=== PATIENT | female | born 1960 | race Hispanic/Latino ===

== ENCOUNTER 2016-12-11 23:37 | Inpatient (IN) | payer MEDICARE ==
[2016-12-12 00:13] LABS: Basophils % (Auto) 0.1 % (0.0-1.8); Eosinophils % (Auto) 0.2 % (0.0-4.3); Hematocrit 40.5 % (30.3-42.9); Mean Corpuscular HGB Conc 32 % (30-34); Mean Corpuscular Hemoglobin 30 pg (28-32); Mean Corpuscular Volume 95 fl (79-97); Platelet Count 257 K/mm3 (140-440); Red Blood Count 4.28 M/mm3 (3.65-5.03); Red Cell Distribution Width 14.3 % (13.2-15.2); White Blood Count 15.1 K/mm3 (4.5-11.0)
[2016-12-12 00:22] LABS: BUN/Creatinine Ratio 16.31; Blood Urea Nitrogen 31 mg/dL (7-17); Calcium 10.3 mg/dL (8.4-10.2); Carbon Dioxide 23 mmol/L (22-30); Chloride 88.6 mmol/L (98-107); Glucose 399 mg/dL (65-100); Potassium 4.5 mmol/L (3.6-5.0); Sodium 132 mmol/L (137-145)
[2016-12-12 00:28] LABS: Anion Gap 25 mmol/L
[2016-12-12 00:35] LABS: INR 1.09 (0.87-1.13); Partial Thromboplastin Time 27.6 Sec. (24.2-36.6)
[2016-12-12] MEDS ORDERED: NACL 0.9% 1000 ML 1,000 ML IV ONE ×3 (01:25→18:27)
--- NOTE | 2016-12-12 01:30 | Emergency Department Report ---
ED Neuro Deficit HPI - General Chief Complaint: Neuro Symptoms/Deficit Stated Complaint: AMS Time Seen by Provider: 12/12/16 00:58 Source: patient Mode of arrival: Stretcher Limitations: No Limitations - History of Present Illness Initial Comments: 56-year-old female with past medical history of non-insulin dependent diabetes, hypertension, and chronic intermittent left middle toe infection presents to Hospital complaints of strokelike symptoms since 17:00. Patient states the EMS reports the patient failed the stroke scale tests and had some right arm deficit. Patient states that her speech is clear but occasionally worse Up. at the bedside states that patient is still having this work mixup symptoms. Patient also had episodes of falling today but has history of frequent falls and has chronic left knee pain and needs knee replacement. Patient denies any pain. She takes an aspirin 81 mg daily and has been compliant. She reports she had a recent outpatient MRI for left toe infection. Denies previous history of stroke. PMD: [place] - Related Data Allergies/Adverse Reactions: Allergies Allergy/AdvReac Type Severity Reaction Status Date / Time sulfamethoxazole Allergy Unknown Verified 12/11/16 23:49 [From Bactrim] trimethoprim [From Bactrim] Allergy Unknown Verified 12/11/16 23:49 ED Review of Systems ROS: Stated complaint: AMS Other details as noted in HPI Comment: All other systems reviewed and negative Other: Constitutional: No fevers chills Eyes: No eye pain visual changes ENT: No ear pain or throat pain Neck: Denies pain Respiratory: Denies cough wheezing shortness of breath Cardiovascular: Denies chest pain, palpitations, syncope GI: Denies abdominal pain, nausea, vomiting, diarrhea : Denies dysuria Musculoskeletal: Denies back pain Skin: As per HPI Neurologic: Denies headache Psychiatric: Denies suicidal ideation, hallucinations ED Past Medical Hx - Past Medical History Previous Medical History?: Yes Hx Hypertension: Yes Hx Diabetes: Yes - Surgical History Past Surgical History?: Yes Additional Surgical History: c section x 1 - Social History Smoking Status: Never Smoker Substance Use Type: Alcohol ED Neuro Physical Exam - General Limitations: No Limitations General appearance: alert Suspected Stroke: Yes - Neurological Exam Neurological exam: Present: alert - NIHSS Assessment Interval: Baseline 1a. Level of Consciousness: alert 1b. LOC Questions: answers correctly 1c. LOC Commands: performs tasks correctly 2. Best Gaze: normal 3. Visual: no visual loss 4. Facial Palsy: normal symmetrical movement 5b. Motor Arm Right: no drift 5a. Motor Arm Left: no drift 6a. Motor Leg Left: drift 6b. Motor Leg Right: drift 7. Limb Ataxia: absent 8. Sensory: normal 9. Best Language: no aphasia 10. Dysarthria: normal 11. Extinction/Inattention: no abnormality Total Score: 2 Stroke Severity: Minor Stroke - Other Other exam information: General: No limitations, patient is alert in no acute distress Head exam: Atraumatic, normocephalic Eyes exam: Normal appearance, pupils equal reactive to light, extraocular movements intact ENT: Moist mucous membrane, normal oropharynx Neck exam: Normal inspection, full range of motion, no meningismus nontender Respiratory exam: Clear to auscultation bilateral, no wheezes, rales, crackles Cardiovascular: Normal rate and rhythm, normal heart sounds Abdomen: Soft, nondistended, and nontender, with normal bowel sounds, no rebound, or guarding Extremity: Full range of motion normal inspection no deformity Back: Normal Inspection, full range of motion, no tenderness Neurologic: Alert, oriented x3, cranial nerves intact, see NIH stroke scale. No unilateral deficit noted.Deficit noted at this time but states still present and intermittent Psychiatric: normal affect, normal mood Skin: Left foot third toe ulceration with mild discoloration ED Course Vital Signs 12/11/16 23:50 Temperature 99.2 F Pulse Rate 112 H Respiratory 18 Rate Blood Pressure 108/36 O2 Sat by Pulse 98 Oximetry - Lab Data Result diagrams: 12/12/16 00:05 12/11/16 23:50 Lab Results 12/11/16 12/11/16 12/11/16 Range/Units 23:50 23:50 23:50 WBC (4.5-11.0) K/mm3 RBC (3.65-5.03) M/mm3 Hgb (10.1-14.3) gm/dl Hct (30.3-42.9) % MCV (79-97) fl MCH (28-32) pg MCHC (30-34) % RDW (13.2-15.2) % Plt Count (140-440) K/mm3 Lymph % (Auto) (13.4-35.0) % [place] % (Auto) (0.0-7.3) % Eos % (Auto) (0.0-4.3) % Baso % (Auto) (0.0-1.8) % Lymph # (1.2-5.4) K/mm3 [place] # (0.0-0.8) K/mm3 Eos # (0.0-0.4) K/mm3 Baso # (0.0-0.1) K/mm3 Seg Neutrophils % (40.0-70.0) % Seg Neutrophils # (1.8-7.7) K/mm3 PT 14.0 (12.2-14.9) Sec. INR 1.09 (0.87-1.13) APTT 27.6 (24.2-36.6) Sec. Thrombin Time 16.6 (15.1-19.6) Sec. Sodium 132 L (137-145) mmol/L Potassium 4.5 (3.6-5.0) mmol/L Chloride 88.6 L (98-107) mmol/L Carbon Dioxide 23 (22-30) mmol/L Anion Gap 25 mmol/L BUN 31 H (7-17) mg/dL Creatinine 1.9 H (0.7-1.2) mg/dL Estimated GFR 27 ml/min BUN/Creatinine Ratio 16.31 % Glucose 399 H (65-100) mg/dL Calcium 10.3 H (8.4-10.2) mg/dL Troponin T < 0.010 (0.00-0.029) ng/mL 12/12/16 Range/Units 00:05 WBC 15.1 H (4.5-11.0) K/mm3 RBC 4.28 (3.65-5.03) M/mm3 Hgb 13.0 (10.1-14.3) gm/dl Hct 40.5 (30.3-42.9) % MCV 95 (79-97) fl MCH 30 (28-32) pg MCHC 32 (30-34) % RDW 14.3 (13.2-15.2) % Plt Count 257 (140-440) K/mm3 Lymph % (Auto) 6.5 L (13.4-35.0) % [place] % (Auto) 5.5 (0.0-7.3) % Eos % (Auto) 0.2 (0.0-4.3) % Baso % (Auto) 0.1 (0.0-1.8) % Lymph # 1.0 L (1.2-5.4) K/mm3 [place] # 0.8 (0.0-0.8) K/mm3 Eos # 0.0 (0.0-0.4) K/mm3 Baso # 0.0 (0.0-0.1) K/mm3 Seg Neutrophils % 87.7 H (40.0-70.0) % Seg Neutrophils # 13.2 H (1.8-7.7) K/mm3 PT (12.2-14.9) Sec. INR (0.87-1.13) APTT (24.2-36.6) Sec. Thrombin Time (15.1-19.6) Sec. Sodium (137-145) mmol/L Potassium (3.6-5.0) mmol/L Chloride (98-107) mmol/L Carbon Dioxide (22-30) mmol/L Anion Gap mmol/L BUN (7-17) mg/dL Creatinine (0.7-1.2) mg/dL Estimated GFR ml/min BUN/Creatinine Ratio % Glucose (65-100) mg/dL Calcium (8.4-10.2) mg/dL Troponin T (0.00-0.029) ng/mL - EKG Data -: EKG Interpreted by Me (sinus tach 113 inferior Q waves anterolateral Q waves) When compared to previous EKG there are: previous EKG unavailable - Radiology Data Radiology results: report reviewed (CT head: No acute findings) - Medical Decision Making Patient does not appear to have focal findings on exam but insisted she has intermittent speech abnormality. CT head without acute findings. Will admit to the hospital for further neurologic/stroke workup - Differential Diagnosis CVA, encephalopathy, TIA, ICH Critical Care Time: No Critical care attestation.: If time is entered above; I have spent that time in minutes in the direct care of this critically ill patient, excluding procedure time. ED Disposition Clinical Impression: Speech abnormality, Chronic ulcer of toe of left foot, Diabetes, Hypertension, Obesity, Renal insufficiency Disposition: OP ADMIT IP TO THIS HOSP Is pt being admited?: Yes Condition: Stable Time of Disposition: 02:13 (Dr Winkler/hosp)
--- NOTE | 2016-12-12 01:41 | Cat Scan Report ---
FINAL REPORT PROCEDURE: CT HEAD/BRAIN WO CON TECHNIQUE: Computerized tomography of the head was performed without contrast material. HISTORY: RT ARM RETRACTION MIXES WORDS UP CONFUSION COMPARISON: No prior studies are available for comparison. FINDINGS: Skull and scalp: Normal. Paranasal sinuses: Normal. Ventricles and subarachnoid spaces: Normal. Cerebrum: No evidence of hemorrhage, acute infarction or mass. Mild atrophy and periventricular deep white matter changes.. Cerebellum and brainstem: No evidence of hemorrhage, acute infarction or mass. Vasculature: Normal. Comments: None. IMPRESSION: There is no evidence of an acute intracranial process. Minimal atrophy and periventricular deep white matter changes.
[2016-12-12] MEDS ORDERED: D50W (25GM) Syringe IV PRN (03:23)
[2016-12-12] MEDS ORDERED: ZOFRAN IV PRN (03:31)
[2016-12-12] MEDS ORDERED: DULCOLAX PR PRN (03:31)
[2016-12-12] MEDS ORDERED: MILK OF MAGNESIA PO PRN (03:31)
[2016-12-12] MEDS ORDERED: SODIUM CHLORIDE FLUSH SYRINGE 10 ML IV PRN (03:31)
--- NOTE | 2016-12-12 03:48 | History and Physical Report ---
History of Present Illness Date of examination: 12/12/16 History of present illness: 56-year-old woman history of hypertension, diabetes comes emergency room because the stated that she had slurred speech, difficulty articulating and appear confused, she would not respond when he spoke to her. The symptoms lasted for 30 minutes Review Of Systems: Constitutional: no fever, chills, weight loss Ears, eyes, nose, mouth and throat: no nasal congestion, no nasal discharge, no sinus pressure, blurry vision, diplopia Neck: No neck pain or rigidity. Cardiovascular: chest pain, orthopnea, palpitations Respiratory: No shortness of breath, cough Gastrointestinal: abdominal pain, hematochezia Genitourinary : no dysuria, frequency , hematuria Musculoskeletal: no joint swelling or muscle ache Integumentary: no rash, no pruritis Neurological: no parathesias, focal weakness Endocrine: no cold or heat intolerance, no polyuria or polydipsia Hematologic/Lymphatic: no easy bruising, no easy bleeding, no gland swelling Allergic/Immunologic: no urticaria, no angioedema. PAST MEDICAL HISTORY: hypertension, diabetes PAST SURGICAL HISTORY: c/section 1 FAMILY HISTORY: Hypertension SOCIAL HISTORY: Denies alcohol, tobacco, drugs Medications and Allergies Allergies Allergy/AdvReac Type Severity Reaction Status Date / Time sulfamethoxazole Allergy Unknown Verified 12/11/16 23:49 [From Bactrim] trimethoprim [From Bactrim] Allergy Unknown Verified 12/11/16 23:49 Home Medications Medication Instructions Recorded Confirmed Last Taken Type Amitriptyline [Elavil] 100 mg PO QHS 12/12/16 12/12/16 12/11/16 History Atenolol [Tenormin] 50 mg PO DAILY 12/12/16 12/12/16 12/11/16 History Gabapentin [Neurontin] 800 mg PO Q8H 12/12/16 12/12/16 12/11/16 History HYDROcodone/APAP 5-325 [[place] 1 each PO Q6HR PRN 12/12/16 12/12/16 12/11/16 History 5/325] Levothyroxine [Synthroid] 100 mcg PO QAM 12/12/16 12/12/16 12/11/16 History Lisinopril [Zestril] 20 mg PO QDAY 12/12/16 12/12/16 12/11/16 History Simvastatin [Zocor TAB] 40 mg PO QHS 12/12/16 12/12/16 12/11/16 History glipiZIDE [Glucotrol] 10 mg PO BID 12/12/16 12/12/16 12/11/16 History metFORMIN [Glucophage] 1,000 mg PO BID 12/12/16 12/12/16 12/11/16 History metFORMIN [Glucophage] 500 mg PO QDAY 12/12/16 12/12/16 12/11/16 History Active Meds: Active Medications Acetaminophen (Tylenol) 650 mg PO Q4H PRN PRN Reason: Pain, Mild (1-3) Aspirin (Aspirin) 325 mg PO QDAY LENARD Bisacodyl (Dulcolax) 10 mg DE QDAY PRN PRN Reason: Constipation Dextrose (D50w (25gm)) 50 ml IV PRN PRN PRN Reason: Hypoglycemia Enoxaparin Sodium (Lovenox) 30 mg SUB-Q QDAY LENARD Hydralazine HCl (Apresoline) 5 mg IV Q6H PRN PRN Reason: Keep SBP between 160-185 mm Hg Sodium Chloride (Nacl 0.45% 1000 Ml) 1,000 mls @ 75 mls/hr IV DIRECT LENARD Insulin Aspart (Novolog) 0 units SUB-Q ACHS LENARD PRN Reason: Protocol Magnesium Hydroxide (Milk Of Magnesia) 30 ml PO Q4H PRN PRN Reason: Constipation Ondansetron HCl (Zofran) 4 mg IV Q8H PRN PRN Reason: N/V unrelieved by Reglan Simvastatin (Zocor) 20 mg PO QHS [facility] Sodium Chloride (Sodium Chloride Flush Syringe 10 Ml) 10 ml INJ PRN PRN PRN Reason: LINE FLUSH Exam - Physical Exam Narrative exam: Gen. appearance: Patient lying in bed, no apparent distress HEENT: Normocephalic, atraumatic, pupils equally round and reactive to light, extraocular movement intact, and no sclericterus,. No JVD or thyromegaly or nodule,neck supple, no carotid bruit ,mucous membranes moist, no exudate or erythema Heart: S1, S2, regular rate and rhythm Lungs: Clear to auscultation bilaterally, breathing comfortable Abdomen: Positive bowel sounds, nontender, nondistended, no organomegaly Extremity: No edema, cyanosis, clubbing Skin: No rash, nodules, warm, dry Neuro: Oriented 3, cranial nerves II-12 intact, speech is fluent, motor and sensory intact - Constitutional Vitals: Temp Pulse Resp BP Pulse Ox 99.2 F 101 H 18 91/35 94 12/11/16 23:50 12/12/16 03:06 12/12/16 03:06 12/12/16 03:06 12/12/16 03:06 Results - Labs CBC & Chem 7: 12/14/16 03:35 12/14/16 03:35 Labs: Abnormal lab results 12/11/16 12/12/16 Range/Units 23:50 00:05 WBC 15.1 H (4.5-11.0) K/mm3 Lymph % (Auto) 6.5 L (13.4-35.0) % Lymph # 1.0 L (1.2-5.4) K/mm3 Seg Neutrophils % 87.7 H (40.0-70.0) % Seg Neutrophils # 13.2 H (1.8-7.7) K/mm3 Sodium 132 L (137-145) mmol/L Chloride 88.6 L (98-107) mmol/L BUN 31 H (7-17) mg/dL Creatinine 1.9 H (0.7-1.2) mg/dL Glucose 399 H (65-100) mg/dL Calcium 10.3 H (8.4-10.2) mg/dL - Imaging and Cardiology EKG: image reviewed Chest x-ray: image reviewed Assessment and Plan Assessment TIA Renal insufficiency, chronic versus acute Leukocytosis Hypertension Diabetes type 2 Plan Admit to medicine Obtain MRI of the head, carotid Doppler, echo Do neurochecks, swallow screen Start aspirin, statin, IV hydralazine for blood pressure control Consult neurology, physical and speech, occupational therapy Start IV fluids, check UA, blood cultures, hold antibiotics for now DVT prophylaxis
[2016-12-12] MEDS ORDERED: NACL 0.45% 1000 ML 1,000 ML IV SCH (04:00)
[2016-12-12] MEDS ORDERED: NACL 0.45% 1000 ML 1,000 ML IV ONE (04:19)
--- NOTE | 2016-12-12 08:24 | Admit Criteria Form ---
Admission Criteria Documentation: NEUROLOGY GRG Clinical Indications for Admission to Inpatient Care (Place ' X' for any and all applicable criteria): Hospital admission is needed for appropriate care of the patient because of 1 or more of the following: [ ]I. Encephalitis [ ]II. Severe COMPOSING MACHINE OPERATOR/TENDER infections indicated by 1 or more of the following(1)(2)(3) : [ ]a) Intracranial abscess [ ]b) Spinal abscess or myelitis [ ]c) Tuberculous or other nonbacterial, nonviral COMPOSING MACHINE OPERATOR/TENDER infection(8) [ ]III. Vasculitis and 1 or more of the following(14)(15): []a) Altered mental status that is severe or persistent or other acute neurologic change []b) Psychosis []c) Seizure [ ]IV. Status epilepticus or repetitive seizures not controlled with emergent treatment [A] (7)(8) [ ]V. Altered mental status that is severe or persistent [ ]. Transient alteration in consciousness with high-risk etiology; examples include (12)(13): [ ]a) Cardiovascular source [ ]b) Cataplexy [ ]VII. Cerebral aneurysm requiring ANY ONE of the following(14): [ ]a) IV antihypertensives or vasoactive agents [ ]b) Sedation and analgesia for suspected leak [ ]c) Need for external ventricular drainage and cerebral perfusion pressure monitoring [ ]d) Emergent evaluation to determine need for surgical clipping or endovascular coiling by interventional radiology. If surgery is required ( Also use Craniotomy, Supratentorial, for Surgery of Bleeding Intracranial Aneurysm (for bleeding aneurysm) or Craniotomy, Supratentorial (for nonbleeding aneurysm) as appropriate. [ ]VIII. New-onset severe neurologic symptom requiring inpatient care indicated by ANY ONE of the following: [ ]a) Aphasia(15) [ ]b) Weakness (grade 3 or less) [ ]c) Paralysis (eg, hemiplegia) [ ]d) Spasticity(16) [ ]e) Dystonia [ ]e) Ataxia(17) [ ]f) Amnesia(18) [ ]g) Involuntary movements(19) [ ]h) Vertigo [ ] Visual loss [ ]i) Other severe neurologic finding (eg, papilledema, mass effect on imaging, myoclonus not treatable at alternative level of care (eg, observation care) [ ]IX. Guillain-[place] syndrome(20) [ ]X. Myasthenia gravis crisis or inpatient monitoring need as indicated by 1 or more of the following(21): [ ]a) Intensive treatment (eg, course of plasmapheresis) with inadequate outpatient situation to monitor patients status [ ]b) Inadequate airway protection [ ]c) Respiratory insufficiency requiring intubation or inpatient. monitoring [ ]d) Progressive dysphagia with failure to thrive [ ]XI. Multiple sclerosis or other acute demyelinating disease requiring inpatient care as indicated by 1 or more of the following (22)(23): [ ]a) Acute severe deterioration requiring inpatient treatment (eg, IV steroids, plasmapheresis, close observation) [ ]b) Acute complication requiring inpatient care (eg, sepsis, severe decubitus, aspiration) [ ]XII.Parkinson disease requiring inpatient care (Also use Optimal Recovery Care Criteria or General Recovery Criteria as appropriate) indicated by 1 or more of the following(25): [ ]a) Infection (eg, aspiration pneumonia) not treatable at alternative level of care [ ]b Dehydration that is severe or persistent [ ]c) Life-threatening agitation or psychotic behavior not treatable on emergency, observation care, or alternative level (eg, residential) basis [ ]d) Severe medication withdrawal effects (eg, freezing, neuroleptic malignant syndrome) not responsive to emergency and observation care treatment ( as appropriate) [ ]e) Other severe manifestation not treatable at alternative level of care [ ]XII. Amyotrophic lateral sclerosis with inpatient care needs as indicated by ANY ONE of the following(26): [ ]a) Acute complications (eg, aspiration pneumonia, sepsis ) requiring inpatient care ( see other optimal Recovery Guideline as appropriate) [ ]b) Dehydration that is severe persistent AND artificial support desired [ ]c) Inadequate airway protection AND artificial support desired [ ]d) Severe ventilatory insufficiency AND artificial support desired [ ]XIII. Myasthenia gravis crisis or inpatient monitoring need as indicated by 1 or more of the following(21): [] a) Inadequate airway protection []b) Respiratory insufficiency requiring intubation or inpatient monitoring []c) Progressive dysphagia with failure to thrive []d) Intensive treatment (e.g., course of plasmapheresis) with inadequate outpatient situation to monitor patients status [ ]XIV. Multiple sclerosis or other acute demyelinating disease requiring inpatient care indicated by 1 or more of the following[C](36)(43)(44)(45)(46): []a) Acute severe deterioration requiring inpatient treatment (eg, IV steroids, plasmapheresis, close observation) []b) Acute complication requiring inpatient care (eg, sepsis, severe decubitus, aspiration) [ ]XV. Intracranial hypertension (e.g., pseudotumor cerebri) requiring inpatient care (e.g., acute visual loss, inadequate oral intake) (47)(48)(49) [ ]XVI. Parkinson disease requiring inpatient care (Also use Optimal Recovery Care Criteria or General Recovery Criteria as appropriate) indicated by 1 or more of the following(25): [] a) Infection (e.g., aspiration pneumonia) not treatable at alternative level of care []b) Volume depletion not responsive to emergency and observation care treatment (as appropriate) []c) Life-threatening agitation or psychotic behavior not treatable on emergency, observation care, or alternative level (e.g., residential) basis []d) Severe medication withdrawal effects (e.g., freezing, neuroleptic malignant syndrome) not responsive to emergency and observation care treatment (as appropriate) []e) Other severe manifestation not treatable at alternative level of care [ ]XVII. Amyotrophic lateral sclerosis with inpatient care needs as indicated by1 or more of the following(42): []a) Acute complications (eg, aspiration pneumonia, sepsis) requiring inpatient care (see other Optimal Recovery Guideline or General Recovery Guideline as appropriate) []b) Dehydration that is severe or persistent AND artificial support desired []c) Inadequate airway protection AND artificial support desired []d) Severe ventilatory insufficiency AND artificial support desired [ ]XVIII. Severe myopathy, neuropathy, or other neuromuscular disease indicated by 1 or more of the following(42)(52)(53)(54): []a ) New-onset severe diffuse weakness (eg, strength 3/5 or less) []b) Severe dysphagia []c) Dyspnea at rest or with minimal exertion (new) []d) Inadequate airway protection []e) Inadequate ventilation indicated by 1 or more of the following : i) Partial pressure of carbon dioxide greater than 44 mm Hg ( 5.9 kPa) (new) ii) Reduced peak expiratory flow rate (new) iii) Vital capacity less than 50% of predicted (less than 15 mL/kg) iv) Peak inspiratory force less negative than -30 cm H2O (- 2942 Pa) [ ]XVII.Complications of congenital or degenerative disease (eg, infection, seizures, dehydration, injury) not responsive to emergency and observation care treatment (as appropriate ) [C](16)(29)(30) [ ]XVIII.Suspected or confirmed nerve or muscle toxic injury, including ANY ONE of the following: [ ]a) Rhabdomyolysis(31) i) Acute renal failure ii) Dehydration that is severe or persistent iii) Altered mental status that is severe or persistent iv) Electrolyte abnormality that remains after emergency or observation level care ( as appropriate) [ ]b) Botulism(32) [ ]c) Other severe toxin-induced sign or symptom [ ]XIX. Neurologic trauma requiring inpatient treatment (medical) indicated by ANY ONE of the following(33)(34): [ ]a) Vital signs or neurologic signs more frequently than every 4 hours [ ]b) Hyperosmolar therapy [ ]c) Respiratory monitoring [ ]d) Intracranial pressure monitoring and treatment [ ]e) Stabilization and immobilization device placement (eg, braces, body jacket) [ ]f) Intubation & mechanical ventilation for airway protection or therapeutic hyperventilation [ ]g) Other treatment or monitoring needed that requires inpatient level of care [ ]XX.Complications of neurologic devices (eg, ventricular shunt, neurostimulator) requiring 1 or more of the following(35)(36): [ ]a) IV antibiotics with monitoring while awaiting culture results [ ]b) Monitoring for hydrocephalus [ X]XXI. Neurology condition symptom, or finding for which emergency and observation care have failed or are not considered appropriate. See General Criteria: Observation Care ISC, General Admission Criteria GRG, or Pediatric General Admission Criteria GRG guideline as appropriate. The original [facility] [employer] content created by [email or web address] has been revised. The portions of the content which have been revised are identified through the use of italic text or in bold, and [facility] has neither reviewed nor approved the modified material. All other unmodified content is copyright [facility] Please see references footnoted in the original [facility] edition 2016 Admission Criteria Met: Yes
[2016-12-12] MEDS ORDERED: LOVENOX SUB-Q SCH (10:00)
--- NOTE | 2016-12-12 10:35 | Magnetic Resonance Report ---
MRI scan of brain: History: Stroke. Technique: Multiplanar, multisequence images were obtained without contrast injection. Findings: No evidence of restricted diffusion. Ventricles are normal in size and location. No evidence of acute ischemia, hemorrhage or mass. No extra-axial fluid collection. Normal brainstem and cerebellum. Periventricular areas of hyperintensity. Normal sinuses and mastoid air cells. Impression: No acute intracranial abnormality. Small vessel ischemic changes.
[2016-12-12] MEDS: ASPIRIN PO SCH (11:42)
[2016-12-12] MEDS: LOVENOX SUB-Q SCH (11:43)
[2016-12-12] MEDS: NOVOLOG SUB-Q SCH ×4 (11:44→21:21)
[2016-12-12] MEDS ORDERED: PNEUMOVAX 23 IM ONE (12:00)
[2016-12-12] MEDS ORDERED: Fluarix Quad 2017-2018(36 MOS+) IM ONE (12:00)
--- NOTE | 2016-12-12 15:13 | Event Note ---
Date: 12/12/16 Patient seen and evaluated. Admitted with altered mental status and TIA suspected, but MRI brain with no abnormality. Diff dg - glycemic hyperosmolar state vs infection vs drug use. Will obtain UA , urine culture, UDS and CXR. Continue empiric antibiotic coverage and supportive care.
--- NOTE | 2016-12-12 15:34 | XRay Report ---
CHEST ONE VIEW INDICATION: Shortness of breath. COMPARISON: None similar. FINDINGS: Portable, single, frontal chest radiograph demonstrates hypoinflation with exaggerated cardiomediastinal silhouette. Grossly clear lungs, though markings slightly crowded centrally. Thoracic spondylosis. Extrinsic EKG leads. CONCLUSION: Limited, though unremarkable chest radiograph, as described. Thank you for the opportunity to participate in this patient's care.
[2016-12-12] MEDS: NACL 0.9% 1000 ML 1,000 ML IV SCH ×2 (18:22→19:53)
[2016-12-12] MEDS: ZOCOR PO SCH (21:20)
[2016-12-12 21:41] LABS: Urine Drugs of Abuse Note Disclamer
[2016-12-12 21:59] LABS: Bacteria,Urine 4+ /HPF (Negative); Bilirubin,Urine NEG (Negative); Blood,Urine LG (Negative); Ketones,Urine NEG (Negative); Leukocyte Esterase,Urine LG (Negative); Nitrite,Urine NEG (Negative); Urobilinogen,Urine < 2.0 mg/dL (<2.0); WBC,Urine > 182.0 /HPF (0.0-6.0)
[2016-12-13 03:56] LABS: Basophils % (Auto) 0.2 % (0.0-1.8); Eosinophils % (Auto) 0.1 % (0.0-4.3); Hematocrit 34.3 % (30.3-42.9); Hemoglobin 11.3 gm/dl (10.1-14.3); Mean Corpuscular HGB Conc 33 % (30-34); Mean Corpuscular Hemoglobin 31 pg (28-32); Mean Corpuscular Volume 93 fl (79-97); Platelet Count 118 K/mm3 (140-440); Red Blood Count 3.68 M/mm3 (3.65-5.03); Red Cell Distribution Width 14.8 % (13.2-15.2); White Blood Count 9.9 K/mm3 (4.5-11.0)
[2016-12-13 04:29] LABS: Albumin 2.6 g/dL (3.9-5); Albumin/Globulin Ratio 0.6 %; BUN/Creatinine Ratio 15.8; Bilirubin,Total 0.3 mg/dL (0.1-1.2); Calcium 8.3 mg/dL (8.4-10.2); Chloride 96.5 mmol/L (98-107); Magnesium 1.2 mg/dL (1.7-2.3); Phosphorous 2.7 mg/dL (2.5-4.5); Potassium 4.5 mmol/L (3.6-5.0); Total Protein 6.8 g/dL (6.3-8.2)
[2016-12-13] MEDS: NACL 0.9% 1000 ML 1,000 ML IV SCH ×2 (05:23→14:11)
[2016-12-13] MEDS: NOVOLOG SUB-Q SCH ×4 (08:26→22:00)
[2016-12-13] MEDS: TYLENOL PO PRN ×2 (09:33→22:34)
[2016-12-13] MEDS: ASPIRIN PO SCH (09:35)
[2016-12-13] MEDS: LOVENOX SUB-Q SCH (09:35)
[2016-12-13] MEDS: ROCEPHIN/NS 2 GM/100 ML 2 GM/100 ML BAG IV SCH (12:39)
--- NOTE | 2016-12-13 13:24 | Consultation ---
History of Present Illness - Reason for Consult Consult date: 12/13/16 acute renal failure Requesting physician: DOMINGO COOK - History of Present Illness 56-year-old female with past medical history of non-insulin dependent diabetes, hypertension, and chronic intermittent left middle toe infection presents to Hospital complaints of stroke like symptoms. Per chart pt has slurred speech and right arm weakness in association with confusion. Family also reported that she had a fall. We are consulted today for evaluation of elevated BUN/CR of 49/ 3.1 mg/dL. Admission CR was at 1.9. Patient is not able to proved detailed history. No contrast exposure. No baseline CRs available. She follows up at [facility]. No NSAIDs. Past History Past Medical History: diabetes, hypertension, other (frequent falls ) Social history: other (lives with ). denies: smoking, alcohol abuse, IV drug use Family history: no significant family history Medications and Allergies Allergies Allergy/AdvReac Type Severity Reaction Status Date / Time sulfamethoxazole Allergy Unknown Verified 12/11/16 23:49 [From Bactrim] trimethoprim [From Bactrim] Allergy Unknown Verified 12/11/16 23:49 Home Medications Medication Instructions Recorded Confirmed Last Taken Type Amitriptyline [Elavil] 100 mg PO QHS 12/12/16 12/12/16 12/11/16 History Atenolol [Tenormin] 50 mg PO DAILY 12/12/16 12/12/16 12/11/16 History Gabapentin [Neurontin] 800 mg PO Q8H 12/12/16 12/12/16 12/11/16 History HYDROcodone/APAP 5-325 [[place] 1 each PO Q6HR PRN 12/12/16 12/12/16 12/11/16 History 5/325] Levothyroxine [Synthroid] 100 mcg PO QAM 12/12/16 12/12/16 12/11/16 History Lisinopril [Zestril] 20 mg PO QDAY 12/12/16 12/12/16 12/11/16 History Simvastatin [Zocor TAB] 40 mg PO QHS 12/12/16 12/12/16 12/11/16 History glipiZIDE [Glucotrol] 10 mg PO BID 12/12/16 12/12/16 12/11/16 History metFORMIN [Glucophage] 1,000 mg PO BID 12/12/16 12/12/16 12/11/16 History metFORMIN [Glucophage] 500 mg PO QDAY 12/12/16 12/12/16 12/11/16 History Active Meds: Active Medications Acetaminophen (Tylenol) 650 mg PO Q4H PRN PRN Reason: Pain, Mild (1-3) Last Admin: 12/13/16 09:33 Dose: 650 mg Aspirin (Aspirin) 325 mg PO QDAY [facility] Last Admin: 12/13/16 09:35 Dose: 325 mg Bisacodyl (Dulcolax) 10 mg [place] QDAY PRN PRN Reason: Constipation Dextrose (D50w (25gm)) 50 ml IV PRN PRN PRN Reason: Hypoglycemia Enoxaparin Sodium (Lovenox) 40 mg SUB-Q QDAY@1000 [facility] Last Admin: 12/13/16 09:35 Dose: 40 mg Hydralazine HCl (Apresoline) 5 mg IV Q6H PRN PRN Reason: Keep SBP between 160-185 mm Hg Ceftriaxone Sodium (Rocephin/Ns 2 Gm/100 Ml) 2 gm in 100 mls @ 200 mls/hr IV Q24HR [facility] PRN Reason: Protocol Last Admin: 12/13/16 12:39 Dose: 200 mls/hr Sodium Chloride (Nacl 0.9% 1000 Ml) 1,000 mls @ 100 mls/hr IV DIRECT [facility] Insulin Aspart (Novolog) 0 units SUB-Q ACHS [facility] PRN Reason: Protocol Last Admin: 12/13/16 12:22 Dose: 4 units Magnesium Hydroxide (Milk Of Magnesia) 30 ml PO Q4H PRN PRN Reason: Constipation Ondansetron HCl (Zofran) 4 mg IV Q8H PRN PRN Reason: N/V unrelieved by Reglan Simvastatin (Zocor) 20 mg PO QHS [facility] Last Admin: 12/12/16 21:20 Dose: 20 mg Sodium Chloride (Sodium Chloride Flush Syringe 10 Ml) 10 ml IV PRN PRN PRN Reason: LINE FLUSH Review of Systems Constitutional: anorexia, fatigue, weakness Ears, nose, mouth and throat: no decreased hearing, no nasal congestion Cardiovascular: no chest pain, no orthopnea, no palpitations, no syncope, no lightheadedness Respiratory: no cough, no hemoptysis Gastrointestinal: no nausea, no vomiting, no diarrhea, no constipation Genitourinary Female: no pelvic pain, no flank pain, no urinary frequency, no urgency Rectal: no pain, no incontinence Musculoskeletal: no neck stiffness, no neck pain Integumentary: no rash, no pruritis, no redness Neurological: no paralysis, no weakness, no parathesias Psychiatric: disorientation, other (confused, ) Endocrine: no cold intolerance, no heat intolerance Exam - Vital Signs Vital signs: Vital Signs Temp Pulse Resp BP Pulse Ox 99.2 F 112 H 18 108/36 98 12/11/16 23:50 12/11/16 23:50 12/11/16 23:50 12/11/16 23:50 12/11/16 23:50 Results - Lab Results 12/13/16 03:39 12/13/16 03:39 Most recent lab results Calcium 8.3 mg/dL (8.4-10.2) L D 12/13/16 03:39 Phosphorus 2.70 mg/dL (2.5-4.5) 12/13/16 03:39 Magnesium 1.20 mg/dL (1.7-2.3) L 12/13/16 03:39 Assessment and Plan 1. TAYA likely 2/2 prerenal azotemia/ATN. Underlying CKD ? baseline unavailable 2. Dehydration 3. Essential HTN 4. Type II Diabetes 5. AMS Plan: Obtain Urine studies Obtain renal U/S IVF Avoid nephrotoxins No ACEI/ARB Obtain records from [facility] --baseline CR Further recommendations to follow Thank you for the consult
--- NOTE | 2016-12-13 19:10 | Progress Note ---
Assessment and Plan Assessment and plan: 1. Sepsis secondary to UTI Fever, tachycardia, positive UA, elevated lactic acid Urine and blood cultures obtained Started on IV antibiotics and IV fluids 2. Acute toxic metabolic encephalopathy Secondary to combination of sepsis and uremia Treat underlying conditions 3. Acute renal failure with metabolic acidosis and uremia Obtain renal ultrasound to exclude obstruction Check magnesium and phosphorous Give IV fluids Consult nephrology 4. Hypomagnesemia Replace and recheck in a.m. 5. Hypertension Home antihypertensives on hold BP within normal limits and no medication Monitor 6. Diabetes Accu-Cheks and SSI 7. Hyperlipidemia On Statin 8. Hypothyroidism TSH within normal limits Continue Synthroid at current dose 9. DVT/GI prophylaxis History Interval history: Somnolent, but easily arousable; confused, but answering simple questions appropriately Hospitalist Physical - Constitutional Vitals: Temp Pulse Resp BP Pulse Ox 98.4 F 60 20 101/59 94 12/13/16 17:00 12/13/16 17:00 12/13/16 17:00 12/13/16 17:00 12/13/16 17:00 General appearance: Present: mild distress, obese - EENT Eyes: Present: PERRL, EOM intact. Absent: scleral icterus, conjunctival injection - Neck Neck: Present: supple, normal ROM. Absent: masses or JVD - Respiratory Respiratory effort: normal Respiratory: bilateral: diminished, negative: rhonchi, wheezing - Cardiovascular Rhythm: other (tachycardic) Heart Sounds: Present: S1 & S2. Absent: systolic murmur - Extremities Extremities: no ischemia - Abdominal General gastrointestinal: soft, non-tender, non-distended, normal bowel sounds, other (abdomen obese, protuberant) - Integumentary Integumentary: Present: dry. Absent: jaundice, rash, pale - Psychiatric Psychiatric: other (confused) - Neurologic Neurologic: moves all extremities Results - Labs CBC & Chem 7: 12/14/16 03:35 12/14/16 03:35 Labs: Laboratory Last Values WBC 9.9 K/mm3 (4.5-11.0) 12/13/16 03:39 RBC 3.68 M/mm3 (3.65-5.03) 12/13/16 03:39 Hgb 11.3 gm/dl (10.1-14.3) 12/13/16 03:39 Hct 34.3 % (30.3-42.9) D 12/13/16 03:39 MCV 93 fl (79-97) 12/13/16 03:39 MCH 31 pg (28-32) 12/13/16 03:39 MCHC 33 % (30-34) 12/13/16 03:39 RDW 14.8 % (13.2-15.2) 12/13/16 03:39 Plt Count 118 K/mm3 (140-440) L 12/13/16 03:39 Lymph % (Auto) 7.4 % (13.4-35.0) L 12/13/16 03:39 [place] % (Auto) 7.6 % (0.0-7.3) H 12/13/16 03:39 Eos % (Auto) 0.1 % (0.0-4.3) 12/13/16 03:39 Baso % (Auto) 0.2 % (0.0-1.8) 12/13/16 03:39 Lymph # 0.7 K/mm3 (1.2-5.4) L 12/13/16 03:39 [place] # 0.7 K/mm3 (0.0-0.8) 12/13/16 03:39 Eos # 0.0 K/mm3 (0.0-0.4) 12/13/16 03:39 Baso # 0.0 K/mm3 (0.0-0.1) 12/13/16 03:39 Seg Neutrophils % 84.7 % (40.0-70.0) H 12/13/16 03:39 Seg Neutrophils # 8.4 K/mm3 (1.8-7.7) H 12/13/16 03:39 PT 14.0 Sec. (12.2-14.9) 12/11/16 23:50 INR 1.09 (0.87-1.13) 12/11/16 23:50 APTT 27.6 Sec. (24.2-36.6) 12/11/16 23:50 Thrombin Time 16.6 Sec. (15.1-19.6) 12/11/16 23:50 Sodium 133 mmol/L (137-145) L 12/13/16 03:39 Potassium 4.5 mmol/L (3.6-5.0) 12/13/16 03:39 Chloride 96.5 mmol/L (98-107) L 12/13/16 03:39 Carbon Dioxide 18 mmol/L (22-30) L 12/13/16 03:39 Anion Gap 23 mmol/L 12/13/16 03:39 BUN 49 mg/dL (7-17) H 12/13/16 03:39 Creatinine 3.1 mg/dL (0.7-1.2) H D 12/13/16 03:39 Estimated GFR 15 ml/min 12/13/16 03:39 BUN/Creatinine Ratio 15.80 % 12/13/16 03:39 Glucose 173 mg/dL (65-100) H 12/13/16 03:39 POC Glucose 247 (70-105) H 12/13/16 17:23 Lactic Acid 2.90 mmol/L (0.7-2.0) H* 12/12/16 19:51 Calcium 8.3 mg/dL (8.4-10.2) L D 12/13/16 03:39 Phosphorus 2.70 mg/dL (2.5-4.5) 12/13/16 03:39 Magnesium 1.20 mg/dL (1.7-2.3) L 12/13/16 03:39 Total Bilirubin 0.30 mg/dL (0.1-1.2) 12/13/16 03:39 AST 25 units/L (5-40) 12/13/16 03:39 ALT 23 units/L (7-56) 12/13/16 03:39 Alkaline Phosphatase 83 units/L (35-129) 12/13/16 03:39 Troponin T < 0.010 ng/mL (0.00-0.029) 12/11/16 23:50 Total Protein 6.8 g/dL (6.3-8.2) 12/13/16 03:39 Albumin 2.6 g/dL (3.9-5) L 12/13/16 03:39 Albumin/Globulin Ratio 0.6 % 12/13/16 03:39 Triglycerides 166 mg/dL (2-149) H 12/13/16 03:39 Cholesterol 66 mg/dL (50-199) 12/13/16 03:39 LDL Cholesterol Direct 24 mg/dL (50-130) L 12/13/16 03:39 HDL Cholesterol 9 mg/dL (40-59) L 12/13/16 03:39 Cholesterol/HDL Ratio 7.33 % 12/13/16 03:39 TSH 2.640 mlU/mL (0.270-4.200) 12/12/16 15:23 Urine Color Yellow (Yellow) 12/12/16 21:30 Urine Turbidity Turbid (Clear) 12/12/16 21:30 Urine pH 5.0 (5.0-7.0) 12/12/16 21:30 Ur Specific [place] 1.015 (1.003-1.030) 12/12/16 21:30 Urine Protein 100 mg/dl mg/dL (Negative) 12/12/16 21:30 Urine Glucose (UA) Neg mg/dL (Negative) 12/12/16 21:30 Urine Ketones Neg mg/dL (Negative) 12/12/16 21:30 Urine Blood Lg (Negative) 12/12/16 21:30 Urine Nitrite Neg (Negative) 12/12/16 21:30 Urine Bilirubin Neg (Negative) 12/12/16 21:30 Urine Urobilinogen < 2.0 mg/dL (<2.0) 12/12/16 21:30 Ur Leukocyte Esterase Lg (Negative) 12/12/16 21:30 Urine WBC (Auto) > 182.0 /HPF (0.0-6.0) H 12/12/16 21:30 Urine RBC (Auto) 62.0 /HPF (0.0-6.0) 12/12/16 21:30 U Epithel Cells (Auto) 7.0 /HPF (0-13.0) 12/12/16 21:30 Urine Bacteria (Auto) 4+ /HPF (Negative) 12/12/16 21:30 Urine WBC Clumps 3+ /HPF 12/12/16 21:30 Calcium Oxalate Crystal 3+ 12/12/16 21:30 Urine Opiates Screen Presumptive negative 12/12/16 21:30 Urine Methadone Screen Presumptive negative 12/12/16 21:30 Ur Barbiturates Screen Presumptive negative 12/12/16 21:30 Ur Phencyclidine Scrn Presumptive negative 12/12/16 21:30 Ur Amphetamines Screen Presumptive negative 12/12/16 21:30 U Benzodiazepines Scrn Presumptive negative 12/12/16 21:30 Urine Cocaine Screen Presumptive negative 12/12/16 21:30 U Marijuana (THC) Screen Presumptive negative 12/12/16 21:30 Drugs of Abuse Note Disclamer 12/12/16 21:30
[2016-12-13] MEDS: ZOCOR PO SCH (22:34)
[2016-12-14 04:06] LABS: Basophils % (Auto) 0.1 % (0.0-1.8); Eosinophils % (Auto) 0.9 % (0.0-4.3); Hematocrit 31.5 % (30.3-42.9); Hemoglobin 10.5 gm/dl (10.1-14.3); Mean Corpuscular HGB Conc 33 % (30-34); Mean Corpuscular Hemoglobin 31 pg (28-32); Mean Corpuscular Volume 92 fl (79-97); Red Blood Count 3.42 M/mm3 (3.65-5.03); Red Cell Distribution Width 14.7 % (13.2-15.2); White Blood Count 5.5 K/mm3 (4.5-11.0)
[2016-12-14 04:09] LABS: Platelet Count 86 K/mm3 (140-440)
[2016-12-14 04:21] LABS: Calcium 8.1 mg/dL (8.4-10.2); Chloride 96.2 mmol/L (98-107); Magnesium 1.3 mg/dL (1.7-2.3); Phosphorous 4.4 mg/dL (2.5-4.5); Potassium 5.1 mmol/L (3.6-5.0)
--- NOTE | 2016-12-14 09:39 | Ultrasound Report ---
ULTRASOUND RENAL BILATERAL HISTORY: Acute renal failure. TECHNIQUE: transabdominal ultrasound with color Doppler interrogation. FINDINGS: The right kidney measures 12.2 x 5.6 x 5.9cm. Right renal cortex: 1.9cm. The left kidney measures 9.4 x 6.4 x 5.6cm. Left renal cortex: 1.7cm. No comparison. The right kidney appears normal size, contour and echotexture. No right renal lesion or hydronephrosis. Views of the left kidney are very limited. No gross left renal abnormality is appreciated. IMPRESSION: Limited exam. No abnormality is appreciated.
[2016-12-14] MEDS: ASPIRIN PO SCH (10:19)
[2016-12-14] MEDS: ROCEPHIN/NS 2 GM/100 ML 2 GM/100 ML BAG IV SCH (10:19)
[2016-12-14] MEDS: LOVENOX SUB-Q SCH (10:22)
[2016-12-14] MEDS: NACL 0.9% 1000 ML 1,000 ML IV SCH (10:54)
[2016-12-14] MEDS: NOVOLOG SUB-Q SCH ×4 (11:20→22:01)
--- NOTE | 2016-12-14 12:38 | Progress Note ---
Assessment and Plan Assessment and plan: 1. Sepsis secondary to UTI Fever, tachycardia, positive UA, elevated lactic acid Urine and blood cultures positive for GNR Change antibiotics to Zosyn and levofloxacin Continue aggressive hydration Supportive care 2. Acute toxic metabolic encephalopathy Secondary to sepsis/uremia/electrolytes abnormalities Treat underlying conditions 3. Acute renal failure with metabolic acidosis, uremia and hyperkalemia Worsening, creatinine 4.2 and BUN 63 today US with no obstruction Continue aggressive hydration, add bicarbonate 4. Hyperkalemia Give Kayexalate and recheck 5. Hypomagnesemia IV replacement, recheck in a.m. 6. Hypertension Currently BP within normal limits and no medications Monitor 7. Diabetes BS in 100s Checks and SSI 8. Hyperlipidemia On statin 9. Hypothyroidism TSH within normal limits Continue Synthroid at current dose 10. DVT prophylaxis Change Lovenox to heparin subcutaneous due to worsening renal function History Interval history: still confused, somnolent discussed with Hospitalist Physical - Constitutional Vitals: Temp Pulse Resp BP Pulse Ox 97.5 F L 106 H 24 122/72 94 12/14/16 07:40 12/14/16 07:40 12/14/16 07:40 12/14/16 07:40 12/14/16 07:40 General appearance: Present: mild distress, obese - EENT Eyes: Present: PERRL, EOM intact. Absent: scleral icterus, conjunctival injection - Neck Neck: Present: supple. Absent: enlarged thyroid, masses or JVD - Respiratory Respiratory effort: normal Respiratory: bilateral: diminished, negative: rhonchi, wheezing - Cardiovascular Rhythm: other (tachycardiac) Heart Sounds: Present: S1 & S2. Absent: systolic murmur - Extremities Extremities: no ischemia - Abdominal General gastrointestinal: soft, non-tender, non-distended, normal bowel sounds - Integumentary Integumentary: Present: warm, pale. Absent: jaundice, rash - Psychiatric Psychiatric: other (confused) - Neurologic Neurologic: moves all extremities Results - Labs CBC & Chem 7: 12/14/16 03:35 12/14/16 03:35 Labs: Laboratory Last Values WBC 5.5 K/mm3 (4.5-11.0) 12/14/16 03:35 RBC 3.42 M/mm3 (3.65-5.03) L 12/14/16 03:35 Hgb 10.5 gm/dl (10.1-14.3) 12/14/16 03:35 Hct 31.5 % (30.3-42.9) 12/14/16 03:35 MCV 92 fl (79-97) 12/14/16 03:35 MCH 31 pg (28-32) 12/14/16 03:35 MCHC 33 % (30-34) 12/14/16 03:35 RDW 14.7 % (13.2-15.2) 12/14/16 03:35 Plt Count 86 K/mm3 (140-440) L 12/14/16 03:35 Lymph % (Auto) 6.1 % (13.4-35.0) L 12/14/16 03:35 [place] % (Auto) 5.6 % (0.0-7.3) 12/14/16 03:35 Eos % (Auto) 0.9 % (0.0-4.3) 12/14/16 03:35 Baso % (Auto) 0.1 % (0.0-1.8) 12/14/16 03:35 Lymph # 0.3 K/mm3 (1.2-5.4) L 12/14/16 03:35 [place] # 0.3 K/mm3 (0.0-0.8) 12/14/16 03:35 Eos # 0.0 K/mm3 (0.0-0.4) 12/14/16 03:35 Baso # 0.0 K/mm3 (0.0-0.1) 12/14/16 03:35 Seg Neutrophils % 87.3 % (40.0-70.0) H 12/14/16 03:35 Seg Neutrophils # 4.8 K/mm3 (1.8-7.7) 12/14/16 03:35 PT 14.0 Sec. (12.2-14.9) 12/11/16 23:50 INR 1.09 (0.87-1.13) 12/11/16 23:50 APTT 27.6 Sec. (24.2-36.6) 12/11/16 23:50 Thrombin Time 16.6 Sec. (15.1-19.6) 12/11/16 23:50 Sodium 133 mmol/L (137-145) L 12/14/16 03:35 Potassium 5.1 mmol/L (3.6-5.0) H 12/14/16 03:35 Chloride 96.2 mmol/L (98-107) L 12/14/16 03:35 Carbon Dioxide 17 mmol/L (22-30) L 12/14/16 03:35 Anion Gap 25 mmol/L 12/14/16 03:35 BUN 63 mg/dL (7-17) H 12/14/16 03:35 Creatinine 4.2 mg/dL (0.7-1.2) H 12/14/16 03:35 Estimated GFR 11 ml/min 12/14/16 03:35 BUN/Creatinine Ratio 15.00 % 12/14/16 03:35 Glucose 136 mg/dL (65-100) H 12/14/16 03:35 POC Glucose 152 (70-105) H 12/14/16 08:32 Lactic Acid 2.90 mmol/L (0.7-2.0) H* 12/12/16 19:51 Calcium 8.1 mg/dL (8.4-10.2) L 12/14/16 03:35 Phosphorus 4.40 mg/dL (2.5-4.5) D 12/14/16 03:35 Magnesium 1.30 mg/dL (1.7-2.3) L 12/14/16 03:35 Total Bilirubin 0.30 mg/dL (0.1-1.2) 12/13/16 03:39 AST 25 units/L (5-40) 12/13/16 03:39 ALT 23 units/L (7-56) 12/13/16 03:39 Alkaline Phosphatase 83 units/L (35-129) 12/13/16 03:39 Troponin T < 0.010 ng/mL (0.00-0.029) 12/11/16 23:50 Total Protein 6.8 g/dL (6.3-8.2) 12/13/16 03:39 Albumin 2.6 g/dL (3.9-5) L 12/13/16 03:39 Albumin/Globulin Ratio 0.6 % 12/13/16 03:39 Triglycerides 166 mg/dL (2-149) H 12/13/16 03:39 Cholesterol 66 mg/dL (50-199) 12/13/16 03:39 LDL Cholesterol Direct 24 mg/dL (50-130) L 12/13/16 03:39 HDL Cholesterol 9 mg/dL (40-59) L 12/13/16 03:39 Cholesterol/HDL Ratio 7.33 % 12/13/16 03:39 TSH 2.640 mlU/mL (0.270-4.200) 12/12/16 15:23 Urine Color Yellow (Yellow) 12/12/16 21:30 Urine Turbidity Turbid (Clear) 12/12/16 21:30 Urine pH 5.0 (5.0-7.0) 12/12/16 21:30 Ur Specific [place] 1.015 (1.003-1.030) 12/12/16 21:30 Urine Protein 100 mg/dl mg/dL (Negative) 12/12/16 21:30 Urine Glucose (UA) Neg mg/dL (Negative) 12/12/16 21:30 Urine Ketones Neg mg/dL (Negative) 12/12/16 21:30 Urine Blood Lg (Negative) 12/12/16 21:30 Urine Nitrite Neg (Negative) 12/12/16 21:30 Urine Bilirubin Neg (Negative) 12/12/16 21:30 Urine Urobilinogen < 2.0 mg/dL (<2.0) 12/12/16 21:30 Ur Leukocyte Esterase Lg (Negative) 12/12/16 21:30 Urine WBC (Auto) > 182.0 /HPF (0.0-6.0) H 12/12/16 21:30 Urine RBC (Auto) 62.0 /HPF (0.0-6.0) 12/12/16 21:30 U Epithel Cells (Auto) 7.0 /HPF (0-13.0) 12/12/16 21:30 Urine Bacteria (Auto) 4+ /HPF (Negative) 12/12/16 21:30 Urine WBC Clumps 3+ /HPF 12/12/16 21:30 Calcium Oxalate Crystal 3+ 12/12/16 21:30 Urine Opiates Screen Presumptive negative 12/12/16 21:30 Urine Methadone Screen Presumptive negative 12/12/16 21:30 Ur Barbiturates Screen Presumptive negative 12/12/16 21:30 Ur Phencyclidine Scrn Presumptive negative 12/12/16 21:30 Ur Amphetamines Screen Presumptive negative 12/12/16 21:30 U Benzodiazepines Scrn Presumptive negative 12/12/16 21:30 Urine Cocaine Screen Presumptive negative 12/12/16 21:30 U Marijuana (THC) Screen Presumptive negative 12/12/16 21:30 Drugs of Abuse Note Disclamer 12/12/16 21:30
[2016-12-14] MEDS ORDERED: LEVAQUIN 750MG/150ML 750 MG/150 ML BAG IV SCH (13:00)
[2016-12-14] MEDS ORDERED: KIONEX PR ONE (13:30)
[2016-12-14] MEDS ORDERED: NACL 0.9% 1000 ML 2,000 ML IV ONE (13:30)
[2016-12-14] MEDS ORDERED: MAGNESIUM SULFATE 1 GM in NACL 0.9% 50 ML IV ONE (13:30)
[2016-12-14] MEDS ORDERED: LEVAQUIN 750MG/150ML 750 MG/150 ML BAG IV ONE (14:00)
--- NOTE | 2016-12-14 14:21 | Progress Note ---
Assessment and Plan 1. TAYA likely 2/2 prerenal azotemia/ATN. Underlying CKD ? baseline unavailable 2. Dehydration 3. Essential HTN 4. Type II Diabetes 5. Toxic/metabolic encephalopathy 6. Urinary tract infection/sepsis 7. Mild hyperkalemia 8. AG metabolic acidosis/lactic acidosis Plan: CR continues to get worse Renal U.S reviewed. No hydronephrosis seen. Requested serologies including ANCAs, antiGBM, RYLAN panel, complements and SPEP Will consider renal biopsy/initiating dialysis if renal function continues to get worse. Continue antibiotics/f/u on urine culture Strict I/Os Medical management for hyperkalemia Discussed with family Subjective Date of service: 12/14/16 Interval history: Sleepy, confused at bedside Objective - Vital Signs Vital signs: Vital Signs - 12hr 12/14/16 12/14/16 04:00 07:40 Temperature 98.6 F 97.5 F L Pulse Rate 118 H 106 H Respiratory 18 24 Rate Blood Pressure 131/79 122/72 O2 Sat by Pulse 97 94 Oximetry - Lab 12/14/16 03:35 12/14/16 03:35 Most recent lab results Calcium 8.1 mg/dL (8.4-10.2) L 12/14/16 03:35 Phosphorus 4.40 mg/dL (2.5-4.5) D 12/14/16 03:35 Magnesium 1.30 mg/dL (1.7-2.3) L 12/14/16 03:35
[2016-12-14] MEDS: HEPARIN SUB-Q SCH ×2 (15:22→21:51)
[2016-12-14] MEDS: SODIUM BICARBONATE 50 MEQ in NACL 0.9% 1000 ML 1,000 ML IV SCH (15:48)
[2016-12-14] MEDS: ZOSYN/NS 2.25 GM/50ML 2.25 GM/50 ML BAG IV SCH ×2 (17:05→23:15)
[2016-12-14] MEDS: ZOCOR PO SCH (21:51)
[2016-12-15] MEDS: ZOSYN/NS 2.25 GM/50ML 2.25 GM/50 ML BAG IV SCH ×3 (05:50→23:00)
[2016-12-15] MEDS: HEPARIN SUB-Q SCH ×3 (05:50→23:01)
[2016-12-15] MEDS: SODIUM BICARBONATE 50 MEQ in NACL 0.9% 1000 ML 1,000 ML IV SCH (05:50)
[2016-12-15 06:03] LABS: Basophils % (Auto) 0.2 % (0.0-1.8); Eosinophils % (Auto) 0.8 % (0.0-4.3); Hematocrit 31.6 % (30.3-42.9); Hemoglobin 10.4 gm/dl (10.1-14.3); Mean Corpuscular HGB Conc 33 % (30-34); Mean Corpuscular Hemoglobin 31 pg (28-32); Mean Corpuscular Volume 93 fl (79-97); Red Blood Count 3.39 M/mm3 (3.65-5.03); Red Cell Distribution Width 14.8 % (13.2-15.2); White Blood Count 4.1 K/mm3 (4.5-11.0)
[2016-12-15 06:24] LABS: BUN/Creatinine Ratio 15.8; Chloride 100.5 mmol/L (98-107); Magnesium 1.8 mg/dL (1.7-2.3); Phosphorous 6.7 mg/dL (2.5-4.5)
[2016-12-15 06:54] LABS: Platelet Count 84 K/mm3 (140-440)
[2016-12-15 08:13] LABS: ISTAT Base Excess -12; ISTAT HCO3 17.2; ISTAT PCO2 48.7 (35-45); ISTAT PH 7.156 (7.35-7.45); ISTAT PO2 102 (80-105); ISTAT SO2 96; ISTAT TCO2 19
[2016-12-15] MEDS ORDERED: KIONEX PR ONE (09:01)
[2016-12-15] MEDS ORDERED: D50W (25GM) Vial IV ONE (09:03)
[2016-12-15] MEDS ORDERED: CALCIUM GLUCONATE 1,000 MG in NACL 0.9% 100 ML IV ONE (09:03)
[2016-12-15] MEDS ORDERED: PROAIR IH ONE (09:04)
--- NOTE | 2016-12-15 09:05 | Progress Note ---
Assessment and Plan Assessment and plan: 1. Sepsis secondary to UTI Fever, tachycardia, positive UA, elevated lactic acid Urine and blood cultures positive for GNR Rocephine swithced to Zosyn and levofloxacin Continue aggressive hydration Supportive care 2. Acute respiratory failure Respiratory distress due to sepsis/acidosis/morbid obesity/SHELIA/OHS Place on Bipap 3. Acute toxic metabolic encephalopathy Secondary to sepsis/uremia/electrolytes abnormalities Treat underlying conditions 4. Acute renal failure with metabolic acidosis, uremia and hyperkalemia Continue to worsen, Cr 5, K+ 6, Hco3 15 US with no obstruction Give Kayexalate, insulin/D50, Ca 2++, Albuterol Nephrology following, most likely will need initiation of dialysis 5. Hyperkalemia See above 6. Hypomagnesemia Replaced 7. Hypertension Currently BP within normal limits and no medications Monitor 8. Diabetes BS in 100s Accu-Checks and SSI 9. Hyperlipidemia On statin 10. Hypothyroidism TSH within normal limits Continue Synthroid at current dose 11. Morbid obesity/SHELIA/OHS BiPAP 12. DVT prophylaxis Change Lovenox to heparin subcutaneous due to worsening renal function History Interval history: this morning mental status unchanged, somnolent and confused; renal function continued to worsen, she is acidotic and kyperkalemic for which is treated medically, but most likely nephrology will initiate emergent HD; also , hypoxic and in resp distress, so placed on BIPAP Hospitalist Physical - Constitutional Vitals: Temp Pulse Resp BP Pulse Ox 98.3 F 103 H 20 120/68 91 12/15/16 08:00 12/15/16 08:00 12/15/16 08:00 12/15/16 08:00 12/15/16 08:00 General appearance: Present: mild distress, obese - EENT Eyes: Present: PERRL, EOM intact - Neck Neck: Absent: enlarged thyroid, masses or JVD, carotid bruits - Respiratory Respiratory effort: labored Respiratory: bilateral: diminished, negative: rhonchi, wheezing - Cardiovascular Rhythm: other (tachycardic) Heart Sounds: Present: S1 & S2. Absent: systolic murmur - Extremities Extremities: no ischemia Extremity abnormal: edema - Abdominal General gastrointestinal: soft, non-tender, distended, hypoactive bowel sounds, other (abd obese, protuberant) - Psychiatric Psychiatric: other (somnolent, confused) - Neurologic Neurologic: moves all extremities Results - Labs CBC & Chem 7: 12/16/16 06:30 12/16/16 06:30 Labs: Laboratory Last Values WBC 4.1 K/mm3 (4.5-11.0) L 12/15/16 04:35 RBC 3.39 M/mm3 (3.65-5.03) L 12/15/16 04:35 Hgb 10.4 gm/dl (10.1-14.3) 12/15/16 04:35 Hct 31.6 % (30.3-42.9) 12/15/16 04:35 MCV 93 fl (79-97) 12/15/16 04:35 MCH 31 pg (28-32) 12/15/16 04:35 MCHC 33 % (30-34) 12/15/16 04:35 RDW 14.8 % (13.2-15.2) 12/15/16 04:35 Plt Count 84 K/mm3 (140-440) L 12/15/16 04:35 Lymph % (Auto) 8.8 % (13.4-35.0) L 12/15/16 04:35 [place] % (Auto) 6.6 % (0.0-7.3) 12/15/16 04:35 Eos % (Auto) 0.8 % (0.0-4.3) 12/15/16 04:35 Baso % (Auto) 0.2 % (0.0-1.8) 12/15/16 04:35 Lymph # 0.4 K/mm3 (1.2-5.4) L 12/15/16 04:35 [place] # 0.3 K/mm3 (0.0-0.8) 12/15/16 04:35 Eos # 0.0 K/mm3 (0.0-0.4) 12/15/16 04:35 Baso # 0.0 K/mm3 (0.0-0.1) 12/15/16 04:35 Seg Neutrophils % 83.6 % (40.0-70.0) H 12/15/16 04:35 Seg Neutrophils # 3.4 K/mm3 (1.8-7.7) 12/15/16 04:35 PT 14.0 Sec. (12.2-14.9) 12/11/16 23:50 INR 1.09 (0.87-1.13) 12/11/16 23:50 APTT 27.6 Sec. (24.2-36.6) 12/11/16 23:50 Thrombin Time 16.6 Sec. (15.1-19.6) 12/11/16 23:50 POC ABG pH 7.156 (7.35-7.45) L 12/15/16 08:13 POC ABG pCO2 48.7 (35-45) H 12/15/16 08:13 POC ABG pO2 102 (80-105) 12/15/16 08:13 POC ABG HCO3 17.2 12/15/16 08:13 POC ABG Total CO2 19 12/15/16 08:13 POC ABG O2 Sat 96 12/15/16 08:13 POC ABG Base Excess -12 12/15/16 08:13 FiO2 32 % 12/15/16 08:13 Sodium 139 mmol/L (137-145) 12/15/16 04:35 Potassium 6.0 mmol/L (3.6-5.0) H 12/15/16 04:35 Chloride 100.5 mmol/L (98-107) 12/15/16 04:35 Carbon Dioxide 15 mmol/L (22-30) L 12/15/16 04:35 Anion Gap 30 mmol/L 12/15/16 04:35 BUN 79 mg/dL (7-17) H 12/15/16 04:35 Creatinine 5.0 mg/dL (0.7-1.2) H 12/15/16 04:35 Estimated GFR 9 ml/min 12/15/16 04:35 BUN/Creatinine Ratio 15.80 % 12/15/16 04:35 Glucose 93 mg/dL (65-100) 12/15/16 04:35 POC Glucose 94 (70-105) 12/14/16 21:26 Lactic Acid 0.70 mmol/L (0.7-2.0) 12/14/16 15:25 Calcium 8.0 mg/dL (8.4-10.2) L 12/15/16 04:35 Phosphorus 6.70 mg/dL (2.5-4.5) H D 12/15/16 04:35 Magnesium 1.80 mg/dL (1.7-2.3) 12/15/16 04:35 Total Bilirubin 0.30 mg/dL (0.1-1.2) 12/13/16 03:39 AST 25 units/L (5-40) 12/13/16 03:39 ALT 23 units/L (7-56) 12/13/16 03:39 Alkaline Phosphatase 83 units/L (35-129) 12/13/16 03:39 Total Creatine Kinase 73 units/L (30-135) 12/15/16 04:35 Troponin T < 0.010 ng/mL (0.00-0.029) 12/11/16 23:50 Total Protein 6.8 g/dL (6.3-8.2) 12/13/16 03:39 Albumin 2.6 g/dL (3.9-5) L 12/13/16 03:39 Albumin/Globulin Ratio 0.6 % 12/13/16 03:39 Triglycerides 166 mg/dL (2-149) H 12/13/16 03:39 Cholesterol 66 mg/dL (50-199) 12/13/16 03:39 LDL Cholesterol Direct 24 mg/dL (50-130) L 12/13/16 03:39 HDL Cholesterol 9 mg/dL (40-59) L 12/13/16 03:39 Cholesterol/HDL Ratio 7.33 % 12/13/16 03:39 TSH 2.640 mlU/mL (0.270-4.200) 12/12/16 15:23 Urine Color Yellow (Yellow) 12/12/16 21:30 Urine Turbidity Turbid (Clear) 12/12/16 21:30 Urine pH 5.0 (5.0-7.0) 12/12/16 21:30 Ur Specific [place] 1.015 (1.003-1.030) 12/12/16 21:30 Urine Protein 100 mg/dl mg/dL (Negative) 12/12/16 21:30 Urine Glucose (UA) Neg mg/dL (Negative) 12/12/16 21:30 Urine Ketones Neg mg/dL (Negative) 12/12/16 21:30 Urine Blood Lg (Negative) 12/12/16 21:30 Urine Nitrite Neg (Negative) 12/12/16 21:30 Urine Bilirubin Neg (Negative) 12/12/16 21:30 Urine Urobilinogen < 2.0 mg/dL (<2.0) 12/12/16 21:30 Ur Leukocyte Esterase Lg (Negative) 12/12/16 21:30 Urine WBC (Auto) > 182.0 /HPF (0.0-6.0) H 12/12/16 21:30 Urine RBC (Auto) 62.0 /HPF (0.0-6.0) 12/12/16 21:30 U Epithel Cells (Auto) 7.0 /HPF (0-13.0) 12/12/16 21:30 Urine Bacteria (Auto) 4+ /HPF (Negative) 12/12/16 21:30 Urine WBC Clumps 3+ /HPF 12/12/16 21:30 Calcium Oxalate Crystal 3+ 12/12/16 21:30 Urine Opiates Screen Presumptive negative 12/12/16 21:30 Urine Methadone Screen Presumptive negative 12/12/16 21:30 Ur Barbiturates Screen Presumptive negative 12/12/16 21:30 Ur Phencyclidine Scrn Presumptive negative 12/12/16 21:30 Ur Amphetamines Screen Presumptive negative 12/12/16 21:30 U Benzodiazepines Scrn Presumptive negative 12/12/16 21:30 Urine Cocaine Screen Presumptive negative 12/12/16 21:30 U Marijuana (THC) Screen Presumptive negative 12/12/16 21:30 Drugs of Abuse Note Disclamer 12/12/16 21:30
[2016-12-15] MEDS ORDERED: PROVENTIL IH ONE (09:15)
[2016-12-15] MEDS: NOVOLOG SUB-Q SCH ×4 (09:53→22:15)
--- NOTE | 2016-12-15 10:19 | XRay Report ---
PORTABLE CHEST INDICATION: Respiratory distress. COMPARISON: 12/12/2016 FINDINGS: Portable, frontal chest radiograph again demonstrates suboptimal inspiration and exaggerated cardiomediastinal silhouette. Mild patient rotation to the left. Lung markings again crowded, though with subtle diffuse asymmetric right lung haziness with more focal 4.6 cm right mid lung hazy opacity now noted, not excluded congestive/atelectasis. EKG leads. Moderate multilevel spinal and bilateral AC joint degenerative changes. CONCLUSION: Poorer right lung aeration with mild haziness, as described. Thank you for the opportunity to participate in this patient's care.
[2016-12-15] MEDS ORDERED: NACL 0.9% 100 ML IV PRN (10:31)
--- NOTE | 2016-12-15 10:35 | Progress Note ---
Assessment and Plan 1. TAYA likely 2/2 prerenal azotemia/ATN. ? acute GN. rapidly progressive Glomerulonephritis. Underlying CKD ? baseline unavailable 2. Dehydration 3. Essential HTN 4. Type II Diabetes 5. Toxic/metabolic encephalopathy 6. Urinary tract infection/sepsis 7. Mild hyperkalemia 8. AG metabolic acidosis/lactic acidosis /uremia Plan: CR continues to get worse. She is acidotic and hyperkalemic Will need to start HD SANAM and also will need a renal biopsy to determine cause. Renal U.S reviewed. No hydronephrosis seen. Requested serologies including ANCAs, antiGBM, RYLAN panel, complements and SPEP Continue antibiotics/f/u on urine culture Strict I/Os I had a discussion with yesterday and today and he wants everything done including dialysis and renal biopsy. He understands risk and benefits. Discussed with RN Subjective Date of service: 12/15/16 Interval history: Sleepy, confused Objective - Vital Signs Vital signs: Vital Signs - 12hr 12/15/16 12/15/16 12/15/16 00:53 04:25 08:00 Temperature 98.5 F 98.5 F 98.3 F Pulse Rate 11 L 104 H 103 H Respiratory 24 24 20 Rate Blood Pressure 131/86 144/77 120/68 O2 Sat by Pulse 92 91 93 Oximetry 12/15/16 08:35 Temperature Pulse Rate 89 Respiratory 28 H Rate Blood Pressure O2 Sat by Pulse 98 Oximetry - Lab 12/15/16 04:35 12/15/16 04:35 Most recent lab results Calcium 8.0 mg/dL (8.4-10.2) L 12/15/16 04:35 Phosphorus 6.70 mg/dL (2.5-4.5) H D 12/15/16 04:35 Magnesium 1.80 mg/dL (1.7-2.3) 12/15/16 04:35
[2016-12-15] MEDS ORDERED: VERSED IV ONE ×2 (11:57→12:10)
[2016-12-15] MEDS ORDERED: SUBLIMAZE ONE (11:58)
[2016-12-15] MEDS ORDERED: SUBLIMAZE IV ONE (12:10)
[2016-12-15] MEDS ORDERED: SODIUM BICARBONATE IV ONE ×4 (12:35→14:47)
[2016-12-15] MEDS ORDERED: ADRENALIN ONE ×2 (12:35→12:45)
[2016-12-15] MEDS ORDERED: CALCIUM CHLORIDE IV ONE (12:35)
[2016-12-15] MEDS ORDERED: NACL 0.9% 1000 ML 1,000 ML ONE (14:17)
[2016-12-15] MEDS ORDERED: LEVOPHED DRIP 4 MG/NS 250 ML 4 MG/250 ML BAG IV ONE (14:21)
--- NOTE | 2016-12-15 14:22 | Event Note ---
Date: 12/15/16 Called to intubate patient in CT. Upon arrival, patient undergoing chest compressions and code in progress. Being ventilated with ambu bag. Intubation tried with Glidescope but unsuccessful. LMA placed and able to ventilate. Oxygen saturation occassionally reading 80s. Fiberoptic bronchoscope then used but unable to see anything due to blood in airway. Ventilation resumed through LMA. Surgeon was then called to do bedside tracheostomy. Dr. Thompson was able to get 7.0mm endotracheal tube placed. Patient then transferred to ICU in critical condition.
[2016-12-15] MEDS: LEVOPHED DRIP 4 MG/NS 250 ML 4 MG/250 ML BAG IV SCH ×3 (14:45→23:00)
[2016-12-15] MEDS ORDERED: NACL 0.9% 1000 ML 1,000 ML IV ONE (14:45)
--- NOTE | 2016-12-15 15:12 | Procedure Note ---
Date of procedure: 12/15/16 Pre-op diagnosis: Cardiac Arrest with shock Post-op diagnosis: same Procedure: left IJ line placed: Emergent procedure: Patient prepped and drapped for central line placement. Left IJ visualized under ultrasound guidance. Skin cleaned. Lidocaine administered and using ultrasound. Finder needled accessed vein with easy return. Wire passed and visualized in vein with ultrasound guidance. Skin adalid made and dilator passed. Using seldinger technique, catheter passed through brown port over wire. Hubbed and sutured in. No acute complications seen. Good blood return from all ports. CXR ordered and line appears to be in good position. Anesthesia: local Surgeon: ANDRES IVAN Estimated blood loss: none Pathology: none Condition: critical Disposition: ICU
--- NOTE | 2016-12-15 15:17 | Consultation ---
History of Present Illness Consult date: 12/15/16 Requesting physician: DOMINGO COOK Reason for consult: other (Cardiac Arrest) History of present illness: 56 y/o female, originally admitted with stroke like symptoms, concern for sepsis and found to have UTI. Patient was also in renal failure and was being followed by nephrology. Went for renal biopsy this am and had cardiac arrest. Pt was an extremely difficult airway so had to have an emergent cricoidotomy by ENT. Now with 7.0 in her neck. Patient is completely unresponsive and not on sedation. Past History Past Medical History: diabetes, hypertension, other (frequent falls ) Social history: other (lives with ). denies: smoking, alcohol abuse, IV drug use Family history: no significant family history Medications and Allergies Allergies Allergy/AdvReac Type Severity Reaction Status Date / Time sulfamethoxazole Allergy Unknown Verified 12/11/16 23:49 [From Bactrim] trimethoprim [From Bactrim] Allergy Unknown Verified 12/11/16 23:49 Home Medications Medication Instructions Recorded Confirmed Last Taken Type Amitriptyline [Elavil] 100 mg PO QHS 12/12/16 12/12/16 12/11/16 History Atenolol [Tenormin] 50 mg PO DAILY 12/12/16 12/12/16 12/11/16 History Gabapentin [Neurontin] 800 mg PO Q8H 12/12/16 12/12/16 12/11/16 History HYDROcodone/APAP 5-325 [[place]ayer 1 each PO Q6HR PRN 12/12/16 12/12/16 12/11/16 History 5/325] Levothyroxine [Synthroid] 100 mcg PO QAM 12/12/16 12/12/16 12/11/16 History Lisinopril [Zestril] 20 mg PO QDAY 12/12/16 12/12/16 12/11/16 History Simvastatin [Zocor TAB] 40 mg PO QHS 12/12/16 12/12/16 12/11/16 History glipiZIDE [Glucotrol] 10 mg PO BID 12/12/16 12/12/16 12/11/16 History metFORMIN [Glucophage] 1,000 mg PO BID 12/12/16 12/12/16 12/11/16 History metFORMIN [Glucophage] 500 mg PO QDAY 12/12/16 12/12/16 12/11/16 History Active Meds: Active Medications Acetaminophen (Tylenol) 650 mg PO Q4H PRN PRN Reason: Pain, Mild (1-3) Last Admin: 12/13/16 22:34 Dose: 650 mg Aspirin (Aspirin) 325 mg PO QDAY LENARD Last Admin: 12/14/16 10:19 Dose: 325 mg Bisacodyl (Dulcolax) 10 mg MI QDAY PRN PRN Reason: Constipation Dextrose (D50w (25gm)) 50 ml IV PRN PRN PRN Reason: Hypoglycemia Last Admin: 12/15/16 10:25 Dose: 50 ml Heparin Sodium (Porcine) (Heparin) 5,000 unit SUB-Q Q8HR LENARD Last Admin: 12/15/16 05:50 Dose: 5,000 unit Hydralazine HCl (Apresoline) 5 mg IV Q6H PRN PRN Reason: Keep SBP between 160-185 mm Hg Sodium Bicarbonate 50 meq/ (Sodium Chloride) 1,050 mls @ 100 mls/hr IV DIRECT LENARD Last Admin: 12/15/16 05:50 Dose: 100 mls/hr Piperacillin Sod/Tazobactam Sod (Zosyn/Ns 2.25 Gm/50ml) 2.25 gm in 50 mls @ 100 mls/hr IV Q8H LENARD PRN Reason: Protocol Last Admin: 12/15/16 05:50 Dose: 100 mls/hr Levofloxacin/Dextrose (Levaquin 500mg/100ml) 500 mg in 100 mls @ 66.667 mls/hr IV Q48H LENARD PRN Reason: Protocol Sodium Chloride (Nacl 0.9%) 100 mls @ 999 mls/hr IV DIPESH PRN PRN Reason: Hypotension Norepinephrine (Levophed Drip 4 Mg/Ns 250 Ml) 4 mg in 250 mls @ 7.5 mls/hr IV TITR LENARD; 2 MCG/MIN PRN Reason: Protocol Last Admin: 12/15/16 14:45 Dose: 5 mcg/min, 18.75 mls/hr Sodium Chloride (Nacl 0.9% 1000 Ml) 1,000 mls @ 999 mls/hr IV BOLUS ONE Stop: 12/15/16 15:45 Last Admin: 12/15/16 15:10 Dose: 999 mls/hr Insulin Aspart (Novolog) 0 units SUB-Q ACHS LENARD PRN Reason: Protocol Last Admin: 12/15/16 09:53 Dose: Not Given Magnesium Hydroxide (Milk Of Magnesia) 30 ml PO Q4H PRN PRN Reason: Constipation Ondansetron HCl (Zofran) 4 mg IV Q8H PRN PRN Reason: N/V unrelieved by Reglan Simvastatin (Zocor) 20 mg PO QHS [facility] Last Admin: 12/14/16 21:51 Dose: 20 mg Sodium Chloride (Sodium Chloride Flush Syringe 10 Ml) 10 ml IV PRN PRN PRN Reason: LINE FLUSH Review of Systems ROS unobtainable: due to mental status Physical Examination Vital signs: Vital Signs Temp Pulse Resp BP Pulse Ox 99.2 F 112 H 18 108/36 98 12/11/16 23:50 12/11/16 23:50 12/11/16 23:50 12/11/16 23:50 12/11/16 23:50 General appearance: comatose Eyes: other (eyes are covered) ENT: oropharynx dry, other (large tongue, evidence of trauma to area) Neck: supple, other (large in circumference) Effort: normal Ascultation: Bilateral: clear Cardiovascular: regular rate and rhythm Gastrointestinal: hypoactive bowel sounds, other (distended, tympanic) Integumentary: normal Extremities: anasarca unable to assess Results - Laboratory Findings CBC and BMP: 12/15/16 04:35 12/15/16 04:35 ABG POC ABG pH 7.156 (7.35-7.45) L 12/15/16 08:13 POC ABG pCO2 48.7 (35-45) H 12/15/16 08:13 POC ABG pO2 102 (80-105) 12/15/16 08:13 POC ABG HCO3 17.2 12/15/16 08:13 POC ABG Total CO2 19 12/15/16 08:13 POC ABG O2 Sat 96 12/15/16 08:13 PT/INR, D-dimer PT 14.0 Sec. (12.2-14.9) 12/11/16 23:50 INR 1.09 (0.87-1.13) 12/11/16 23:50 Abnormal lab findings: Abnormal Labs 12/12/16 12/12/16 12/12/16 08:06 12:27 15:23 WBC RBC Plt Count Lymph % (Auto) [place] % (Auto) Lymph # Seg Neutrophils % Seg Neutrophils # POC ABG pH POC ABG pCO2 Sodium Potassium Chloride Carbon Dioxide BUN Creatinine Glucose POC Glucose 299 H 281 H Lactic Acid 4.20 H* Calcium Phosphorus Magnesium Albumin Triglycerides LDL Cholesterol Direct HDL Cholesterol Urine WBC (Auto) 12/12/16 12/12/16 12/12/16 16:53 19:51 20:43 WBC RBC Plt Count Lymph % (Auto) [place] % (Auto) Lymph # Seg Neutrophils % Seg Neutrophils # POC ABG pH POC ABG pCO2 Sodium Potassium Chloride Carbon Dioxide BUN Creatinine Glucose POC Glucose 272 H 238 H Lactic Acid 2.90 H* Calcium Phosphorus Magnesium Albumin Triglycerides LDL Cholesterol Direct HDL Cholesterol Urine WBC (Auto) 12/12/16 12/13/16 12/13/16 21:30 03:39 03:39 WBC RBC Plt Count 118 L Lymph % (Auto) 7.4 L [place] % (Auto) 7.6 H Lymph # 0.7 L Seg Neutrophils % 84.7 H Seg Neutrophils # 8.4 H POC ABG pH POC ABG pCO2 Sodium 133 L Potassium Chloride 96.5 L Carbon Dioxide 18 L BUN 49 H Creatinine 3.1 H D Glucose 173 H POC Glucose Lactic Acid Calcium 8.3 L D Phosphorus Magnesium 1.20 L Albumin 2.6 L Triglycerides 166 H LDL Cholesterol Direct 24 L HDL Cholesterol 9 L Urine WBC (Auto) > 182.0 H 12/13/16 12/13/16 12/13/16 07:41 11:53 17:23 WBC RBC Plt Count Lymph % (Auto) [place] % (Auto) Lymph # Seg Neutrophils % Seg Neutrophils # POC ABG pH POC ABG pCO2 Sodium Potassium Chloride Carbon Dioxide BUN Creatinine Glucose POC Glucose 222 H 221 H 247 H Lactic Acid Calcium Phosphorus Magnesium Albumin Triglycerides LDL Cholesterol Direct HDL Cholesterol Urine WBC (Auto) 12/13/16 12/14/16 12/14/16 21:29 03:35 03:35 WBC RBC 3.42 L Plt Count 86 L Lymph % (Auto) 6.1 L [place] % (Auto) Lymph # 0.3 L Seg Neutrophils % 87.3 H Seg Neutrophils # POC ABG pH POC ABG pCO2 Sodium 133 L Potassium 5.1 H Chloride 96.2 L Carbon Dioxide 17 L BUN 63 H Creatinine 4.2 H Glucose 136 H POC Glucose 185 H Lactic Acid Calcium 8.1 L Phosphorus Magnesium 1.30 L Albumin Triglycerides LDL Cholesterol Direct HDL Cholesterol Urine WBC (Auto) 12/14/16 12/14/16 12/14/16 08:32 11:50 17:35 WBC RBC Plt Count Lymph % (Auto) [place] % (Auto) Lymph # Seg Neutrophils % Seg Neutrophils # POC ABG pH POC ABG pCO2 Sodium Potassium Chloride Carbon Dioxide BUN Creatinine Glucose POC Glucose 152 H 168 H 154 H Lactic Acid Calcium Phosphorus Magnesium Albumin Triglycerides LDL Cholesterol Direct HDL Cholesterol Urine WBC (Auto) 12/15/16 12/15/16 12/15/16 04:35 04:35 07:45 WBC 4.1 L RBC 3.39 L Plt Count 84 L Lymph % (Auto) 8.8 L [place] % (Auto) Lymph # 0.4 L Seg Neutrophils % 83.6 H Seg Neutrophils # POC ABG pH POC ABG pCO2 Sodium Potassium 6.0 H Chloride Carbon Dioxide 15 L BUN 79 H Creatinine 5.0 H Glucose POC Glucose 113 H Lactic Acid Calcium 8.0 L Phosphorus 6.70 H D Magnesium Albumin Triglycerides LDL Cholesterol Direct HDL Cholesterol Urine WBC (Auto) 12/15/16 08:13 WBC RBC Plt Count Lymph % (Auto) [place] % (Auto) Lymph # Seg Neutrophils % Seg Neutrophils # POC ABG pH 7.156 L POC ABG pCO2 48.7 H Sodium Potassium Chloride Carbon Dioxide BUN Creatinine Glucose POC Glucose Lactic Acid Calcium Phosphorus Magnesium Albumin Triglycerides LDL Cholesterol Direct HDL Cholesterol Urine WBC (Auto) - Diagnostic Findings Chest x-ray: image reviewed (left IJ in place otherwise) Assessment and Plan 56 y/o female with acute respiratory failure secondary to cardiac arrest, acute renal failure now requiring HD and encephalopathy post arrest. 1. Will need surgical transformation of ET tube to trach at some point 2. Repeat ABG 3. Stat labs including CMP, CBC, Coags and Lactic acid 4. Continue abx therapy for UTI and sepsis 5. No sedation 6. Vasopressor therapy to maintain maps >65 7. Follow up renal recs, per orders HD to happen today once catheter placed 8. Needs art line CCT 31 minutes.
[2016-12-15 15:24] LABS: ISTAT Base Excess -10; ISTAT PCO2 43.2 (35-45); ISTAT PH 7.228 (7.35-7.45); ISTAT PO2 232 (80-105); ISTAT SO2 100; ISTAT TCO2 19
--- NOTE | 2016-12-15 15:43 | Event Note ---
Date: 12/15/16 Was called to a CODE BLUE for a patient in CT scanner. Arrived to see patient apneic and blue. Patient initially had no pulse. CPR initiated on my arrival. Respiratory initiated bagging the patient immediately on arrival and her color seemed to improve. Given her morbid obesity she was very difficult to bag and required 2 handed technique with 2 operators. Attempted intubation with Kris 4.0 blade without success. Patient was given multiple rounds of epinephrine. She had multiple episodes pulseless electrical activity. Second attempt at intubation made with a video laryngoscopy. Cords were visualized but unable to pass tube or bougie. Bagging continued to be a respiratory. Her oxygen saturations remained in the high 70s to mid 80s. Anesthesia was contacted and attempted to intubate this orotracheally and nasotracheally without success. LMA was placed in sats remained in the 70s to 80s. At this point decision was made to proceed with surgical airway. Given that this patient was morbidly obese with a short neck and she was ventilating marginally well I felt that it would be better to proceed with surgical airway under ENT guidance. ENT arrived and with surgical help was able to place a 7.0 ET tube the patient's trachea. Intermittent CPR was given throughout the code. She is transported to the ICU with a blood pressure of 120/70 and oxygen saturation of 95%. Portions of this chart were dictated with dictation software. There may be dictation errors contained within this note.
[2016-12-15 15:48] LABS: Basophils % (Auto) 0.2 % (0.0-1.8); Eosinophils % (Auto) 0.5 % (0.0-4.3); Hematocrit 29.8 % (30.3-42.9); Hemoglobin 9.6 gm/dl (10.1-14.3); Mean Corpuscular HGB Conc 32 % (30-34); Mean Corpuscular Hemoglobin 30 pg (28-32); Mean Corpuscular Volume 93 fl (79-97); Platelet Count 108 K/mm3 (140-440); Red Blood Count 3.19 M/mm3 (3.65-5.03); White Blood Count 5.5 K/mm3 (4.5-11.0)
[2016-12-15 15:59] LABS: INR 1.31 (0.87-1.13)
[2016-12-15 16:04] LABS: Albumin 2.3 g/dL (3.9-5); Albumin/Globulin Ratio 0.6 %; BUN/Creatinine Ratio 17.34; Bilirubin,Total 0.3 mg/dL (0.1-1.2); Calcium 8.2 mg/dL (8.4-10.2); Chloride 101.5 mmol/L (98-107); Total Protein 6.3 g/dL (6.3-8.2)
--- NOTE | 2016-12-15 16:16 | Event Note ---
Date: 12/15/16 Asked early this am to Eval for Vas cath. Pt with AMS, discussed the proposed procedure with her , who agreed. R,B, and A explained in detail. Pt was subsequently sent down for CTG Kidney bx. Devonte Sapp called. Pt unable to be intubated, and trach placed. Vas Cath which was scheduled to follow in the laboratory director has since been cx'd. If pt is to dialyzed today will place VC at the bedside in the ICU.
--- NOTE | 2016-12-15 17:01 | Operative Report ---
Operative Report Operative Report: EXAM: ULTRASOUND GUIDED PLACEMENT OF VAS-CATH CLINICAL INDICATION: PATIENT WITH ACUTE RENAL FAILURE REQUIRING EMERGENT DIALYSIS ACCESS DATE: PROCEDURE: Following an explanation of the risks, benefits and alternatives; written informed consent was obtained. The patient was obtunded from her recent code and the procedure was performed at bedside in the ICU. Initial ultrasound evaluation of the right groin demonstrated a patent right common femoral vein. The right groin was prepped and draped in the usual sterile fashion. 1% lidocaine was used for anesthesia. Under ultrasound guidance, the right common femoral vein was cannulated with a 7 cm 18-gauge needle. A 0.035 guidewire was advanced centrally easily. The needle was removed. Following serial dilation, a 30 cm pigtail dialysis catheter was placed over the guidewire and advanced centrally easily. Nonpulsatile blood return from all 3 ports. The catheter was flushed with sterile saline. The catheter was securely fasten the skin surface using 2-0 Ethilon suture and a sterile dressing applied. The patient tolerated the procedure well. There were no immediate post procedure complications. IMPRESSION: 1) Ultrasound-guided placement of Vas-Cath via the right common femoral vein
[2016-12-15] MEDS ORDERED: NACL 0.9% 500 ML 500 ML ONE (17:08)
[2016-12-15] MEDS: ASPIRIN PO SCH (18:29)
[2016-12-15] MEDS: HEPARIN IV PRN (20:39)
--- NOTE | 2016-12-15 23:24 | Operative Report ---
INDICATION FOR SURGERY: Cardiorespiratory arrest with inability to intubate the patient in the CT suite where the patient arrested and code was called, but the anesthesia service was unable to intubate the patient and an urgent request for tracheotomy or cricothyroidotomy was placed. PROCEDURE: Urgent cricothyroidotomy. SURGEON: Nat Thompson MD ANESTHESIA: There was no anesthesia administered, although the patient was bagged by the anesthesia service via facial mask with a very poor delivery of the oxygen to the patient's lungs, who arrested. DESCRIPTION OF PROCEDURE: The patient was in the CT suite area where she arrested. Anesthesia service was called, but their attempt to intubate the patient was not successful. Multiple attempts were performed and the patient coded and cardiorespiratory resuscitation was initiated. A urgent call for ear, nose, and throat physician in the hospital was placed and I happened to be in PACU when the nurse in the PACU told me that I was needed stat in the CT suite. It was approximately 1:20 or 1:25 in the afternoon. I rushed to the CT suite where I found the bog worker trying to ventilate the patient via facial mask and then one of the nurses was administering the chest compressions. The nursing staff was there with instruments ready for tracheotomy and I placed quickly the gloves on the hands, a facial mask was placed prior to that, headlight was placed and requested that the chest compressions stopped at that point and aimed for a quick approach to the airway. The patient was somewhat obese, a 15 blade was requested and a vertical skin incision was made in the proximal length of at least 4-5 cm over the transition between the larynx and trachea, although with the palpation and the patient being in the suboptimal position on a stretcher, it was not immediately clear where the anatomy was located. After the incision was made through the skin and subcutaneous tissue as well as fat, it was possible with the left index finger to palpate the cricoid as well as the thyroid cartilage as well as the membrane between and using the hemostat, I got even closer to the cricothyroid membrane. I was completely sure that the left index finger was on the cricothyroid membrane, the 15 blade was requested again and a horizontal incision was made. Agriculture Worker was suctioning some blood with a Yankauer suction, but the bleeding was not excessive and as soon as the cricothyroid membrane was incised, I requested again a larger hemostat, gently opened the space between the cricoid cartilage and thyroid cartilage, requested an endotracheal tube and was given, I believe it was a 6.5 endotracheal tube with the cuff that I inserted and then the cuff was inflated and ventilation continued through the endotracheal tube. Once of the assistant brand manager listened to both sides of the lungs and was able to hear breath sounds on the right side, but not on the left side, so we pulled the tube somewhat out until the breath sounds were heard over the left lung as well. At this point, again with help of the assistant brand manager, the wound was examined and a few bleeding areas that obviously bleeding primarily at the level of the cricothyroid membrane were cauterized with the Bovie cautery and the rest of the bleeding was just essentially minimal tissue oozing and I used approximately 20-24 inches of 1% iodoform gauze and packed into the wounds around the endotracheal tube. After that, a 2-0 silk suture was placed inferiorly, the skin incision to shorten the total length of the incision and one single mattress suture was placed reducing the total opening to some 3-3.5 cm. With this, my procedure was completed and the staff was supposed to request a portable chest x-ray to confirm the position of the tip of the endotracheal tube. Further on, I am recommending either extubation or if the patient will require a longer intubation than conversion to a formal tracheotomy in the operating room under general anesthesia, so that the patient khan not develop subglottic stenosis. JOB# [id number] VERNON/NICOLE
[2016-12-16] MEDS ORDERED: ISOPTO TEARS 0.5% OU PRN (02:18)
[2016-12-16] MEDS: ZOCOR PO SCH ×2 (04:21→21:19)
[2016-12-16 04:59] LABS: ISTAT Base Excess -1; ISTAT HCO3 23.8; ISTAT PCO2 35.8 (35-45); ISTAT PO2 143 (80-105); ISTAT SO2 99; ISTAT TCO2 25
[2016-12-16] MEDS: HEPARIN SUB-Q SCH ×3 (05:25→21:19)
[2016-12-16] MEDS: ZOSYN/NS 2.25 GM/50ML 2.25 GM/50 ML BAG IV SCH (05:26)
[2016-12-16] MEDS: LEVOPHED DRIP 4 MG/NS 250 ML 4 MG/250 ML BAG IV SCH (05:39)
[2016-12-16 07:34] LABS: Basophils % (Auto) 0.2 % (0.0-1.8); Eosinophils % (Auto) 0.5 % (0.0-4.3); Hematocrit 29.8 % (30.3-42.9); Hemoglobin 9.6 gm/dl (10.1-14.3); Mean Corpuscular HGB Conc 32 % (30-34); Mean Corpuscular Hemoglobin 30 pg (28-32); Mean Corpuscular Volume 92 fl (79-97); Platelet Count 110 K/mm3 (140-440); Red Blood Count 3.23 M/mm3 (3.65-5.03); Red Cell Distribution Width 14.3 % (13.2-15.2)
[2016-12-16 07:46] LABS: INR 1.45 (0.87-1.13)
[2016-12-16 07:58] LABS: Albumin 2.3 g/dL (3.9-5); Albumin/Globulin Ratio 0.6 %; BUN/Creatinine Ratio 15.83; Bilirubin,Total 0.3 mg/dL (0.1-1.2); Calcium 8.1 mg/dL (8.4-10.2); Chloride 99.8 mmol/L (98-107); Magnesium 1.6 mg/dL (1.7-2.3); Phosphorous 4.9 mg/dL (2.5-4.5); Total Protein 6.4 g/dL (6.3-8.2)
[2016-12-16] MEDS: NOVOLOG SUB-Q SCH ×3 (08:37→18:29)
--- NOTE | 2016-12-16 09:32 | Progress Note ---
Assessment and Plan 56 y/o female with acute respiratory failure secondary to cardiac arrest, acute renal failure now requiring HD and encephalopathy post arrest. 1. Will need surgical transformation of ET tube to trach at some point, will need to consult ENT that performed the emergent trach 2. Continue no sedation. 3. Follow up renal recs: May need HD again today. 4. Continue abx therapy for UTI and sepsis, zosyn added 5. Vasopressor therapy to maintain maps >65 6. Consulted Neurology CCT 31 minutes. Subjective Date of service: 12/16/16 Interval history: No acute events. Had HD on yesterday. Tolerated with 1 liter removal. Still remains on no sedation. at bedside. Down to 40% FiO2. Levo at 5 with a map of 83 Objective Vital Signs - 12hr 12/15/16 12/15/16 12/15/16 21:20 21:30 21:40 Temperature Pulse Rate 98 H 85 78 Pulse Rate [ From Monitor] Pulse Rate [ Left Femoral] Pulse Rate [ Right Femoral] Respiratory 21 20 20 Rate Blood Pressure 161/88 161/88 161/88 O2 Sat by Pulse 98 98 99 Oximetry 12/15/16 12/15/16 12/15/16 21:50 22:00 22:10 Temperature Pulse Rate 89 88 89 Pulse Rate [ From Monitor] Pulse Rate [ Left Femoral] Pulse Rate [ Right Femoral] Respiratory 19 18 19 Rate Blood Pressure 161/88 161/88 141/80 O2 Sat by Pulse 98 99 99 Oximetry 12/15/16 12/15/16 12/15/16 22:20 22:30 22:40 Temperature Pulse Rate 103 H 85 87 Pulse Rate [ From Monitor] Pulse Rate [ Left Femoral] Pulse Rate [ Right Femoral] Respiratory 20 20 20 Rate Blood Pressure 141/80 141/80 141/80 O2 Sat by Pulse 99 98 98 Oximetry 12/15/16 12/15/16 12/15/16 22:50 23:00 23:10 Temperature Pulse Rate 87 91 H 101 H Pulse Rate [ From Monitor] Pulse Rate [ Left Femoral] Pulse Rate [ Right Femoral] Respiratory 20 20 20 Rate Blood Pressure 141/80 141/80 127/79 O2 Sat by Pulse 99 99 99 Oximetry 12/15/16 12/15/16 12/15/16 23:17 23:20 23:30 Temperature 99.4 F Pulse Rate 93 H 88 Pulse Rate [ 92 H From Monitor] Pulse Rate [ 92 H Left Femoral] Pulse Rate [ 92 H Right Femoral] Respiratory 20 21 20 Rate Blood Pressure 127/79 127/79 O2 Sat by Pulse 0 L 99 99 Oximetry 12/15/16 12/15/16 12/15/16 23:35 23:40 23:50 Temperature Pulse Rate 84 98 H 86 Pulse Rate [ From Monitor] Pulse Rate [ Left Femoral] Pulse Rate [ Right Femoral] Respiratory 19 19 Rate Blood Pressure 127/79 127/79 O2 Sat by Pulse 99 99 Oximetry 12/16/16 12/16/16 12/16/16 00:00 00:10 00:20 Temperature Pulse Rate 91 H 80 92 H Pulse Rate [ From Monitor] Pulse Rate [ Left Femoral] Pulse Rate [ Right Femoral] Respiratory 21 20 20 Rate Blood Pressure 127/79 152/95 152/95 O2 Sat by Pulse 98 98 98 Oximetry 12/16/16 12/16/16 12/16/16 00:30 00:40 00:50 Temperature Pulse Rate 85 95 H 83 Pulse Rate [ From Monitor] Pulse Rate [ Left Femoral] Pulse Rate [ Right Femoral] Respiratory 20 20 20 Rate Blood Pressure 152/95 152/95 152/95 O2 Sat by Pulse 98 98 98 Oximetry 12/16/16 12/16/16 12/16/16 01:00 01:10 01:21 Temperature Pulse Rate 94 H 83 82 Pulse Rate [ From Monitor] Pulse Rate [ Left Femoral] Pulse Rate [ Right Femoral] Respiratory 20 20 20 Rate Blood Pressure 159/102 159/102 159/102 O2 Sat by Pulse 98 98 Oximetry 12/16/16 12/16/16 12/16/16 01:31 01:41 01:51 Temperature Pulse Rate 76 96 H 85 Pulse Rate [ From Monitor] Pulse Rate [ Left Femoral] Pulse Rate [ Right Femoral] Respiratory 20 21 20 Rate Blood Pressure 159/102 159/102 159/102 O2 Sat by Pulse 98 98 98 Oximetry 12/16/16 12/16/16 12/16/16 02:00 02:11 02:21 Temperature Pulse Rate 88 91 H 87 Pulse Rate [ From Monitor] Pulse Rate [ Left Femoral] Pulse Rate [ Right Femoral] Respiratory 21 20 19 Rate Blood Pressure 140/85 140/85 159/102 O2 Sat by Pulse 97 98 98 Oximetry 12/16/16 12/16/16 12/16/16 02:31 02:41 02:51 Temperature Pulse Rate 91 H 92 H Pulse Rate [ From Monitor] Pulse Rate [ Left Femoral] Pulse Rate [ Right Femoral] Respiratory 20 22 Rate Blood Pressure 159/102 159/102 140/85 O2 Sat by Pulse 98 98 98 Oximetry 12/16/16 12/16/16 12/16/16 03:01 03:11 03:21 Temperature Pulse Rate 86 88 86 Pulse Rate [ From Monitor] Pulse Rate [ Left Femoral] Pulse Rate [ Right Femoral] Respiratory 20 20 20 Rate Blood Pressure 140/85 130/80 130/80 O2 Sat by Pulse 98 99 96 Oximetry 12/16/16 12/16/16 12/16/16 03:31 03:33 03:41 Temperature 99.1 F Pulse Rate 91 H 87 Pulse Rate [ From Monitor] Pulse Rate [ Left Femoral] Pulse Rate [ Right Femoral] Respiratory 20 20 Rate Blood Pressure 130/80 130/80 O2 Sat by Pulse 100 100 Oximetry 12/16/16 12/16/16 12/16/16 03:51 04:00 04:11 Temperature Pulse Rate 79 77 79 Pulse Rate [ 87 From Monitor] Pulse Rate [ 87 Left Femoral] Pulse Rate [ 87 Right Femoral] Respiratory 20 20 20 Rate Blood Pressure 130/80 128/77 128/77 O2 Sat by Pulse 100 99 100 Oximetry 12/16/16 12/16/16 12/16/16 04:21 04:31 04:41 Temperature Pulse Rate 80 82 87 Pulse Rate [ From Monitor] Pulse Rate [ Left Femoral] Pulse Rate [ Right Femoral] Respiratory 20 20 20 Rate Blood Pressure 130/80 130/80 130/80 O2 Sat by Pulse 100 100 100 Oximetry 12/16/16 12/16/16 12/16/16 04:51 05:00 05:11 Temperature Pulse Rate 92 H 82 89 Pulse Rate [ From Monitor] Pulse Rate [ Left Femoral] Pulse Rate [ Right Femoral] Respiratory 19 20 21 Rate Blood Pressure 130/80 125/77 125/77 O2 Sat by Pulse 100 98 99 Oximetry 12/16/16 12/16/16 12/16/16 05:21 05:31 05:41 Temperature Pulse Rate 82 86 92 H Pulse Rate [ From Monitor] Pulse Rate [ Left Femoral] Pulse Rate [ Right Femoral] Respiratory 20 20 20 Rate Blood Pressure 125/77 125/77 125/77 O2 Sat by Pulse 99 99 99 Oximetry 12/16/16 12/16/1612/16/17 05:51 06:00 06:11 Temperature Pulse Rate 84 92 H 92 H Pulse Rate [ From Monitor] Pulse Rate [ Left Femoral] Pulse Rate [ Right Femoral] Respiratory 20 21 20 Rate Blood Pressure 125/77 130/78 130/78 O2 Sat by Pulse 99 98 98 Oximetry 12/16/16 12/16/16 12/16/16 06:21 06:31 06:41 Temperature Pulse Rate 91 H 80 79 Pulse Rate [ From Monitor] Pulse Rate [ Left Femoral] Pulse Rate [ Right Femoral] Respiratory 19 20 20 Rate Blood Pressure 130/78 130/78 130/78 O2 Sat by Pulse 99 98 99 Oximetry 12/16/16 12/16/16 12/16/16 06:51 07:00 07:11 Temperature Pulse Rate 90 92 H 82 Pulse Rate [ From Monitor] Pulse Rate [ Left Femoral] Pulse Rate [ Right Femoral] Respiratory 15 19 21 Rate Blood Pressure 130/78 130/75 130/75 O2 Sat by Pulse 99 98 98 Oximetry 12/16/16 12/16/16 12/16/16 07:21 07:31 07:41 Temperature Pulse Rate 88 92 H 88 Pulse Rate [ From Monitor] Pulse Rate [ Left Femoral] Pulse Rate [ Right Femoral] Respiratory 21 22 20 Rate Blood Pressure 130/75 130/75 130/75 O2 Sat by Pulse 98 98 98 Oximetry 12/16/16 12/16/16 12/16/16 07:51 07:52 08:00 Temperature 99.1 F Pulse Rate 87 92 H 90 Pulse Rate [ 86 From Monitor] Pulse Rate [ Left Femoral] Pulse Rate [ Right Femoral] Respiratory 20 20 Rate Blood Pressure 130/75 130/75 127/71 O2 Sat by Pulse 98 98 98 Oximetry Constitutional: comatose Eyes: other (eyes are covered) ENT: oropharynx dry, other (large tongue, evidence of trauma to area) Neck: supple, other (large in circumference) Effort: normal Ascultation: Bilateral: clear Cardiovascular: regular rate and rhythm Gastrointestinal: hypoactive bowel sounds, other (distended, tympanic) Integumentary: normal Extremities: anasarca Neurologic: unable to assess CBC and BMP: 12/16/16 06:30 12/16/16 06:30 ABG, PT/INR, D-dimer: ABG POC ABG pH 7.430 (7.35-7.45) 12/16/16 04:58 POC ABG pCO2 35.8 (35-45) 12/16/16 04:58 POC ABG pO2 143 (80-105) H 12/16/16 04:58 POC ABG HCO3 23.8 12/16/16 04:58 POC ABG Total CO2 25 12/16/16 04:58 POC ABG O2 Sat 99 12/16/16 04:58 PT/INR, D-dimer PT 17.6 Sec. (12.2-14.9) H 12/16/16 06:30 INR 1.45 (0.87-1.13) H 12/16/16 06:30 Abnormal lab findings: Abnormal Labs 12/12/16 12/12/16 12/12/16 08:06 12:27 15:23 WBC RBC Hgb Hct Plt Count Lymph % (Auto) Yates % (Auto) Lymph # Seg Neutrophils % Seg Neutrophils # PT INR POC ABG pH POC ABG pCO2 POC ABG pO2 Sodium Potassium Chloride Carbon Dioxide BUN Creatinine Glucose POC Glucose 299 H 281 H Lactic Acid 4.20 H* Calcium Phosphorus Magnesium AST Alkaline Phosphatase Albumin Triglycerides LDL Cholesterol Direct HDL Cholesterol Urine WBC (Auto) 12/12/16 12/12/16 12/12/16 16:53 19:51 20:43 WBC RBC Hgb Hct Plt Count Lymph % (Auto) Yates % (Auto) Lymph # Seg Neutrophils % Seg Neutrophils # PT INR POC ABG pH POC ABG pCO2 POC ABG pO2 Sodium Potassium Chloride Carbon Dioxide BUN Creatinine Glucose POC Glucose 272 H 238 H Lactic Acid 2.90 H* Calcium Phosphorus Magnesium AST Alkaline Phosphatase Albumin Triglycerides LDL Cholesterol Direct HDL Cholesterol Urine WBC (Auto) 12/12/16 12/13/16 12/13/16 21:30 03:39 03:39 WBC RBC Hgb Hct Plt Count 118 L Lymph % (Auto) 7.4 L Yates % (Auto) 7.6 H Lymph # 0.7 L Seg Neutrophils % 84.7 H Seg Neutrophils # 8.4 H PT INR POC ABG pH POC ABG pCO2 POC ABG pO2 Sodium 133 L Potassium Chloride 96.5 L Carbon Dioxide 18 L BUN 49 H Creatinine 3.1 H D Glucose 173 H POC Glucose Lactic Acid Calcium 8.3 L D Phosphorus Magnesium 1.20 L AST Alkaline Phosphatase Albumin 2.6 L Triglycerides 166 H LDL Cholesterol Direct 24 L HDL Cholesterol 9 L Urine WBC (Auto) > 182.0 H 12/13/16 12/13/16 12/13/16 07:41 11:53 17:23 WBC RBC Hgb Hct Plt Count Lymph % (Auto) Yates % (Auto) Lymph # Seg Neutrophils % Seg Neutrophils # PT INR POC ABG pH POC ABG pCO2 POC ABG pO2 Sodium Potassium Chloride Carbon Dioxide BUN Creatinine Glucose POC Glucose 222 H 221 H 247 H Lactic Acid Calcium Phosphorus Magnesium AST Alkaline Phosphatase Albumin Triglycerides LDL Cholesterol Direct HDL Cholesterol Urine WBC (Auto) 12/13/16 12/14/16 12/14/16 21:29 03:35 03:35 WBC RBC 3.42 L Hgb Hct Plt Count 86 L Lymph % (Auto) 6.1 L Yates % (Auto) Lymph # 0.3 L Seg Neutrophils % 87.3 H Seg Neutrophils # PT INR POC ABG pH POC ABG pCO2 POC ABG pO2 Sodium 133 L Potassium 5.1 H Chloride 96.2 L Carbon Dioxide 17 L BUN 63 H Creatinine 4.2 H Glucose 136 H POC Glucose 185 H Lactic Acid Calcium 8.1 L Phosphorus Magnesium 1.30 L AST Alkaline Phosphatase Albumin Triglycerides LDL Cholesterol Direct HDL Cholesterol Urine WBC (Auto) 12/14/16 12/14/16 12/14/16 08:32 11:50 17:35 WBC RBC Hgb Hct Plt Count Lymph % (Auto) Yates % (Auto) Lymph # Seg Neutrophils % Seg Neutrophils # PT INR POC ABG pH POC ABG pCO2 POC ABG pO2 Sodium Potassium Chloride Carbon Dioxide BUN Creatinine Glucose POC Glucose 152 H 168 H 154 H Lactic Acid Calcium Phosphorus Magnesium AST Alkaline Phosphatase Albumin Triglycerides LDL Cholesterol Direct HDL Cholesterol Urine WBC (Auto) 12/15/16 12/15/16 12/15/16 04:35 04:35 07:45 WBC 4.1 L RBC 3.39 L Hgb Hct Plt Count 84 L Lymph % (Auto) 8.8 L Yates % (Auto) Lymph # 0.4 L Seg Neutrophils % 83.6 H Seg Neutrophils # PT INR POC ABG pH POC ABG pCO2 POC ABG pO2 Sodium Potassium 6.0 H Chloride Carbon Dioxide 15 L BUN 79 H Creatinine 5.0 H Glucose POC Glucose 113 H Lactic Acid Calcium 8.0 L Phosphorus 6.70 H D Magnesium AST Alkaline Phosphatase Albumin Triglycerides LDL Cholesterol Direct HDL Cholesterol Urine WBC (Auto) 12/15/16 12/15/1617 08:13 15:20 23:53 WBC RBC Hgb Hct Plt Count Lymph % (Auto) Yates % (Auto) Lymph # Seg Neutrophils % Seg Neutrophils # PT INR POC ABG pH 7.156 L 7.228 L POC ABG pCO2 48.7 H POC ABG pO2 232 H Sodium Potassium Chloride Carbon Dioxide BUN Creatinine Glucose POC Glucose 232 H Lactic Acid Calcium Phosphorus Magnesium AST Alkaline Phosphatase Albumin Triglycerides LDL Cholesterol Direct HDL Cholesterol Urine WBC (Auto) 12/15/16 12/15/16 12/15/16 Unknown Unknown Unknown WBC RBC 3.19 L Hgb 9.6 L Hct 29.8 L Plt Count 108 L Lymph % (Auto) 6.5 L Yates % (Auto) Lymph # 0.4 L Seg Neutrophils % 87.1 H Seg Neutrophils # PT 16.2 H INR 1.31 H POC ABG pH POC ABG pCO2 POC ABG pO2 Sodium Potassium Chloride Carbon Dioxide 16 L BUN 85 H Creatinine 4.9 H Glucose 205 H POC Glucose Lactic Acid Calcium 8.2 L Phosphorus Magnesium AST 77 H Alkaline Phosphatase 136 H Albumin 2.3 L Triglycerides LDL Cholesterol Direct HDL Cholesterol Urine WBC (Auto) 12/16/16 12/16/16 12/16/16 04:58 05:39 06:30 WBC 4.0 L RBC 3.23 L Hgb 9.6 L Hct 29.8 L Plt Count 110 L Lymph % (Auto) 11.3 L Yates % (Auto) Lymph # 0.5 L Seg Neutrophils % 81.2 H Seg Neutrophils # PT INR POC ABG pH POC ABG pCO2 POC ABG pO2 143 H Sodium Potassium Chloride Carbon Dioxide BUN Creatinine Glucose POC Glucose 201 H Lactic Acid Calcium Phosphorus Magnesium AST Alkaline Phosphatase Albumin Triglycerides LDL Cholesterol Direct HDL Cholesterol Urine WBC (Auto) 12/16/16 12/16/16 06:30 06:30 WBC RBC Hgb Hct Plt Count Lymph % (Auto) Yates % (Auto) Lymph # Seg Neutrophils % Seg Neutrophils # PT 17.6 H INR 1.45 H POC ABG pH POC ABG pCO2 POC ABG pO2 Sodium Potassium Chloride Carbon Dioxide 20 L BUN 57 H Creatinine 3.6 H Glucose 176 H POC Glucose Lactic Acid Calcium 8.1 L Phosphorus 4.90 H D Magnesium 1.60 L AST 46 H Alkaline Phosphatase 137 H Albumin 2.3 L Triglycerides LDL Cholesterol Direct HDL Cholesterol Urine WBC (Auto)
--- NOTE | 2016-12-16 10:04 | Vascular Lab Report ---
CAROTID DUPLEX STUDY: RIGHT PSVEDV CCA PROX:[id number] CCA DIST: 9920 ICA PROX: 7813 ICA MID: 8416 ICA DIST:[id number] ECA: 1259 VERT: 51 10 LEFT PSVEDV CCA PROX:[id number] CCA DIST:[id number] ICA PROX: 9913 ICA MID: 9723 ICA DIST: 9727 ECA: 1047 VERT: 44 13 REASON FOR EXAM: Stroke. COMMENTS ON THE RIGHT: Doppler frequency analysis is consistent with 1 to 15 percent diameter reduction of the internal carotid artery. No plaque is seen. The common carotid artery is patent. The external carotid artery is patent. The vertebral artery has antegrade flow. COMMENTS ON THE LEFT: Doppler frequency analysis is consistent with 1 to 15 percent diameter reduction of the internal carotid artery. No plaque is seen. The common carotid artery is patent. The external carotid artery is patent. The vertebral artery has antegrade flow. IMPRESSION: Normal carotid artery study.
--- NOTE | 2016-12-16 10:59 | XRay Report ---
AP CHEST at 1346 hrs: HISTORY: Endotracheal tube placement Limited portable image. Compared to the exam earlier the same day at 0926 hours. The distal tip of the endotracheal tube terminates 1.5 cm superior to the justine. There is poor pulmonary inflation with crowding of the pulmonary markings bilaterally. No consolidation, large pleural effusion or pneumothorax is identified. Borderline to mild cardiomegaly is stable.
--- NOTE | 2016-12-16 11:01 | XRay Report ---
AP CHEST at 1500 hrs: HISTORY: Central line placement The endotracheal tube remains in the same position. Left IJ venous catheter has been inserted which terminates at the cavoatrial junction. No pneumothorax. There is better aeration of both lungs since earlier today at 1346 hrs. The lungs are generally clear other than mild airspace opacity or segmental atelectasis in the right perihilar region. No consolidation or pleural effusion. Borderline to mild cardiomegaly is stable.
--- NOTE | 2016-12-16 11:01 | XRay Report ---
AP CHEST at 0202 hrs.: HISTORY: Followup respiratory failure The endotracheal tube/tracheostomy and left venous catheter remain in good position. A nasogastric tube has been inserted which is followed to the stomach. The lungs are generally clear. No pleural effusion or pneumothorax. Borderline heart size is stable. IMPRESSION: No change.
--- NOTE | 2016-12-16 11:03 | XRay Report ---
SUPINE KUB: History: Nasogastric tube placement. The nasogastric tube terminates in the distal stomach or just within the duodenal bulb. There is moderate gas within the intestinal loops but no evidence for obstruction. A right femoral dual lumen catheter terminates at the level of L4. IMPRESSION: The nasogastric tube terminates in the distal stomach or just within the duodenal bulb.
[2016-12-16] MEDS: ASPIRIN PO SCH (11:10)
--- NOTE | 2016-12-16 11:32 | Cat Scan Report ---
CT BIOPSY RENAL RIGHT HISTORY: Rapidly progressing renal failure. DESCRIPTION OF PROCEDURE: Informed consent was obtained from the patient's . He was given the opportunity to ask questions concerning the risks and benefits of this procedure. Sterile technique was utilized. 1% lidocaine for skin anesthesia. Moderate sedation was accomplished with Versed and fentanyl. Independent cardiorespiratory monitoring was performed by the R.N. Using CT guidance, a 17-gauge introducer needle was advanced to the inferior pole of the right kidney. 2 separate 18-gauge core biopsies were obtained and placed in formalin. Followup scan demonstrated no evidence for hemorrhage. After the procedure was completed and a pressure dressing was applied, the patient became hypoxic when transferring the patient from the CT table to the hospital bed. The patient's O2 sats dropped into the 30s. Throughout the examination the patient's O2 sats were in the high 90s. The patient appeared cyanotic. At this point, a code was initiated. The code team arrived promptly and CPR was started immediately. Appropriate drugs were administered by the code team. Numerous unsuccessful attempts to intubate the patient by the code team was made. Anesthesia was called and numerous attempts to intubate the patient was made by anesthesia as well without success. The difficulty of intubation the patient was likely due to the patient's body habitus and extreme anterior location of the larynx/trachea. After multiple failed attempts, it was decided to place an emergency tracheotomy which was performed by the surgeons on site. The patient was stabilized from a cardiorespiratory standpoint in the CT room but did not regain consciousness and was sent promptly to the ICU. IMPRESSION Successful CT-guided renal biopsy. After the procedure was completed, the patient coded in the CT room and was ultimately transferred to the ICU. Please see above.
--- NOTE | 2016-12-16 11:43 | Progress Note ---
Assessment and Plan 1. TAYA likely 2/2 prerenal azotemia/ATN. ? acute GN. rapidly progressive Glomerulonephritis. Underlying CKD ? baseline unavailable 2. Dehydration 3. Essential HTN 4. Type II Diabetes 5. Toxic/metabolic encephalopathy 6. Urinary tract infection/sepsis 7. Mild hyperkalemia 8. AG metabolic acidosis/lactic acidosis /uremia Plan: HD again today. Wean off Levophed after dialysis is completed. Renal U.S reviewed. No hydronephrosis seen. Continue supportive care Maintain MAP>=65 Avoid nephrotoxins Replete magnesium F/u on Neuro recommendations Discussed with family/ RN Subjective Date of service: 12/16/16 Interval history: Events reviewed. On low dose levophed. Remained unresponsive/No sedation. Family at bedside Objective - Exam Narrative Exam: General female/on ventilator/unresponsive with no sedation HEENT: swollen toungue, sluggishly reactive pupils Lungs: decreased BS, few breaths above the vent Heart: S1S2 RRR with no~murmur,~gallop or rub Abdomen: distended, BS present Ext: trace edema, no clubbing Neuro: Unresponsive to painful stimuli, Skin: Warm and dry, - Vital Signs Vital signs: Vital Signs - 12hr 12/15/16 12/16/16 12/16/16 23:50 00:00 00:10 Temperature Pulse Rate 86 91 H 80 Pulse Rate [ From Monitor] Pulse Rate [ Left Femoral] Pulse Rate [ Right Femoral] Respiratory 19 21 20 Rate Blood Pressure 127/79 127/79 152/95 O2 Sat by Pulse 99 98 98 Oximetry 12/16/16 12/16/16 12/16/16 00:20 00:30 00:40 Temperature Pulse Rate 92 H 85 95 H Pulse Rate [ From Monitor] Pulse Rate [ Left Femoral] Pulse Rate [ Right Femoral] Respiratory 20 20 20 Rate Blood Pressure 152/95 152/95 152/95 O2 Sat by Pulse 98 98 98 Oximetry 12/16/16 12/16/16 12/16/16 00:50 01:00 01:10 Temperature Pulse Rate 83 94 H 83 Pulse Rate [ From Monitor] Pulse Rate [ Left Femoral] Pulse Rate [ Right Femoral] Respiratory 20 20 20 Rate Blood Pressure 152/95 159/102 159/102 O2 Sat by Pulse 98 98 Oximetry 12/16/16 12/16/16 12/16/16 01:21 01:31 01:41 Temperature Pulse Rate 82 76 96 H Pulse Rate [ From Monitor] Pulse Rate [ Left Femoral] Pulse Rate [ Right Femoral] Respiratory 20 20 21 Rate Blood Pressure 159/102 159/102 159/102 O2 Sat by Pulse 98 98 98 Oximetry 12/16/16 12/16/16 12/16/16 01:51 02:00 02:11 Temperature Pulse Rate 85 88 91 H Pulse Rate [ From Monitor] Pulse Rate [ Left Femoral] Pulse Rate [ Right Femoral] Respiratory 20 21 20 Rate Blood Pressure 159/102 140/85 140/85 O2 Sat by Pulse 98 97 98 Oximetry 12/16/16 12/16/16 12/16/16 02:21 02:31 02:41 Temperature Pulse Rate 87 91 H 92 H Pulse Rate [ From Monitor] Pulse Rate [ Left Femoral] Pulse Rate [ Right Femoral] Respiratory 19 20 22 Rate Blood Pressure 159/102 159/102 159/102 O2 Sat by Pulse 98 98 98 Oximetry 12/16/16 12/16/16 12/16/16 02:51 03:01 03:11 Temperature Pulse Rate 86 88 Pulse Rate [ From Monitor] Pulse Rate [ Left Femoral] Pulse Rate [ Right Femoral] Respiratory 20 20 Rate Blood Pressure 140/85 140/85 130/80 O2 Sat by Pulse 98 98 99 Oximetry 12/16/16 12/16/16 12/16/16 03:21 03:31 03:33 Temperature 99.1 F Pulse Rate 86 91 H Pulse Rate [ From Monitor] Pulse Rate [ Left Femoral] Pulse Rate [ Right Femoral] Respiratory 20 20 Rate Blood Pressure 130/80 130/80 O2 Sat by Pulse 96 100 Oximetry 12/16/16 12/16/16 12/16/16 03:41 03:51 04:00 Temperature Pulse Rate 87 79 77 Pulse Rate [ 87 From Monitor] Pulse Rate [ 87 Left Femoral] Pulse Rate [ 87 Right Femoral] Respiratory 20 20 20 Rate Blood Pressure 130/80 130/80 128/77 O2 Sat by Pulse 100 100 99 Oximetry 12/16/16 12/16/16 12/16/16 04:11 04:21 04:31 Temperature Pulse Rate 79 80 82 Pulse Rate [ From Monitor] Pulse Rate [ Left Femoral] Pulse Rate [ Right Femoral] Respiratory 20 20 20 Rate Blood Pressure 128/77 130/80 130/80 O2 Sat by Pulse 100 100 100 Oximetry 12/16/16 12/16/1612/16/17 04:41 04:51 05:00 Temperature Pulse Rate 87 92 H 82 Pulse Rate [ From Monitor] Pulse Rate [ Left Femoral] Pulse Rate [ Right Femoral] Respiratory 20 19 20 Rate Blood Pressure 130/80 130/80 125/77 O2 Sat by Pulse 100 100 98 Oximetry 12/16/16 12/16/16 12/16/16 05:11 05:21 05:31 Temperature Pulse Rate 89 82 86 Pulse Rate [ From Monitor] Pulse Rate [ Left Femoral] Pulse Rate [ Right Femoral] Respiratory 21 20 20 Rate Blood Pressure 125/77 125/77 125/77 O2 Sat by Pulse 99 99 99 Oximetry 12/16/16 12/16/16 12/16/16 05:41 05:51 06:00 Temperature Pulse Rate 92 H 84 92 H Pulse Rate [ From Monitor] Pulse Rate [ Left Femoral] Pulse Rate [ Right Femoral] Respiratory 20 20 21 Rate Blood Pressure 125/77 125/77 130/78 O2 Sat by Pulse 99 99 98 Oximetry 12/16/16 12/16/16 12/16/16 06:11 06:21 06:31 Temperature Pulse Rate 92 H 91 H 80 Pulse Rate [ From Monitor] Pulse Rate [ Left Femoral] Pulse Rate [ Right Femoral] Respiratory 20 19 20 Rate Blood Pressure 130/78 130/78 130/78 O2 Sat by Pulse 98 99 98 Oximetry 12/16/16 12/16/16 12/16/16 06:41 06:51 07:00 Temperature Pulse Rate 79 90 92 H Pulse Rate [ From Monitor] Pulse Rate [ Left Femoral] Pulse Rate [ Right Femoral] Respiratory 20 15 19 Rate Blood Pressure 130/78 130/78 130/75 O2 Sat by Pulse 99 99 98 Oximetry 12/16/16 12/16/16 12/16/16 07:11 07:21 07:31 Temperature Pulse Rate 82 88 92 H Pulse Rate [ From Monitor] Pulse Rate [ Left Femoral] Pulse Rate [ Right Femoral] Respiratory 21 21 22 Rate Blood Pressure 130/75 130/75 130/75 O2 Sat by Pulse 98 98 98 Oximetry 12/16/16 12/16/16 12/16/16 07:41 07:51 07:52 Temperature Pulse Rate 88 87 92 H Pulse Rate [ From Monitor] Pulse Rate [ Left Femoral] Pulse Rate [ Right Femoral] Respiratory 20 20 Rate Blood Pressure 130/75 130/75 130/75 O2 Sat by Pulse 98 98 98 Oximetry 12/16/16 12/16/16 12/16/16 08:00 08:11 08:21 Temperature 99.1 F Pulse Rate 90 85 87 Pulse Rate [ 86 From Monitor] Pulse Rate [ Left Femoral] Pulse Rate [ Right Femoral] Respiratory 20 20 20 Rate Blood Pressure 127/71 127/71 127/71 O2 Sat by Pulse 98 98 98 Oximetry 12/16/16 12/16/16 12/16/16 08:31 08:41 08:51 Temperature Pulse Rate 80 89 82 Pulse Rate [ From Monitor] Pulse Rate [ Left Femoral] Pulse Rate [ Right Femoral] Respiratory 20 19 20 Rate Blood Pressure 127/71 127/71 127/71 O2 Sat by Pulse 98 99 98 Oximetry 12/16/16 12/16/16 12/16/16 09:00 09:11 09:21 Temperature Pulse Rate 87 87 79 Pulse Rate [ From Monitor] Pulse Rate [ Left Femoral] Pulse Rate [ Right Femoral] Respiratory 20 19 20 Rate Blood Pressure 122/71 122/71 122/71 O2 Sat by Pulse 97 99 99 Oximetry 12/16/16 12/16/16 12/16/16 09:31 09:41 09:51 Temperature Pulse Rate 88 88 85 Pulse Rate [ From Monitor] Pulse Rate [ Left Femoral] Pulse Rate [ Right Femoral] Respiratory 20 20 21 Rate Blood Pressure 122/71 122/71 122/71 O2 Sat by Pulse 99 99 98 Oximetry 12/16/16 12/16/16 12/16/16 10:00 10:11 10:21 Temperature Pulse Rate 90 89 87 Pulse Rate [ From Monitor] Pulse Rate [ Left Femoral] Pulse Rate [ Right Femoral] Respiratory 20 20 19 Rate Blood Pressure 128/75 128/75 128/75 O2 Sat by Pulse 98 99 99 Oximetry 12/16/16 12/16/16 12/16/16 10:31 10:41 10:51 Temperature Pulse Rate 90 80 82 Pulse Rate [ From Monitor] Pulse Rate [ Left Femoral] Pulse Rate [ Right Femoral] Respiratory 20 20 20 Rate Blood Pressure 128/75 128/75 128/75 O2 Sat by Pulse 99 99 98 Oximetry 12/16/16 11:00 Temperature Pulse Rate 89 Pulse Rate [ From Monitor] Pulse Rate [ Left Femoral] Pulse Rate [ Right Femoral] Respiratory 20 Rate Blood Pressure 133/77 O2 Sat by Pulse 99 Oximetry - Lab 12/16/16 06:30 12/16/16 06:30 Most recent lab results Calcium 8.1 mg/dL (8.4-10.2) L 12/16/16 06:30 Phosphorus 4.90 mg/dL (2.5-4.5) H D 12/16/16 06:30 Magnesium 1.60 mg/dL (1.7-2.3) L 12/16/16 06:30
[2016-12-16] MEDS ORDERED: MAGNESIUM SULFATE 2GM/50ML 2 GM/50 ML BAG IV ONE (11:57)
--- NOTE | 2016-12-16 12:32 | Progress Note ---
Assessment and Plan Assessment and plan: 1. Sepsis secondary to UTI Fever, tachycardia, positive UA, elevated lactic acid Urine and blood cultures positive for GNR Rocephine swithced to Zosyn and levofloxacin Continue aggressive hydration Supportive care 2. Acute respiratory failure S/p emergent cricoidotomy during CODE BLUE 12/15 by ENT Mechanical ventilation 3. Shock Cardiogenic/septic On vasopressors 4. Acute toxic metabolic encephalopathy + now with possible anoxic injury Secondary to sepsis/uremia/electrolytes abnormalities/prolonged CODE BLUE Treat underlying conditions 5. Acute renal failure with metabolic acidosis, uremia and hyperkalemia Status post breast cath placement 12/15 and HD initiated 6. Hyperkalemia On HD now 7. Hypomagnesemia Replace 8. Hypertension Now hypotensive, on vasopressors 9. Diabetes Accu-Checks and SSI 10. Hyperlipidemia On statin 11. Hypothyroidism TSH within normal limits Continue Synthroid at current dose 12. Morbid obesity/SHELIA/OHS Now intubated 13. DVT prophylaxis Lovenox switched to heparin subcutaneous due to worsening renal function poor prognosis CC 35 min History Interval history: unresponsive on no sedation, on pressors Hospitalist Physical - Constitutional Vitals: Temp Pulse Resp BP Pulse Ox 99.1 F 89 20 139/85 98 12/16/16 08:00 12/16/16 12:00 12/16/16 12:00 12/16/16 12:00 12/16/16 12:00 General appearance: Present: mild distress, obese - Respiratory Respiratory effort: other (intubated) Respiratory: bilateral: diminished, negative: rhonchi, wheezing - Cardiovascular Rhythm: other (tachycardic) Heart Sounds: Present: S1 & S2, systolic murmur - Extremities Extremities: no ischemia Extremity abnormal: edema - Abdominal General gastrointestinal: soft, distended, hypoactive bowel sounds, other (NGT) Results - Labs CBC & Chem 7: 12/16/16 06:30 12/16/16 06:30 Labs: Laboratory Last Values WBC 4.0 K/mm3 (4.5-11.0) L 12/16/16 06:30 RBC 3.23 M/mm3 (3.65-5.03) L 12/16/16 06:30 Hgb 9.6 gm/dl (10.1-14.3) L 12/16/16 06:30 Hct 29.8 % (30.3-42.9) L 12/16/16 06:30 MCV 92 fl (79-97) 12/16/16 06:30 MCH 30 pg (28-32) 12/16/16 06:30 MCHC 32 % (30-34) 12/16/16 06:30 RDW 14.3 % (13.2-15.2) 12/16/16 06:30 Plt Count 110 K/mm3 (140-440) L 12/16/16 06:30 Lymph % (Auto) 11.3 % (13.4-35.0) L 12/16/16 06:30 Gage % (Auto) 6.8 % (0.0-7.3) 12/16/16 06:30 Eos % (Auto) 0.5 % (0.0-4.3) 12/16/16 06:30 Baso % (Auto) 0.2 % (0.0-1.8) 12/16/16 06:30 Lymph # 0.5 K/mm3 (1.2-5.4) L 12/16/16 06:30 Gage # 0.3 K/mm3 (0.0-0.8) 12/16/16 06:30 Eos # 0.0 K/mm3 (0.0-0.4) 12/16/16 06:30 Baso # 0.0 K/mm3 (0.0-0.1) 12/16/16 06:30 Seg Neutrophils % 81.2 % (40.0-70.0) H 12/16/16 06:30 Seg Neutrophils # 3.3 K/mm3 (1.8-7.7) 12/16/16 06:30 PT 17.6 Sec. (12.2-14.9) H 12/16/16 06:30 INR 1.45 (0.87-1.13) H 12/16/16 06:30 APTT 27.6 Sec. (24.2-36.6) 12/11/16 23:50 Thrombin Time 16.6 Sec. (15.1-19.6) 12/11/16 23:50 POC ABG pH 7.430 (7.35-7.45) 12/16/16 04:58 POC ABG pCO2 35.8 (35-45) 12/16/16 04:58 POC ABG pO2 143 (80-105) H 12/16/16 04:58 POC ABG HCO3 23.8 12/16/16 04:58 POC ABG Total CO2 25 12/16/16 04:58 POC ABG O2 Sat 99 12/16/16 04:58 POC ABG Base Excess -1 12/16/16 04:58 FiO2 50 % 12/16/16 04:58 Sodium 143 mmol/L (137-145) 12/16/16 06:30 Potassium 4.0 mmol/L (3.6-5.0) 12/16/16 06:30 Chloride 99.8 mmol/L (98-107) 12/16/16 06:30 Carbon Dioxide 20 mmol/L (22-30) L 12/16/16 06:30 Anion Gap 27 mmol/L 12/16/16 06:30 BUN 57 mg/dL (7-17) H 12/16/16 06:30 Creatinine 3.6 mg/dL (0.7-1.2) H 12/16/16 06:30 Estimated GFR 13 ml/min 12/16/16 06:30 BUN/Creatinine Ratio 15.83 % 12/16/16 06:30 Glucose 176 mg/dL (65-100) H 12/16/16 06:30 POC Glucose 201 (70-105) H 12/16/16 05:39 Lactic Acid 1.80 mmol/L (0.7-2.0) 12/15/16 Unknown Calcium 8.1 mg/dL (8.4-10.2) L 12/16/16 06:30 Phosphorus 4.90 mg/dL (2.5-4.5) H D 12/16/16 06:30 Magnesium 1.60 mg/dL (1.7-2.3) L 12/16/16 06:30 Total Bilirubin 0.30 mg/dL (0.1-1.2) 12/16/16 06:30 AST 46 units/L (5-40) H 12/16/16 06:30 ALT 32 units/L (7-56) 12/16/16 06:30 Alkaline Phosphatase 137 units/L (35-129) H 12/16/16 06:30 Total Creatine Kinase 73 units/L (30-135) 12/15/16 04:35 Troponin T < 0.010 ng/mL (0.00-0.029) 12/11/16 23:50 Total Protein 6.4 g/dL (6.3-8.2) 12/16/16 06:30 Albumin 2.3 g/dL (3.9-5) L 12/16/16 06:30 Albumin/Globulin Ratio 0.6 % 12/16/16 06:30 Triglycerides 166 mg/dL (2-149) H 12/13/16 03:39 Cholesterol 66 mg/dL (50-199) 12/13/16 03:39 LDL Cholesterol Direct 24 mg/dL (50-130) L 12/13/16 03:39 HDL Cholesterol 9 mg/dL (40-59) L 12/13/16 03:39 Cholesterol/HDL Ratio 7.33 % 12/13/16 03:39 TSH 2.640 mlU/mL (0.270-4.200) 12/12/16 15:23 Urine Color Yellow (Yellow) 12/12/16 21:30 Urine Turbidity Turbid (Clear) 12/12/16 21:30 Urine pH 5.0 (5.0-7.0) 12/12/16 21:30 Ur Specific [place] 1.015 (1.003-1.030) 12/12/16 21:30 Urine Protein 100 mg/dl mg/dL (Negative) 12/12/16 21:30 Urine Glucose (UA) Neg mg/dL (Negative) 12/12/16 21:30 Urine Ketones Neg mg/dL (Negative) 12/12/16 21:30 Urine Blood Lg (Negative) 12/12/16 21:30 Urine Nitrite Neg (Negative) 12/12/16 21:30 Urine Bilirubin Neg (Negative) 12/12/16 21:30 Urine Urobilinogen < 2.0 mg/dL (<2.0) 12/12/16 21:30 Ur Leukocyte Esterase Lg (Negative) 12/12/16 21:30 Urine WBC (Auto) > 182.0 /HPF (0.0-6.0) H 12/12/16 21:30 Urine RBC (Auto) 62.0 /HPF (0.0-6.0) 12/12/16 21:30 U Epithel Cells (Auto) 7.0 /HPF (0-13.0) 12/12/16 21:30 Urine Bacteria (Auto) 4+ /HPF (Negative) 12/12/16 21:30 Urine WBC Clumps 3+ /HPF 12/12/16 21:30 Calcium Oxalate Crystal 3+ 12/12/16 21:30 Urine Opiates Screen Presumptive negative 12/12/16 21:30 Urine Methadone Screen Presumptive negative 12/12/16 21:30 Ur Barbiturates Screen Presumptive negative 12/12/16 21:30 Ur Phencyclidine Scrn Presumptive negative 12/12/16 21:30 Ur Amphetamines Screen Presumptive negative 12/12/16 21:30 U Benzodiazepines Scrn Presumptive negative 12/12/16 21:30 Urine Cocaine Screen Presumptive negative 12/12/16 21:30 U Marijuana (THC) Screen Presumptive negative 12/12/16 21:30 Drugs of Abuse Note Disclamer 12/12/16 21:30
[2016-12-16] MEDS: ROCEPHIN/NS 2 GM/100 ML 2 GM/100 ML BAG IV SCH (12:53)
[2016-12-16] MEDS ORDERED: NACL 0.9% 100 ML IV PRN (13:16)
[2016-12-16] MEDS ORDERED: LEVAQUIN 500MG/100ML 500 MG/100 ML BAG IV SCH (14:00)
--- NOTE | 2016-12-16 14:55 | Consultation ---
History of Present Illness Consult date: 12/16/16 Reason for consult: other (tracheostomy evaluation) - History of present illness History of present illness: This is a 56-year-old female who presented to the emergency room with slurred speech and altered mental status. Patient was admitted and found to have evidence of acute renal failure. She was also being evaluated for CVA. The decision was made to perform a kidney biopsy and the patient coded while in the CT scanner. She underwent an emergent cricothyroidotomy by Dr. Thompson to failure of oral intubation by both emergency room and anesthesia physicians. Currently she has a 7 elevator endotracheal tube through a cricothyroidotomy maintaining her airway. She is on 40% FiO2 and is minimally responsive. I have been asked to evaluate the patient for conversion to a stable airway in the form of a tracheostomy tube. Past History Past Medical History: diabetes, hypertension, other (frequent falls ) Social history: other (lives with ). denies: smoking, alcohol abuse, IV drug use Family history: no significant family history Medications and Allergies Allergies Allergy/AdvReac Type Severity Reaction Status Date / Time sulfamethoxazole Allergy Unknown Verified 12/11/16 23:49 [From Bactrim] trimethoprim [From Bactrim] Allergy Unknown Verified 12/11/16 23:49 Home Medications Medication Instructions Recorded Confirmed Last Taken Type Amitriptyline [Elavil] 100 mg PO QHS 12/12/16 12/12/16 12/11/16 History Atenolol [Tenormin] 50 mg PO DAILY 12/12/16 12/12/16 12/11/16 History Gabapentin [Neurontin] 800 mg PO Q8H 12/12/16 12/12/16 12/11/16 History HYDROcodone/APAP 5-325 [[place] 1 each PO Q6HR PRN 12/12/16 12/12/16 12/11/16 History 5/325] Levothyroxine [Synthroid] 100 mcg PO QAM 12/12/16 12/12/16 12/11/16 History Lisinopril [Zestril] 20 mg PO QDAY 12/12/16 12/12/16 12/11/16 History Simvastatin [Zocor TAB] 40 mg PO QHS 12/12/16 12/12/16 12/11/16 History glipiZIDE [Glucotrol] 10 mg PO BID 12/12/16 12/12/16 12/11/16 History metFORMIN [Glucophage] 1,000 mg PO BID 12/12/16 12/12/16 12/11/16 History metFORMIN [Glucophage] 500 mg PO QDAY 12/12/16 12/12/16 12/11/16 History Active Meds: Active Medications Acetaminophen (Tylenol) 650 mg PO Q4H PRN PRN Reason: Pain, Mild (1-3) Last Admin: 12/13/16 22:34 Dose: 650 mg Artificial Tears (Isopto Tears 0.5%) 2 drops OU Q4H PRN PRN Reason: Dry Eye(s) Last Admin: 12/16/16 05:25 Dose: 2 drops Aspirin (Aspirin) 325 mg PO QDAY LENARD Last Admin: 12/16/16 11:10 Dose: Not Given Bisacodyl (Dulcolax) 10 mg MI QDAY PRN PRN Reason: Constipation Dextrose (D50w (25gm)) 50 ml IV PRN PRN PRN Reason: Hypoglycemia Last Admin: 12/15/16 10:25 Dose: 50 ml Heparin Sodium (Porcine) (Heparin) 5,000 unit SUB-Q Q8HR LENARD Last Admin: 12/16/16 13:31 Dose: 5,000 unit Heparin Sodium (Porcine) (Heparin) 5,000 unit IV DIPESH PRN PRN Reason: dwell Last Admin: 12/15/16 20:39 Dose: 5,000 unit Hydralazine HCl (Apresoline) 5 mg IV Q6H PRN PRN Reason: Keep SBP between 160-185 mm Hg Sodium Chloride (Nacl 0.9%) 100 mls @ 999 mls/hr IV DIPESH PRN PRN Reason: Hypotension Norepinephrine (Levophed Drip 4 Mg/Ns 250 Ml) 4 mg in 250 mls @ 7.5 mls/hr IV TITR LENARD; 2 MCG/MIN PRN Reason: Protocol Last Titration: 12/16/16 07:00 Dose: 5 mcg/min, 18.75 mls/hr Ceftriaxone Sodium (Rocephin/Ns 2 Gm/100 Ml) 2 gm in 100 mls @ 200 mls/hr IV Q24HR LENARD Last Admin: 12/16/16 12:53 Dose: 200 mls/hr Insulin Aspart (Novolog) 0 units SUB-Q Q6HR [facility] PRN Reason: Protocol Last Admin: 12/16/16 13:29 Dose: Not Given Magnesium Hydroxide (Milk Of Magnesia) 30 ml PO Q4H PRN PRN Reason: Constipation Ondansetron HCl (Zofran) 4 mg IV Q8H PRN PRN Reason: N/V unrelieved by Reglan Simvastatin (Zocor) 20 mg PO QHS [facility] Last Admin: 12/16/16 04:21 Dose: Not Given Sodium Chloride (Sodium Chloride Flush Syringe 10 Ml) 10 ml IV PRN PRN PRN Reason: LINE FLUSH Review of Systems ROS unobtainable: due to mental status Exam Vital Signs Temp Pulse Resp BP Pulse Ox 99.2 F 112 H 18 108/36 98 12/11/16 23:50 12/11/16 23:50 12/11/16 23:50 12/11/16 23:50 12/11/16 23:50 - General physical appearance Positive: no distress - Neck Positive: trachea midline, other (short and thick. 7 mm endotracheal tube is present in the midline through a cricothyroidotomy incision) - Respiratory Positive: normal expansion, normal respiratory effort - Cardiovascular Rhythm: regular - Abdomen Abdomen: Present: soft. Absent: tender - Neurologic Neurologic: other (operative only to noxious stimuli) Results - Labs 12/16/16 06:30 12/16/16 06:30 Abnormal lab results 12/15/16 12/15/16 12/15/16 Range/Units 15:20 23:53 Unknown WBC (4.5-11.0) K/mm3 RBC 3.19 L (3.65-5.03) M/mm3 Hgb 9.6 L (10.1-14.3) gm/dl Hct 29.8 L (30.3-42.9) % Plt Count 108 L (140-440) K/mm3 Lymph % (Auto) 6.5 L (13.4-35.0) % Lymph # 0.4 L (1.2-5.4) K/mm3 Seg Neutrophils % 87.1 H (40.0-70.0) % PT (12.2-14.9) Sec. INR (0.87-1.13) POC ABG pH 7.228 L (7.35-7.45) POC ABG pO2 232 H (80-105) Carbon Dioxide (22-30) mmol/L BUN (7-17) mg/dL Creatinine (0.7-1.2) mg/dL Glucose (65-100) mg/dL POC Glucose 232 H (70-105) Calcium (8.4-10.2) mg/dL Phosphorus (2.5-4.5) mg/dL Magnesium (1.7-2.3) mg/dL AST (5-40) units/L Alkaline Phosphatase (35-129) units/L Albumin (3.9-5) g/dL 12/15/16 12/15/16 12/16/16 Range/Units Unknown Unknown 04:58 WBC (4.5-11.0) K/mm3 RBC (3.65-5.03) M/mm3 Hgb (10.1-14.3) gm/dl Hct (30.3-42.9) % Plt Count (140-440) K/mm3 Lymph % (Auto) (13.4-35.0) % Lymph # (1.2-5.4) K/mm3 Seg Neutrophils % (40.0-70.0) % PT 16.2 H (12.2-14.9) Sec. INR 1.31 H (0.87-1.13) POC ABG pH (7.35-7.45) POC ABG pO2 143 H (80-105) Carbon Dioxide 16 L (22-30) mmol/L BUN 85 H (7-17) mg/dL Creatinine 4.9 H (0.7-1.2) mg/dL Glucose 205 H (65-100) mg/dL POC Glucose (70-105) Calcium 8.2 L (8.4-10.2) mg/dL Phosphorus (2.5-4.5) mg/dL Magnesium (1.7-2.3) mg/dL AST 77 H (5-40) units/L Alkaline Phosphatase 136 H (35-129) units/L Albumin 2.3 L (3.9-5) g/dL 12/16/16 12/16/16 12/16/16 Range/Units 05:39 06:30 06:30 WBC 4.0 L (4.5-11.0) K/mm3 RBC 3.23 L (3.65-5.03) M/mm3 Hgb 9.6 L (10.1-14.3) gm/dl Hct 29.8 L (30.3-42.9) % Plt Count 110 L (140-440) K/mm3 Lymph % (Auto) 11.3 L (13.4-35.0) % Lymph # 0.5 L (1.2-5.4) K/mm3 Seg Neutrophils % 81.2 H (40.0-70.0) % PT 17.6 H (12.2-14.9) Sec. INR 1.45 H (0.87-1.13) POC ABG pH (7.35-7.45) POC ABG pO2 (80-105) Carbon Dioxide (22-30) mmol/L BUN (7-17) mg/dL Creatinine (0.7-1.2) mg/dL Glucose (65-100) mg/dL POC Glucose 201 H (70-105) Calcium (8.4-10.2) mg/dL Phosphorus (2.5-4.5) mg/dL Magnesium (1.7-2.3) mg/dL AST (5-40) units/L Alkaline Phosphatase (35-129) units/L Albumin (3.9-5) g/dL 12/16/ Range/Units 06:30 WBC (4.5-11.0) K/mm3 RBC (3.65-5.03) M/mm3 Hgb (10.1-14.3) gm/dl Hct (30.3-42.9) % Plt Count (140-440) K/mm3 Lymph % (Auto) (13.4-35.0) % Lymph # (1.2-5.4) K/mm3 Seg Neutrophils % (40.0-70.0) % PT (12.2-14.9) Sec. INR (0.87-1.13) POC ABG pH (7.35-7.45) POC ABG pO2 (80-105) Carbon Dioxide 20 L (22-30) mmol/L BUN 57 H (7-17) mg/dL Creatinine 3.6 H (0.7-1.2) mg/dL Glucose 176 H (65-100) mg/dL POC Glucose (70-105) Calcium 8.1 L (8.4-10.2) mg/dL Phosphorus 4.90 H D (2.5-4.5) mg/dL Magnesium 1.60 L (1.7-2.3) mg/dL AST 46 H (5-40) units/L Alkaline Phosphatase 137 H (35-129) units/L Albumin 2.3 L (3.9-5) g/dL Diabetes panel 12/15/16 12/16/16 Range/Units Unknown 06:30 Sodium 142 143 (137-145) mmol/L Potassium 5.0 4.0 (3.6-5.0) mmol/L Chloride 101.5 99.8 (98-107) mmol/L Carbon Dioxide 16 L 20 L (22-30) mmol/L BUN 85 H 57 H (7-17) mg/dL Creatinine 4.9 H 3.6 H (0.7-1.2) mg/dL Glucose 205 H 176 H (65-100) mg/dL Calcium 8.2 L 8.1 L (8.4-10.2) mg/dL AST 77 H 46 H (5-40) units/L ALT 36 32 (7-56) units/L Alkaline Phosphatase 136 H 137 H (35-129) units/L Total Protein 6.3 6.4 (6.3-8.2) g/dL Albumin 2.3 L 2.3 L (3.9-5) g/dL Calcium panel 12/15/16 12/16/16 Range/Units Unknown 06:30 Calcium 8.2 L 8.1 L (8.4-10.2) mg/dL Phosphorus 4.90 H D (2.5-4.5) mg/dL Albumin 2.3 L 2.3 L (3.9-5) g/dL Pituitary panel 12/15/16 12/16/16 Range/Units Unknown 06:30 Sodium 142 143 (137-145) mmol/L Potassium 5.0 4.0 (3.6-5.0) mmol/L Chloride 101.5 99.8 (98-107) mmol/L Carbon Dioxide 16 L 20 L (22-30) mmol/L BUN 85 H 57 H (7-17) mg/dL Creatinine 4.9 H 3.6 H (0.7-1.2) mg/dL Glucose 205 H 176 H (65-100) mg/dL Calcium 8.2 L 8.1 L (8.4-10.2) mg/dL Adrenal panel 12/15/16 12/16/16 Range/Units Unknown 06:30 Sodium 142 143 (137-145) mmol/L Potassium 5.0 4.0 (3.6-5.0) mmol/L Chloride 101.5 99.8 (98-107) mmol/L Carbon Dioxide 16 L 20 L (22-30) mmol/L BUN 85 H 57 H (7-17) mg/dL Creatinine 4.9 H 3.6 H (0.7-1.2) mg/dL Glucose 205 H 176 H (65-100) mg/dL Calcium 8.2 L 8.1 L (8.4-10.2) mg/dL Total Bilirubin 0.30 0.30 (0.1-1.2) mg/dL AST 77 H 46 H (5-40) units/L ALT 36 32 (7-56) units/L Alkaline Phosphatase 136 H 137 H (35-129) units/L Total Protein 6.3 6.4 (6.3-8.2) g/dL Albumin 2.3 L 2.3 L (3.9-5) g/dL Assessment and Plan 1. Acute respiratory failure status post cricothyroidotomy with a endotracheal tracheal tube through the incision. This is inadequate for long-term management of the airway and will need to be converted to a tracheostomy to. I discussed the risks and benefits of the including but not limited to bleeding, infection, injury to adjacent structures, need for additional surgery. They wished to proceed with the procedure. Written consent obtained. We'll plan for surgery as scheduled per minutes. Continue supportive care. We'll follow.
[2016-12-16 16:02] LABS: Alanine Aminotransferase 32 units/L (7-56); Albumin 2.4 g/dL (3.9-5); Albumin/Globulin Ratio 0.8 %; Alkaline Phosphatase 156 units/L (35-129); Bilirubin,Direct < 0.2 mg/dL (0-0.2); Total Protein 5.6 g/dL (6.3-8.2)
[2016-12-16] MEDS ORDERED: NACL 0.9% 1000 ML 2,000 ML ONE (16:04)
[2016-12-16] MEDS: HEPARIN IV PRN (16:04)
[2016-12-17] MEDS: NOVOLOG SUB-Q SCH ×4 (02:20→20:09)
[2016-12-17 03:47] LABS: ISTAT Base Excess 4; ISTAT HCO3 27.1; ISTAT PCO2 35.9 (35-45); ISTAT PH 7.485 (7.35-7.45); ISTAT PO2 103 (80-105); ISTAT SO2 98; ISTAT TCO2 28
[2016-12-17] MEDS: HEPARIN SUB-Q SCH ×3 (05:12→22:17)
--- NOTE | 2016-12-17 08:04 | XRay Report ---
PORTABLE CHEST INDICATION: Followup respiratory failure. COMPARISON: Yesterday. FINDINGS: Portable, frontal chest radiograph, 2:24 AM, 12/17/2016 again demonstrates hypoinflation with exaggerated cardiomediastinal silhouette. Slightly crowded markings centrally with slight increased right lung haziness, more so the upper lobe. No significant pleural effusions. Stable supporting devices, some extrinsic artifacts and few bony degenerative changes. CONCLUSION: Slight increased right lung haziness; otherwise stable. Follow up on subsequent exams as well. Thank you for the opportunity to participate in this patient's care.
--- NOTE | 2016-12-17 08:19 | History and Physical Report ---
History of Present Illness Date of examination: 12/17/16 Date of admission: 12/12/16 03:44 Chief complaint: NEUROLOGY CONSULTATION BRIEF NOTE (SEE DICTATED WORK UP) Asked to see this 56 F for evaluation of Coma following PEA arrest yesterday in CT scanner less than 24 hours ago. Hx reviewed in detail. EXAM: Positive findings: On zero sedation, she follows zero commands No response to deep nox stim of all four extremities eyes dysconjugate beneath closed lids, no EOM on [place] Maneuver Pupils both =, round, regular, 4 mm diam, and respond sluggishly to bright light stim no grimace to nox stim DTRs 2+ at biceps bilat, absent elsewhere, no response to plantar stim IMP: 1. 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 2. Metabolic encephalopathy secondary to ARF superimposed on CRF BUN/ Creat 49 /3.1, UTI - Sepsis, acidosis 3. Antecedent hx of slurring of speech and confusion, the proximal cause of her husbands bringing her to the ED, and likely secondary to 2. above. There was no evidence of acute infarct on MRI brain of 12/12, and Carotid dopplers and SILVIA were both normal except for a non-compliant LV on SILVIA. The hx of ? some weakness of her right arm at one point ??? suggests possible TIA as cause of these Sx if Hx is reliable. Neuro work up for that is complete. 4. Other medical Dxs as well documented. RECC: 1. Although neuro findings provide evidence of brain stem compromise, it is early in her post arrest course, so pursue her mgt full court press. 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 2. Please order a head CT today. 3. Go from there. Will follow. Katie Root MD 1. Past History Past Medical History: diabetes, hypertension, other (frequent falls ) Social history: other (lives with ). denies: smoking, alcohol abuse, IV drug use Family history: no significant family history Medications and Allergies Allergies Allergy/AdvReac Type Severity Reaction Status Date / Time sulfamethoxazole Allergy Unknown Verified 12/11/16 23:49 [From Bactrim] trimethoprim [From Bactrim] Allergy Unknown Verified 12/11/16 23:49 Home Medications Medication Instructions Recorded Confirmed Last Taken Type Amitriptyline [Elavil] 100 mg PO QHS 12/12/16 12/12/16 12/11/16 History Atenolol [Tenormin] 50 mg PO DAILY 12/12/16 12/12/16 12/11/16 History Gabapentin [Neurontin] 800 mg PO Q8H 12/12/16 12/12/16 12/11/16 History HYDROcodone/APAP 5-325 [[place] 1 each PO Q6HR PRN 12/12/16 12/12/16 12/11/16 History 5/325] Levothyroxine [Synthroid] 100 mcg PO QAM 12/12/16 12/12/16 12/11/16 History Lisinopril [Zestril] 20 mg PO QDAY 12/12/16 12/12/16 12/11/16 History Simvastatin [Zocor TAB] 40 mg PO QHS 12/12/16 12/12/16 12/11/16 History glipiZIDE [Glucotrol] 10 mg PO BID 12/12/16 12/12/16 12/11/16 History metFORMIN [Glucophage] 1,000 mg PO BID 12/12/16 12/12/16 12/11/16 History metFORMIN [Glucophage] 500 mg PO QDAY 12/12/16 12/12/16 12/11/16 History Active Meds: Active Medications Acetaminophen (Tylenol) 650 mg PO Q4H PRN PRN Reason: Pain, Mild (1-3) Last Admin: 12/13/16 22:34 Dose: 650 mg Artificial Tears (Isopto Tears 0.5%) 2 drops OU Q4H PRN PRN Reason: Dry Eye(s) Last Admin: 12/16/16 05:25 Dose: 2 drops Aspirin (Aspirin) 325 mg PO QDAY [facility] Last Admin: 12/16/16 11:10 Dose: Not Given Bisacodyl (Dulcolax) 10 mg RI QDAY PRN PRN Reason: Constipation Dextrose (D50w (25gm)) 50 ml IV PRN PRN PRN Reason: Hypoglycemia Last Admin: 12/15/16 10:25 Dose: 50 ml Heparin Sodium (Porcine) (Heparin) 5,000 unit SUB-Q Q8HR [facility] Last Admin: 12/17/16 05:12 Dose: 5,000 unit Heparin Sodium (Porcine) (Heparin) 5,000 unit IV DIPESH PRN PRN Reason: dwell Last Admin: 12/16/16 16:04 Dose: 5,000 unit Hydralazine HCl (Apresoline) 5 mg IV Q6H PRN PRN Reason: Keep SBP between 160-185 mm Hg Sodium Chloride (Nacl 0.9%) 100 mls @ 999 mls/hr IV DIPESH PRN PRN Reason: Hypotension Norepinephrine (Levophed Drip 4 Mg/Ns 250 Ml) 4 mg in 250 mls @ 7.5 mls/hr IV TITR LENARD; 2 MCG/MIN PRN Reason: Protocol Last Titration: 12/16/16 17:00 Dose: Infused Ceftriaxone Sodium (Rocephin/Ns 2 Gm/100 Ml) 2 gm in 100 mls @ 200 mls/hr IV Q24HR [facility] Last Admin: 12/16/16 12:53 Dose: 200 mls/hr Insulin Aspart (Novolog) 0 units SUB-Q Q6HR LENARD PRN Reason: Protocol Last Admin: 12/17/16 05:17 Dose: 3 units Magnesium Hydroxide (Milk Of Magnesia) 30 ml PO Q4H PRN PRN Reason: Constipation Ondansetron HCl (Zofran) 4 mg IV Q8H PRN PRN Reason: N/V unrelieved by Reglan Simvastatin (Zocor) 20 mg PO QHS [facility] Last Admin: 12/16/16 21:19 Dose: 20 mg Sodium Chloride (Sodium Chloride Flush Syringe 10 Ml) 10 ml IV PRN PRN PRN Reason: LINE FLUSH Physical Examination - Vital Signs Vital Signs: Vital Signs Temp Pulse Resp BP Pulse Ox 99.2 F 112 H 18 108/36 98 12/11/16 23:50 12/11/16 23:50 12/11/16 23:50 12/11/16 23:50 12/11/16 23:50 Results - Laboratory Findings CBC and BMP: 12/16/16 06:30 12/16/16 06:30 Abnormal Lab Findings: Abnormal Labs 12/12/16 12/12/16 12/12/16 08:06 12:27 15:23 WBC RBC Hgb Hct Plt Count Lymph % (Auto) [place] % (Auto) Lymph # Seg Neutrophils % Seg Neutrophils # PT INR POC ABG pH POC ABG pCO2 POC ABG pO2 Sodium Potassium Chloride Carbon Dioxide BUN Creatinine Glucose POC Glucose 299 H 281 H Lactic Acid 4.20 H* Calcium Phosphorus Magnesium AST Alkaline Phosphatase Total Protein Albumin Triglycerides LDL Cholesterol Direct HDL Cholesterol Urine WBC (Auto) Complement C3 Complement C4 12/12/16 12/12/16 12/12/16 16:53 19:51 20:43 WBC RBC Hgb Hct Plt Count Lymph % (Auto) [place] % (Auto) Lymph # Seg Neutrophils % Seg Neutrophils # PT INR POC ABG pH POC ABG pCO2 POC ABG pO2 Sodium Potassium Chloride Carbon Dioxide BUN Creatinine Glucose POC Glucose 272 H 238 H Lactic Acid 2.90 H* Calcium Phosphorus Magnesium AST Alkaline Phosphatase Total Protein Albumin Triglycerides LDL Cholesterol Direct HDL Cholesterol Urine WBC (Auto) Complement C3 Complement C4 12/12/16 12/13/16 12/13/16 21:30 03:39 03:39 WBC RBC Hgb Hct Plt Count 118 L Lymph % (Auto) 7.4 L [place] % (Auto) 7.6 H Lymph # 0.7 L Seg Neutrophils % 84.7 H Seg Neutrophils # 8.4 H PT INR POC ABG pH POC ABG pCO2 POC ABG pO2 Sodium 133 L Potassium Chloride 96.5 L Carbon Dioxide 18 L BUN 49 H Creatinine 3.1 H D Glucose 173 H POC Glucose Lactic Acid Calcium 8.3 L D Phosphorus Magnesium 1.20 L AST Alkaline Phosphatase Total Protein Albumin 2.6 L Triglycerides 166 H LDL Cholesterol Direct 24 L HDL Cholesterol 9 L Urine WBC (Auto) > 182.0 H Complement C3 Complement C4 12/13/16 12/13/16 12/13/16 07:41 11:53 17:23 WBC RBC Hgb Hct Plt Count Lymph % (Auto) [place] % (Auto) Lymph # Seg Neutrophils % Seg Neutrophils # PT INR POC ABG pH POC ABG pCO2 POC ABG pO2 Sodium Potassium Chloride Carbon Dioxide BUN Creatinine Glucose POC Glucose 222 H 221 H 247 H Lactic Acid Calcium Phosphorus Magnesium AST Alkaline Phosphatase Total Protein Albumin Triglycerides LDL Cholesterol Direct HDL Cholesterol Urine WBC (Auto) Complement C3 Complement C4 12/13/16 12/14/16 12/14/16 21:29 03:35 03:35 WBC RBC 3.42 L Hgb Hct Plt Count 86 L Lymph % (Auto) 6.1 L [place] % (Auto) Lymph # 0.3 L Seg Neutrophils % 87.3 H Seg Neutrophils # PT INR POC ABG pH POC ABG pCO2 POC ABG pO2 Sodium 133 L Potassium 5.1 H Chloride 96.2 L Carbon Dioxide 17 L BUN 63 H Creatinine 4.2 H Glucose 136 H POC Glucose 185 H Lactic Acid Calcium 8.1 L Phosphorus Magnesium 1.30 L AST Alkaline Phosphatase Total Protein Albumin Triglycerides LDL Cholesterol Direct HDL Cholesterol Urine WBC (Auto) Complement C3 Complement C4 12/14/16 12/14/16 12/14/16 08:32 09:00 09:00 WBC RBC Hgb Hct Plt Count Lymph % (Auto) [place] % (Auto) Lymph # Seg Neutrophils % Seg Neutrophils # PT INR POC ABG pH POC ABG pCO2 POC ABG pO2 Sodium Potassium Chloride Carbon Dioxide BUN Creatinine Glucose POC Glucose 152 H Lactic Acid Calcium Phosphorus Magnesium AST Alkaline Phosphatase Total Protein Albumin Triglycerides LDL Cholesterol Direct HDL Cholesterol Urine WBC (Auto) Complement C3 206 H Complement C4 56 H 12/14/16 12/14/16 12/15/16 11:50 17:35 04:35 WBC 4.1 L RBC 3.39 L Hgb Hct Plt Count 84 L Lymph % (Auto) 8.8 L [place] % (Auto) Lymph # 0.4 L Seg Neutrophils % 83.6 H Seg Neutrophils # PT INR POC ABG pH POC ABG pCO2 POC ABG pO2 Sodium Potassium Chloride Carbon Dioxide BUN Creatinine Glucose POC Glucose 168 H 154 H Lactic Acid Calcium Phosphorus Magnesium AST Alkaline Phosphatase Total Protein Albumin Triglycerides LDL Cholesterol Direct HDL Cholesterol Urine WBC (Auto) Complement C3 Complement C4 12/15/16 12/15/16 12/15/16 04:35 07:45 08:13 WBC RBC Hgb Hct Plt Count Lymph % (Auto) [place] % (Auto) Lymph # Seg Neutrophils % Seg Neutrophils # PT INR POC ABG pH 7.156 L POC ABG pCO2 48.7 H POC ABG pO2 Sodium Potassium 6.0 H Chloride Carbon Dioxide 15 L BUN 79 H Creatinine 5.0 H Glucose POC Glucose 113 H Lactic Acid Calcium 8.0 L Phosphorus 6.70 H D Magnesium AST Alkaline Phosphatase Total Protein Albumin Triglycerides LDL Cholesterol Direct HDL Cholesterol Urine WBC (Auto) Complement C3 Complement C4 12/15/16 12/15/16 12/15/16 15:20 23:53 Unknown WBC RBC 3.19 L Hgb 9.6 L Hct 29.8 L Plt Count 108 L Lymph % (Auto) 6.5 L [place] % (Auto) Lymph # 0.4 L Seg Neutrophils % 87.1 H Seg Neutrophils # PT INR POC ABG pH 7.228 L POC ABG pCO2 POC ABG pO2 232 H Sodium Potassium Chloride Carbon Dioxide BUN Creatinine Glucose POC Glucose 232 H Lactic Acid Calcium Phosphorus Magnesium AST Alkaline Phosphatase Total Protein Albumin Triglycerides LDL Cholesterol Direct HDL Cholesterol Urine WBC (Auto) Complement C3 Complement C4 12/15/16 12/15/16 12/16/16 Unknown Unknown 04:58 WBC RBC Hgb Hct Plt Count Lymph % (Auto) [place] % (Auto) Lymph # Seg Neutrophils % Seg Neutrophils # PT 16.2 H INR 1.31 H POC ABG pH POC ABG pCO2 POC ABG pO2 143 H Sodium Potassium Chloride Carbon Dioxide 16 L BUN 85 H Creatinine 4.9 H Glucose 205 H POC Glucose Lactic Acid Calcium 8.2 L Phosphorus Magnesium AST 77 H Alkaline Phosphatase 136 H Total Protein Albumin 2.3 L Triglycerides LDL Cholesterol Direct HDL Cholesterol Urine WBC (Auto) Complement C3 Complement C4 12/16/16 12/16/16 12/16/16 05:39 06:30 06:30 WBC 4.0 L RBC 3.23 L Hgb 9.6 L Hct 29.8 L Plt Count 110 L Lymph % (Auto) 11.3 L [place] % (Auto) Lymph # 0.5 L Seg Neutrophils % 81.2 H Seg Neutrophils # PT 17.6 H INR 1.45 H POC ABG pH POC ABG pCO2 POC ABG pO2 Sodium Potassium Chloride Carbon Dioxide BUN Creatinine Glucose POC Glucose 201 H Lactic Acid Calcium Phosphorus Magnesium AST Alkaline Phosphatase Total Protein Albumin Triglycerides LDL Cholesterol Direct HDL Cholesterol Urine WBC (Auto) Complement C3 Complement C4 12/16/16 12/16/16 12/16/16 06:30 11:16 15:30 WBC RBC Hgb Hct Plt Count Lymph % (Auto) [place] % (Auto) Lymph # Seg Neutrophils % Seg Neutrophils # PT INR POC ABG pH POC ABG pCO2 POC ABG pO2 Sodium Potassium Chloride Carbon Dioxide 20 L BUN 57 H Creatinine 3.6 H Glucose 176 H POC Glucose 194 H Lactic Acid Calcium 8.1 L Phosphorus 4.90 H D Magnesium 1.60 L AST 46 H 43 H Alkaline Phosphatase 137 H 156 H Total Protein 5.6 L Albumin 2.3 L 2.4 L Triglycerides LDL Cholesterol Direct HDL Cholesterol Urine WBC (Auto) Complement C3 Complement C4 12/16/16 12/16/16 12/17/16 17:23 23:35 03:38 WBC RBC Hgb Hct Plt Count Lymph % (Auto) [place] % (Auto) Lymph # Seg Neutrophils % Seg Neutrophils # PT INR POC ABG pH 7.485 H POC ABG pCO2 POC ABG pO2 Sodium Potassium Chloride Carbon Dioxide BUN Creatinine Glucose POC Glucose 209 H 179 H Lactic Acid Calcium Phosphorus Magnesium AST Alkaline Phosphatase Total Protein Albumin Triglycerides LDL Cholesterol Direct HDL Cholesterol Urine WBC (Auto) Complement C3 Complement C4 12/17/16 05:18 WBC RBC Hgb Hct Plt Count Lymph % (Auto) [place] % (Auto) Lymph # Seg Neutrophils % Seg Neutrophils # PT INR POC ABG pH POC ABG pCO2 POC ABG pO2 Sodium Potassium Chloride Carbon Dioxide BUN Creatinine Glucose POC Glucose 201 H Lactic Acid Calcium Phosphorus Magnesium AST Alkaline Phosphatase Total Protein Albumin Triglycerides LDL Cholesterol Direct HDL Cholesterol Urine WBC (Auto) Complement C3 Complement C4
--- NOTE | 2016-12-17 08:47 | Progress Note ---
Assessment and Plan 56 y/o female with acute respiratory failure secondary to cardiac arrest, acute renal failure now requiring HD and encephalopathy post arrest. 1. Appreciate Surgery for evaluating patient for trach. Hopeful this can happen soon. 2. Appreciate Neuro evaluation and recommendation. Will obtain CT of head soon. Need to discuss with RT and nursing the safety given current airway status 3. Follow up renal recs: May need HD again today. 4. Micro back from urine, abx therapy changed. 5. Abdomen remains distended. Has not been fed. Will repeat ABD film today. 6. Prognosis remains guarded. Will correct electrolyte and other metabolic abnormalities to see if mental status improves. Given patient's body habitus unable to place peg during surgery, will continue NG tube for now, determine if able to feed after repeat KUB CCT 31 minutes. Subjective Date of service: 12/17/16 Interval history: No acute events. Remains unresponsive on no sedation. Not breathing over the vent. Currently no family at bedside. Off pressors. Appears to have had HD yesterday. labs are pending from this am. Remainder is negative. Had a low grade temp of 100.8 Objective Vital Signs - 12hr 12/16/16 12/16/16 12/16/16 20:51 21:00 21:11 Temperature Pulse Rate 97 H 97 H 89 Pulse Rate [ From Monitor] Pulse Rate [ Left Femoral] Pulse Rate [ Right Femoral] Respiratory 18 20 21 Rate Blood Pressure 132/67 125/69 125/69 O2 Sat by Pulse 99 97 99 Oximetry 12/16/16 12/16/16 12/16/16 21:21 21:30 21:41 Temperature Pulse Rate 85 81 90 Pulse Rate [ From Monitor] Pulse Rate [ Left Femoral] Pulse Rate [ Right Femoral] Respiratory 19 20 19 Rate Blood Pressure 127/72 130/59 130/59 O2 Sat by Pulse 99 97 99 Oximetry 12/16/16 12/16/16 12/16/16 21:51 22:00 22:11 Temperature Pulse Rate 99 H 96 H 95 H Pulse Rate [ From Monitor] Pulse Rate [ Left Femoral] Pulse Rate [ Right Femoral] Respiratory 20 19 17 Rate Blood Pressure 116/56 131/71 131/71 O2 Sat by Pulse 99 99 99 Oximetry 12/16/16 12/16/16 12/16/16 22:21 22:30 22:41 Temperature Pulse Rate 92 H 94 H 78 Pulse Rate [ From Monitor] Pulse Rate [ Left Femoral] Pulse Rate [ Right Femoral] Respiratory 20 17 20 Rate Blood Pressure 120/60 130/71 130/71 O2 Sat by Pulse 99 97 98 Oximetry 12/16/16 12/16/16 12/16/16 22:51 23:00 23:10 Temperature 100.8 F H Pulse Rate 93 H 90 Pulse Rate [ From Monitor] Pulse Rate [ Left Femoral] Pulse Rate [ Right Femoral] Respiratory 18 20 Rate Blood Pressure 127/56 124/66 O2 Sat by Pulse 98 98 Oximetry 12/16/16 12/16/16 12/16/16 23:11 23:21 23:23 Temperature Pulse Rate 97 H 100 H 100 H Pulse Rate [ From Monitor] Pulse Rate [ Left Femoral] Pulse Rate [ Right Femoral] Respiratory 20 20 Rate Blood Pressure 124/66 116/61 116/61 O2 Sat by Pulse 100 98 98 Oximetry 12/16/16 12/16/16 12/16/16 23:30 23:41 23:51 Temperature Pulse Rate 90 86 89 Pulse Rate [ From Monitor] Pulse Rate [ Left Femoral] Pulse Rate [ Right Femoral] Respiratory 20 20 20 Rate Blood Pressure 135/80 135/80 107/64 O2 Sat by Pulse 99 99 99 Oximetry 12/17/16 12/17/16 12/17/16 00:00 00:11 00:21 Temperature Pulse Rate 90 93 H 89 Pulse Rate [ 84 From Monitor] Pulse Rate [ 84 Left Femoral] Pulse Rate [ 84 Right Femoral] Respiratory 20 17 20 Rate Blood Pressure 128/64 128/64 119/62 O2 Sat by Pulse 97 99 100 Oximetry 12/17/16 12/17/16 12/17/16 00:30 00:41 00:51 Temperature Pulse Rate 95 H 93 H 95 H Pulse Rate [ From Monitor] Pulse Rate [ Left Femoral] Pulse Rate [ Right Femoral] Respiratory 19 17 15 Rate Blood Pressure 126/64 126/64 131/65 O2 Sat by Pulse 99 99 97 Oximetry 12/17/16 12/17/16 12/17/16 01:00 01:11 01:21 Temperature Pulse Rate 95 H 77 74 Pulse Rate [ From Monitor] Pulse Rate [ Left Femoral] Pulse Rate [ Right Femoral] Respiratory 19 20 20 Rate Blood Pressure 121/67 121/67 124/62 O2 Sat by Pulse 98 98 100 Oximetry 12/17/16 12/17/16 12/17/16 01:30 01:41 01:51 Temperature Pulse Rate 87 84 88 Pulse Rate [ From Monitor] Pulse Rate [ Left Femoral] Pulse Rate [ Right Femoral] Respiratory 20 21 20 Rate Blood Pressure 120/62 120/62 118/64 O2 Sat by Pulse 99 99 99 Oximetry 12/17/16 12/17/16 12/17/16 02:00 02:11 02:21 Temperature Pulse Rate 81 81 81 Pulse Rate [ From Monitor] Pulse Rate [ Left Femoral] Pulse Rate [ Right Femoral] Respiratory 19 20 16 Rate Blood Pressure 123/62 123/62 119/70 O2 Sat by Pulse 98 99 99 Oximetry 12/17/16 12/17/16 12/17/16 02:31 02:41 02:51 Temperature Pulse Rate 92 H 97 H 80 Pulse Rate [ From Monitor] Pulse Rate [ Left Femoral] Pulse Rate [ Right Femoral] Respiratory 17 19 20 Rate Blood Pressure 118/64 118/64 136/81 O2 Sat by Pulse 97 99 99 Oximetry 12/17/16 12/17/16 12/17/16 03:00 03:11 03:14 Temperature 99.1 F Pulse Rate 73 84 Pulse Rate [ From Monitor] Pulse Rate [ Left Femoral] Pulse Rate [ Right Femoral] Respiratory 20 20 Rate Blood Pressure 106/59 106/59 O2 Sat by Pulse 97 100 Oximetry 12/17/16 12/17/16 12/17/16 03:21 03:26 03:30 Temperature Pulse Rate 73 78 86 Pulse Rate [ From Monitor] Pulse Rate [ Left Femoral] Pulse Rate [ Right Femoral] Respiratory 20 20 Rate Blood Pressure 124/69 124/69 120/63 O2 Sat by Pulse 99 99 98 Oximetry 12/17/16 12/17/16 12/17/16 03:37 03:41 03:51 Temperature Pulse Rate 88 96 H Pulse Rate [ From Monitor] Pulse Rate [ 82 Left Femoral] Pulse Rate [ 82 Right Femoral] Respiratory 15 17 16 Rate Blood Pressure 120/63 130/71 O2 Sat by Pulse 100 98 98 Oximetry 12/17/16 12/17/16 12/17/16 04:00 04:11 04:21 Temperature Pulse Rate 97 H 93 H 88 Pulse Rate [ From Monitor] Pulse Rate [ Left Femoral] Pulse Rate [ Right Femoral] Respiratory 18 18 16 Rate Blood Pressure 131/76 131/76 125/78 O2 Sat by Pulse 95 98 98 Oximetry 12/17/16 12/17/16 12/17/16 04:30 04:41 04:51 Temperature Pulse Rate 94 H 87 96 H Pulse Rate [ From Monitor] Pulse Rate [ Left Femoral] Pulse Rate [ Right Femoral] Respiratory 18 16 19 Rate Blood Pressure 118/76 118/76 131/73 O2 Sat by Pulse 96 98 97 Oximetry 12/17/16 12/17/16 05:00 05:11 Temperature Pulse Rate 92 H 93 H Pulse Rate [ From Monitor] Pulse Rate [ Left Femoral] Pulse Rate [ Right Femoral] Respiratory 17 18 Rate Blood Pressure 125/77 125/77 O2 Sat by Pulse 97 98 Oximetry Constitutional: comatose Eyes: other (eyes are covered) ENT: oropharynx dry, other (large tongue, evidence of trauma to area) Neck: supple, other (large in circumference) Effort: normal Ascultation: Bilateral: clear Cardiovascular: regular rate and rhythm Gastrointestinal: hypoactive bowel sounds, other (distended, tympanic) Integumentary: normal Extremities: anasarca Neurologic: unable to assess CBC and BMP: 12/16/16 06:30 12/16/16 06:30 ABG, PT/INR, D-dimer: ABG POC ABG pH 7.485 (7.35-7.45) H 12/17/16 03:38 POC ABG pCO2 35.9 (35-45) 12/17/16 03:38 POC ABG pO2 103 (80-105) 12/17/16 03:38 POC ABG HCO3 27.1 12/17/16 03:38 POC ABG Total CO2 28 12/17/16 03:38 POC ABG O2 Sat 98 12/17/16 03:38 PT/INR, D-dimer PT 17.6 Sec. (12.2-14.9) H 12/16/16 06:30 INR 1.45 (0.87-1.13) H 12/16/16 06:30 Abnormal lab findings: Abnormal Labs 12/12/16 12/12/16 12/12/16 08:06 12:27 15:23 WBC RBC Hgb Hct Plt Count Lymph % (Auto) Ramsey % (Auto) Lymph # Seg Neutrophils % Seg Neutrophils # PT INR POC ABG pH POC ABG pCO2 POC ABG pO2 Sodium Potassium Chloride Carbon Dioxide BUN Creatinine Glucose POC Glucose 299 H 281 H Lactic Acid 4.20 H* Calcium Phosphorus Magnesium AST Alkaline Phosphatase Total Protein Albumin Triglycerides LDL Cholesterol Direct HDL Cholesterol Urine WBC (Auto) Complement C3 Complement C4 12/12/16 12/12/16 12/12/16 16:53 19:51 20:43 WBC RBC Hgb Hct Plt Count Lymph % (Auto) Ramsey % (Auto) Lymph # Seg Neutrophils % Seg Neutrophils # PT INR POC ABG pH POC ABG pCO2 POC ABG pO2 Sodium Potassium Chloride Carbon Dioxide BUN Creatinine Glucose POC Glucose 272 H 238 H Lactic Acid 2.90 H* Calcium Phosphorus Magnesium AST Alkaline Phosphatase Total Protein Albumin Triglycerides LDL Cholesterol Direct HDL Cholesterol Urine WBC (Auto) Complement C3 Complement C4 12/12/16 12/13/16 12/13/16 21:30 03:39 03:39 WBC RBC Hgb Hct Plt Count 118 L Lymph % (Auto) 7.4 L Ramsey % (Auto) 7.6 H Lymph # 0.7 L Seg Neutrophils % 84.7 H Seg Neutrophils # 8.4 H PT INR POC ABG pH POC ABG pCO2 POC ABG pO2 Sodium 133 L Potassium Chloride 96.5 L Carbon Dioxide 18 L BUN 49 H Creatinine 3.1 H D Glucose 173 H POC Glucose Lactic Acid Calcium 8.3 L D Phosphorus Magnesium 1.20 L AST Alkaline Phosphatase Total Protein Albumin 2.6 L Triglycerides 166 H LDL Cholesterol Direct 24 L HDL Cholesterol 9 L Urine WBC (Auto) > 182.0 H Complement C3 Complement C4 12/13/16 12/13/16 12/13/16 07:41 11:53 17:23 WBC RBC Hgb Hct Plt Count Lymph % (Auto) Ramsey % (Auto) Lymph # Seg Neutrophils % Seg Neutrophils # PT INR POC ABG pH POC ABG pCO2 POC ABG pO2 Sodium Potassium Chloride Carbon Dioxide BUN Creatinine Glucose POC Glucose 222 H 221 H 247 H Lactic Acid Calcium Phosphorus Magnesium AST Alkaline Phosphatase Total Protein Albumin Triglycerides LDL Cholesterol Direct HDL Cholesterol Urine WBC (Auto) Complement C3 Complement C4 12/13/16 12/14/16 12/14/16 21:29 03:35 03:35 WBC RBC 3.42 L Hgb Hct Plt Count 86 L Lymph % (Auto) 6.1 L Ramsey % (Auto) Lymph # 0.3 L Seg Neutrophils % 87.3 H Seg Neutrophils # PT INR POC ABG pH POC ABG pCO2 POC ABG pO2 Sodium 133 L Potassium 5.1 H Chloride 96.2 L Carbon Dioxide 17 L BUN 63 H Creatinine 4.2 H Glucose 136 H POC Glucose 185 H Lactic Acid Calcium 8.1 L Phosphorus Magnesium 1.30 L AST Alkaline Phosphatase Total Protein Albumin Triglycerides LDL Cholesterol Direct HDL Cholesterol Urine WBC (Auto) Complement C3 Complement C4 12/14/16 12/14/16 12/14/16 08:32 09:00 09:00 WBC RBC Hgb Hct Plt Count Lymph % (Auto) Ramsey % (Auto) Lymph # Seg Neutrophils % Seg Neutrophils # PT INR POC ABG pH POC ABG pCO2 POC ABG pO2 Sodium Potassium Chloride Carbon Dioxide BUN Creatinine Glucose POC Glucose 152 H Lactic Acid Calcium Phosphorus Magnesium AST Alkaline Phosphatase Total Protein Albumin Triglycerides LDL Cholesterol Direct HDL Cholesterol Urine WBC (Auto) Complement C3 206 H Complement C4 56 H 12/14/16 12/14/16 12/15/16 11:50 17:35 04:35 WBC 4.1 L RBC 3.39 L Hgb Hct Plt Count 84 L Lymph % (Auto) 8.8 L Ramsey % (Auto) Lymph # 0.4 L Seg Neutrophils % 83.6 H Seg Neutrophils # PT INR POC ABG pH POC ABG pCO2 POC ABG pO2 Sodium Potassium Chloride Carbon Dioxide BUN Creatinine Glucose POC Glucose 168 H 154 H Lactic Acid Calcium Phosphorus Magnesium AST Alkaline Phosphatase Total Protein Albumin Triglycerides LDL Cholesterol Direct HDL Cholesterol Urine WBC (Auto) Complement C3 Complement C4 12/15/16 12/15/16 12/15/16 04:35 07:45 08:13 WBC RBC Hgb Hct Plt Count Lymph % (Auto) Ramsey % (Auto) Lymph # Seg Neutrophils % Seg Neutrophils # PT INR POC ABG pH 7.156 L POC ABG pCO2 48.7 H POC ABG pO2 Sodium Potassium 6.0 H Chloride Carbon Dioxide 15 L BUN 79 H Creatinine 5.0 H Glucose POC Glucose 113 H Lactic Acid Calcium 8.0 L Phosphorus 6.70 H D Magnesium AST Alkaline Phosphatase Total Protein Albumin Triglycerides LDL Cholesterol Direct HDL Cholesterol Urine WBC (Auto) Complement C3 Complement C4 12/15/16 12/15/16 12/15/16 15:20 23:53 Unknown WBC RBC 3.19 L Hgb 9.6 L Hct 29.8 L Plt Count 108 L Lymph % (Auto) 6.5 L Ramsey % (Auto) Lymph # 0.4 L Seg Neutrophils % 87.1 H Seg Neutrophils # PT INR POC ABG pH 7.228 L POC ABG pCO2 POC ABG pO2 232 H Sodium Potassium Chloride Carbon Dioxide BUN Creatinine Glucose POC Glucose 232 H Lactic Acid Calcium Phosphorus Magnesium AST Alkaline Phosphatase Total Protein Albumin Triglycerides LDL Cholesterol Direct HDL Cholesterol Urine WBC (Auto) Complement C3 Complement C4 12/15/16 12/15/16 12/16/16 Unknown Unknown 04:58 WBC RBC Hgb Hct Plt Count Lymph % (Auto) Ramsey % (Auto) Lymph # Seg Neutrophils % Seg Neutrophils # PT 16.2 H INR 1.31 H POC ABG pH POC ABG pCO2 POC ABG pO2 143 H Sodium Potassium Chloride Carbon Dioxide 16 L BUN 85 H Creatinine 4.9 H Glucose 205 H POC Glucose Lactic Acid Calcium 8.2 L Phosphorus Magnesium AST 77 H Alkaline Phosphatase 136 H Total Protein Albumin 2.3 L Triglycerides LDL Cholesterol Direct HDL Cholesterol Urine WBC (Auto) Complement C3 Complement C4 12/16/16 12/16/16 12/16/16 05:39 06:30 06:30 WBC 4.0 L RBC 3.23 L Hgb 9.6 L Hct 29.8 L Plt Count 110 L Lymph % (Auto) 11.3 L Ramsey % (Auto) Lymph # 0.5 L Seg Neutrophils % 81.2 H Seg Neutrophils # PT 17.6 H INR 1.45 H POC ABG pH POC ABG pCO2 POC ABG pO2 Sodium Potassium Chloride Carbon Dioxide BUN Creatinine Glucose POC Glucose 201 H Lactic Acid Calcium Phosphorus Magnesium AST Alkaline Phosphatase Total Protein Albumin Triglycerides LDL Cholesterol Direct HDL Cholesterol Urine WBC (Auto) Complement C3 Complement C4 12/16/16 12/16/16 12/16/16 06:30 11:16 15:30 WBC RBC Hgb Hct Plt Count Lymph % (Auto) Ramsey % (Auto) Lymph # Seg Neutrophils % Seg Neutrophils # PT INR POC ABG pH POC ABG pCO2 POC ABG pO2 Sodium Potassium Chloride Carbon Dioxide 20 L BUN 57 H Creatinine 3.6 H Glucose 176 H POC Glucose 194 H Lactic Acid Calcium 8.1 L Phosphorus 4.90 H D Magnesium 1.60 L AST 46 H 43 H Alkaline Phosphatase 137 H 156 H Total Protein 5.6 L Albumin 2.3 L 2.4 L Triglycerides LDL Cholesterol Direct HDL Cholesterol Urine WBC (Auto) Complement C3 Complement C4 12/16/16 12/16/16 12/17/16 17:23 23:35 03:38 WBC RBC Hgb Hct Plt Count Lymph % (Auto) Ramsey % (Auto) Lymph # Seg Neutrophils % Seg Neutrophils # PT INR POC ABG pH 7.485 H POC ABG pCO2 POC ABG pO2 Sodium Potassium Chloride Carbon Dioxide BUN Creatinine Glucose POC Glucose 209 H 179 H Lactic Acid Calcium Phosphorus Magnesium AST Alkaline Phosphatase Total Protein Albumin Triglycerides LDL Cholesterol Direct HDL Cholesterol Urine WBC (Auto) Complement C3 Complement C4 12/17/16 05:18 WBC RBC Hgb Hct Plt Count Lymph % (Auto) Ramsey % (Auto) Lymph # Seg Neutrophils % Seg Neutrophils # PT INR POC ABG pH POC ABG pCO2 POC ABG pO2 Sodium Potassium Chloride Carbon Dioxide BUN Creatinine Glucose POC Glucose 201 H Lactic Acid Calcium Phosphorus Magnesium AST Alkaline Phosphatase Total Protein Albumin Triglycerides LDL Cholesterol Direct HDL Cholesterol Urine WBC (Auto) Complement C3 Complement C4
[2016-12-17 09:38] LABS: Albumin 2.2 g/dL (3.9-5); Albumin/Globulin Ratio 0.5 %; BUN/Creatinine Ratio 16.12; Bilirubin,Total 0.3 mg/dL (0.1-1.2); Calcium 8.4 mg/dL (8.4-10.2); Chloride 100.1 mmol/L (98-107); Potassium 3.3 mmol/L (3.6-5.0); Total Protein 6.3 g/dL (6.3-8.2)
--- NOTE | 2016-12-17 09:52 | Progress Note ---
Assessment and Plan 1. TAYA likely 2/2 prerenal azotemia/ATN. ? acute GN. rapidly progressive Glomerulonephritis. Underlying CKD ? baseline unavailable 2. Dehydration 3. Essential HTN 4. Type II Diabetes 5. Toxic/metabolic encephalopathy 6. Urinary tract infection/sepsis 7. Mild hyperkalemia 8. AG metabolic acidosis/lactic acidosis /uremia Plan: Has started producing some urine but not adequate Electrolyte abnormalities improving with dialysis Will change HD to thrice weekly Replete potassium Continue supportive care Maintain MAP>=65 Avoid nephrotoxins F/u on Neuro recommendations Subjective Date of service: 12/10/16 Interval history: Off levophed. Remained unresponsive/No sedation Objective - Exam Narrative Exam: General female/on ventilator/unresponsive with no sedation HEENT: swollen toungue, sluggishly reactive pupils Lungs: decreased BS, few breaths above the vent Heart: S1S2 RRR with no~murmur,~gallop or rub Abdomen: distended, BS present Ext: trace edema, no clubbing Neuro: Unresponsive to painful stimuli, Skin: Warm and dry, - Vital Signs Vital signs: Vital Signs - 12hr 12/16/16 12/16/16 12/16/16 22:00 22:11 22:21 Temperature Pulse Rate 96 H 95 H 92 H Pulse Rate [ From Monitor] Pulse Rate [ Left Femoral] Pulse Rate [ Right Femoral] Respiratory 19 17 20 Rate Blood Pressure 131/71 131/71 120/60 O2 Sat by Pulse 99 99 99 Oximetry 12/16/16 12/16/16 12/16/16 22:30 22:41 22:51 Temperature Pulse Rate 94 H 78 93 H Pulse Rate [ From Monitor] Pulse Rate [ Left Femoral] Pulse Rate [ Right Femoral] Respiratory 17 20 18 Rate Blood Pressure 130/71 130/71 127/56 O2 Sat by Pulse 97 98 98 Oximetry 12/16/16 12/16/16 12/16/16 23:00 23:10 23:11 Temperature 100.8 F H Pulse Rate 90 97 H Pulse Rate [ From Monitor] Pulse Rate [ Left Femoral] Pulse Rate [ Right Femoral] Respiratory 20 20 Rate Blood Pressure 124/66 124/66 O2 Sat by Pulse 98 100 Oximetry 12/16/16 12/16/16 12/16/16 23:21 23:23 23:30 Temperature Pulse Rate 100 H 100 H 90 Pulse Rate [ From Monitor] Pulse Rate [ Left Femoral] Pulse Rate [ Right Femoral] Respiratory 20 20 Rate Blood Pressure 116/61 116/61 135/80 O2 Sat by Pulse 98 98 99 Oximetry 12/16/16 12/16/16 12/17/16 23:41 23:51 00:00 Temperature Pulse Rate 86 89 90 Pulse Rate [ 84 From Monitor] Pulse Rate [ 84 Left Femoral] Pulse Rate [ 84 Right Femoral] Respiratory 20 20 20 Rate Blood Pressure 135/80 107/64 128/64 O2 Sat by Pulse 99 99 97 Oximetry 12/17/16 12/17/16 12/17/16 00:11 00:21 00:30 Temperature Pulse Rate 93 H 89 95 H Pulse Rate [ From Monitor] Pulse Rate [ Left Femoral] Pulse Rate [ Right Femoral] Respiratory 17 20 19 Rate Blood Pressure 128/64 119/62 126/64 O2 Sat by Pulse 99 100 99 Oximetry 12/17/16 12/17/16 12/17/16 00:41 00:51 01:00 Temperature Pulse Rate 93 H 95 H 95 H Pulse Rate [ From Monitor] Pulse Rate [ Left Femoral] Pulse Rate [ Right Femoral] Respiratory 17 15 19 Rate Blood Pressure 126/64 131/65 121/67 O2 Sat by Pulse 99 97 98 Oximetry 12/17/16 12/17/16 12/17/16 01:11 01:21 01:30 Temperature Pulse Rate 77 74 87 Pulse Rate [ From Monitor] Pulse Rate [ Left Femoral] Pulse Rate [ Right Femoral] Respiratory 20 20 20 Rate Blood Pressure 121/67 124/62 120/62 O2 Sat by Pulse 98 100 99 Oximetry 12/17/16 12/17/16 12/17/16 01:41 01:51 02:00 Temperature Pulse Rate 84 88 81 Pulse Rate [ From Monitor] Pulse Rate [ Left Femoral] Pulse Rate [ Right Femoral] Respiratory 21 20 19 Rate Blood Pressure 120/62 118/64 123/62 O2 Sat by Pulse 99 99 98 Oximetry 12/17/16 12/17/16 12/17/16 02:11 02:21 02:31 Temperature Pulse Rate 81 81 92 H Pulse Rate [ From Monitor] Pulse Rate [ Left Femoral] Pulse Rate [ Right Femoral] Respiratory 20 16 17 Rate Blood Pressure 123/62 119/70 118/64 O2 Sat by Pulse 99 99 97 Oximetry 12/17/16 12/17/16 12/17/16 02:41 02:51 03:00 Temperature Pulse Rate 97 H 80 73 Pulse Rate [ From Monitor] Pulse Rate [ Left Femoral] Pulse Rate [ Right Femoral] Respiratory 19 20 20 Rate Blood Pressure 118/64 136/81 106/59 O2 Sat by Pulse 99 99 97 Oximetry 12/17/16 12/17/16 12/17/16 03:11 03:14 03:21 Temperature 99.1 F Pulse Rate 84 73 Pulse Rate [ From Monitor] Pulse Rate [ Left Femoral] Pulse Rate [ Right Femoral] Respiratory 20 20 Rate Blood Pressure 106/59 124/69 O2 Sat by Pulse 100 99 Oximetry 12/17/16 12/17/16 12/17/16 03:26 03:30 03:37 Temperature Pulse Rate 78 86 Pulse Rate [ From Monitor] Pulse Rate [ 82 Left Femoral] Pulse Rate [ 82 Right Femoral] Respiratory 20 15 Rate Blood Pressure 124/69 120/63 O2 Sat by Pulse 99 98 100 Oximetry 12/17/16 12/17/16 12/17/16 03:41 03:51 04:00 Temperature Pulse Rate 88 96 H 97 H Pulse Rate [ From Monitor] Pulse Rate [ Left Femoral] Pulse Rate [ Right Femoral] Respiratory 17 16 18 Rate Blood Pressure 120/63 130/71 131/76 O2 Sat by Pulse 98 98 95 Oximetry 12/17/16 12/17/16 12/17/16 04:11 04:21 04:30 Temperature Pulse Rate 93 H 88 94 H Pulse Rate [ From Monitor] Pulse Rate [ Left Femoral] Pulse Rate [ Right Femoral] Respiratory 18 16 18 Rate Blood Pressure 131/76 125/78 118/76 O2 Sat by Pulse 98 98 96 Oximetry 12/17/16 12/17/16 12/17/16 04:41 04:51 05:00 Temperature Pulse Rate 87 96 H 92 H Pulse Rate [ From Monitor] Pulse Rate [ Left Femoral] Pulse Rate [ Right Femoral] Respiratory 16 19 17 Rate Blood Pressure 118/76 131/73 125/77 O2 Sat by Pulse 98 97 97 Oximetry 12/17/16 12/17/16 12/17/16 05:11 05:21 05:30 Temperature Pulse Rate 93 H 92 H 89 Pulse Rate [ From Monitor] Pulse Rate [ Left Femoral] Pulse Rate [ Right Femoral] Respiratory 18 18 17 Rate Blood Pressure 125/77 137/77 130/73 O2 Sat by Pulse 98 99 97 Oximetry 0812/17/16 12/17/16 05:41 05:51 06:00 Temperature Pulse Rate 90 95 H 91 H Pulse Rate [ From Monitor] Pulse Rate [ Left Femoral] Pulse Rate [ Right Femoral] Respiratory 18 18 17 Rate Blood Pressure 130/73 132/77 130/72 O2 Sat by Pulse 98 98 97 Oximetry 12/17/16 12/17/16 12/17/16 06:11 06:21 06:30 Temperature Pulse Rate 88 87 95 H Pulse Rate [ From Monitor] Pulse Rate [ Left Femoral] Pulse Rate [ Right Femoral] Respiratory 16 17 19 Rate Blood Pressure 130/72 128/75 135/77 O2 Sat by Pulse 99 99 96 Oximetry 12/17/16 12/17/16 12/17/16 06:41 06:51 07:00 Temperature Pulse Rate 92 H 95 H 91 H Pulse Rate [ From Monitor] Pulse Rate [ Left Femoral] Pulse Rate [ Right Femoral] Respiratory 17 19 19 Rate Blood Pressure 135/77 135/73 128/75 O2 Sat by Pulse 99 98 96 Oximetry 12/17/16 12/17/16 12/17/16 07:11 07:21 07:30 Temperature Pulse Rate 95 H 88 77 Pulse Rate [ From Monitor] Pulse Rate [ Left Femoral] Pulse Rate [ Right Femoral] Respiratory 20 17 16 Rate Blood Pressure 128/75 124/72 114/61 O2 Sat by Pulse 98 99 96 Oximetry 12/17/16 12/17/16 12/17/16 07:41 07:51 08:00 Temperature 99 F Pulse Rate 94 H 83 88 Pulse Rate [ From Monitor] Pulse Rate [ Left Femoral] Pulse Rate [ Right Femoral] Respiratory 19 15 18 Rate Blood Pressure 114/61 131/76 135/71 O2 Sat by Pulse 98 99 97 Oximetry 12/17/16 12/17/16 12/17/16 08:11 08:21 08:30 Temperature Pulse Rate 91 H 94 H 90 Pulse Rate [ From Monitor] Pulse Rate [ Left Femoral] Pulse Rate [ Right Femoral] Respiratory 18 19 17 Rate Blood Pressure 135/71 126/67 136/73 O2 Sat by Pulse 99 98 98 Oximetry 12/17/16 12/17/16 12/17/16 08:41 08:51 09:00 Temperature Pulse Rate 94 H 75 87 Pulse Rate [ From Monitor] Pulse Rate [ Left Femoral] Pulse Rate [ Right Femoral] Respiratory 18 17 15 Rate Blood Pressure 136/73 126/65 131/73 O2 Sat by Pulse 99 99 97 Oximetry 12/17/16 12/17/16 12/17/16 09:11 09:21 09:30 Temperature Pulse Rate 80 94 H 92 H Pulse Rate [ From Monitor] Pulse Rate [ Left Femoral] Pulse Rate [ Right Femoral] Respiratory 15 18 20 Rate Blood Pressure 131/73 135/76 139/72 O2 Sat by Pulse 99 98 97 Oximetry - Lab 12/17/16 13:58 12/17/16 07:24 Most recent lab results Calcium 8.4 mg/dL (8.4-10.2) 12/17/16 07:24 Phosphorus 4.90 mg/dL (2.5-4.5) H D 12/16/16 06:30 Magnesium 1.60 mg/dL (1.7-2.3) L 12/16/16 06:30
[2016-12-17] MEDS: ROCEPHIN/NS 2 GM/100 ML 2 GM/100 ML BAG IV SCH (10:26)
[2016-12-17] MEDS: PEPCID IV SCH (10:28)
[2016-12-17] MEDS: ASPIRIN PO SCH (10:29)
--- NOTE | 2016-12-17 10:38 | XRay Report ---
ABDOMEN RADIOGRAPHS INDICATION: Abdominal distention. COMPARISON: Yesterday. FINDINGS: Frontal abdominal radiographs, 10:08 AM, 12/17/2016 again demonstrates esophagogastric tube tip about the pylorus or duodenal bulb. Right groin vascular catheter may also extend into the lower IVC. Diffuse colonic air noted within maximum caliber along the transverse and descending colon of approximately 7-8 cm. No focal suspicious calcifications, pneumatosis or pneumoperitoneum, to the extent assessed. Multilevel spinal degenerative changes. EKG leads. CONCLUSION: No significant interval change with findings, as above. Thank you for the opportunity to participate in this patient's care.
[2016-12-17 14:19] LABS: Basophils % (Auto) 0.2 % (0.0-1.8); Eosinophils % (Auto) 0.8 % (0.0-4.3); Hematocrit 27.2 % (30.3-42.9); Hemoglobin 9.2 gm/dl (10.1-14.3); Mean Corpuscular HGB Conc 34 % (30-34); Mean Corpuscular Hemoglobin 30 pg (28-32); Mean Corpuscular Volume 90 fl (79-97); Platelet Count 100 K/mm3 (140-440); Red Blood Count 3.02 M/mm3 (3.65-5.03); Red Cell Distribution Width 14.8 % (13.2-15.2); White Blood Count 5.2 K/mm3 (4.5-11.0)
[2016-12-17] MEDS: LEVEMIR SUB-Q SCH (14:56)
--- NOTE | 2016-12-17 14:59 | Progress Note ---
Assessment and Plan Assessment and plan: 56-year-old woman with a past medical history of [id number] diabetes , hypertension, chronic intermittent left middle toe infection presented to the hospital with right arm weakness and slurred speech. Patient also has history of frequent falls, chronic left knee pain and osteoarthritis and was planned for knee replacement. She was admitted to the hospital for stroke workup, she was found to have acute kidney injury on admission. Her kidney function continued to worsen, she was planned for CT-guided kidney biopsy on 12/15, but while she was at CT scan, she had an episode of cardiac arrest, she received CPR , unfortunately she had a very difficult airway multiple sclerosis for attempts were tried after which she had an emergency cricothyroidotomy. She most likely had prolonged period of anoxia leading to anoxic brain injury. Her mental status has not improved since then since this incidents she has been comatose Acute kidney injury * likely secondary to ATN, nephrology input appreciated, continue hemodialysis Toxic metabolic encephalopathy * Due to kidney failure, treating underlying cause Type 2 diabetes * Continue sliding scale, Hypertension * BP acceptable, continue current management Metabolic encephalopathy * Initially was most likely due to uremia * She had an MRI of her brain on 12/12 did not show any acute changes * However she's not had brain imaging since she had anoxic event on 12/15, awaiting a more stable tracheostomy prior to getting CT scan. 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 Hyperlipidemia Continue statin Hypothyroidism TSH within normal limits Continue Synthroid at current dose Obesity Hypoventilation/SHELIA continue vent DVT prophylaxis continue heparin Discussed with family and consultants Prognosis is poor. patient will likely need trache and PEG and SNF placement The high probability of a clinically significant, sudden or life threatening deterioration of the [pulmonary, cardiovascular, renal, ] system(s) required my full and direct attention, intervention and personal management. The aggregate critical care time was [33] minutes. This time is in addition to time spent performing reported procedures but includes the following: [] Data Review and interpretation [] Patient assessment and monitoring of vital signs [] Documentation [] Medication orders and management History Interval history: still comatose, non responsive, non verbal, no purposeful movement Hospitalist Physical - Physical exam Narrative exam: General.: Appears well, no distress, nontoxic HEENT: Moist mucous membranes, extraocular muscles intact, no lymphadenopathy Neck: supple Cardiac: S1-S2 heard Lungs: clear to auscultation bilaterally Abdomen: soft , nontender, nondistended, bowel sounds positive Extremities: no edema clubbing or cyanosis Skin: no rash or lesions Neurologic: comatose, pupils responsive to light, no purposeful movement, trached, not on sedation - Constitutional Vitals: Temp Pulse Resp BP Pulse Ox 99 F 89 15 132/60 99 12/17/16 12:00 12/17/16 13:21 12/17/16 13:21 12/17/16 13:21 12/17/16 13:21 General appearance: Present: mild distress, obese Results - Labs CBC & Chem 7: 12/17/16 13:58 12/18/16 07:52 Labs: Laboratory Last Values WBC 5.2 K/mm3 (4.5-11.0) 12/17/16 13:58 RBC 3.02 M/mm3 (3.65-5.03) L 12/17/16 13:58 Hgb 9.2 gm/dl (10.1-14.3) L 12/17/16 13:58 Hct 27.2 % (30.3-42.9) L 12/17/16 13:58 MCV 90 fl (79-97) 12/17/16 13:58 MCH 30 pg (28-32) 12/17/16 13:58 MCHC 34 % (30-34) 12/17/16 13:58 RDW 14.8 % (13.2-15.2) 12/17/16 13:58 Plt Count 100 K/mm3 (140-440) L 12/17/16 13:58 Lymph % (Auto) 16.1 % (13.4-35.0) 12/17/16 13:58 [place] % (Auto) 7.9 % (0.0-7.3) H 12/17/16 13:58 Eos % (Auto) 0.8 % (0.0-4.3) 12/17/16 13:58 Baso % (Auto) 0.2 % (0.0-1.8) 12/17/16 13:58 Lymph # 0.8 K/mm3 (1.2-5.4) L 12/17/16 13:58 [place] # 0.4 K/mm3 (0.0-0.8) 12/17/16 13:58 Eos # 0.0 K/mm3 (0.0-0.4) 12/17/16 13:58 Baso # 0.0 K/mm3 (0.0-0.1) 12/17/16 13:58 Seg Neutrophils % 75.0 % (40.0-70.0) H 12/17/16 13:58 Seg Neutrophils # 3.9 K/mm3 (1.8-7.7) 12/17/16 13:58 PT 17.6 Sec. (12.2-14.9) H 12/16/16 06:30 INR 1.45 (0.87-1.13) H 12/16/16 06:30 APTT 27.6 Sec. (24.2-36.6) 12/11/16 23:50 Thrombin Time 16.6 Sec. (15.1-19.6) 12/11/16 23:50 POC ABG pH 7.485 (7.35-7.45) H 12/17/16 03:38 POC ABG pCO2 35.9 (35-45) 12/17/16 03:38 POC ABG pO2 103 (80-105) 12/17/16 03:38 POC ABG HCO3 27.1 12/17/16 03:38 POC ABG Total CO2 28 12/17/16 03:38 POC ABG O2 Sat 98 12/17/16 03:38 POC ABG Base Excess 4 12/17/16 03:38 FiO2 40 % 12/17/16 03:38 Sodium 143 mmol/L (137-145) 12/17/16 07:24 Potassium 3.3 mmol/L (3.6-5.0) L 12/17/16 07:24 Chloride 100.1 mmol/L (98-107) 12/17/16 07:24 Carbon Dioxide 25 mmol/L (22-30) 12/17/16 07:24 Anion Gap 21 mmol/L 12/17/16 07:24 BUN 50 mg/dL (7-17) H 12/17/16 07:24 Creatinine 3.1 mg/dL (0.7-1.2) H 12/17/16 07:24 Estimated GFR 15 ml/min 12/17/16 07:24 BUN/Creatinine Ratio 16.12 % 12/17/16 07:24 Glucose 181 mg/dL (65-100) H 12/17/16 07:24 POC Glucose 201 (70-105) H 12/17/16 05:18 Lactic Acid 1.80 mmol/L (0.7-2.0) 12/15/16 Unknown Calcium 8.4 mg/dL (8.4-10.2) 12/17/16 07:24 Phosphorus 4.90 mg/dL (2.5-4.5) H D 12/16/16 06:30 Magnesium 1.60 mg/dL (1.7-2.3) L 12/16/16 06:30 Total Bilirubin 0.30 mg/dL (0.1-1.2) 12/17/16 07:24 Direct Bilirubin < 0.2 mg/dL (0-0.2) 12/16/16 15:30 Indirect Bilirubin 0.0 mg/dL 12/16/16 15:30 AST 40 units/L (5-40) 12/17/16 07:24 ALT 27 units/L (7-56) 12/17/16 07:24 Alkaline Phosphatase 155 units/L (35-129) H 12/17/16 07:24 Total Creatine Kinase 73 units/L (30-135) 12/15/16 04:35 Troponin T < 0.010 ng/mL (0.00-0.029) 12/11/16 23:50 Total Protein 6.3 g/dL (6.3-8.2) 12/17/16 07:24 Albumin 2.2 g/dL (3.9-5) L 12/17/16 07:24 Albumin/Globulin Ratio 0.5 % 12/17/16 07:24 Triglycerides 166 mg/dL (2-149) H 12/13/16 03:39 Cholesterol 66 mg/dL (50-199) 12/13/16 03:39 LDL Cholesterol Direct 24 mg/dL (50-130) L 12/13/16 03:39 HDL Cholesterol 9 mg/dL (40-59) L 12/13/16 03:39 Cholesterol/HDL Ratio 7.33 % 12/13/16 03:39 TSH 2.640 mlU/mL (0.270-4.200) 12/12/16 15:23 Urine Color Yellow (Yellow) 12/12/16 21:30 Urine Turbidity Turbid (Clear) 12/12/16 21:30 Urine pH 5.0 (5.0-7.0) 12/12/16 21:30 Ur Specific Mutual 1.015 (1.003-1.030) 12/12/16 21:30 Urine Protein 100 mg/dl mg/dL (Negative) 12/12/16 21:30 Urine Glucose (UA) Neg mg/dL (Negative) 12/12/16 21:30 Urine Ketones Neg mg/dL (Negative) 12/12/16 21:30 Urine Blood Lg (Negative) 12/12/16 21:30 Urine Nitrite Neg (Negative) 12/12/16 21:30 Urine Bilirubin Neg (Negative) 12/12/16 21:30 Urine Urobilinogen < 2.0 mg/dL (<2.0) 12/12/16 21:30 Ur Leukocyte Esterase Lg (Negative) 12/12/16 21:30 Urine WBC (Auto) > 182.0 /HPF (0.0-6.0) H 12/12/16 21:30 Urine RBC (Auto) 62.0 /HPF (0.0-6.0) 12/12/16 21:30 U Epithel Cells (Auto) 7.0 /HPF (0-13.0) 12/12/16 21:30 Urine Bacteria (Auto) 4+ /HPF (Negative) 12/12/16 21:30 Urine WBC Clumps 3+ /HPF 12/12/16 21:30 Calcium Oxalate Crystal 3+ 12/12/16 21:30 Urine Opiates Screen Presumptive negative 12/12/16 21:30 Urine Methadone Screen Presumptive negative 12/12/16 21:30 Ur Barbiturates Screen Presumptive negative 12/12/16 21:30 Ur Phencyclidine Scrn Presumptive negative 08/25/17 21:30 Ur Amphetamines Screen Presumptive negative 12/12/16 21:30 U Benzodiazepines Scrn Presumptive negative 12/12/16 21:30 Urine Cocaine Screen Presumptive negative 12/12/16 21:30 U Marijuana (THC) Screen Presumptive negative 12/12/16 21:30 Drugs of Abuse Note Disclamer 12/12/16 21:30 Glomerular Base Mem IgG <1.0 AI (<1.0) 12/14/16 09:00 Complement C3 206 mg/dL (90-180) H 12/14/16 09:00 Complement C4 56 mg/dL (16-47) H 12/14/16 09:00
--- NOTE | 2016-12-17 16:14 | Progress Note ---
Subjective Date of service: 12/17/16 Narrative: Intubated on vent - 0n 35 % Fio2 with good O2 sat Pt not responsive even to deep pressure on the chest Neck - ET tube thru cricothyroidotomy at 13 - 14 cm level, minimal dried blood at the insertion site.No sq emphysema Lt IJ CVP line in place NGT in place Imp- anoxic encephalopathy - emergency cricothyroidotomy Plan - for trachesotomy in O.R tomorrow consent doen Platelets 100 k, bleeding will not be a problem Consent done Objective Vital Signs - 12hr 12/17/16 12/17/16 12/17/16 04:11 04:21 04:30 Temperature Pulse Rate 93 H 88 94 H Respiratory 18 16 18 Rate Blood Pressure 131/76 125/78 118/76 O2 Sat by Pulse 98 98 96 Oximetry 12/17/16 12/17/16 12/17/16 04:41 04:51 05:00 Temperature Pulse Rate 87 96 H 92 H Respiratory 16 19 17 Rate Blood Pressure 118/76 131/73 125/77 O2 Sat by Pulse 98 97 97 Oximetry 12/17/16 12/17/16 12/17/16 05:11 05:21 05:30 Temperature Pulse Rate 93 H 92 H 89 Respiratory 18 18 17 Rate Blood Pressure 125/77 137/77 130/73 O2 Sat by Pulse 98 99 97 Oximetry 12/17/16 12/17/16 12/17/16 05:41 05:51 06:00 Temperature Pulse Rate 90 95 H 91 H Respiratory 18 18 17 Rate Blood Pressure 130/73 132/77 130/72 O2 Sat by Pulse 98 98 97 Oximetry 12/17/16 12/17/16 12/17/16 06:11 06:21 06:30 Temperature Pulse Rate 88 87 95 H Respiratory 16 17 19 Rate Blood Pressure 130/72 128/75 135/77 O2 Sat by Pulse 99 99 96 Oximetry 12/17/16 12/17/16 12/17/16 06:41 06:51 07:00 Temperature Pulse Rate 92 H 95 H 91 H Respiratory 17 19 19 Rate Blood Pressure 135/77 135/73 128/75 O2 Sat by Pulse 99 98 96 Oximetry 12/17/16 12/17/16 12/17/16 07:11 07:21 07:30 Temperature Pulse Rate 95 H 88 77 Respiratory 20 17 16 Rate Blood Pressure 128/75 124/72 114/61 O2 Sat by Pulse 98 99 96 Oximetry 12/17/16 12/17/16 12/17/16 07:41 07:51 08:00 Temperature 99 F Pulse Rate 94 H 83 88 Respiratory 19 15 18 Rate Blood Pressure 114/61 131/76 135/71 O2 Sat by Pulse 98 99 97 Oximetry 12/17/16 12/17/16 12/17/16 08:11 08:21 08:30 Temperature Pulse Rate 91 H 94 H 90 Respiratory 18 19 17 Rate Blood Pressure 135/71 126/67 136/73 O2 Sat by Pulse 99 98 98 Oximetry 12/17/16 12/17/16 12/17/16 08:41 08:51 09:00 Temperature Pulse Rate 94 H 75 87 Respiratory 18 17 15 Rate Blood Pressure 136/73 126/65 131/73 O2 Sat by Pulse 99 99 97 Oximetry 12/17/16 12/17/16 12/17/16 09:11 09:21 09:30 Temperature Pulse Rate 80 94 H 92 H Respiratory 15 18 20 Rate Blood Pressure 131/73 135/76 139/72 O2 Sat by Pulse 99 98 97 Oximetry 12/17/16 12/17/16 12/17/16 09:40 09:41 09:51 Temperature Pulse Rate 79 93 H 91 H Respiratory 18 20 Rate Blood Pressure 127/64 139/72 127/64 O2 Sat by Pulse 99 98 99 Oximetry 12/17/16 12/17/16 12/17/16 10:00 10:11 10:15 Temperature Pulse Rate 93 H 88 91 H Respiratory 21 19 23 Rate Blood Pressure 136/70 136/70 129/77 O2 Sat by Pulse 96 97 97 Oximetry 12/17/16 12/17/16 12/17/16 10:21 10:30 10:41 Temperature Pulse Rate 97 H 94 H 91 H Respiratory 23 20 18 Rate Blood Pressure 123/69 125/72 136/70 O2 Sat by Pulse 98 96 98 Oximetry 12/17/16 12/17/16 12/17/16 10:51 11:00 11:11 Temperature Pulse Rate 86 91 H 85 Respiratory 16 18 15 Rate Blood Pressure 129/72 129/77 129/77 O2 Sat by Pulse 99 97 99 Oximetry 12/17/16 12/17/16 12/17/16 11:21 11:30 11:41 Temperature Pulse Rate 84 83 85 Respiratory 16 15 16 Rate Blood Pressure 130/65 132/69 132/69 O2 Sat by Pulse 98 96 99 Oximetry 12/17/16 12/17/16 12/17/16 11:51 12:00 12:11 Temperature 99 F Pulse Rate 91 H 81 91 H Respiratory 18 14 17 Rate Blood Pressure 133/72 124/63 124/63 O2 Sat by Pulse 99 97 99 Oximetry 12/17/16 12/17/16 12/17/16 12:21 12:30 12:41 Temperature Pulse Rate 87 93 H 91 H Respiratory 15 21 19 Rate Blood Pressure 127/64 131/66 131/66 O2 Sat by Pulse 99 96 99 Oximetry 12/17/16 12/17/16 12/17/16 12:51 13:00 13:11 Temperature Pulse Rate 93 H 89 90 Respiratory 19 16 19 Rate Blood Pressure 126/75 135/70 135/70 O2 Sat by Pulse 99 96 99 Oximetry 12/17/16 12/17/16 12/17/16 13:16 13:21 14:52 Temperature Pulse Rate 82 89 80 Respiratory 15 16 Rate Blood Pressure 132/60 134/64 O2 Sat by Pulse 99 99 Oximetry 12/17/16 16:00 Temperature 99.2 F Pulse Rate Respiratory Rate Blood Pressure O2 Sat by Pulse Oximetry - Labs 12/17/16 13:58 12/17/16 07:24 Diabetes panel 12/17/16 Range/Units 07:24 Sodium 143 (137-145) mmol/L Potassium 3.3 L (3.6-5.0) mmol/L Chloride 100.1 (98-107) mmol/L Carbon Dioxide 25 (22-30) mmol/L BUN 50 H (7-17) mg/dL Creatinine 3.1 H (0.7-1.2) mg/dL Glucose 181 H (65-100) mg/dL Calcium 8.4 (8.4-10.2) mg/dL AST 40 (5-40) units/L ALT 27 (7-56) units/L Alkaline Phosphatase 155 H (35-129) units/L Total Protein 6.3 (6.3-8.2) g/dL Albumin 2.2 L (3.9-5) g/dL Calcium panel 12/17/16 Range/Units 07:24 Calcium 8.4 (8.4-10.2) mg/dL Albumin 2.2 L (3.9-5) g/dL Pituitary panel 12/17/16 Range/Units 07:24 Sodium 143 (137-145) mmol/L Potassium 3.3 L (3.6-5.0) mmol/L Chloride 100.1 (98-107) mmol/L Carbon Dioxide 25 (22-30) mmol/L BUN 50 H (7-17) mg/dL Creatinine 3.1 H (0.7-1.2) mg/dL Glucose 181 H (65-100) mg/dL Calcium 8.4 (8.4-10.2) mg/dL Adrenal panel 12/17/16 Range/Units 07:24 Sodium 143 (137-145) mmol/L Potassium 3.3 L (3.6-5.0) mmol/L Chloride 100.1 (98-107) mmol/L Carbon Dioxide 25 (22-30) mmol/L BUN 50 H (7-17) mg/dL Creatinine 3.1 H (0.7-1.2) mg/dL Glucose 181 H (65-100) mg/dL Calcium 8.4 (8.4-10.2) mg/dL Total Bilirubin 0.30 (0.1-1.2) mg/dL AST 40 (5-40) units/L ALT 27 (7-56) units/L Alkaline Phosphatase 155 H (35-129) units/L Total Protein 6.3 (6.3-8.2) g/dL Albumin 2.2 L (3.9-5) g/dL
[2016-12-17 20:04] LABS: Myeloperoxidase Antibody <1.0 AI (<1.0)
[2016-12-17] MEDS: ZOCOR PO SCH (22:16)
--- NOTE | 2016-12-17 23:59 | Consultation ---
NEUROLOGIC CONSULTATION CHIEF COMPLAINT: I am asked to see this 56-year-old woman for evaluation of coma following a PEA cardiac arrest in the CT scanner yesterday than 24 hours ago. History reviewed in detail. The patient had a multiplicity of problems in the past including diabetes mellitus type 2, hypertension, hyperlipidemia, and chronic renal failure. She was brought to the hospital by her because of an episode that apparently lasted approximately 30 minutes of the patient having either slurred or confused speech. There was some history, inconsistent, of right arm weakness associated with this. She was seen and evaluated in the ED and admitted. MRI scan performed on 12/12/2016 was normal with no evidence of acute or remote infarction. Carotid ultrasound studies and SILVIA were also both within normal limits except for a noncompliant left ventricle on the SILVIA. Thus a TIA/stroke workup had been completed. It was also noted that the patient was confused (encephalopathic) by multiple examiners and this is thought to be secondary to her creatinine at 3.1 and BUN of 49 together with her urinary tract infection and sepsis for which she was being treated with fluids and antibiotics. Hemodialysis was planned. She was taken down to a CT scanner for a renal biopsy and immediately following that procedure in the CT scan area, she suffered a PEA cardiac arrest. A Code Blue was called. Because of her morbid obesity and short neck, intubation was extremely difficult. Endotracheal and nasotracheal intubation were attempted without success. ED and pulmonary consultants participated and a surgical cricothyroidotomy was ultimately performed. Meanwhile CPR had been initiated at the outset. She was then transferred to the intensive care unit and is now on pressors. She has been unresponsive since that time. Neurologic consultation is requested to evaluate her neurologic status. REVIEW OF SYSTEMS: Not possible at this time. FAMILY HISTORY AND SOCIAL HISTORY: Not re-reviewed. PHYSICAL EXAMINATION: GENERAL: At this time, she is found lying in bed on a ventilator, motionless, and with no evident agitation. VITAL SIGNS: As recorded. NECK: Supple. There are no carotid bruits. HEART: Without murmurs, rubs or gallops. ABDOMEN: Bowel sounds absent at this time. EXTREMITIES: Reveal no evidence of ecchymoses or trauma. NEUROLOGIC: Not on any sedation whatsoever, she follows zero commands. There is no response to noxious stimulation of all four extremities either in the extremity being stimulated and there is no grimace response. The eyes are disconjugate beneath closed lids. There are no extraocular movements on doll's head maneuver. Both pupils are 4 mm in diameter, equal, round, regular, and sluggishly reactive to bright light illumination. There is no facial asymmetry. Motor responses are described as above, which is also a test of sensory function with no response observed. Tendon reflexes are 2+ at the biceps on both sides, absent at both knees and ankles. Both great toes are unresponsive to plantar stimulation. IMPRESSION: 1. Coma secondary to anoxic/hypoperfusion, [employer] insults secondary to her PEA arrest, superimposed on 2. below. 2. Metabolic encephalopathy secondary to her acute on chronic renal failure. BUN 49, creatinine 3.1, urinary tract infection with sepsis and other metabolic abnormalities. 3. History of either slurred speech or difficulty finding words as relayed by the patient's according to the chart, which was the proximate cause of her visit to the ED. Her neurologic examination was found to be non-focal and normal at that time except for her confusion (encephalopathy). There was some history of right arm weakness, which if accurate suggests possible TIA, although most likely the symptoms that brought her here were those of encephalopathy. In any event, an MRI scan of the brain on 12/12/2016 was normal with no evidence of acute brain infarction and carotid Doppler studies and a SILVIA were both normal except for a noncompliant left ventricle on SILVIA. 4. Multiple other medical diagnoses as well documented. RECOMMENDATIONS: 1. As it is early in the patient's course (less than 24 hours since PEA arrest), we can be hopeful that with resolution of her metabolic abnormalities improvement in her central nervous system function will be observed, pursue management full-court press. 2. Please obtain a CT scan of the head today. This consultation is appreciated. JOB# [id number] [facility]/NIOCLE MARTINEZ
[2016-12-18] MEDS: NOVOLOG SUB-Q SCH ×4 (00:56→19:33)
[2016-12-18 04:08] LABS: ISTAT Base Excess 0; ISTAT HCO3 24.4; ISTAT PCO2 37.7 (35-45); ISTAT PH 7.419 (7.35-7.45); ISTAT PO2 91 (80-105); ISTAT SO2 97; ISTAT TCO2 26
--- NOTE | 2016-12-18 04:28 | Anesthesia Consultation ---
Anesthesia Consult and Med Hx Date of service: 12/18/16 - Cardiac Exam Anesthetic Concerns: Patient is S/P PEA on 12/16/[address] scan. She had prolonged resuscitation, could not be intubated and underwent emergent cricothyroidotomy.She is presently hypotensive on pressors with metobolic encephalopathy with superimposed anoxic encepalopathy. - Pre-Operative Health Status ASA Pre-Surgery Classification: ASA5 Proposed Anesthetic Plan: General, MAC - Pulmonary Hx Pneumonia: No Hx Sleep Apnea: Yes - Cardiovascular System Hx Hypertension: Yes - Endocrine Hx Renal Disease: Yes (ARF creatinine 3.1) Hx Hypothyroidism: Yes - Hematic Hx Anemia: Yes (Hgb 9.2, Platelets 100K, INR 1.45) - Other Systems Hx Cancer: No Hx Obesity: Yes (morbid) - Additional Comments Anesthesia Medical History Comments: Hyperlipidemia, sepsis
[2016-12-18 04:52] LABS: Albumin 2.6 g/dL (3.8-4.8); Gamma Globulin 0.7 g/dL (0.8-1.7)
[2016-12-18] MEDS: HEPARIN SUB-Q SCH ×3 (07:07→22:29)
[2016-12-18 08:24] LABS: BUN/Creatinine Ratio 15.33; Calcium 8.6 mg/dL (8.4-10.2); Chloride 101.8 mmol/L (98-107)
[2016-12-18 08:27] LABS: Potassium 2.9 mmol/L (3.6-5.0)
--- NOTE | 2016-12-18 09:09 | XRay Report ---
Portable chest: Respiratory failure. Comparison is made to the recent study of December 17. No change in the multiple life support tubes withdrawal in good positions. Continued hypoventilation of the lungs with compressed right pulmonary lung markings but no definite infiltrate and no effusion. Impression: No interval change.
[2016-12-18] MEDS: ROCEPHIN/NS 2 GM/100 ML 2 GM/100 ML BAG IV SCH (09:36)
[2016-12-18] MEDS: PEPCID IV SCH (09:38)
--- NOTE | 2016-12-18 11:36 | Progress Note ---
Assessment and Plan Assessment and plan: 56-year-old woman with a past medical history of amf-hhxkcqs-ittpydaga diabetes , hypertension, chronic intermittent left middle toe infection presented to the hospital with right arm weakness and slurred speech. Patient also has history of frequent falls, chronic left knee pain and osteoarthritis and was planned for knee replacement. She was admitted to the hospital for stroke workup, she was found to have acute kidney injury on admission. Her kidney function continued to worsen, she was planned for CT-guided kidney biopsy on 12/15, but while she was at CT scan, she had an episode of cardiac arrest, she received CPR , unfortunately she had a very difficult airway multiple sclerosis for attempts were tried after which she had an emergency cricothyroidotomy. She most likely had prolonged period of anoxia leading to anoxic brain injury. Her mental status has not improved since then since this incidents she has been comatose. Acute kidney injury * likely secondary to ATN, nephrology input appreciated, continue hemodialysis Toxic metabolic encephalopathy * Due to kidney failure, treating underlying cause Type 2 diabetes * Continue sliding scale Hypertension * BP acceptable, continue current management Metabolic encephalopathy * Initially was most likely due to uremia * She had an MRI of her brain on 12/12 did not show any acute changes * However she's not had brain imaging since she had anoxic event on 12/15, awaiting a more stable tracheostomy prior to getting CT scan. 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 Hyperlipidemia Continue statin Hypothyroidism TSH within normal limits Continue Synthroid at current dose Obesity Hypoventilation/SHELIA continue vent DVT prophylaxis continue heparin Discussed with family and consultants Prognosis is poor. patient will likely need trache and PEG and SNF placement The high probability of a clinically significant, sudden or life threatening deterioration of the [pulmonary, cardiovascular, renal] system(s) required my full and direct attention, intervention and personal management. The aggregate critical care time was [33] minutes. This time is in addition to time spent performing reported procedures but includes the following: [] Data Review and interpretation [] Patient assessment and monitoring of vital signs [] Documentation [] Medication orders and management History Interval history: still comatose, non responsive, non verbal, no purposeful movement Hospitalist Physical - Physical exam Narrative exam: General.: Appears well, no distress, nontoxic HEENT: Moist mucous membranes, extraocular muscles intact, no lymphadenopathy Neck: supple Cardiac: S1-S2 heard Lungs: clear to auscultation bilaterally Abdomen: soft , nontender, nondistended, bowel sounds positive Extremities: no edema clubbing or cyanosis Skin: no rash or lesions Neurologic: comatose, pupils responsive to light, no purposeful movement, trached, not on sedation - Constitutional Vitals: Temp Pulse Resp BP Pulse Ox 99.2 F 72 17 136/72 99 12/18/16 08:00 12/18/16 09:56 12/18/16 09:00 12/18/16 09:56 12/18/16 09:56 General appearance: Present: mild distress, obese Results - Labs CBC & Chem 7: 12/17/16 13:58 12/18/16 07:52 Labs: Laboratory Last Values WBC 5.2 K/mm3 (4.5-11.0) 12/17/16 13:58 RBC 3.02 M/mm3 (3.65-5.03) L 12/17/16 13:58 Hgb 9.2 gm/dl (10.1-14.3) L 12/17/16 13:58 Hct 27.2 % (30.3-42.9) L 12/17/16 13:58 MCV 90 fl (79-97) 12/17/16 13:58 MCH 30 pg (28-32) 12/17/16 13:58 MCHC 34 % (30-34) 12/17/16 13:58 RDW 14.8 % (13.2-15.2) 12/17/16 13:58 Plt Count 100 K/mm3 (140-440) L 12/17/16 13:58 Lymph % (Auto) 16.1 % (13.4-35.0) 12/17/16 13:58 [place] % (Auto) 7.9 % (0.0-7.3) H 12/17/16 13:58 Eos % (Auto) 0.8 % (0.0-4.3) 12/17/16 13:58 Baso % (Auto) 0.2 % (0.0-1.8) 12/17/16 13:58 Lymph # 0.8 K/mm3 (1.2-5.4) L 12/17/16 13:58 [place] # 0.4 K/mm3 (0.0-0.8) 12/17/16 13:58 Eos # 0.0 K/mm3 (0.0-0.4) 12/17/16 13:58 Baso # 0.0 K/mm3 (0.0-0.1) 12/17/16 13:58 Seg Neutrophils % 75.0 % (40.0-70.0) H 12/17/16 13:58 Seg Neutrophils # 3.9 K/mm3 (1.8-7.7) 12/17/16 13:58 PT 17.6 Sec. (12.2-14.9) H 12/16/16 06:30 INR 1.45 (0.87-1.13) H 12/16/16 06:30 APTT 27.6 Sec. (24.2-36.6) 12/11/16 23:50 Thrombin Time 16.6 Sec. (15.1-19.6) 12/11/16 23:50 POC ABG pH 7.419 (7.35-7.45) 12/18/16 03:50 POC ABG pCO2 37.7 (35-45) 12/18/16 03:50 POC ABG pO2 91 (80-105) 12/18/16 03:50 POC ABG HCO3 24.4 12/18/16 03:50 POC ABG Total CO2 26 12/18/16 03:50 POC ABG O2 Sat 97 12/18/16 03:50 POC ABG Base Excess 0 12/18/16 03:50 FiO2 35 % 12/18/16 03:50 Sodium 145 mmol/L (137-145) 12/18/16 07:52 Potassium 2.9 mmol/L (3.6-5.0) L* 12/18/16 07:52 Chloride 101.8 mmol/L (98-107) 12/18/16 07:52 Carbon Dioxide 23 mmol/L (22-30) 12/18/16 07:52 Anion Gap 23 mmol/L 12/18/16 07:52 BUN 69 mg/dL (7-17) H 12/18/16 07:52 Creatinine 4.5 mg/dL (0.7-1.2) H 12/18/16 07:52 Estimated GFR 10 ml/min 12/18/16 07:52 BUN/Creatinine Ratio 15.33 % 12/18/16 07:52 Glucose 150 mg/dL (65-100) H 12/18/16 07:52 POC Glucose 170 (70-105) H 12/18/16 05:40 Lactic Acid 1.80 mmol/L (0.7-2.0) 12/15/16 Unknown Calcium 8.6 mg/dL (8.4-10.2) 12/18/16 07:52 Phosphorus 4.90 mg/dL (2.5-4.5) H D 12/16/16 06:30 Magnesium 1.60 mg/dL (1.7-2.3) L 12/16/16 06:30 Total Bilirubin 0.30 mg/dL (0.1-1.2) 12/17/16 07:24 Direct Bilirubin < 0.2 mg/dL (0-0.2) 12/16/16 15:30 Indirect Bilirubin 0.0 mg/dL 12/16/16 15:30 AST 40 units/L (5-40) 12/17/16 07:24 ALT 27 units/L (7-56) 12/17/16 07:24 Alkaline Phosphatase 155 units/L (35-129) H 12/17/16 07:24 Total Creatine Kinase 73 units/L (30-135) 12/15/16 04:35 Troponin T < 0.010 ng/mL (0.00-0.029) 12/11/16 23:50 Serum Total Protein 6.1 g/dL (6.1-8.1) 12/14/16 09:00 Total Protein 6.3 g/dL (6.3-8.2) 12/17/16 07:24 Albumin 2.2 g/dL (3.9-5) L 12/17/16 07:24 Albumin/Globulin Ratio 0.5 % 12/17/16 07:24 Zlqoy-2-Hlkuemqne 0.7 g/dL (0.2-0.3) H 12/14/16 09:00 Ycfsk-3-Byyvhmdsk 1.0 g/dL (0.5-0.9) H 12/14/16 09:00 Beta Globulins 0.7 g/dL (0.2-0.5) H 12/14/16 09:00 Gamma Globulins 0.7 g/dL (0.8-1.7) L 12/14/16 09:00 Abnorm Protein Band 1 see below 12/14/16 09:00 PEP Interpretation see below H 12/14/16 09:00 Triglycerides 166 mg/dL (2-149) H 12/13/16 03:39 Cholesterol 66 mg/dL (50-199) 12/13/16 03:39 LDL Cholesterol Direct 24 mg/dL (50-130) L 12/13/16 03:39 HDL Cholesterol 9 mg/dL (40-59) L 12/13/16 03:39 Cholesterol/HDL Ratio 7.33 % 12/13/16 03:39 TSH 2.640 mlU/mL (0.270-4.200) 12/12/16 15:23 Urine Color Yellow (Yellow) 12/12/16 21:30 Urine Turbidity Turbid (Clear) 12/12/16 21:30 Urine pH 5.0 (5.0-7.0) 12/12/16 21:30 Ur Specific [place] 1.015 (1.003-1.030) 12/12/16 21:30 Urine Protein 100 mg/dl mg/dL (Negative) 12/12/16 21:30 Urine Glucose (UA) Neg mg/dL (Negative) 12/12/16 21:30 Urine Ketones Neg mg/dL (Negative) 12/12/16 21:30 Urine Blood Lg (Negative) 12/12/16 21:30 Urine Nitrite Neg (Negative) 12/12/16 21:30 Urine Bilirubin Neg (Negative) 12/12/16 21:30 Urine Urobilinogen < 2.0 mg/dL (<2.0) 12/12/16 21:30 Ur Leukocyte Esterase Lg (Negative) 12/12/16 21:30 Urine WBC (Auto) > 182.0 /HPF (0.0-6.0) H 12/12/16 21:30 Urine RBC (Auto) 62.0 /HPF (0.0-6.0) 12/12/16 21:30 U Epithel Cells (Auto) 7.0 /HPF (0-13.0) 12/12/16 21:30 Urine Bacteria (Auto) 4+ /HPF (Negative) 12/12/16 21:30 Urine WBC Clumps 3+ /HPF 12/12/16 21:30 Calcium Oxalate Crystal 3+ 12/12/16 21:30 Urine Opiates Screen Presumptive negative 12/12/16 21:30 Urine Methadone Screen Presumptive negative 12/12/16 21:30 Ur Barbiturates Screen Presumptive negative 12/12/16 21:30 Ur Phencyclidine Scrn Presumptive negative 12/12/16 21:30 Ur Amphetamines Screen Presumptive negative 12/12/16 21:30 U Benzodiazepines Scrn Presumptive negative 12/12/16 21:30 Urine Cocaine Screen Presumptive negative 12/12/16 21:30 U Marijuana (THC) Screen Presumptive negative 12/12/16 21:30 Drugs of Abuse Note Disclamer 12/12/16 21:30 Proteinase 3 (PR3) Ab <1.0 AI (<1.0) 12/14/16 09:00 Myeloperoxidase Ab <1.0 AI (<1.0) 12/14/16 09:00 Glomerular Base Mem IgG <1.0 AI (<1.0) 12/14/16 09:00 Complement C3 206 mg/dL (90-180) H 12/14/16 09:00 Complement C4 56 mg/dL (16-47) H 12/14/16 09:00
[2016-12-18] MEDS: KCL 20MEQ/100ML 20 MEQ/100 ML BAG IV SCH ×2 (11:39→12:47)
--- NOTE | 2016-12-18 11:51 | Progress Note ---
Assessment and Plan 56 y/o female with acute respiratory failure secondary to cardiac arrest, acute renal failure now requiring HD and encephalopathy post arrest. 1. Aggressive replacement of potassium. This could be adding to abdominal issues. Will attempt feeds later today after trach placement. 2. Appreciate Neuro evaluation and recommendation. Will obtain Head CT hopeful later this evening after a more secure airway has been established. 3. Follow up renal recs: May need HD again today. 4. Micro back from urine, abx therapy changed. ID following 5. Abdomen remains distended. Will attempt feeds, if she does not tolerate may need to scan abdomen as well. 6. Prognosis remains guarded. Will correct electrolyte and other metabolic abnormalities to see if mental status improves. CCT 31 minutes. Subjective Date of service: 12/18/16 Interval history: No acute events. Mental status is unchanged. Going to OR for tracheostomy today. KUB from yesterday unchanged but found to have significantly low potassium this am. Renal has not evaluated yet. Remainder is negative. Objective Vital Signs - 12hr 12/18/16 12/18/16 12/18/16 00:00 00:30 01:00 Temperature 100.3 F H Pulse Rate 79 79 86 Pulse Rate [ 79 From Monitor] Respiratory 19 18 18 Rate Blood Pressure 140/69 141/71 144/67 O2 Sat by Pulse 96 96 95 Oximetry 12/18/16 12/18/16 12/18/16 01:30 02:00 02:30 Temperature Pulse Rate 84 87 80 Pulse Rate [ From Monitor] Respiratory 16 18 15 Rate Blood Pressure 143/76 143/76 140/70 O2 Sat by Pulse 96 95 96 Oximetry 12/18/16 12/18/16 12/18/16 03:01 03:30 03:36 Temperature Pulse Rate 86 73 80 Pulse Rate [ From Monitor] Respiratory 14 15 Rate Blood Pressure 127/39 129/64 129/64 O2 Sat by Pulse 95 96 99 Oximetry 12/18/16 12/18/16 12/18/16 03:40 04:00 04:30 Temperature 99.3 F Pulse Rate 84 85 Pulse Rate [ 84 From Monitor] Respiratory 15 16 Rate Blood Pressure 130/76 129/71 O2 Sat by Pulse 98 98 Oximetry 12/18/16 12/18/16 12/18/16 05:00 05:30 06:00 Temperature Pulse Rate 85 84 85 Pulse Rate [ From Monitor] Respiratory 18 15 15 Rate Blood Pressure 137/76 131/74 140/75 O2 Sat by Pulse 96 97 96 Oximetry 12/18/16 12/18/16 12/18/16 06:30 07:00 07:17 Temperature Pulse Rate 84 82 Pulse Rate [ 74 From Monitor] Respiratory 17 16 Rate Blood Pressure 140/75 136/74 O2 Sat by Pulse 97 96 99 Oximetry 12/18/16 12/18/16 12/18/16 07:30 07:33 08:00 Temperature 99.2 F Pulse Rate 81 74 80 Pulse Rate [ From Monitor] Respiratory 17 16 Rate Blood Pressure 136/75 127/72 O2 Sat by Pulse 95 96 Oximetry 12/18/16 12/18/16 12/18/16 08:30 09:00 09:56 Temperature Pulse Rate 80 81 72 Pulse Rate [ From Monitor] Respiratory 18 17 Rate Blood Pressure 136/72 140/71 136/72 O2 Sat by Pulse 95 96 99 Oximetry Constitutional: comatose Eyes: other (eyes are covered) ENT: oropharynx dry, other (large tongue, evidence of trauma to area) Neck: supple, other (large in circumference) Effort: normal Ascultation: Bilateral: clear Cardiovascular: regular rate and rhythm Gastrointestinal: hypoactive bowel sounds, other (distended, tympanic) Integumentary: normal Extremities: anasarca Neurologic: unable to assess CBC and BMP: 12/17/16 13:58 12/18/16 07:52 ABG, PT/INR, D-dimer: ABG POC ABG pH 7.419 (7.35-7.45) 12/18/16 03:50 POC ABG pCO2 37.7 (35-45) 12/18/16 03:50 POC ABG pO2 91 (80-105) 12/18/16 03:50 POC ABG HCO3 24.4 12/18/16 03:50 POC ABG Total CO2 26 12/18/16 03:50 POC ABG O2 Sat 97 12/18/16 03:50 PT/INR, D-dimer PT 17.6 Sec. (12.2-14.9) H 12/16/16 06:30 INR 1.45 (0.87-1.13) H 12/16/16 06:30 Abnormal lab findings: Abnormal Labs 12/12/16 12/12/16 12/12/16 08:06 12:27 15:23 WBC RBC Hgb Hct Plt Count Lymph % (Auto) [place] % (Auto) Lymph # Seg Neutrophils % Seg Neutrophils # PT INR POC ABG pH POC ABG pCO2 POC ABG pO2 Sodium Potassium Chloride Carbon Dioxide BUN Creatinine Glucose POC Glucose 299 H 281 H Lactic Acid 4.20 H* Calcium Phosphorus Magnesium AST Alkaline Phosphatase Total Protein Albumin Pkbcy-4-Uivxvijfe Azptc-2-Djedzzgwy Beta Globulins Gamma Globulins PEP Interpretation Triglycerides LDL Cholesterol Direct HDL Cholesterol Urine WBC (Auto) Complement C3 Complement C4 12/12/16 12/12/16 12/12/16 16:53 19:51 20:43 WBC RBC Hgb Hct Plt Count Lymph % (Auto) [place] % (Auto) Lymph # Seg Neutrophils % Seg Neutrophils # PT INR POC ABG pH POC ABG pCO2 POC ABG pO2 Sodium Potassium Chloride Carbon Dioxide BUN Creatinine Glucose POC Glucose 272 H 238 H Lactic Acid 2.90 H* Calcium Phosphorus Magnesium AST Alkaline Phosphatase Total Protein Albumin Pctnb-6-Gwdkftwml Bzyou-6-Opvwmcmhs Beta Globulins Gamma Globulins PEP Interpretation Triglycerides LDL Cholesterol Direct HDL Cholesterol Urine WBC (Auto) Complement C3 Complement C4 12/12/16 12/13/16 12/13/16 21:30 03:39 03:39 WBC RBC Hgb Hct Plt Count 118 L Lymph % (Auto) 7.4 L [place] % (Auto) 7.6 H Lymph # 0.7 L Seg Neutrophils % 84.7 H Seg Neutrophils # 8.4 H PT INR POC ABG pH POC ABG pCO2 POC ABG pO2 Sodium 133 L Potassium Chloride 96.5 L Carbon Dioxide 18 L BUN 49 H Creatinine 3.1 H D Glucose 173 H POC Glucose Lactic Acid Calcium 8.3 L D Phosphorus Magnesium 1.20 L AST Alkaline Phosphatase Total Protein Albumin 2.6 L Dnnjj-5-Uksornppo Sgpnv-0-Fguhwyycj Beta Globulins Gamma Globulins PEP Interpretation Triglycerides 166 H LDL Cholesterol Direct 24 L HDL Cholesterol 9 L Urine WBC (Auto) > 182.0 H Complement C3 Complement C4 12/13/16 12/13/16 12/13/16 07:41 11:53 17:23 WBC RBC Hgb Hct Plt Count Lymph % (Auto) [place] % (Auto) Lymph # Seg Neutrophils % Seg Neutrophils # PT INR POC ABG pH POC ABG pCO2 POC ABG pO2 Sodium Potassium Chloride Carbon Dioxide BUN Creatinine Glucose POC Glucose 222 H 221 H 247 H Lactic Acid Calcium Phosphorus Magnesium AST Alkaline Phosphatase Total Protein Albumin Nwldc-1-Ikefrmnrm Eskjx-9-Isyjxufit Beta Globulins Gamma Globulins PEP Interpretation Triglycerides LDL Cholesterol Direct HDL Cholesterol Urine WBC (Auto) Complement C3 Complement C4 12/13/16 12/14/16 12/14/16 21:29 03:35 03:35 WBC RBC 3.42 L Hgb Hct Plt Count 86 L Lymph % (Auto) 6.1 L [place] % (Auto) Lymph # 0.3 L Seg Neutrophils % 87.3 H Seg Neutrophils # PT INR POC ABG pH POC ABG pCO2 POC ABG pO2 Sodium 133 L Potassium 5.1 H Chloride 96.2 L Carbon Dioxide 17 L BUN 63 H Creatinine 4.2 H Glucose 136 H POC Glucose 185 H Lactic Acid Calcium 8.1 L Phosphorus Magnesium 1.30 L AST Alkaline Phosphatase Total Protein Albumin Ohnpq-9-Orltbmtio Undez-7-Fjowvqwlu Beta Globulins Gamma Globulins PEP Interpretation Triglycerides LDL Cholesterol Direct HDL Cholesterol Urine WBC (Auto) Complement C3 Complement C4 12/14/16 12/14/16 12/14/16 08:32 09:00 09:00 WBC RBC Hgb Hct Plt Count Lymph % (Auto) [place] % (Auto) Lymph # Seg Neutrophils % Seg Neutrophils # PT INR POC ABG pH POC ABG pCO2 POC ABG pO2 Sodium Potassium Chloride Carbon Dioxide BUN Creatinine Glucose POC Glucose 152 H Lactic Acid Calcium Phosphorus Magnesium AST Alkaline Phosphatase Total Protein Albumin Kergi-4-Rxyksadde Doptr-9-Tbjvymnao Beta Globulins Gamma Globulins PEP Interpretation Triglycerides LDL Cholesterol Direct HDL Cholesterol Urine WBC (Auto) Complement C3 206 H Complement C4 56 H 12/14/16 12/14/16 12/14/16 09:00 11:50 17:35 WBC RBC Hgb Hct Plt Count Lymph % (Auto) [place] % (Auto) Lymph # Seg Neutrophils % Seg Neutrophils # PT INR POC ABG pH POC ABG pCO2 POC ABG pO2 Sodium Potassium Chloride Carbon Dioxide BUN Creatinine Glucose POC Glucose 168 H 154 H Lactic Acid Calcium Phosphorus Magnesium AST Alkaline Phosphatase Total Protein Albumin 2.6 L Fpbgu-3-Dhajaheax 0.7 H Djaat-2-Ocfcfafch 1.0 H Beta Globulins 0.7 H Gamma Globulins 0.7 L PEP Interpretation see below H Triglycerides LDL Cholesterol Direct HDL Cholesterol Urine WBC (Auto) Complement C3 Complement C4 12/15/16 12/15/16 12/15/16 04:35 04:35 07:45 WBC 4.1 L RBC 3.39 L Hgb Hct Plt Count 84 L Lymph % (Auto) 8.8 L [place] % (Auto) Lymph # 0.4 L Seg Neutrophils % 83.6 H Seg Neutrophils # PT INR POC ABG pH POC ABG pCO2 POC ABG pO2 Sodium Potassium 6.0 H Chloride Carbon Dioxide 15 L BUN 79 H Creatinine 5.0 H Glucose POC Glucose 113 H Lactic Acid Calcium 8.0 L Phosphorus 6.70 H D Magnesium AST Alkaline Phosphatase Total Protein Albumin Sguaz-2-Xvgslcxtn Vsfnp-5-Uktfbcuju Beta Globulins Gamma Globulins PEP Interpretation Triglycerides LDL Cholesterol Direct HDL Cholesterol Urine WBC (Auto) Complement C3 Complement C4 12/15/16 12/15/16 12/15/16 08:13 15:20 23:53 WBC RBC Hgb Hct Plt Count Lymph % (Auto) [place] % (Auto) Lymph # Seg Neutrophils % Seg Neutrophils # PT INR POC ABG pH 7.156 L 7.228 L POC ABG pCO2 48.7 H POC ABG pO2 232 H Sodium Potassium Chloride Carbon Dioxide BUN Creatinine Glucose POC Glucose 232 H Lactic Acid Calcium Phosphorus Magnesium AST Alkaline Phosphatase Total Protein Albumin Wysfv-3-Iziupbsfv Yjbpb-6-Ugwktlqxy Beta Globulins Gamma Globulins PEP Interpretation Triglycerides LDL Cholesterol Direct HDL Cholesterol Urine WBC (Auto) Complement C3 Complement C4 12/15/16 12/15/16 12/15/16 Unknown Unknown Unknown WBC RBC 3.19 L Hgb 9.6 L Hct 29.8 L Plt Count 108 L Lymph % (Auto) 6.5 L [place] % (Auto) Lymph # 0.4 L Seg Neutrophils % 87.1 H Seg Neutrophils # PT 16.2 H INR 1.31 H POC ABG pH POC ABG pCO2 POC ABG pO2 Sodium Potassium Chloride Carbon Dioxide 16 L BUN 85 H Creatinine 4.9 H Glucose 205 H POC Glucose Lactic Acid Calcium 8.2 L Phosphorus Magnesium AST 77 H Alkaline Phosphatase 136 H Total Protein Albumin 2.3 L Emppe-2-Dktclqkbh Inigr-7-Irdyfdsoi Beta Globulins Gamma Globulins PEP Interpretation Triglycerides LDL Cholesterol Direct HDL Cholesterol Urine WBC (Auto) Complement C3 Complement C4 12/16/16 12/16/16 12/16/16 04:58 05:39 06:30 WBC 4.0 L RBC 3.23 L Hgb 9.6 L Hct 29.8 L Plt Count 110 L Lymph % (Auto) 11.3 L [place] % (Auto) Lymph # 0.5 L Seg Neutrophils % 81.2 H Seg Neutrophils # PT INR POC ABG pH POC ABG pCO2 POC ABG pO2 143 H Sodium Potassium Chloride Carbon Dioxide BUN Creatinine Glucose POC Glucose 201 H Lactic Acid Calcium Phosphorus Magnesium AST Alkaline Phosphatase Total Protein Albumin Uqqox-5-Pdiztzlza Wxntu-1-Tpyaxazhh Beta Globulins Gamma Globulins PEP Interpretation Triglycerides LDL Cholesterol Direct HDL Cholesterol Urine WBC (Auto) Complement C3 Complement C4 12/16/16 12/16/16 12/16/16 06:30 06:30 11:16 WBC RBC Hgb Hct Plt Count Lymph % (Auto) [place] % (Auto) Lymph # Seg Neutrophils % Seg Neutrophils # PT 17.6 H INR 1.45 H POC ABG pH POC ABG pCO2 POC ABG pO2 Sodium Potassium Chloride Carbon Dioxide 20 L BUN 57 H Creatinine 3.6 H Glucose 176 H POC Glucose 194 H Lactic Acid Calcium 8.1 L Phosphorus 4.90 H D Magnesium 1.60 L AST 46 H Alkaline Phosphatase 137 H Total Protein Albumin 2.3 L Sestd-8-Oasszhmyi Titoj-5-Papqqtloz Beta Globulins Gamma Globulins PEP Interpretation Triglycerides LDL Cholesterol Direct HDL Cholesterol Urine WBC (Auto) Complement C3 Complement C4 12/16/16 12/16/16 12/16/16 15:30 17:23 23:35 WBC RBC Hgb Hct Plt Count Lymph % (Auto) [place] % (Auto) Lymph # Seg Neutrophils % Seg Neutrophils # PT INR POC ABG pH POC ABG pCO2 POC ABG pO2 Sodium Potassium Chloride Carbon Dioxide BUN Creatinine Glucose POC Glucose 209 H 179 H Lactic Acid Calcium Phosphorus Magnesium AST 43 H Alkaline Phosphatase 156 H Total Protein 5.6 L Albumin 2.4 L Irzfv-3-Iitkefwet Sflrm-1-Cjvsypbid Beta Globulins Gamma Globulins PEP Interpretation Triglycerides LDL Cholesterol Direct HDL Cholesterol Urine WBC (Auto) Complement C3 Complement C4 12/17/16 12/17/16 12/17/16 03:38 05:18 07:24 WBC RBC Hgb Hct Plt Count Lymph % (Auto) [place] % (Auto) Lymph # Seg Neutrophils % Seg Neutrophils # PT INR POC ABG pH 7.485 H POC ABG pCO2 POC ABG pO2 Sodium Potassium 3.3 L Chloride Carbon Dioxide BUN 50 H Creatinine 3.1 H Glucose 181 H POC Glucose 201 H Lactic Acid Calcium Phosphorus Magnesium AST Alkaline Phosphatase 155 H Total Protein Albumin 2.2 L Lgcdo-2-Qwmnyjemp Zxofs-9-Tjzyoshqu Beta Globulins Gamma Globulins PEP Interpretation Triglycerides LDL Cholesterol Direct HDL Cholesterol Urine WBC (Auto) Complement C3 Complement C4 12/17/16 12/17/16 12/17/16 12:00 13:58 17:11 WBC RBC 3.02 L Hgb 9.2 L Hct 27.2 L Plt Count 100 L Lymph % (Auto) [place] % (Auto) 7.9 H Lymph # 0.8 L Seg Neutrophils % 75.0 H Seg Neutrophils # PT INR POC ABG pH POC ABG pCO2 POC ABG pO2 Sodium Potassium Chloride Carbon Dioxide BUN Creatinine Glucose POC Glucose 176 H 152 H Lactic Acid Calcium Phosphorus Magnesium AST Alkaline Phosphatase Total Protein Albumin Mfomj-1-Qdgagocye Ldeie-6-Idqhtqzhx Beta Globulins Gamma Globulins PEP Interpretation Triglycerides LDL Cholesterol Direct HDL Cholesterol Urine WBC (Auto) Complement C3 Complement C4 12/18/16 12/18/16 12/18/16 00:05 05:40 07:52 WBC RBC Hgb Hct Plt Count Lymph % (Auto) [place] % (Auto) Lymph # Seg Neutrophils % Seg Neutrophils # PT INR POC ABG pH POC ABG pCO2 POC ABG pO2 Sodium Potassium 2.9 L* Chloride Carbon Dioxide BUN 69 H Creatinine 4.5 H Glucose 150 H POC Glucose 155 H 170 H Lactic Acid Calcium Phosphorus Magnesium AST Alkaline Phosphatase Total Protein Albumin Ejfaz-5-Bhmoudbif Wlvpk-2-Lqglthgbt Beta Globulins Gamma Globulins PEP Interpretation Triglycerides LDL Cholesterol Direct HDL Cholesterol Urine WBC (Auto) Complement C3 Complement C4
[2016-12-18] MEDS ORDERED: PANCREAZE DR 10,500 UNIT FEEDTUBE PRN (12:14)
[2016-12-18] MEDS ORDERED: SIMPLE SYRUP FEEDTUBE PRN ×2 (12:14)
[2016-12-18] MEDS ORDERED: SODIUM BICARBONATE FEEDTUBE PRN (12:14)
--- NOTE | 2016-12-18 13:51 | Progress Note ---
Assessment and Plan 1. TAYA likely 2/2 ATN 2. Dehydration 3. Essential HTN 4. Type II Diabetes 5. Toxic/metabolic encephalopathy 6. Urinary tract infection/sepsis 7. Hypokalemia 8. AG metabolic acidosis/lactic acidosis /uremia Plan: Renal Biopsy report reviewed. She has ATN. Has started producing some urine but BUN/CR rises between dialysis Will do HD thrice weekly Replete potassium with dialysis Continue supportive care Maintain MAP>=65 Avoid nephrotoxins Subjective Date of service: 12/18/16 Interval history: Events reviewed. Remained unresponsive Objective - Exam Narrative Exam: General female/on ventilator/unresponsive with no sedation HEENT: swollen toungue, sluggishly reactive pupils Lungs: decreased BS, few breaths above the vent Heart: S1S2 RRR with no~murmur,~gallop or rub Abdomen: distended, BS present Ext: trace edema, no clubbing Neuro: Unresponsive to painful stimuli, Skin: Warm and dry, - Vital Signs Vital signs: Vital Signs - 12hr 12/18/16 12/18/16 12/18/16 02:00 02:30 03:01 Temperature Pulse Rate 87 80 86 Pulse Rate [ From Monitor] Respiratory 18 15 14 Rate Blood Pressure 143/76 140/70 127/39 O2 Sat by Pulse 95 96 95 Oximetry 12/18/16 12/18/16 12/18/16 03:30 03:36 03:40 Temperature 99.3 F Pulse Rate 73 80 Pulse Rate [ From Monitor] Respiratory 15 Rate Blood Pressure 129/64 129/64 O2 Sat by Pulse 96 99 Oximetry 12/18/16 12/18/16 12/18/16 04:00 04:30 05:00 Temperature Pulse Rate 84 85 85 Pulse Rate [ 84 From Monitor] Respiratory 15 16 18 Rate Blood Pressure 130/76 129/71 137/76 O2 Sat by Pulse 98 98 96 Oximetry 12/18/16 12/18/16 12/18/16 05:30 06:00 06:30 Temperature Pulse Rate 84 85 84 Pulse Rate [ From Monitor] Respiratory 15 15 17 Rate Blood Pressure 131/74 140/75 140/75 O2 Sat by Pulse 97 96 97 Oximetry 12/18/16 12/18/16 12/18/16 07:00 07:17 07:30 Temperature Pulse Rate 82 81 Pulse Rate [ 74 From Monitor] Respiratory 16 17 Rate Blood Pressure 136/74 136/75 O2 Sat by Pulse 96 99 95 Oximetry 12/18/16 12/18/16 12/18/16 07:33 08:00 08:30 Temperature 99.2 F Pulse Rate 74 80 80 Pulse Rate [ From Monitor] Respiratory 16 18 Rate Blood Pressure 127/72 136/72 O2 Sat by Pulse 96 95 Oximetry 12/18/16 12/18/16 12/18/16 09:00 09:56 12:00 Temperature 99.9 F H Pulse Rate 81 72 Pulse Rate [ From Monitor] Respiratory 17 Rate Blood Pressure 140/71 136/72 O2 Sat by Pulse 96 99 Oximetry - Lab 12/17/16 13:58 12/18/16 07:52 Most recent lab results Calcium 8.6 mg/dL (8.4-10.2) 12/18/16 07:52 Phosphorus 4.90 mg/dL (2.5-4.5) H D 12/16/16 06:30 Magnesium 2.10 mg/dL (1.7-2.3) 12/18/16 12:45
[2016-12-18] MEDS ORDERED: NACL 0.9% 1000 ML 1,000 ML ONE (14:19)
--- NOTE | 2016-12-18 14:49 | Post Operative Note ---
Pre-op diagnosis: Respiratory failure Post-op diagnosis: same Procedure: Tracheostomy Anesthesia: JOSH Surgeon: JAYNE HARDIN Implementation Analyst: TYESHA GARCIA Estimated blood loss: none Pathology: none Condition: critical Disposition: ICU
[2016-12-18] MEDS ORDERED: ZEMURON IV ONE (15:16)
--- NOTE | 2016-12-18 15:29 | Post Anesthesia Evaluation ---
- Post Anesthesia Evaluation Patient Participated: No Airway Patent: Yes Stable Respiratory Function: Yes Nausea/Vomiting: No Temp > 96.8F: Yes Pain Manageable: Yes Adequeate Hydration: Yes Anesthesia Complications: No Block Receding Appropriately: Not Applicable Patient on Ventilator: Yes
--- NOTE | 2016-12-18 15:29 | Anesthesia Day of Surgery ---
Anesthesia Day of Surgery - Day of Surgery Patient Examined: Yes Patient H&P Reviewed: Yes Patient is NPO: Yes
--- NOTE | 2016-12-18 19:27 | Operative Report ---
PREOPERATIVE DIAGNOSIS: Respiratory failure. POSTOPERATIVE DIAGNOSIS: Respiratory failure. PROCEDURE: Open tracheostomy. SURGEON: Robert Sinclair MD. BLENDER: ____ ANESTHESIA: General. EBL: Minimal. SPECIMEN: None. COMPLICATIONS: None. INDICATIONS: This is a 56-year-old female who has had an emergency cricoid done for respiratory arrest and we have been consulted to place a formal tracheostomy. OPERATIVE COURSE: The patient was brought to the operating room, identified, and placed in the supine position. General anesthesia was achieved. The neck and cricoid tube were then prepped and draped in usual manner. The prior wound was opened by removing a skin suture. The wound was then irrigated and explored. The cricoid was going in very high on the trachea. We spread the incision apart in size the isthmus of the thyroid and exposed the underlying tracheal rings. At this point, we made a small hole in the anterior trachea and using the small dilator from the [employer] dilator set, we were able to slide this through that hole along the side of the cricoid tube, which was in place. We then advanced a wire through this. We removed the dilator and then advanced the white stylet over the wire. We then removed the cricoid tube and advanced a #8 Shiley tracheostomy tube into the trach over the wire in a Seldinger technique. The cuff was inflated. We hooked it up to the ventilator, had good CO2 return and she maintained good ventilation. The trach was then anchored to the skin at the flange with suture and soft trach collar. We then reapproximated the skin from that prior incision with a running 3-0 Vicryl suture. Steri-Strips and Band-Aids were applied. She tolerated the procedure well without complications. JOB# [id number] BSBronwyn/NTS
[2016-12-18] MEDS: ASPIRIN PO SCH (19:30)
[2016-12-18] MEDS: LEVEMIR SUB-Q SCH (19:30)
[2016-12-18] MEDS: ZOCOR PO SCH (22:30)
[2016-12-19] MEDS: NOVOLOG SUB-Q SCH ×4 (00:48→18:59)
[2016-12-19 03:58] LABS: ISTAT Base Excess 4; ISTAT HCO3 27.8; ISTAT PCO2 39.5 (35-45); ISTAT PH 7.455 (7.35-7.45); ISTAT PO2 100 (80-105); ISTAT SO2 98; ISTAT TCO2 29
[2016-12-19] MEDS: HEPARIN SUB-Q SCH ×3 (06:35→21:25)
--- NOTE | 2016-12-19 08:43 | XRay Report ---
Portable chest: Respiratory failure. Comparison is made to the exam of December 18. The lungs are hypoventilated. There are no focal infiltrates appreciated but the lung markings are slightly compressed at the right lung base. The heart is grossly normal in size for poor inspiration. The endotracheal tube has been replaced by a tracheostomy tube. The left jugular central venous line and nasogastric tubes are unchanged and relatively good positions. Impressions: Persistent hypoventilation. No definite infiltrate. Well-positioned tracheostomy tube.
[2016-12-19] MEDS: PEPCID IV SCH (09:59)
[2016-12-19] MEDS: ASPIRIN PO SCH (09:59)
[2016-12-19] MEDS: ROCEPHIN/NS 2 GM/100 ML 2 GM/100 ML BAG IV SCH (10:00)
[2016-12-19] MEDS: LEVEMIR SUB-Q SCH (10:00)
--- NOTE | 2016-12-19 10:51 | Progress Note ---
Assessment and Plan 1. TAYA likely 2/2 ATN 2. Hypotension, resolved 3. Type II Diabetes 4. Anoxic encephalopathy 5. Urinary tract infection/sepsis 6. Hypokalemia, improved Plan: Renal Biopsy report reviewed. She has ATN. Has started producing some urine but BUN/CR rises between dialysis Will continue HD thrice weekly Monitor electrolytes closely Continue supportive care Maintain MAP>=65 Avoid nephrotoxins Subjective Date of service: 12/19/16 Interval history: Currently getting EEG done Off pressors Remains unresponsive Objective - Exam Narrative Exam: General female/on ventilator/unresponsive with no sedation HEENT: Eyes closed, sluggishly reactive pupils Lungs: Clear lungs BS, no wheezing Heart: RRR with no murmur,gallop or rub Abdomen: Soft, BS present Ext: trace edema, no clubbing Neuro: Grimacies to painful stimuli, Skin: Warm and dry - Vital Signs Vital signs: Vital Signs - 12hr 12/18/16 12/18/16 12/18/16 23:00 23:30 23:54 Temperature Pulse Rate 65 67 66 Pulse Rate [ From Monitor] Respiratory 16 17 Rate Blood Pressure 122/64 129/63 126/65 O2 Sat by Pulse 97 97 99 Oximetry O2 Sat by Pulse Oximetry [ Assessment] 12/18/16 12/19/16 12/19/16 23:59 00:00 00:30 Temperature 99.0 F Pulse Rate 70 81 Pulse Rate [ 70 From Monitor] Respiratory 15 14 Rate Blood Pressure 137/77 134/70 O2 Sat by Pulse 97 96 Oximetry O2 Sat by Pulse 97 Oximetry [ Assessment] 12/19/16 12/19/16 12/19/16 01:00 01:30 02:00 Temperature Pulse Rate 79 71 77 Pulse Rate [ From Monitor] Respiratory 16 16 17 Rate Blood Pressure 134/68 133/69 138/71 O2 Sat by Pulse 96 97 97 Oximetry O2 Sat by Pulse Oximetry [ Assessment] 12/19/16 12/19/16 12/19/16 02:30 03:00 03:10 Temperature Pulse Rate 72 79 66 Pulse Rate [ From Monitor] Respiratory 17 20 Rate Blood Pressure 137/69 143/75 137/69 O2 Sat by Pulse 95 97 99 Oximetry O2 Sat by Pulse Oximetry [ Assessment] 12/19/16 12/19/16 12/19/16 03:30 04:00 04:30 Temperature Pulse Rate 71 80 72 Pulse Rate [ 80 From Monitor] Respiratory 16 15 16 Rate Blood Pressure 138/75 139/74 129/66 O2 Sat by Pulse 96 96 97 Oximetry O2 Sat by Pulse Oximetry [ Assessment] 12/19/16 12/19/16 12/19/16 05:00 05:30 06:00 Temperature Pulse Rate 71 71 73 Pulse Rate [ From Monitor] Respiratory 15 16 19 Rate Blood Pressure 135/74 123/73 130/76 O2 Sat by Pulse 97 98 97 Oximetry O2 Sat by Pulse Oximetry [ Assessment] 12/19/16 12/19/16 12/19/16 06:30 07:00 07:30 Temperature 99.8 F H Pulse Rate 72 72 71 Pulse Rate [ From Monitor] Respiratory 16 16 18 Rate Blood Pressure 140/75 138/74 143/78 O2 Sat by Pulse 97 97 97 Oximetry O2 Sat by Pulse Oximetry [ Assessment] 12/19/16 12/19/16 12/19/16 08:00 08:30 09:27 Temperature Pulse Rate 63 64 72 Pulse Rate [ 63 From Monitor] Respiratory 16 14 Rate Blood Pressure 127/69 145/72 145/79 O2 Sat by Pulse 95 96 99 Oximetry O2 Sat by Pulse Oximetry [ Assessment] 12/19/16 09:42 Temperature Pulse Rate Pulse Rate [ From Monitor] Respiratory Rate Blood Pressure O2 Sat by Pulse Oximetry O2 Sat by Pulse 99 Oximetry [ Assessment] - Lab 12/17/16 13:58 12/18/16 18:25 Most recent lab results Calcium 8.6 mg/dL (8.4-10.2) 12/18/16 07:52 Phosphorus 4.90 mg/dL (2.5-4.5) H D 12/16/16 06:30 Magnesium 2.10 mg/dL (1.7-2.3) 12/18/16 12:45
--- NOTE | 2016-12-19 10:59 | Progress Note ---
Assessment and Plan 56 y/o female with acute respiratory failure secondary to cardiac arrest, acute renal failure now requiring HD and encephalopathy post arrest. 1. Check labs today. 2. Follow up head CT and EEG results along with neuro recs. 3. Follow up renal recs, may need 4. Micro back from urine, abx therapy changed. ID following, now has loose stools. Will follow. 5. Abdomen remains distended. CT scan of abdomen while obtaining head CT 6. Prognosis remains guarded. Will correct electrolyte and other metabolic abnormalities to see if mental status improves. CCT 31 minutes. Subjective Date of service: 12/19/16 Interval history: No acute events. Had trach placed in OR yesterday. Mental status is still unchanged. Objective Vital Signs - 12hr 12/18/16 12/18/16 12/18/16 23:00 23:30 23:54 Temperature Pulse Rate 65 67 66 Pulse Rate [ From Monitor] Respiratory 16 17 Rate Blood Pressure 122/64 129/63 126/65 O2 Sat by Pulse 97 97 99 Oximetry O2 Sat by Pulse Oximetry [ Assessment] 12/18/16 12/19/16 12/19/16 23:59 00:00 00:30 Temperature 99.0 F Pulse Rate 70 81 Pulse Rate [ 70 From Monitor] Respiratory 15 14 Rate Blood Pressure 137/77 134/70 O2 Sat by Pulse 97 96 Oximetry O2 Sat by Pulse 97 Oximetry [ Assessment] 12/19/16 12/19/16 12/19/16 01:00 01:30 02:00 Temperature Pulse Rate 79 71 77 Pulse Rate [ From Monitor] Respiratory 16 16 17 Rate Blood Pressure 134/68 133/69 138/71 O2 Sat by Pulse 96 97 97 Oximetry O2 Sat by Pulse Oximetry [ Assessment] 12/19/16 12/19/16 12/19/16 02:30 03:00 03:10 Temperature Pulse Rate 72 79 66 Pulse Rate [ From Monitor] Respiratory 17 20 Rate Blood Pressure 137/69 143/75 137/69 O2 Sat by Pulse 95 97 99 Oximetry O2 Sat by Pulse Oximetry [ Assessment] 12/19/16 12/19/16 12/19/16 03:30 04:00 04:30 Temperature Pulse Rate 71 80 72 Pulse Rate [ 80 From Monitor] Respiratory 16 15 16 Rate Blood Pressure 138/75 139/74 129/66 O2 Sat by Pulse 96 96 97 Oximetry O2 Sat by Pulse Oximetry [ Assessment] 12/19/16 12/19/16 12/19/16 05:00 05:30 06:00 Temperature Pulse Rate 71 71 73 Pulse Rate [ From Monitor] Respiratory 15 16 19 Rate Blood Pressure 135/74 123/73 130/76 O2 Sat by Pulse 97 98 97 Oximetry O2 Sat by Pulse Oximetry [ Assessment] 12/19/16 12/19/16 12/19/16 06:30 07:00 07:30 Temperature 99.8 F H Pulse Rate 72 72 71 Pulse Rate [ From Monitor] Respiratory 16 16 18 Rate Blood Pressure 140/75 138/74 143/78 O2 Sat by Pulse 97 97 97 Oximetry O2 Sat by Pulse Oximetry [ Assessment] 12/19/16 12/19/16 12/19/16 08:00 08:30 09:27 Temperature Pulse Rate 63 64 72 Pulse Rate [ 63 From Monitor] Respiratory 16 14 Rate Blood Pressure 127/69 145/72 145/79 O2 Sat by Pulse 95 96 99 Oximetry O2 Sat by Pulse Oximetry [ Assessment] 12/19/16 09:42 Temperature Pulse Rate Pulse Rate [ From Monitor] Respiratory Rate Blood Pressure O2 Sat by Pulse Oximetry O2 Sat by Pulse 99 Oximetry [ Assessment] Constitutional: comatose Eyes: other (eyes are covered) ENT: oropharynx dry, other (trach midline) Neck: supple, other (large in circumference) Effort: normal Ascultation: Bilateral: clear Cardiovascular: regular rate and rhythm Gastrointestinal: hypoactive bowel sounds, other (distended, tympanic) Integumentary: normal Extremities: anasarca Neurologic: unable to assess CBC and BMP: 12/17/16 13:58 12/18/16 18:25 ABG, PT/INR, D-dimer: ABG POC ABG pH 7.455 (7.35-7.45) H 12/19/16 03:04 POC ABG pCO2 39.5 (35-45) 12/19/16 03:04 POC ABG pO2 100 (80-105) 12/19/16 03:04 POC ABG HCO3 27.8 12/19/16 03:04 POC ABG Total CO2 29 12/19/16 03:04 POC ABG O2 Sat 98 12/19/16 03:04 PT/INR, D-dimer PT 17.6 Sec. (12.2-14.9) H 12/16/16 06:30 INR 1.45 (0.87-1.13) H 12/16/16 06:30 Abnormal lab findings: Abnormal Labs 12/12/16 12/12/16 12/12/16 08:06 12:27 15:23 WBC RBC Hgb Hct Plt Count Lymph % (Auto) [place] % (Auto) Lymph # Seg Neutrophils % Seg Neutrophils # PT INR POC ABG pH POC ABG pCO2 POC ABG pO2 Sodium Potassium Chloride Carbon Dioxide BUN Creatinine Glucose POC Glucose 299 H 281 H Lactic Acid 4.20 H* Calcium Phosphorus Magnesium AST Alkaline Phosphatase Total Protein Albumin Xbnnx-7-Fppamzgkq Kqqjq-3-Gpzxkcqvi Beta Globulins Gamma Globulins PEP Interpretation Triglycerides LDL Cholesterol Direct HDL Cholesterol Urine WBC (Auto) Complement C3 Complement C4 12/12/16 12/12/16 12/12/16 16:53 19:51 20:43 WBC RBC Hgb Hct Plt Count Lymph % (Auto) [place] % (Auto) Lymph # Seg Neutrophils % Seg Neutrophils # PT INR POC ABG pH POC ABG pCO2 POC ABG pO2 Sodium Potassium Chloride Carbon Dioxide BUN Creatinine Glucose POC Glucose 272 H 238 H Lactic Acid 2.90 H* Calcium Phosphorus Magnesium AST Alkaline Phosphatase Total Protein Albumin Svvmj-6-Zhqjgtrdu Lbxmf-0-Chcjvelgi Beta Globulins Gamma Globulins PEP Interpretation Triglycerides LDL Cholesterol Direct HDL Cholesterol Urine WBC (Auto) Complement C3 Complement C4 12/12/16 12/13/16 12/13/16 21:30 03:39 03:39 WBC RBC Hgb Hct Plt Count 118 L Lymph % (Auto) 7.4 L [place] % (Auto) 7.6 H Lymph # 0.7 L Seg Neutrophils % 84.7 H Seg Neutrophils # 8.4 H PT INR POC ABG pH POC ABG pCO2 POC ABG pO2 Sodium 133 L Potassium Chloride 96.5 L Carbon Dioxide 18 L BUN 49 H Creatinine 3.1 H D Glucose 173 H POC Glucose Lactic Acid Calcium 8.3 L D Phosphorus Magnesium 1.20 L AST Alkaline Phosphatase Total Protein Albumin 2.6 L Yzgex-6-Odyblzyfe Jernb-1-Imbtzduic Beta Globulins Gamma Globulins PEP Interpretation Triglycerides 166 H LDL Cholesterol Direct 24 L HDL Cholesterol 9 L Urine WBC (Auto) > 182.0 H Complement C3 Complement C4 12/13/16 12/13/16 12/13/16 07:41 11:53 17:23 WBC RBC Hgb Hct Plt Count Lymph % (Auto) [place] % (Auto) Lymph # Seg Neutrophils % Seg Neutrophils # PT INR POC ABG pH POC ABG pCO2 POC ABG pO2 Sodium Potassium Chloride Carbon Dioxide BUN Creatinine Glucose POC Glucose 222 H 221 H 247 H Lactic Acid Calcium Phosphorus Magnesium AST Alkaline Phosphatase Total Protein Albumin Advim-0-Kdwshbodl Grzcp-8-Enzkqwsik Beta Globulins Gamma Globulins PEP Interpretation Triglycerides LDL Cholesterol Direct HDL Cholesterol Urine WBC (Auto) Complement C3 Complement C4 12/13/16 12/14/16 12/14/16 21:29 03:35 03:35 WBC RBC 3.42 L Hgb Hct Plt Count 86 L Lymph % (Auto) 6.1 L [place] % (Auto) Lymph # 0.3 L Seg Neutrophils % 87.3 H Seg Neutrophils # PT INR POC ABG pH POC ABG pCO2 POC ABG pO2 Sodium 133 L Potassium 5.1 H Chloride 96.2 L Carbon Dioxide 17 L BUN 63 H Creatinine 4.2 H Glucose 136 H POC Glucose 185 H Lactic Acid Calcium 8.1 L Phosphorus Magnesium 1.30 L AST Alkaline Phosphatase Total Protein Albumin Vartm-1-Qenwfnsru Vehrx-1-Pzlsuqohm Beta Globulins Gamma Globulins PEP Interpretation Triglycerides LDL Cholesterol Direct HDL Cholesterol Urine WBC (Auto) Complement C3 Complement C4 12/14/16 12/14/16 12/14/16 08:32 09:00 09:00 WBC RBC Hgb Hct Plt Count Lymph % (Auto) [place] % (Auto) Lymph # Seg Neutrophils % Seg Neutrophils # PT INR POC ABG pH POC ABG pCO2 POC ABG pO2 Sodium Potassium Chloride Carbon Dioxide BUN Creatinine Glucose POC Glucose 152 H Lactic Acid Calcium Phosphorus Magnesium AST Alkaline Phosphatase Total Protein Albumin Ahvwr-2-Kgvjftsla Iqies-4-Npvrvpxwc Beta Globulins Gamma Globulins PEP Interpretation Triglycerides LDL Cholesterol Direct HDL Cholesterol Urine WBC (Auto) Complement C3 206 H Complement C4 56 H 12/14/16 12/14/16 12/14/16 09:00 11:50 17:35 WBC RBC Hgb Hct Plt Count Lymph % (Auto) [place] % (Auto) Lymph # Seg Neutrophils % Seg Neutrophils # PT INR POC ABG pH POC ABG pCO2 POC ABG pO2 Sodium Potassium Chloride Carbon Dioxide BUN Creatinine Glucose POC Glucose 168 H 154 H Lactic Acid Calcium Phosphorus Magnesium AST Alkaline Phosphatase Total Protein Albumin 2.6 L Tgjnb-8-Dvnytcyhh 0.7 H Vowam-2-Kezafgesu 1.0 H Beta Globulins 0.7 H Gamma Globulins 0.7 L PEP Interpretation see below H Triglycerides LDL Cholesterol Direct HDL Cholesterol Urine WBC (Auto) Complement C3 Complement C4 12/15/16 12/15/16 12/15/16 04:35 04:35 07:45 WBC 4.1 L RBC 3.39 L Hgb Hct Plt Count 84 L Lymph % (Auto) 8.8 L [place] % (Auto) Lymph # 0.4 L Seg Neutrophils % 83.6 H Seg Neutrophils # PT INR POC ABG pH POC ABG pCO2 POC ABG pO2 Sodium Potassium 6.0 H Chloride Carbon Dioxide 15 L BUN 79 H Creatinine 5.0 H Glucose POC Glucose 113 H Lactic Acid Calcium 8.0 L Phosphorus 6.70 H D Magnesium AST Alkaline Phosphatase Total Protein Albumin Vybuf-3-Fjukdpmaw Lncdl-7-Plfjxbbiv Beta Globulins Gamma Globulins PEP Interpretation Triglycerides LDL Cholesterol Direct HDL Cholesterol Urine WBC (Auto) Complement C3 Complement C4 12/15/16 12/15/16 12/15/16 08:13 15:20 23:53 WBC RBC Hgb Hct Plt Count Lymph % (Auto) [place] % (Auto) Lymph # Seg Neutrophils % Seg Neutrophils # PT INR POC ABG pH 7.156 L 7.228 L POC ABG pCO2 48.7 H POC ABG pO2 232 H Sodium Potassium Chloride Carbon Dioxide BUN Creatinine Glucose POC Glucose 232 H Lactic Acid Calcium Phosphorus Magnesium AST Alkaline Phosphatase Total Protein Albumin Fkfxy-5-Wllsqmvyj Hoico-5-Yzblszurs Beta Globulins Gamma Globulins PEP Interpretation Triglycerides LDL Cholesterol Direct HDL Cholesterol Urine WBC (Auto) Complement C3 Complement C4 12/15/16 12/15/16 12/15/16 Unknown Unknown Unknown WBC RBC 3.19 L Hgb 9.6 L Hct 29.8 L Plt Count 108 L Lymph % (Auto) 6.5 L [place] % (Auto) Lymph # 0.4 L Seg Neutrophils % 87.1 H Seg Neutrophils # PT 16.2 H INR 1.31 H POC ABG pH POC ABG pCO2 POC ABG pO2 Sodium Potassium Chloride Carbon Dioxide 16 L BUN 85 H Creatinine 4.9 H Glucose 205 H POC Glucose Lactic Acid Calcium 8.2 L Phosphorus Magnesium AST 77 H Alkaline Phosphatase 136 H Total Protein Albumin 2.3 L Dydtv-9-Fqoyktdqv Jwddf-1-Oesftfips Beta Globulins Gamma Globulins PEP Interpretation Triglycerides LDL Cholesterol Direct HDL Cholesterol Urine WBC (Auto) Complement C3 Complement C4 12/16/16 12/16/16 12/16/16 04:58 05:39 06:30 WBC 4.0 L RBC 3.23 L Hgb 9.6 L Hct 29.8 L Plt Count 110 L Lymph % (Auto) 11.3 L [place] % (Auto) Lymph # 0.5 L Seg Neutrophils % 81.2 H Seg Neutrophils # PT INR POC ABG pH POC ABG pCO2 POC ABG pO2 143 H Sodium Potassium Chloride Carbon Dioxide BUN Creatinine Glucose POC Glucose 201 H Lactic Acid Calcium Phosphorus Magnesium AST Alkaline Phosphatase Total Protein Albumin Aizmu-1-Fjoxuvuwq Ahanm-7-Eszckyuzn Beta Globulins Gamma Globulins PEP Interpretation Triglycerides LDL Cholesterol Direct HDL Cholesterol Urine WBC (Auto) Complement C3 Complement C4 12/16/16 12/16/16 12/16/16 06:30 06:30 11:16 WBC RBC Hgb Hct Plt Count Lymph % (Auto) [place] % (Auto) Lymph # Seg Neutrophils % Seg Neutrophils # PT 17.6 H INR 1.45 H POC ABG pH POC ABG pCO2 POC ABG pO2 Sodium Potassium Chloride Carbon Dioxide 20 L BUN 57 H Creatinine 3.6 H Glucose 176 H POC Glucose 194 H Lactic Acid Calcium 8.1 L Phosphorus 4.90 H D Magnesium 1.60 L AST 46 H Alkaline Phosphatase 137 H Total Protein Albumin 2.3 L Ayjug-5-Hwsivxkhk Kbvby-3-Fuiidngyg Beta Globulins Gamma Globulins PEP Interpretation Triglycerides LDL Cholesterol Direct HDL Cholesterol Urine WBC (Auto) Complement C3 Complement C4 12/16/16 12/16/16 12/16/16 15:30 17:23 23:35 WBC RBC Hgb Hct Plt Count Lymph % (Auto) [place] % (Auto) Lymph # Seg Neutrophils % Seg Neutrophils # PT INR POC ABG pH POC ABG pCO2 POC ABG pO2 Sodium Potassium Chloride Carbon Dioxide BUN Creatinine Glucose POC Glucose 209 H 179 H Lactic Acid Calcium Phosphorus Magnesium AST 43 H Alkaline Phosphatase 156 H Total Protein 5.6 L Albumin 2.4 L Yqsdx-6-Bjzpcwoif Fsugh-7-Xcyzffmjj Beta Globulins Gamma Globulins PEP Interpretation Triglycerides LDL Cholesterol Direct HDL Cholesterol Urine WBC (Auto) Complement C3 Complement C4 12/17/16 12/17/16 12/17/16 03:38 05:18 07:24 WBC RBC Hgb Hct Plt Count Lymph % (Auto) [place] % (Auto) Lymph # Seg Neutrophils % Seg Neutrophils # PT INR POC ABG pH 7.485 H POC ABG pCO2 POC ABG pO2 Sodium Potassium 3.3 L Chloride Carbon Dioxide BUN 50 H Creatinine 3.1 H Glucose 181 H POC Glucose 201 H Lactic Acid Calcium Phosphorus Magnesium AST Alkaline Phosphatase 155 H Total Protein Albumin 2.2 L Oklbi-4-Fgmcwpgyc Ylysg-0-Djjxhjslp Beta Globulins Gamma Globulins PEP Interpretation Triglycerides LDL Cholesterol Direct HDL Cholesterol Urine WBC (Auto) Complement C3 Complement C4 12/17/16 12/17/16 12/17/16 12:00 13:58 17:11 WBC RBC 3.02 L Hgb 9.2 L Hct 27.2 L Plt Count 100 L Lymph % (Auto) [place] % (Auto) 7.9 H Lymph # 0.8 L Seg Neutrophils % 75.0 H Seg Neutrophils # PT INR POC ABG pH POC ABG pCO2 POC ABG pO2 Sodium Potassium Chloride Carbon Dioxide BUN Creatinine Glucose POC Glucose 176 H 152 H Lactic Acid Calcium Phosphorus Magnesium AST Alkaline Phosphatase Total Protein Albumin Jbydu-8-Vsmzezbus Kiecq-6-Vfdkmwytn Beta Globulins Gamma Globulins PEP Interpretation Triglycerides LDL Cholesterol Direct HDL Cholesterol Urine WBC (Auto) Complement C3 Complement C4 12/18/16 12/18/16 12/18/16 00:05 05:40 07:52 WBC RBC Hgb Hct Plt Count Lymph % (Auto) [place] % (Auto) Lymph # Seg Neutrophils % Seg Neutrophils # PT INR POC ABG pH POC ABG pCO2 POC ABG pO2 Sodium Potassium 2.9 L* Chloride Carbon Dioxide BUN 69 H Creatinine 4.5 H Glucose 150 H POC Glucose 155 H 170 H Lactic Acid Calcium Phosphorus Magnesium AST Alkaline Phosphatase Total Protein Albumin Pgxoo-3-Hddxkrusi Dkvzt-5-Beiuxwuop Beta Globulins Gamma Globulins PEP Interpretation Triglycerides LDL Cholesterol Direct HDL Cholesterol Urine WBC (Auto) Complement C3 Complement C4 12/18/16 12/18/16 12/18/16 12:21 15:10 18:43 WBC RBC Hgb Hct Plt Count Lymph % (Auto) [place] % (Auto) Lymph # Seg Neutrophils % Seg Neutrophils # PT INR POC ABG pH POC ABG pCO2 POC ABG pO2 Sodium Potassium Chloride Carbon Dioxide BUN Creatinine Glucose POC Glucose 165 H 130 H 176 H Lactic Acid Calcium Phosphorus Magnesium AST Alkaline Phosphatase Total Protein Albumin Hvovy-4-Rmcikwjtt Wcvok-5-Niwaodkrd Beta Globulins Gamma Globulins PEP Interpretation Triglycerides LDL Cholesterol Direct HDL Cholesterol Urine WBC (Auto) Complement C3 Complement C4 12/18/16 12/19/16 12/19/16 23:33 03:04 05:47 WBC RBC Hgb Hct Plt Count Lymph % (Auto) [place] % (Auto) Lymph # Seg Neutrophils % Seg Neutrophils # PT INR POC ABG pH 7.455 H POC ABG pCO2 POC ABG pO2 Sodium Potassium Chloride Carbon Dioxide BUN Creatinine Glucose POC Glucose 174 H 160 H Lactic Acid Calcium Phosphorus Magnesium AST Alkaline Phosphatase Total Protein Albumin Ohugc-4-Gkgvzjave Lzhjy-2-Ezgteirrc Beta Globulins Gamma Globulins PEP Interpretation Triglycerides LDL Cholesterol Direct HDL Cholesterol Urine WBC (Auto) Complement C3 Complement C4
[2016-12-19 11:15] LABS: Hemoglobin 9.2 gm/dl (10.1-14.3); Mean Corpuscular HGB Conc 33 % (30-34); Mean Corpuscular Hemoglobin 30 pg (28-32); Mean Corpuscular Volume 92 fl (79-97); Platelet Count 126 K/mm3 (140-440); Red Blood Count 3.06 M/mm3 (3.65-5.03); Red Cell Distribution Width 14.8 % (13.2-15.2); White Blood Count 6.9 K/mm3 (4.5-11.0)
--- NOTE | 2016-12-19 11:22 | Progress Note ---
Assessment and Plan Assessment and plan: 56-year-old woman with a past medical history of [id number]-[id number] diabetes , hypertension, chronic intermittent left middle toe infection presented to the hospital with right arm weakness and slurred speech. Patient also has history of frequent falls, chronic left knee pain and osteoarthritis and was planned for knee replacement. She was admitted to the hospital for stroke workup, she was found to have acute kidney injury on admission. Her kidney function continued to worsen, she was planned for CT-guided kidney biopsy on 12/15, but while she was at CT scan, she had an episode of cardiac arrest, she received CPR , unfortunately she had a very difficult airway multiple sclerosis for attempts were tried after which she had an emergency cricothyroidotomy. She most likely had prolonged period of anoxia leading to anoxic brain injury. Her mental status has not improved since then since this incidents she has been comatose. Acute kidney injury * likely secondary to ATN, nephrology input appreciated, continue hemodialysis as needed Toxic metabolic encephalopathy * Due to kidney failure, treating underlying cause Type 2 diabetes * Continue sliding scale Hypertension * BP acceptable, continue current management Metabolic encephalopathy * She had an MRI of her brain on 12/12 did not show any acute changes * However she's not had brain imaging since she had anoxic event on 12/15, for repeat CT head today. Highly suspect anoxic encephalopathy, neurology input appreciated Sepsis secondary to UTI * Continue rocephin, till 12/27 Gram negative septicemia/sepsis * blood culture growing Klebsiella PNA, which is sensitive to Ceftriaxone * continue rocephin till 12/27 Acute respiratory failure, on MV greater than 96 hours * initially had emergent cricothyroidotomy on 12/15, and then sp tracheostomy on 12/18 * Continue ventilator Abdominal Distension * fup CT abdomen Cardiogenic shock * Has been weaned off pressors Hyperkalemia Resolved with dialysis Hypokalemia Replete judiciously, given that she is dialysis dependent Hypomagnesemia Was replaced . Hyperlipidemia Continue statin Hypothyroidism TSH within normal limits Continue Synthroid at current dose Obesity Hypoventilation/SHELIA continue vent DVT prophylaxis continue heparin Discussed with family and consultants Prognosis is poor. patient will likely need trache and PEG and SNF placement The high probability of a clinically significant, sudden or life threatening deterioration of the [pulmonary, cardiovascular, renal] system(s) required my full and direct attention, intervention and personal management. The aggregate critical care time was [33] minutes. This time is in addition to time spent performing reported procedures but includes the following: [] Data Review and interpretation [] Patient assessment and monitoring of vital signs [] Documentation [] Medication orders and management History Interval history: still comatose, non responsive, non verbal, no purposeful movement Hospitalist Physical - Physical exam Narrative exam: General.: Appears well, no distress, nontoxic HEENT: Moist mucous membranes, extraocular muscles intact, no lymphadenopathy Neck: supple Cardiac: S1-S2 heard Lungs: clear to auscultation bilaterally Abdomen: soft , nontender, nondistended, bowel sounds positive Extremities: no edema clubbing or cyanosis Skin: no rash or lesions Neurologic: comatose, pupils responsive to light, no purposeful movement, trached, not on sedation - Constitutional Vitals: Temp Pulse Resp BP Pulse Ox 99.8 F H 72 14 145/79 99 12/19/16 07:00 12/19/16 09:27 12/19/16 08:30 12/19/16 09:27 12/19/16 09:42 General appearance: Present: obese Results - Labs CBC & Chem 7: 12/19/16 10:40 12/19/16 10:40 Labs: Laboratory Last Values WBC 6.9 K/mm3 (4.5-11.0) 12/19/16 10:40 RBC 3.06 M/mm3 (3.65-5.03) L 12/19/16 10:40 Hgb 9.2 gm/dl (10.1-14.3) L 12/19/16 10:40 Hct 28.0 % (30.3-42.9) L 12/19/16 10:40 MCV 92 fl (79-97) 12/19/16 10:40 MCH 30 pg (28-32) 12/19/16 10:40 MCHC 33 % (30-34) 12/19/16 10:40 RDW 14.8 % (13.2-15.2) 12/19/16 10:40 Plt Count 126 K/mm3 (140-440) L 12/19/16 10:40 Lymph % (Auto) 16.1 % (13.4-35.0) 12/17/16 13:58 [place] % (Auto) 7.9 % (0.0-7.3) H 12/17/16 13:58 Eos % (Auto) 0.8 % (0.0-4.3) 12/17/16 13:58 Baso % (Auto) 0.2 % (0.0-1.8) 12/17/16 13:58 Lymph # 0.8 K/mm3 (1.2-5.4) L 12/17/16 13:58 [place] # 0.4 K/mm3 (0.0-0.8) 12/17/16 13:58 Eos # 0.0 K/mm3 (0.0-0.4) 12/17/16 13:58 Baso # 0.0 K/mm3 (0.0-0.1) 12/17/16 13:58 Seg Neutrophils % 75.0 % (40.0-70.0) H 12/17/16 13:58 Seg Neutrophils # 3.9 K/mm3 (1.8-7.7) 12/17/16 13:58 PT 17.6 Sec. (12.2-14.9) H 12/16/16 06:30 INR 1.45 (0.87-1.13) H 12/16/16 06:30 APTT 27.6 Sec. (24.2-36.6) 12/11/16 23:50 Thrombin Time 16.6 Sec. (15.1-19.6) 12/11/16 23:50 POC ABG pH 7.455 (7.35-7.45) H 12/19/16 03:04 POC ABG pCO2 39.5 (35-45) 12/19/16 03:04 POC ABG pO2 100 (80-105) 12/19/16 03:04 POC ABG HCO3 27.8 12/19/16 03:04 POC ABG Total CO2 29 12/19/16 03:04 POC ABG O2 Sat 98 12/19/16 03:04 POC ABG Base Excess 4 12/19/16 03:04 FiO2 35 % 12/19/16 03:04 Sodium 145 mmol/L (137-145) 12/18/16 07:52 Potassium 3.6 mmol/L (3.6-5.0) D 12/18/16 18:25 Chloride 101.8 mmol/L (98-107) 12/18/16 07:52 Carbon Dioxide 23 mmol/L (22-30) 12/18/16 07:52 Anion Gap 23 mmol/L 12/18/16 07:52 BUN 69 mg/dL (7-17) H 12/18/16 07:52 Creatinine 4.5 mg/dL (0.7-1.2) H 12/18/16 07:52 Estimated GFR 10 ml/min 12/18/16 07:52 BUN/Creatinine Ratio 15.33 % 12/18/16 07:52 Glucose 150 mg/dL (65-100) H 12/18/16 07:52 POC Glucose 160 (70-105) H 12/19/16 05:47 Lactic Acid 1.80 mmol/L (0.7-2.0) 12/15/16 Unknown Calcium 8.6 mg/dL (8.4-10.2) 12/18/16 07:52 Phosphorus 4.90 mg/dL (2.5-4.5) H D 12/16/16 06:30 Magnesium 2.10 mg/dL (1.7-2.3) 12/18/16 12:45 Total Bilirubin 0.30 mg/dL (0.1-1.2) 12/17/16 07:24 Direct Bilirubin < 0.2 mg/dL (0-0.2) 12/16/16 15:30 Indirect Bilirubin 0.0 mg/dL 12/16/16 15:30 AST 40 units/L (5-40) 12/17/16 07:24 ALT 27 units/L (7-56) 12/17/16 07:24 Alkaline Phosphatase 155 units/L (35-129) H 12/17/16 07:24 Total Creatine Kinase 73 units/L (30-135) 12/15/16 04:35 Troponin T < 0.010 ng/mL (0.00-0.029) 12/11/16 23:50 Serum Total Protein 6.1 g/dL (6.1-8.1) 12/14/16 09:00 Total Protein 6.3 g/dL (6.3-8.2) 12/17/16 07:24 Albumin 2.2 g/dL (3.9-5) L 12/17/16 07:24 Albumin/Globulin Ratio 0.5 % 12/17/16 07:24 Hzvjr-0-Ykzhnllby 0.7 g/dL (0.2-0.3) H 12/14/16 09:00 Owtnu-8-Segqqhzka 1.0 g/dL (0.5-0.9) H 12/14/16 09:00 Beta Globulins 0.7 g/dL (0.2-0.5) H 12/14/16 09:00 Gamma Globulins 0.7 g/dL (0.8-1.7) L 12/14/16 09:00 Abnorm Protein Band 1 see below 12/14/16 09:00 PEP Interpretation see below H 12/14/16 09:00 Triglycerides 166 mg/dL (2-149) H 12/13/16 03:39 Cholesterol 66 mg/dL (50-199) 12/13/16 03:39 LDL Cholesterol Direct 24 mg/dL (50-130) L 12/13/16 03:39 HDL Cholesterol 9 mg/dL (40-59) L 12/13/16 03:39 Cholesterol/HDL Ratio 7.33 % 12/13/16 03:39 TSH 2.640 mlU/mL (0.270-4.200) 12/12/16 15:23 Urine Color Yellow (Yellow) 12/12/16 21:30 Urine Turbidity Turbid (Clear) 12/12/16 21:30 Urine pH 5.0 (5.0-7.0) 12/12/16 21:30 Ur Specific [place] 1.015 (1.003-1.030) 12/12/16 21:30 Urine Protein 100 mg/dl mg/dL (Negative) 12/12/16 21:30 Urine Glucose (UA) Neg mg/dL (Negative) 12/12/16 21:30 Urine Ketones Neg mg/dL (Negative) 12/12/16 21:30 Urine Blood Lg (Negative) 12/12/16 21:30 Urine Nitrite Neg (Negative) 12/12/16 21:30 Urine Bilirubin Neg (Negative) 12/12/16 21:30 Urine Urobilinogen < 2.0 mg/dL (<2.0) 12/12/16 21:30 Ur Leukocyte Esterase Lg (Negative) 12/12/16 21:30 Urine WBC (Auto) > 182.0 /HPF (0.0-6.0) H 12/12/16 21:30 Urine RBC (Auto) 62.0 /HPF (0.0-6.0) 12/12/16 21:30 U Epithel Cells (Auto) 7.0 /HPF (0-13.0) 12/12/16 21:30 Urine Bacteria (Auto) 4+ /HPF (Negative) 12/12/16 21:30 Urine WBC Clumps 3+ /HPF 12/12/16 21:30 Calcium Oxalate Crystal 3+ 12/12/16 21:30 Urine Opiates Screen Presumptive negative 12/12/16 21:30 Urine Methadone Screen Presumptive negative 12/12/16 21:30 Ur Barbiturates Screen Presumptive negative 12/12/16 21:30 Ur Phencyclidine Scrn Presumptive negative 12/12/16 21:30 Ur Amphetamines Screen Presumptive negative 12/12/16 21:30 U Benzodiazepines Scrn Presumptive negative 12/12/16 21:30 Urine Cocaine Screen Presumptive negative 12/12/16 21:30 U Marijuana (THC) Screen Presumptive negative 12/12/16 21:30 Drugs of Abuse Note Disclamer 12/12/16 21:30 Proteinase 3 (PR3) Ab <1.0 AI (<1.0) 12/14/16 09:00 Myeloperoxidase Ab <1.0 AI (<1.0) 12/14/16 09:00 Glomerular Base Mem IgG <1.0 AI (<1.0) 12/14/16 09:00 Complement C3 206 mg/dL (90-180) H 12/14/16 09:00 Complement C4 56 mg/dL (16-47) H 12/14/16 09:00 Hepatitis A IgM Ab Non-reactive (NonReactive) 12/18/16 18:30 Hep Bs Antigen Non-reactive (Negative) 12/18/16 18:30 Hep B Core IgM Ab Non-reactive (NonReactive) 12/18/16 18:30 Hepatitis C Antibody Non-reactive (NonReactive) 12/18/16 18:30 Renal Biopsy Scanned into [facility] 12/15/16 13:43
[2016-12-19 11:33] LABS: BUN/Creatinine Ratio 16.17; Calcium 8.8 mg/dL (8.4-10.2); Chloride 103.3 mmol/L (98-107); Magnesium 1.8 mg/dL (1.7-2.3); Phosphorous 5.1 mg/dL (2.5-4.5)
[2016-12-19] MEDS ORDERED: MAGNESIUM SULFATE IV ONE (13:34)
--- NOTE | 2016-12-19 13:49 | Cat Scan Report ---
CT HEAD WITHOUT CONTRAST: HISTORY: Comatose, mental status changes, assess for diffuse anoxic injury. TECHNIQUE: Sequential noncontrast CT images in 2.5 mm intervals. COMPARISON: 12/12/16. Findings: The brain parenchyma attenuation and its oakley-white interface are within normal limits. Mild cortical volume loss and minimal nonspecific chronic white matter changes are again noted and unchanged since 12/12/16 exam. There is no evidence for global brain edema, mass effect, sulcal effacement or hemorrhage. Ventricular size is within normal limits and unchanged. The posterior fossa and contents remain unremarkable. The mastoid air cells and visualized portions of the sinuses are normal. IMPRESSION: Essentially unremarkable noncontrast CT brain. No significant change can be appreciated since 12/12/16 exam. No diffuse anoxic injury is confidently identified on noncontrast CT. I am familiar with this patient. Given the clinical history, I would recommend a followup MRI of brain to assess for more subtle findings of anoxic injury. These findings were discussed with Dr. Shepherd in the ICU.
[2016-12-19] MEDS ORDERED: KCL 20MEQ/100ML 20 MEQ/100 ML BAG IV ONE ×2 (14:00→15:30)
[2016-12-19] MEDS ORDERED: MAGNESIUM SULFATE 2GM/50ML 2 GM/50 ML BAG IV ONE (14:00)
--- NOTE | 2016-12-19 14:01 | Cat Scan Report ---
CT OF THE ABDOMEN AND PELVIS WITHOUT CONTRAST HISTORY: Abdominal distention. TECHNIQUE: Helical CT without contrast. Sagittal and coronal reformatted images. FINDINGS: No comparison. Heart size is borderline. There is a trace left pleural effusion measuring less than 1 cm in thickness. Minor bibasilar atelectatic changes are noted in the lower lung zones. No consolidation or pneumothorax. The liver is normal size and contour. No obvious mass or parenchymal disease. The biliary system and pancreas are unremarkable. There is mild to moderate splenomegaly measuring 17.8 cm in length. No varicosities are identified. There is trace ascites in the left paracolic gutter. Bilateral nephrolithiasis is identified. A 7 mm calyceal stone is identified at the superior pole of the right kidney. Approximately 4 calyceal stones are identified in the left kidney with the largest measuring 1.2 cm at the inferior pole. There is also a stone in the left renal pelvis which measures 1.4 x 1.0 cm in axial plane. No associated hydronephrosis. There is no evidence for renal cystic disease or mass. There is trace gas in the subcapsular region at the superior pole left kidney of uncertain significance. A nasogastric tube terminates in the distal stomach. There is no evidence for focal bowel wall thickening, obstruction or free air. There is moderate fecal material the distal colon. Normal appendix. The uterus and adnexa are unremarkable. The bladder is decompressed with a [place] catheter. There is moderate thoracolumbar spondylosis but no evidence for suspicious bony lesion or acute fracture. Visualized lower ribs are intact. IMPRESSION: No acute abdominal process is appreciated. No evidence for bowel obstruction. Bilateral nephrolithiasis as outlined above. No evidence for hydronephrosis. Borderline heart size and trace left pleural effusion. Moderate splenomegaly of uncertain etiology.
--- NOTE | 2016-12-19 15:10 | Progress Note ---
Subjective Date of service: 12/19/16 Principal diagnosis: Coma Interval history: NEUROLOGY PROGRESS NOTE: No significant change in patients clinical neuro status. Still follows no commands. Has Right gaze preference today. Slight furrowing of forehead on pinch of either arm.- EEG: showed only generalized theta slowing waxing and waning. No focal abn, No Sz activity. 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 DISCUSSED THE ABOVE WITH THE PATIENTS , CHARISMA, BY PHONE ([phone]); Reviewed the sequence of events at her arrest, her former and todays neurologic exam as well as CT and EEG findings today. He voiced understanding that she will not "wake up" in a week and that this may take several weeks. He voiced understanding that she may never be able to return home as he asked this specific question. RECC: 1. Repeat head CT next Thursday, and get head MRI next Thursday 2. Go from there. Call as needed. Discussed with primary team. Objective - Vital Sign Vital Signs - 12hr 12/19/16 12/19/16 12/19/16 03:10 03:30 04:00 Temperature Pulse Rate 66 71 80 Pulse Rate [ 80 From Monitor] Respiratory 16 15 Rate Blood Pressure 137/69 138/75 139/74 O2 Sat by Pulse 99 96 96 Oximetry O2 Sat by Pulse Oximetry [ Assessment] 12/19/16 12/19/16 12/19/16 04:30 05:00 05:30 Temperature Pulse Rate 72 71 71 Pulse Rate [ From Monitor] Respiratory 16 15 16 Rate Blood Pressure 129/66 135/74 123/73 O2 Sat by Pulse 97 97 98 Oximetry O2 Sat by Pulse Oximetry [ Assessment] 12/19/16 12/19/16 12/19/16 06:00 06:30 07:00 Temperature 99.8 F H Pulse Rate 73 72 72 Pulse Rate [ From Monitor] Respiratory 19 16 16 Rate Blood Pressure 130/76 140/75 138/74 O2 Sat by Pulse 97 97 97 Oximetry O2 Sat by Pulse Oximetry [ Assessment] 12/19/16 12/19/16 12/19/16 07:30 08:00 08:30 Temperature Pulse Rate 71 63 64 Pulse Rate [ 63 From Monitor] Respiratory 18 16 14 Rate Blood Pressure 143/78 127/69 145/72 O2 Sat by Pulse 97 95 96 Oximetry O2 Sat by Pulse Oximetry [ Assessment] 12/19/16 12/19/16 12/19/16 09:27 09:42 11:42 Temperature Pulse Rate 72 79 Pulse Rate [ From Monitor] Respiratory Rate Blood Pressure 145/79 137/76 O2 Sat by Pulse 99 99 Oximetry O2 Sat by Pulse 99 Oximetry [ Assessment] 12/19/16 12/19/16 11:44 12:00 Temperature 98.6 F Pulse Rate 79 Pulse Rate [ From Monitor] Respiratory Rate Blood Pressure 137/76 O2 Sat by Pulse 99 Oximetry O2 Sat by Pulse Oximetry [ Assessment] - Laboratory Findings CBC and BMP: 12/19/16 10:40 12/19/16 10:40 Abnormal Lab Findings: Abnormal Labs 12/12/16 12/12/16 12/12/16 08:06 12:27 15:23 WBC RBC Hgb Hct Plt Count Lymph % (Auto) Dundy % (Auto) Lymph # Seg Neutrophils % Seg Neutrophils # PT INR POC ABG pH POC ABG pCO2 POC ABG pO2 Sodium Potassium Chloride Carbon Dioxide BUN Creatinine Glucose POC Glucose 299 H 281 H Lactic Acid 4.20 H* Calcium Phosphorus Magnesium AST Alkaline Phosphatase Total Protein Albumin Pfuqs-8-Vokabiyjb Vjfxa-2-Pfpntjgrw Beta Globulins Gamma Globulins PEP Interpretation Triglycerides LDL Cholesterol Direct HDL Cholesterol Urine WBC (Auto) Complement C3 Complement C4 12/12/16 12/12/16 12/12/16 16:53 19:51 20:43 WBC RBC Hgb Hct Plt Count Lymph % (Auto) Dundy % (Auto) Lymph # Seg Neutrophils % Seg Neutrophils # PT INR POC ABG pH POC ABG pCO2 POC ABG pO2 Sodium Potassium Chloride Carbon Dioxide BUN Creatinine Glucose POC Glucose 272 H 238 H Lactic Acid 2.90 H* Calcium Phosphorus Magnesium AST Alkaline Phosphatase Total Protein Albumin Bhipb-9-Rjsvrtlnt Mvvit-7-Iyiljdikf Beta Globulins Gamma Globulins PEP Interpretation Triglycerides LDL Cholesterol Direct HDL Cholesterol Urine WBC (Auto) Complement C3 Complement C4 12/12/16 12/13/16 12/13/16 21:30 03:39 03:39 WBC RBC Hgb Hct Plt Count 118 L Lymph % (Auto) 7.4 L Dundy % (Auto) 7.6 H Lymph # 0.7 L Seg Neutrophils % 84.7 H Seg Neutrophils # 8.4 H PT INR POC ABG pH POC ABG pCO2 POC ABG pO2 Sodium 133 L Potassium Chloride 96.5 L Carbon Dioxide 18 L BUN 49 H Creatinine 3.1 H D Glucose 173 H POC Glucose Lactic Acid Calcium 8.3 L D Phosphorus Magnesium 1.20 L AST Alkaline Phosphatase Total Protein Albumin 2.6 L Ssypw-8-Dxtopjlhk Rfegg-7-Zbzbqkzvp Beta Globulins Gamma Globulins PEP Interpretation Triglycerides 166 H LDL Cholesterol Direct 24 L HDL Cholesterol 9 L Urine WBC (Auto) > 182.0 H Complement C3 Complement C4 12/13/16 12/13/16 12/13/16 07:41 11:53 17:23 WBC RBC Hgb Hct Plt Count Lymph % (Auto) Dundy % (Auto) Lymph # Seg Neutrophils % Seg Neutrophils # PT INR POC ABG pH POC ABG pCO2 POC ABG pO2 Sodium Potassium Chloride Carbon Dioxide BUN Creatinine Glucose POC Glucose 222 H 221 H 247 H Lactic Acid Calcium Phosphorus Magnesium AST Alkaline Phosphatase Total Protein Albumin Zxpun-3-Dlzqgsxdo Ogmaj-9-Phndramtv Beta Globulins Gamma Globulins PEP Interpretation Triglycerides LDL Cholesterol Direct HDL Cholesterol Urine WBC (Auto) Complement C3 Complement C4 12/13/16 12/14/16 12/14/16 21:29 03:35 03:35 WBC RBC 3.42 L Hgb Hct Plt Count 86 L Lymph % (Auto) 6.1 L Dundy % (Auto) Lymph # 0.3 L Seg Neutrophils % 87.3 H Seg Neutrophils # PT INR POC ABG pH POC ABG pCO2 POC ABG pO2 Sodium 133 L Potassium 5.1 H Chloride 96.2 L Carbon Dioxide 17 L BUN 63 H Creatinine 4.2 H Glucose 136 H POC Glucose 185 H Lactic Acid Calcium 8.1 L Phosphorus Magnesium 1.30 L AST Alkaline Phosphatase Total Protein Albumin Boitc-7-Qbnefmjhh Mivka-2-Ccbfeimpa Beta Globulins Gamma Globulins PEP Interpretation Triglycerides LDL Cholesterol Direct HDL Cholesterol Urine WBC (Auto) Complement C3 Complement C4 12/14/16 12/14/16 12/14/16 08:32 09:00 09:00 WBC RBC Hgb Hct Plt Count Lymph % (Auto) Dundy % (Auto) Lymph # Seg Neutrophils % Seg Neutrophils # PT INR POC ABG pH POC ABG pCO2 POC ABG pO2 Sodium Potassium Chloride Carbon Dioxide BUN Creatinine Glucose POC Glucose 152 H Lactic Acid Calcium Phosphorus Magnesium AST Alkaline Phosphatase Total Protein Albumin Nftga-7-Swanzquxh Jtfqt-6-Oawlffvrb Beta Globulins Gamma Globulins PEP Interpretation Triglycerides LDL Cholesterol Direct HDL Cholesterol Urine WBC (Auto) Complement C3 206 H Complement C4 56 H 12/14/16 12/14/16 12/14/16 09:00 11:50 17:35 WBC RBC Hgb Hct Plt Count Lymph % (Auto) Dundy % (Auto) Lymph # Seg Neutrophils % Seg Neutrophils # PT INR POC ABG pH POC ABG pCO2 POC ABG pO2 Sodium Potassium Chloride Carbon Dioxide BUN Creatinine Glucose POC Glucose 168 H 154 H Lactic Acid Calcium Phosphorus Magnesium AST Alkaline Phosphatase Total Protein Albumin 2.6 L Uyoee-3-Gwdauioio 0.7 H Dkojs-9-Jvhcsjtlk 1.0 H Beta Globulins 0.7 H Gamma Globulins 0.7 L PEP Interpretation see below H Triglycerides LDL Cholesterol Direct HDL Cholesterol Urine WBC (Auto) Complement C3 Complement C4 12/15/16 12/15/16 12/15/16 04:35 04:35 07:45 WBC 4.1 L RBC 3.39 L Hgb Hct Plt Count 84 L Lymph % (Auto) 8.8 L Dundy % (Auto) Lymph # 0.4 L Seg Neutrophils % 83.6 H Seg Neutrophils # PT INR POC ABG pH POC ABG pCO2 POC ABG pO2 Sodium Potassium 6.0 H Chloride Carbon Dioxide 15 L BUN 79 H Creatinine 5.0 H Glucose POC Glucose 113 H Lactic Acid Calcium 8.0 L Phosphorus 6.70 H D Magnesium AST Alkaline Phosphatase Total Protein Albumin Ffuox-9-Toutkxkrt Uhcue-7-Kkdfzlnnl Beta Globulins Gamma Globulins PEP Interpretation Triglycerides LDL Cholesterol Direct HDL Cholesterol Urine WBC (Auto) Complement C3 Complement C4 12/15/16 12/15/16 12/15/16 08:13 15:20 23:53 WBC RBC Hgb Hct Plt Count Lymph % (Auto) Dundy % (Auto) Lymph # Seg Neutrophils % Seg Neutrophils # PT INR POC ABG pH 7.156 L 7.228 L POC ABG pCO2 48.7 H POC ABG pO2 232 H Sodium Potassium Chloride Carbon Dioxide BUN Creatinine Glucose POC Glucose 232 H Lactic Acid Calcium Phosphorus Magnesium AST Alkaline Phosphatase Total Protein Albumin Efxqa-3-Uultkwecv Fhdek-5-Keapgxblj Beta Globulins Gamma Globulins PEP Interpretation Triglycerides LDL Cholesterol Direct HDL Cholesterol Urine WBC (Auto) Complement C3 Complement C4 12/15/16 12/15/16 12/15/16 Unknown Unknown Unknown WBC RBC 3.19 L Hgb 9.6 L Hct 29.8 L Plt Count 108 L Lymph % (Auto) 6.5 L Dundy % (Auto) Lymph # 0.4 L Seg Neutrophils % 87.1 H Seg Neutrophils # PT 16.2 H INR 1.31 H POC ABG pH POC ABG pCO2 POC ABG pO2 Sodium Potassium Chloride Carbon Dioxide 16 L BUN 85 H Creatinine 4.9 H Glucose 205 H POC Glucose Lactic Acid Calcium 8.2 L Phosphorus Magnesium AST 77 H Alkaline Phosphatase 136 H Total Protein Albumin 2.3 L Xzgyo-5-Ejsexyxsk Krrew-1-Mgnqdjpqe Beta Globulins Gamma Globulins PEP Interpretation Triglycerides LDL Cholesterol Direct HDL Cholesterol Urine WBC (Auto) Complement C3 Complement C4 12/16/16 12/16/16 12/16/16 04:58 05:39 06:30 WBC 4.0 L RBC 3.23 L Hgb 9.6 L Hct 29.8 L Plt Count 110 L Lymph % (Auto) 11.3 L Dundy % (Auto) Lymph # 0.5 L Seg Neutrophils % 81.2 H Seg Neutrophils # PT INR POC ABG pH POC ABG pCO2 POC ABG pO2 143 H Sodium Potassium Chloride Carbon Dioxide BUN Creatinine Glucose POC Glucose 201 H Lactic Acid Calcium Phosphorus Magnesium AST Alkaline Phosphatase Total Protein Albumin Vywry-5-Gwdizjrbu Azwrw-9-Tqjnwcgbq Beta Globulins Gamma Globulins PEP Interpretation Triglycerides LDL Cholesterol Direct HDL Cholesterol Urine WBC (Auto) Complement C3 Complement C4 12/16/16 12/16/16 12/16/16 06:30 06:30 11:16 WBC RBC Hgb Hct Plt Count Lymph % (Auto) Dundy % (Auto) Lymph # Seg Neutrophils % Seg Neutrophils # PT 17.6 H INR 1.45 H POC ABG pH POC ABG pCO2 POC ABG pO2 Sodium Potassium Chloride Carbon Dioxide 20 L BUN 57 H Creatinine 3.6 H Glucose 176 H POC Glucose 194 H Lactic Acid Calcium 8.1 L Phosphorus 4.90 H D Magnesium 1.60 L AST 46 H Alkaline Phosphatase 137 H Total Protein Albumin 2.3 L Gqrzc-4-Ijxcifkok Majeq-3-Bdjuiyybc Beta Globulins Gamma Globulins PEP Interpretation Triglycerides LDL Cholesterol Direct HDL Cholesterol Urine WBC (Auto) Complement C3 Complement C4 12/16/16 12/16/16 12/16/16 15:30 17:23 23:35 WBC RBC Hgb Hct Plt Count Lymph % (Auto) Dundy % (Auto) Lymph # Seg Neutrophils % Seg Neutrophils # PT INR POC ABG pH POC ABG pCO2 POC ABG pO2 Sodium Potassium Chloride Carbon Dioxide BUN Creatinine Glucose POC Glucose 209 H 179 H Lactic Acid Calcium Phosphorus Magnesium AST 43 H Alkaline Phosphatase 156 H Total Protein 5.6 L Albumin 2.4 L Idjso-8-Ukykuqodj Swtjo-2-Luaomdluo Beta Globulins Gamma Globulins PEP Interpretation Triglycerides LDL Cholesterol Direct HDL Cholesterol Urine WBC (Auto) Complement C3 Complement C4 12/17/16 12/17/16 12/17/16 03:38 05:18 07:24 WBC RBC Hgb Hct Plt Count Lymph % (Auto) Dundy % (Auto) Lymph # Seg Neutrophils % Seg Neutrophils # PT INR POC ABG pH 7.485 H POC ABG pCO2 POC ABG pO2 Sodium Potassium 3.3 L Chloride Carbon Dioxide BUN 50 H Creatinine 3.1 H Glucose 181 H POC Glucose 201 H Lactic Acid Calcium Phosphorus Magnesium AST Alkaline Phosphatase 155 H Total Protein Albumin 2.2 L Uairw-6-Ipttqmkwt Jjehv-3-Cuidfpxcu Beta Globulins Gamma Globulins PEP Interpretation Triglycerides LDL Cholesterol Direct HDL Cholesterol Urine WBC (Auto) Complement C3 Complement C4 12/17/16 12/17/16 12/17/16 12:00 13:58 17:11 WBC RBC 3.02 L Hgb 9.2 L Hct 27.2 L Plt Count 100 L Lymph % (Auto) Dundy % (Auto) 7.9 H Lymph # 0.8 L Seg Neutrophils % 75.0 H Seg Neutrophils # PT INR POC ABG pH POC ABG pCO2 POC ABG pO2 Sodium Potassium Chloride Carbon Dioxide BUN Creatinine Glucose POC Glucose 176 H 152 H Lactic Acid Calcium Phosphorus Magnesium AST Alkaline Phosphatase Total Protein Albumin Avglj-8-Vbiteqgzn Gfvpg-9-Jqdptwook Beta Globulins Gamma Globulins PEP Interpretation Triglycerides LDL Cholesterol Direct HDL Cholesterol Urine WBC (Auto) Complement C3 Complement C4 12/18/16 12/18/16 12/18/16 00:05 05:40 07:52 WBC RBC Hgb Hct Plt Count Lymph % (Auto) Dundy % (Auto) Lymph # Seg Neutrophils % Seg Neutrophils # PT INR POC ABG pH POC ABG pCO2 POC ABG pO2 Sodium Potassium 2.9 L* Chloride Carbon Dioxide BUN 69 H Creatinine 4.5 H Glucose 150 H POC Glucose 155 H 170 H Lactic Acid Calcium Phosphorus Magnesium AST Alkaline Phosphatase Total Protein Albumin Kcebn-5-Nufsfrrkc Fltcy-5-Pacwoxqxf Beta Globulins Gamma Globulins PEP Interpretation Triglycerides LDL Cholesterol Direct HDL Cholesterol Urine WBC (Auto) Complement C3 Complement C4 12/18/16 12/18/16 12/18/16 12:21 15:10 18:43 WBC RBC Hgb Hct Plt Count Lymph % (Auto) Dundy % (Auto) Lymph # Seg Neutrophils % Seg Neutrophils # PT INR POC ABG pH POC ABG pCO2 POC ABG pO2 Sodium Potassium Chloride Carbon Dioxide BUN Creatinine Glucose POC Glucose 165 H 130 H 176 H Lactic Acid Calcium Phosphorus Magnesium AST Alkaline Phosphatase Total Protein Albumin Cfpiq-9-Kihoqyokm Xlpkg-0-Mumgqcvbd Beta Globulins Gamma Globulins PEP Interpretation Triglycerides LDL Cholesterol Direct HDL Cholesterol Urine WBC (Auto) Complement C3 Complement C4 12/18/16 12/19/16 12/19/16 23:33 03:04 05:47 WBC RBC Hgb Hct Plt Count Lymph % (Auto) Dundy % (Auto) Lymph # Seg Neutrophils % Seg Neutrophils # PT INR POC ABG pH 7.455 H POC ABG pCO2 POC ABG pO2 Sodium Potassium Chloride Carbon Dioxide BUN Creatinine Glucose POC Glucose 174 H 160 H Lactic Acid Calcium Phosphorus Magnesium AST Alkaline Phosphatase Total Protein Albumin Vbztl-2-Xgyhfaabi Mqvaq-9-Pwikuihco Beta Globulins Gamma Globulins PEP Interpretation Triglycerides LDL Cholesterol Direct HDL Cholesterol Urine WBC (Auto) Complement C3 Complement C4 12/19/16 12/19/16 12/19/16 10:40 10:40 13:00 WBC RBC 3.06 L Hgb 9.2 L Hct 28.0 L Plt Count 126 L Lymph % (Auto) Dundy % (Auto) Lymph # Seg Neutrophils % Seg Neutrophils # PT INR POC ABG pH POC ABG pCO2 POC ABG pO2 Sodium Potassium 3.0 L Chloride Carbon Dioxide BUN 55 H Creatinine 3.4 H Glucose 161 H POC Glucose 173 H Lactic Acid Calcium Phosphorus 5.10 H Magnesium AST Alkaline Phosphatase Total Protein Albumin Ichpc-9-Ntcvnxgtl Krmxu-6-Eonrorpdo Beta Globulins Gamma Globulins PEP Interpretation Triglycerides LDL Cholesterol Direct HDL Cholesterol Urine WBC (Auto) Complement C3 Complement C4
--- NOTE | 2016-12-19 15:55 | Progress Note ---
Assessment and Plan s/p trache, resp failure. No further tx needed. Will sign off. Subjective Date of service: 12/19/16 Patient Reports: Positive: afebrile, other (no acute events noted. s/p trache) Objective Vital Signs - 12hr 12/19/16 12/19/16 12/19/16 04:00 04:30 05:00 Temperature Pulse Rate 80 72 71 Pulse Rate [ 80 From Monitor] Respiratory 15 16 15 Rate Blood Pressure 139/74 129/66 135/74 O2 Sat by Pulse 96 97 97 Oximetry O2 Sat by Pulse Oximetry [ Assessment] 12/19/16 12/19/16 12/19/16 05:30 06:00 06:30 Temperature Pulse Rate 71 73 72 Pulse Rate [ From Monitor] Respiratory 16 19 16 Rate Blood Pressure 123/73 130/76 140/75 O2 Sat by Pulse 98 97 97 Oximetry O2 Sat by Pulse Oximetry [ Assessment] 12/19/16 12/19/16 12/19/16 07:00 07:30 08:00 Temperature 99.8 F H Pulse Rate 72 71 63 Pulse Rate [ 63 From Monitor] Respiratory 16 18 16 Rate Blood Pressure 138/74 143/78 127/69 O2 Sat by Pulse 97 97 95 Oximetry O2 Sat by Pulse Oximetry [ Assessment] 12/19/16 12/19/16 12/19/16 08:30 09:27 09:42 Temperature Pulse Rate 64 72 Pulse Rate [ From Monitor] Respiratory 14 Rate Blood Pressure 145/72 145/79 O2 Sat by Pulse 96 99 Oximetry O2 Sat by Pulse 99 Oximetry [ Assessment] 12/19/16 12/19/16 12/19/16 11:42 11:44 12:00 Temperature 98.6 F Pulse Rate 79 79 Pulse Rate [ From Monitor] Respiratory Rate Blood Pressure 137/76 137/76 O2 Sat by Pulse 99 99 Oximetry O2 Sat by Pulse Oximetry [ Assessment] 12/19/16 15:32 Temperature Pulse Rate 71 Pulse Rate [ From Monitor] Respiratory Rate Blood Pressure 123/69 O2 Sat by Pulse 100 Oximetry O2 Sat by Pulse Oximetry [ Assessment] - General physical appearance no distress - Neck other (trache in place. clean dry and intact) - Respiratory normal respiratory effort - Labs 12/19/16 10:40 12/19/16 10:40 Diabetes panel 12/18/16 12/19/16 Range/Units 18:25 10:40 Sodium 144 (137-145) mmol/L Potassium 3.6 D 3.0 L (3.6-5.0) mmol/L Chloride 103.3 (98-107) mmol/L Carbon Dioxide 24 (22-30) mmol/L BUN 55 H (7-17) mg/dL Creatinine 3.4 H (0.7-1.2) mg/dL Glucose 161 H (65-100) mg/dL Calcium 8.8 (8.4-10.2) mg/dL Calcium panel 12/19/16 Range/Units 10:40 Calcium 8.8 (8.4-10.2) mg/dL Phosphorus 5.10 H (2.5-4.5) mg/dL Pituitary panel 12/18/16 12/19/16 Range/Units 18:25 10:40 Sodium 144 (137-145) mmol/L Potassium 3.6 D 3.0 L (3.6-5.0) mmol/L Chloride 103.3 (98-107) mmol/L Carbon Dioxide 24 (22-30) mmol/L BUN 55 H (7-17) mg/dL Creatinine 3.4 H (0.7-1.2) mg/dL Glucose 161 H (65-100) mg/dL Calcium 8.8 (8.4-10.2) mg/dL Adrenal panel 12/18/16 12/19/16 Range/Units 18:25 10:40 Sodium 144 (137-145) mmol/L Potassium 3.6 D 3.0 L (3.6-5.0) mmol/L Chloride 103.3 (98-107) mmol/L Carbon Dioxide 24 (22-30) mmol/L BUN 55 H (7-17) mg/dL Creatinine 3.4 H (0.7-1.2) mg/dL Glucose 161 H (65-100) mg/dL Calcium 8.8 (8.4-10.2) mg/dL
[2016-12-19] MEDS: ZOCOR PO SCH (21:25)
[2016-12-20 06:05] LABS: ISTAT Base Excess 0; ISTAT HCO3 23.8; ISTAT PCO2 35.7 (35-45); ISTAT PH 7.433 (7.35-7.45); ISTAT PO2 110 (80-105); ISTAT SO2 98; ISTAT TCO2 25
[2016-12-20] MEDS: NOVOLOG SUB-Q SCH ×4 (06:49→18:32)
[2016-12-20] MEDS: HEPARIN SUB-Q SCH ×3 (06:57→21:34)
--- NOTE | 2016-12-20 09:38 | XRay Report ---
AP CHEST 12/20/16 CLINICAL: Followup respiratory failure. COMPARISON:Previous day. FINDINGS: The tracheostomy tube is in satisfactory position. The feeding tube is satisfactory. A left IJ catheter tip is in the SVC and unchanged. Normal heart and pulmonary vessels. Lungs are mildly underexpanded no airspace disease or pleural effusion.No pneumothorax. IMPRESSION: No CHF or pneumonia.
[2016-12-20] MEDS: LEVEMIR SUB-Q SCH (10:04)
[2016-12-20] MEDS: ASPIRIN PO SCH (10:05)
[2016-12-20] MEDS: PEPCID IV SCH (10:05)
[2016-12-20] MEDS: ROCEPHIN/NS 2 GM/100 ML 2 GM/100 ML BAG IV SCH (10:12)
--- NOTE | 2016-12-20 11:28 | Progress Note ---
Assessment and Plan Assessment and plan: 56-year-old woman with a past medical history of [id number] diabetes , hypertension, chronic intermittent left middle toe infection presented to the hospital with right arm weakness and slurred speech. Patient also has history of frequent falls, chronic left knee pain and osteoarthritis and was planned for knee replacement. She was admitted to the hospital for stroke workup, she was found to have acute kidney injury on admission. Her kidney function continued to worsen, she was planned for CT-guided kidney biopsy on 12/15, but while she was at CT scan, she had an episode of cardiac arrest, she received CPR , unfortunately she had a very difficult airway multiple sclerosis for attempts were tried after which she had an emergency cricothyroidotomy. She most likely had prolonged period of anoxia leading to anoxic brain injury. Her mental status has not improved since then since this incidents she has been comatose. Acute kidney injury * likely secondary to ATN, nephrology input appreciated, continue hemodialysis as needed Toxic metabolic encephalopathy * Due to kidney failure, treating underlying cause Type 2 diabetes * Continue sliding scale Hypertension * BP acceptable, continue current management Metabolic encephalopathy * She had an MRI of her brain on 12/12 did not show any acute changes * However she's not had brain imaging since she had anoxic event on 12/15, for repeat CT head today. Highly suspect anoxic encephalopathy, neurology input appreciated Sepsis secondary to UTI * Continue rocephin, till 12/27 * fever- repeat Blood cultures Gram negative septicemia/sepsis * blood culture growing Klebsiella PNA, which is sensitive to Ceftriaxone * continue rocephin till 12/27 Acute respiratory failure, on MV greater than 96 hours * initially had emergent cricothyroidotomy on 12/15, and then sp tracheostomy on 12/18 * Continue ventilator Abdominal Distension * fup CT abdomen Cardiogenic shock * Has been weaned off pressors Hyperkalemia Resolved with dialysis Hypokalemia Replete judiciously, given that she has TAYA Hypomagnesemia Was replaced . Hyperlipidemia Continue statin Hypothyroidism TSH within normal limits Continue Synthroid at current dose Obesity Hypoventilation/SHELIA continue vent DVT prophylaxis continue heparin Discussed with family and consultants Prognosis is poor. patient will likely need trache and PEG and SNF placement The high probability of a clinically significant, sudden or life threatening deterioration of the [pulmonary, cardiovascular, renal] system(s) required my full and direct attention, intervention and personal management. The aggregate critical care time was [33] minutes. This time is in addition to time spent performing reported procedures but includes the following: [] Data Review and interpretation [] Patient assessment and monitoring of vital signs [] Documentation [] Medication orders and management History Interval history: still comatose, non responsive, non verbal, no purposeful movement Hospitalist Physical - Physical exam Narrative exam: General.: Appears well, no distress, nontoxic HEENT: Moist mucous membranes, extraocular muscles intact, no lymphadenopathy Neck: supple Cardiac: S1-S2 heard Lungs: clear to auscultation bilaterally Abdomen: soft , nontender, nondistended, bowel sounds positive Extremities: no edema clubbing or cyanosis Skin: no rash or lesions Neurologic: comatose, pupils responsive to light, no purposeful movement, trached, not on sedation - Constitutional Vitals: Temp Pulse Resp BP Pulse Ox 98.9 F 76 20 145/74 99 12/20/16 08:00 12/20/16 11:25 12/20/16 11:25 12/20/16 11:25 12/20/16 11:25 General appearance: Present: obese Results - Labs CBC & Chem 7: 12/19/16 10:40 12/20/16 10:47 Labs: Laboratory Last Values WBC 6.9 K/mm3 (4.5-11.0) 12/19/16 10:40 RBC 3.06 M/mm3 (3.65-5.03) L 12/19/16 10:40 Hgb 9.2 gm/dl (10.1-14.3) L 12/19/16 10:40 Hct 28.0 % (30.3-42.9) L 12/19/16 10:40 MCV 92 fl (79-97) 12/19/16 10:40 MCH 30 pg (28-32) 12/19/16 10:40 MCHC 33 % (30-34) 12/19/16 10:40 RDW 14.8 % (13.2-15.2) 12/19/16 10:40 Plt Count 126 K/mm3 (140-440) L 12/19/16 10:40 Lymph % (Auto) 16.1 % (13.4-35.0) 12/17/16 13:58 [place] % (Auto) 7.9 % (0.0-7.3) H 12/17/16 13:58 Eos % (Auto) 0.8 % (0.0-4.3) 12/17/16 13:58 Baso % (Auto) 0.2 % (0.0-1.8) 12/17/16 13:58 Lymph # 0.8 K/mm3 (1.2-5.4) L 12/17/16 13:58 [place] # 0.4 K/mm3 (0.0-0.8) 12/17/16 13:58 Eos # 0.0 K/mm3 (0.0-0.4) 12/17/16 13:58 Baso # 0.0 K/mm3 (0.0-0.1) 12/17/16 13:58 Seg Neutrophils % 75.0 % (40.0-70.0) H 12/17/16 13:58 Seg Neutrophils # 3.9 K/mm3 (1.8-7.7) 12/17/16 13:58 PT 17.6 Sec. (12.2-14.9) H 12/16/16 06:30 INR 1.45 (0.87-1.13) H 12/16/16 06:30 APTT 27.6 Sec. (24.2-36.6) 12/11/16 23:50 Thrombin Time 16.6 Sec. (15.1-19.6) 12/11/16 23:50 POC ABG pH 7.433 (7.35-7.45) 12/20/16 05:45 POC ABG pCO2 35.7 (35-45) 12/20/16 05:45 POC ABG pO2 110 (80-105) H 12/20/16 05:45 POC ABG HCO3 23.8 12/20/16 05:45 POC ABG Total CO2 25 12/20/16 05:45 POC ABG O2 Sat 98 12/20/16 05:45 POC ABG Base Excess 0 12/20/16 05:45 FiO2 30 % 12/20/16 05:45 Sodium 144 mmol/L (137-145) 12/19/16 10:40 Potassium 3.0 mmol/L (3.6-5.0) L 12/19/16 10:40 Chloride 103.3 mmol/L (98-107) 12/19/16 10:40 Carbon Dioxide 24 mmol/L (22-30) 12/19/16 10:40 Anion Gap 20 mmol/L 12/19/16 10:40 BUN 55 mg/dL (7-17) H 12/19/16 10:40 Creatinine 3.4 mg/dL (0.7-1.2) H 12/19/16 10:40 Estimated GFR 14 ml/min 12/19/16 10:40 BUN/Creatinine Ratio 16.17 % 12/19/16 10:40 Glucose 161 mg/dL (65-100) H 12/19/16 10:40 POC Glucose 175 (70-105) H 12/20/16 05:34 Lactic Acid 1.80 mmol/L (0.7-2.0) 12/15/16 Unknown Calcium 8.8 mg/dL (8.4-10.2) 12/19/16 10:40 Phosphorus 5.10 mg/dL (2.5-4.5) H 12/19/16 10:40 Magnesium 1.80 mg/dL (1.7-2.3) 12/19/16 10:40 Total Bilirubin 0.30 mg/dL (0.1-1.2) 12/17/16 07:24 Direct Bilirubin < 0.2 mg/dL (0-0.2) 12/16/16 15:30 Indirect Bilirubin 0.0 mg/dL 12/16/16 15:30 AST 40 units/L (5-40) 12/17/16 07:24 ALT 27 units/L (7-56) 12/17/16 07:24 Alkaline Phosphatase 155 units/L (35-129) H 12/17/16 07:24 Total Creatine Kinase 73 units/L (30-135) 12/15/16 04:35 Troponin T < 0.010 ng/mL (0.00-0.029) 12/11/16 23:50 Serum Total Protein 6.1 g/dL (6.1-8.1) 12/14/16 09:00 Total Protein 6.3 g/dL (6.3-8.2) 12/17/16 07:24 Albumin 2.2 g/dL (3.9-5) L 12/17/16 07:24 Albumin/Globulin Ratio 0.5 % 12/17/16 07:24 [id number] 0.7 g/dL (0.2-0.3) H 12/14/16 09:00 [id number]-7-[id number] 1.0 g/dL (0.5-0.9) H 12/14/16 09:00 Beta Globulins 0.7 g/dL (0.2-0.5) H 12/14/16 09:00 Gamma Globulins 0.7 g/dL (0.8-1.7) L 12/14/16 09:00 Abnorm Protein Band 1 see below 12/14/16 09:00 PEP Interpretation see below H 12/14/16 09:00 Triglycerides 166 mg/dL (2-149) H 12/13/16 03:39 Cholesterol 66 mg/dL (50-199) 12/13/16 03:39 LDL Cholesterol Direct 24 mg/dL (50-130) L 12/13/16 03:39 HDL Cholesterol 9 mg/dL (40-59) L 12/13/16 03:39 Cholesterol/HDL Ratio 7.33 % 12/13/16 03:39 TSH 2.640 mlU/mL (0.270-4.200) 12/12/16 15:23 Urine Color Yellow (Yellow) 12/12/16 21:30 Urine Turbidity Turbid (Clear) 12/12/16 21:30 Urine pH 5.0 (5.0-7.0) 12/12/16 21:30 Ur Specific [place] 1.015 (1.003-1.030) 12/12/16 21:30 Urine Protein 100 mg/dl mg/dL (Negative) 12/12/16 21:30 Urine Glucose (UA) Neg mg/dL (Negative) 12/12/16 21:30 Urine Ketones Neg mg/dL (Negative) 12/12/16 21:30 Urine Blood Lg (Negative) 12/12/16 21:30 Urine Nitrite Neg (Negative) 12/12/16 21:30 Urine Bilirubin Neg (Negative) 12/12/16 21:30 Urine Urobilinogen < 2.0 mg/dL (<2.0) 12/12/16 21:30 Ur Leukocyte Esterase Lg (Negative) 12/12/16 21:30 Urine WBC (Auto) > 182.0 /HPF (0.0-6.0) H 12/12/16 21:30 Urine RBC (Auto) 62.0 /HPF (0.0-6.0) 12/12/16 21:30 U Epithel Cells (Auto) 7.0 /HPF (0-13.0) 12/12/16 21:30 Urine Bacteria (Auto) 4+ /HPF (Negative) 12/12/16 21:30 Urine WBC Clumps 3+ /HPF 12/12/16 21:30 Calcium Oxalate Crystal 3+ 12/12/16 21:30 Urine Opiates Screen Presumptive negative 12/12/16 21:30 Urine Methadone Screen Presumptive negative 12/12/16 21:30 Ur Barbiturates Screen Presumptive negative 12/12/16 21:30 Ur Phencyclidine Scrn Presumptive negative 12/12/16 21:30 Ur Amphetamines Screen Presumptive negative 12/12/16 21:30 U Benzodiazepines Scrn Presumptive negative 12/12/16 21:30 Urine Cocaine Screen Presumptive negative 12/12/16 21:30 U Marijuana (THC) Screen Presumptive negative 12/12/16 21:30 Drugs of Abuse Note Disclamer 12/12/16 21:30 Proteinase 3 (PR3) Ab <1.0 AI (<1.0) 12/14/16 09:00 Myeloperoxidase Ab <1.0 AI (<1.0) 12/14/16 09:00 Glomerular Base Mem IgG <1.0 AI (<1.0) 12/14/16 09:00 Complement C3 206 mg/dL (90-180) H 12/14/16 09:00 Complement C4 56 mg/dL (16-47) H 12/14/16 09:00 Hepatitis A IgM Ab Non-reactive (NonReactive) 12/18/16 18:30 Hep Bs Antigen Non-reactive (Negative) 12/18/16 18:30 Hep B Core IgM Ab Non-reactive (NonReactive) 12/18/16 18:30 Hepatitis C Antibody Non-reactive (NonReactive) 12/18/16 18:30 Renal Biopsy Scanned into [facility] rec 12/15/16 13:43
[2016-12-20 11:37] LABS: Calcium 8.8 mg/dL (8.4-10.2); Chloride 104.1 mmol/L (98-107); Potassium 3.4 mmol/L (3.6-5.0)
--- NOTE | 2016-12-20 13:52 | Progress Note ---
Assessment and Plan 56 y/o female with acute respiratory failure secondary to cardiac arrest, acute renal failure now requiring HD and encephalopathy post arrest. 1. Patient needs LTACH referral 2. Start tube feeds now 3. Continue PSV trials as tolerated 4. HD per renal 5. Overall prognosis is guarded. Neuro believes that patient needs time to wake up and that the course is to early to determine if the prognosis is poor. With that, given her respiratory failure, she would benefit from LTACH care. Will discuss with CM CCT 31 minutes. Subjective Date of service: 12/20/16 Principal diagnosis: Coma Interval history: Had head and abdominal CT's on yesterday. Head CT with no edema. Abdominal CT with no evidence of obstruction. Abdomen is soft. not at bedside but reviewed the neurologist note from yesterday. Objective Vital Signs - 12hr 12/20/16 12/20/16 12/20/16 02:00 02:30 03:00 Temperature Pulse Rate 73 83 84 Pulse Rate [ From Monitor] Respiratory 16 16 15 Rate Blood Pressure 136/68 143/76 147/83 O2 Sat by Pulse 94 96 96 Oximetry 12/20/16 12/20/16 12/20/16 03:30 04:00 04:30 Temperature 98.3 F Pulse Rate 78 79 85 Pulse Rate [ From Monitor] Respiratory 16 17 16 Rate Blood Pressure 141/71 141/71 145/76 O2 Sat by Pulse 96 99 96 Oximetry 12/20/16 12/20/16 12/20/16 04:36 04:55 05:00 Temperature Pulse Rate 86 82 Pulse Rate [ From Monitor] Respiratory 16 18 Rate Blood Pressure 139/79 139/77 O2 Sat by Pulse 95 99 96 Oximetry 12/20/16 12/20/16 12/20/16 05:30 06:00 06:30 Temperature Pulse Rate 78 79 85 Pulse Rate [ From Monitor] Respiratory 17 16 18 Rate Blood Pressure 145/71 149/73 153/78 O2 Sat by Pulse 96 96 96 Oximetry 12/20/16 12/20/16 12/20/16 07:00 07:30 08:00 Temperature 98.9 F Pulse Rate 78 90 84 Pulse Rate [ 84 From Monitor] Respiratory 18 18 18 Rate Blood Pressure 145/69 147/75 153/77 O2 Sat by Pulse 96 97 97 Oximetry 12/20/16 12/20/16 12/20/16 08:30 08:36 09:00 Temperature Pulse Rate 86 87 75 Pulse Rate [ From Monitor] Respiratory 18 17 Rate Blood Pressure 149/76 149/76 142/70 O2 Sat by Pulse 96 99 96 Oximetry 12/20/16 12/20/16 12/20/16 09:30 10:00 10:30 Temperature Pulse Rate 84 80 84 Pulse Rate [ From Monitor] Respiratory 18 18 18 Rate Blood Pressure 153/76 155/77 148/75 O2 Sat by Pulse 97 95 97 Oximetry 12/20/16 12/20/16 12/20/16 11:00 11:25 11:27 Temperature Pulse Rate 84 76 75 Pulse Rate [ From Monitor] Respiratory 20 15 Rate Blood Pressure 145/74 145/74 145/74 O2 Sat by Pulse 97 99 99 Oximetry 12/20/16 12:00 Temperature 99 F Pulse Rate Pulse Rate [ From Monitor] Respiratory Rate Blood Pressure O2 Sat by Pulse Oximetry Constitutional: comatose Eyes: other (eyes are covered) ENT: oropharynx dry, other (trach midline) Neck: supple, other (large in circumference) Effort: normal Ascultation: Bilateral: clear Cardiovascular: regular rate and rhythm Gastrointestinal: hypoactive bowel sounds, other (distended, tympanic) Integumentary: normal Extremities: anasarca Neurologic: unable to assess CBC and BMP: 12/19/16 10:40 12/20/16 10:47 ABG, PT/INR, D-dimer: ABG POC ABG pH 7.433 (7.35-7.45) 12/20/16 05:45 POC ABG pCO2 35.7 (35-45) 12/20/16 05:45 POC ABG pO2 110 (80-105) H 12/20/16 05:45 POC ABG HCO3 23.8 12/20/16 05:45 POC ABG Total CO2 25 12/20/16 05:45 POC ABG O2 Sat 98 12/20/16 05:45 PT/INR, D-dimer PT 17.6 Sec. (12.2-14.9) H 12/16/16 06:30 INR 1.45 (0.87-1.13) H 12/16/16 06:30 Abnormal lab findings: Abnormal Labs 12/12/16 12/12/16 12/12/16 08:06 12:27 15:23 WBC RBC Hgb Hct Plt Count Lymph % (Auto) Stewart % (Auto) Lymph # Seg Neutrophils % Seg Neutrophils # PT INR POC ABG pH POC ABG pCO2 POC ABG pO2 Sodium Potassium Chloride Carbon Dioxide BUN Creatinine Glucose POC Glucose 299 H 281 H Lactic Acid 4.20 H* Calcium Phosphorus Magnesium AST Alkaline Phosphatase Total Protein Albumin Uzzuk-6-Qzficyjxx Yafjo-7-Nxhybpyhj Beta Globulins Gamma Globulins PEP Interpretation Triglycerides LDL Cholesterol Direct HDL Cholesterol Urine WBC (Auto) Complement C3 Complement C4 12/12/16 12/12/16 12/12/16 16:53 19:51 20:43 WBC RBC Hgb Hct Plt Count Lymph % (Auto) Stewart % (Auto) Lymph # Seg Neutrophils % Seg Neutrophils # PT INR POC ABG pH POC ABG pCO2 POC ABG pO2 Sodium Potassium Chloride Carbon Dioxide BUN Creatinine Glucose POC Glucose 272 H 238 H Lactic Acid 2.90 H* Calcium Phosphorus Magnesium AST Alkaline Phosphatase Total Protein Albumin Hnlkp-6-Vfpmwbtkl Nnpcs-5-Llycaauji Beta Globulins Gamma Globulins PEP Interpretation Triglycerides LDL Cholesterol Direct HDL Cholesterol Urine WBC (Auto) Complement C3 Complement C4 12/12/16 12/13/16 12/13/16 21:30 03:39 03:39 WBC RBC Hgb Hct Plt Count 118 L Lymph % (Auto) 7.4 L Stewart % (Auto) 7.6 H Lymph # 0.7 L Seg Neutrophils % 84.7 H Seg Neutrophils # 8.4 H PT INR POC ABG pH POC ABG pCO2 POC ABG pO2 Sodium 133 L Potassium Chloride 96.5 L Carbon Dioxide 18 L BUN 49 H Creatinine 3.1 H D Glucose 173 H POC Glucose Lactic Acid Calcium 8.3 L D Phosphorus Magnesium 1.20 L AST Alkaline Phosphatase Total Protein Albumin 2.6 L Bqpdh-7-Zqztbbqar Pzcdg-2-Lvvhnmgxg Beta Globulins Gamma Globulins PEP Interpretation Triglycerides 166 H LDL Cholesterol Direct 24 L HDL Cholesterol 9 L Urine WBC (Auto) > 182.0 H Complement C3 Complement C4 12/13/16 12/13/16 12/13/16 07:41 11:53 17:23 WBC RBC Hgb Hct Plt Count Lymph % (Auto) Stewart % (Auto) Lymph # Seg Neutrophils % Seg Neutrophils # PT INR POC ABG pH POC ABG pCO2 POC ABG pO2 Sodium Potassium Chloride Carbon Dioxide BUN Creatinine Glucose POC Glucose 222 H 221 H 247 H Lactic Acid Calcium Phosphorus Magnesium AST Alkaline Phosphatase Total Protein Albumin Rdsng-9-Xqklxciup Wmjgx-5-Thytcjyhv Beta Globulins Gamma Globulins PEP Interpretation Triglycerides LDL Cholesterol Direct HDL Cholesterol Urine WBC (Auto) Complement C3 Complement C4 12/13/16 12/14/16 12/14/16 21:29 03:35 03:35 WBC RBC 3.42 L Hgb Hct Plt Count 86 L Lymph % (Auto) 6.1 L Stewart % (Auto) Lymph # 0.3 L Seg Neutrophils % 87.3 H Seg Neutrophils # PT INR POC ABG pH POC ABG pCO2 POC ABG pO2 Sodium 133 L Potassium 5.1 H Chloride 96.2 L Carbon Dioxide 17 L BUN 63 H Creatinine 4.2 H Glucose 136 H POC Glucose 185 H Lactic Acid Calcium 8.1 L Phosphorus Magnesium 1.30 L AST Alkaline Phosphatase Total Protein Albumin Kxzat-0-Drzriydfr Kqkru-5-Gngsdbkdy Beta Globulins Gamma Globulins PEP Interpretation Triglycerides LDL Cholesterol Direct HDL Cholesterol Urine WBC (Auto) Complement C3 Complement C4 12/14/16 12/14/16 12/14/16 08:32 09:00 09:00 WBC RBC Hgb Hct Plt Count Lymph % (Auto) Stewart % (Auto) Lymph # Seg Neutrophils % Seg Neutrophils # PT INR POC ABG pH POC ABG pCO2 POC ABG pO2 Sodium Potassium Chloride Carbon Dioxide BUN Creatinine Glucose POC Glucose 152 H Lactic Acid Calcium Phosphorus Magnesium AST Alkaline Phosphatase Total Protein Albumin Juabb-4-Ufziaumsi Gimzv-2-Wgrhmgvff Beta Globulins Gamma Globulins PEP Interpretation Triglycerides LDL Cholesterol Direct HDL Cholesterol Urine WBC (Auto) Complement C3 206 H Complement C4 56 H 12/14/16 12/14/16 12/14/16 09:00 11:50 17:35 WBC RBC Hgb Hct Plt Count Lymph % (Auto) Stewart % (Auto) Lymph # Seg Neutrophils % Seg Neutrophils # PT INR POC ABG pH POC ABG pCO2 POC ABG pO2 Sodium Potassium Chloride Carbon Dioxide BUN Creatinine Glucose POC Glucose 168 H 154 H Lactic Acid Calcium Phosphorus Magnesium AST Alkaline Phosphatase Total Protein Albumin 2.6 L Qojku-9-Iglflarzw 0.7 H Jzvem-2-Zvuhslhoc 1.0 H Beta Globulins 0.7 H Gamma Globulins 0.7 L PEP Interpretation see below H Triglycerides LDL Cholesterol Direct HDL Cholesterol Urine WBC (Auto) Complement C3 Complement C4 12/15/16 12/15/16 12/15/16 04:35 04:35 07:45 WBC 4.1 L RBC 3.39 L Hgb Hct Plt Count 84 L Lymph % (Auto) 8.8 L Stewart % (Auto) Lymph # 0.4 L Seg Neutrophils % 83.6 H Seg Neutrophils # PT INR POC ABG pH POC ABG pCO2 POC ABG pO2 Sodium Potassium 6.0 H Chloride Carbon Dioxide 15 L BUN 79 H Creatinine 5.0 H Glucose POC Glucose 113 H Lactic Acid Calcium 8.0 L Phosphorus 6.70 H D Magnesium AST Alkaline Phosphatase Total Protein Albumin Hzqqc-9-Wspbcjlmt Rchiz-9-Pejyqsapf Beta Globulins Gamma Globulins PEP Interpretation Triglycerides LDL Cholesterol Direct HDL Cholesterol Urine WBC (Auto) Complement C3 Complement C4 12/15/16 12/15/16 12/15/16 08:13 15:20 23:53 WBC RBC Hgb Hct Plt Count Lymph % (Auto) Stewart % (Auto) Lymph # Seg Neutrophils % Seg Neutrophils # PT INR POC ABG pH 7.156 L 7.228 L POC ABG pCO2 48.7 H POC ABG pO2 232 H Sodium Potassium Chloride Carbon Dioxide BUN Creatinine Glucose POC Glucose 232 H Lactic Acid Calcium Phosphorus Magnesium AST Alkaline Phosphatase Total Protein Albumin Xapyc-0-Pxxnmqrln Amdzr-7-Pshwkxvrq Beta Globulins Gamma Globulins PEP Interpretation Triglycerides LDL Cholesterol Direct HDL Cholesterol Urine WBC (Auto) Complement C3 Complement C4 12/15/16 12/15/16 12/15/16 Unknown Unknown Unknown WBC RBC 3.19 L Hgb 9.6 L Hct 29.8 L Plt Count 108 L Lymph % (Auto) 6.5 L Stewart % (Auto) Lymph # 0.4 L Seg Neutrophils % 87.1 H Seg Neutrophils # PT 16.2 H INR 1.31 H POC ABG pH POC ABG pCO2 POC ABG pO2 Sodium Potassium Chloride Carbon Dioxide 16 L BUN 85 H Creatinine 4.9 H Glucose 205 H POC Glucose Lactic Acid Calcium 8.2 L Phosphorus Magnesium AST 77 H Alkaline Phosphatase 136 H Total Protein Albumin 2.3 L Xscgg-7-Xnemsezom Yovsc-2-Kersyrkua Beta Globulins Gamma Globulins PEP Interpretation Triglycerides LDL Cholesterol Direct HDL Cholesterol Urine WBC (Auto) Complement C3 Complement C4 12/16/16 12/16/16 12/16/16 04:58 05:39 06:30 WBC 4.0 L RBC 3.23 L Hgb 9.6 L Hct 29.8 L Plt Count 110 L Lymph % (Auto) 11.3 L Stewart % (Auto) Lymph # 0.5 L Seg Neutrophils % 81.2 H Seg Neutrophils # PT INR POC ABG pH POC ABG pCO2 POC ABG pO2 143 H Sodium Potassium Chloride Carbon Dioxide BUN Creatinine Glucose POC Glucose 201 H Lactic Acid Calcium Phosphorus Magnesium AST Alkaline Phosphatase Total Protein Albumin Zazei-2-Zjwrahznt Ewiol-0-Efackjqlh Beta Globulins Gamma Globulins PEP Interpretation Triglycerides LDL Cholesterol Direct HDL Cholesterol Urine WBC (Auto) Complement C3 Complement C4 12/16/16 12/16/16 12/16/16 06:30 06:30 11:16 WBC RBC Hgb Hct Plt Count Lymph % (Auto) Stewart % (Auto) Lymph # Seg Neutrophils % Seg Neutrophils # PT 17.6 H INR 1.45 H POC ABG pH POC ABG pCO2 POC ABG pO2 Sodium Potassium Chloride Carbon Dioxide 20 L BUN 57 H Creatinine 3.6 H Glucose 176 H POC Glucose 194 H Lactic Acid Calcium 8.1 L Phosphorus 4.90 H D Magnesium 1.60 L AST 46 H Alkaline Phosphatase 137 H Total Protein Albumin 2.3 L Gblgc-0-Oukbzmsba Kzhyc-1-Grlkbiisa Beta Globulins Gamma Globulins PEP Interpretation Triglycerides LDL Cholesterol Direct HDL Cholesterol Urine WBC (Auto) Complement C3 Complement C4 12/16/16 12/16/16 12/16/16 15:30 17:23 23:35 WBC RBC Hgb Hct Plt Count Lymph % (Auto) Stewart % (Auto) Lymph # Seg Neutrophils % Seg Neutrophils # PT INR POC ABG pH POC ABG pCO2 POC ABG pO2 Sodium Potassium Chloride Carbon Dioxide BUN Creatinine Glucose POC Glucose 209 H 179 H Lactic Acid Calcium Phosphorus Magnesium AST 43 H Alkaline Phosphatase 156 H Total Protein 5.6 L Albumin 2.4 L Ijnuo-9-Irqmhkccp Rxjmc-7-Nbhtbvmad Beta Globulins Gamma Globulins PEP Interpretation Triglycerides LDL Cholesterol Direct HDL Cholesterol Urine WBC (Auto) Complement C3 Complement C4 12/17/16 12/17/16 12/17/16 03:38 05:18 07:24 WBC RBC Hgb Hct Plt Count Lymph % (Auto) Stewart % (Auto) Lymph # Seg Neutrophils % Seg Neutrophils # PT INR POC ABG pH 7.485 H POC ABG pCO2 POC ABG pO2 Sodium Potassium 3.3 L Chloride Carbon Dioxide BUN 50 H Creatinine 3.1 H Glucose 181 H POC Glucose 201 H Lactic Acid Calcium Phosphorus Magnesium AST Alkaline Phosphatase 155 H Total Protein Albumin 2.2 L Qjnfc-0-Frgilrgkm Reelt-7-Mkvuwfkba Beta Globulins Gamma Globulins PEP Interpretation Triglycerides LDL Cholesterol Direct HDL Cholesterol Urine WBC (Auto) Complement C3 Complement C4 12/17/16 12/17/16 12/17/16 12:00 13:58 17:11 WBC RBC 3.02 L Hgb 9.2 L Hct 27.2 L Plt Count 100 L Lymph % (Auto) Stewart % (Auto) 7.9 H Lymph # 0.8 L Seg Neutrophils % 75.0 H Seg Neutrophils # PT INR POC ABG pH POC ABG pCO2 POC ABG pO2 Sodium Potassium Chloride Carbon Dioxide BUN Creatinine Glucose POC Glucose 176 H 152 H Lactic Acid Calcium Phosphorus Magnesium AST Alkaline Phosphatase Total Protein Albumin Bwybr-6-Lnpvbzhrj Gxvtv-1-Mwrhatscx Beta Globulins Gamma Globulins PEP Interpretation Triglycerides LDL Cholesterol Direct HDL Cholesterol Urine WBC (Auto) Complement C3 Complement C4 12/18/16 12/18/16 12/18/16 00:05 05:40 07:52 WBC RBC Hgb Hct Plt Count Lymph % (Auto) Stewart % (Auto) Lymph # Seg Neutrophils % Seg Neutrophils # PT INR POC ABG pH POC ABG pCO2 POC ABG pO2 Sodium Potassium 2.9 L* Chloride Carbon Dioxide BUN 69 H Creatinine 4.5 H Glucose 150 H POC Glucose 155 H 170 H Lactic Acid Calcium Phosphorus Magnesium AST Alkaline Phosphatase Total Protein Albumin Ciwnw-8-Xghcouvzf Iyucp-7-Qdfvpnnpd Beta Globulins Gamma Globulins PEP Interpretation Triglycerides LDL Cholesterol Direct HDL Cholesterol Urine WBC (Auto) Complement C3 Complement C4 12/18/16 12/18/16 12/18/16 12:21 15:10 18:43 WBC RBC Hgb Hct Plt Count Lymph % (Auto) Stewart % (Auto) Lymph # Seg Neutrophils % Seg Neutrophils # PT INR POC ABG pH POC ABG pCO2 POC ABG pO2 Sodium Potassium Chloride Carbon Dioxide BUN Creatinine Glucose POC Glucose 165 H 130 H 176 H Lactic Acid Calcium Phosphorus Magnesium AST Alkaline Phosphatase Total Protein Albumin Lpxlw-8-Lrqjeoims Rxxvt-8-Guwcvwezi Beta Globulins Gamma Globulins PEP Interpretation Triglycerides LDL Cholesterol Direct HDL Cholesterol Urine WBC (Auto) Complement C3 Complement C4 12/18/16 12/19/16 12/19/16 23:33 03:04 05:47 WBC RBC Hgb Hct Plt Count Lymph % (Auto) Stewart % (Auto) Lymph # Seg Neutrophils % Seg Neutrophils # PT INR POC ABG pH 7.455 H POC ABG pCO2 POC ABG pO2 Sodium Potassium Chloride Carbon Dioxide BUN Creatinine Glucose POC Glucose 174 H 160 H Lactic Acid Calcium Phosphorus Magnesium AST Alkaline Phosphatase Total Protein Albumin Fdjoa-0-Sanwbejtg Tzkau-4-Yohztcifs Beta Globulins Gamma Globulins PEP Interpretation Triglycerides LDL Cholesterol Direct HDL Cholesterol Urine WBC (Auto) Complement C3 Complement C4 12/19/16 12/19/16 12/19/16 10:40 10:40 13:00 WBC RBC 3.06 L Hgb 9.2 L Hct 28.0 L Plt Count 126 L Lymph % (Auto) Stewart % (Auto) Lymph # Seg Neutrophils % Seg Neutrophils # PT INR POC ABG pH POC ABG pCO2 POC ABG pO2 Sodium Potassium 3.0 L Chloride Carbon Dioxide BUN 55 H Creatinine 3.4 H Glucose 161 H POC Glucose 173 H Lactic Acid Calcium Phosphorus 5.10 H Magnesium AST Alkaline Phosphatase Total Protein Albumin Ndqps-0-Dzwveougo Dlqwg-4-Ivcprkhon Beta Globulins Gamma Globulins PEP Interpretation Triglycerides LDL Cholesterol Direct HDL Cholesterol Urine WBC (Auto) Complement C3 Complement C4 12/19/16 12/20/16 12/20/16 18:04 00:04 05:34 WBC RBC Hgb Hct Plt Count Lymph % (Auto) Stewart % (Auto) Lymph # Seg Neutrophils % Seg Neutrophils # PT INR POC ABG pH POC ABG pCO2 POC ABG pO2 Sodium Potassium Chloride Carbon Dioxide BUN Creatinine Glucose POC Glucose 129 H 152 H 175 H Lactic Acid Calcium Phosphorus Magnesium AST Alkaline Phosphatase Total Protein Albumin Buxwp-1-Kiyvxrxpi Khdcc-3-Acnimnfzc Beta Globulins Gamma Globulins PEP Interpretation Triglycerides LDL Cholesterol Direct HDL Cholesterol Urine WBC (Auto) Complement C3 Complement C4 12/20/16 12/20/16 05:45 10:47 WBC RBC Hgb Hct Plt Count Lymph % (Auto) Stewart % (Auto) Lymph # Seg Neutrophils % Seg Neutrophils # PT INR POC ABG pH POC ABG pCO2 POC ABG pO2 110 H Sodium Potassium 3.4 L Chloride Carbon Dioxide BUN 72 H Creatinine 4.0 H Glucose 130 H POC Glucose Lactic Acid Calcium Phosphorus Magnesium AST Alkaline Phosphatase Total Protein Albumin Holwf-1-Theubnqls Sufpc-0-Biulpfbzz Beta Globulins Gamma Globulins PEP Interpretation Triglycerides LDL Cholesterol Direct HDL Cholesterol Urine WBC (Auto) Complement C3 Complement C4
--- NOTE | 2016-12-20 15:59 | Progress Note ---
Assessment and Plan - Patient Problems (1) Acute kidney failure with tubular necrosis Current Visit: Yes Status: Acute Plan to address problem: Biopsy-proven Acute tubular necrosis. Still dialysis requiring. Continue current treatments. 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 Blood pressure now creeping up. Monitor closely. Start hypotensive medications if blood pressure becomes elevated. (4) Anoxic encephalopathy Current Visit: Yes Status: Acute Plan to address problem: Continue management by neurologist. [place] for improvement in neurologic status (5) Sepsis due to urinary tract infection Current Visit: Yes Status: Acute Plan to address problem: Continue antibiotics and follow Subjective Date of service: 12/20/16 Principal diagnosis: Coma Interval history: Patient seen lying in bed. Trach intact on ventilator. Not interacting Objective - Exam Narrative Exam: Middle-aged obese female lying in bed, not interacting NCAT, Tracheostomy tube intact on the ventilator, Cardiovascular system S1-S2 regular rate Chest clear to auscultation Abdomen obese, soft, nontender Extremities mild edema - Vital Signs Vital signs: Vital Signs - 12hr 12/20/16 12/20/16 12/20/16 04:00 04:30 04:36 Temperature 98.3 F Pulse Rate 79 85 Pulse Rate [ From Monitor] Respiratory 16 Rate Blood Pressure 141/71 145/76 O2 Sat by Pulse 99 96 95 Oximetry 12/20/16 12/20/16 12/20/16 04:55 05:00 05:30 Temperature Pulse Rate 86 82 78 Pulse Rate [ From Monitor] Respiratory 18 17 Rate Blood Pressure 139/79 139/77 145/71 O2 Sat by Pulse 99 96 96 Oximetry 12/20/16 12/20/16 12/20/16 06:00 06:30 07:00 Temperature Pulse Rate 79 85 78 Pulse Rate [ From Monitor] Respiratory 16 18 18 Rate Blood Pressure 149/73 153/78 145/69 O2 Sat by Pulse 96 96 96 Oximetry 09/06/0612/20/16 12/20/16 07:30 08:00 08:30 Temperature 98.9 F Pulse Rate 90 84 86 Pulse Rate [ 84 From Monitor] Respiratory 18 18 18 Rate Blood Pressure 147/75 153/77 149/76 O2 Sat by Pulse 97 97 96 Oximetry 12/20/16 12/20/16 12/20/16 08:36 09:00 09:30 Temperature Pulse Rate 87 75 84 Pulse Rate [ From Monitor] Respiratory 17 18 Rate Blood Pressure 149/76 142/70 153/76 O2 Sat by Pulse 99 96 97 Oximetry 12/20/16 12/20/16 12/20/16 10:00 10:30 11:00 Temperature Pulse Rate 80 84 84 Pulse Rate [ From Monitor] Respiratory 18 18 20 Rate Blood Pressure 155/77 148/75 145/74 O2 Sat by Pulse 95 97 97 Oximetry 12/20/16 12/20/16 12/20/16 11:25 11:27 11:30 Temperature Pulse Rate 76 75 78 Pulse Rate [ From Monitor] Respiratory 15 14 Rate Blood Pressure 145/74 145/74 138/69 O2 Sat by Pulse 99 99 98 Oximetry 12/20/16 12/20/16 12/20/16 12:00 12:30 13:00 Temperature 99 F Pulse Rate 82 79 83 Pulse Rate [ From Monitor] Respiratory 17 16 15 Rate Blood Pressure 145/71 143/72 146/74 O2 Sat by Pulse 97 96 96 Oximetry 12/20/16 13:30 Temperature Pulse Rate 86 Pulse Rate [ From Monitor] Respiratory 16 Rate Blood Pressure 156/77 O2 Sat by Pulse 97 Oximetry - Lab 12/19/16 10:40 12/20/16 10:47 Most recent lab results Calcium 8.8 mg/dL (8.4-10.2) 12/20/16 10:47 Phosphorus 5.10 mg/dL (2.5-4.5) H 12/19/16 10:40 Magnesium 1.80 mg/dL (1.7-2.3) 12/19/16 10:40
[2016-12-20] MEDS: TYLENOL PO PRN (18:32)
[2016-12-20] MEDS: ZOCOR PO SCH (21:35)
[2016-12-21] MEDS: NOVOLOG SUB-Q SCH ×4 (00:15→19:21)
[2016-12-21] MEDS: HEPARIN SUB-Q SCH ×3 (05:51→21:40)
[2016-12-21] MEDS ORDERED: SODIUM BICARBONATE FEEDTUBE PRN (07:41)
[2016-12-21] MEDS ORDERED: PANCREAZE DR 10,500 UNIT FEEDTUBE PRN (07:41)
[2016-12-21] MEDS ORDERED: SIMPLE SYRUP FEEDTUBE PRN ×2 (07:41)
[2016-12-21 09:24] LABS: ISTAT Base Excess -1; ISTAT HCO3 23.8; ISTAT PCO2 35.7 (35-45); ISTAT PH 7.431 (7.35-7.45); ISTAT PO2 96 (80-105); ISTAT SO2 98; ISTAT TCO2 25
[2016-12-21 09:31] LABS: BUN/Creatinine Ratio 19.76; Calcium 8.8 mg/dL (8.4-10.2); Chloride 105.2 mmol/L (98-107); Potassium 3.6 mmol/L (3.6-5.0)
--- NOTE | 2016-12-21 09:31 | XRay Report ---
AP CHEST: HISTORY: Follow up respiratory failure Lines and support devices are unchanged since yesterday's exam. The lungs are generally clear. No evidence for pneumonia, large pleural effusion or pneumothorax. Borderline heart size is stable. The bony structures are grossly intact. No change is appreciated. IMPRESSION: No change.
--- NOTE | 2016-12-21 10:35 | Progress Note ---
Assessment and Plan 56 y/o female with acute respiratory failure secondary to cardiac arrest, acute renal failure now requiring HD and encephalopathy post arrest. 1. Patient needs LTACH referral 2. Start tube feeds now, going 3. Continue PSV trials as tolerated 4. HD per renal 5. Overall prognosis is guarded. Neuro believes that patient needs time to wake up and that the course is to early to determine if the prognosis is poor. With that, given her respiratory failure, she would benefit from LTACH care. Will discuss with CM CCT 31 minutes. Subjective Date of service: 12/21/16 Principal diagnosis: Coma Interval history: No acute events. Mental status is still the same. Neuro ordered repeat imaging for today. Objective Vital Signs - 12hr 12/20/16 12/20/16 12/20/16 23:00 23:19 23:30 Temperature 100.5 F H Pulse Rate 85 88 Pulse Rate [ From Monitor] Pulse Rate [ Left Dorsalis Pedis] Pulse Rate [ Left Radial] Pulse Rate [ Right Dorsalis Pedis] Pulse Rate [ Right Radial] Respiratory 17 17 Rate Blood Pressure 148/78 150/79 O2 Sat by Pulse 97 97 Oximetry O2 Sat by Pulse Oximetry [ Assessment] 12/21/16 12/21/16 12/21/16 00:00 00:22 00:30 Temperature Pulse Rate 90 88 88 Pulse Rate [ 87 From Monitor] Pulse Rate [ 87 Left Dorsalis Pedis] Pulse Rate [ 87 Left Radial] Pulse Rate [ 87 Right Dorsalis Pedis] Pulse Rate [ 87 Right Radial] Respiratory 19 16 18 Rate Blood Pressure 151/82 151/82 152/78 O2 Sat by Pulse 97 99 97 Oximetry O2 Sat by Pulse 99 Oximetry [ Assessment] 12/21/16 12/21/16 12/21/16 01:00 01:30 02:00 Temperature Pulse Rate 88 88 85 Pulse Rate [ From Monitor] Pulse Rate [ Left Dorsalis Pedis] Pulse Rate [ Left Radial] Pulse Rate [ Right Dorsalis Pedis] Pulse Rate [ Right Radial] Respiratory 19 19 18 Rate Blood Pressure 155/78 153/79 147/76 O2 Sat by Pulse 97 97 96 Oximetry O2 Sat by Pulse Oximetry [ Assessment] 12/21/16 12/21/16 12/21/16 02:30 03:00 03:16 Temperature Pulse Rate 87 92 H Pulse Rate [ 76 From Monitor] Pulse Rate [ 76 Left Dorsalis Pedis] Pulse Rate [ 76 Left Radial] Pulse Rate [ Right Dorsalis Pedis] Pulse Rate [ 76 Right Radial] Respiratory 18 15 14 Rate Blood Pressure 161/86 166/90 O2 Sat by Pulse 96 96 Oximetry O2 Sat by Pulse Oximetry [ Assessment] 12/21/16 12/21/16 12/21/16 03:30 03:56 04:00 Temperature 100.4 F H Pulse Rate 89 92 H Pulse Rate [ From Monitor] Pulse Rate [ Left Dorsalis Pedis] Pulse Rate [ Left Radial] Pulse Rate [ Right Dorsalis Pedis] Pulse Rate [ Right Radial] Respiratory 17 18 Rate Blood Pressure 165/87 167/92 O2 Sat by Pulse 96 97 Oximetry O2 Sat by Pulse Oximetry [ Assessment] 12/21/16 12/21/16 12/21/16 04:30 05:00 05:30 Temperature Pulse Rate 92 H 86 91 H Pulse Rate [ From Monitor] Pulse Rate [ Left Dorsalis Pedis] Pulse Rate [ Left Radial] Pulse Rate [ Right Dorsalis Pedis] Pulse Rate [ Right Radial] Respiratory 19 18 18 Rate Blood Pressure 161/90 161/85 156/88 O2 Sat by Pulse 97 96 97 Oximetry O2 Sat by Pulse Oximetry [ Assessment] 12/21/16 12/21/16 12/21/16 06:00 06:30 06:58 Temperature Pulse Rate 93 H 94 H 89 Pulse Rate [ From Monitor] Pulse Rate [ Left Dorsalis Pedis] Pulse Rate [ Left Radial] Pulse Rate [ Right Dorsalis Pedis] Pulse Rate [ Right Radial] Respiratory 18 19 Rate Blood Pressure 156/88 166/94 156/86 O2 Sat by Pulse 96 97 97 Oximetry O2 Sat by Pulse Oximetry [ Assessment] 12/21/16 12/21/16 12/21/16 07:00 07:02 08:00 Temperature 99.8 F H Pulse Rate 87 85 Pulse Rate [ From Monitor] Pulse Rate [ Left Dorsalis Pedis] Pulse Rate [ Left Radial] Pulse Rate [ Right Dorsalis Pedis] Pulse Rate [ Right Radial] Respiratory 18 19 Rate Blood Pressure 162/86 162/86 O2 Sat by Pulse 96 98 99 Oximetry O2 Sat by Pulse Oximetry [ Assessment] 12/21/16 09:22 Temperature Pulse Rate 92 H Pulse Rate [ From Monitor] Pulse Rate [ Left Dorsalis Pedis] Pulse Rate [ Left Radial] Pulse Rate [ Right Dorsalis Pedis] Pulse Rate [ Right Radial] Respiratory 20 Rate Blood Pressure 156/79 O2 Sat by Pulse 99 Oximetry O2 Sat by Pulse Oximetry [ Assessment] Constitutional: comatose Eyes: other (eyes are covered) ENT: oropharynx dry, other (trach midline) Neck: supple, other (large in circumference) Effort: normal Ascultation: Bilateral: clear Cardiovascular: regular rate and rhythm Gastrointestinal: hypoactive bowel sounds, other (distended, tympanic) Integumentary: normal Extremities: anasarca Neurologic: unable to assess CBC and BMP: 12/19/16 10:40 12/21/16 08:32 ABG, PT/INR, D-dimer: ABG POC ABG pH 7.431 (7.35-7.45) 12/21/16 09:22 POC ABG pCO2 35.7 (35-45) 12/21/16 09:22 POC ABG pO2 96 (80-105) 12/21/16 09:22 POC ABG HCO3 23.8 12/21/16 09:22 POC ABG Total CO2 25 12/21/16 09:22 POC ABG O2 Sat 98 12/21/16 09:22 PT/INR, D-dimer PT 17.6 Sec. (12.2-14.9) H 12/16/16 06:30 INR 1.45 (0.87-1.13) H 12/16/16 06:30 Abnormal lab findings: Abnormal Labs 12/12/16 12/12/16 12/12/16 08:06 12:27 15:23 WBC RBC Hgb Hct Plt Count Lymph % (Auto) Johnson % (Auto) Lymph # Seg Neutrophils % Seg Neutrophils # PT INR POC ABG pH POC ABG pCO2 POC ABG pO2 Sodium Potassium Chloride Carbon Dioxide BUN Creatinine Glucose POC Glucose 299 H 281 H Lactic Acid 4.20 H* Calcium Phosphorus Magnesium AST Alkaline Phosphatase Total Protein Albumin Mgeke-6-Affmkdtta Adlef-8-Fvebmqcxw Beta Globulins Gamma Globulins PEP Interpretation Triglycerides LDL Cholesterol Direct HDL Cholesterol Urine WBC (Auto) RYLAN Screen YRLAN Titer Complement C3 Complement C4 12/12/16 12/12/16 12/12/16 16:53 19:51 20:43 WBC RBC Hgb Hct Plt Count Lymph % (Auto) Johnson % (Auto) Lymph # Seg Neutrophils % Seg Neutrophils # PT INR POC ABG pH POC ABG pCO2 POC ABG pO2 Sodium Potassium Chloride Carbon Dioxide BUN Creatinine Glucose POC Glucose 272 H 238 H Lactic Acid 2.90 H* Calcium Phosphorus Magnesium AST Alkaline Phosphatase Total Protein Albumin Ntril-1-Eyoelnmgi Qsktk-2-Wtphsstae Beta Globulins Gamma Globulins PEP Interpretation Triglycerides LDL Cholesterol Direct HDL Cholesterol Urine WBC (Auto) RYLAN Screen RYLAN Titer Complement C3 Complement C4 12/12/16 12/13/16 12/13/16 21:30 03:39 03:39 WBC RBC Hgb Hct Plt Count 118 L Lymph % (Auto) 7.4 L Johnson % (Auto) 7.6 H Lymph # 0.7 L Seg Neutrophils % 84.7 H Seg Neutrophils # 8.4 H PT INR POC ABG pH POC ABG pCO2 POC ABG pO2 Sodium 133 L Potassium Chloride 96.5 L Carbon Dioxide 18 L BUN 49 H Creatinine 3.1 H D Glucose 173 H POC Glucose Lactic Acid Calcium 8.3 L D Phosphorus Magnesium 1.20 L AST Alkaline Phosphatase Total Protein Albumin 2.6 L Yzpsh-1-Yceaulrtb Bppln-6-Nhdqnilhd Beta Globulins Gamma Globulins PEP Interpretation Triglycerides 166 H LDL Cholesterol Direct 24 L HDL Cholesterol 9 L Urine WBC (Auto) > 182.0 H RYLAN Screen RYLAN Titer Complement C3 Complement C4 12/13/16 12/13/16 12/13/16 07:41 11:53 17:23 WBC RBC Hgb Hct Plt Count Lymph % (Auto) Johnson % (Auto) Lymph # Seg Neutrophils % Seg Neutrophils # PT INR POC ABG pH POC ABG pCO2 POC ABG pO2 Sodium Potassium Chloride Carbon Dioxide BUN Creatinine Glucose POC Glucose 222 H 221 H 247 H Lactic Acid Calcium Phosphorus Magnesium AST Alkaline Phosphatase Total Protein Albumin Kebtj-1-Svogtscki Icwhy-3-Xryrryxwy Beta Globulins Gamma Globulins PEP Interpretation Triglycerides LDL Cholesterol Direct HDL Cholesterol Urine WBC (Auto) RYLAN Screen RYLAN Titer Complement C3 Complement C4 12/13/16 12/14/16 12/14/16 21:29 03:35 03:35 WBC RBC 3.42 L Hgb Hct Plt Count 86 L Lymph % (Auto) 6.1 L Johnson % (Auto) Lymph # 0.3 L Seg Neutrophils % 87.3 H Seg Neutrophils # PT INR POC ABG pH POC ABG pCO2 POC ABG pO2 Sodium 133 L Potassium 5.1 H Chloride 96.2 L Carbon Dioxide 17 L BUN 63 H Creatinine 4.2 H Glucose 136 H POC Glucose 185 H Lactic Acid Calcium 8.1 L Phosphorus Magnesium 1.30 L AST Alkaline Phosphatase Total Protein Albumin Xpzfy-2-Wuexjnnzc Ymtci-9-Jncnrvuvn Beta Globulins Gamma Globulins PEP Interpretation Triglycerides LDL Cholesterol Direct HDL Cholesterol Urine WBC (Auto) RYLAN Screen RYLAN Titer Complement C3 Complement C4 12/14/16 12/14/16 12/14/16 08:32 09:00 09:00 WBC RBC Hgb Hct Plt Count Lymph % (Auto) Johnson % (Auto) Lymph # Seg Neutrophils % Seg Neutrophils # PT INR POC ABG pH POC ABG pCO2 POC ABG pO2 Sodium Potassium Chloride Carbon Dioxide BUN Creatinine Glucose POC Glucose 152 H Lactic Acid Calcium Phosphorus Magnesium AST Alkaline Phosphatase Total Protein Albumin Qcnlb-2-Gnlmckutb Lmkcs-5-Sambzxzjx Beta Globulins Gamma Globulins PEP Interpretation Triglycerides LDL Cholesterol Direct HDL Cholesterol Urine WBC (Auto) RYLAN Screen Positive H RYLAN Titer 1:320 H Complement C3 206 H Complement C4 12/14/16 12/14/16 12/14/16 09:00 09:00 11:50 WBC RBC Hgb Hct Plt Count Lymph % (Auto) Johnson % (Auto) Lymph # Seg Neutrophils % Seg Neutrophils # PT INR POC ABG pH POC ABG pCO2 POC ABG pO2 Sodium Potassium Chloride Carbon Dioxide BUN Creatinine Glucose POC Glucose 168 H Lactic Acid Calcium Phosphorus Magnesium AST Alkaline Phosphatase Total Protein Albumin 2.6 L Otbew-3-Jzvoucrwv 0.7 H Suflg-6-Vvdycgaab 1.0 H Beta Globulins 0.7 H Gamma Globulins 0.7 L PEP Interpretation see below H Triglycerides LDL Cholesterol Direct HDL Cholesterol Urine WBC (Auto) RYLAN Screen RYLAN Titer Complement C3 Complement C4 56 H 12/14/16 12/15/16 12/15/16 17:35 04:35 04:35 WBC 4.1 L RBC 3.39 L Hgb Hct Plt Count 84 L Lymph % (Auto) 8.8 L Johnson % (Auto) Lymph # 0.4 L Seg Neutrophils % 83.6 H Seg Neutrophils # PT INR POC ABG pH POC ABG pCO2 POC ABG pO2 Sodium Potassium 6.0 H Chloride Carbon Dioxide 15 L BUN 79 H Creatinine 5.0 H Glucose POC Glucose 154 H Lactic Acid Calcium 8.0 L Phosphorus 6.70 H D Magnesium AST Alkaline Phosphatase Total Protein Albumin Jippd-2-Wlchtrduy Edseu-2-Uokpaswwn Beta Globulins Gamma Globulins PEP Interpretation Triglycerides LDL Cholesterol Direct HDL Cholesterol Urine WBC (Auto) RYLAN Screen RYLAN Titer Complement C3 Complement C4 12/15/16 12/15/16 12/15/16 07:45 08:13 15:20 WBC RBC Hgb Hct Plt Count Lymph % (Auto) Johnson % (Auto) Lymph # Seg Neutrophils % Seg Neutrophils # PT INR POC ABG pH 7.156 L 7.228 L POC ABG pCO2 48.7 H POC ABG pO2 232 H Sodium Potassium Chloride Carbon Dioxide BUN Creatinine Glucose POC Glucose 113 H Lactic Acid Calcium Phosphorus Magnesium AST Alkaline Phosphatase Total Protein Albumin Jlkvp-3-Uhbauivkg Absia-8-Hknojdfzi Beta Globulins Gamma Globulins PEP Interpretation Triglycerides LDL Cholesterol Direct HDL Cholesterol Urine WBC (Auto) RYLAN Screen RYLAN Titer Complement C3 Complement C4 12/15/16 12/15/16 12/15/16 23:53 Unknown Unknown WBC RBC 3.19 L Hgb 9.6 L Hct 29.8 L Plt Count 108 L Lymph % (Auto) 6.5 L Johnson % (Auto) Lymph # 0.4 L Seg Neutrophils % 87.1 H Seg Neutrophils # PT 16.2 H INR 1.31 H POC ABG pH POC ABG pCO2 POC ABG pO2 Sodium Potassium Chloride Carbon Dioxide BUN Creatinine Glucose POC Glucose 232 H Lactic Acid Calcium Phosphorus Magnesium AST Alkaline Phosphatase Total Protein Albumin Fnwcn-3-Trzcgnwth Rufyh-5-Wgqiwagbo Beta Globulins Gamma Globulins PEP Interpretation Triglycerides LDL Cholesterol Direct HDL Cholesterol Urine WBC (Auto) RYLAN Screen RYLAN Titer Complement C3 Complement C4 12/15/16 12/16/16 12/16/16 Unknown 04:58 05:39 WBC RBC Hgb Hct Plt Count Lymph % (Auto) Johnson % (Auto) Lymph # Seg Neutrophils % Seg Neutrophils # PT INR POC ABG pH POC ABG pCO2 POC ABG pO2 143 H Sodium Potassium Chloride Carbon Dioxide 16 L BUN 85 H Creatinine 4.9 H Glucose 205 H POC Glucose 201 H Lactic Acid Calcium 8.2 L Phosphorus Magnesium AST 77 H Alkaline Phosphatase 136 H Total Protein Albumin 2.3 L Gwvob-9-Xntvfsmnh Mqrkf-3-Nekydcflc Beta Globulins Gamma Globulins PEP Interpretation Triglycerides LDL Cholesterol Direct HDL Cholesterol Urine WBC (Auto) RYLAN Screen RYLAN Titer Complement C3 Complement C4 12/16/16 12/16/16 12/16/16 06:30 06:30 06:30 WBC 4.0 L RBC 3.23 L Hgb 9.6 L Hct 29.8 L Plt Count 110 L Lymph % (Auto) 11.3 L Johnson % (Auto) Lymph # 0.5 L Seg Neutrophils % 81.2 H Seg Neutrophils # PT 17.6 H INR 1.45 H POC ABG pH POC ABG pCO2 POC ABG pO2 Sodium Potassium Chloride Carbon Dioxide 20 L BUN 57 H Creatinine 3.6 H Glucose 176 H POC Glucose Lactic Acid Calcium 8.1 L Phosphorus 4.90 H D Magnesium 1.60 L AST 46 H Alkaline Phosphatase 137 H Total Protein Albumin 2.3 L Vjpel-0-Dieipucxz Abogm-8-Bwrrrufbe Beta Globulins Gamma Globulins PEP Interpretation Triglycerides LDL Cholesterol Direct HDL Cholesterol Urine WBC (Auto) RYLAN Screen RYLAN Titer Complement C3 Complement C4 12/16/16 12/16/16 12/16/16 11:16 15:30 17:23 WBC RBC Hgb Hct Plt Count Lymph % (Auto) Johnson % (Auto) Lymph # Seg Neutrophils % Seg Neutrophils # PT INR POC ABG pH POC ABG pCO2 POC ABG pO2 Sodium Potassium Chloride Carbon Dioxide BUN Creatinine Glucose POC Glucose 194 H 209 H Lactic Acid Calcium Phosphorus Magnesium AST 43 H Alkaline Phosphatase 156 H Total Protein 5.6 L Albumin 2.4 L Wlcpq-3-Gzkeqwtdn Nvlnr-6-Xevimadei Beta Globulins Gamma Globulins PEP Interpretation Triglycerides LDL Cholesterol Direct HDL Cholesterol Urine WBC (Auto) RYLAN Screen RYLAN Titer Complement C3 Complement C4 12/16/16 12/17/16 12/17/16 23:35 03:38 05:18 WBC RBC Hgb Hct Plt Count Lymph % (Auto) Johnson % (Auto) Lymph # Seg Neutrophils % Seg Neutrophils # PT INR POC ABG pH 7.485 H POC ABG pCO2 POC ABG pO2 Sodium Potassium Chloride Carbon Dioxide BUN Creatinine Glucose POC Glucose 179 H 201 H Lactic Acid Calcium Phosphorus Magnesium AST Alkaline Phosphatase Total Protein Albumin Klexc-4-Ssfrxzrrk Gcebf-4-Dxejauxvn Beta Globulins Gamma Globulins PEP Interpretation Triglycerides LDL Cholesterol Direct HDL Cholesterol Urine WBC (Auto) RYLAN Screen RYLAN Titer Complement C3 Complement C4 12/17/16 12/17/16 12/17/16 07:24 12:00 13:58 WBC RBC 3.02 L Hgb 9.2 L Hct 27.2 L Plt Count 100 L Lymph % (Auto) Johnson % (Auto) 7.9 H Lymph # 0.8 L Seg Neutrophils % 75.0 H Seg Neutrophils # PT INR POC ABG pH POC ABG pCO2 POC ABG pO2 Sodium Potassium 3.3 L Chloride Carbon Dioxide BUN 50 H Creatinine 3.1 H Glucose 181 H POC Glucose 176 H Lactic Acid Calcium Phosphorus Magnesium AST Alkaline Phosphatase 155 H Total Protein Albumin 2.2 L Tslvb-0-Dihnyusep Irnwb-6-Ezraumznt Beta Globulins Gamma Globulins PEP Interpretation Triglycerides LDL Cholesterol Direct HDL Cholesterol Urine WBC (Auto) RYLAN Screen RYLAN Titer Complement C3 Complement C4 12/17/16 12/18/16 12/18/16 17:11 00:05 05:40 WBC RBC Hgb Hct Plt Count Lymph % (Auto) Johnson % (Auto) Lymph # Seg Neutrophils % Seg Neutrophils # PT INR POC ABG pH POC ABG pCO2 POC ABG pO2 Sodium Potassium Chloride Carbon Dioxide BUN Creatinine Glucose POC Glucose 152 H 155 H 170 H Lactic Acid Calcium Phosphorus Magnesium AST Alkaline Phosphatase Total Protein Albumin Suacf-5-Vlhbpxepv Jcsig-0-Aadarwayd Beta Globulins Gamma Globulins PEP Interpretation Triglycerides LDL Cholesterol Direct HDL Cholesterol Urine WBC (Auto) RYLAN Screen RYLAN Titer Complement C3 Complement C4 12/18/16 12/18/16 12/18/16 07:52 12:21 15:10 WBC RBC Hgb Hct Plt Count Lymph % (Auto) Johnson % (Auto) Lymph # Seg Neutrophils % Seg Neutrophils # PT INR POC ABG pH POC ABG pCO2 POC ABG pO2 Sodium Potassium 2.9 L* Chloride Carbon Dioxide BUN 69 H Creatinine 4.5 H Glucose 150 H POC Glucose 165 H 130 H Lactic Acid Calcium Phosphorus Magnesium AST Alkaline Phosphatase Total Protein Albumin Tvavq-2-Idqcdxocd Xqiji-6-Cvzcyhzky Beta Globulins Gamma Globulins PEP Interpretation Triglycerides LDL Cholesterol Direct HDL Cholesterol Urine WBC (Auto) RYLAN Screen RYLAN Titer Complement C3 Complement C4 12/18/16 12/18/16 12/19/16 18:43 23:33 03:04 WBC RBC Hgb Hct Plt Count Lymph % (Auto) Johnson % (Auto) Lymph # Seg Neutrophils % Seg Neutrophils # PT INR POC ABG pH 7.455 H POC ABG pCO2 POC ABG pO2 Sodium Potassium Chloride Carbon Dioxide BUN Creatinine Glucose POC Glucose 176 H 174 H Lactic Acid Calcium Phosphorus Magnesium AST Alkaline Phosphatase Total Protein Albumin Oqecb-9-Ftdnifamr Blhar-2-Gjmvmfuxf Beta Globulins Gamma Globulins PEP Interpretation Triglycerides LDL Cholesterol Direct HDL Cholesterol Urine WBC (Auto) RYLAN Screen RYLAN Titer Complement C3 Complement C4 12/19/16 12/19/16 12/19/16 05:47 10:40 10:40 WBC RBC 3.06 L Hgb 9.2 L Hct 28.0 L Plt Count 126 L Lymph % (Auto) Johnson % (Auto) Lymph # Seg Neutrophils % Seg Neutrophils # PT INR POC ABG pH POC ABG pCO2 POC ABG pO2 Sodium Potassium 3.0 L Chloride Carbon Dioxide BUN 55 H Creatinine 3.4 H Glucose 161 H POC Glucose 160 H Lactic Acid Calcium Phosphorus 5.10 H Magnesium AST Alkaline Phosphatase Total Protein Albumin Lejnc-9-Nplhbhwzw Wbqbq-1-Czdejhppf Beta Globulins Gamma Globulins PEP Interpretation Triglycerides LDL Cholesterol Direct HDL Cholesterol Urine WBC (Auto) RYLAN Screen RYLAN Titer Complement C3 Complement C4 12/19/16 12/19/16 12/20/16 13:00 18:04 00:04 WBC RBC Hgb Hct Plt Count Lymph % (Auto) Johnson % (Auto) Lymph # Seg Neutrophils % Seg Neutrophils # PT INR POC ABG pH POC ABG pCO2 POC ABG pO2 Sodium Potassium Chloride Carbon Dioxide BUN Creatinine Glucose POC Glucose 173 H 129 H 152 H Lactic Acid Calcium Phosphorus Magnesium AST Alkaline Phosphatase Total Protein Albumin Gycfh-0-Vrujtasbx Omagg-5-Evgfjaucr Beta Globulins Gamma Globulins PEP Interpretation Triglycerides LDL Cholesterol Direct HDL Cholesterol Urine WBC (Auto) RYLAN Screen RYLAN Titer Complement C3 Complement C4 12/20/16 12/20/16 12/20/16 05:34 05:45 10:47 WBC RBC Hgb Hct Plt Count Lymph % (Auto) Johnson % (Auto) Lymph # Seg Neutrophils % Seg Neutrophils # PT INR POC ABG pH POC ABG pCO2 POC ABG pO2 110 H Sodium Potassium 3.4 L Chloride Carbon Dioxide BUN 72 H Creatinine 4.0 H Glucose 130 H POC Glucose 175 H Lactic Acid Calcium Phosphorus Magnesium AST Alkaline Phosphatase Total Protein Albumin Jisue-6-Qvxmdvrmu Ytyhm-4-Cbmelbmgh Beta Globulins Gamma Globulins PEP Interpretation Triglycerides LDL Cholesterol Direct HDL Cholesterol Urine WBC (Auto) RYLAN Screen RYLAN Titer Complement C3 Complement C4 12/20/16 12/21/16 12/21/16 23:43 05:10 08:32 WBC RBC Hgb Hct Plt Count Lymph % (Auto) Johnson % (Auto) Lymph # Seg Neutrophils % Seg Neutrophils # PT INR POC ABG pH POC ABG pCO2 POC ABG pO2 Sodium 146 H Potassium Chloride Carbon Dioxide BUN 85 H Creatinine 4.3 H Glucose 184 H POC Glucose 193 H 204 H Lactic Acid Calcium Phosphorus Magnesium AST Alkaline Phosphatase Total Protein Albumin Pojnu-4-Qsgcxdmfq Wjbej-3-Zryklugcw Beta Globulins Gamma Globulins PEP Interpretation Triglycerides LDL Cholesterol Direct HDL Cholesterol Urine WBC (Auto) RYLAN Screen RYLAN Titer Complement C3 Complement C4
[2016-12-21] MEDS: LEVEMIR SUB-Q SCH (10:56)
[2016-12-21] MEDS: ASPIRIN PO SCH (10:57)
[2016-12-21] MEDS: PEPCID PO SCH (10:57)
[2016-12-21] MEDS: ROCEPHIN/NS 2 GM/100 ML 2 GM/100 ML BAG IV SCH (10:58)
--- NOTE | 2016-12-21 13:11 | Progress Note ---
Assessment and Plan Assessment and plan: 56-year-old woman with a past medical history of [id number] diabetes , hypertension, chronic intermittent left middle toe infection presented to the hospital with right arm weakness and slurred speech. Patient also has history of frequent falls, chronic left knee pain and osteoarthritis and was planned for knee replacement. She was admitted to the hospital for stroke workup, she was found to have acute kidney injury on admission. Her kidney function continued to worsen, she was planned for CT-guided kidney biopsy on 12/15, but while she was at CT scan, she had an episode of cardiac arrest, she received CPR , unfortunately she had a very difficult airway multiple sclerosis for attempts were tried after which she had an emergency cricothyroidotomy. She most likely had prolonged period of anoxia leading to anoxic brain injury. Her mental status has not improved since then since this incidents she has been comatose. Acute kidney injury * likely secondary to ATN, nephrology input appreciated, continue hemodialysis as needed Toxic metabolic encephalopathy * Due to kidney failure, treating underlying cause Type 2 diabetes * Continue sliding scale Hypertension * BP acceptable, continue current management Metabolic encephalopathy * She had an MRI of her brain on 12/12 did not show any acute changes * However she's not had brain imaging since she had anoxic event on 12/15, for repeat CT head today. Highly suspect anoxic encephalopathy, neurology input appreciated Sepsis secondary to UTI * Continue rocephin, till 12/27 * fever- repeat Blood cultures Gram negative septicemia/sepsis * blood culture growing Klebsiella PNA, which is sensitive to Ceftriaxone * continue rocephin till 12/27 Acute respiratory failure, on MV greater than 96 hours * initially had emergent cricothyroidotomy on 12/15, and then sp tracheostomy on 12/18 * Continue ventilator Abdominal Distension * fup CT abdomen Cardiogenic shock * Has been weaned off pressors Hyperkalemia Resolved with dialysis Hypokalemia Replete judiciously, given that she has TAYA Hypomagnesemia Was replaced . Hyperlipidemia Continue statin Hypothyroidism TSH within normal limits Continue Synthroid at current dose Obesity Hypoventilation/SHELIA continue vent DVT prophylaxis continue heparin Discussed with family and consultants Prognosis is poor. patient will likely need trache and PEG and SNF placement The high probability of a clinically significant, sudden or life threatening deterioration of the [pulmonary, cardiovascular, renal] system(s) required my full and direct attention, intervention and personal management. The aggregate critical care time was [33] minutes. This time is in addition to time spent performing reported procedures but includes the following: [] Data Review and interpretation [] Patient assessment and monitoring of vital signs [] Documentation [] Medication orders and management History Interval history: still comatose, non responsive, non verbal, no purposeful movement Hospitalist Physical - Physical exam Narrative exam: General.: Appears well, no distress, nontoxic HEENT: Moist mucous membranes, extraocular muscles intact, no lymphadenopathy Neck: supple Cardiac: S1-S2 heard Lungs: clear to auscultation bilaterally Abdomen: soft , nontender, nondistended, bowel sounds positive Extremities: no edema clubbing or cyanosis Skin: no rash or lesions Neurologic: comatose, pupils responsive to light, no purposeful movement, trached, not on sedation - Constitutional Vitals: Temp Pulse Resp BP Pulse Ox 99.1 F 85 16 146/74 97 12/21/16 12:00 12/21/16 12:30 12/21/16 12:30 12/21/16 12:30 12/21/16 12:30 General appearance: Present: obese Results - Labs CBC & Chem 7: 12/19/16 10:40 12/21/16 08:32 Labs: Laboratory Last Values WBC 6.9 K/mm3 (4.5-11.0) 12/19/16 10:40 RBC 3.06 M/mm3 (3.65-5.03) L 12/19/16 10:40 Hgb 9.2 gm/dl (10.1-14.3) L 12/19/16 10:40 Hct 28.0 % (30.3-42.9) L 12/19/16 10:40 MCV 92 fl (79-97) 12/19/16 10:40 MCH 30 pg (28-32) 12/19/16 10:40 MCHC 33 % (30-34) 12/19/16 10:40 RDW 14.8 % (13.2-15.2) 12/19/16 10:40 Plt Count 126 K/mm3 (140-440) L 12/19/16 10:40 Lymph % (Auto) 16.1 % (13.4-35.0) 12/17/16 13:58 [place] % (Auto) 7.9 % (0.0-7.3) H 12/17/16 13:58 Eos % (Auto) 0.8 % (0.0-4.3) 12/17/16 13:58 Baso % (Auto) 0.2 % (0.0-1.8) 12/17/16 13:58 Lymph # 0.8 K/mm3 (1.2-5.4) L 12/17/16 13:58 [place] # 0.4 K/mm3 (0.0-0.8) 12/17/16 13:58 Eos # 0.0 K/mm3 (0.0-0.4) 12/17/16 13:58 Baso # 0.0 K/mm3 (0.0-0.1) 12/17/16 13:58 Seg Neutrophils % 75.0 % (40.0-70.0) H 12/17/16 13:58 Seg Neutrophils # 3.9 K/mm3 (1.8-7.7) 12/17/16 13:58 PT 17.6 Sec. (12.2-14.9) H 12/16/16 06:30 INR 1.45 (0.87-1.13) H 12/16/16 06:30 APTT 27.6 Sec. (24.2-36.6) 12/11/16 23:50 Thrombin Time 16.6 Sec. (15.1-19.6) 12/11/16 23:50 POC ABG pH 7.431 (7.35-7.45) 12/21/16 09:22 POC ABG pCO2 35.7 (35-45) 12/21/16 09:22 POC ABG pO2 96 (80-105) 12/21/16 09:22 POC ABG HCO3 23.8 12/21/16 09:22 POC ABG Total CO2 25 12/21/16 09:22 POC ABG O2 Sat 98 12/21/16 09:22 POC ABG Base Excess -1 12/21/16 09:22 FiO2 30 % 12/21/16 09:22 Sodium 146 mmol/L (137-145) H 12/21/16 08:32 Potassium 3.6 mmol/L (3.6-5.0) 12/21/16 08:32 Chloride 105.2 mmol/L (98-107) 12/21/16 08:32 Carbon Dioxide 22 mmol/L (22-30) 12/21/16 08:32 Anion Gap 22 mmol/L 12/21/16 08:32 BUN 85 mg/dL (7-17) H 12/21/16 08:32 Creatinine 4.3 mg/dL (0.7-1.2) H 12/21/16 08:32 Estimated GFR 11 ml/min 12/21/16 08:32 BUN/Creatinine Ratio 19.76 % 12/21/16 08:32 Glucose 184 mg/dL (65-100) H 12/21/16 08:32 POC Glucose 204 (70-105) H 12/21/16 05:10 Lactic Acid 1.80 mmol/L (0.7-2.0) 12/15/16 Unknown Calcium 8.8 mg/dL (8.4-10.2) 12/21/16 08:32 Phosphorus 5.10 mg/dL (2.5-4.5) H 12/19/16 10:40 Magnesium 1.80 mg/dL (1.7-2.3) 12/19/16 10:40 Total Bilirubin 0.30 mg/dL (0.1-1.2) 12/17/16 07:24 Direct Bilirubin < 0.2 mg/dL (0-0.2) 12/16/16 15:30 Indirect Bilirubin 0.0 mg/dL 12/16/16 15:30 AST 40 units/L (5-40) 12/17/16 07:24 ALT 27 units/L (7-56) 12/17/16 07:24 Alkaline Phosphatase 155 units/L (35-129) H 12/17/16 07:24 Total Creatine Kinase 73 units/L (30-135) 12/15/16 04:35 Troponin T < 0.010 ng/mL (0.00-0.029) 12/11/16 23:50 Serum Total Protein 6.1 g/dL (6.1-8.1) 12/14/16 09:00 Total Protein 6.3 g/dL (6.3-8.2) 12/17/16 07:24 Albumin 2.2 g/dL (3.9-5) L 12/17/16 07:24 Albumin/Globulin Ratio 0.5 % 12/17/16 07:24 Zvydu-5-Gfyixqcei 0.7 g/dL (0.2-0.3) H 12/14/16 09:00 Lwvia-2-Tmivzmxje 1.0 g/dL (0.5-0.9) H 12/14/16 09:00 Beta Globulins 0.7 g/dL (0.2-0.5) H 12/14/16 09:00 Gamma Globulins 0.7 g/dL (0.8-1.7) L 12/14/16 09:00 Abnorm Protein Band 1 see below 12/14/16 09:00 PEP Interpretation see below H 12/14/16 09:00 Triglycerides 166 mg/dL (2-149) H 12/13/16 03:39 Cholesterol 66 mg/dL (50-199) 12/13/16 03:39 LDL Cholesterol Direct 24 mg/dL (50-130) L 12/13/16 03:39 HDL Cholesterol 9 mg/dL (40-59) L 12/13/16 03:39 Cholesterol/HDL Ratio 7.33 % 12/13/16 03:39 TSH 2.640 mlU/mL (0.270-4.200) 12/12/16 15:23 Urine Color Yellow (Yellow) 12/12/16 21:30 Urine Turbidity Turbid (Clear) 12/12/16 21:30 Urine pH 5.0 (5.0-7.0) 12/12/16 21:30 Ur Specific [place] 1.015 (1.003-1.030) 12/12/16 21:30 Urine Protein 100 mg/dl mg/dL (Negative) 12/12/16 21:30 Urine Glucose (UA) Neg mg/dL (Negative) 12/12/16 21:30 Urine Ketones Neg mg/dL (Negative) 12/12/16 21:30 Urine Blood Lg (Negative) 12/12/16 21:30 Urine Nitrite Neg (Negative) 12/12/16 21:30 Urine Bilirubin Neg (Negative) 12/12/16 21:30 Urine Urobilinogen < 2.0 mg/dL (<2.0) 12/12/16 21:30 Ur Leukocyte Esterase Lg (Negative) 12/12/16 21:30 Urine WBC (Auto) > 182.0 /HPF (0.0-6.0) H 12/12/16 21:30 Urine RBC (Auto) 62.0 /HPF (0.0-6.0) 12/12/16 21:30 U Epithel Cells (Auto) 7.0 /HPF (0-13.0) 12/12/16 21:30 Urine Bacteria (Auto) 4+ /HPF (Negative) 12/12/16 21:30 Urine WBC Clumps 3+ /HPF 12/12/16 21:30 Calcium Oxalate Crystal 3+ 12/12/16 21:30 Urine Opiates Screen Presumptive negative 12/12/16 21:30 Urine Methadone Screen Presumptive negative 12/12/16 21:30 Ur Barbiturates Screen Presumptive negative 12/12/16 21:30 Ur Phencyclidine Scrn Presumptive negative 12/12/16 21:30 Ur Amphetamines Screen Presumptive negative 12/12/16 21:30 U Benzodiazepines Scrn Presumptive negative 12/12/16 21:30 Urine Cocaine Screen Presumptive negative 12/12/16 21:30 U Marijuana (THC) Screen Presumptive negative 12/12/16 21:30 Drugs of Abuse Note Disclamer 12/12/16 21:30 RYLAN Screen Positive (Negative) H 12/14/16 09:00 RYLAN Titer 1:320 (Negative) H 12/14/16 09:00 RYLAN Pattern Homogeneous 12/14/16 09:00 Proteinase 3 (PR3) Ab <1.0 AI (<1.0) 12/14/16 09:00 Myeloperoxidase Ab <1.0 AI (<1.0) 12/14/16 09:00 Glomerular Base Mem IgG <1.0 AI (<1.0) 12/14/16 09:00 Complement C3 206 mg/dL (90-180) H 12/14/16 09:00 Complement C4 56 mg/dL (16-47) H 12/14/16 09:00 Hepatitis A IgM Ab Non-reactive (NonReactive) 12/18/16 18:30 Hep Bs Antigen Non-reactive (Negative) 12/18/16 18:30 Hep B Core IgM Ab Non-reactive (NonReactive) 12/18/16 18:30 Hepatitis C Antibody Non-reactive (NonReactive) 12/18/16 18:30 Renal Biopsy Scanned into [facility] rec 12/15/16 13:43
--- NOTE | 2016-12-21 13:40 | Magnetic Resonance Report ---
MRI OF THE BRAIN WITHOUT CONTRAST: HISTORY: CVA, diffuse anoxic injury PROCEDURE: Multiplanar, multisequence MR imaging of the brain without IV contrast was performed. FINDINGS: Previous CT heads were reviewed with the most recent being 12/19/16. MRI demonstrates suggestion of a minimal diffusion restriction in the subinsular regions bilaterally, right greater than left. There is also suggestion of very subtle diffusion restriction in the caudate nuclei and posterior right hippocampus. This probably represents small areas of anoxic injury due to the patient's history of prolonged resuscitation/CPR. There is no evidence for mass effect or significant brain edema. The oakley-white interface is well defined. No evidence for hemorrhage. Mild diffuse volume loss is again noted. No chronic infarct. Ventricular size is within normal limits. No extra-axial fluid collection. The posterior fossa remains unremarkable. Minimal mucosal thickening is noted in the maxillary and sphenoid sinuses. The remaining sinuses and mastoid air cells are clear. IMPRESSION: There is suggestion of very subtle ischemic injury in the subinsular regions, caudate nuclei and right posterior hippocampus. This could be related to anoxic injury. No evidence for hemorrhage, significant brain edema or mass effect.
--- NOTE | 2016-12-21 13:41 | Magnetic Resonance Report ---
MRA HEAD WITHOUT CONTRAST HISTORY: CVA. Ompd-lv-qewshy imaging with MIP reformations of the [place] of [place] is submitted. The arteries appear widely patent and free of hemodynamically significant stenosis or aneurysm dilatation. Both vertebral arteries are identified appearing patent as well. IMPRESSION: Unremarkable MRA head.
--- NOTE | 2016-12-21 14:32 | Progress Note ---
Assessment and Plan - Patient Problems (1) Acute kidney failure with tubular necrosis Current Visit: Yes Status: Acute Plan to address problem: Biopsy-proven Acute tubular necrosis. Still dialysis requiring. Continue current treatments. Continue to monitor for renal recovery. Hemodialysis in the morning (2) Type 2 diabetes mellitus Current Visit: Yes Status: Acute Qualifiers: Diabetes mellitus complication status: D Diabetes mellitus complication detail: D Diabetic retinopathy severity: D Proliferative retinopathy type: P Diabetes mellitus macular edema: D Diabetes mellitus medical terminologist insulin use : D Laterality: L Chronic kidney disease stage: C Plan to address problem: Blood sugar control by primary attending (3) Hypertension Current Visit: Yes Status: Acute Qualifiers: Hypertension type: H Plan to address problem: Hypotension resolved. Blood pressure now creeping up. Monitor closely. Start hypotensive medications if blood pressure becomes elevated. We'll add low-dose beta ariana with parameters to hold (4) Anoxic encephalopathy Current Visit: Yes Status: Acute Plan to address problem: Continue management by neurologist. [place] for improvement in neurologic status (5) Sepsis due to urinary tract infection Current Visit: Yes Status: Acute Plan to address problem: Continue antibiotics and follow Subjective Date of service: 12/21/16 Principal diagnosis: Coma Interval history: Patient seen lying in bed. Trach intact on ventilator. Not interacting Objective - Exam Narrative Exam: Middle-aged obese female lying in bed, not interacting NCAT, Tracheostomy tube intact on the ventilator, Cardiovascular S1-S2 regular rate Chest clear to auscultation Abdomen obese, soft, nontender Extremities mild edema - Vital Signs Vital signs: Vital Signs - 12hr 12/21/16 12/21/16 12/21/16 02:30 03:00 03:16 Temperature Pulse Rate 87 92 H Pulse Rate [ 76 From Monitor] Pulse Rate [ 76 Left Dorsalis Pedis] Pulse Rate [ 76 Left Radial] Pulse Rate [ 76 Right Radial] Respiratory 18 15 14 Rate Blood Pressure 161/86 166/90 O2 Sat by Pulse 96 96 Oximetry O2 Sat by Pulse Oximetry [ Assessment] 12/21/16 12/21/16 12/21/16 03:30 03:56 04:00 Temperature 100.4 F H Pulse Rate 89 92 H Pulse Rate [ From Monitor] Pulse Rate [ Left Dorsalis Pedis] Pulse Rate [ Left Radial] Pulse Rate [ Right Radial] Respiratory 17 18 Rate Blood Pressure 165/87 167/92 O2 Sat by Pulse 96 97 Oximetry O2 Sat by Pulse Oximetry [ Assessment] 12/21/16 12/21/16 12/21/16 04:30 05:00 05:30 Temperature Pulse Rate 92 H 86 91 H Pulse Rate [ From Monitor] Pulse Rate [ Left Dorsalis Pedis] Pulse Rate [ Left Radial] Pulse Rate [ Right Radial] Respiratory 19 18 18 Rate Blood Pressure 161/90 161/85 156/88 O2 Sat by Pulse 97 96 97 Oximetry O2 Sat by Pulse Oximetry [ Assessment] 12/21/16 12/21/16 12/21/16 06:00 06:30 06:58 Temperature Pulse Rate 93 H 94 H 89 Pulse Rate [ From Monitor] Pulse Rate [ Left Dorsalis Pedis] Pulse Rate [ Left Radial] Pulse Rate [ Right Radial] Respiratory 18 19 Rate Blood Pressure 156/88 166/94 156/86 O2 Sat by Pulse 96 97 97 Oximetry O2 Sat by Pulse Oximetry [ Assessment] 12/21/16 12/21/16 12/21/16 07:00 07:02 07:30 Temperature Pulse Rate 87 85 83 Pulse Rate [ From Monitor] Pulse Rate [ Left Dorsalis Pedis] Pulse Rate [ Left Radial] Pulse Rate [ Right Radial] Respiratory 18 19 17 Rate Blood Pressure 162/86 162/86 135/70 O2 Sat by Pulse 96 98 98 Oximetry O2 Sat by Pulse Oximetry [ Assessment] 12/21/16 12/21/16 12/21/16 08:00 08:30 09:00 Temperature 99.8 F H Pulse Rate 87 89 91 H Pulse Rate [ From Monitor] Pulse Rate [ Left Dorsalis Pedis] Pulse Rate [ Left Radial] Pulse Rate [ Right Radial] Respiratory 16 17 16 Rate Blood Pressure 151/77 145/73 156/79 O2 Sat by Pulse 96 96 97 Oximetry O2 Sat by Pulse Oximetry [ Assessment] 12/21/16 12/21/16 12/21/16 09:22 09:30 10:00 Temperature Pulse Rate 92 H 86 84 Pulse Rate [ From Monitor] Pulse Rate [ Left Dorsalis Pedis] Pulse Rate [ Left Radial] Pulse Rate [ Right Radial] Respiratory 20 16 18 Rate Blood Pressure 156/79 157/80 141/72 O2 Sat by Pulse 99 97 97 Oximetry O2 Sat by Pulse Oximetry [ Assessment] 12/21/16 12/21/16 12/21/16 10:30 11:00 12:00 Temperature 99.1 F Pulse Rate 94 H 94 H Pulse Rate [ From Monitor] Pulse Rate [ Left Dorsalis Pedis] Pulse Rate [ Left Radial] Pulse Rate [ Right Radial] Respiratory 19 16 Rate Blood Pressure 154/86 159/81 O2 Sat by Pulse 96 96 Oximetry O2 Sat by Pulse Oximetry [ Assessment] 12/21/16 12/21/16 12/21/16 12:20 12:21 12:30 Temperature Pulse Rate 97 H 103 H 85 Pulse Rate [ From Monitor] Pulse Rate [ Left Dorsalis Pedis] Pulse Rate [ Left Radial] Pulse Rate [ Right Radial] Respiratory 19 16 Rate Blood Pressure 158/81 146/74 O2 Sat by Pulse 98 97 Oximetry O2 Sat by Pulse Oximetry [ Assessment] 12/21/16 13:21 Temperature Pulse Rate Pulse Rate [ From Monitor] Pulse Rate [ Left Dorsalis Pedis] Pulse Rate [ Left Radial] Pulse Rate [ Right Radial] Respiratory Rate Blood Pressure O2 Sat by Pulse Oximetry O2 Sat by Pulse 98 Oximetry [ Assessment] - Lab 12/19/16 10:40 12/21/16 08:32 Most recent lab results Calcium 8.8 mg/dL (8.4-10.2) 12/21/16 08:32 Phosphorus 5.10 mg/dL (2.5-4.5) H 12/19/16 10:40 Magnesium 1.80 mg/dL (1.7-2.3) 12/19/16 10:40
[2016-12-21] MEDS: TYLENOL PO PRN (16:06)
[2016-12-21] MEDS: ZOCOR PO SCH (21:41)
[2016-12-21] MEDS: COREG PO SCH (21:42)
[2016-12-22] MEDS: NOVOLOG SUB-Q SCH ×4 (00:07→17:22)
[2016-12-22] MEDS: HEPARIN SUB-Q SCH ×3 (06:20→21:22)
[2016-12-22 07:24] LABS: BUN/Creatinine Ratio 19.77; Calcium 9.1 mg/dL (8.4-10.2); Potassium 3.3 mmol/L (3.6-5.0)
--- NOTE | 2016-12-22 08:57 | XRay Report ---
Portable chest: Respiratory failure. Comparison is made to the prior exam of December 21. The lungs are hypoventilated and there is mild compression of the bronchovascular markings bilaterally. No discrete infiltrate nor nodule identified. The tracheostomy, nasogastric, and left jugular central venous lines remain in good positions. Impressions: No interval change.
[2016-12-22] MEDS: ASPIRIN PO SCH (10:19)
[2016-12-22] MEDS: COREG PO SCH ×2 (10:19→21:23)
[2016-12-22] MEDS: PEPCID PO SCH (10:20)
[2016-12-22] MEDS: ROCEPHIN/NS 2 GM/100 ML 2 GM/100 ML BAG IV SCH (10:20)
[2016-12-22] MEDS: LEVEMIR SUB-Q SCH (10:20)
[2016-12-22] MEDS ORDERED: ALBURX 25% (ALBUMIN) IV PRN (12:57)
[2016-12-22] MEDS ORDERED: NACL 0.9% 100 ML IV PRN (12:57)
--- NOTE | 2016-12-22 12:59 | Progress Note ---
Assessment and Plan - Patient Problems (1) Acute kidney failure with tubular necrosis Current Visit: Yes Status: Acute Plan to address problem: Biopsy-proven Acute tubular necrosis. Still dialysis requiring. Continue current treatments. Continue to monitor for renal recovery. Hemodialysis today and then Thursday, Thursday and Thursday (2) Type 2 diabetes mellitus Current Visit: Yes Status: Acute Qualifiers: Diabetes mellitus complication status: D Diabetes mellitus complication detail: D Diabetic retinopathy severity: D Proliferative retinopathy type: P Diabetes mellitus macular edema: D Diabetes mellitus correction insulin use : D Laterality: L Chronic kidney disease stage: C Plan to address problem: Blood sugar control by primary attending (3) Hypertension Current Visit: Yes Status: Acute Qualifiers: Hypertension type: H Plan to address problem: Hypotension resolved. Blood pressure improved on low-dose beta ariana with parameters to hold (4) Anoxic encephalopathy Current Visit: Yes Status: Acute Plan to address problem: Continue management by neurologist. [place] for improvement in neurologic status (5) Sepsis due to urinary tract infection Current Visit: Yes Status: Acute Plan to address problem: Continue antibiotics and follow Subjective Date of service: 12/22/16 Principal diagnosis: Coma Interval history: Patient seen lying in bed. Trach intact on ventilator. Not interacting Objective - Exam Narrative Exam: Middle-aged obese female lying in bed, not interacting NCAT, Tracheostomy tube intact on the ventilator, Cardiovascular S1-S2 regular rate Chest clear to auscultation Abdomen obese, soft, nontender Extremities mild edema Neuro -Not opening eyes to stimuli, - Vital Signs Vital signs: Vital Signs - 12hr 12/22/16 12/22/16 12/22/16 01:00 01:30 02:00 Temperature Pulse Rate 87 90 88 Pulse Rate [ From Monitor] Pulse Rate [ Left Dorsalis Pedis] Pulse Rate [ Left Radial] Pulse Rate [ Right Dorsalis Pedis] Pulse Rate [ Right Radial] Respiratory 15 17 18 Rate Blood Pressure 141/76 139/75 140/75 O2 Sat by Pulse 97 98 96 Oximetry 12/22/16 12/22/16 12/22/16 02:30 03:00 03:11 Temperature Pulse Rate 81 87 90 Pulse Rate [ From Monitor] Pulse Rate [ Left Dorsalis Pedis] Pulse Rate [ Left Radial] Pulse Rate [ Right Dorsalis Pedis] Pulse Rate [ Right Radial] Respiratory 16 22 Rate Blood Pressure 140/75 148/68 148/68 O2 Sat by Pulse 98 96 96 Oximetry 12/22/16 12/22/16 12/22/16 03:30 03:44 04:00 Temperature 100.9 F H Pulse Rate 90 82 Pulse Rate [ 88 From Monitor] Pulse Rate [ 88 Left Dorsalis Pedis] Pulse Rate [ 88 Left Radial] Pulse Rate [ 88 Right Dorsalis Pedis] Pulse Rate [ 88 Right Radial] Respiratory 18 13 Rate Blood Pressure 148/68 145/79 O2 Sat by Pulse 97 96 Oximetry 12/22/16 12/22/16 12/22/16 04:30 05:00 05:30 Temperature Pulse Rate 77 88 81 Pulse Rate [ From Monitor] Pulse Rate [ Left Dorsalis Pedis] Pulse Rate [ Left Radial] Pulse Rate [ Right Dorsalis Pedis] Pulse Rate [ Right Radial] Respiratory 13 15 14 Rate Blood Pressure 145/79 140/75 140/75 O2 Sat by Pulse 98 97 98 Oximetry 12/22/16 12/22/16 12/22/16 05:49 06:00 06:30 Temperature Pulse Rate 86 85 87 Pulse Rate [ From Monitor] Pulse Rate [ Left Dorsalis Pedis] Pulse Rate [ Left Radial] Pulse Rate [ Right Dorsalis Pedis] Pulse Rate [ Right Radial] Respiratory 15 14 19 Rate Blood Pressure 140/78 143/69 143/69 O2 Sat by Pulse 98 96 98 Oximetry 12/22/16 12/22/16 12/22/16 07:00 07:30 08:00 Temperature 99.6 F Pulse Rate 88 89 93 H Pulse Rate [ From Monitor] Pulse Rate [ Left Dorsalis Pedis] Pulse Rate [ Left Radial] Pulse Rate [ Right Dorsalis Pedis] Pulse Rate [ Right Radial] Respiratory 16 17 14 Rate Blood Pressure 142/71 142/71 140/74 O2 Sat by Pulse 97 98 96 Oximetry 12/22/16 12/22/16 12/22/16 08:09 08:30 09:00 Temperature Pulse Rate 94 H 95 H 92 H Pulse Rate [ From Monitor] Pulse Rate [ Left Dorsalis Pedis] Pulse Rate [ Left Radial] Pulse Rate [ Right Dorsalis Pedis] Pulse Rate [ Right Radial] Respiratory 18 19 18 Rate Blood Pressure 140/74 140/74 135/73 O2 Sat by Pulse 98 98 96 Oximetry 12/22/16 12/22/16 12/22/16 09:30 10:00 10:19 Temperature Pulse Rate 93 H 92 H 94 H Pulse Rate [ From Monitor] Pulse Rate [ Left Dorsalis Pedis] Pulse Rate [ Left Radial] Pulse Rate [ Right Dorsalis Pedis] Pulse Rate [ Right Radial] Respiratory 17 17 Rate Blood Pressure 135/73 139/69 139/69 O2 Sat by Pulse 98 96 Oximetry 12/22/16 12/22/16 12/22/16 10:30 11:00 11:27 Temperature Pulse Rate 98 H 92 H 93 H Pulse Rate [ From Monitor] Pulse Rate [ Left Dorsalis Pedis] Pulse Rate [ Left Radial] Pulse Rate [ Right Dorsalis Pedis] Pulse Rate [ Right Radial] Respiratory 17 19 20 Rate Blood Pressure 139/69 137/70 137/70 O2 Sat by Pulse 98 97 98 Oximetry 12/22/16 12/22/16 11:30 12:00 Temperature 102.6 F H Pulse Rate 94 H 94 H Pulse Rate [ From Monitor] Pulse Rate [ Left Dorsalis Pedis] Pulse Rate [ Left Radial] Pulse Rate [ Right Dorsalis Pedis] Pulse Rate [ Right Radial] Respiratory 18 20 Rate Blood Pressure 137/70 144/72 O2 Sat by Pulse 98 96 Oximetry - Lab 12/19/16 10:40 12/22/16 06:30 Most recent lab results Calcium 9.1 mg/dL (8.4-10.2) 12/22/16 06:30 Phosphorus 5.10 mg/dL (2.5-4.5) H 12/19/16 10:40 Magnesium 1.80 mg/dL (1.7-2.3) 12/19/16 10:40
--- NOTE | 2016-12-22 13:42 | Consultation ---
History of Present Illness - Reason for Consult Consult date: 12/22/16 sepsis - History of Present Illness 56 years old female with history of obesity, diabetes, hypertension, frequent falls; initially admitted on 12/11/16 due to AMS, confusion. Per she did not have a recent fever, chills, N?/V/D. In the ED, temp 99.2, HR 112, BP 108/36. WBC 15K. CR 1.9. lactate 4.2. UA c/w UTI. RYLAN positive 1:320. Blood cultures grew Klebsiella and urine culture grew the same. By 12/11, fever was noted at 100.3-100.7, by 12/20 she spiked at 101.2 and today at 102.6. She was started on ceftriaxone and noted to have TAYA. She had a CT-guided kidney biopsy on 12/15, but while she was at CT scan, she had an episode of cardiac arrest, she received CPR, unfortunately she had a very difficult airway needing an emergency cricothyroidotomy. TTE was negative for vegetations. US renal was negative. Current Antimicrobials: ceftriaxone 12/16 Previous Antimicrobials: Microbiology: Blood cultures: 12/12 Klebsiella 9/2 neg Urine cultures: 12/13 Klebsiella 9/3 Lyndsay Respiratory cultures: 12/15 Lyndsay Wound cultures: Stool cultures: Other: Past History Past Medical History: diabetes, hypertension, other (frequent falls ) Social history: other (lives with ). denies: smoking, alcohol abuse, IV drug use Family history: no significant family history Medications and Allergies Allergies Allergy/AdvReac Type Severity Reaction Status Date / Time sulfamethoxazole Allergy Unknown Verified 12/11/16 23:49 [From Bactrim] trimethoprim [From Bactrim] Allergy Unknown Verified 12/11/16 23:49 Home Medications Medication Instructions Recorded Confirmed Last Taken Type Amitriptyline [Elavil] 100 mg PO QHS 12/12/16 12/12/16 12/11/16 History Atenolol [Tenormin] 50 mg PO DAILY 12/12/16 12/12/16 12/11/16 History Gabapentin [Neurontin] 800 mg PO Q8H 12/12/16 12/12/16 12/11/16 History HYDROcodone/APAP 5-325 [[place] 1 each PO Q6HR PRN 12/12/16 12/12/16 12/11/16 History 5/325] Levothyroxine [Synthroid] 100 mcg PO QAM 12/12/16 12/12/16 12/11/16 History Lisinopril [Zestril] 20 mg PO QDAY 12/12/16 12/12/16 12/11/16 History Simvastatin [Zocor TAB] 40 mg PO QHS 12/12/16 12/12/16 12/11/16 History glipiZIDE [Glucotrol] 10 mg PO BID 12/12/16 12/12/16 12/11/16 History metFORMIN [Glucophage] 1,000 mg PO BID 12/12/16 12/12/16 12/11/16 History metFORMIN [Glucophage] 500 mg PO QDAY 12/12/16 12/12/16 12/11/16 History Active Meds: Active Medications Acetaminophen (Tylenol) 650 mg PO Q4H PRN PRN Reason: Pain, Mild (1-3) Last Admin: 12/21/16 16:06 Dose: 650 mg Albumin Human ([place]x 25% (Albumin)) 12.5 gm IV DIPESH PRN PRN Reason: Hypotension Lipase/Protease/Amylase (Pancreaze Dr 10,500 Unit) 1 each FEEDTUBE PRN PRN PRN Reason: For Clogged Feeding Tube Artificial Tears (Isopto Tears 0.5%) 2 drops OU Q4H PRN PRN Reason: Dry Eye(s) Last Admin: 12/16/16 05:25 Dose: 2 drops Aspirin (Aspirin) 325 mg PO QDAY [facility] Last Admin: 12/22/16 10:19 Dose: 325 mg Bisacodyl (Dulcolax) 10 mg [place] QDAY PRN PRN Reason: Constipation Carvedilol (Coreg) 3.125 mg PO BID [facility] Last Admin: 12/22/16 10:19 Dose: 3.125 mg Dextrose (D50w (25gm)) 50 ml IV PRN PRN PRN Reason: Hypoglycemia Last Admin: 12/15/16 10:25 Dose: 50 ml Famotidine (Pepcid) 20 mg PO DAILY [facility] Last Admin: 12/22/16 10:20 Dose: 20 mg Heparin Sodium (Porcine) (Heparin) 5,000 unit SUB-Q Q8HR [facility] Last Admin: 12/22/16 13:04 Dose: 5,000 unit Heparin Sodium (Porcine) (Heparin) 5,000 unit IV DIPESH PRN PRN Reason: dwell Last Admin: 12/16/16 16:04 Dose: 5,000 unit Hydralazine HCl (Apresoline) 5 mg IV Q6H PRN PRN Reason: Keep SBP between 160-185 mm Hg Sodium Chloride (Nacl 0.9%) 100 mls @ 999 mls/hr IV DIPESH PRN PRN Reason: Hypotension Norepinephrine (Levophed Drip 4 Mg/Ns 250 Ml) 4 mg in 250 mls @ 7.5 mls/hr IV TITR LENARD; 2 MCG/MIN PRN Reason: Protocol Last Titration: 12/16/16 17:00 Dose: Infused Ceftriaxone Sodium (Rocephin/Ns 2 Gm/100 Ml) 2 gm in 100 mls @ 200 mls/hr IV Q24HR LENARD Stop: 12/29/16 10:29 Last Admin: 12/22/16 10:20 Dose: 200 mls/hr Sodium Chloride (Nacl 0.9%) 100 mls @ 999 mls/hr IV DIPESH PRN PRN Reason: Hypotension Insulin Aspart (Novolog) 0 units SUB-Q Q6HR LENARD PRN Reason: Protocol Last Admin: 12/22/16 13:04 Dose: 4 units Insulin Detemir (Levemir) 5 units SUB-Q DAILY [facility] Last Admin: 12/22/16 10:20 Dose: 5 units Magnesium Hydroxide (Milk Of Magnesia) 30 ml PO Q4H PRN PRN Reason: Constipation Ondansetron HCl (Zofran) 4 mg IV Q8H PRN PRN Reason: N/V unrelieved by Reglan Simple Syrup (Simple Syrup) 15 ml FEEDTUBE PRN PRN PRN Reason: Hypoglycemia Simple Syrup (Simple Syrup) 30 ml FEEDTUBE PRN PRN PRN Reason: Hypoglycemia Simvastatin (Zocor) 20 mg PO QHS [facility] Last Admin: 12/21/16 21:41 Dose: 20 mg Sodium Bicarbonate (Sodium Bicarbonate) 325 mg FEEDTUBE PRN PRN PRN Reason: For Clogged Feeding Tube Sodium Chloride (Sodium Chloride Flush Syringe 10 Ml) 10 ml IV PRN PRN PRN Reason: LINE FLUSH Physical Examination - Physical Exam Narrative exam: General appearance: lethargic on the vent Eyes: anicteric sclerae, moist conjunctivae; PERRLA HENT: Atraumatic; oropharynx limited Neck: Trach Lungs: suzan rhonchi CV: RRR, no murmurs Abdomen: Soft, distended Extremities: + edema, no extremity lymphadenopathy Skin: Normal temperature, turgor and texture; no rash, ulcers or subcutaneous nodules Psych: lethargic. Neuro: lethargic, not moving extremities Lines: - Constitutional Vitals: Vital Signs Temp Pulse Resp BP Pulse Ox 102.6 F H 94 H 20 144/72 96 12/22/16 12:00 12/22/16 12:00 12/22/16 12:00 12/22/16 12:00 12/22/16 12:00 Temperature -Last 24 Hours Temperature 102.6 F Temperature 99.6 F Temperature 100.9 F Temperature 99.8 F Temperature 98.8 F Temperature 101.2 F Results - Labs CBC & Chem 7: 12/19/16 10:40 12/22/16 06:30 Labs: Abnormal lab results 12/21/16 12/21/16 12/22/16 Range/Units 18:06 23:31 05:38 Sodium (137-145) mmol/L Potassium (3.6-5.0) mmol/L BUN (7-17) mg/dL Creatinine (0.7-1.2) mg/dL Glucose (65-100) mg/dL POC Glucose 184 H 191 H 182 H (70-105) 12/22/16 12/22/16 Range/Units 06:30 12:23 Sodium 148 H (137-145) mmol/L Potassium 3.3 L (3.6-5.0) mmol/L BUN 87 H (7-17) mg/dL Creatinine 4.4 H (0.7-1.2) mg/dL Glucose 186 H (65-100) mg/dL POC Glucose 205 H (70-105) Assessment and Plan Assessment: 1) Sepsis: Present on admission, manifested by fever, leukocytosis and increase lactate. Etiology most likely UTI/bacteremia. However, noted persistent fever despite appropriate IV antibiotic coverage ? VAP ? GI ? lupus flare ? central 2) Complicated UTI: Secondary to Klebsiella. renal US normal 3) Klebsiella bacteremia: from UTI 4) ?Lupus flare Plan: -follow-up blood cultures -check respiratory cultures -obtain procalcitonin, C-reactive protein (CRP) -legs US r/o DVT -check LFTs -stop ceftriaxone -start cefepime and add vancomycin renally dosed until w/u is back -if not better in 1-2 days will consider chest and abdominal imaging Thank you Dr Dumas for your consultation, will follow up with you. Leta Xavier MD Infectious Diseases Specialist [facility] ([facility] M [phone] O [phone]
--- NOTE | 2016-12-22 13:59 | Progress Note ---
Assessment and Plan Assessment and plan: 56-year-old woman with a past medical history of [id number] diabetes , hypertension, chronic intermittent left middle toe infection presented to the hospital with right arm weakness and slurred speech. Patient also has history of frequent falls, chronic left knee pain and osteoarthritis and was planned for knee replacement. She was admitted to the hospital for stroke workup, she was found to have acute kidney injury on admission. Her kidney function continued to worsen, she was planned for CT-guided kidney biopsy on 12/15, but while she was at CT scan, she had an episode of cardiac arrest, she received CPR , unfortunately she had a very difficult airway multiple sclerosis for attempts were tried after which she had an emergency cricothyroidotomy. She most likely had prolonged period of anoxia leading to anoxic brain injury. Her mental status has not improved since then since this incidents she has been comatose. Acute kidney injury now ESRD and HD dependent * likely secondary to ATN, nephrology input appreciated, continue hemodialysis Toxic metabolic encephalopathy * Due to kidney failure, treating underlying cause Type 2 diabetes * Continue sliding scale Hypertension * BP acceptable, continue current management Anoxic Brain Injury/ Metabolic encephalopathy * She had an MRI of her brain on 12/12 did not show any acute changes * MRI brain shows ischemic injury in the subinsular regions, caudate nucleus, right posterior hippocampus * She most likely suffered this anoxic brain injury when she was in cardiac arrest. Sepsis secondary to UTI * Continue rocephin, till 12/27 * fever- repeat Blood cultures Gram negative septicemia/sepsis * blood culture growing Klebsiella PNA, which is sensitive to Ceftriaxone * continue abx till 12/27 * ID input appreciated, abx have been changed to broaden coverage, will consider further imaging if not improved in 2 days Acute respiratory failure, on MV greater than 96 hours * initially had emergent cricothyroidotomy on 12/15, and then sp tracheostomy on 12/18 * Continue ventilator Abdominal Distension * fup CT abdomen Cardiogenic shock * Has been weaned off pressors Hyperkalemia Resolved with dialysis Hypokalemia Replete judiciously, given that she has TAYA Hypomagnesemia Was replaced . Hyperlipidemia Continue statin Hypothyroidism TSH within normal limits Continue Synthroid at current dose Obesity Hypoventilation/SHELIA continue vent DVT prophylaxis continue heparin Discussed with family and consultants Prognosis is poor. patient will likely SNF placement vs Hospice Placement, Her has been very resistant to hearing the poor prognosis of his . will need to organize a family meeting to discuss goals of care The high probability of a clinically significant, sudden or life threatening deterioration of the [pulmonary, cardiovascular, renal] system(s) required my full and direct attention, intervention and personal management. The aggregate critical care time was [33] minutes. This time is in addition to time spent performing reported procedures but includes the following: [] Data Review and interpretation [] Patient assessment and monitoring of vital signs [] Documentation [] Medication orders and management History Interval history: still comatose, non responsive, non verbal, no purposeful movement Hospitalist Physical - Physical exam Narrative exam: General.: Appears well, no distress, nontoxic HEENT: Moist mucous membranes, extraocular muscles intact, no lymphadenopathy Neck: supple Cardiac: S1-S2 heard Lungs: clear to auscultation bilaterally Abdomen: soft , nontender, nondistended, bowel sounds positive Extremities: no edema clubbing or cyanosis Skin: no rash or lesions Neurologic: comatose, pupils responsive to light, no purposeful movement, trached, not on sedation - Constitutional Vitals: Temp Pulse Resp BP Pulse Ox 102.6 F H 94 H 20 144/72 96 12/22/16 12:00 12/22/16 12:00 12/22/16 12:00 12/22/16 12:00 12/22/16 12:00 General appearance: Present: obese Results - Labs CBC & Chem 7: 12/19/16 10:40 12/22/16 06:30 Labs: Laboratory Last Values WBC 6.9 K/mm3 (4.5-11.0) 12/19/16 10:40 RBC 3.06 M/mm3 (3.65-5.03) L 12/19/16 10:40 Hgb 9.2 gm/dl (10.1-14.3) L 12/19/16 10:40 Hct 28.0 % (30.3-42.9) L 12/19/16 10:40 MCV 92 fl (79-97) 12/19/16 10:40 MCH 30 pg (28-32) 12/19/16 10:40 MCHC 33 % (30-34) 12/19/16 10:40 RDW 14.8 % (13.2-15.2) 12/19/16 10:40 Plt Count 126 K/mm3 (140-440) L 12/19/16 10:40 Lymph % (Auto) 16.1 % (13.4-35.0) 12/17/16 13:58 George % (Auto) 7.9 % (0.0-7.3) H 12/17/16 13:58 Eos % (Auto) 0.8 % (0.0-4.3) 12/17/16 13:58 Baso % (Auto) 0.2 % (0.0-1.8) 12/17/16 13:58 Lymph # 0.8 K/mm3 (1.2-5.4) L 12/17/16 13:58 George # 0.4 K/mm3 (0.0-0.8) 12/17/16 13:58 Eos # 0.0 K/mm3 (0.0-0.4) 12/17/16 13:58 Baso # 0.0 K/mm3 (0.0-0.1) 12/17/16 13:58 Seg Neutrophils % 75.0 % (40.0-70.0) H 12/17/16 13:58 Seg Neutrophils # 3.9 K/mm3 (1.8-7.7) 12/17/16 13:58 PT 17.6 Sec. (12.2-14.9) H 12/16/16 06:30 INR 1.45 (0.87-1.13) H 12/16/16 06:30 APTT 27.6 Sec. (24.2-36.6) 12/11/16 23:50 Thrombin Time 16.6 Sec. (15.1-19.6) 12/11/16 23:50 POC ABG pH 7.431 (7.35-7.45) 12/21/16 09:22 POC ABG pCO2 35.7 (35-45) 12/21/16 09:22 POC ABG pO2 96 (80-105) 12/21/16 09:22 POC ABG HCO3 23.8 12/21/16 09:22 POC ABG Total CO2 25 12/21/16 09:22 POC ABG O2 Sat 98 12/21/16 09:22 POC ABG Base Excess -1 12/21/16 09:22 FiO2 30 % 12/21/16 09:22 Sodium 148 mmol/L (137-145) H 12/22/16 06:30 Potassium 3.3 mmol/L (3.6-5.0) L 12/22/16 06:30 Chloride 106.0 mmol/L (98-107) 12/22/16 06:30 Carbon Dioxide 23 mmol/L (22-30) 12/22/16 06:30 Anion Gap 22 mmol/L 12/22/16 06:30 BUN 87 mg/dL (7-17) H 12/22/16 06:30 Creatinine 4.4 mg/dL (0.7-1.2) H 12/22/16 06:30 Estimated GFR 10 ml/min 12/22/16 06:30 BUN/Creatinine Ratio 19.77 % 12/22/16 06:30 Glucose 186 mg/dL (65-100) H 12/22/16 06:30 POC Glucose 205 (70-105) H 12/22/16 12:23 Lactic Acid 1.80 mmol/L (0.7-2.0) 12/15/16 Unknown Calcium 9.1 mg/dL (8.4-10.2) 12/22/16 06:30 Phosphorus 5.10 mg/dL (2.5-4.5) H 12/19/16 10:40 Magnesium 1.80 mg/dL (1.7-2.3) 12/19/16 10:40 Total Bilirubin 0.30 mg/dL (0.1-1.2) 12/17/16 07:24 Direct Bilirubin < 0.2 mg/dL (0-0.2) 12/16/16 15:30 Indirect Bilirubin 0.0 mg/dL 12/16/16 15:30 AST 40 units/L (5-40) 12/17/16 07:24 ALT 27 units/L (7-56) 12/17/16 07:24 Alkaline Phosphatase 155 units/L (35-129) H 12/17/16 07:24 Total Creatine Kinase 73 units/L (30-135) 12/15/16 04:35 Troponin T < 0.010 ng/mL (0.00-0.029) 12/11/16 23:50 Serum Total Protein 6.1 g/dL (6.1-8.1) 12/14/16 09:00 Total Protein 6.3 g/dL (6.3-8.2) 12/17/16 07:24 Albumin 2.2 g/dL (3.9-5) L 12/17/16 07:24 Albumin/Globulin Ratio 0.5 % 12/17/16 07:24 Kxxsl-8-Mieiossgd 0.7 g/dL (0.2-0.3) H 12/14/16 09:00 Ojvdn-1-Xslvdweag 1.0 g/dL (0.5-0.9) H 12/14/16 09:00 Beta Globulins 0.7 g/dL (0.2-0.5) H 12/14/16 09:00 Gamma Globulins 0.7 g/dL (0.8-1.7) L 12/14/16 09:00 Abnorm Protein Band 1 see below 12/14/16 09:00 PEP Interpretation see below H 12/14/16 09:00 Triglycerides 166 mg/dL (2-149) H 12/13/16 03:39 Cholesterol 66 mg/dL (50-199) 12/13/16 03:39 LDL Cholesterol Direct 24 mg/dL (50-130) L 12/13/16 03:39 HDL Cholesterol 9 mg/dL (40-59) L 12/13/16 03:39 Cholesterol/HDL Ratio 7.33 % 12/13/16 03:39 TSH 2.640 mlU/mL (0.270-4.200) 12/12/16 15:23 Urine Color Yellow (Yellow) 12/12/16 21:30 Urine Turbidity Turbid (Clear) 12/12/16 21:30 Urine pH 5.0 (5.0-7.0) 12/12/16 21:30 Ur Specific [place] 1.015 (1.003-1.030) 12/12/16 21:30 Urine Protein 100 mg/dl mg/dL (Negative) 12/12/16 21:30 Urine Glucose (UA) Neg mg/dL (Negative) 12/12/16 21:30 Urine Ketones Neg mg/dL (Negative) 12/12/16 21:30 Urine Blood Lg (Negative) 12/12/16 21:30 Urine Nitrite Neg (Negative) 12/12/16 21:30 Urine Bilirubin Neg (Negative) 12/12/16 21:30 Urine Urobilinogen < 2.0 mg/dL (<2.0) 12/12/16 21:30 Ur Leukocyte Esterase Lg (Negative) 12/12/16 21:30 Urine WBC (Auto) > 182.0 /HPF (0.0-6.0) H 12/12/16 21:30 Urine RBC (Auto) 62.0 /HPF (0.0-6.0) 12/12/16 21:30 U Epithel Cells (Auto) 7.0 /HPF (0-13.0) 12/12/16 21:30 Urine Bacteria (Auto) 4+ /HPF (Negative) 12/12/16 21:30 Urine WBC Clumps 3+ /HPF 12/12/16 21:30 Calcium Oxalate Crystal 3+ 12/12/16 21:30 Urine Opiates Screen Presumptive negative 12/12/16 21:30 Urine Methadone Screen Presumptive negative 12/12/16 21:30 Ur Barbiturates Screen Presumptive negative 12/12/16 21:30 Ur Phencyclidine Scrn Presumptive negative 12/12/16 21:30 Ur Amphetamines Screen Presumptive negative 12/12/16 21:30 U Benzodiazepines Scrn Presumptive negative 12/12/16 21:30 Urine Cocaine Screen Presumptive negative 12/12/16 21:30 U Marijuana (THC) Screen Presumptive negative 12/12/16 21:30 Drugs of Abuse Note Disclamer 12/12/16 21:30 RYLAN Screen Positive (Negative) H 12/14/16 09:00 RYLAN Titer 1:320 (Negative) H 12/14/16 09:00 RYLAN Pattern Homogeneous 12/14/16 09:00 Proteinase 3 (PR3) Ab <1.0 AI (<1.0) 12/14/16 09:00 Myeloperoxidase Ab <1.0 AI (<1.0) 12/14/16 09:00 Glomerular Base Mem IgG <1.0 AI (<1.0) 12/14/16 09:00 Complement C3 206 mg/dL (90-180) H 12/14/16 09:00 Complement C4 56 mg/dL (16-47) H 12/14/16 09:00 Hepatitis A IgM Ab Non-reactive (NonReactive) 12/18/16 18:30 Hep Bs Antigen Non-reactive (Negative) 12/18/16 18:30 Hep B Core IgM Ab Non-reactive (NonReactive) 12/18/16 18:30 Hepatitis C Antibody Non-reactive (NonReactive) 12/18/16 18:30 Renal Biopsy Scanned into [facility] rec 12/15/16 13:43
[2016-12-22] MEDS ORDERED: VANCOMYCIN PHARMACY TO DOSE IV SCH (14:00)
--- NOTE | 2016-12-22 14:17 | Progress Note ---
Subjective Date of service: 12/22/16 Interval history: Neurology progress note: 12/22/2016 Mrs. Be has been previously seen and followed by Dr. Cox for unresponsiveness following an episode of pulseless electrical activity on 2016. She had MRI and MRA brain 12/21/2016 and showed some abnormality and requested neurology to see her again. Discussed with nursing staff and they reported that they have not seen any response to verbal commands or physical stimulation. Patient has a trach in place and remains on ventilator support. No clinical seizures noted by the staff. MRI brain done on 12/21/2016 showed tiny foci of restricted diffusion in bilateral caudate nuclei and insular cortex and right hippocampus and normal MRA of the brain as per the reports. Exam: Vital signs stable per monitor, mild edema of the feet and dorsalis pedis palpable. Patient unresponsive to verbal commands, no facial grimacing to deep pain, eyes in central position and no definite-type movements on doll's maneuver , pupils about 3 mm and both equally reactive to light, flaccid tone in all extremities and no spontaneous movements in any extremities, no posturing noted during this exam. Reflexes generally diminished in all extremities and both plantar reflexes absent. Impression: Encephalopathy following pulseless electrical activity 12/18/2016, patient remains essentially unresponsive to verbal and painful stimuli and on ventilator support. MRI brain findings not unusual after such event especially hypoxemic encephalopathy. Based on today's neurologic exam there is no evidence of cognition or improvement in consciousness level yet. Recommendation: Continue current level of care, otherwise no new suggestions from neurologic standpoint Objective - Vital Sign Vital Signs - 12hr 12/22/16 12/22/16 12/22/16 02:30 03:00 03:11 Temperature Pulse Rate 81 87 90 Pulse Rate [ From Monitor] Pulse Rate [ Left Dorsalis Pedis] Pulse Rate [ Left Radial] Pulse Rate [ Right Dorsalis Pedis] Pulse Rate [ Right Radial] Respiratory 16 22 Rate Blood Pressure 140/75 148/68 148/68 O2 Sat by Pulse 98 96 96 Oximetry 12/22/16 12/22/16 12/22/16 03:30 03:44 04:00 Temperature 100.9 F H Pulse Rate 90 82 Pulse Rate [ 88 From Monitor] Pulse Rate [ 88 Left Dorsalis Pedis] Pulse Rate [ 88 Left Radial] Pulse Rate [ 88 Right Dorsalis Pedis] Pulse Rate [ 88 Right Radial] Respiratory 18 13 Rate Blood Pressure 148/68 145/79 O2 Sat by Pulse 97 96 Oximetry 12/22/16 12/22/16 12/22/16 04:30 05:00 05:30 Temperature Pulse Rate 77 88 81 Pulse Rate [ From Monitor] Pulse Rate [ Left Dorsalis Pedis] Pulse Rate [ Left Radial] Pulse Rate [ Right Dorsalis Pedis] Pulse Rate [ Right Radial] Respiratory 13 15 14 Rate Blood Pressure 145/79 140/75 140/75 O2 Sat by Pulse 98 97 98 Oximetry 12/22/16 12/22/16 12/22/16 05:49 06:00 06:30 Temperature Pulse Rate 86 85 87 Pulse Rate [ From Monitor] Pulse Rate [ Left Dorsalis Pedis] Pulse Rate [ Left Radial] Pulse Rate [ Right Dorsalis Pedis] Pulse Rate [ Right Radial] Respiratory 15 14 19 Rate Blood Pressure 140/78 143/69 143/69 O2 Sat by Pulse 98 96 98 Oximetry 12/22/16 12/22/16 12/22/16 07:00 07:30 08:00 Temperature 99.6 F Pulse Rate 88 89 93 H Pulse Rate [ From Monitor] Pulse Rate [ Left Dorsalis Pedis] Pulse Rate [ Left Radial] Pulse Rate [ Right Dorsalis Pedis] Pulse Rate [ Right Radial] Respiratory 16 17 14 Rate Blood Pressure 142/71 142/71 140/74 O2 Sat by Pulse 97 98 96 Oximetry 12/22/16 12/22/16 12/22/16 08:09 08:30 09:00 Temperature Pulse Rate 94 H 95 H 92 H Pulse Rate [ From Monitor] Pulse Rate [ Left Dorsalis Pedis] Pulse Rate [ Left Radial] Pulse Rate [ Right Dorsalis Pedis] Pulse Rate [ Right Radial] Respiratory 18 19 18 Rate Blood Pressure 140/74 140/74 135/73 O2 Sat by Pulse 98 98 96 Oximetry 12/22/16 12/22/16 12/22/16 09:30 10:00 10:19 Temperature Pulse Rate 93 H 92 H 94 H Pulse Rate [ From Monitor] Pulse Rate [ Left Dorsalis Pedis] Pulse Rate [ Left Radial] Pulse Rate [ Right Dorsalis Pedis] Pulse Rate [ Right Radial] Respiratory 17 17 Rate Blood Pressure 135/73 139/69 139/69 O2 Sat by Pulse 98 96 Oximetry 12/22/16 12/22/16 12/22/16 10:30 11:00 11:27 Temperature Pulse Rate 98 H 92 H 93 H Pulse Rate [ From Monitor] Pulse Rate [ Left Dorsalis Pedis] Pulse Rate [ Left Radial] Pulse Rate [ Right Dorsalis Pedis] Pulse Rate [ Right Radial] Respiratory 17 19 20 Rate Blood Pressure 139/69 137/70 137/70 O2 Sat by Pulse 98 97 98 Oximetry 12/22/16 12/22/16 11:30 12:00 Temperature 102.6 F H Pulse Rate 94 H 94 H Pulse Rate [ From Monitor] Pulse Rate [ Left Dorsalis Pedis] Pulse Rate [ Left Radial] Pulse Rate [ Right Dorsalis Pedis] Pulse Rate [ Right Radial] Respiratory 18 20 Rate Blood Pressure 137/70 144/72 O2 Sat by Pulse 98 96 Oximetry - Laboratory Findings CBC and BMP: 12/19/16 10:40 12/22/16 06:30 Abnormal Lab Findings: Abnormal Labs 12/12/16 12/12/16 12/12/16 08:06 12:27 15:23 WBC RBC Hgb Hct Plt Count Lymph % (Auto) [place] % (Auto) Lymph # Seg Neutrophils % Seg Neutrophils # PT INR POC ABG pH POC ABG pCO2 POC ABG pO2 Sodium Potassium Chloride Carbon Dioxide BUN Creatinine Glucose POC Glucose 299 H 281 H Lactic Acid 4.20 H* Calcium Phosphorus Magnesium AST Alkaline Phosphatase Total Protein Albumin Owazy-7-Cmovwmlna Frhxa-0-Plthzpzed Beta Globulins Gamma Globulins PEP Interpretation Triglycerides LDL Cholesterol Direct HDL Cholesterol Urine WBC (Auto) RYLAN Screen RYLAN Titer Complement C3 Complement C4 12/12/16 12/12/16 12/12/16 16:53 19:51 20:43 WBC RBC Hgb Hct Plt Count Lymph % (Auto) [place] % (Auto) Lymph # Seg Neutrophils % Seg Neutrophils # PT INR POC ABG pH POC ABG pCO2 POC ABG pO2 Sodium Potassium Chloride Carbon Dioxide BUN Creatinine Glucose POC Glucose 272 H 238 H Lactic Acid 2.90 H* Calcium Phosphorus Magnesium AST Alkaline Phosphatase Total Protein Albumin Vwgko-7-Qxgjeyesd Vjqhe-6-Ktdsktjao Beta Globulins Gamma Globulins PEP Interpretation Triglycerides LDL Cholesterol Direct HDL Cholesterol Urine WBC (Auto) RYLAN Screen RYLAN Titer Complement C3 Complement C4 12/12/16 12/13/16 12/13/16 21:30 03:39 03:39 WBC RBC Hgb Hct Plt Count 118 L Lymph % (Auto) 7.4 L [place] % (Auto) 7.6 H Lymph # 0.7 L Seg Neutrophils % 84.7 H Seg Neutrophils # 8.4 H PT INR POC ABG pH POC ABG pCO2 POC ABG pO2 Sodium 133 L Potassium Chloride 96.5 L Carbon Dioxide 18 L BUN 49 H Creatinine 3.1 H D Glucose 173 H POC Glucose Lactic Acid Calcium 8.3 L D Phosphorus Magnesium 1.20 L AST Alkaline Phosphatase Total Protein Albumin 2.6 L Tbygi-7-Ikwzuhhis Qbdsu-1-Sxecqtgqt Beta Globulins Gamma Globulins PEP Interpretation Triglycerides 166 H LDL Cholesterol Direct 24 L HDL Cholesterol 9 L Urine WBC (Auto) > 182.0 H RYLAN Screen RYLAN Titer Complement C3 Complement C4 12/13/16 12/13/16 12/13/16 07:41 11:53 17:23 WBC RBC Hgb Hct Plt Count Lymph % (Auto) [place] % (Auto) Lymph # Seg Neutrophils % Seg Neutrophils # PT INR POC ABG pH POC ABG pCO2 POC ABG pO2 Sodium Potassium Chloride Carbon Dioxide BUN Creatinine Glucose POC Glucose 222 H 221 H 247 H Lactic Acid Calcium Phosphorus Magnesium AST Alkaline Phosphatase Total Protein Albumin Zldrb-9-Drlqeajme Jbjns-7-Msbjfluyn Beta Globulins Gamma Globulins PEP Interpretation Triglycerides LDL Cholesterol Direct HDL Cholesterol Urine WBC (Auto) RYLAN Screen RYLAN Titer Complement C3 Complement C4 12/13/16 12/14/16 12/14/16 21:29 03:35 03:35 WBC RBC 3.42 L Hgb Hct Plt Count 86 L Lymph % (Auto) 6.1 L [place] % (Auto) Lymph # 0.3 L Seg Neutrophils % 87.3 H Seg Neutrophils # PT INR POC ABG pH POC ABG pCO2 POC ABG pO2 Sodium 133 L Potassium 5.1 H Chloride 96.2 L Carbon Dioxide 17 L BUN 63 H Creatinine 4.2 H Glucose 136 H POC Glucose 185 H Lactic Acid Calcium 8.1 L Phosphorus Magnesium 1.30 L AST Alkaline Phosphatase Total Protein Albumin Zmbts-1-Iiwceugac Sfjlb-4-Xtyguwvsl Beta Globulins Gamma Globulins PEP Interpretation Triglycerides LDL Cholesterol Direct HDL Cholesterol Urine WBC (Auto) RYLAN Screen RYLAN Titer Complement C3 Complement C4 12/14/16 12/14/16 12/14/16 08:32 09:00 09:00 WBC RBC Hgb Hct Plt Count Lymph % (Auto) [place] % (Auto) Lymph # Seg Neutrophils % Seg Neutrophils # PT INR POC ABG pH POC ABG pCO2 POC ABG pO2 Sodium Potassium Chloride Carbon Dioxide BUN Creatinine Glucose POC Glucose 152 H Lactic Acid Calcium Phosphorus Magnesium AST Alkaline Phosphatase Total Protein Albumin Yehwy-0-Ugavpasbl Oangg-5-Yetrtbfcn Beta Globulins Gamma Globulins PEP Interpretation Triglycerides LDL Cholesterol Direct HDL Cholesterol Urine WBC (Auto) RYLAN Screen Positive H RYLAN Titer 1:320 H Complement C3 206 H Complement C4 12/14/16 12/14/16 12/14/16 09:00 09:00 11:50 WBC RBC Hgb Hct Plt Count Lymph % (Auto) [place] % (Auto) Lymph # Seg Neutrophils % Seg Neutrophils # PT INR POC ABG pH POC ABG pCO2 POC ABG pO2 Sodium Potassium Chloride Carbon Dioxide BUN Creatinine Glucose POC Glucose 168 H Lactic Acid Calcium Phosphorus Magnesium AST Alkaline Phosphatase Total Protein Albumin 2.6 L Ffcew-0-Gjiqfsppo 0.7 H Uugsu-4-Irkbqwgxt 1.0 H Beta Globulins 0.7 H Gamma Globulins 0.7 L PEP Interpretation see below H Triglycerides LDL Cholesterol Direct HDL Cholesterol Urine WBC (Auto) RYLAN Screen RYLAN Titer Complement C3 Complement C4 56 H 12/14/16 12/15/16 12/15/16 17:35 04:35 04:35 WBC 4.1 L RBC 3.39 L Hgb Hct Plt Count 84 L Lymph % (Auto) 8.8 L [place] % (Auto) Lymph # 0.4 L Seg Neutrophils % 83.6 H Seg Neutrophils # PT INR POC ABG pH POC ABG pCO2 POC ABG pO2 Sodium Potassium 6.0 H Chloride Carbon Dioxide 15 L BUN 79 H Creatinine 5.0 H Glucose POC Glucose 154 H Lactic Acid Calcium 8.0 L Phosphorus 6.70 H D Magnesium AST Alkaline Phosphatase Total Protein Albumin Kqydb-6-Axygkwzlw Pznio-0-Kvagskcbo Beta Globulins Gamma Globulins PEP Interpretation Triglycerides LDL Cholesterol Direct HDL Cholesterol Urine WBC (Auto) RYLAN Screen RYLAN Titer Complement C3 Complement C4 12/15/16 12/15/16 12/15/16 07:45 08:13 15:20 WBC RBC Hgb Hct Plt Count Lymph % (Auto) [place] % (Auto) Lymph # Seg Neutrophils % Seg Neutrophils # PT INR POC ABG pH 7.156 L 7.228 L POC ABG pCO2 48.7 H POC ABG pO2 232 H Sodium Potassium Chloride Carbon Dioxide BUN Creatinine Glucose POC Glucose 113 H Lactic Acid Calcium Phosphorus Magnesium AST Alkaline Phosphatase Total Protein Albumin Dmalf-1-Hwgagmnyk Xnmqi-3-Aikjbxzvd Beta Globulins Gamma Globulins PEP Interpretation Triglycerides LDL Cholesterol Direct HDL Cholesterol Urine WBC (Auto) RYLAN Screen RYLAN Titer Complement C3 Complement C4 12/15/16 12/15/16 12/15/16 23:53 Unknown Unknown WBC RBC 3.19 L Hgb 9.6 L Hct 29.8 L Plt Count 108 L Lymph % (Auto) 6.5 L [place] % (Auto) Lymph # 0.4 L Seg Neutrophils % 87.1 H Seg Neutrophils # PT 16.2 H INR 1.31 H POC ABG pH POC ABG pCO2 POC ABG pO2 Sodium Potassium Chloride Carbon Dioxide BUN Creatinine Glucose POC Glucose 232 H Lactic Acid Calcium Phosphorus Magnesium AST Alkaline Phosphatase Total Protein Albumin Tqauu-4-Iuqlwsiby Gorzi-9-Lregndvok Beta Globulins Gamma Globulins PEP Interpretation Triglycerides LDL Cholesterol Direct HDL Cholesterol Urine WBC (Auto) RYLAN Screen RYLAN Titer Complement C3 Complement C4 12/15/16 12/16/16 12/16/16 Unknown 04:58 05:39 WBC RBC Hgb Hct Plt Count Lymph % (Auto) [place] % (Auto) Lymph # Seg Neutrophils % Seg Neutrophils # PT INR POC ABG pH POC ABG pCO2 POC ABG pO2 143 H Sodium Potassium Chloride Carbon Dioxide 16 L BUN 85 H Creatinine 4.9 H Glucose 205 H POC Glucose 201 H Lactic Acid Calcium 8.2 L Phosphorus Magnesium AST 77 H Alkaline Phosphatase 136 H Total Protein Albumin 2.3 L Aenom-4-Vhawaxqjk Vabwp-1-Vaaxqyhxa Beta Globulins Gamma Globulins PEP Interpretation Triglycerides LDL Cholesterol Direct HDL Cholesterol Urine WBC (Auto) RYLAN Screen RYLAN Titer Complement C3 Complement C4 12/16/16 12/16/16 12/16/16 06:30 06:30 06:30 WBC 4.0 L RBC 3.23 L Hgb 9.6 L Hct 29.8 L Plt Count 110 L Lymph % (Auto) 11.3 L [place] % (Auto) Lymph # 0.5 L Seg Neutrophils % 81.2 H Seg Neutrophils # PT 17.6 H INR 1.45 H POC ABG pH POC ABG pCO2 POC ABG pO2 Sodium Potassium Chloride Carbon Dioxide 20 L BUN 57 H Creatinine 3.6 H Glucose 176 H POC Glucose Lactic Acid Calcium 8.1 L Phosphorus 4.90 H D Magnesium 1.60 L AST 46 H Alkaline Phosphatase 137 H Total Protein Albumin 2.3 L Mhwvg-1-Wrxeehwze Bkixh-6-Czahixetj Beta Globulins Gamma Globulins PEP Interpretation Triglycerides LDL Cholesterol Direct HDL Cholesterol Urine WBC (Auto) RYLAN Screen RYLAN Titer Complement C3 Complement C4 12/16/16 12/16/16 12/16/16 11:16 15:30 17:23 WBC RBC Hgb Hct Plt Count Lymph % (Auto) [place] % (Auto) Lymph # Seg Neutrophils % Seg Neutrophils # PT INR POC ABG pH POC ABG pCO2 POC ABG pO2 Sodium Potassium Chloride Carbon Dioxide BUN Creatinine Glucose POC Glucose 194 H 209 H Lactic Acid Calcium Phosphorus Magnesium AST 43 H Alkaline Phosphatase 156 H Total Protein 5.6 L Albumin 2.4 L Roxyu-0-Jmmoiqjfc Ymegs-2-Kjjudkxfq Beta Globulins Gamma Globulins PEP Interpretation Triglycerides LDL Cholesterol Direct HDL Cholesterol Urine WBC (Auto) RYLAN Screen RYLAN Titer Complement C3 Complement C4 12/16/16 12/17/16 12/17/16 23:35 03:38 05:18 WBC RBC Hgb Hct Plt Count Lymph % (Auto) [place] % (Auto) Lymph # Seg Neutrophils % Seg Neutrophils # PT INR POC ABG pH 7.485 H POC ABG pCO2 POC ABG pO2 Sodium Potassium Chloride Carbon Dioxide BUN Creatinine Glucose POC Glucose 179 H 201 H Lactic Acid Calcium Phosphorus Magnesium AST Alkaline Phosphatase Total Protein Albumin Kfznk-8-Fxlmuqlrq Mqheb-6-Tlbvmidbk Beta Globulins Gamma Globulins PEP Interpretation Triglycerides LDL Cholesterol Direct HDL Cholesterol Urine WBC (Auto) RYLAN Screen RYLAN Titer Complement C3 Complement C4 12/17/16 12/17/16 12/17/16 07:24 12:00 13:58 WBC RBC 3.02 L Hgb 9.2 L Hct 27.2 L Plt Count 100 L Lymph % (Auto) [place] % (Auto) 7.9 H Lymph # 0.8 L Seg Neutrophils % 75.0 H Seg Neutrophils # PT INR POC ABG pH POC ABG pCO2 POC ABG pO2 Sodium Potassium 3.3 L Chloride Carbon Dioxide BUN 50 H Creatinine 3.1 H Glucose 181 H POC Glucose 176 H Lactic Acid Calcium Phosphorus Magnesium AST Alkaline Phosphatase 155 H Total Protein Albumin 2.2 L Mrpcy-9-Tpxhhdlns Dipvq-2-Wkkjkdgut Beta Globulins Gamma Globulins PEP Interpretation Triglycerides LDL Cholesterol Direct HDL Cholesterol Urine WBC (Auto) RYLAN Screen RYLAN Titer Complement C3 Complement C4 12/17/16 12/18/16 12/18/16 17:11 00:05 05:40 WBC RBC Hgb Hct Plt Count Lymph % (Auto) [place] % (Auto) Lymph # Seg Neutrophils % Seg Neutrophils # PT INR POC ABG pH POC ABG pCO2 POC ABG pO2 Sodium Potassium Chloride Carbon Dioxide BUN Creatinine Glucose POC Glucose 152 H 155 H 170 H Lactic Acid Calcium Phosphorus Magnesium AST Alkaline Phosphatase Total Protein Albumin Boxnm-8-Fmkqalylp Nehyl-1-Lzczlpksf Beta Globulins Gamma Globulins PEP Interpretation Triglycerides LDL Cholesterol Direct HDL Cholesterol Urine WBC (Auto) RYLAN Screen RYLAN Titer Complement C3 Complement C4 12/18/16 12/18/16 12/18/16 07:52 12:21 15:10 WBC RBC Hgb Hct Plt Count Lymph % (Auto) [place] % (Auto) Lymph # Seg Neutrophils % Seg Neutrophils # PT INR POC ABG pH POC ABG pCO2 POC ABG pO2 Sodium Potassium 2.9 L* Chloride Carbon Dioxide BUN 69 H Creatinine 4.5 H Glucose 150 H POC Glucose 165 H 130 H Lactic Acid Calcium Phosphorus Magnesium AST Alkaline Phosphatase Total Protein Albumin Uxgok-9-Vikhhuyot Dqdcc-5-Rxsmkjeov Beta Globulins Gamma Globulins PEP Interpretation Triglycerides LDL Cholesterol Direct HDL Cholesterol Urine WBC (Auto) RYLAN Screen RYLAN Titer Complement C3 Complement C4 12/18/16 12/18/16 12/19/16 18:43 23:33 03:04 WBC RBC Hgb Hct Plt Count Lymph % (Auto) [place] % (Auto) Lymph # Seg Neutrophils % Seg Neutrophils # PT INR POC ABG pH 7.455 H POC ABG pCO2 POC ABG pO2 Sodium Potassium Chloride Carbon Dioxide BUN Creatinine Glucose POC Glucose 176 H 174 H Lactic Acid Calcium Phosphorus Magnesium AST Alkaline Phosphatase Total Protein Albumin Ueyso-2-Gnfegshbs Ggdfm-2-Alzefdkgp Beta Globulins Gamma Globulins PEP Interpretation Triglycerides LDL Cholesterol Direct HDL Cholesterol Urine WBC (Auto) RYLAN Screen RYLAN Titer Complement C3 Complement C4 12/19/16 12/19/16 12/19/16 05:47 10:40 10:40 WBC RBC 3.06 L Hgb 9.2 L Hct 28.0 L Plt Count 126 L Lymph % (Auto) [place] % (Auto) Lymph # Seg Neutrophils % Seg Neutrophils # PT INR POC ABG pH POC ABG pCO2 POC ABG pO2 Sodium Potassium 3.0 L Chloride Carbon Dioxide BUN 55 H Creatinine 3.4 H Glucose 161 H POC Glucose 160 H Lactic Acid Calcium Phosphorus 5.10 H Magnesium AST Alkaline Phosphatase Total Protein Albumin Luidm-3-Cbzzheonr Kxpko-3-Fcmaeqgux Beta Globulins Gamma Globulins PEP Interpretation Triglycerides LDL Cholesterol Direct HDL Cholesterol Urine WBC (Auto) RYLAN Screen RYLAN Titer Complement C3 Complement C4 12/19/16 12/19/16 12/20/16 13:00 18:04 00:04 WBC RBC Hgb Hct Plt Count Lymph % (Auto) [place] % (Auto) Lymph # Seg Neutrophils % Seg Neutrophils # PT INR POC ABG pH POC ABG pCO2 POC ABG pO2 Sodium Potassium Chloride Carbon Dioxide BUN Creatinine Glucose POC Glucose 173 H 129 H 152 H Lactic Acid Calcium Phosphorus Magnesium AST Alkaline Phosphatase Total Protein Albumin Rqmsa-0-Vsruaptwv Dyjee-2-Rxwcwmlnw Beta Globulins Gamma Globulins PEP Interpretation Triglycerides LDL Cholesterol Direct HDL Cholesterol Urine WBC (Auto) RYLAN Screen RYLAN Titer Complement C3 Complement C4 12/20/16 12/20/16 12/20/16 05:34 05:45 10:47 WBC RBC Hgb Hct Plt Count Lymph % (Auto) [place] % (Auto) Lymph # Seg Neutrophils % Seg Neutrophils # PT INR POC ABG pH POC ABG pCO2 POC ABG pO2 110 H Sodium Potassium 3.4 L Chloride Carbon Dioxide BUN 72 H Creatinine 4.0 H Glucose 130 H POC Glucose 175 H Lactic Acid Calcium Phosphorus Magnesium AST Alkaline Phosphatase Total Protein Albumin Znoic-6-Tsenwbphd Ykuvu-2-Jbctxjscy Beta Globulins Gamma Globulins PEP Interpretation Triglycerides LDL Cholesterol Direct HDL Cholesterol Urine WBC (Auto) RYLAN Screen RYLAN Titer Complement C3 Complement C4 12/20/16 12/20/16 12/20/16 11:56 18:14 23:43 WBC RBC Hgb Hct Plt Count Lymph % (Auto) [place] % (Auto) Lymph # Seg Neutrophils % Seg Neutrophils # PT INR POC ABG pH POC ABG pCO2 POC ABG pO2 Sodium Potassium Chloride Carbon Dioxide BUN Creatinine Glucose POC Glucose 130 H 142 H 193 H Lactic Acid Calcium Phosphorus Magnesium AST Alkaline Phosphatase Total Protein Albumin Tymmu-1-Ltoblsktc Sltgt-5-Ovuehzzuu Beta Globulins Gamma Globulins PEP Interpretation Triglycerides LDL Cholesterol Direct HDL Cholesterol Urine WBC (Auto) RYLAN Screen RYLAN Titer Complement C3 Complement C4 12/21/16 12/21/16 12/21/16 05:10 08:32 12:29 WBC RBC Hgb Hct Plt Count Lymph % (Auto) [place] % (Auto) Lymph # Seg Neutrophils % Seg Neutrophils # PT INR POC ABG pH POC ABG pCO2 POC ABG pO2 Sodium 146 H Potassium Chloride Carbon Dioxide BUN 85 H Creatinine 4.3 H Glucose 184 H POC Glucose 204 H 214 H Lactic Acid Calcium Phosphorus Magnesium AST Alkaline Phosphatase Total Protein Albumin Uwxrp-6-Eibgkgjzz Wddje-2-Jbseuyyht Beta Globulins Gamma Globulins PEP Interpretation Triglycerides LDL Cholesterol Direct HDL Cholesterol Urine WBC (Auto) RYLAN Screen RYLAN Titer Complement C3 Complement C4 12/21/16 12/21/16 12/22/16 18:06 23:31 05:38 WBC RBC Hgb Hct Plt Count Lymph % (Auto) [place] % (Auto) Lymph # Seg Neutrophils % Seg Neutrophils # PT INR POC ABG pH POC ABG pCO2 POC ABG pO2 Sodium Potassium Chloride Carbon Dioxide BUN Creatinine Glucose POC Glucose 184 H 191 H 182 H Lactic Acid Calcium Phosphorus Magnesium AST Alkaline Phosphatase Total Protein Albumin Fwlye-2-Bxcwbmbpj Jhqke-2-Vblfuwpln Beta Globulins Gamma Globulins PEP Interpretation Triglycerides LDL Cholesterol Direct HDL Cholesterol Urine WBC (Auto) RYLAN Screen RYLAN Titer Complement C3 Complement C4 12/22/16 12/22/16 06:30 12:23 WBC RBC Hgb Hct Plt Count Lymph % (Auto) [place] % (Auto) Lymph # Seg Neutrophils % Seg Neutrophils # PT INR POC ABG pH POC ABG pCO2 POC ABG pO2 Sodium 148 H Potassium 3.3 L Chloride Carbon Dioxide BUN 87 H Creatinine 4.4 H Glucose 186 H POC Glucose 205 H Lactic Acid Calcium Phosphorus Magnesium AST Alkaline Phosphatase Total Protein Albumin Jcuue-3-Fwsiaqyfp Jlqhj-2-Pnxraiany Beta Globulins Gamma Globulins PEP Interpretation Triglycerides LDL Cholesterol Direct HDL Cholesterol Urine WBC (Auto) RYLAN Screen RYLAN Titer Complement C3 Complement C4
[2016-12-22] MEDS ORDERED: VANCOMYCIN 1,500 MG in NACL 0.9% 500 ML 500 ML IV ONE (15:00)
--- NOTE | 2016-12-22 16:21 | Progress Note ---
Assessment and Plan Imp: 1. UTI/bacteremia/sepsis 2. TAYA -> ATN 3. S/p CP arrest 4. Anoxic encephalopathy 5. S/p Trach 6. Morbid obesity 7. Acute respiratory failure, hypoxia Rec: 1. F/u repeat cultures; ABX as per ID 2. T-piece trials 3. Cont. TFs; will need PEG at some point 4. Hold all sedation 5. DVT PPx 6. Guarded prognosis; agree w/ LTAC No family present CCT 31 minutes Subjective Date of service: 12/22/16 Principal diagnosis: Coma Interval history: No events. Tolerating PSV 10/5. Opens eyes minimally, not following commands or answering questions. On TFs at 10cc/hour. Active Medications Acetaminophen (Tylenol) 650 mg PO Q4H PRN PRN Reason: Pain, Mild (1-3) Last Admin: 12/21/16 16:06 Dose: 650 mg Albumin Human (Alburx 25% (Albumin)) 12.5 gm IV DIPESH PRN PRN Reason: Hypotension Lipase/Protease/Amylase (Pancreiman Lopes 10,500 Unit) 1 each FEEDTUBE PRN PRN PRN Reason: For Clogged Feeding Tube Artificial Tears (Isopto Tears 0.5%) 2 drops OU Q4H PRN PRN Reason: Dry Eye(s) Last Admin: 12/16/16 05:25 Dose: 2 drops Aspirin (Aspirin) 325 mg PO QDAY [facility] Last Admin: 12/22/16 10:19 Dose: 325 mg Bisacodyl (Dulcolax) 10 mg [place] QDAY PRN PRN Reason: Constipation Carvedilol (Coreg) 3.125 mg PO BID [facility] Last Admin: 12/22/16 10:19 Dose: 3.125 mg Dextrose (D50w (25gm)) 50 ml IV PRN PRN PRN Reason: Hypoglycemia Last Admin: 12/15/16 10:25 Dose: 50 ml Famotidine (Pepcid) 20 mg PO DAILY [facility] Last Admin: 12/22/16 10:20 Dose: 20 mg Heparin Sodium (Porcine) (Heparin) 5,000 unit SUB-Q Q8HR [facility] Last Admin: 12/22/16 13:04 Dose: 5,000 unit Heparin Sodium (Porcine) (Heparin) 5,000 unit IV DIPESH PRN PRN Reason: dwell Last Admin: 12/16/16 16:04 Dose: 5,000 unit Hydralazine HCl (Apresoline) 5 mg IV Q6H PRN PRN Reason: Keep SBP between 160-185 mm Hg Sodium Chloride (Nacl 0.9%) 100 mls @ 999 mls/hr IV DIPESH PRN PRN Reason: Hypotension Norepinephrine (Levophed Drip 4 Mg/Ns 250 Ml) 4 mg in 250 mls @ 7.5 mls/hr IV TITR LENARD; 2 MCG/MIN PRN Reason: Protocol Last Titration: 12/16/16 17:00 Dose: Infused Sodium Chloride (Nacl 0.9%) 100 mls @ 999 mls/hr IV DIPESH PRN PRN Reason: Hypotension Cefepime HCl (Maxipime/Ns 1 Gm/100 Ml) 1 gm in 100 mls @ 200 mls/hr IV Q24HR [facility] PRN Reason: Protocol Vancomycin HCl 1,500 mg/ (Sodium Chloride) 515 mls @ 333.333 mls/hr IV ONCE ONE Stop: 12/22/16 16:32 Insulin Aspart (Novolog) 0 units SUB-Q Q6HR [facility] PRN Reason: Protocol Last Admin: 12/22/16 13:04 Dose: 4 units Insulin Detemir (Levemir) 5 units SUB-Q DAILY [facility] Last Admin: 12/22/16 10:20 Dose: 5 units Magnesium Hydroxide (Milk Of Magnesia) 30 ml PO Q4H PRN PRN Reason: Constipation Ondansetron HCl (Zofran) 4 mg IV Q8H PRN PRN Reason: N/V unrelieved by Reglan Simple Syrup (Simple Syrup) 15 ml FEEDTUBE PRN PRN PRN Reason: Hypoglycemia Simple Syrup (Simple Syrup) 30 ml FEEDTUBE PRN PRN PRN Reason: Hypoglycemia Simvastatin (Zocor) 20 mg PO QHS [facility] Last Admin: 12/21/16 21:41 Dose: 20 mg Sodium Bicarbonate (Sodium Bicarbonate) 325 mg FEEDTUBE PRN PRN PRN Reason: For Clogged Feeding Tube Sodium Chloride (Sodium Chloride Flush Syringe 10 Ml) 10 ml IV PRN PRN PRN Reason: LINE FLUSH Vancomycin HCl (Vancomycin Pharmacy To Dose) 1 each IV PKCONSULT [facility] Objective Vital Signs - 12hr 12/22/16 12/22/16 12/22/16 04:30 05:00 05:30 Temperature Pulse Rate 77 88 81 Respiratory 13 15 14 Rate Blood Pressure 145/79 140/75 140/75 O2 Sat by Pulse 98 97 98 Oximetry O2 Sat by Pulse Oximetry [ Anterior Bilateral Throughout] O2 Sat by Pulse Oximetry [ Bilateral Throughout] 12/22/16 12/22/16 12/22/16 05:49 06:00 06:30 Temperature Pulse Rate 86 85 87 Respiratory 15 14 19 Rate Blood Pressure 140/78 143/69 143/69 O2 Sat by Pulse 98 96 98 Oximetry O2 Sat by Pulse Oximetry [ Anterior Bilateral Throughout] O2 Sat by Pulse Oximetry [ Bilateral Throughout] 12/22/16 12/22/16 12/22/16 07:00 07:30 08:00 Temperature 99.6 F Pulse Rate 88 89 93 H Respiratory 16 17 14 Rate Blood Pressure 142/71 142/71 140/74 O2 Sat by Pulse 97 98 96 Oximetry O2 Sat by Pulse Oximetry [ Anterior Bilateral Throughout] O2 Sat by Pulse Oximetry [ Bilateral Throughout] 12/22/16 12/22/16 12/22/16 08:09 08:30 09:00 Temperature Pulse Rate 94 H 95 H 92 H Respiratory 18 19 18 Rate Blood Pressure 140/74 140/74 135/73 O2 Sat by Pulse 98 98 96 Oximetry O2 Sat by Pulse Oximetry [ Anterior Bilateral Throughout] O2 Sat by Pulse Oximetry [ Bilateral Throughout] 12/22/16 12/22/16 12/22/16 09:30 10:00 10:19 Temperature Pulse Rate 93 H 92 H 94 H Respiratory 17 17 Rate Blood Pressure 135/73 139/69 139/69 O2 Sat by Pulse 98 96 Oximetry O2 Sat by Pulse Oximetry [ Anterior Bilateral Throughout] O2 Sat by Pulse Oximetry [ Bilateral Throughout] 12/22/16 12/22/16 12/22/16 10:30 11:00 11:27 Temperature Pulse Rate 98 H 92 H 93 H Respiratory 17 19 20 Rate Blood Pressure 139/69 137/70 137/70 O2 Sat by Pulse 98 97 98 Oximetry O2 Sat by Pulse Oximetry [ Anterior Bilateral Throughout] O2 Sat by Pulse Oximetry [ Bilateral Throughout] 12/22/16 12/22/16 12/22/16 11:30 12:00 14:35 Temperature 102.6 F H 102.6 F H Pulse Rate 94 H 94 H 83 Respiratory 18 20 18 Rate Blood Pressure 137/70 144/72 135/66 O2 Sat by Pulse 98 96 Oximetry O2 Sat by Pulse 97 Oximetry [ Anterior Bilateral Throughout] O2 Sat by Pulse 97 Oximetry [ Bilateral Throughout] 12/22/16 12/22/16 12/22/16 14:38 14:50 15:05 Temperature Pulse Rate 81 83 82 Respiratory 20 Rate Blood Pressure 133/65 141/76 118/65 O2 Sat by Pulse 98 Oximetry O2 Sat by Pulse Oximetry [ Anterior Bilateral Throughout] O2 Sat by Pulse Oximetry [ Bilateral Throughout] 12/22/16 12/22/16 12/22/16 15:20 15:35 15:50 Temperature Pulse Rate 86 82 89 Respiratory Rate Blood Pressure 127/73 105/58 94/56 O2 Sat by Pulse Oximetry O2 Sat by Pulse Oximetry [ Anterior Bilateral Throughout] O2 Sat by Pulse Oximetry [ Bilateral Throughout] 12/22/16 16:05 Temperature Pulse Rate 97 H Respiratory Rate Blood Pressure 106/63 O2 Sat by Pulse Oximetry O2 Sat by Pulse Oximetry [ Anterior Bilateral Throughout] O2 Sat by Pulse Oximetry [ Bilateral Throughout] Constitutional: comatose Eyes: non-icteric ENT: oropharynx moist, other (trach midline) Neck: supple, other (large in circumference) Effort: normal Ascultation: Bilateral: clear Cardiovascular: regular rate and rhythm (no mrg) Gastrointestinal: normoactive bowel sounds, non-distended, other (obese) Integumentary: normal Extremities: no cyanosis, no edema, pink and warm Neurologic: other (flaccid extremities, not following commands) Psychiatric: other (not able to assess) CBC and BMP: 12/19/16 10:40 12/22/16 06:30 ABG, PT/INR, D-dimer: ABG POC ABG pH 7.431 (7.35-7.45) 12/21/16 09:22 POC ABG pCO2 35.7 (35-45) 12/21/16 09:22 POC ABG pO2 96 (80-105) 12/21/16 09:22 POC ABG HCO3 23.8 12/21/16 09:22 POC ABG Total CO2 25 12/21/16 09:22 POC ABG O2 Sat 98 12/21/16 09:22 PT/INR, D-dimer PT 17.6 Sec. (12.2-14.9) H 12/16/16 06:30 INR 1.45 (0.87-1.13) H 12/16/16 06:30 Abnormal lab findings: Abnormal Labs 12/12/16 12/12/16 12/12/16 08:06 12:27 15:23 WBC RBC Hgb Hct Plt Count Lymph % (Auto) [place] % (Auto) Lymph # Seg Neutrophils % Seg Neutrophils # PT INR POC ABG pH POC ABG pCO2 POC ABG pO2 Sodium Potassium Chloride Carbon Dioxide BUN Creatinine Glucose POC Glucose 299 H 281 H Lactic Acid 4.20 H* Calcium Phosphorus Magnesium AST Alkaline Phosphatase C-Reactive Protein Total Protein Albumin Xbdpw-0-Hzaqlyrpb Ronot-9-Mynuiekzy Beta Globulins Gamma Globulins PEP Interpretation Triglycerides LDL Cholesterol Direct HDL Cholesterol Urine WBC (Auto) RYLAN Screen RYLAN Titer Complement C3 Complement C4 12/12/16 12/12/16 12/12/16 16:53 19:51 20:43 WBC RBC Hgb Hct Plt Count Lymph % (Auto) [place] % (Auto) Lymph # Seg Neutrophils % Seg Neutrophils # PT INR POC ABG pH POC ABG pCO2 POC ABG pO2 Sodium Potassium Chloride Carbon Dioxide BUN Creatinine Glucose POC Glucose 272 H 238 H Lactic Acid 2.90 H* Calcium Phosphorus Magnesium AST Alkaline Phosphatase C-Reactive Protein Total Protein Albumin Etnld-7-Eosxntekx Piqxg-6-Rakfbappn Beta Globulins Gamma Globulins PEP Interpretation Triglycerides LDL Cholesterol Direct HDL Cholesterol Urine WBC (Auto) RYLAN Screen RYLAN Titer Complement C3 Complement C4 12/12/16 12/13/16 12/13/16 21:30 03:39 03:39 WBC RBC Hgb Hct Plt Count 118 L Lymph % (Auto) 7.4 L [place] % (Auto) 7.6 H Lymph # 0.7 L Seg Neutrophils % 84.7 H Seg Neutrophils # 8.4 H PT INR POC ABG pH POC ABG pCO2 POC ABG pO2 Sodium 133 L Potassium Chloride 96.5 L Carbon Dioxide 18 L BUN 49 H Creatinine 3.1 H D Glucose 173 H POC Glucose Lactic Acid Calcium 8.3 L D Phosphorus Magnesium 1.20 L AST Alkaline Phosphatase C-Reactive Protein Total Protein Albumin 2.6 L Sxpvj-6-Qhkgtjtzv Fniny-4-Orihuekrg Beta Globulins Gamma Globulins PEP Interpretation Triglycerides 166 H LDL Cholesterol Direct 24 L HDL Cholesterol 9 L Urine WBC (Auto) > 182.0 H RYLAN Screen RYLAN Titer Complement C3 Complement C4 12/13/16 12/13/16 12/13/16 07:41 11:53 17:23 WBC RBC Hgb Hct Plt Count Lymph % (Auto) [place] % (Auto) Lymph # Seg Neutrophils % Seg Neutrophils # PT INR POC ABG pH POC ABG pCO2 POC ABG pO2 Sodium Potassium Chloride Carbon Dioxide BUN Creatinine Glucose POC Glucose 222 H 221 H 247 H Lactic Acid Calcium Phosphorus Magnesium AST Alkaline Phosphatase C-Reactive Protein Total Protein Albumin Ttamn-2-Bfsslopuj Zyzqg-6-Jjkitzvng Beta Globulins Gamma Globulins PEP Interpretation Triglycerides LDL Cholesterol Direct HDL Cholesterol Urine WBC (Auto) RYLAN Screen RYLAN Titer Complement C3 Complement C4 12/13/16 12/14/16 12/14/16 21:29 03:35 03:35 WBC RBC 3.42 L Hgb Hct Plt Count 86 L Lymph % (Auto) 6.1 L [place] % (Auto) Lymph # 0.3 L Seg Neutrophils % 87.3 H Seg Neutrophils # PT INR POC ABG pH POC ABG pCO2 POC ABG pO2 Sodium 133 L Potassium 5.1 H Chloride 96.2 L Carbon Dioxide 17 L BUN 63 H Creatinine 4.2 H Glucose 136 H POC Glucose 185 H Lactic Acid Calcium 8.1 L Phosphorus Magnesium 1.30 L AST Alkaline Phosphatase C-Reactive Protein Total Protein Albumin Jxtpb-3-Bmlagrrxe Jixvh-7-Ojxgvyhfv Beta Globulins Gamma Globulins PEP Interpretation Triglycerides LDL Cholesterol Direct HDL Cholesterol Urine WBC (Auto) RYLAN Screen RYLAN Titer Complement C3 Complement C4 12/14/16 12/14/16 12/14/16 08:32 09:00 09:00 WBC RBC Hgb Hct Plt Count Lymph % (Auto) [place] % (Auto) Lymph # Seg Neutrophils % Seg Neutrophils # PT INR POC ABG pH POC ABG pCO2 POC ABG pO2 Sodium Potassium Chloride Carbon Dioxide BUN Creatinine Glucose POC Glucose 152 H Lactic Acid Calcium Phosphorus Magnesium AST Alkaline Phosphatase C-Reactive Protein Total Protein Albumin Nhmps-9-Tghjdoqft Qebtz-0-Zjhwlkccx Beta Globulins Gamma Globulins PEP Interpretation Triglycerides LDL Cholesterol Direct HDL Cholesterol Urine WBC (Auto) RYLAN Screen Positive H RYLAN Titer 1:320 H Complement C3 206 H Complement C4 12/14/16 12/14/16 12/14/16 09:00 09:00 11:50 WBC RBC Hgb Hct Plt Count Lymph % (Auto) [place] % (Auto) Lymph # Seg Neutrophils % Seg Neutrophils # PT INR POC ABG pH POC ABG pCO2 POC ABG pO2 Sodium Potassium Chloride Carbon Dioxide BUN Creatinine Glucose POC Glucose 168 H Lactic Acid Calcium Phosphorus Magnesium AST Alkaline Phosphatase C-Reactive Protein Total Protein Albumin 2.6 L Hgfvz-1-Sjnxbrjqj 0.7 H Sphwn-5-Xzfwoknxf 1.0 H Beta Globulins 0.7 H Gamma Globulins 0.7 L PEP Interpretation see below H Triglycerides LDL Cholesterol Direct HDL Cholesterol Urine WBC (Auto) RYLAN Screen RYLAN Titer Complement C3 Complement C4 56 H 12/14/16 12/15/16 12/15/16 17:35 04:35 04:35 WBC 4.1 L RBC 3.39 L Hgb Hct Plt Count 84 L Lymph % (Auto) 8.8 L [place] % (Auto) Lymph # 0.4 L Seg Neutrophils % 83.6 H Seg Neutrophils # PT INR POC ABG pH POC ABG pCO2 POC ABG pO2 Sodium Potassium 6.0 H Chloride Carbon Dioxide 15 L BUN 79 H Creatinine 5.0 H Glucose POC Glucose 154 H Lactic Acid Calcium 8.0 L Phosphorus 6.70 H D Magnesium AST Alkaline Phosphatase C-Reactive Protein Total Protein Albumin Zrxui-9-Lwkljboyu Fkwhn-0-Wukdouhlc Beta Globulins Gamma Globulins PEP Interpretation Triglycerides LDL Cholesterol Direct HDL Cholesterol Urine WBC (Auto) RYLAN Screen RYLAN Titer Complement C3 Complement C4 12/15/16 12/15/16 12/15/16 07:45 08:13 15:20 WBC RBC Hgb Hct Plt Count Lymph % (Auto) [place] % (Auto) Lymph # Seg Neutrophils % Seg Neutrophils # PT INR POC ABG pH 7.156 L 7.228 L POC ABG pCO2 48.7 H POC ABG pO2 232 H Sodium Potassium Chloride Carbon Dioxide BUN Creatinine Glucose POC Glucose 113 H Lactic Acid Calcium Phosphorus Magnesium AST Alkaline Phosphatase C-Reactive Protein Total Protein Albumin Xgsnn-6-Mnkbqhuff Tgygy-4-Tycreljmr Beta Globulins Gamma Globulins PEP Interpretation Triglycerides LDL Cholesterol Direct HDL Cholesterol Urine WBC (Auto) RYLAN Screen RYLAN Titer Complement C3 Complement C4 12/15/16 12/15/16 12/15/16 23:53 Unknown Unknown WBC RBC 3.19 L Hgb 9.6 L Hct 29.8 L Plt Count 108 L Lymph % (Auto) 6.5 L [place] % (Auto) Lymph # 0.4 L Seg Neutrophils % 87.1 H Seg Neutrophils # PT 16.2 H INR 1.31 H POC ABG pH POC ABG pCO2 POC ABG pO2 Sodium Potassium Chloride Carbon Dioxide BUN Creatinine Glucose POC Glucose 232 H Lactic Acid Calcium Phosphorus Magnesium AST Alkaline Phosphatase C-Reactive Protein Total Protein Albumin Mrgem-6-Rdwqblneo Hdrqe-6-Jylsaccuy Beta Globulins Gamma Globulins PEP Interpretation Triglycerides LDL Cholesterol Direct HDL Cholesterol Urine WBC (Auto) RYLAN Screen RYLAN Titer Complement C3 Complement C4 12/15/16 12/16/16 12/16/16 Unknown 04:58 05:39 WBC RBC Hgb Hct Plt Count Lymph % (Auto) [place] % (Auto) Lymph # Seg Neutrophils % Seg Neutrophils # PT INR POC ABG pH POC ABG pCO2 POC ABG pO2 143 H Sodium Potassium Chloride Carbon Dioxide 16 L BUN 85 H Creatinine 4.9 H Glucose 205 H POC Glucose 201 H Lactic Acid Calcium 8.2 L Phosphorus Magnesium AST 77 H Alkaline Phosphatase 136 H C-Reactive Protein Total Protein Albumin 2.3 L Plzfl-9-Maovkbteu Hfsbg-0-Djnqblzdg Beta Globulins Gamma Globulins PEP Interpretation Triglycerides LDL Cholesterol Direct HDL Cholesterol Urine WBC (Auto) RYLAN Screen RYLAN Titer Complement C3 Complement C4 12/16/16 12/16/16 12/16/16 06:30 06:30 06:30 WBC 4.0 L RBC 3.23 L Hgb 9.6 L Hct 29.8 L Plt Count 110 L Lymph % (Auto) 11.3 L [place] % (Auto) Lymph # 0.5 L Seg Neutrophils % 81.2 H Seg Neutrophils # PT 17.6 H INR 1.45 H POC ABG pH POC ABG pCO2 POC ABG pO2 Sodium Potassium Chloride Carbon Dioxide 20 L BUN 57 H Creatinine 3.6 H Glucose 176 H POC Glucose Lactic Acid Calcium 8.1 L Phosphorus 4.90 H D Magnesium 1.60 L AST 46 H Alkaline Phosphatase 137 H C-Reactive Protein Total Protein Albumin 2.3 L Muish-9-Rfnbonejm Ngibn-8-Nvbpjeqlo Beta Globulins Gamma Globulins PEP Interpretation Triglycerides LDL Cholesterol Direct HDL Cholesterol Urine WBC (Auto) RYLAN Screen RYLAN Titer Complement C3 Complement C4 12/16/16 12/16/16 12/16/16 11:16 15:30 17:23 WBC RBC Hgb Hct Plt Count Lymph % (Auto) [place] % (Auto) Lymph # Seg Neutrophils % Seg Neutrophils # PT INR POC ABG pH POC ABG pCO2 POC ABG pO2 Sodium Potassium Chloride Carbon Dioxide BUN Creatinine Glucose POC Glucose 194 H 209 H Lactic Acid Calcium Phosphorus Magnesium AST 43 H Alkaline Phosphatase 156 H C-Reactive Protein Total Protein 5.6 L Albumin 2.4 L Vpuba-5-Vjommzmgw Redlk-1-Esrzduyvq Beta Globulins Gamma Globulins PEP Interpretation Triglycerides LDL Cholesterol Direct HDL Cholesterol Urine WBC (Auto) RYLAN Screen RYLAN Titer Complement C3 Complement C4 12/16/16 12/17/16 12/17/16 23:35 03:38 05:18 WBC RBC Hgb Hct Plt Count Lymph % (Auto) [place] % (Auto) Lymph # Seg Neutrophils % Seg Neutrophils # PT INR POC ABG pH 7.485 H POC ABG pCO2 POC ABG pO2 Sodium Potassium Chloride Carbon Dioxide BUN Creatinine Glucose POC Glucose 179 H 201 H Lactic Acid Calcium Phosphorus Magnesium AST Alkaline Phosphatase C-Reactive Protein Total Protein Albumin Ehntw-8-Tqtgaxvay Fglgg-6-Nqknhpnwq Beta Globulins Gamma Globulins PEP Interpretation Triglycerides LDL Cholesterol Direct HDL Cholesterol Urine WBC (Auto) RYLAN Screen RYLAN Titer Complement C3 Complement C4 12/17/16 12/17/16 12/17/16 07:24 12:00 13:58 WBC RBC 3.02 L Hgb 9.2 L Hct 27.2 L Plt Count 100 L Lymph % (Auto) [place] % (Auto) 7.9 H Lymph # 0.8 L Seg Neutrophils % 75.0 H Seg Neutrophils # PT INR POC ABG pH POC ABG pCO2 POC ABG pO2 Sodium Potassium 3.3 L Chloride Carbon Dioxide BUN 50 H Creatinine 3.1 H Glucose 181 H POC Glucose 176 H Lactic Acid Calcium Phosphorus Magnesium AST Alkaline Phosphatase 155 H C-Reactive Protein Total Protein Albumin 2.2 L Ookfo-8-Rthcjfucg Hxzxe-4-Dvkumiqrf Beta Globulins Gamma Globulins PEP Interpretation Triglycerides LDL Cholesterol Direct HDL Cholesterol Urine WBC (Auto) RYLAN Screen RYLAN Titer Complement C3 Complement C4 12/17/16 12/18/16 12/18/16 17:11 00:05 05:40 WBC RBC Hgb Hct Plt Count Lymph % (Auto) [place] % (Auto) Lymph # Seg Neutrophils % Seg Neutrophils # PT INR POC ABG pH POC ABG pCO2 POC ABG pO2 Sodium Potassium Chloride Carbon Dioxide BUN Creatinine Glucose POC Glucose 152 H 155 H 170 H Lactic Acid Calcium Phosphorus Magnesium AST Alkaline Phosphatase C-Reactive Protein Total Protein Albumin Zwovn-0-Ttxwqbnso Clamt-2-Drpbuxmfl Beta Globulins Gamma Globulins PEP Interpretation Triglycerides LDL Cholesterol Direct HDL Cholesterol Urine WBC (Auto) RYLAN Screen RYLAN Titer Complement C3 Complement C4 12/18/16 12/18/16 12/18/16 07:52 12:21 15:10 WBC RBC Hgb Hct Plt Count Lymph % (Auto) [place] % (Auto) Lymph # Seg Neutrophils % Seg Neutrophils # PT INR POC ABG pH POC ABG pCO2 POC ABG pO2 Sodium Potassium 2.9 L* Chloride Carbon Dioxide BUN 69 H Creatinine 4.5 H Glucose 150 H POC Glucose 165 H 130 H Lactic Acid Calcium Phosphorus Magnesium AST Alkaline Phosphatase C-Reactive Protein Total Protein Albumin Acwgu-6-Tmaennjki Zqliz-0-Hmsumtnqr Beta Globulins Gamma Globulins PEP Interpretation Triglycerides LDL Cholesterol Direct HDL Cholesterol Urine WBC (Auto) RYLAN Screen RYLAN Titer Complement C3 Complement C4 12/18/16 12/18/16 12/19/16 18:43 23:33 03:04 WBC RBC Hgb Hct Plt Count Lymph % (Auto) [place] % (Auto) Lymph # Seg Neutrophils % Seg Neutrophils # PT INR POC ABG pH 7.455 H POC ABG pCO2 POC ABG pO2 Sodium Potassium Chloride Carbon Dioxide BUN Creatinine Glucose POC Glucose 176 H 174 H Lactic Acid Calcium Phosphorus Magnesium AST Alkaline Phosphatase C-Reactive Protein Total Protein Albumin Ioekq-7-Ejogpkvvr Dwhcj-2-Rfdgpchwt Beta Globulins Gamma Globulins PEP Interpretation Triglycerides LDL Cholesterol Direct HDL Cholesterol Urine WBC (Auto) RYLAN Screen RYLAN Titer Complement C3 Complement C4 12/19/16 12/19/16 12/19/16 05:47 10:40 10:40 WBC RBC 3.06 L Hgb 9.2 L Hct 28.0 L Plt Count 126 L Lymph % (Auto) [place] % (Auto) Lymph # Seg Neutrophils % Seg Neutrophils # PT INR POC ABG pH POC ABG pCO2 POC ABG pO2 Sodium Potassium 3.0 L Chloride Carbon Dioxide BUN 55 H Creatinine 3.4 H Glucose 161 H POC Glucose 160 H Lactic Acid Calcium Phosphorus 5.10 H Magnesium AST Alkaline Phosphatase C-Reactive Protein Total Protein Albumin Tkarh-6-Mbldbkcka Dlqmk-5-Dytambuep Beta Globulins Gamma Globulins PEP Interpretation Triglycerides LDL Cholesterol Direct HDL Cholesterol Urine WBC (Auto) RYLAN Screen RYLAN Titer Complement C3 Complement C4 12/19/16 12/19/16 12/20/16 13:00 18:04 00:04 WBC RBC Hgb Hct Plt Count Lymph % (Auto) [place] % (Auto) Lymph # Seg Neutrophils % Seg Neutrophils # PT INR POC ABG pH POC ABG pCO2 POC ABG pO2 Sodium Potassium Chloride Carbon Dioxide BUN Creatinine Glucose POC Glucose 173 H 129 H 152 H Lactic Acid Calcium Phosphorus Magnesium AST Alkaline Phosphatase C-Reactive Protein Total Protein Albumin Rehuy-2-Picpnbdou Zmxrz-4-Hpjfylfix Beta Globulins Gamma Globulins PEP Interpretation Triglycerides LDL Cholesterol Direct HDL Cholesterol Urine WBC (Auto) RYLAN Screen RYLAN Titer Complement C3 Complement C4 12/20/16 12/20/16 12/20/16 05:34 05:45 10:47 WBC RBC Hgb Hct Plt Count Lymph % (Auto) [place] % (Auto) Lymph # Seg Neutrophils % Seg Neutrophils # PT INR POC ABG pH POC ABG pCO2 POC ABG pO2 110 H Sodium Potassium 3.4 L Chloride Carbon Dioxide BUN 72 H Creatinine 4.0 H Glucose 130 H POC Glucose 175 H Lactic Acid Calcium Phosphorus Magnesium AST Alkaline Phosphatase C-Reactive Protein Total Protein Albumin Bqctl-9-Rzsvzxhkv Mrtly-7-Zihnuegqi Beta Globulins Gamma Globulins PEP Interpretation Triglycerides LDL Cholesterol Direct HDL Cholesterol Urine WBC (Auto) RYLAN Screen RYLAN Titer Complement C3 Complement C4 12/20/16 12/20/16 12/20/16 11:56 18:14 23:43 WBC RBC Hgb Hct Plt Count Lymph % (Auto) [place] % (Auto) Lymph # Seg Neutrophils % Seg Neutrophils # PT INR POC ABG pH POC ABG pCO2 POC ABG pO2 Sodium Potassium Chloride Carbon Dioxide BUN Creatinine Glucose POC Glucose 130 H 142 H 193 H Lactic Acid Calcium Phosphorus Magnesium AST Alkaline Phosphatase C-Reactive Protein Total Protein Albumin Giilv-0-Bbxjhqtnv Petpm-2-Vroqudbam Beta Globulins Gamma Globulins PEP Interpretation Triglycerides LDL Cholesterol Direct HDL Cholesterol Urine WBC (Auto) RYLAN Screen RYLAN Titer Complement C3 Complement C4 12/21/16 12/21/16 12/21/16 05:10 08:32 12:29 WBC RBC Hgb Hct Plt Count Lymph % (Auto) [place] % (Auto) Lymph # Seg Neutrophils % Seg Neutrophils # PT INR POC ABG pH POC ABG pCO2 POC ABG pO2 Sodium 146 H Potassium Chloride Carbon Dioxide BUN 85 H Creatinine 4.3 H Glucose 184 H POC Glucose 204 H 214 H Lactic Acid Calcium Phosphorus Magnesium AST Alkaline Phosphatase C-Reactive Protein Total Protein Albumin Ihnvl-6-Ofdxjdxaf Xgepz-0-Kraijjyec Beta Globulins Gamma Globulins PEP Interpretation Triglycerides LDL Cholesterol Direct HDL Cholesterol Urine WBC (Auto) RYLAN Screen RYLAN Titer Complement C3 Complement C4 12/21/16 12/21/16 12/22/16 18:06 23:31 05:38 WBC RBC Hgb Hct Plt Count Lymph % (Auto) [place] % (Auto) Lymph # Seg Neutrophils % Seg Neutrophils # PT INR POC ABG pH POC ABG pCO2 POC ABG pO2 Sodium Potassium Chloride Carbon Dioxide BUN Creatinine Glucose POC Glucose 184 H 191 H 182 H Lactic Acid Calcium Phosphorus Magnesium AST Alkaline Phosphatase C-Reactive Protein Total Protein Albumin Dmmcg-1-Wsldadcoc Nlrpe-3-Jfryiipof Beta Globulins Gamma Globulins PEP Interpretation Triglycerides LDL Cholesterol Direct HDL Cholesterol Urine WBC (Auto) RYLAN Screen RYLAN Titer Complement C3 Complement C4 12/22/16 12/22/16 12/22/16 06:30 12:23 15:07 WBC RBC Hgb Hct Plt Count Lymph % (Auto) [place] % (Auto) Lymph # Seg Neutrophils % Seg Neutrophils # PT INR POC ABG pH POC ABG pCO2 POC ABG pO2 Sodium 148 H Potassium 3.3 L Chloride Carbon Dioxide BUN 87 H Creatinine 4.4 H Glucose 186 H POC Glucose 205 H Lactic Acid Calcium Phosphorus Magnesium AST Alkaline Phosphatase C-Reactive Protein 12.10 H Total Protein Albumin Dujky-5-Jccfdrwrx Udixj-3-Mubsirwda Beta Globulins Gamma Globulins PEP Interpretation Triglycerides LDL Cholesterol Direct HDL Cholesterol Urine WBC (Auto) RYLAN Screen RYLAN Titer Complement C3 Complement C4 Chest x-ray: report reviewed, image reviewed (reduced lung volumes; lungs grossly clear)
[2016-12-22] MEDS: MAXIPIME/NS 1 GM/100 ML 1 GM/100 ML BAG IV SCH (17:21)
[2016-12-22] MEDS: HEPARIN IV PRN (17:54)
[2016-12-22] MEDS: ZOCOR PO SCH (21:23)
[2016-12-23 05:45] LABS: Basophils % (Auto) 0.3 % (0.0-1.8); Eosinophils % (Auto) 1.2 % (0.0-4.3); Hematocrit 27.9 % (30.3-42.9); Hemoglobin 9.1 gm/dl (10.1-14.3); Mean Corpuscular HGB Conc 33 % (30-34); Mean Corpuscular Hemoglobin 30 pg (28-32); Mean Corpuscular Volume 92 fl (79-97); Platelet Count 164 K/mm3 (140-440); Red Blood Count 3.05 M/mm3 (3.65-5.03); Red Cell Distribution Width 14.2 % (13.2-15.2); White Blood Count 10.4 K/mm3 (4.5-11.0)
[2016-12-23] MEDS: NOVOLOG SUB-Q SCH ×4 (06:00→17:39)
[2016-12-23] MEDS: HEPARIN SUB-Q SCH ×3 (06:00→21:41)
[2016-12-23 06:06] LABS: BUN/Creatinine Ratio 18.84; Calcium 9.1 mg/dL (8.4-10.2); Chloride 101.2 mmol/L (98-107); Potassium 3.5 mmol/L (3.6-5.0)
--- NOTE | 2016-12-23 10:07 | Progress Note ---
Assessment and Plan Assessment: 1) Sepsis: improving. Etiology most likely UTI/bacteremia. However, noted persistent fever despite appropriate IV antibiotic coverage ? VAP ? GI ? lupus flare ? central 2) Complicated UTI: Secondary to Klebsiella. renal US normal. repeat urine cx + Lyndsay-likely a colonizer 3) Klebsiella bacteremia: from UTI. Repeat blood cx 12/20 negative 4) ?Lupus flare 5) Respiratory failure 6) Encephalopathy ? anoxic ? metabolic Plan: -f/u respiratory cultures -f/u procalcitonin -legs US r/o DVT-pending -check LFTs -continue cefepime and add vancomycin renally dosed until w/u is back -if not better in 1-2 days will consider chest and abdominal imaging Thank you Dr Espinosa for your consultation, will follow up with you. Leta Xavier MD Infectious Diseases Specialist [facility] M [phone] O [phone] Subjective Date of service: 12/23/16 Principal diagnosis: Coma Interval history: Remains afebrile for 12 h, on the vent via trach. No acute events overnight. Current Antimicrobials: vanco 12/22 cefepime 12/22 Previous Antimicrobials: ceftriaxone 12/16 Microbiology: Blood cultures: 12/12 Klebsiella /2 neg Urine cultures: 12/13 Klebsiella 12/21 Lyndsay Respiratory cultures: 12/15 Lyndsay Wound cultures: Stool cultures: Other: Objective - Exam Narrative Exam: General appearance: lethargic on the vent Eyes: anicteric sclerae, moist conjunctivae; PERRLA HENT: Atraumatic; oropharynx limited Neck: Trach Lungs: suzan rhonchi CV: RRR, no murmurs Abdomen: Soft, distended Extremities: + edema, no extremity lymphadenopathy Skin: Normal temperature, turgor and texture; no rash, ulcers or subcutaneous nodules Psych: lethargic. Neuro: lethargic, not moving extremities Lines: - Constitutional Vitals: Vital Signs Temp Pulse Resp BP Pulse Ox 99.8 F H 94 H 14 125/79 98 12/23/16 08:00 12/23/16 09:00 12/23/16 09:00 12/23/16 09:00 12/23/16 09:00 Temperature -Last 24 Hours Temperature 99.8 F Temperature 99.3 F Temperature 98.7 F Temperature 98.9 F Temperature 98.9 F Temperature 98.2 F Temperature 98.2 F Temperature 102.6 F Temperature 100.2 F Temperature 100.2 F Temperature 102.6 F - Labs CBC & Chem 7: 12/23/16 05:15 12/23/16 05:15 Labs: Abnormal lab results 12/22/16 12/22/16 12/22/16 Range/Units 12:23 15:07 16:25 RBC (3.65-5.03) M/mm3 Hgb (10.1-14.3) gm/dl Hct (30.3-42.9) % Seg Neutrophils % (40.0-70.0) % Seg Neutrophils # (1.8-7.7) K/mm3 Potassium (3.6-5.0) mmol/L BUN (7-17) mg/dL Creatinine (0.7-1.2) mg/dL Glucose (65-100) mg/dL POC Glucose 205 H 187 H (70-105) C-Reactive Protein 12.10 H (0.00-1.30) mg/dL 12/22/16 12/23/16 12/23/16 Range/Units 22:49 05:15 05:15 RBC 3.05 L (3.65-5.03) M/mm3 Hgb 9.1 L (10.1-14.3) gm/dl Hct 27.9 L (30.3-42.9) % Seg Neutrophils % 77.5 H (40.0-70.0) % Seg Neutrophils # 8.1 H (1.8-7.7) K/mm3 Potassium 3.5 L (3.6-5.0) mmol/L BUN 49 H (7-17) mg/dL Creatinine 2.6 H (0.7-1.2) mg/dL Glucose 189 H (65-100) mg/dL POC Glucose 195 H (70-105) C-Reactive Protein (0.00-1.30) mg/dL 12/23/16 Range/Units 06:00 RBC (3.65-5.03) M/mm3 Hgb (10.1-14.3) gm/dl Hct (30.3-42.9) % Seg Neutrophils % (40.0-70.0) % Seg Neutrophils # (1.8-7.7) K/mm3 Potassium (3.6-5.0) mmol/L BUN (7-17) mg/dL Creatinine (0.7-1.2) mg/dL Glucose (65-100) mg/dL POC Glucose 209 H (70-105) C-Reactive Protein (0.00-1.30) mg/dL
--- NOTE | 2016-12-23 10:16 | Progress Note ---
Assessment and Plan Assessment and plan: 56-year-old woman with a past medical history of [id number] diabetes , hypertension, chronic intermittent left middle toe infection presented to the hospital with right arm weakness and slurred speech. Patient also has history of frequent falls, chronic left knee pain and osteoarthritis and was planned for knee replacement. She was admitted to the hospital for stroke workup, she was found to have acute kidney injury on admission. Her kidney function continued to worsen, she was planned for CT-guided kidney biopsy on 12/15, but while she was at CT scan, she had an episode of cardiac arrest, she received CPR , unfortunately she had a very difficult airway multiple sclerosis for attempts were tried after which she had an emergency cricothyroidotomy. She most likely had prolonged period of anoxia leading to anoxic brain injury. Her mental status has not improved since then since this incidents she has been comatose. Acute kidney injury now ESRD and HD dependent * likely secondary to ATN, nephrology input appreciated, continue hemodialysis Toxic metabolic encephalopathy * Due to kidney failure, treating underlying cause Type 2 diabetes * Continue sliding scale Hypertension * BP acceptable, continue current management Anoxic Brain Injury/ Metabolic encephalopathy * She had an MRI of her brain on 12/12 did not show any acute changes * MRI brain shows ischemic injury in the subinsular regions, caudate nucleus, right posterior hippocampus * She most likely suffered this anoxic brain injury when she was in cardiac arrest. Sepsis secondary to UTI * Rocephin stopPed * started on cefepime and vancomycin * fever- repeat Blood cultures * Repeat ct chest and abdomen in 1-2 days if no improvement * Klebsiella/candidada Gram negative septicemia/sepsis * blood culture growing Klebsiella PNA, which is sensitive to Ceftriaxone * continue abx till 12/27 * ID input appreciated, abx have been changed to broaden coverage, will consider further imaging if not improved in 2 days Acute respiratory failure, on MV greater than 96 hours * initially had emergent cricothyroidotomy on 12/15, and then sp tracheostomy on 12/18 * Continue ventilator Abdominal Distension * fup CT abdomen Cardiogenic shock * Has been weaned off pressors Hyperkalemia Resolved with dialysis Hypokalemia Replete judiciously, given that she has TAYA Hypomagnesemia Was replaced . Hyperlipidemia Continue statin Hypothyroidism TSH within normal limits Continue Synthroid at current dose Obesity Hypoventilation/SHELIA continue vent DVT prophylaxis continue heparin Discussed with family and consultants Prognosis is poor. patient will likely SNF placement vs Hospice Placement, Her has been very resistant to hearing the poor prognosis of his . will need to organize a family meeting to discuss goals of care will recommend ltac eval The high probability of a clinically significant, sudden or life threatening deterioration of the [pulmonary, cardiovascular, renal] system(s) required my full and direct attention, intervention and personal management. The aggregate critical care time was [33] minutes. This time is in addition to time spent performing reported procedures but includes the following: [X] Data Review and interpretation [X] Patient assessment and monitoring of vital signs [X] Documentation [X] Medication orders and management History Interval history: Patient seen and examined, remains in mild respiratory distress and not following commands. Hospitalist Physical - Physical exam Narrative exam: VITAL SIGNS: Reviewed. GENERAL: The patient appeared well nourished and normally developed. Vital signs as documented. HEAD: No signs of head trauma. EYES: Pupils are equal. Extraocular motions intact. EARS: Hearing grossly intact. MOUTH: Oropharynx is normal. NECK: No adenopathy, no JVD, tracheostomy site clean T piece in place. CHEST: Chest with crackles breath sounds bilaterally. CARDIAC: Regular rate and rhythm. S1 and S2, without murmurs, gallops, or rubs. VASCULAR: No Edema. Peripheral pulses normal and equal in all extremities. ABDOMEN: Soft, without detectable tenderness. No sign of distention. No rebound or guarding, and no masses palpated. Bowel Sounds normal. MUSCULOSKELETAL: Good range of motion of all major joints. Extremities without clubbing, cyanosis or edema. NEUROLOGIC EXAM: Awake but disoriented not following commands. Unable to assess strength and sensory PSYCHIATRIC: unable to assess SKIN: No rash or lesions. - Constitutional Vitals: Temp Pulse Resp BP Pulse Ox 99.8 F H 94 H 14 125/79 98 12/23/16 08:00 12/23/16 09:00 12/23/16 09:00 12/23/16 09:00 12/23/16 09:00 General appearance: Present: obese Results - Labs CBC & Chem 7: 12/23/16 05:15 12/24/16 05:00 Labs: Laboratory Last Values WBC 10.4 K/mm3 (4.5-11.0) 12/23/16 05:15 RBC 3.05 M/mm3 (3.65-5.03) L 12/23/16 05:15 Hgb 9.1 gm/dl (10.1-14.3) L 12/23/16 05:15 Hct 27.9 % (30.3-42.9) L 12/23/16 05:15 MCV 92 fl (79-97) 12/23/16 05:15 MCH 30 pg (28-32) 12/23/16 05:15 MCHC 33 % (30-34) 12/23/16 05:15 RDW 14.2 % (13.2-15.2) 12/23/16 05:15 Plt Count 164 K/mm3 (140-440) 12/23/16 05:15 Lymph % (Auto) 16.1 % (13.4-35.0) 12/23/16 05:15 Rankin % (Auto) 4.9 % (0.0-7.3) 12/23/16 05:15 Eos % (Auto) 1.2 % (0.0-4.3) 12/23/16 05:15 Baso % (Auto) 0.3 % (0.0-1.8) 12/23/16 05:15 Lymph # 1.7 K/mm3 (1.2-5.4) 12/23/16 05:15 Rankin # 0.5 K/mm3 (0.0-0.8) 12/23/16 05:15 Eos # 0.1 K/mm3 (0.0-0.4) 12/23/16 05:15 Baso # 0.0 K/mm3 (0.0-0.1) 12/23/16 05:15 Seg Neutrophils % 77.5 % (40.0-70.0) H 12/23/16 05:15 Seg Neutrophils # 8.1 K/mm3 (1.8-7.7) H 12/23/16 05:15 PT 17.6 Sec. (12.2-14.9) H 12/16/16 06:30 INR 1.45 (0.87-1.13) H 12/16/16 06:30 APTT 27.6 Sec. (24.2-36.6) 12/11/16 23:50 Thrombin Time 16.6 Sec. (15.1-19.6) 12/11/16 23:50 POC ABG pH 7.431 (7.35-7.45) 12/21/16 09:22 POC ABG pCO2 35.7 (35-45) 12/21/16 09:22 POC ABG pO2 96 (80-105) 12/21/16 09:22 POC ABG HCO3 23.8 12/21/16 09:22 POC ABG Total CO2 25 12/21/16 09:22 POC ABG O2 Sat 98 12/21/16 09:22 POC ABG Base Excess -1 12/21/16 09:22 FiO2 30 % 12/21/16 09:22 Sodium 141 mmol/L (137-145) 12/23/16 05:15 Potassium 3.5 mmol/L (3.6-5.0) L 12/23/16 05:15 Chloride 101.2 mmol/L (98-107) 12/23/16 05:15 Carbon Dioxide 26 mmol/L (22-30) 12/23/16 05:15 Anion Gap 17 mmol/L 12/23/16 05:15 BUN 49 mg/dL (7-17) H 12/23/16 05:15 Creatinine 2.6 mg/dL (0.7-1.2) H 12/23/16 05:15 Estimated GFR 19 ml/min 12/23/16 05:15 BUN/Creatinine Ratio 18.84 % 12/23/16 05:15 Glucose 189 mg/dL (65-100) H 12/23/16 05:15 POC Glucose 209 (70-105) H 12/23/16 06:00 Lactic Acid 1.80 mmol/L (0.7-2.0) 12/15/16 Unknown Calcium 9.1 mg/dL (8.4-10.2) 12/23/16 05:15 Phosphorus 5.10 mg/dL (2.5-4.5) H 12/19/16 10:40 Magnesium 1.80 mg/dL (1.7-2.3) 12/19/16 10:40 Total Bilirubin 0.30 mg/dL (0.1-1.2) 12/17/16 07:24 Direct Bilirubin < 0.2 mg/dL (0-0.2) 12/16/16 15:30 Indirect Bilirubin 0.0 mg/dL 12/16/16 15:30 AST 40 units/L (5-40) 12/17/16 07:24 ALT 27 units/L (7-56) 12/17/16 07:24 Alkaline Phosphatase 155 units/L (35-129) H 12/17/16 07:24 Total Creatine Kinase 73 units/L (30-135) 12/15/16 04:35 Troponin T < 0.010 ng/mL (0.00-0.029) 12/11/16 23:50 C-Reactive Protein 12.10 mg/dL (0.00-1.30) H 12/22/16 15:07 Serum Total Protein 6.1 g/dL (6.1-8.1) 12/14/16 09:00 Total Protein 6.3 g/dL (6.3-8.2) 12/17/16 07:24 Albumin 2.2 g/dL (3.9-5) L 12/17/16 07:24 Albumin/Globulin Ratio 0.5 % 12/17/16 07:24 Dhfhh-1-Zzqnnnmel 0.7 g/dL (0.2-0.3) H 12/14/16 09:00 Jqvfw-3-Qeozavjpa 1.0 g/dL (0.5-0.9) H 12/14/16 09:00 Beta Globulins 0.7 g/dL (0.2-0.5) H 12/14/16 09:00 Gamma Globulins 0.7 g/dL (0.8-1.7) L 12/14/16 09:00 Abnorm Protein Band 1 see below 12/14/16 09:00 PEP Interpretation see below H 12/14/16 09:00 Triglycerides 166 mg/dL (2-149) H 12/13/16 03:39 Cholesterol 66 mg/dL (50-199) 12/13/16 03:39 LDL Cholesterol Direct 24 mg/dL (50-130) L 12/13/16 03:39 HDL Cholesterol 9 mg/dL (40-59) L 12/13/16 03:39 Cholesterol/HDL Ratio 7.33 % 12/13/16 03:39 TSH 2.640 mlU/mL (0.270-4.200) 12/12/16 15:23 Urine Color Yellow (Yellow) 12/12/16 21:30 Urine Turbidity Turbid (Clear) 12/12/16 21:30 Urine pH 5.0 (5.0-7.0) 12/12/16 21:30 Ur Specific Viola 1.015 (1.003-1.030) 12/12/16 21:30 Urine Protein 100 mg/dl mg/dL (Negative) 12/12/16 21:30 Urine Glucose (UA) Neg mg/dL (Negative) 12/12/16 21:30 Urine Ketones Neg mg/dL (Negative) 12/12/16 21:30 Urine Blood Lg (Negative) 12/12/16 21:30 Urine Nitrite Neg (Negative) 12/12/16 21:30 Urine Bilirubin Neg (Negative) 12/12/16 21:30 Urine Urobilinogen < 2.0 mg/dL (<2.0) 12/12/16 21:30 Ur Leukocyte Esterase Lg (Negative) 12/12/16 21:30 Urine WBC (Auto) > 182.0 /HPF (0.0-6.0) H 12/12/16 21:30 Urine RBC (Auto) 62.0 /HPF (0.0-6.0) 12/12/16 21:30 U Epithel Cells (Auto) 7.0 /HPF (0-13.0) 12/12/16 21:30 Urine Bacteria (Auto) 4+ /HPF (Negative) 12/12/16 21:30 Urine WBC Clumps 3+ /HPF 12/12/16 21:30 Calcium Oxalate Crystal 3+ 12/12/16 21:30 Urine Opiates Screen Presumptive negative 12/12/16 21:30 Urine Methadone Screen Presumptive negative 12/12/16 21:30 Ur Barbiturates Screen Presumptive negative 12/12/16 21:30 Ur Phencyclidine Scrn Presumptive negative 12/12/16 21:30 Ur Amphetamines Screen Presumptive negative 12/12/16 21:30 U Benzodiazepines Scrn Presumptive negative 12/12/16 21:30 Urine Cocaine Screen Presumptive negative 12/12/16 21:30 U Marijuana (THC) Screen Presumptive negative 12/12/16 21:30 Drugs of Abuse Note Disclamer 12/12/16 21:30 RYLAN Screen Positive (Negative) H 12/14/16 09:00 RYLAN Titer 1:320 (Negative) H 12/14/16 09:00 RYLAN Pattern Homogeneous 12/14/16 09:00 Proteinase 3 (PR3) Ab <1.0 AI (<1.0) 12/14/16 09:00 Myeloperoxidase Ab <1.0 AI (<1.0) 12/14/16 09:00 Glomerular Base Mem IgG <1.0 AI (<1.0) 12/14/16 09:00 Complement C3 206 mg/dL (90-180) H 12/14/16 09:00 Complement C4 56 mg/dL (16-47) H 12/14/16 09:00 Hepatitis A IgM Ab Non-reactive (NonReactive) 12/18/16 18:30 Hep Bs Antigen Non-reactive (Negative) 12/18/16 18:30 Hep B Core IgM Ab Non-reactive (NonReactive) 12/18/16 18:30 Hepatitis C Antibody Non-reactive (NonReactive) 12/18/16 18:30 Renal Biopsy Scanned into [facility] rec 12/15/16 13:43 - Imaging and Cardiology MRI - abdomen: image reviewed (no), other (no acute pathology)
[2016-12-23] MEDS: MAXIPIME/NS 1 GM/100 ML 1 GM/100 ML BAG IV SCH (10:38)
[2016-12-23] MEDS: LEVEMIR SUB-Q SCH (10:39)
[2016-12-23] MEDS: PEPCID PO SCH (10:39)
[2016-12-23] MEDS: COREG PO SCH ×2 (10:39→21:40)
[2016-12-23] MEDS: ASPIRIN PO SCH (10:39)
--- NOTE | 2016-12-23 10:42 | Progress Note ---
Assessment and Plan - Patient Problems (1) Acute kidney failure with tubular necrosis Current Visit: Yes Status: Acute Plan to address problem: Pt remains dialysis dependent for significant azotemia. however, somewhat increased urine output noted ~1L/day. Continue to monitor for renal recovery. Hemodialysis today and then Thursday, Thursday and Thursday (2) Sepsis due to urinary tract infection Current Visit: Yes Status: Acute Plan to address problem: Continue antibiotics and follow (3) Type 2 diabetes mellitus Current Visit: Yes Status: Chronic Qualifiers: Diabetes mellitus complication status: D Diabetes mellitus complication detail: D Diabetic retinopathy severity: D Proliferative retinopathy type: P Diabetes mellitus macular edema: D Diabetes mellitus half-way insulin use : D Laterality: L Chronic kidney disease stage: C Plan to address problem: Blood sugar control by primary attending (4) Hypertension Current Visit: Yes Status: Chronic Qualifiers: Hypertension type: H Plan to address problem: Blood pressure improved on low-dose beta ariana with parameters to hold (5) Anoxic encephalopathy Current Visit: Yes Status: Acute Plan to address problem: Continue management by neurologist. [place] for improvement in neurologic status Subjective Date of service: 12/23/16 Principal diagnosis: Coma Interval history: pt grimacing on pain stimuli, not interacting Objective - Vital Signs Vital signs: Vital Signs - 12hr 12/22/16 12/22/16 12/22/16 22:56 23:00 23:02 Temperature Pulse Rate 74 82 Pulse Rate [ 81 From Monitor] Pulse Rate [ 81 Left Dorsalis Pedis] Pulse Rate [ 81 Left Radial] Pulse Rate [ 81 Right Dorsalis Pedis] Pulse Rate [ 81 Right Radial] Respiratory 17 17 16 Rate Blood Pressure 108/64 108/64 O2 Sat by Pulse 99 97 100 Oximetry O2 Sat by Pulse Oximetry [ Assessment] 12/22/16 12/22/16 12/22/16 23:15 23:16 23:30 Temperature 98.7 F Pulse Rate 84 77 Pulse Rate [ From Monitor] Pulse Rate [ Left Dorsalis Pedis] Pulse Rate [ Left Radial] Pulse Rate [ Right Dorsalis Pedis] Pulse Rate [ Right Radial] Respiratory 19 Rate Blood Pressure 108/64 O2 Sat by Pulse 99 Oximetry O2 Sat by Pulse Oximetry [ Assessment] 12/22/16 12/22/16 12/23/16 23:39 23:41 00:00 Temperature Pulse Rate 85 85 Pulse Rate [ From Monitor] Pulse Rate [ Left Dorsalis Pedis] Pulse Rate [ Left Radial] Pulse Rate [ Right Dorsalis Pedis] Pulse Rate [ Right Radial] Respiratory 16 Rate Blood Pressure 108/64 123/73 O2 Sat by Pulse 99 97 Oximetry O2 Sat by Pulse 99 Oximetry [ Assessment] 12/23/16 12/23/16 12/23/16 00:30 01:00 01:30 Temperature Pulse Rate 83 80 81 Pulse Rate [ From Monitor] Pulse Rate [ Left Dorsalis Pedis] Pulse Rate [ Left Radial] Pulse Rate [ Right Dorsalis Pedis] Pulse Rate [ Right Radial] Respiratory 17 16 17 Rate Blood Pressure 123/73 113/67 113/67 O2 Sat by Pulse 99 95 98 Oximetry O2 Sat by Pulse Oximetry [ Assessment] 12/23/16 12/23/16 12/23/16 02:00 02:30 03:00 Temperature Pulse Rate 86 86 84 Pulse Rate [ From Monitor] Pulse Rate [ Left Dorsalis Pedis] Pulse Rate [ Left Radial] Pulse Rate [ Right Dorsalis Pedis] Pulse Rate [ Right Radial] Respiratory 16 20 15 Rate Blood Pressure 113/67 113/67 114/68 O2 Sat by Pulse 99 99 95 Oximetry O2 Sat by Pulse Oximetry [ Assessment] 12/23/16 12/23/16 12/23/16 03:23 03:30 03:31 Temperature 99.3 F Pulse Rate 81 Pulse Rate [ 76 From Monitor] Pulse Rate [ 76 Left Dorsalis Pedis] Pulse Rate [ 76 Left Radial] Pulse Rate [ 76 Right Dorsalis Pedis] Pulse Rate [ 76 Right Radial] Respiratory 15 17 Rate Blood Pressure 114/68 O2 Sat by Pulse 98 98 Oximetry O2 Sat by Pulse Oximetry [ Assessment] 12/23/16 12/23/16 12/23/16 03:42 04:00 04:30 Temperature Pulse Rate 85 83 87 Pulse Rate [ From Monitor] Pulse Rate [ Left Dorsalis Pedis] Pulse Rate [ Left Radial] Pulse Rate [ Right Dorsalis Pedis] Pulse Rate [ Right Radial] Respiratory 18 20 Rate Blood Pressure 114/68 128/72 128/72 O2 Sat by Pulse 98 95 98 Oximetry O2 Sat by Pulse Oximetry [ Assessment] 12/23/16 12/23/16 12/23/16 05:00 05:30 06:00 Temperature Pulse Rate 77 83 86 Pulse Rate [ From Monitor] Pulse Rate [ Left Dorsalis Pedis] Pulse Rate [ Left Radial] Pulse Rate [ Right Dorsalis Pedis] Pulse Rate [ Right Radial] Respiratory 17 18 17 Rate Blood Pressure 124/67 124/67 124/75 O2 Sat by Pulse 97 98 98 Oximetry O2 Sat by Pulse Oximetry [ Assessment] 12/23/16 12/23/16 12/23/16 06:30 07:00 07:30 Temperature Pulse Rate 82 89 92 H Pulse Rate [ From Monitor] Pulse Rate [ Left Dorsalis Pedis] Pulse Rate [ Left Radial] Pulse Rate [ Right Dorsalis Pedis] Pulse Rate [ Right Radial] Respiratory 15 13 19 Rate Blood Pressure 124/75 126/81 O2 Sat by Pulse 99 98 99 Oximetry O2 Sat by Pulse Oximetry [ Assessment] 12/23/16 12/23/16 12/23/16 07:57 08:00 08:05 Temperature 99.8 F H Pulse Rate 34 L 91 H Pulse Rate [ 96 H From Monitor] Pulse Rate [ Left Dorsalis Pedis] Pulse Rate [ Left Radial] Pulse Rate [ Right Dorsalis Pedis] Pulse Rate [ Right Radial] Respiratory 13 23 Rate Blood Pressure 126/81 122/78 O2 Sat by Pulse 99 98 99 Oximetry O2 Sat by Pulse Oximetry [ Assessment] 12/23/16 12/23/16 12/23/16 08:13 08:14 08:31 Temperature Pulse Rate 96 H 97 H Pulse Rate [ From Monitor] Pulse Rate [ Left Dorsalis Pedis] Pulse Rate [ Left Radial] Pulse Rate [ Right Dorsalis Pedis] Pulse Rate [ Right Radial] Respiratory 23 13 Rate Blood Pressure 122/78 122/78 O2 Sat by Pulse 98 98 98 Oximetry O2 Sat by Pulse Oximetry [ Assessment] 12/23/16 12/23/16 08:40 09:00 Temperature Pulse Rate 96 H 94 H Pulse Rate [ From Monitor] Pulse Rate [ Left Dorsalis Pedis] Pulse Rate [ Left Radial] Pulse Rate [ Right Dorsalis Pedis] Pulse Rate [ Right Radial] Respiratory 14 Rate Blood Pressure 125/79 O2 Sat by Pulse 98 Oximetry O2 Sat by Pulse Oximetry [ Assessment] - General Appearance General appearance: well-developed, well-nourished, obese, sedated on ventilator , comatose EENT: ATNC, PERRL, mucous membranes moist Neck: no JVD Respiratory: Present: Decreased Breath Sounds Cardiology: regular, S1S2 Gastrointestinal: obese Integumentary: no rash, other (trace edema ) Neurologic: obtunded - Lab 12/23/16 05:15 12/23/16 05:15 Most recent lab results Calcium 9.1 mg/dL (8.4-10.2) 12/23/16 05:15 Phosphorus 5.10 mg/dL (2.5-4.5) H 12/19/16 10:40 Magnesium 1.80 mg/dL (1.7-2.3) 12/19/16 10:40
[2016-12-23 11:56] LABS: ISTAT Base Excess 2; ISTAT HCO3 26.7; ISTAT PCO2 39.9 (35-45); ISTAT PH 7.433 (7.35-7.45); ISTAT PO2 187 (80-105); ISTAT SO2 100; ISTAT TCO2 28
--- NOTE | 2016-12-23 11:58 | XRay Report ---
AP CHEST: HISTORY: Right arm PICC placement The right arm PICC terminates in the mid right atrium. The left IJ venous catheter, tracheostomy and nasogastric tube remain in good position. Borderline to mild cardiomegaly is stable. The lungs remain clear. No evidence for pneumonia, CHF or pneumothorax. IMPRESSION: Right arm PICC placement as described. Otherwise, no change since yesterday's exam.
--- NOTE | 2016-12-23 16:42 | Progress Note ---
Assessment and Plan Imp: 1. UTI/bacteremia/sepsis 2. TAYA -> ATN 3. S/p CP arrest 4. Anoxic encephalopathy 5. S/p Trach 6. Morbid obesity 7. Acute respiratory failure, hypoxia Rec: 1. F/u repeat cultures; ABX as per ID 2. T-piece trials daily; rest on ACVC tonight 3. Cont. TFs and titrate to goal; will need PEG at some point 4. Holding all sedation; neurology f/u 5. DVT PPx 6. Guarded prognosis; agree w/ LTAC Plan of care reviewed w/ , he understands/agrees CCT 31 minutes Subjective Date of service: 12/23/16 Principal diagnosis: Coma Interval history: No events. Tolerating Tpiece. Opens eyes minimally, not following commands or answering questions. On TFs at 20cc/hour. Active Medications Acetaminophen (Tylenol) 650 mg PO Q4H PRN PRN Reason: Pain, Mild (1-3) Last Admin: 12/21/16 16:06 Dose: 650 mg Albumin Human (Alburx 25% (Albumin)) 12.5 gm IV DIPESH PRN PRN Reason: Hypotension Lipase/Protease/Amylase (Pancreaze Dr 10,500 Unit) 1 each FEEDTUBE PRN PRN PRN Reason: For Clogged Feeding Tube Artificial Tears (Isopto Tears 0.5%) 2 drops OU Q4H PRN PRN Reason: Dry Eye(s) Last Admin: 12/16/16 05:25 Dose: 2 drops Aspirin (Aspirin) 325 mg PO QDAY [facility] Last Admin: 12/23/16 10:39 Dose: 325 mg Bisacodyl (Dulcolax) 10 mg AR QDAY PRN PRN Reason: Constipation Carvedilol (Coreg) 3.125 mg PO BID [facility] Last Admin: 12/23/16 10:39 Dose: 3.125 mg Dextrose (D50w (25gm)) 50 ml IV PRN PRN PRN Reason: Hypoglycemia Last Admin: 12/15/16 10:25 Dose: 50 ml Famotidine (Pepcid) 20 mg PO DAILY [facility] Last Admin: 12/23/16 10:39 Dose: 20 mg Heparin Sodium (Porcine) (Heparin) 5,000 unit SUB-Q Q8HR [facility] Last Admin: 12/23/16 14:12 Dose: 5,000 unit Heparin Sodium (Porcine) (Heparin) 5,000 unit IV DIPESH PRN PRN Reason: dwell Last Admin: 12/22/16 17:54 Dose: 5,000 unit Hydralazine HCl (Apresoline) 5 mg IV Q6H PRN PRN Reason: Keep SBP between 160-185 mm Hg Sodium Chloride (Nacl 0.9%) 100 mls @ 999 mls/hr IV DIPESH PRN PRN Reason: Hypotension Norepinephrine (Levophed Drip 4 Mg/Ns 250 Ml) 4 mg in 250 mls @ 7.5 mls/hr IV TITR LENARD; 2 MCG/MIN PRN Reason: Protocol Last Titration: 12/16/16 17:00 Dose: Infused Sodium Chloride (Nacl 0.9%) 100 mls @ 999 mls/hr IV DIPESH PRN PRN Reason: Hypotension Cefepime HCl (Maxipime/Ns 1 Gm/100 Ml) 1 gm in 100 mls @ 200 mls/hr IV Q24HR LENARD PRN Reason: Protocol Last Admin: 12/23/16 10:38 Dose: 200 mls/hr Insulin Aspart (Novolog) 0 units SUB-Q Q6HR LENARD PRN Reason: Protocol Last Admin: 12/23/16 12:29 Dose: 4 units Insulin Detemir (Levemir) 5 units SUB-Q DAILY [facility] Last Admin: 12/23/16 10:39 Dose: 5 units Magnesium Hydroxide (Milk Of Magnesia) 30 ml PO Q4H PRN PRN Reason: Constipation Ondansetron HCl (Zofran) 4 mg IV Q8H PRN PRN Reason: N/V unrelieved by Reglan Simple Syrup (Simple Syrup) 15 ml FEEDTUBE PRN PRN PRN Reason: Hypoglycemia Simple Syrup (Simple Syrup) 30 ml FEEDTUBE PRN PRN PRN Reason: Hypoglycemia Simvastatin (Zocor) 20 mg PO QHS [facility] Last Admin: 12/22/16 21:23 Dose: 20 mg Sodium Bicarbonate (Sodium Bicarbonate) 325 mg FEEDTUBE PRN PRN PRN Reason: For Clogged Feeding Tube Sodium Chloride (Sodium Chloride Flush Syringe 10 Ml) 10 ml IV PRN PRN PRN Reason: LINE FLUSH Vancomycin HCl (Vancomycin Pharmacy To Dose) 1 each IV PKCONSULT [facility] Objective Vital Signs - 12hr 12/23/16 12/23/1617 05:00 05:30 06:00 Temperature Pulse Rate 77 83 86 Pulse Rate [ From Monitor] Respiratory 17 18 17 Rate Blood Pressure 124/67 124/67 124/75 O2 Sat by Pulse 97 98 98 Oximetry O2 Sat by Pulse Oximetry [ Assessment] 12/23/16 12/23/16 12/23/16 06:30 07:00 07:30 Temperature Pulse Rate 82 89 92 H Pulse Rate [ From Monitor] Respiratory 15 13 19 Rate Blood Pressure 124/75 126/81 O2 Sat by Pulse 99 98 99 Oximetry O2 Sat by Pulse Oximetry [ Assessment] 12/23/16 12/23/16 12/23/16 07:57 08:00 08:05 Temperature 99.8 F H Pulse Rate 34 L 91 H Pulse Rate [ 96 H From Monitor] Respiratory 13 23 Rate Blood Pressure 126/81 122/78 O2 Sat by Pulse 99 98 99 Oximetry O2 Sat by Pulse Oximetry [ Assessment] 12/23/16 12/23/16 12/23/16 08:13 08:14 08:31 Temperature Pulse Rate 96 H 97 H Pulse Rate [ From Monitor] Respiratory 23 13 Rate Blood Pressure 122/78 122/78 O2 Sat by Pulse 98 98 98 Oximetry O2 Sat by Pulse Oximetry [ Assessment] 12/23/16 12/23/16 12/23/16 08:40 09:00 09:31 Temperature Pulse Rate 96 H 94 H 95 H Pulse Rate [ From Monitor] Respiratory 14 12 Rate Blood Pressure 125/79 125/79 O2 Sat by Pulse 98 98 Oximetry O2 Sat by Pulse Oximetry [ Assessment] 12/23/16 12/23/16 12/23/16 10:00 10:31 10:39 Temperature Pulse Rate 95 H 100 H 101 H Pulse Rate [ From Monitor] Respiratory 16 19 Rate Blood Pressure 113/77 113/77 113/77 O2 Sat by Pulse 96 100 Oximetry O2 Sat by Pulse Oximetry [ Assessment] 12/23/16 12/23/16 12/23/16 10:59 11:00 11:31 Temperature Pulse Rate 101 H 97 H Pulse Rate [ From Monitor] Respiratory 16 23 Rate Blood Pressure 132/89 132/89 O2 Sat by Pulse 100 98 100 Oximetry O2 Sat by Pulse Oximetry [ Assessment] 12/23/16 12/23/16 12/23/16 11:39 11:45 12:00 Temperature 99.9 F H Pulse Rate 99 H Pulse Rate [ 97 H From Monitor] Respiratory 23 25 H Rate Blood Pressure 115/78 O2 Sat by Pulse 99 96 96 Oximetry O2 Sat by Pulse Oximetry [ Assessment] 12/23/16 12/23/16 12/23/16 12:08 12:31 13:00 Temperature Pulse Rate 95 H 95 H Pulse Rate [ From Monitor] Respiratory 18 22 Rate Blood Pressure 115/78 134/84 O2 Sat by Pulse 98 Oximetry O2 Sat by Pulse 97 Oximetry [ Assessment] 12/23/16 12/23/16 13:31 14:00 Temperature Pulse Rate 99 H 101 H Pulse Rate [ From Monitor] Respiratory 20 22 Rate Blood Pressure 134/84 120/87 O2 Sat by Pulse 98 97 Oximetry O2 Sat by Pulse Oximetry [ Assessment] Constitutional: other (eyes open, nothing purposeful) Eyes: non-icteric ENT: oropharynx moist, other (trach midline) Neck: supple, other (large in circumference) Effort: normal Ascultation: Bilateral: clear Cardiovascular: regular rate and rhythm (no mrg) Gastrointestinal: normoactive bowel sounds, non-distended, other (obese) Integumentary: normal Extremities: no cyanosis, no edema, pink and warm Neurologic: other (flaccid extremities, not following commands) Psychiatric: other (not able to assess) CBC and BMP: 12/23/16 05:15 12/23/16 05:15 ABG, PT/INR, D-dimer: ABG POC ABG pH 7.433 (7.35-7.45) 12/23/16 11:54 POC ABG pCO2 39.9 (35-45) 12/23/16 11:54 POC ABG pO2 187 (80-105) H 12/23/16 11:54 POC ABG HCO3 26.7 12/23/16 11:54 POC ABG Total CO2 28 12/23/16 11:54 POC ABG O2 Sat 100 12/23/16 11:54 PT/INR, D-dimer PT 17.6 Sec. (12.2-14.9) H 12/16/16 06:30 INR 1.45 (0.87-1.13) H 12/16/16 06:30 Abnormal lab findings: Abnormal Labs 12/12/16 12/12/16 12/12/16 08:06 12:27 15:23 WBC RBC Hgb Hct Plt Count Lymph % (Auto) [place] % (Auto) Lymph # Seg Neutrophils % Seg Neutrophils # PT INR POC ABG pH POC ABG pCO2 POC ABG pO2 Sodium Potassium Chloride Carbon Dioxide BUN Creatinine Glucose POC Glucose 299 H 281 H Lactic Acid 4.20 H* Calcium Phosphorus Magnesium AST Alkaline Phosphatase C-Reactive Protein Total Protein Albumin Pueqs-3-Qxpiamcyi Huwrp-2-Jzuzbrcsu Beta Globulins Gamma Globulins PEP Interpretation Triglycerides LDL Cholesterol Direct HDL Cholesterol Urine WBC (Auto) RYLAN Screen RYLAN Titer Complement C3 Complement C4 12/12/16 12/12/16 12/12/16 16:53 19:51 20:43 WBC RBC Hgb Hct Plt Count Lymph % (Auto) [place] % (Auto) Lymph # Seg Neutrophils % Seg Neutrophils # PT INR POC ABG pH POC ABG pCO2 POC ABG pO2 Sodium Potassium Chloride Carbon Dioxide BUN Creatinine Glucose POC Glucose 272 H 238 H Lactic Acid 2.90 H* Calcium Phosphorus Magnesium AST Alkaline Phosphatase C-Reactive Protein Total Protein Albumin Lwgtw-4-Bnkermaov Kakhb-8-Qhrmhmsem Beta Globulins Gamma Globulins PEP Interpretation Triglycerides LDL Cholesterol Direct HDL Cholesterol Urine WBC (Auto) RYLAN Screen RYLAN Titer Complement C3 Complement C4 12/12/16 12/13/16 12/13/16 21:30 03:39 03:39 WBC RBC Hgb Hct Plt Count 118 L Lymph % (Auto) 7.4 L [place] % (Auto) 7.6 H Lymph # 0.7 L Seg Neutrophils % 84.7 H Seg Neutrophils # 8.4 H PT INR POC ABG pH POC ABG pCO2 POC ABG pO2 Sodium 133 L Potassium Chloride 96.5 L Carbon Dioxide 18 L BUN 49 H Creatinine 3.1 H D Glucose 173 H POC Glucose Lactic Acid Calcium 8.3 L D Phosphorus Magnesium 1.20 L AST Alkaline Phosphatase C-Reactive Protein Total Protein Albumin 2.6 L Gppao-0-Tomsdljbg Uztxp-2-Awtiwflbh Beta Globulins Gamma Globulins PEP Interpretation Triglycerides 166 H LDL Cholesterol Direct 24 L HDL Cholesterol 9 L Urine WBC (Auto) > 182.0 H RYLAN Screen RYLAN Titer Complement C3 Complement C4 12/13/16 12/13/16 12/13/16 07:41 11:53 17:23 WBC RBC Hgb Hct Plt Count Lymph % (Auto) [place] % (Auto) Lymph # Seg Neutrophils % Seg Neutrophils # PT INR POC ABG pH POC ABG pCO2 POC ABG pO2 Sodium Potassium Chloride Carbon Dioxide BUN Creatinine Glucose POC Glucose 222 H 221 H 247 H Lactic Acid Calcium Phosphorus Magnesium AST Alkaline Phosphatase C-Reactive Protein Total Protein Albumin Duwql-6-Iojsumkng Wzozw-6-Wmjqicvbj Beta Globulins Gamma Globulins PEP Interpretation Triglycerides LDL Cholesterol Direct HDL Cholesterol Urine WBC (Auto) RYLAN Screen RYLAN Titer Complement C3 Complement C4 12/13/16 12/14/16 12/14/16 21:29 03:35 03:35 WBC RBC 3.42 L Hgb Hct Plt Count 86 L Lymph % (Auto) 6.1 L [place] % (Auto) Lymph # 0.3 L Seg Neutrophils % 87.3 H Seg Neutrophils # PT INR POC ABG pH POC ABG pCO2 POC ABG pO2 Sodium 133 L Potassium 5.1 H Chloride 96.2 L Carbon Dioxide 17 L BUN 63 H Creatinine 4.2 H Glucose 136 H POC Glucose 185 H Lactic Acid Calcium 8.1 L Phosphorus Magnesium 1.30 L AST Alkaline Phosphatase C-Reactive Protein Total Protein Albumin [place]-0-Pokakwlkf Zgpuz-0-Kkajrscry Beta Globulins Gamma Globulins PEP Interpretation Triglycerides LDL Cholesterol Direct HDL Cholesterol Urine WBC (Auto) RYLAN Screen RYLAN Titer Complement C3 Complement C4 12/14/16 12/14/16 12/14/16 08:32 09:00 09:00 WBC RBC Hgb Hct Plt Count Lymph % (Auto) [place] % (Auto) Lymph # Seg Neutrophils % Seg Neutrophils # PT INR POC ABG pH POC ABG pCO2 POC ABG pO2 Sodium Potassium Chloride Carbon Dioxide BUN Creatinine Glucose POC Glucose 152 H Lactic Acid Calcium Phosphorus Magnesium AST Alkaline Phosphatase C-Reactive Protein Total Protein Albumin Uaehj-9-Jsjozcitn Hfjrh-9-Jnsdlihyb Beta Globulins Gamma Globulins PEP Interpretation Triglycerides LDL Cholesterol Direct HDL Cholesterol Urine WBC (Auto) RYLAN Screen Positive H RYLAN Titer 1:320 H Complement C3 206 H Complement C4 12/14/16 12/14/16 12/14/16 09:00 09:00 11:50 WBC RBC Hgb Hct Plt Count Lymph % (Auto) [place] % (Auto) Lymph # Seg Neutrophils % Seg Neutrophils # PT INR POC ABG pH POC ABG pCO2 POC ABG pO2 Sodium Potassium Chloride Carbon Dioxide BUN Creatinine Glucose POC Glucose 168 H Lactic Acid Calcium Phosphorus Magnesium AST Alkaline Phosphatase C-Reactive Protein Total Protein Albumin 2.6 L Xjmnd-1-Yvbefgrze 0.7 H Qtomu-1-Mmhdwrdzn 1.0 H Beta Globulins 0.7 H Gamma Globulins 0.7 L PEP Interpretation see below H Triglycerides LDL Cholesterol Direct HDL Cholesterol Urine WBC (Auto) RYLAN Screen RYLAN Titer Complement C3 Complement C4 56 H 12/14/16 12/15/16 12/15/16 17:35 04:35 04:35 WBC 4.1 L RBC 3.39 L Hgb Hct Plt Count 84 L Lymph % (Auto) 8.8 L [place] % (Auto) Lymph # 0.4 L Seg Neutrophils % 83.6 H Seg Neutrophils # PT INR POC ABG pH POC ABG pCO2 POC ABG pO2 Sodium Potassium 6.0 H Chloride Carbon Dioxide 15 L BUN 79 H Creatinine 5.0 H Glucose POC Glucose 154 H Lactic Acid Calcium 8.0 L Phosphorus 6.70 H D Magnesium AST Alkaline Phosphatase C-Reactive Protein Total Protein Albumin Dxtna-8-Myxqpdwwq Azxkk-6-Mahecgxyf Beta Globulins Gamma Globulins PEP Interpretation Triglycerides LDL Cholesterol Direct HDL Cholesterol Urine WBC (Auto) RYLAN Screen RYLAN Titer Complement C3 Complement C4 12/15/16 12/15/16 12/15/16 07:45 08:13 15:20 WBC RBC Hgb Hct Plt Count Lymph % (Auto) [place] % (Auto) Lymph # Seg Neutrophils % Seg Neutrophils # PT INR POC ABG pH 7.156 L 7.228 L POC ABG pCO2 48.7 H POC ABG pO2 232 H Sodium Potassium Chloride Carbon Dioxide BUN Creatinine Glucose POC Glucose 113 H Lactic Acid Calcium Phosphorus Magnesium AST Alkaline Phosphatase C-Reactive Protein Total Protein Albumin Qwfip-8-Ewehokghz Lufey-2-Flfcjkvdw Beta Globulins Gamma Globulins PEP Interpretation Triglycerides LDL Cholesterol Direct HDL Cholesterol Urine WBC (Auto) RYLAN Screen RYLAN Titer Complement C3 Complement C4 12/15/16 12/15/16 12/15/16 23:53 Unknown Unknown WBC RBC 3.19 L Hgb 9.6 L Hct 29.8 L Plt Count 108 L Lymph % (Auto) 6.5 L [place] % (Auto) Lymph # 0.4 L Seg Neutrophils % 87.1 H Seg Neutrophils # PT 16.2 H INR 1.31 H POC ABG pH POC ABG pCO2 POC ABG pO2 Sodium Potassium Chloride Carbon Dioxide BUN Creatinine Glucose POC Glucose 232 H Lactic Acid Calcium Phosphorus Magnesium AST Alkaline Phosphatase C-Reactive Protein Total Protein Albumin Eetmz-6-Dkldrwiwi Cftaf-2-Xduyhxqdb Beta Globulins Gamma Globulins PEP Interpretation Triglycerides LDL Cholesterol Direct HDL Cholesterol Urine WBC (Auto) RYLAN Screen RYLAN Titer Complement C3 Complement C4 12/15/16 12/16/16 12/16/16 Unknown 04:58 05:39 WBC RBC Hgb Hct Plt Count Lymph % (Auto) [place] % (Auto) Lymph # Seg Neutrophils % Seg Neutrophils # PT INR POC ABG pH POC ABG pCO2 POC ABG pO2 143 H Sodium Potassium Chloride Carbon Dioxide 16 L BUN 85 H Creatinine 4.9 H Glucose 205 H POC Glucose 201 H Lactic Acid Calcium 8.2 L Phosphorus Magnesium AST 77 H Alkaline Phosphatase 136 H C-Reactive Protein Total Protein Albumin 2.3 L Axsne-8-Txvrwcwqk Ncrym-7-Nmfsnbucq Beta Globulins Gamma Globulins PEP Interpretation Triglycerides LDL Cholesterol Direct HDL Cholesterol Urine WBC (Auto) RYLAN Screen RYLAN Titer Complement C3 Complement C4 12/16/16 12/16/16 12/16/16 06:30 06:30 06:30 WBC 4.0 L RBC 3.23 L Hgb 9.6 L Hct 29.8 L Plt Count 110 L Lymph % (Auto) 11.3 L [place] % (Auto) Lymph # 0.5 L Seg Neutrophils % 81.2 H Seg Neutrophils # PT 17.6 H INR 1.45 H POC ABG pH POC ABG pCO2 POC ABG pO2 Sodium Potassium Chloride Carbon Dioxide 20 L BUN 57 H Creatinine 3.6 H Glucose 176 H POC Glucose Lactic Acid Calcium 8.1 L Phosphorus 4.90 H D Magnesium 1.60 L AST 46 H Alkaline Phosphatase 137 H C-Reactive Protein Total Protein Albumin 2.3 L Txhks-9-Csglkoswk Uoocz-7-Tacsslpje Beta Globulins Gamma Globulins PEP Interpretation Triglycerides LDL Cholesterol Direct HDL Cholesterol Urine WBC (Auto) RYLAN Screen RYLAN Titer Complement C3 Complement C4 12/16/16 12/16/16 12/16/16 11:16 15:30 17:23 WBC RBC Hgb Hct Plt Count Lymph % (Auto) [place] % (Auto) Lymph # Seg Neutrophils % Seg Neutrophils # PT INR POC ABG pH POC ABG pCO2 POC ABG pO2 Sodium Potassium Chloride Carbon Dioxide BUN Creatinine Glucose POC Glucose 194 H 209 H Lactic Acid Calcium Phosphorus Magnesium AST 43 H Alkaline Phosphatase 156 H C-Reactive Protein Total Protein 5.6 L Albumin 2.4 L Amefl-9-Htpcowxxg Mbdks-9-Wunqgqdab Beta Globulins Gamma Globulins PEP Interpretation Triglycerides LDL Cholesterol Direct HDL Cholesterol Urine WBC (Auto) RYLAN Screen RYLAN Titer Complement C3 Complement C4 12/16/16 12/17/16 12/17/16 23:35 03:38 05:18 WBC RBC Hgb Hct Plt Count Lymph % (Auto) [place] % (Auto) Lymph # Seg Neutrophils % Seg Neutrophils # PT INR POC ABG pH 7.485 H POC ABG pCO2 POC ABG pO2 Sodium Potassium Chloride Carbon Dioxide BUN Creatinine Glucose POC Glucose 179 H 201 H Lactic Acid Calcium Phosphorus Magnesium AST Alkaline Phosphatase C-Reactive Protein Total Protein Albumin Vhyzb-4-Xvxvhshoq Qwlvv-7-Mteofbdww Beta Globulins Gamma Globulins PEP Interpretation Triglycerides LDL Cholesterol Direct HDL Cholesterol Urine WBC (Auto) RYLAN Screen RYLAN Titer Complement C3 Complement C4 12/17/16 12/17/16 12/17/16 07:24 12:00 13:58 WBC RBC 3.02 L Hgb 9.2 L Hct 27.2 L Plt Count 100 L Lymph % (Auto) [place] % (Auto) 7.9 H Lymph # 0.8 L Seg Neutrophils % 75.0 H Seg Neutrophils # PT INR POC ABG pH POC ABG pCO2 POC ABG pO2 Sodium Potassium 3.3 L Chloride Carbon Dioxide BUN 50 H Creatinine 3.1 H Glucose 181 H POC Glucose 176 H Lactic Acid Calcium Phosphorus Magnesium AST Alkaline Phosphatase 155 H C-Reactive Protein Total Protein Albumin 2.2 L Qickn-6-Cnknkeigs Zpbvf-5-Zpsgbhaft Beta Globulins Gamma Globulins PEP Interpretation Triglycerides LDL Cholesterol Direct HDL Cholesterol Urine WBC (Auto) RYLAN Screen RYLAN Titer Complement C3 Complement C4 12/17/16 12/18/16 12/18/16 17:11 00:05 05:40 WBC RBC Hgb Hct Plt Count Lymph % (Auto) [place] % (Auto) Lymph # Seg Neutrophils % Seg Neutrophils # PT INR POC ABG pH POC ABG pCO2 POC ABG pO2 Sodium Potassium Chloride Carbon Dioxide BUN Creatinine Glucose POC Glucose 152 H 155 H 170 H Lactic Acid Calcium Phosphorus Magnesium AST Alkaline Phosphatase C-Reactive Protein Total Protein Albumin Dfplq-4-Wyypxjfwf Nbkae-2-Tpjnxyses Beta Globulins Gamma Globulins PEP Interpretation Triglycerides LDL Cholesterol Direct HDL Cholesterol Urine WBC (Auto) RYLAN Screen RYLAN Titer Complement C3 Complement C4 12/18/16 12/18/16 12/18/16 07:52 12:21 15:10 WBC RBC Hgb Hct Plt Count Lymph % (Auto) [place] % (Auto) Lymph # Seg Neutrophils % Seg Neutrophils # PT INR POC ABG pH POC ABG pCO2 POC ABG pO2 Sodium Potassium 2.9 L* Chloride Carbon Dioxide BUN 69 H Creatinine 4.5 H Glucose 150 H POC Glucose 165 H 130 H Lactic Acid Calcium Phosphorus Magnesium AST Alkaline Phosphatase C-Reactive Protein Total Protein Albumin Mucmv-2-Yuduqspep Dfvkv-7-Chwmgkdyp Beta Globulins Gamma Globulins PEP Interpretation Triglycerides LDL Cholesterol Direct HDL Cholesterol Urine WBC (Auto) RYLAN Screen RYLAN Titer Complement C3 Complement C4 12/18/16 12/18/16 12/19/16 18:43 23:33 03:04 WBC RBC Hgb Hct Plt Count Lymph % (Auto) [place] % (Auto) Lymph # Seg Neutrophils % Seg Neutrophils # PT INR POC ABG pH 7.455 H POC ABG pCO2 POC ABG pO2 Sodium Potassium Chloride Carbon Dioxide BUN Creatinine Glucose POC Glucose 176 H 174 H Lactic Acid Calcium Phosphorus Magnesium AST Alkaline Phosphatase C-Reactive Protein Total Protein Albumin Zkwlg-1-Uvqzretja Gbnbq-6-Cqtkqsjrc Beta Globulins Gamma Globulins PEP Interpretation Triglycerides LDL Cholesterol Direct HDL Cholesterol Urine WBC (Auto) RYLAN Screen RYLAN Titer Complement C3 Complement C4 12/19/16 12/19/16 12/19/16 05:47 10:40 10:40 WBC RBC 3.06 L Hgb 9.2 L Hct 28.0 L Plt Count 126 L Lymph % (Auto) [place] % (Auto) Lymph # Seg Neutrophils % Seg Neutrophils # PT INR POC ABG pH POC ABG pCO2 POC ABG pO2 Sodium Potassium 3.0 L Chloride Carbon Dioxide BUN 55 H Creatinine 3.4 H Glucose 161 H POC Glucose 160 H Lactic Acid Calcium Phosphorus 5.10 H Magnesium AST Alkaline Phosphatase C-Reactive Protein Total Protein Albumin Gvjfu-1-Awxpvcqcn Cprbo-7-Zyokiqkyx Beta Globulins Gamma Globulins PEP Interpretation Triglycerides LDL Cholesterol Direct HDL Cholesterol Urine WBC (Auto) RYLAN Screen RYLAN Titer Complement C3 Complement C4 12/19/16 12/19/16 12/20/16 13:00 18:04 00:04 WBC RBC Hgb Hct Plt Count Lymph % (Auto) [place] % (Auto) Lymph # Seg Neutrophils % Seg Neutrophils # PT INR POC ABG pH POC ABG pCO2 POC ABG pO2 Sodium Potassium Chloride Carbon Dioxide BUN Creatinine Glucose POC Glucose 173 H 129 H 152 H Lactic Acid Calcium Phosphorus Magnesium AST Alkaline Phosphatase C-Reactive Protein Total Protein Albumin Yviqj-9-Zvmpuvpek Xslba-0-Wixlvybkl Beta Globulins Gamma Globulins PEP Interpretation Triglycerides LDL Cholesterol Direct HDL Cholesterol Urine WBC (Auto) RYLAN Screen RYLAN Titer Complement C3 Complement C4 12/20/16 12/20/16 12/20/16 05:34 05:45 10:47 WBC RBC Hgb Hct Plt Count Lymph % (Auto) [place] % (Auto) Lymph # Seg Neutrophils % Seg Neutrophils # PT INR POC ABG pH POC ABG pCO2 POC ABG pO2 110 H Sodium Potassium 3.4 L Chloride Carbon Dioxide BUN 72 H Creatinine 4.0 H Glucose 130 H POC Glucose 175 H Lactic Acid Calcium Phosphorus Magnesium AST Alkaline Phosphatase C-Reactive Protein Total Protein Albumin Zbheg-2-Hmtqpsrwm Mtezd-1-Aizxoctfv Beta Globulins Gamma Globulins PEP Interpretation Triglycerides LDL Cholesterol Direct HDL Cholesterol Urine WBC (Auto) RYLAN Screen RYLAN Titer Complement C3 Complement C4 12/20/16 12/20/16 12/20/16 11:56 18:14 23:43 WBC RBC Hgb Hct Plt Count Lymph % (Auto) [place] % (Auto) Lymph # Seg Neutrophils % Seg Neutrophils # PT INR POC ABG pH POC ABG pCO2 POC ABG pO2 Sodium Potassium Chloride Carbon Dioxide BUN Creatinine Glucose POC Glucose 130 H 142 H 193 H Lactic Acid Calcium Phosphorus Magnesium AST Alkaline Phosphatase C-Reactive Protein Total Protein Albumin Mragy-8-Oojzbukxf Qtrzx-3-Rvhivoeeu Beta Globulins Gamma Globulins PEP Interpretation Triglycerides LDL Cholesterol Direct HDL Cholesterol Urine WBC (Auto) RYLAN Screen RYLAN Titer Complement C3 Complement C4 12/21/16 12/21/16 12/21/16 05:10 08:32 12:29 WBC RBC Hgb Hct Plt Count Lymph % (Auto) [place] % (Auto) Lymph # Seg Neutrophils % Seg Neutrophils # PT INR POC ABG pH POC ABG pCO2 POC ABG pO2 Sodium 146 H Potassium Chloride Carbon Dioxide BUN 85 H Creatinine 4.3 H Glucose 184 H POC Glucose 204 H 214 H Lactic Acid Calcium Phosphorus Magnesium AST Alkaline Phosphatase C-Reactive Protein Total Protein Albumin Nyaci-2-Lfehvvftr Twavx-1-Tzflptkui Beta Globulins Gamma Globulins PEP Interpretation Triglycerides LDL Cholesterol Direct HDL Cholesterol Urine WBC (Auto) RYLAN Screen RYLAN Titer Complement C3 Complement C4 12/21/16 12/21/16 12/22/16 18:06 23:31 05:38 WBC RBC Hgb Hct Plt Count Lymph % (Auto) [place] % (Auto) Lymph # Seg Neutrophils % Seg Neutrophils # PT INR POC ABG pH POC ABG pCO2 POC ABG pO2 Sodium Potassium Chloride Carbon Dioxide BUN Creatinine Glucose POC Glucose 184 H 191 H 182 H Lactic Acid Calcium Phosphorus Magnesium AST Alkaline Phosphatase C-Reactive Protein Total Protein Albumin Luwtw-2-Gsypzjfch Sbnjq-3-Qkpoujtcr Beta Globulins Gamma Globulins PEP Interpretation Triglycerides LDL Cholesterol Direct HDL Cholesterol Urine WBC (Auto) RYLAN Screen RYLAN Titer Complement C3 Complement C4 12/22/16 12/22/16 12/22/16 06:30 12:23 15:07 WBC RBC Hgb Hct Plt Count Lymph % (Auto) [place] % (Auto) Lymph # Seg Neutrophils % Seg Neutrophils # PT INR POC ABG pH POC ABG pCO2 POC ABG pO2 Sodium 148 H Potassium 3.3 L Chloride Carbon Dioxide BUN 87 H Creatinine 4.4 H Glucose 186 H POC Glucose 205 H Lactic Acid Calcium Phosphorus Magnesium AST Alkaline Phosphatase C-Reactive Protein 12.10 H Total Protein Albumin Jzucd-9-Pljwsmltv Bkgmf-8-Pskydnmde Beta Globulins Gamma Globulins PEP Interpretation Triglycerides LDL Cholesterol Direct HDL Cholesterol Urine WBC (Auto) RYLNA Screen RYLAN Titer Complement C3 Complement C4 12/22/16 12/22/16 12/23/16 16:25 22:49 05:15 WBC RBC Hgb Hct Plt Count Lymph % (Auto) [place] % (Auto) Lymph # Seg Neutrophils % Seg Neutrophils # PT INR POC ABG pH POC ABG pCO2 POC ABG pO2 Sodium Potassium 3.5 L Chloride Carbon Dioxide BUN 49 H Creatinine 2.6 H Glucose 189 H POC Glucose 187 H 195 H Lactic Acid Calcium Phosphorus Magnesium AST Alkaline Phosphatase C-Reactive Protein Total Protein Albumin Cutnx-0-Elcqmejje Xvhot-9-Avqfxlmdf Beta Globulins Gamma Globulins PEP Interpretation Triglycerides LDL Cholesterol Direct HDL Cholesterol Urine WBC (Auto) RYLAN Screen RYLAN Titer Complement C3 Complement C4 12/23/16 12/23/16 12/23/16 05:15 06:00 11:54 WBC RBC 3.05 L Hgb 9.1 L Hct 27.9 L Plt Count Lymph % (Auto) [place] % (Auto) Lymph # Seg Neutrophils % 77.5 H Seg Neutrophils # 8.1 H PT INR POC ABG pH POC ABG pCO2 POC ABG pO2 187 H Sodium Potassium Chloride Carbon Dioxide BUN Creatinine Glucose POC Glucose 209 H Lactic Acid Calcium Phosphorus Magnesium AST Alkaline Phosphatase C-Reactive Protein Total Protein Albumin Sfcfv-2-Ljuuspqsv Zives-0-Jnzmmnddi Beta Globulins Gamma Globulins PEP Interpretation Triglycerides LDL Cholesterol Direct HDL Cholesterol Urine WBC (Auto) RYLAN Screen RYLAN Titer Complement C3 Complement C4 12/23/16 12:05 WBC RBC Hgb Hct Plt Count Lymph % (Auto) [place] % (Auto) Lymph # Seg Neutrophils % Seg Neutrophils # PT INR POC ABG pH POC ABG pCO2 POC ABG pO2 Sodium Potassium Chloride Carbon Dioxide BUN Creatinine Glucose POC Glucose 231 H Lactic Acid Calcium Phosphorus Magnesium AST Alkaline Phosphatase C-Reactive Protein Total Protein Albumin Bhfgq-9-Evbwggmur Ligoo-3-Dfmixnnef Beta Globulins Gamma Globulins PEP Interpretation Triglycerides LDL Cholesterol Direct HDL Cholesterol Urine WBC (Auto) RYLAN Screen RYLAN Titer Complement C3 Complement C4 Chest x-ray: report reviewed, image reviewed
[2016-12-23] MEDS: ZOCOR PO SCH (21:40)
[2016-12-23] MEDS: TYLENOL PO PRN (21:40)
[2016-12-24] MEDS: NOVOLOG SUB-Q SCH ×4 (01:30→18:44)
[2016-12-24] MEDS: HEPARIN SUB-Q SCH ×3 (05:15→22:38)
[2016-12-24 06:00] LABS: BUN/Creatinine Ratio 22.5; Calcium 9.2 mg/dL (8.4-10.2); Chloride 104.5 mmol/L (98-107)
[2016-12-24 06:06] LABS: Potassium 2.7 mmol/L (3.6-5.0)
--- NOTE | 2016-12-24 07:53 | Vascular Lab Report ---
LOWER EXTREMITY VENOUS DUPLEX: REASON FOR EXAM: Shortness of breath. COMMENTS ON THE RIGHT: All veins visualized are freely compressible without evidence of internal echogenicity. Flow is spontaneous and phasic throughout. COMMENTS ON THE LEFT: All veins visualized are freely compressible without evidence of internal echogenicity. Flow is spontaneous and phasic throughout. IMPRESSION: No evidence of acute or chronic deep venous thrombosis in either lower extremity.
--- NOTE | 2016-12-24 09:01 | Progress Note ---
Assessment and Plan Assessment and plan: 56-year-old woman with a past medical history of [id number]-[id number] diabetes , hypertension, chronic intermittent left middle toe infection presented to the hospital with right arm weakness and slurred speech. Patient also has history of frequent falls, chronic left knee pain and osteoarthritis and was planned for knee replacement. She was admitted to the hospital for stroke workup, she was found to have acute kidney injury on admission. Her kidney function continued to worsen, she was planned for CT-guided kidney biopsy on 12/15, but while she was at CT scan, she had an episode of cardiac arrest, she received CPR , unfortunately she had a very difficult airway multiple sclerosis for attempts were tried after which she had an emergency cricothyroidotomy. She most likely had prolonged period of anoxia leading to anoxic brain injury. Her mental status has not improved since then since this incidents she has been comatose. Sepsis secondary to UTI * Rocephin stopped * Fever 102 noted yesterday * started on cefepime and vancomycin * fever- repeat Blood cultures * Repeat ct chest and abdomen with po contrast. Discussed and ok with Nephrology * Klebsiella/candidada * Discussed with DR Paul Gram negative septicemia/sepsis * blood culture growing Klebsiella PNA, per ID switch to vancomycin and Cefapime * continue abx till 12/27 * ID input appreciated, abx have been changed to broaden coverage, * Acute kidney injury now ESRD and HD dependent * likely secondary to ATN, nephrology input appreciated, continue hemodialysis Toxic metabolic encephalopathy * Anoxic brain injury per MRI Type 2 diabetes * Continue sliding scale * increase basal insulin for better control Hypertension * BP acceptable, continue current management Anoxic Brain Injury/ Metabolic encephalopathy * She had an MRI of her brain on 12/12 did not show any acute changes * MRI brain shows ischemic injury in the subinsular regions, caudate nucleus, right posterior hippocampus * She most likely suffered this anoxic brain injury when she was in cardiac arrest. Acute respiratory failure, on MV greater than 96 hours * initially had emergent cricothyroidotomy on 12/15, and then sp tracheostomy on 12/18 * ON VENT DURING THE NIGHT TIME. Abdominal Distension * fup CT abdomen with PO contrast. Cardiogenic shock * Has been weaned off pressors Hypokalemia Replete judiciously, given that she has TAYA Hypomagnesemia Was replaced Hyperlipidemia Continue statin Hypothyroidism TSH within normal limits Continue Synthroid at current dose Obesity Hypoventilation/SHELIA continue vent DVT prophylaxis continue heparin Discussed with family and consultants Prognosis is poor. patient will likely SNF placement vs Hospice Placement, Her has been very resistant to hearing the poor prognosis of his . will need to organize a family meeting to discuss goals of care will recommend LTAC eval The high probability of a clinically significant, sudden or life threatening deterioration of the [pulmonary, cardiovascular, renal] system(s) required my full and direct attention, intervention and personal management. The aggregate critical care time was [35] minutes. This time is in addition to time spent performing reported procedures but includes the following: [X] Data Review and interpretation [X] Patient assessment and monitoring of vital signs [X] Documentation [X] Medication orders and management History Interval history: Patient seen and examined, remains in mild respiratory distress and not following commands. On ventilatory support overnight Hospitalist Physical - Physical exam Narrative exam: VITAL SIGNS: Reviewed. GENERAL: The patient appeared well nourished and normally developed. Vital signs as documented. HEAD: No signs of head trauma. EYES: Pupils are equal. Extraocular motions intact. EARS: Hearing grossly intact. MOUTH: Oropharynx is normal. NECK: No adenopathy, no JVD, tracheostomy site clean ON VENT CHEST: Chest with Crackles breath sounds bilaterally. CARDIAC: Regular rate and rhythm. S1 and S2, without murmurs, gallops, or rubs. VASCULAR: No Edema. Peripheral pulses normal and equal in all extremities. ABDOMEN: Soft, without detectable tenderness. DISTENDED. No rebound or guarding, and no masses palpated. Bowel Sounds HYPOACTIVE. MUSCULOSKELETAL: Good range of motion of all major joints. Extremities without clubbing, cyanosis or edema. NEUROLOGIC EXAM: Posturing. Awake but disoriented not following commands. Unable to assess strength and sensory PSYCHIATRIC: unable to assess SKIN: No rash or lesions. - Constitutional Vitals: Temp Pulse Resp BP Pulse Ox 99 F 102 H 18 160/83 99 12/24/16 03:34 12/24/16 08:25 12/24/16 06:31 12/24/16 08:25 12/24/16 08:25 General appearance: Present: obese Results - Labs CBC & Chem 7: 12/23/16 05:15 12/24/16 05:00 Labs: Laboratory Last Values WBC 10.4 K/mm3 (4.5-11.0) 12/23/16 05:15 RBC 3.05 M/mm3 (3.65-5.03) L 12/23/16 05:15 Hgb 9.1 gm/dl (10.1-14.3) L 12/23/16 05:15 Hct 27.9 % (30.3-42.9) L 12/23/16 05:15 MCV 92 fl (79-97) 12/23/16 05:15 MCH 30 pg (28-32) 12/23/16 05:15 MCHC 33 % (30-34) 12/23/16 05:15 RDW 14.2 % (13.2-15.2) 12/23/16 05:15 Plt Count 164 K/mm3 (140-440) 12/23/16 05:15 Lymph % (Auto) 16.1 % (13.4-35.0) 12/23/16 05:15 [place] % (Auto) 4.9 % (0.0-7.3) 12/23/16 05:15 Eos % (Auto) 1.2 % (0.0-4.3) 12/23/16 05:15 Baso % (Auto) 0.3 % (0.0-1.8) 12/23/16 05:15 Lymph # 1.7 K/mm3 (1.2-5.4) 12/23/16 05:15 [place] # 0.5 K/mm3 (0.0-0.8) 12/23/16 05:15 Eos # 0.1 K/mm3 (0.0-0.4) 12/23/16 05:15 Baso # 0.0 K/mm3 (0.0-0.1) 12/23/16 05:15 Seg Neutrophils % 77.5 % (40.0-70.0) H 12/23/16 05:15 Seg Neutrophils # 8.1 K/mm3 (1.8-7.7) H 12/23/16 05:15 PT 17.6 Sec. (12.2-14.9) H 12/16/16 06:30 INR 1.45 (0.87-1.13) H 12/16/16 06:30 APTT 27.6 Sec. (24.2-36.6) 12/11/16 23:50 Thrombin Time 16.6 Sec. (15.1-19.6) 12/11/16 23:50 POC ABG pH 7.433 (7.35-7.45) 12/23/16 11:54 POC ABG pCO2 39.9 (35-45) 12/23/16 11:54 POC ABG pO2 187 (80-105) H 12/23/16 11:54 POC ABG HCO3 26.7 12/23/16 11:54 POC ABG Total CO2 28 12/23/16 11:54 POC ABG O2 Sat 100 12/23/16 11:54 POC ABG Base Excess 2 12/23/16 11:54 FiO2 30 % 12/23/16 11:54 Sodium 145 mmol/L (137-145) 12/24/16 05:00 Potassium 2.7 mmol/L (3.6-5.0) L* D 12/24/16 05:00 Chloride 104.5 mmol/L (98-107) 12/24/16 05:00 Carbon Dioxide 22 mmol/L (22-30) 12/24/16 05:00 Anion Gap 21 mmol/L 12/24/16 05:00 BUN 63 mg/dL (7-17) H 12/24/16 05:00 Creatinine 2.8 mg/dL (0.7-1.2) H 12/24/16 05:00 Estimated GFR 17 ml/min 12/24/16 05:00 BUN/Creatinine Ratio 22.50 % 12/24/16 05:00 Glucose 284 mg/dL (65-100) H 12/24/16 05:00 POC Glucose 312 (70-105) H 12/24/16 05:08 Lactic Acid 1.80 mmol/L (0.7-2.0) 12/15/16 Unknown Calcium 9.2 mg/dL (8.4-10.2) 12/24/16 05:00 Phosphorus 5.10 mg/dL (2.5-4.5) H 12/19/16 10:40 Magnesium 1.80 mg/dL (1.7-2.3) 12/19/16 10:40 Total Bilirubin 0.30 mg/dL (0.1-1.2) 12/17/16 07:24 Direct Bilirubin < 0.2 mg/dL (0-0.2) 12/16/16 15:30 Indirect Bilirubin 0.0 mg/dL 12/16/16 15:30 AST 40 units/L (5-40) 12/17/16 07:24 ALT 27 units/L (7-56) 12/17/16 07:24 Alkaline Phosphatase 155 units/L (35-129) H 12/17/16 07:24 Total Creatine Kinase 73 units/L (30-135) 12/15/16 04:35 Troponin T < 0.010 ng/mL (0.00-0.029) 12/11/16 23:50 C-Reactive Protein 12.10 mg/dL (0.00-1.30) H 12/22/16 15:07 Serum Total Protein 6.1 g/dL (6.1-8.1) 12/14/16 09:00 Total Protein 6.3 g/dL (6.3-8.2) 12/17/16 07:24 Albumin 2.2 g/dL (3.9-5) L 12/17/16 07:24 Albumin/Globulin Ratio 0.5 % 12/17/16 07:24 Sscva-6-Mxtneteht 0.7 g/dL (0.2-0.3) H 12/14/16 09:00 Nesqo-2-Mszywajpv 1.0 g/dL (0.5-0.9) H 12/14/16 09:00 Beta Globulins 0.7 g/dL (0.2-0.5) H 12/14/16 09:00 Gamma Globulins 0.7 g/dL (0.8-1.7) L 12/14/16 09:00 Abnorm Protein Band 1 see below 12/14/16 09:00 PEP Interpretation see below H 12/14/16 09:00 Triglycerides 166 mg/dL (2-149) H 12/13/16 03:39 Cholesterol 66 mg/dL (50-199) 12/13/16 03:39 LDL Cholesterol Direct 24 mg/dL (50-130) L 12/13/16 03:39 HDL Cholesterol 9 mg/dL (40-59) L 12/13/16 03:39 Cholesterol/HDL Ratio 7.33 % 12/13/16 03:39 TSH 2.640 mlU/mL (0.270-4.200) 12/12/16 15:23 Urine Color Yellow (Yellow) 12/12/16 21:30 Urine Turbidity Turbid (Clear) 12/12/16 21:30 Urine pH 5.0 (5.0-7.0) 12/12/16 21:30 Ur Specific [place] 1.015 (1.003-1.030) 12/12/16 21:30 Urine Protein 100 mg/dl mg/dL (Negative) 12/12/16 21:30 Urine Glucose (UA) Neg mg/dL (Negative) 12/12/16 21:30 Urine Ketones Neg mg/dL (Negative) 12/12/16 21:30 Urine Blood Lg (Negative) 12/12/16 21:30 Urine Nitrite Neg (Negative) 12/12/16 21:30 Urine Bilirubin Neg (Negative) 12/12/16 21:30 Urine Urobilinogen < 2.0 mg/dL (<2.0) 12/12/16 21:30 Ur Leukocyte Esterase Lg (Negative) 12/12/16 21:30 Urine WBC (Auto) > 182.0 /HPF (0.0-6.0) H 12/12/16 21:30 Urine RBC (Auto) 62.0 /HPF (0.0-6.0) 12/12/16 21:30 U Epithel Cells (Auto) 7.0 /HPF (0-13.0) 12/12/16 21:30 Urine Bacteria (Auto) 4+ /HPF (Negative) 12/12/16 21:30 Urine WBC Clumps 3+ /HPF 12/12/16 21:30 Calcium Oxalate Crystal 3+ 12/12/16 21:30 Random Vancomycin 12.8 ug/mL (0-40.0) 12/24/16 05:00 Urine Opiates Screen Presumptive negative 12/12/16 21:30 Urine Methadone Screen Presumptive negative 12/12/16 21:30 Ur Barbiturates Screen Presumptive negative 12/12/16 21:30 Ur Phencyclidine Scrn Presumptive negative 12/12/16 21:30 Ur Amphetamines Screen Presumptive negative 12/12/16 21:30 U Benzodiazepines Scrn Presumptive negative 12/12/16 21:30 Urine Cocaine Screen Presumptive negative 12/12/16 21:30 U Marijuana (THC) Screen Presumptive negative 12/12/16 21:30 Drugs of Abuse Note Disclamer 12/12/16 21:30 RYLAN Screen Positive (Negative) H 12/14/16 09:00 RYLAN Titer 1:320 (Negative) H 12/14/16 09:00 RYLAN Pattern Homogeneous 12/14/16 09:00 Proteinase 3 (PR3) Ab <1.0 AI (<1.0) 12/14/16 09:00 Myeloperoxidase Ab <1.0 AI (<1.0) 12/14/16 09:00 Glomerular Base Mem IgG <1.0 AI (<1.0) 12/14/16 09:00 Complement C3 206 mg/dL (90-180) H 12/14/16 09:00 Complement C4 56 mg/dL (16-47) H 12/14/16 09:00 Hepatitis A IgM Ab Non-reactive (NonReactive) 12/18/16 18:30 Hep Bs Antigen Non-reactive (Negative) 12/18/16 18:30 Hep B Core IgM Ab Non-reactive (NonReactive) 12/18/16 18:30 Hepatitis C Antibody Non-reactive (NonReactive) 12/18/16 18:30 Renal Biopsy Scanned into [facility] rec 12/15/16 13:43 - Imaging and Cardiology CT scan - abdomen: pending
--- NOTE | 2016-12-24 09:35 | Progress Note ---
Assessment and Plan - Patient Problems (1) Acute kidney failure with tubular necrosis Current Visit: Yes Status: Acute Plan to address problem: Pt rising BUN/Cr inbetween HD, however increased urine output noted >1.8L/24h. will hold HD and continue to monitor for signs of renal recovery. increase free water flushes via NGT to 200cc q4hr (2) Sepsis due to urinary tract infection Current Visit: Yes Status: Acute Plan to address problem: Continue antibiotics and follow (3) Type 2 diabetes mellitus Current Visit: Yes Status: Chronic Qualifiers: Diabetes mellitus complication status: D Diabetes mellitus complication detail: D Diabetic retinopathy severity: D Proliferative retinopathy type: P Diabetes mellitus macular edema: D Diabetes mellitus risk prevention engineer insulin use : D Laterality: L Chronic kidney disease stage: C Plan to address problem: Blood sugar control by primary attending (4) Hypertension Current Visit: Yes Status: Chronic Qualifiers: Hypertension type: H Plan to address problem: Blood pressure improved on low-dose beta ariana and hydralazine prn, with parameters to hold (5) Anoxic encephalopathy Current Visit: Yes Status: Acute Plan to address problem: Continue management by neurologist. [place] for improvement in neurologic status (6) Hypokalemia Current Visit: Yes Status: Acute Plan to address problem: K supplementation with IV KCl 20meq x 2 bags, 40meq KCl via NGT. Subjective Date of service: 12/24/16 Principal diagnosis: Coma Interval history: pt remains comatose, not interactive Objective - Vital Signs Vital signs: Vital Signs - 12hr 12/23/16 12/23/16 12/23/16 21:40 22:00 22:29 Temperature Pulse Rate 104 H 108 H 106 H Pulse Rate [ From Monitor] Respiratory 19 22 Rate Blood Pressure 152/82 150/87 150/87 O2 Sat by Pulse 98 98 Oximetry 12/23/16 12/23/16 12/23/16 22:30 23:00 23:18 Temperature 99.2 F Pulse Rate 105 H 100 H Pulse Rate [ From Monitor] Respiratory 21 19 Rate Blood Pressure 150/87 134/76 O2 Sat by Pulse 98 98 Oximetry 12/23/16 12/24/16 12/24/16 23:31 00:00 00:02 Temperature Pulse Rate 104 H 103 H 104 H Pulse Rate [ 104 H From Monitor] Respiratory 20 9 L Rate Blood Pressure 150/87 157/93 157/93 O2 Sat by Pulse 98 96 98 Oximetry 12/24/16 12/24/16 12/24/16 00:31 01:00 01:31 Temperature Pulse Rate 106 H 102 H 104 H Pulse Rate [ From Monitor] Respiratory 14 18 19 Rate Blood Pressure 157/93 159/82 159/82 O2 Sat by Pulse 98 97 98 Oximetry 12/24/16 12/24/16 12/24/16 02:00 02:31 03:01 Temperature Pulse Rate 106 H 103 H 103 H Pulse Rate [ From Monitor] Respiratory 22 20 13 Rate Blood Pressure 164/89 164/89 164/89 O2 Sat by Pulse 98 96 99 Oximetry 12/24/16 12/24/16 12/24/16 03:31 03:34 04:00 Temperature 99 F Pulse Rate 99 H 99 H Pulse Rate [ 97 H From Monitor] Respiratory 16 22 Rate Blood Pressure 144/93 170/103 O2 Sat by Pulse 98 97 Oximetry 12/24/16 12/24/16 12/24/16 04:19 04:30 05:00 Temperature Pulse Rate 100 H 97 H 98 H Pulse Rate [ From Monitor] Respiratory 20 18 Rate Blood Pressure 170/103 170/103 155/100 O2 Sat by Pulse 98 98 Oximetry 12/24/16 12/24/16 12/24/16 05:31 06:00 06:31 Temperature Pulse Rate 97 H 96 H 92 H Pulse Rate [ From Monitor] Respiratory 20 18 18 Rate Blood Pressure 155/100 142/87 142/87 O2 Sat by Pulse 99 98 99 Oximetry 12/24/16 12/24/16 08:00 08:25 Temperature 98.9 F Pulse Rate 102 H Pulse Rate [ From Monitor] Respiratory Rate Blood Pressure 160/83 O2 Sat by Pulse 99 Oximetry - General Appearance General appearance: well-developed, well-nourished, comatose EENT: ATNC, PERRL, mucous membranes moist Neck: no JVD Respiratory: Present: Clear to Ascultation Cardiology: regular, S1S2 Gastrointestinal: normoactive bowel sounds Integumentary: no rash, other (no pitting edema ) Neurologic: other (comatose ) - Lab 12/23/16 05:15 12/24/16 05:00 Most recent lab results Calcium 9.2 mg/dL (8.4-10.2) 12/24/16 05:00 Phosphorus 5.10 mg/dL (2.5-4.5) H 12/19/16 10:40 Magnesium 1.80 mg/dL (1.7-2.3) 12/19/16 10:40
[2016-12-24] MEDS: COREG PO SCH ×2 (09:36→22:37)
[2016-12-24] MEDS: PEPCID PO SCH (09:36)
[2016-12-24] MEDS: ASPIRIN PO SCH (09:36)
[2016-12-24] MEDS: MAXIPIME/NS 1 GM/100 ML 1 GM/100 ML BAG IV SCH (09:37)
[2016-12-24] MEDS: LEVEMIR SUB-Q SCH (09:38)
[2016-12-24] MEDS ORDERED: POTASSIUM CHLORIDE FEEDTUBE ONE (10:00)
[2016-12-24] MEDS ORDERED: KCL 10MEQ/100ML 10 MEQ/100 ML BAG IV SCH (10:00)
[2016-12-24] MEDS ORDERED: VANCOMYCIN/NS 1 GM/250 ML 1 GM/250 ML BAG IV ONE (10:00)
--- NOTE | 2016-12-24 10:04 | Progress Note ---
Assessment and Plan Assessment: 1) Sepsis: still high fever. Initial etiology most likely UTI/bacteremia. However, noted persistent fever despite appropriate IV antibiotic coverage ? VAP ? GI ? lupus flare ? central -repeat blood cx negative -LE US negative for DVT -CRP=12 2) Complicated UTI: Secondary to Klebsiella. renal US normal. repeat urine cx + Lyndsay-likely a colonizer 3) Klebsiella bacteremia: from UTI. Repeat blood cx 9/2 negative 4) ?Lupus flare 5) Respiratory failure 6) Encephalopathy ? anoxic ? metabolic 7) Abdominal distention 8) TAYA-worsening Plan: -KUB or CT abd/pelvis to eval abdominal distention -check LFTs -f/u respiratory cultures -f/u procalcitonin -continue cefepime and vancomycin renally dosed Thank you Dr Espinosa for your consultation, will follow up with you. Leta Xavier MD Infectious Diseases Specialist [facility] ([facility]) M [phone] O [phone] Subjective Date of service: 12/24/16 Principal diagnosis: Coma Interval history: Still fever at 102.5 on the vent via trach, currently on T-piece . Current Antimicrobials: vanco 12/22 cefepime 12/22 Previous Antimicrobials: ceftriaxone 12/16 Microbiology: Blood cultures: 12/12 Klebsiella 9/2 neg Urine cultures: 12/13 Klebsiella 12/21 Lyndsay Respiratory cultures: 12/15 Lyndsay 12/22 pending Wound cultures: Stool cultures: Other: Objective - Exam Narrative Exam: General appearance: more alert on the vent via trach on t-piece Eyes: anicteric sclerae, moist conjunctivae; PERRLA HENT: Atraumatic; oropharynx limited Neck: Trach Lungs: suzan rhonchi CV: RRR, no murmurs Abdomen: Soft, distended, tense Extremities: + edema, no extremity lymphadenopathy Skin: Normal temperature, turgor and texture; no rash, ulcers or subcutaneous nodules Psych: alert Neuro: alert, upper extremities contracted Lines: - Constitutional Vitals: Vital Signs Temp Pulse Resp BP Pulse Ox 98.9 F 102 H 18 160/83 96 12/24/16 08:00 12/24/16 08:25 12/24/16 06:31 12/24/16 08:25 12/24/16 09:43 Temperature -Last 24 Hours Temperature 98.9 F Temperature 99 F Temperature 99.2 F Temperature 102.5 F Temperature 98.8 F Temperature 99.9 F - Labs CBC & Chem 7: 12/23/16 05:15 12/24/16 05:00 Labs: Abnormal lab results 12/23/16 12/23/16 12/23/16 Range/Units 11:54 12:05 17:31 POC ABG pO2 187 H (80-105) Potassium (3.6-5.0) mmol/L BUN (7-17) mg/dL Creatinine (0.7-1.2) mg/dL Glucose (65-100) mg/dL POC Glucose 231 H 233 H (70-105) 12/23/16 12/24/16 12/24/16 Range/Units 23:41 05:00 05:08 POC ABG pO2 (80-105) Potassium 2.7 L* D (3.6-5.0) mmol/L BUN 63 H (7-17) mg/dL Creatinine 2.8 H (0.7-1.2) mg/dL Glucose 284 H (65-100) mg/dL POC Glucose 283 H 312 H (70-105)
[2016-12-24] MEDS: KCL 20MEQ/100ML 20 MEQ/100 ML BAG IV SCH ×2 (10:51→11:53)
--- NOTE | 2016-12-24 11:09 | XRay Report ---
SUPINE KUB: History: Small bowel obstruction Compared to the CT abdomen pelvis dated 12/19/16. There is a large amount of gas-filled loops throughout the abdomen. This appears to be within the colon. No convincing small bowel dilatation is appreciated. A nasogastric tube overlies the distal stomach. No large free air is appreciated on supine view. IMPRESSION: Large amount of gas throughout the length of the colon. Consider an ileus.
[2016-12-24] MEDS: TYLENOL PO PRN (12:18)
--- NOTE | 2016-12-24 14:40 | Progress Note ---
Assessment and Plan Imp: 1. UTI/bacteremia/sepsis 2. TAYA -> ATN 3. S/p CP arrest 4. Anoxic encephalopathy 5. S/p Trach 6. Morbid obesity 7. Acute respiratory failure, hypoxia 8. ? Ileus Rec: 1. F/u repeat cultures; ABX as per ID 2. T-piece trials daily; rest on ACVC at night although may be able to do 24/7 Tpiece soon 3[address] For CT a/p; will need PEG at some point 4. Holding all sedation; neurology f/u 5. DVT PPx 6. Guarded prognosis; agree w/ LTAC 7. Complex decision-making/patient Plan of care reviewed w/ , he understands/agrees Subjective Date of service: 12/24/16 Principal diagnosis: Coma Interval history: No events. Tolerating Tpiece. Opens eyes minimally, not following commands or answering questions. TFs on hold due to abd distension although no residuals and + BMs. Active Medications Acetaminophen (Tylenol) 650 mg PO Q4H PRN PRN Reason: Pain, Mild (1-3) Last Admin: 12/24/16 12:18 Dose: 650 mg Albumin Human (Alburx 25% (Albumin)) 12.5 gm IV DIPESH PRN PRN Reason: Hypotension Lipase/Protease/Amylase (Pancreaze Dr 10,500 Unit) 1 each FEEDTUBE PRN PRN PRN Reason: For Clogged Feeding Tube Artificial Tears (Isopto Tears 0.5%) 2 drops OU Q4H PRN PRN Reason: Dry Eye(s) Last Admin: 12/16/16 05:25 Dose: 2 drops Aspirin (Aspirin) 325 mg PO QDAY [facility] Last Admin: 12/24/16 09:36 Dose: 325 mg Bisacodyl (Dulcolax) 10 mg DC QDAY PRN PRN Reason: Constipation Carvedilol (Coreg) 3.125 mg PO BID [facility] Last Admin: 12/24/16 09:36 Dose: 3.125 mg Dextrose (D50w (25gm)) 50 ml IV PRN PRN PRN Reason: Hypoglycemia Last Admin: 12/15/16 10:25 Dose: 50 ml Famotidine (Pepcid) 20 mg PO DAILY [facility] Last Admin: 12/24/16 09:36 Dose: 20 mg Heparin Sodium (Porcine) (Heparin) 5,000 unit SUB-Q Q8HR [facility] Last Admin: 12/24/16 05:15 Dose: 5,000 unit Heparin Sodium (Porcine) (Heparin) 5,000 unit IV DIPESH PRN PRN Reason: dwell Last Admin: 12/22/16 17:54 Dose: 5,000 unit Hydralazine HCl (Apresoline) 5 mg IV Q6H PRN PRN Reason: Keep SBP between 160-185 mm Hg Sodium Chloride (Nacl 0.9%) 100 mls @ 999 mls/hr IV DIPESH PRN PRN Reason: Hypotension Sodium Chloride (Nacl 0.9%) 100 mls @ 999 mls/hr IV DIPESH PRN PRN Reason: Hypotension Cefepime HCl (Maxipime/Ns 1 Gm/100 Ml) 1 gm in 100 mls @ 200 mls/hr IV Q24HR [facility] PRN Reason: Protocol Last Admin: 12/24/16 09:37 Dose: 200 mls/hr Fluconazole (Diflucan) 200 mg in 100 mls @ 100 mls/hr IV Q24HR [facility] Insulin Aspart (Novolog) 0 units SUB-Q Q6HR [facility] PRN Reason: Protocol Last Admin: 12/24/16 12:18 Dose: 4 units Insulin Detemir (Levemir) 12 units SUB-Q DAILY [facility] Last Admin: 12/24/16 09:38 Dose: 12 units Magnesium Hydroxide (Milk Of Magnesia) 30 ml PO Q4H PRN PRN Reason: Constipation Ondansetron HCl (Zofran) 4 mg IV Q8H PRN PRN Reason: N/V unrelieved by Reglan Simple Syrup (Simple Syrup) 15 ml FEEDTUBE PRN PRN PRN Reason: Hypoglycemia Simple Syrup (Simple Syrup) 30 ml FEEDTUBE PRN PRN PRN Reason: Hypoglycemia Simvastatin (Zocor) 20 mg PO QHS [facility] Last Admin: 12/23/16 21:40 Dose: 20 mg Sodium Bicarbonate (Sodium Bicarbonate) 325 mg FEEDTUBE PRN PRN PRN Reason: For Clogged Feeding Tube Sodium Chloride (Sodium Chloride Flush Syringe 10 Ml) 10 ml IV PRN PRN PRN Reason: LINE FLUSH Vancomycin HCl (Vancomycin Pharmacy To Dose) 1 each IV PKCONSULT [facility] Objective Vital Signs - 12hr 12/24/16 12/24/16 12/24/16 03:01 03:31 03:34 Temperature 99 F Pulse Rate 103 H 99 H Pulse Rate [ From Monitor] Respiratory 13 16 Rate Blood Pressure 164/89 144/93 O2 Sat by Pulse 99 98 Oximetry O2 Sat by Pulse Oximetry [ Assessment] 12/24/16 12/24/16 12/24/16 04:00 04:19 04:30 Temperature Pulse Rate 99 H 100 H 97 H Pulse Rate [ 97 H From Monitor] Respiratory 22 20 Rate Blood Pressure 170/103 170/103 170/103 O2 Sat by Pulse 97 98 Oximetry O2 Sat by Pulse Oximetry [ Assessment] 12/24/16 12/24/16 12/24/16 05:00 05:31 06:00 Temperature Pulse Rate 98 H 97 H 96 H Pulse Rate [ From Monitor] Respiratory 18 20 18 Rate Blood Pressure 155/100 155/100 142/87 O2 Sat by Pulse 98 99 98 Oximetry O2 Sat by Pulse Oximetry [ Assessment] 12/24/16 12/24/16 12/24/16 06:31 07:01 07:31 Temperature Pulse Rate 92 H 97 H 98 H Pulse Rate [ From Monitor] Respiratory 18 18 16 Rate Blood Pressure 142/87 142/87 142/87 O2 Sat by Pulse 99 99 99 Oximetry O2 Sat by Pulse Oximetry [ Assessment] 12/24/16 12/24/16 12/24/16 08:00 08:01 08:25 Temperature 98.9 F Pulse Rate 100 H 102 H Pulse Rate [ From Monitor] Respiratory 15 Rate Blood Pressure 142/87 160/83 O2 Sat by Pulse 98 99 Oximetry O2 Sat by Pulse Oximetry [ Assessment] 12/24/16 12/24/16 12/24/16 08:31 09:00 09:31 Temperature Pulse Rate 101 H 100 H 98 H Pulse Rate [ From Monitor] Respiratory 18 20 20 Rate Blood Pressure 160/83 142/80 142/80 O2 Sat by Pulse 99 97 99 Oximetry O2 Sat by Pulse Oximetry [ Assessment] 12/24/16 12/24/16 12/24/16 09:43 10:01 10:07 Temperature Pulse Rate 109 H Pulse Rate [ From Monitor] Respiratory 18 Rate Blood Pressure 127/74 O2 Sat by Pulse 96 92 Oximetry O2 Sat by Pulse 97 Oximetry [ Assessment] 12/24/16 12/24/16 12/24/16 10:31 11:00 11:31 Temperature Pulse Rate 102 H 103 H 103 H Pulse Rate [ From Monitor] Respiratory 25 H 18 17 Rate Blood Pressure 127/74 151/92 151/92 O2 Sat by Pulse 98 99 98 Oximetry O2 Sat by Pulse Oximetry [ Assessment] 12/24/16 12/24/16 12:00 14:29 Temperature 100.6 F H Pulse Rate Pulse Rate [ From Monitor] Respiratory Rate Blood Pressure O2 Sat by Pulse 98 100 Oximetry O2 Sat by Pulse Oximetry [ Assessment] Constitutional: other (eyes open, nothing purposeful) Eyes: non-icteric ENT: oropharynx moist, other (trach midline) Neck: supple, other (large in circumference) Effort: normal Ascultation: Bilateral: clear Cardiovascular: regular rate and rhythm (no mrg) Gastrointestinal: normoactive bowel sounds, non-distended, other (obese) Integumentary: normal Extremities: no cyanosis, no edema, pink and warm Neurologic: other (flaccid extremities, not following commands) Psychiatric: other (not able to assess) CBC and BMP: 12/23/16 05:15 12/24/16 05:00 ABG, PT/INR, D-dimer: ABG POC ABG pH 7.433 (7.35-7.45) 12/23/16 11:54 POC ABG pCO2 39.9 (35-45) 12/23/16 11:54 POC ABG pO2 187 (80-105) H 12/23/16 11:54 POC ABG HCO3 26.7 12/23/16 11:54 POC ABG Total CO2 28 12/23/16 11:54 POC ABG O2 Sat 100 12/23/16 11:54 PT/INR, D-dimer PT 17.6 Sec. (12.2-14.9) H 12/16/16 06:30 INR 1.45 (0.87-1.13) H 12/16/16 06:30 Abnormal lab findings: Abnormal Labs 12/12/16 12/12/16 12/12/16 08:06 12:27 15:23 WBC RBC Hgb Hct Plt Count Lymph % (Auto) [place] % (Auto) Lymph # Seg Neutrophils % Seg Neutrophils # PT INR POC ABG pH POC ABG pCO2 POC ABG pO2 Sodium Potassium Chloride Carbon Dioxide BUN Creatinine Glucose POC Glucose 299 H 281 H Lactic Acid 4.20 H* Calcium Phosphorus Magnesium AST Alkaline Phosphatase C-Reactive Protein Total Protein Albumin Dliir-0-Dqzpjxxaz Dxvhv-5-Jjgespxyz Beta Globulins Gamma Globulins PEP Interpretation Triglycerides LDL Cholesterol Direct HDL Cholesterol Urine WBC (Auto) RYLAN Screen RYLAN Titer Complement C3 Complement C4 12/12/16 12/12/16 12/12/16 16:53 19:51 20:43 WBC RBC Hgb Hct Plt Count Lymph % (Auto) [place] % (Auto) Lymph # Seg Neutrophils % Seg Neutrophils # PT INR POC ABG pH POC ABG pCO2 POC ABG pO2 Sodium Potassium Chloride Carbon Dioxide BUN Creatinine Glucose POC Glucose 272 H 238 H Lactic Acid 2.90 H* Calcium Phosphorus Magnesium AST Alkaline Phosphatase C-Reactive Protein Total Protein Albumin Ebyvt-5-Ncppydykk Ogkrq-2-Fulhodsrs Beta Globulins Gamma Globulins PEP Interpretation Triglycerides LDL Cholesterol Direct HDL Cholesterol Urine WBC (Auto) RYLAN Screen RYLAN Titer Complement C3 Complement C4 12/12/16 12/13/16 12/13/16 21:30 03:39 03:39 WBC RBC Hgb Hct Plt Count 118 L Lymph % (Auto) 7.4 L [place] % (Auto) 7.6 H Lymph # 0.7 L Seg Neutrophils % 84.7 H Seg Neutrophils # 8.4 H PT INR POC ABG pH POC ABG pCO2 POC ABG pO2 Sodium 133 L Potassium Chloride 96.5 L Carbon Dioxide 18 L BUN 49 H Creatinine 3.1 H D Glucose 173 H POC Glucose Lactic Acid Calcium 8.3 L D Phosphorus Magnesium 1.20 L AST Alkaline Phosphatase C-Reactive Protein Total Protein Albumin 2.6 L Jpmor-2-Zvftdpcbh Wihmf-3-Iwpwsuews Beta Globulins Gamma Globulins PEP Interpretation Triglycerides 166 H LDL Cholesterol Direct 24 L HDL Cholesterol 9 L Urine WBC (Auto) > 182.0 H RYLAN Screen RYLAN Titer Complement C3 Complement C4 12/13/16 12/13/16 12/13/16 07:41 11:53 17:23 WBC RBC Hgb Hct Plt Count Lymph % (Auto) [place] % (Auto) Lymph # Seg Neutrophils % Seg Neutrophils # PT INR POC ABG pH POC ABG pCO2 POC ABG pO2 Sodium Potassium Chloride Carbon Dioxide BUN Creatinine Glucose POC Glucose 222 H 221 H 247 H Lactic Acid Calcium Phosphorus Magnesium AST Alkaline Phosphatase C-Reactive Protein Total Protein Albumin Xzaam-7-Zbvqqwtmc Oldaw-1-Qcbuiwkbv Beta Globulins Gamma Globulins PEP Interpretation Triglycerides LDL Cholesterol Direct HDL Cholesterol Urine WBC (Auto) RYLAN Screen RYLAN Titer Complement C3 Complement C4 12/13/16 12/14/16 12/14/16 21:29 03:35 03:35 WBC RBC 3.42 L Hgb Hct Plt Count 86 L Lymph % (Auto) 6.1 L [place] % (Auto) Lymph # 0.3 L Seg Neutrophils % 87.3 H Seg Neutrophils # PT INR POC ABG pH POC ABG pCO2 POC ABG pO2 Sodium 133 L Potassium 5.1 H Chloride 96.2 L Carbon Dioxide 17 L BUN 63 H Creatinine 4.2 H Glucose 136 H POC Glucose 185 H Lactic Acid Calcium 8.1 L Phosphorus Magnesium 1.30 L AST Alkaline Phosphatase C-Reactive Protein Total Protein Albumin Upfjr-8-Buoxkisme Upmnh-7-Onwkuycct Beta Globulins Gamma Globulins PEP Interpretation Triglycerides LDL Cholesterol Direct HDL Cholesterol Urine WBC (Auto) RYLAN Screen RYLAN Titer Complement C3 Complement C4 12/14/16 12/14/16 12/14/16 08:32 09:00 09:00 WBC RBC Hgb Hct Plt Count Lymph % (Auto) [place] % (Auto) Lymph # Seg Neutrophils % Seg Neutrophils # PT INR POC ABG pH POC ABG pCO2 POC ABG pO2 Sodium Potassium Chloride Carbon Dioxide BUN Creatinine Glucose POC Glucose 152 H Lactic Acid Calcium Phosphorus Magnesium AST Alkaline Phosphatase C-Reactive Protein Total Protein Albumin Crkou-8-Ixqwuyure Wlagb-7-Lhogxvilx Beta Globulins Gamma Globulins PEP Interpretation Triglycerides LDL Cholesterol Direct HDL Cholesterol Urine WBC (Auto) RYLAN Screen Positive H RYLAN Titer 1:320 H Complement C3 206 H Complement C4 12/14/16 12/14/16 12/14/16 09:00 09:00 11:50 WBC RBC Hgb Hct Plt Count Lymph % (Auto) [place] % (Auto) Lymph # Seg Neutrophils % Seg Neutrophils # PT INR POC ABG pH POC ABG pCO2 POC ABG pO2 Sodium Potassium Chloride Carbon Dioxide BUN Creatinine Glucose POC Glucose 168 H Lactic Acid Calcium Phosphorus Magnesium AST Alkaline Phosphatase C-Reactive Protein Total Protein Albumin 2.6 L Zxriq-1-Ahkwdhxlo 0.7 H Wgqsv-9-Itrcxjytd 1.0 H Beta Globulins 0.7 H Gamma Globulins 0.7 L PEP Interpretation see below H Triglycerides LDL Cholesterol Direct HDL Cholesterol Urine WBC (Auto) RYLAN Screen RYLAN Titer Complement C3 Complement C4 56 H 12/14/16 12/15/16 12/15/16 17:35 04:35 04:35 WBC 4.1 L RBC 3.39 L Hgb Hct Plt Count 84 L Lymph % (Auto) 8.8 L [place] % (Auto) Lymph # 0.4 L Seg Neutrophils % 83.6 H Seg Neutrophils # PT INR POC ABG pH POC ABG pCO2 POC ABG pO2 Sodium Potassium 6.0 H Chloride Carbon Dioxide 15 L BUN 79 H Creatinine 5.0 H Glucose POC Glucose 154 H Lactic Acid Calcium 8.0 L Phosphorus 6.70 H D Magnesium AST Alkaline Phosphatase C-Reactive Protein Total Protein Albumin Wkjcy-3-Npbkhbzci Aqglx-3-Xavagnogu Beta Globulins Gamma Globulins PEP Interpretation Triglycerides LDL Cholesterol Direct HDL Cholesterol Urine WBC (Auto) RYLAN Screen RYLAN Titer Complement C3 Complement C4 12/15/16 12/15/16 12/15/16 07:45 08:13 15:20 WBC RBC Hgb Hct Plt Count Lymph % (Auto) [place] % (Auto) Lymph # Seg Neutrophils % Seg Neutrophils # PT INR POC ABG pH 7.156 L 7.228 L POC ABG pCO2 48.7 H POC ABG pO2 232 H Sodium Potassium Chloride Carbon Dioxide BUN Creatinine Glucose POC Glucose 113 H Lactic Acid Calcium Phosphorus Magnesium AST Alkaline Phosphatase C-Reactive Protein Total Protein Albumin Gvvih-0-Hykrinicj Bjkji-8-Tlwaxudkn Beta Globulins Gamma Globulins PEP Interpretation Triglycerides LDL Cholesterol Direct HDL Cholesterol Urine WBC (Auto) RYLAN Screen RYLAN Titer Complement C3 Complement C4 12/15/16 12/15/16 12/15/16 23:53 Unknown Unknown WBC RBC 3.19 L Hgb 9.6 L Hct 29.8 L Plt Count 108 L Lymph % (Auto) 6.5 L [place] % (Auto) Lymph # 0.4 L Seg Neutrophils % 87.1 H Seg Neutrophils # PT 16.2 H INR 1.31 H POC ABG pH POC ABG pCO2 POC ABG pO2 Sodium Potassium Chloride Carbon Dioxide BUN Creatinine Glucose POC Glucose 232 H Lactic Acid Calcium Phosphorus Magnesium AST Alkaline Phosphatase C-Reactive Protein Total Protein Albumin Rsmle-6-Trgthkmzn Lofoo-4-Vllhubhex Beta Globulins Gamma Globulins PEP Interpretation Triglycerides LDL Cholesterol Direct HDL Cholesterol Urine WBC (Auto) RYLAN Screen RYLAN Titer Complement C3 Complement C4 12/15/16 12/16/16 12/16/16 Unknown 04:58 05:39 WBC RBC Hgb Hct Plt Count Lymph % (Auto) [place] % (Auto) Lymph # Seg Neutrophils % Seg Neutrophils # PT INR POC ABG pH POC ABG pCO2 POC ABG pO2 143 H Sodium Potassium Chloride Carbon Dioxide 16 L BUN 85 H Creatinine 4.9 H Glucose 205 H POC Glucose 201 H Lactic Acid Calcium 8.2 L Phosphorus Magnesium AST 77 H Alkaline Phosphatase 136 H C-Reactive Protein Total Protein Albumin 2.3 L Moolp-9-Xjonuabfh Qrqjx-3-Dpuigoxgo Beta Globulins Gamma Globulins PEP Interpretation Triglycerides LDL Cholesterol Direct HDL Cholesterol Urine WBC (Auto) RYLAN Screen RYLAN Titer Complement C3 Complement C4 12/16/16 12/16/16 12/16/16 06:30 06:30 06:30 WBC 4.0 L RBC 3.23 L Hgb 9.6 L Hct 29.8 L Plt Count 110 L Lymph % (Auto) 11.3 L [place] % (Auto) Lymph # 0.5 L Seg Neutrophils % 81.2 H Seg Neutrophils # PT 17.6 H INR 1.45 H POC ABG pH POC ABG pCO2 POC ABG pO2 Sodium Potassium Chloride Carbon Dioxide 20 L BUN 57 H Creatinine 3.6 H Glucose 176 H POC Glucose Lactic Acid Calcium 8.1 L Phosphorus 4.90 H D Magnesium 1.60 L AST 46 H Alkaline Phosphatase 137 H C-Reactive Protein Total Protein Albumin 2.3 L Krhrk-6-Qqgpfhvxd Juryw-7-Tqpvajiaj Beta Globulins Gamma Globulins PEP Interpretation Triglycerides LDL Cholesterol Direct HDL Cholesterol Urine WBC (Auto) RYLAN Screen RYLAN Titer Complement C3 Complement C4 12/16/16 12/16/16 12/16/16 11:16 15:30 17:23 WBC RBC Hgb Hct Plt Count Lymph % (Auto) [place] % (Auto) Lymph # Seg Neutrophils % Seg Neutrophils # PT INR POC ABG pH POC ABG pCO2 POC ABG pO2 Sodium Potassium Chloride Carbon Dioxide BUN Creatinine Glucose POC Glucose 194 H 209 H Lactic Acid Calcium Phosphorus Magnesium AST 43 H Alkaline Phosphatase 156 H C-Reactive Protein Total Protein 5.6 L Albumin 2.4 L Eojhe-5-Winbscbml Mxsly-8-Ibtdaisfg Beta Globulins Gamma Globulins PEP Interpretation Triglycerides LDL Cholesterol Direct HDL Cholesterol Urine WBC (Auto) RYLAN Screen RYLAN Titer Complement C3 Complement C4 12/16/16 12/17/16 12/17/16 23:35 03:38 05:18 WBC RBC Hgb Hct Plt Count Lymph % (Auto) [place] % (Auto) Lymph # Seg Neutrophils % Seg Neutrophils # PT INR POC ABG pH 7.485 H POC ABG pCO2 POC ABG pO2 Sodium Potassium Chloride Carbon Dioxide BUN Creatinine Glucose POC Glucose 179 H 201 H Lactic Acid Calcium Phosphorus Magnesium AST Alkaline Phosphatase C-Reactive Protein Total Protein Albumin Jxyoy-6-Yfoafvcsc Izcct-6-Kgwbearuf Beta Globulins Gamma Globulins PEP Interpretation Triglycerides LDL Cholesterol Direct HDL Cholesterol Urine WBC (Auto) RYLAN Screen RYLAN Titer Complement C3 Complement C4 12/17/16 12/17/16 12/17/16 07:24 12:00 13:58 WBC RBC 3.02 L Hgb 9.2 L Hct 27.2 L Plt Count 100 L Lymph % (Auto) [place] % (Auto) 7.9 H Lymph # 0.8 L Seg Neutrophils % 75.0 H Seg Neutrophils # PT INR POC ABG pH POC ABG pCO2 POC ABG pO2 Sodium Potassium 3.3 L Chloride Carbon Dioxide BUN 50 H Creatinine 3.1 H Glucose 181 H POC Glucose 176 H Lactic Acid Calcium Phosphorus Magnesium AST Alkaline Phosphatase 155 H C-Reactive Protein Total Protein Albumin 2.2 L Pjlsd-8-Eracuafjc Xzfqb-7-Kjshktvdi Beta Globulins Gamma Globulins PEP Interpretation Triglycerides LDL Cholesterol Direct HDL Cholesterol Urine WBC (Auto) RYLAN Screen RYLAN Titer Complement C3 Complement C4 12/17/16 12/18/16 12/18/16 17:11 00:05 05:40 WBC RBC Hgb Hct Plt Count Lymph % (Auto) [place] % (Auto) Lymph # Seg Neutrophils % Seg Neutrophils # PT INR POC ABG pH POC ABG pCO2 POC ABG pO2 Sodium Potassium Chloride Carbon Dioxide BUN Creatinine Glucose POC Glucose 152 H 155 H 170 H Lactic Acid Calcium Phosphorus Magnesium AST Alkaline Phosphatase C-Reactive Protein Total Protein Albumin Afvxr-0-Edcanoorz Rweix-8-Govgqlitw Beta Globulins Gamma Globulins PEP Interpretation Triglycerides LDL Cholesterol Direct HDL Cholesterol Urine WBC (Auto) RYLAN Screen RYLAN Titer Complement C3 Complement C4 12/18/16 12/18/16 12/18/16 07:52 12:21 15:10 WBC RBC Hgb Hct Plt Count Lymph % (Auto) [place] % (Auto) Lymph # Seg Neutrophils % Seg Neutrophils # PT INR POC ABG pH POC ABG pCO2 POC ABG pO2 Sodium Potassium 2.9 L* Chloride Carbon Dioxide BUN 69 H Creatinine 4.5 H Glucose 150 H POC Glucose 165 H 130 H Lactic Acid Calcium Phosphorus Magnesium AST Alkaline Phosphatase C-Reactive Protein Total Protein Albumin Iomvv-1-Okhcabdeb Neaqs-8-Zgcojhmbt Beta Globulins Gamma Globulins PEP Interpretation Triglycerides LDL Cholesterol Direct HDL Cholesterol Urine WBC (Auto) RYLAN Screen RYLAN Titer Complement C3 Complement C4 12/18/16 12/18/16 12/19/16 18:43 23:33 03:04 WBC RBC Hgb Hct Plt Count Lymph % (Auto) [place] % (Auto) Lymph # Seg Neutrophils % Seg Neutrophils # PT INR POC ABG pH 7.455 H POC ABG pCO2 POC ABG pO2 Sodium Potassium Chloride Carbon Dioxide BUN Creatinine Glucose POC Glucose 176 H 174 H Lactic Acid Calcium Phosphorus Magnesium AST Alkaline Phosphatase C-Reactive Protein Total Protein Albumin Itwyk-6-Cjmznphbr Ybeip-4-Mspbhzxjc Beta Globulins Gamma Globulins PEP Interpretation Triglycerides LDL Cholesterol Direct HDL Cholesterol Urine WBC (Auto) RYLAN Screen RYLAN Titer Complement C3 Complement C4 12/19/16 12/19/16 12/19/16 05:47 10:40 10:40 WBC RBC 3.06 L Hgb 9.2 L Hct 28.0 L Plt Count 126 L Lymph % (Auto) [place] % (Auto) Lymph # Seg Neutrophils % Seg Neutrophils # PT INR POC ABG pH POC ABG pCO2 POC ABG pO2 Sodium Potassium 3.0 L Chloride Carbon Dioxide BUN 55 H Creatinine 3.4 H Glucose 161 H POC Glucose 160 H Lactic Acid Calcium Phosphorus 5.10 H Magnesium AST Alkaline Phosphatase C-Reactive Protein Total Protein Albumin Yabvo-0-Hhqbmqatb Vdarh-0-Iiatelsfb Beta Globulins Gamma Globulins PEP Interpretation Triglycerides LDL Cholesterol Direct HDL Cholesterol Urine WBC (Auto) RYLAN Screen RYLAN Titer Complement C3 Complement C4 12/19/16 12/19/16 12/20/16 13:00 18:04 00:04 WBC RBC Hgb Hct Plt Count Lymph % (Auto) [place] % (Auto) Lymph # Seg Neutrophils % Seg Neutrophils # PT INR POC ABG pH POC ABG pCO2 POC ABG pO2 Sodium Potassium Chloride Carbon Dioxide BUN Creatinine Glucose POC Glucose 173 H 129 H 152 H Lactic Acid Calcium Phosphorus Magnesium AST Alkaline Phosphatase C-Reactive Protein Total Protein Albumin Etovg-7-Nadnawtle Mlxny-9-Ycogpdobr Beta Globulins Gamma Globulins PEP Interpretation Triglycerides LDL Cholesterol Direct HDL Cholesterol Urine WBC (Auto) RYLAN Screen RYLAN Titer Complement C3 Complement C4 12/20/16 12/20/16 12/20/16 05:34 05:45 10:47 WBC RBC Hgb Hct Plt Count Lymph % (Auto) [place] % (Auto) Lymph # Seg Neutrophils % Seg Neutrophils # PT INR POC ABG pH POC ABG pCO2 POC ABG pO2 110 H Sodium Potassium 3.4 L Chloride Carbon Dioxide BUN 72 H Creatinine 4.0 H Glucose 130 H POC Glucose 175 H Lactic Acid Calcium Phosphorus Magnesium AST Alkaline Phosphatase C-Reactive Protein Total Protein Albumin Yjjzj-6-Scjxkmuxg Mlxvn-0-Lpfqbatqh Beta Globulins Gamma Globulins PEP Interpretation Triglycerides LDL Cholesterol Direct HDL Cholesterol Urine WBC (Auto) RYLAN Screen RYLAN Titer Complement C3 Complement C4 12/20/16 12/20/16 12/20/16 11:56 18:14 23:43 WBC RBC Hgb Hct Plt Count Lymph % (Auto) [place] % (Auto) Lymph # Seg Neutrophils % Seg Neutrophils # PT INR POC ABG pH POC ABG pCO2 POC ABG pO2 Sodium Potassium Chloride Carbon Dioxide BUN Creatinine Glucose POC Glucose 130 H 142 H 193 H Lactic Acid Calcium Phosphorus Magnesium AST Alkaline Phosphatase C-Reactive Protein Total Protein Albumin Ztaar-3-Shuihgpsz Fkydu-8-Hinxitgkh Beta Globulins Gamma Globulins PEP Interpretation Triglycerides LDL Cholesterol Direct HDL Cholesterol Urine WBC (Auto) RYLAN Screen RYLAN Titer Complement C3 Complement C4 12/21/16 12/21/16 12/21/16 05:10 08:32 12:29 WBC RBC Hgb Hct Plt Count Lymph % (Auto) [place] % (Auto) Lymph # Seg Neutrophils % Seg Neutrophils # PT INR POC ABG pH POC ABG pCO2 POC ABG pO2 Sodium 146 H Potassium Chloride Carbon Dioxide BUN 85 H Creatinine 4.3 H Glucose 184 H POC Glucose 204 H 214 H Lactic Acid Calcium Phosphorus Magnesium AST Alkaline Phosphatase C-Reactive Protein Total Protein Albumin Uufsu-8-Bnqzgjptu Doyip-4-Rlctlnlaq Beta Globulins Gamma Globulins PEP Interpretation Triglycerides LDL Cholesterol Direct HDL Cholesterol Urine WBC (Auto) RYLNA Screen RYLAN Titer Complement C3 Complement C4 12/21/16 12/21/16 12/22/16 18:06 23:31 05:38 WBC RBC Hgb Hct Plt Count Lymph % (Auto) [place] % (Auto) Lymph # Seg Neutrophils % Seg Neutrophils # PT INR POC ABG pH POC ABG pCO2 POC ABG pO2 Sodium Potassium Chloride Carbon Dioxide BUN Creatinine Glucose POC Glucose 184 H 191 H 182 H Lactic Acid Calcium Phosphorus Magnesium AST Alkaline Phosphatase C-Reactive Protein Total Protein Albumin Qdldw-4-Yhiaaoqrv Ykoxo-4-Dsmocquch Beta Globulins Gamma Globulins PEP Interpretation Triglycerides LDL Cholesterol Direct HDL Cholesterol Urine WBC (Auto) RYLAN Screen RYLAN Titer Complement C3 Complement C4 12/22/16 12/22/16 12/22/16 06:30 12:23 15:07 WBC RBC Hgb Hct Plt Count Lymph % (Auto) [place] % (Auto) Lymph # Seg Neutrophils % Seg Neutrophils # PT INR POC ABG pH POC ABG pCO2 POC ABG pO2 Sodium 148 H Potassium 3.3 L Chloride Carbon Dioxide BUN 87 H Creatinine 4.4 H Glucose 186 H POC Glucose 205 H Lactic Acid Calcium Phosphorus Magnesium AST Alkaline Phosphatase C-Reactive Protein 12.10 H Total Protein Albumin Knumk-0-Gvurtxsyt Dogzz-2-Dzqdcmfhd Beta Globulins Gamma Globulins PEP Interpretation Triglycerides LDL Cholesterol Direct HDL Cholesterol Urine WBC (Auto) RYLAN Screen RYLAN Titer Complement C3 Complement C4 12/22/16 12/22/16 12/23/16 16:25 22:49 05:15 WBC RBC Hgb Hct Plt Count Lymph % (Auto) [place] % (Auto) Lymph # Seg Neutrophils % Seg Neutrophils # PT INR POC ABG pH POC ABG pCO2 POC ABG pO2 Sodium Potassium 3.5 L Chloride Carbon Dioxide BUN 49 H Creatinine 2.6 H Glucose 189 H POC Glucose 187 H 195 H Lactic Acid Calcium Phosphorus Magnesium AST Alkaline Phosphatase C-Reactive Protein Total Protein Albumin Lgasq-8-Ceubgpanw Pdbrq-5-Xaapqnhya Beta Globulins Gamma Globulins PEP Interpretation Triglycerides LDL Cholesterol Direct HDL Cholesterol Urine WBC (Auto) RYLAN Screen RYLAN Titer Complement C3 Complement C4 12/23/16 12/23/16 12/23/16 05:15 06:00 11:54 WBC RBC 3.05 L Hgb 9.1 L Hct 27.9 L Plt Count Lymph % (Auto) [place] % (Auto) Lymph # Seg Neutrophils % 77.5 H Seg Neutrophils # 8.1 H PT INR POC ABG pH POC ABG pCO2 POC ABG pO2 187 H Sodium Potassium Chloride Carbon Dioxide BUN Creatinine Glucose POC Glucose 209 H Lactic Acid Calcium Phosphorus Magnesium AST Alkaline Phosphatase C-Reactive Protein Total Protein Albumin Pguya-6-Mgxfymjyn Sgddt-5-Zcyryityr Beta Globulins Gamma Globulins PEP Interpretation Triglycerides LDL Cholesterol Direct HDL Cholesterol Urine WBC (Auto) RYLAN Screen RYLAN Titer Complement C3 Complement C4 12/23/16 12/23/16 12/23/16 12:05 17:31 23:41 WBC RBC Hgb Hct Plt Count Lymph % (Auto) [place] % (Auto) Lymph # Seg Neutrophils % Seg Neutrophils # PT INR POC ABG pH POC ABG pCO2 POC ABG pO2 Sodium Potassium Chloride Carbon Dioxide BUN Creatinine Glucose POC Glucose 231 H 233 H 283 H Lactic Acid Calcium Phosphorus Magnesium AST Alkaline Phosphatase C-Reactive Protein Total Protein Albumin Keqvh-2-Nvyypdxil Mjrsu-3-Prgnmhwxg Beta Globulins Gamma Globulins PEP Interpretation Triglycerides LDL Cholesterol Direct HDL Cholesterol Urine WBC (Auto) RYLAN Screen RYLAN Titer Complement C3 Complement C4 12/24/16 12/24/16 05:00 05:08 WBC RBC Hgb Hct Plt Count Lymph % (Auto) [place] % (Auto) Lymph # Seg Neutrophils % Seg Neutrophils # PT INR POC ABG pH POC ABG pCO2 POC ABG pO2 Sodium Potassium 2.7 L* D Chloride Carbon Dioxide BUN 63 H Creatinine 2.8 H Glucose 284 H POC Glucose 312 H Lactic Acid Calcium Phosphorus Magnesium AST Alkaline Phosphatase C-Reactive Protein Total Protein Albumin [id number]-[id number]-Lovirargc [id number] Beta Globulins Gamma Globulins PEP Interpretation Triglycerides LDL Cholesterol Direct HDL Cholesterol Urine WBC (Auto) RYLAN Screen RYLAN Titer Complement C3 Complement C4 Chest x-ray: report reviewed, image reviewed
[2016-12-24] MEDS: DIFLUCAN 200 MG/100 ML BAG IV SCH (14:49)
[2016-12-24 15:07] LABS: Alanine Aminotransferase 20 units/L (7-56); Albumin 2.7 g/dL (3.9-5); Albumin/Globulin Ratio 0.6 %; Alkaline Phosphatase 82 units/L (35-129); Total Protein 7.3 g/dL (6.3-8.2)
[2016-12-24 15:13] LABS: Bilirubin,Direct < 0.2 mg/dL (0-0.2)
--- NOTE | 2016-12-24 18:17 | Cat Scan Report ---
FINAL REPORT PROCEDURE: CT abdomen and pelvis without contrast. TECHNIQUE: Computerized axial tomography of the abdomen and pelvis was performed without intravenous contrast. This study is performed without intravascular contrast material and its sensitivity for abdominal and pelvic pathology, including neoplasms, inflammation, abscess, free fluid, thrombosis, arterial dissection and infarction, is reduced compared with a contrast enhanced study. HISTORY: Sepsis, abdominal distension. COMPARISON: No prior studies are available for comparison. FINDINGS: There is minimal subsegmental atelectasis in both lung bases. There are no pleural effusions. The heart size is normal. The liver, pancreas and spleen are grossly normal. The gallbladder is present. The adrenal glands are not enlarged. Both kidneys appear normal in size and configuration. There are 2 nonobstructing calculi in the right kidney. The largest is in the middle 3rd measuring 8.7 millimeters. There are 4 nonobstructing calculi in the left kidney. The largest is in the lower pole measuring 13 millimeters. There are 2 large adjacent obstructing calculi at the ureteropelvic junction. The largest measures 10.6 millimeters in diameter. It is probably too large to pass through the ureter spontaneously. Referral to a urologist is recommended. The abdominal aorta has a normal caliber. There is no retroperitoneal adenopathy. A nasogastric tube enters the stomach. There is moderate distension of the colon with air and fluid. This is nonspecific. There is a gradual caliber change in the distal sigmoid colon but there is also fluid beyond this and mild dilatation of the rectum. I see no definite signs of a colonic obstruction. This could be better evaluated with a barium enema examination if clinically indicated. The bladder is decompressed with a Loredo catheter. The uterus has been removed. There is a right common femoral venous catheter that terminates in the right common iliac vein. The regional skeleton appears intact. IMPRESSION: Bilateral renal calculi. Two large obstructing calculi at the left ureteropelvic junction. Referral to a urologist recommended. Nonspecific colonic distension without definite signs of mechanical obstruction. Previous hysterectomy.
[2016-12-24] MEDS: ZOCOR PO SCH (22:37)
[2016-12-25] MEDS: NOVOLOG SUB-Q SCH ×4 (00:12→18:37)
[2016-12-25] MEDS: TYLENOL PO PRN (04:00)
[2016-12-25 05:29] LABS: Albumin 2.7 g/dL (3.9-5); Albumin/Globulin Ratio 0.7 %; BUN/Creatinine Ratio 22.85; Bilirubin,Total 0.2 mg/dL (0.1-1.2); Calcium 9.2 mg/dL (8.4-10.2); Chloride 109.9 mmol/L (98-107); Total Protein 6.7 g/dL (6.3-8.2)
[2016-12-25 05:32] LABS: Potassium 2.8 mmol/L (3.6-5.0)
[2016-12-25] MEDS ORDERED: K-DUR PO ONE ×2 (05:43→11:00)
[2016-12-25] MEDS: HEPARIN SUB-Q SCH ×3 (05:53→23:25)
[2016-12-25] MEDS: APRESOLINE IV PRN (05:58)
[2016-12-25 08:59] LABS: Magnesium 1.7 mg/dL (1.7-2.3); Phosphorous 4.3 mg/dL (2.5-4.5)
--- NOTE | 2016-12-25 09:31 | Progress Note ---
Assessment and Plan Assessment: 1) Sepsis: still high fever. Initial etiology most likely UTI/bacteremia. However, noted persistent fever despite appropriate IV antibiotic coverage ? VAP ? GI ? lupus flare ? central -repeat blood cx negative -LE US negative for DVT -CRP=12 2) Complicated UTI with left obstructive calculi x 2: -Secondary to Klebsiella. -Renal US normal. -Repeat urine cx + Lyndsay-likely a colonizer -CT showed bilateral renal calculi with 2 obstructive calculi to the left 3) Klebsiella bacteremia: from UTI. Repeat blood cx / negative 4) ?Lupus flare 5) Respiratory failure 6) Encephalopathy ? anoxic ? metabolic 7) Abdominal distention ? ileous ? reactive due to obstructive calculi 8) TAYA-worsening Plan: -Urology consult -Please remove femoral HD cath as possible -f/u procalcitonin -continue cefepime, vancomycin and fluconazole renally dosed Thank you Dr Espinosa for your consultation, will follow up with you. Leta Xavier MD Infectious Diseases Specialist [facility] ([facility]) M [phone] O [phone] Subjective Date of service: 12/25/16 Principal diagnosis: Coma Interval history: Still high fever at 103 overnight, on the vent via trach, currently on T-piece, FIO2 28% with no noted acute distress. Current Antimicrobials: vanco 12/22 cefepime 12/22 fluconazole 12/24 Previous Antimicrobials: ceftriaxone 12/16 Microbiology: Blood cultures: 12/12 Klebsiella 9/2 neg 12/25 ngtd Urine cultures: 12/13 Klebsiella /3 Lyndsay Respiratory cultures: 12/15 Lyndsay 12/22 pending Wound cultures: Stool cultures: Other: Objective - Exam Narrative Exam: General appearance: more alert on t-piece in NAD Eyes: anicteric sclerae, moist conjunctivae; PERRLA HENT: Atraumatic; oropharynx limited Neck: Trach Lungs: suzan rhonchi CV: RRR, no murmurs Abdomen: Soft, distended, tense, increased BS Extremities: + edema, no extremity lymphadenopathy Skin: Normal temperature, turgor and texture; no rash, ulcers or subcutaneous nodules Psych: alert Neuro: alert, upper extremities contracted Lines: femoral HD cath. Loredo in place - Constitutional Vitals: Vital Signs Temp Pulse Resp BP Pulse Ox 100.3 F H 109 H 23 158/73 97 12/25/16 07:41 12/25/16 07:31 12/25/16 07:31 12/25/16 07:31 12/25/16 07:31 Temperature -Last 24 Hours Temperature 100.3 F Temperature 103 F Temperature 100.2 F Temperature 100.9 F Temperature 100.9 F Temperature 100.8 F Temperature 100.6 F - Labs CBC & Chem 7: 12/23/16 05:15 12/25/16 04:38 Labs: Abnormal lab results 12/24/16 12/24/16 12/24/16 Range/Units 05:00 11:53 17:40 Sodium (137-145) mmol/L Potassium (3.6-5.0) mmol/L Chloride (98-107) mmol/L Carbon Dioxide (22-30) mmol/L BUN (7-17) mg/dL Creatinine (0.7-1.2) mg/dL Glucose (65-100) mg/dL POC Glucose 236 H 236 H (70-105) Albumin 2.7 L (3.9-5) g/dL 12/24/16 12/25/16 12/25/16 Range/Units 23:47 04:38 05:11 Sodium 147 H (137-145) mmol/L Potassium 2.8 L* (3.6-5.0) mmol/L Chloride 109.9 H (98-107) mmol/L Carbon Dioxide 20 L (22-30) mmol/L BUN 64 H (7-17) mg/dL Creatinine 2.8 H (0.7-1.2) mg/dL Glucose 243 H (65-100) mg/dL POC Glucose 280 H 254 H (70-105) Albumin 2.7 L (3.9-5) g/dL
[2016-12-25] MEDS ORDERED: MAGNESIUM SULFATE IV ONE (09:42)
[2016-12-25] MEDS: MAXIPIME/NS 1 GM/100 ML 1 GM/100 ML BAG IV SCH (10:16)
[2016-12-25] MEDS: DIFLUCAN 200 MG/100 ML BAG IV SCH (10:17)
[2016-12-25] MEDS: COREG PO SCH ×2 (10:17→23:24)
[2016-12-25] MEDS: LEVEMIR SUB-Q SCH (10:17)
[2016-12-25] MEDS: PEPCID PO SCH (10:18)
[2016-12-25] MEDS: ASPIRIN PO SCH (10:18)
[2016-12-25] MEDS: KCL 10MEQ/100ML 10 MEQ/100 ML BAG IV SCH ×4 (10:22→14:09)
[2016-12-25] MEDS ORDERED: MAGNESIUM SULFATE 2GM/50ML 2 GM/50 ML BAG IV ONE (11:00)
--- NOTE | 2016-12-25 12:20 | Progress Note ---
Assessment and Plan Imp: 1. UTI/bacteremia/sepsis 2. TAYA -> ATN 3. S/p CP arrest 4. Anoxic encephalopathy 5. S/p Trach 6. Morbid obesity 7. Acute respiratory failure, hypoxia 8. ? Ileus 9. Nephrolithiasis Rec: 1. F/u repeat cultures; ABX as per ID 2. T-piece trials daily; rest on PSV at night although may be able to do 24/7 Tpiece soon; return to AC prn only 3. Will need PEG at some point 4. Holding all sedation; neurology f/u 5. DVT PPx 6. Urology consult pending re: obstructing calculi 7. Guarded prognosis; agree w/ LTAC 8. Complex decision-making/patient Plan of care reviewed w/ , he understands/agrees Subjective Date of service: 12/25/16 Principal diagnosis: Coma Interval history: No events. Tolerating Tpiece. Opens eyes minimally, not following commands or answering questions. TFs on hold due to abd distension although no residuals and + BMs. Active Medications Acetaminophen (Tylenol) 650 mg PO Q4H PRN PRN Reason: Pain, Mild (1-3) Last Admin: 12/25/16 04:00 Dose: 650 mg Albumin Human (Alburx 25% (Albumin)) 12.5 gm IV DIPESH PRN PRN Reason: Hypotension Lipase/Protease/Amylase (Pancreiman Lopes 10,500 Unit) 1 each FEEDTUBE PRN PRN PRN Reason: For Clogged Feeding Tube Artificial Tears (Isopto Tears 0.5%) 2 drops OU Q4H PRN PRN Reason: Dry Eye(s) Last Admin: 12/16/16 05:25 Dose: 2 drops Aspirin (Aspirin) 325 mg PO QDAY [facility] Last Admin: 12/25/16 10:18 Dose: 325 mg Bisacodyl (Dulcolax) 10 mg UT QDAY PRN PRN Reason: Constipation Carvedilol (Coreg) 3.125 mg PO BID [facility] Last Admin: 12/25/16 10:17 Dose: 3.125 mg Dextrose (D50w (25gm)) 50 ml IV PRN PRN PRN Reason: Hypoglycemia Last Admin: 12/15/16 10:25 Dose: 50 ml Famotidine (Pepcid) 20 mg PO DAILY [facility] Last Admin: 12/25/16 10:18 Dose: 20 mg Heparin Sodium (Porcine) (Heparin) 5,000 unit SUB-Q Q8HR [facility] Last Admin: 12/25/16 05:53 Dose: 5,000 unit Heparin Sodium (Porcine) (Heparin) 5,000 unit IV DIPESH PRN PRN Reason: dwell Last Admin: 12/22/16 17:54 Dose: 5,000 unit Hydralazine HCl (Apresoline) 5 mg IV Q6H PRN PRN Reason: Keep SBP between 160-185 mm Hg Last Admin: 12/25/16 05:58 Dose: 5 mg Sodium Chloride (Nacl 0.9%) 100 mls @ 999 mls/hr IV DIPESH PRN PRN Reason: Hypotension Sodium Chloride (Nacl 0.9%) 100 mls @ 999 mls/hr IV DIPESH PRN PRN Reason: Hypotension Cefepime HCl (Maxipime/Ns 1 Gm/100 Ml) 1 gm in 100 mls @ 200 mls/hr IV Q24HR LENARD PRN Reason: Protocol Last Admin: 12/25/16 10:16 Dose: 200 mls/hr Fluconazole (Diflucan) 200 mg in 100 mls @ 100 mls/hr IV Q24HR LENARD Last Admin: 12/25/16 10:17 Dose: 100 mls/hr Potassium Chloride (Kcl 10meq/100ml) 10 meq in 100 mls @ 100 mls/hr IV Q1H LENARD Stop: 12/25/16 14:59 Last Admin: 12/25/16 10:22 Dose: 100 mls/hr Magnesium Sulfate (Magnesium Sulfate 2gm/50ml) 2 gm in 50 mls @ 25 mls/hr IV ONCE ONE Stop: 12/25/16 12:59 Last Admin: 12/25/16 10:22 Dose: 25 mls/hr Insulin Aspart (Novolog) 0 units SUB-Q Q6HR LENARD PRN Reason: Protocol Last Admin: 12/25/16 06:28 Dose: 6 units Insulin Detemir (Levemir) 12 units SUB-Q DAILY [facility] Last Admin: 12/25/16 10:17 Dose: 12 units Magnesium Hydroxide (Milk Of Magnesia) 30 ml PO Q4H PRN PRN Reason: Constipation Ondansetron HCl (Zofran) 4 mg IV Q8H PRN PRN Reason: N/V unrelieved by Sammy Simple Syrup (Simple Syrup) 15 ml FEEDTUBE PRN PRN PRN Reason: Hypoglycemia Simple Syrup (Simple Syrup) 30 ml FEEDTUBE PRN PRN PRN Reason: Hypoglycemia Simvastatin (Zocor) 20 mg PO QHS [facility] Last Admin: 12/24/16 22:37 Dose: 20 mg Sodium Bicarbonate (Sodium Bicarbonate) 325 mg FEEDTUBE PRN PRN PRN Reason: For Clogged Feeding Tube Sodium Chloride (Sodium Chloride Flush Syringe 10 Ml) 10 ml IV PRN PRN PRN Reason: LINE FLUSH Vancomycin HCl (Vancomycin Pharmacy To Dose) 1 each IV PKCONSULT [facility] Objective Vital Signs - 12hr 12/25/16 12/25/16 12/25/16 00:31 01:00 01:31 Temperature Pulse Rate 108 H 113 H 117 H Respiratory 22 24 22 Rate Blood Pressure 161/79 155/77 155/77 O2 Sat by Pulse 98 98 98 Oximetry O2 Sat by Pulse Oximetry [ Assessment] 12/25/16 12/25/16 12/25/16 02:00 02:31 03:00 Temperature Pulse Rate 113 H 119 H 112 H Respiratory 23 19 22 Rate Blood Pressure 149/74 149/74 149/74 O2 Sat by Pulse 98 99 97 Oximetry O2 Sat by Pulse Oximetry [ Assessment] 12/25/16 12/25/16 12/25/16 03:31 03:45 03:51 Temperature 103 F H Pulse Rate 103 H 102 H Respiratory 19 Rate Blood Pressure 151/70 151/70 O2 Sat by Pulse 97 98 Oximetry O2 Sat by Pulse Oximetry [ Assessment] 12/25/16 12/25/16 12/25/16 04:00 04:31 05:00 Temperature Pulse Rate 101 H 103 H 102 H Respiratory 20 21 19 Rate Blood Pressure 159/78 159/78 160/83 O2 Sat by Pulse 98 98 98 Oximetry O2 Sat by Pulse Oximetry [ Assessment] 12/25/16 12/25/16 12/25/16 05:18 05:24 05:31 Temperature Pulse Rate 106 H 107 H Respiratory 22 27 H Rate Blood Pressure 160/83 160/83 O2 Sat by Pulse 96 97 Oximetry O2 Sat by Pulse 99 Oximetry [ Assessment] 12/25/16 12/25/16 12/25/16 05:58 06:00 06:31 Temperature Pulse Rate 107 H 106 H 113 H Respiratory 19 22 Rate Blood Pressure 160/83 174/82 189/72 O2 Sat by Pulse 97 97 Oximetry O2 Sat by Pulse Oximetry [ Assessment] 12/25/16 12/25/16 12/25/16 07:00 07:31 07:41 Temperature 100.3 F H Pulse Rate 104 H 109 H Respiratory 24 23 Rate Blood Pressure 158/73 158/73 O2 Sat by Pulse 97 97 Oximetry O2 Sat by Pulse Oximetry [ Assessment] 12/25/16 12/25/16 10:17 11:49 Temperature 99.3 F Pulse Rate 103 H Respiratory Rate Blood Pressure 145/77 O2 Sat by Pulse Oximetry O2 Sat by Pulse Oximetry [ Assessment] Constitutional: other (eyes open, nothing purposeful) Eyes: non-icteric ENT: oropharynx moist, other (trach midline) Neck: supple, other (large in circumference) Effort: normal Ascultation: Bilateral: clear Cardiovascular: regular rate and rhythm (no mrg) Gastrointestinal: hypoactive bowel sounds, other (obese, distended) Integumentary: normal Extremities: no cyanosis, no edema, pink and warm Neurologic: other (flaccid extremities, not following commands; ? some posturing RUE; eyes are open but not tracking) Psychiatric: other (not able to assess) CBC and BMP: 12/23/16 05:15 12/25/16 04:38 ABG, PT/INR, D-dimer: ABG POC ABG pH 7.433 (7.35-7.45) 12/23/16 11:54 POC ABG pCO2 39.9 (35-45) 12/23/16 11:54 POC ABG pO2 187 (80-105) H 12/23/16 11:54 POC ABG HCO3 26.7 12/23/16 11:54 POC ABG Total CO2 28 12/23/16 11:54 POC ABG O2 Sat 100 12/23/16 11:54 PT/INR, D-dimer PT 17.6 Sec. (12.2-14.9) H 12/16/16 06:30 INR 1.45 (0.87-1.13) H 12/16/16 06:30 Abnormal lab findings: Abnormal Labs 12/12/16 12/12/16 12/12/16 08:06 12:27 15:23 WBC RBC Hgb Hct Plt Count Lymph % (Auto) [place] % (Auto) Lymph # Seg Neutrophils % Seg Neutrophils # PT INR POC ABG pH POC ABG pCO2 POC ABG pO2 Sodium Potassium Chloride Carbon Dioxide BUN Creatinine Glucose POC Glucose 299 H 281 H Lactic Acid 4.20 H* Calcium Phosphorus Magnesium AST Alkaline Phosphatase C-Reactive Protein Total Protein Albumin Fvpjc-5-Ybgcwgnpl Fexwr-2-Cjenninoa Beta Globulins Gamma Globulins PEP Interpretation Triglycerides LDL Cholesterol Direct HDL Cholesterol Urine WBC (Auto) RYLAN Screen RYLAN Titer Complement C3 Complement C4 12/12/16 12/12/16 12/12/16 16:53 19:51 20:43 WBC RBC Hgb Hct Plt Count Lymph % (Auto) [place] % (Auto) Lymph # Seg Neutrophils % Seg Neutrophils # PT INR POC ABG pH POC ABG pCO2 POC ABG pO2 Sodium Potassium Chloride Carbon Dioxide BUN Creatinine Glucose POC Glucose 272 H 238 H Lactic Acid 2.90 H* Calcium Phosphorus Magnesium AST Alkaline Phosphatase C-Reactive Protein Total Protein Albumin Opqtk-3-Yaqebgyrj Rqafm-9-Jadzwgsjm Beta Globulins Gamma Globulins PEP Interpretation Triglycerides LDL Cholesterol Direct HDL Cholesterol Urine WBC (Auto) RYLAN Screen RYLAN Titer Complement C3 Complement C4 12/12/16 12/13/16 12/13/16 21:30 03:39 03:39 WBC RBC Hgb Hct Plt Count 118 L Lymph % (Auto) 7.4 L [place] % (Auto) 7.6 H Lymph # 0.7 L Seg Neutrophils % 84.7 H Seg Neutrophils # 8.4 H PT INR POC ABG pH POC ABG pCO2 POC ABG pO2 Sodium 133 L Potassium Chloride 96.5 L Carbon Dioxide 18 L BUN 49 H Creatinine 3.1 H D Glucose 173 H POC Glucose Lactic Acid Calcium 8.3 L D Phosphorus Magnesium 1.20 L AST Alkaline Phosphatase C-Reactive Protein Total Protein Albumin 2.6 L Mwxtg-5-Ezjsxkfck Vudna-7-Xnbcuytmv Beta Globulins Gamma Globulins PEP Interpretation Triglycerides 166 H LDL Cholesterol Direct 24 L HDL Cholesterol 9 L Urine WBC (Auto) > 182.0 H RYLAN Screen RYLAN Titer Complement C3 Complement C4 12/13/16 12/13/16 12/13/16 07:41 11:53 17:23 WBC RBC Hgb Hct Plt Count Lymph % (Auto) [place] % (Auto) Lymph # Seg Neutrophils % Seg Neutrophils # PT INR POC ABG pH POC ABG pCO2 POC ABG pO2 Sodium Potassium Chloride Carbon Dioxide BUN Creatinine Glucose POC Glucose 222 H 221 H 247 H Lactic Acid Calcium Phosphorus Magnesium AST Alkaline Phosphatase C-Reactive Protein Total Protein Albumin Xszsr-1-Jyootchyb Bchze-3-Gyiswhlsd Beta Globulins Gamma Globulins PEP Interpretation Triglycerides LDL Cholesterol Direct HDL Cholesterol Urine WBC (Auto) RYLAN Screen RYLAN Titer Complement C3 Complement C4 12/13/16 12/14/16 12/14/16 21:29 03:35 03:35 WBC RBC 3.42 L Hgb Hct Plt Count 86 L Lymph % (Auto) 6.1 L [place] % (Auto) Lymph # 0.3 L Seg Neutrophils % 87.3 H Seg Neutrophils # PT INR POC ABG pH POC ABG pCO2 POC ABG pO2 Sodium 133 L Potassium 5.1 H Chloride 96.2 L Carbon Dioxide 17 L BUN 63 H Creatinine 4.2 H Glucose 136 H POC Glucose 185 H Lactic Acid Calcium 8.1 L Phosphorus Magnesium 1.30 L AST Alkaline Phosphatase C-Reactive Protein Total Protein Albumin Rpxtd-8-Brlthunfj Jpopn-6-Tszrdmwyi Beta Globulins Gamma Globulins PEP Interpretation Triglycerides LDL Cholesterol Direct HDL Cholesterol Urine WBC (Auto) RYLAN Screen RYLAN Titer Complement C3 Complement C4 12/14/16 12/14/16 12/14/16 08:32 09:00 09:00 WBC RBC Hgb Hct Plt Count Lymph % (Auto) [place] % (Auto) Lymph # Seg Neutrophils % Seg Neutrophils # PT INR POC ABG pH POC ABG pCO2 POC ABG pO2 Sodium Potassium Chloride Carbon Dioxide BUN Creatinine Glucose POC Glucose 152 H Lactic Acid Calcium Phosphorus Magnesium AST Alkaline Phosphatase C-Reactive Protein Total Protein Albumin Mjmxk-1-Pengvvxor Llklw-8-Seezzapyy Beta Globulins Gamma Globulins PEP Interpretation Triglycerides LDL Cholesterol Direct HDL Cholesterol Urine WBC (Auto) RYLAN Screen Positive H RYLAN Titer 1:320 H Complement C3 206 H Complement C4 12/14/16 12/14/16 12/14/16 09:00 09:00 11:50 WBC RBC Hgb Hct Plt Count Lymph % (Auto) [place] % (Auto) Lymph # Seg Neutrophils % Seg Neutrophils # PT INR POC ABG pH POC ABG pCO2 POC ABG pO2 Sodium Potassium Chloride Carbon Dioxide BUN Creatinine Glucose POC Glucose 168 H Lactic Acid Calcium Phosphorus Magnesium AST Alkaline Phosphatase C-Reactive Protein Total Protein Albumin 2.6 L Xtfmb-4-Vlzbikshb 0.7 H Bbmke-9-Syiebkrqm 1.0 H Beta Globulins 0.7 H Gamma Globulins 0.7 L PEP Interpretation see below H Triglycerides LDL Cholesterol Direct HDL Cholesterol Urine WBC (Auto) RYLAN Screen RYLAN Titer Complement C3 Complement C4 56 H 12/14/16 12/15/16 12/15/16 17:35 04:35 04:35 WBC 4.1 L RBC 3.39 L Hgb Hct Plt Count 84 L Lymph % (Auto) 8.8 L [place] % (Auto) Lymph # 0.4 L Seg Neutrophils % 83.6 H Seg Neutrophils # PT INR POC ABG pH POC ABG pCO2 POC ABG pO2 Sodium Potassium 6.0 H Chloride Carbon Dioxide 15 L BUN 79 H Creatinine 5.0 H Glucose POC Glucose 154 H Lactic Acid Calcium 8.0 L Phosphorus 6.70 H D Magnesium AST Alkaline Phosphatase C-Reactive Protein Total Protein Albumin Ypbtd-9-Ftdbudtyn Ktlud-8-Qjalbktie Beta Globulins Gamma Globulins PEP Interpretation Triglycerides LDL Cholesterol Direct HDL Cholesterol Urine WBC (Auto) RYLAN Screen RYLAN Titer Complement C3 Complement C4 12/15/16 12/15/16 12/15/16 07:45 08:13 15:20 WBC RBC Hgb Hct Plt Count Lymph % (Auto) [place] % (Auto) Lymph # Seg Neutrophils % Seg Neutrophils # PT INR POC ABG pH 7.156 L 7.228 L POC ABG pCO2 48.7 H POC ABG pO2 232 H Sodium Potassium Chloride Carbon Dioxide BUN Creatinine Glucose POC Glucose 113 H Lactic Acid Calcium Phosphorus Magnesium AST Alkaline Phosphatase C-Reactive Protein Total Protein Albumin Jhkku-3-Gymetxgmd Hgoie-1-Xgiadmsjc Beta Globulins Gamma Globulins PEP Interpretation Triglycerides LDL Cholesterol Direct HDL Cholesterol Urine WBC (Auto) RYLNA Screen RYLAN Titer Complement C3 Complement C4 12/15/16 12/15/16 12/15/16 23:53 Unknown Unknown WBC RBC 3.19 L Hgb 9.6 L Hct 29.8 L Plt Count 108 L Lymph % (Auto) 6.5 L [place] % (Auto) Lymph # 0.4 L Seg Neutrophils % 87.1 H Seg Neutrophils # PT 16.2 H INR 1.31 H POC ABG pH POC ABG pCO2 POC ABG pO2 Sodium Potassium Chloride Carbon Dioxide BUN Creatinine Glucose POC Glucose 232 H Lactic Acid Calcium Phosphorus Magnesium AST Alkaline Phosphatase C-Reactive Protein Total Protein Albumin Fcalk-3-Asyinuqyj Hxqco-8-Lspoyoziy Beta Globulins Gamma Globulins PEP Interpretation Triglycerides LDL Cholesterol Direct HDL Cholesterol Urine WBC (Auto) RYLAN Screen RYLAN Titer Complement C3 Complement C4 12/15/16 12/16/16 12/16/16 Unknown 04:58 05:39 WBC RBC Hgb Hct Plt Count Lymph % (Auto) [place] % (Auto) Lymph # Seg Neutrophils % Seg Neutrophils # PT INR POC ABG pH POC ABG pCO2 POC ABG pO2 143 H Sodium Potassium Chloride Carbon Dioxide 16 L BUN 85 H Creatinine 4.9 H Glucose 205 H POC Glucose 201 H Lactic Acid Calcium 8.2 L Phosphorus Magnesium AST 77 H Alkaline Phosphatase 136 H C-Reactive Protein Total Protein Albumin 2.3 L Yuckv-7-Klymwwlmx Kzpdq-2-Svfbdraqs Beta Globulins Gamma Globulins PEP Interpretation Triglycerides LDL Cholesterol Direct HDL Cholesterol Urine WBC (Auto) RYLAN Screen RYLAN Titer Complement C3 Complement C4 12/16/16 12/16/16 12/16/16 06:30 06:30 06:30 WBC 4.0 L RBC 3.23 L Hgb 9.6 L Hct 29.8 L Plt Count 110 L Lymph % (Auto) 11.3 L [place] % (Auto) Lymph # 0.5 L Seg Neutrophils % 81.2 H Seg Neutrophils # PT 17.6 H INR 1.45 H POC ABG pH POC ABG pCO2 POC ABG pO2 Sodium Potassium Chloride Carbon Dioxide 20 L BUN 57 H Creatinine 3.6 H Glucose 176 H POC Glucose Lactic Acid Calcium 8.1 L Phosphorus 4.90 H D Magnesium 1.60 L AST 46 H Alkaline Phosphatase 137 H C-Reactive Protein Total Protein Albumin 2.3 L Btxuz-7-Naxuepjew Xqshk-2-Qcrumbgcb Beta Globulins Gamma Globulins PEP Interpretation Triglycerides LDL Cholesterol Direct HDL Cholesterol Urine WBC (Auto) RYLAN Screen RYLAN Titer Complement C3 Complement C4 12/16/16 12/16/16 12/16/16 11:16 15:30 17:23 WBC RBC Hgb Hct Plt Count Lymph % (Auto) [place] % (Auto) Lymph # Seg Neutrophils % Seg Neutrophils # PT INR POC ABG pH POC ABG pCO2 POC ABG pO2 Sodium Potassium Chloride Carbon Dioxide BUN Creatinine Glucose POC Glucose 194 H 209 H Lactic Acid Calcium Phosphorus Magnesium AST 43 H Alkaline Phosphatase 156 H C-Reactive Protein Total Protein 5.6 L Albumin 2.4 L Aahzz-2-Oxpgdnpih Zqxek-0-Zsypviqkb Beta Globulins Gamma Globulins PEP Interpretation Triglycerides LDL Cholesterol Direct HDL Cholesterol Urine WBC (Auto) RYLAN Screen RYLAN Titer Complement C3 Complement C4 12/16/16 12/17/16 12/17/16 23:35 03:38 05:18 WBC RBC Hgb Hct Plt Count Lymph % (Auto) [place] % (Auto) Lymph # Seg Neutrophils % Seg Neutrophils # PT INR POC ABG pH 7.485 H POC ABG pCO2 POC ABG pO2 Sodium Potassium Chloride Carbon Dioxide BUN Creatinine Glucose POC Glucose 179 H 201 H Lactic Acid Calcium Phosphorus Magnesium AST Alkaline Phosphatase C-Reactive Protein Total Protein Albumin Sfqnw-4-Xbvibicwd Xjkzd-7-Cztyzjdwz Beta Globulins Gamma Globulins PEP Interpretation Triglycerides LDL Cholesterol Direct HDL Cholesterol Urine WBC (Auto) RYLAN Screen RYLAN Titer Complement C3 Complement C4 12/17/16 12/17/16 12/17/16 07:24 12:00 13:58 WBC RBC 3.02 L Hgb 9.2 L Hct 27.2 L Plt Count 100 L Lymph % (Auto) [place] % (Auto) 7.9 H Lymph # 0.8 L Seg Neutrophils % 75.0 H Seg Neutrophils # PT INR POC ABG pH POC ABG pCO2 POC ABG pO2 Sodium Potassium 3.3 L Chloride Carbon Dioxide BUN 50 H Creatinine 3.1 H Glucose 181 H POC Glucose 176 H Lactic Acid Calcium Phosphorus Magnesium AST Alkaline Phosphatase 155 H C-Reactive Protein Total Protein Albumin 2.2 L Twruz-4-Hsaigvwbi Rdlav-4-Rdzmvqswu Beta Globulins Gamma Globulins PEP Interpretation Triglycerides LDL Cholesterol Direct HDL Cholesterol Urine WBC (Auto) RYLAN Screen RYLAN Titer Complement C3 Complement C4 12/17/16 12/18/16 12/18/16 17:11 00:05 05:40 WBC RBC Hgb Hct Plt Count Lymph % (Auto) [place] % (Auto) Lymph # Seg Neutrophils % Seg Neutrophils # PT INR POC ABG pH POC ABG pCO2 POC ABG pO2 Sodium Potassium Chloride Carbon Dioxide BUN Creatinine Glucose POC Glucose 152 H 155 H 170 H Lactic Acid Calcium Phosphorus Magnesium AST Alkaline Phosphatase C-Reactive Protein Total Protein Albumin Yuqyq-0-Ipaljikhe Uuwrh-2-Ccsiacyge Beta Globulins Gamma Globulins PEP Interpretation Triglycerides LDL Cholesterol Direct HDL Cholesterol Urine WBC (Auto) RYLAN Screen RYLAN Titer Complement C3 Complement C4 12/18/16 12/18/16 12/18/16 07:52 12:21 15:10 WBC RBC Hgb Hct Plt Count Lymph % (Auto) [place] % (Auto) Lymph # Seg Neutrophils % Seg Neutrophils # PT INR POC ABG pH POC ABG pCO2 POC ABG pO2 Sodium Potassium 2.9 L* Chloride Carbon Dioxide BUN 69 H Creatinine 4.5 H Glucose 150 H POC Glucose 165 H 130 H Lactic Acid Calcium Phosphorus Magnesium AST Alkaline Phosphatase C-Reactive Protein Total Protein Albumin Bnvqh-5-Strepabdk Tycrv-9-Usljqbcab Beta Globulins Gamma Globulins PEP Interpretation Triglycerides LDL Cholesterol Direct HDL Cholesterol Urine WBC (Auto) RYLAN Screen RYLAN Titer Complement C3 Complement C4 12/18/16 12/18/16 12/19/16 18:43 23:33 03:04 WBC RBC Hgb Hct Plt Count Lymph % (Auto) [place] % (Auto) Lymph # Seg Neutrophils % Seg Neutrophils # PT INR POC ABG pH 7.455 H POC ABG pCO2 POC ABG pO2 Sodium Potassium Chloride Carbon Dioxide BUN Creatinine Glucose POC Glucose 176 H 174 H Lactic Acid Calcium Phosphorus Magnesium AST Alkaline Phosphatase C-Reactive Protein Total Protein Albumin Tisaf-8-Xpepofzaz Zvqxf-4-Glgrlkxve Beta Globulins Gamma Globulins PEP Interpretation Triglycerides LDL Cholesterol Direct HDL Cholesterol Urine WBC (Auto) RYLAN Screen RYLAN Titer Complement C3 Complement C4 12/19/16 12/19/16 12/19/16 05:47 10:40 10:40 WBC RBC 3.06 L Hgb 9.2 L Hct 28.0 L Plt Count 126 L Lymph % (Auto) [place] % (Auto) Lymph # Seg Neutrophils % Seg Neutrophils # PT INR POC ABG pH POC ABG pCO2 POC ABG pO2 Sodium Potassium 3.0 L Chloride Carbon Dioxide BUN 55 H Creatinine 3.4 H Glucose 161 H POC Glucose 160 H Lactic Acid Calcium Phosphorus 5.10 H Magnesium AST Alkaline Phosphatase C-Reactive Protein Total Protein Albumin Opymk-4-Lxoqikoas Zomom-3-Ephgvqrwc Beta Globulins Gamma Globulins PEP Interpretation Triglycerides LDL Cholesterol Direct HDL Cholesterol Urine WBC (Auto) RYLAN Screen RYLAN Titer Complement C3 Complement C4 12/19/16 12/19/16 12/20/16 13:00 18:04 00:04 WBC RBC Hgb Hct Plt Count Lymph % (Auto) [place] % (Auto) Lymph # Seg Neutrophils % Seg Neutrophils # PT INR POC ABG pH POC ABG pCO2 POC ABG pO2 Sodium Potassium Chloride Carbon Dioxide BUN Creatinine Glucose POC Glucose 173 H 129 H 152 H Lactic Acid Calcium Phosphorus Magnesium AST Alkaline Phosphatase C-Reactive Protein Total Protein Albumin Zaovu-8-Riizrdcvy Ucymd-4-Rorhqbwhl Beta Globulins Gamma Globulins PEP Interpretation Triglycerides LDL Cholesterol Direct HDL Cholesterol Urine WBC (Auto) RYLAN Screen RYLAN Titer Complement C3 Complement C4 12/20/16 12/20/16 12/20/16 05:34 05:45 10:47 WBC RBC Hgb Hct Plt Count Lymph % (Auto) [place] % (Auto) Lymph # Seg Neutrophils % Seg Neutrophils # PT INR POC ABG pH POC ABG pCO2 POC ABG pO2 110 H Sodium Potassium 3.4 L Chloride Carbon Dioxide BUN 72 H Creatinine 4.0 H Glucose 130 H POC Glucose 175 H Lactic Acid Calcium Phosphorus Magnesium AST Alkaline Phosphatase C-Reactive Protein Total Protein Albumin Ntmpc-6-Hjetravpw Uelbx-6-Qqzxteats Beta Globulins Gamma Globulins PEP Interpretation Triglycerides LDL Cholesterol Direct HDL Cholesterol Urine WBC (Auto) RYLAN Screen RYLAN Titer Complement C3 Complement C4 12/20/16 12/20/16 12/20/16 11:56 18:14 23:43 WBC RBC Hgb Hct Plt Count Lymph % (Auto) [place] % (Auto) Lymph # Seg Neutrophils % Seg Neutrophils # PT INR POC ABG pH POC ABG pCO2 POC ABG pO2 Sodium Potassium Chloride Carbon Dioxide BUN Creatinine Glucose POC Glucose 130 H 142 H 193 H Lactic Acid Calcium Phosphorus Magnesium AST Alkaline Phosphatase C-Reactive Protein Total Protein Albumin Zsmqt-2-Grwhwylse Ylwny-0-Hevuwyvoq Beta Globulins Gamma Globulins PEP Interpretation Triglycerides LDL Cholesterol Direct HDL Cholesterol Urine WBC (Auto) RYLAN Screen RYLAN Titer Complement C3 Complement C4 12/21/16 12/21/16 12/21/16 05:10 08:32 12:29 WBC RBC Hgb Hct Plt Count Lymph % (Auto) [place] % (Auto) Lymph # Seg Neutrophils % Seg Neutrophils # PT INR POC ABG pH POC ABG pCO2 POC ABG pO2 Sodium 146 H Potassium Chloride Carbon Dioxide BUN 85 H Creatinine 4.3 H Glucose 184 H POC Glucose 204 H 214 H Lactic Acid Calcium Phosphorus Magnesium AST Alkaline Phosphatase C-Reactive Protein Total Protein Albumin Lafuh-0-Ewvfminht Bcaem-3-Xkzidqrtk Beta Globulins Gamma Globulins PEP Interpretation Triglycerides LDL Cholesterol Direct HDL Cholesterol Urine WBC (Auto) RYLAN Screen RYLAN Titer Complement C3 Complement C4 12/21/16 12/21/16 12/22/16 18:06 23:31 05:38 WBC RBC Hgb Hct Plt Count Lymph % (Auto) [place] % (Auto) Lymph # Seg Neutrophils % Seg Neutrophils # PT INR POC ABG pH POC ABG pCO2 POC ABG pO2 Sodium Potassium Chloride Carbon Dioxide BUN Creatinine Glucose POC Glucose 184 H 191 H 182 H Lactic Acid Calcium Phosphorus Magnesium AST Alkaline Phosphatase C-Reactive Protein Total Protein Albumin Yikaa-7-Svogexbcm Yiutx-0-Bgosikxqr Beta Globulins Gamma Globulins PEP Interpretation Triglycerides LDL Cholesterol Direct HDL Cholesterol Urine WBC (Auto) RYLAN Screen RYLAN Titer Complement C3 Complement C4 12/22/16 12/22/16 12/22/16 06:30 12:23 15:07 WBC RBC Hgb Hct Plt Count Lymph % (Auto) [place] % (Auto) Lymph # Seg Neutrophils % Seg Neutrophils # PT INR POC ABG pH POC ABG pCO2 POC ABG pO2 Sodium 148 H Potassium 3.3 L Chloride Carbon Dioxide BUN 87 H Creatinine 4.4 H Glucose 186 H POC Glucose 205 H Lactic Acid Calcium Phosphorus Magnesium AST Alkaline Phosphatase C-Reactive Protein 12.10 H Total Protein Albumin Blgrq-1-Jrovahptz Yzykk-5-Myrcpxjdb Beta Globulins Gamma Globulins PEP Interpretation Triglycerides LDL Cholesterol Direct HDL Cholesterol Urine WBC (Auto) RYLAN Screen RYLAN Titer Complement C3 Complement C4 12/22/16 12/22/16 12/23/16 16:25 22:49 05:15 WBC RBC Hgb Hct Plt Count Lymph % (Auto) [place] % (Auto) Lymph # Seg Neutrophils % Seg Neutrophils # PT INR POC ABG pH POC ABG pCO2 POC ABG pO2 Sodium Potassium 3.5 L Chloride Carbon Dioxide BUN 49 H Creatinine 2.6 H Glucose 189 H POC Glucose 187 H 195 H Lactic Acid Calcium Phosphorus Magnesium AST Alkaline Phosphatase C-Reactive Protein Total Protein Albumin Naaqe-6-Nhnjwqanh Dorkz-8-Xolbqmpit Beta Globulins Gamma Globulins PEP Interpretation Triglycerides LDL Cholesterol Direct HDL Cholesterol Urine WBC (Auto) RYLAN Screen RYLAN Titer Complement C3 Complement C4 12/23/16 12/23/16 12/23/16 05:15 06:00 11:54 WBC RBC 3.05 L Hgb 9.1 L Hct 27.9 L Plt Count Lymph % (Auto) [place] % (Auto) Lymph # Seg Neutrophils % 77.5 H Seg Neutrophils # 8.1 H PT INR POC ABG pH POC ABG pCO2 POC ABG pO2 187 H Sodium Potassium Chloride Carbon Dioxide BUN Creatinine Glucose POC Glucose 209 H Lactic Acid Calcium Phosphorus Magnesium AST Alkaline Phosphatase C-Reactive Protein Total Protein Albumin Leqkd-4-Smiitrrnh Kjqxf-4-Swfklzvme Beta Globulins Gamma Globulins PEP Interpretation Triglycerides LDL Cholesterol Direct HDL Cholesterol Urine WBC (Auto) RYLAN Screen RYLAN Titer Complement C3 Complement C4 12/23/16 12/23/16 12/23/16 12:05 17:31 23:41 WBC RBC Hgb Hct Plt Count Lymph % (Auto) [place] % (Auto) Lymph # Seg Neutrophils % Seg Neutrophils # PT INR POC ABG pH POC ABG pCO2 POC ABG pO2 Sodium Potassium Chloride Carbon Dioxide BUN Creatinine Glucose POC Glucose 231 H 233 H 283 H Lactic Acid Calcium Phosphorus Magnesium AST Alkaline Phosphatase C-Reactive Protein Total Protein Albumin Nsqkt-9-Xngxjnovs Gkjuw-2-Qlrqjceko Beta Globulins Gamma Globulins PEP Interpretation Triglycerides LDL Cholesterol Direct HDL Cholesterol Urine WBC (Auto) RYLAN Screen RYLAN Titer Complement C3 Complement C4 12/24/16 12/24/16 12/24/16 05:00 05:00 05:08 WBC RBC Hgb Hct Plt Count Lymph % (Auto) [place] % (Auto) Lymph # Seg Neutrophils % Seg Neutrophils # PT INR POC ABG pH POC ABG pCO2 POC ABG pO2 Sodium Potassium 2.7 L* D Chloride Carbon Dioxide BUN 63 H Creatinine 2.8 H Glucose 284 H POC Glucose 312 H Lactic Acid Calcium Phosphorus Magnesium AST Alkaline Phosphatase C-Reactive Protein Total Protein Albumin 2.7 L Uxwqx-9-Usnpezfsh Xevct-0-Wzlvrcvjj Beta Globulins Gamma Globulins PEP Interpretation Triglycerides LDL Cholesterol Direct HDL Cholesterol Urine WBC (Auto) RYLAN Screen RYLAN Titer Complement C3 Complement C4 12/24/16 12/24/16 12/24/16 11:53 17:40 23:47 WBC RBC Hgb Hct Plt Count Lymph % (Auto) [place] % (Auto) Lymph # Seg Neutrophils % Seg Neutrophils # PT INR POC ABG pH POC ABG pCO2 POC ABG pO2 Sodium Potassium Chloride Carbon Dioxide BUN Creatinine Glucose POC Glucose 236 H 236 H 280 H Lactic Acid Calcium Phosphorus Magnesium AST Alkaline Phosphatase C-Reactive Protein Total Protein Albumin Numel-5-Lryjxgwja Kssqu-6-Hwjrpxcmh Beta Globulins Gamma Globulins PEP Interpretation Triglycerides LDL Cholesterol Direct HDL Cholesterol Urine WBC (Auto) RYLAN Screen RYLAN Titer Complement C3 Complement C4 12/25/16 12/25/16 12/25/16 04:38 05:11 11:35 WBC RBC Hgb Hct Plt Count Lymph % (Auto) [place] % (Auto) Lymph # Seg Neutrophils % Seg Neutrophils # PT INR POC ABG pH POC ABG pCO2 POC ABG pO2 Sodium 147 H Potassium 2.8 L* Chloride 109.9 H Carbon Dioxide 20 L BUN 64 H Creatinine 2.8 H Glucose 243 H POC Glucose 254 H 253 H Lactic Acid Calcium Phosphorus Magnesium AST Alkaline Phosphatase C-Reactive Protein Total Protein Albumin 2.7 L Tzomu-8-Ngejnauhf Dszgt-5-Fgvhegmob Beta Globulins Gamma Globulins PEP Interpretation Triglycerides LDL Cholesterol Direct HDL Cholesterol Urine WBC (Auto) RYLAN Screen RYLAN Titer Complement C3 Complement C4 Chest x-ray: report reviewed, image reviewed
--- NOTE | 2016-12-25 12:40 | Progress Note ---
Assessment and Plan L ureteral stomne ? urosepsis rec perc Left if stable Subjective Date of service: 12/25/16 Principal diagnosis: Coma l upj stone Objective - Constitutional Vitals: Vital Signs - 12hr 12/25/16 12/25/16 12/25/16 01:00 01:31 02:00 Temperature Pulse Rate 113 H 117 H 113 H Respiratory 24 22 23 Rate Blood Pressure 155/77 155/77 149/74 O2 Sat by Pulse 98 98 98 Oximetry O2 Sat by Pulse Oximetry [ Assessment] 12/25/16 12/25/16 12/25/16 02:31 03:00 03:31 Temperature Pulse Rate 119 H 112 H 103 H Respiratory 19 22 19 Rate Blood Pressure 149/74 149/74 151/70 O2 Sat by Pulse 99 97 97 Oximetry O2 Sat by Pulse Oximetry [ Assessment] 12/25/16 12/25/16 12/25/16 03:45 03:51 04:00 Temperature 103 F H Pulse Rate 102 H 101 H Respiratory 20 Rate Blood Pressure 151/70 159/78 O2 Sat by Pulse 98 98 Oximetry O2 Sat by Pulse Oximetry [ Assessment] 12/25/16 12/25/16 12/25/16 04:31 05:00 05:18 Temperature Pulse Rate 103 H 102 H Respiratory 21 19 Rate Blood Pressure 159/78 160/83 O2 Sat by Pulse 98 98 Oximetry O2 Sat by Pulse 99 Oximetry [ Assessment] 12/25/16 12/25/16 12/25/16 05:24 05:31 05:58 Temperature Pulse Rate 106 H 107 H 107 H Respiratory 22 27 H Rate Blood Pressure 160/83 160/83 160/83 O2 Sat by Pulse 96 97 Oximetry O2 Sat by Pulse Oximetry [ Assessment] 12/25/16 12/25/16 12/25/16 06:00 06:31 07:00 Temperature Pulse Rate 106 H 113 H 104 H Respiratory 19 22 24 Rate Blood Pressure 174/82 189/72 158/73 O2 Sat by Pulse 97 97 97 Oximetry O2 Sat by Pulse Oximetry [ Assessment] 12/25/16 12/25/16 12/25/16 07:31 07:41 08:00 Temperature 100.3 F H Pulse Rate 109 H 109 H Respiratory 23 16 Rate Blood Pressure 158/73 152/69 O2 Sat by Pulse 97 97 Oximetry O2 Sat by Pulse Oximetry [ Assessment] 12/25/16 12/25/16 12/25/16 08:31 09:00 09:30 Temperature Pulse Rate 108 H 103 H 104 H Respiratory 22 25 H 25 H Rate Blood Pressure 152/69 153/79 153/79 O2 Sat by Pulse 97 96 97 Oximetry O2 Sat by Pulse Oximetry [ Assessment] 12/25/16 12/25/16 12/25/16 10:00 10:17 10:30 Temperature Pulse Rate 101 H 103 H 106 H Respiratory 25 H 22 Rate Blood Pressure 145/77 145/77 145/77 O2 Sat by Pulse 96 97 Oximetry O2 Sat by Pulse Oximetry [ Assessment] 12/25/16 12/25/16 12/25/16 11:00 11:30 11:49 Temperature 99.3 F Pulse Rate 108 H 103 H Respiratory 21 19 Rate Blood Pressure 168/93 168/93 O2 Sat by Pulse 97 97 Oximetry O2 Sat by Pulse Oximetry [ Assessment] 12/25/16 12:00 Temperature Pulse Rate 101 H Respiratory 19 Rate Blood Pressure 165/97 O2 Sat by Pulse 98 Oximetry O2 Sat by Pulse Oximetry [ Assessment] General appearance: Present: severe distress - Respiratory Respiratory effort: labored - Gastrointestinal General gastrointestinal: Present: non-tender, non-distended - Labs CBC & Chem 7: 12/23/16 05:15 12/25/16 04:38 Labs: Abnormal lab results 12/24/16 12/24/16 12/24/16 Range/Units 05:00 11:53 17:40 Sodium (137-145) mmol/L Potassium (3.6-5.0) mmol/L Chloride (98-107) mmol/L Carbon Dioxide (22-30) mmol/L BUN (7-17) mg/dL Creatinine (0.7-1.2) mg/dL Glucose (65-100) mg/dL POC Glucose 236 H 236 H (70-105) Albumin 2.7 L (3.9-5) g/dL 12/24/16 12/25/16 12/25/16 Range/Units 23:47 04:38 05:11 Sodium 147 H (137-145) mmol/L Potassium 2.8 L* (3.6-5.0) mmol/L Chloride 109.9 H (98-107) mmol/L Carbon Dioxide 20 L (22-30) mmol/L BUN 64 H (7-17) mg/dL Creatinine 2.8 H (0.7-1.2) mg/dL Glucose 243 H (65-100) mg/dL POC Glucose 280 H 254 H (70-105) Albumin 2.7 L (3.9-5) g/dL 12/25/16 Range/Units 11:35 Sodium (137-145) mmol/L Potassium (3.6-5.0) mmol/L Chloride (98-107) mmol/L Carbon Dioxide (22-30) mmol/L BUN (7-17) mg/dL Creatinine (0.7-1.2) mg/dL Glucose (65-100) mg/dL POC Glucose 253 H (70-105) Albumin (3.9-5) g/dL
--- NOTE | 2016-12-25 13:29 | Progress Note ---
Assessment and Plan - Patient Problems (1) Acute kidney failure with tubular necrosis Current Visit: Yes Status: Acute Plan to address problem: stable renal function with Cr at 2.8mg/dl, pt remains non-oliguric, will cont to hold HD and monitor for signs of renal recovery. increase free water flushes via NGT to 300cc q4hr given developing hypernatremia. CT A/P showed obstructive L UPJ stones. follow recommendations. D/w ICU team (2) Sepsis due to urinary tract infection Current Visit: Yes Status: Acute Plan to address problem: Continue antibiotics and follow (3) Type 2 diabetes mellitus Current Visit: Yes Status: Chronic Qualifiers: Diabetes mellitus complication status: D Diabetes mellitus complication detail: D Diabetic retinopathy severity: D Proliferative retinopathy type: P Diabetes mellitus macular edema: D Diabetes mellitus fpc insulin use : D Laterality: L Chronic kidney disease stage: C Plan to address problem: Blood sugar control by primary attending (4) Hypertension Current Visit: Yes Status: Chronic Qualifiers: Hypertension type: H Plan to address problem: Blood pressure improved on low-dose beta ariana and hydralazine prn, with parameters to hold (5) Anoxic encephalopathy Current Visit: Yes Status: Acute Plan to address problem: Continue management by neurologist. [place] for improvement in neurologic status (6) Hypokalemia Current Visit: Yes Status: Acute Plan to address problem: K supplementation with IV KCl 10meq x 4 bags, 40meq KCl via NGT. (7) Hypernatremia Current Visit: Yes Status: Acute Plan to address problem: due to free water deficit, cont 300ml q4h free water flushes via NGT Subjective Date of service: 12/25/16 Principal diagnosis: Coma l upj stone Interval history: pt with grimacing upon pain stimuli, not interactive Objective - Vital Signs Vital signs: Vital Signs - 12hr 12/25/16 12/25/16 12/25/16 01:31 02:00 02:31 Temperature Pulse Rate 117 H 113 H 119 H Respiratory 22 23 19 Rate Blood Pressure 155/77 149/74 149/74 O2 Sat by Pulse 98 98 99 Oximetry O2 Sat by Pulse Oximetry [ Assessment] 12/25/16 12/25/16 12/25/16 03:00 03:31 03:45 Temperature Pulse Rate 112 H 103 H 102 H Respiratory 22 19 Rate Blood Pressure 149/74 151/70 151/70 O2 Sat by Pulse 97 97 98 Oximetry O2 Sat by Pulse Oximetry [ Assessment] 12/25/16 12/25/16 12/25/16 03:51 04:00 04:31 Temperature 103 F H Pulse Rate 101 H 103 H Respiratory 20 21 Rate Blood Pressure 159/78 159/78 O2 Sat by Pulse 98 98 Oximetry O2 Sat by Pulse Oximetry [ Assessment] 12/25/16 12/25/16 12/25/16 05:00 05:18 05:24 Temperature Pulse Rate 102 H 106 H Respiratory 19 22 Rate Blood Pressure 160/83 160/83 O2 Sat by Pulse 98 96 Oximetry O2 Sat by Pulse 99 Oximetry [ Assessment] 12/25/16 12/25/16 12/25/16 05:31 05:58 06:00 Temperature Pulse Rate 107 H 107 H 106 H Respiratory 27 H 19 Rate Blood Pressure 160/83 160/83 174/82 O2 Sat by Pulse 97 97 Oximetry O2 Sat by Pulse Oximetry [ Assessment] 12/25/16 12/25/16 12/25/16 06:31 07:00 07:31 Temperature Pulse Rate 113 H 104 H 109 H Respiratory 22 24 23 Rate Blood Pressure 189/72 158/73 158/73 O2 Sat by Pulse 97 97 97 Oximetry O2 Sat by Pulse Oximetry [ Assessment] 12/25/16 12/25/16 12/25/16 07:41 08:00 08:31 Temperature 100.3 F H Pulse Rate 109 H 108 H Respiratory 16 22 Rate Blood Pressure 152/69 152/69 O2 Sat by Pulse 97 97 Oximetry O2 Sat by Pulse Oximetry [ Assessment] 12/25/16 12/25/16 12/25/16 09:00 09:30 10:00 Temperature Pulse Rate 103 H 104 H 101 H Respiratory 25 H 25 H 25 H Rate Blood Pressure 153/79 153/79 145/77 O2 Sat by Pulse 96 97 96 Oximetry O2 Sat by Pulse Oximetry [ Assessment] 12/25/16 12/25/16 12/25/16 10:17 10:30 11:00 Temperature Pulse Rate 103 H 106 H 108 H Respiratory 22 21 Rate Blood Pressure 145/77 145/77 168/93 O2 Sat by Pulse 97 97 Oximetry O2 Sat by Pulse Oximetry [ Assessment] 12/25/16 12/25/16 12/25/16 11:30 11:49 12:00 Temperature 99.3 F Pulse Rate 103 H 101 H Respiratory 19 19 Rate Blood Pressure 168/93 165/97 O2 Sat by Pulse 97 98 Oximetry O2 Sat by Pulse Oximetry [ Assessment] 12/25/16 12/25/16 12:30 13:00 Temperature Pulse Rate 99 H 101 H Respiratory 25 H 19 Rate Blood Pressure 168/93 159/87 O2 Sat by Pulse 98 98 Oximetry O2 Sat by Pulse Oximetry [ Assessment] - General Appearance General appearance: well-nourished, appears stated age, comatose EENT: ATNC, PERRL, mucous membranes dry Neck: no JVD Respiratory: Present: Clear to Ascultation Cardiology: regular, S1S2 Gastrointestinal: normoactive bowel sounds Integumentary: no rash, other (trace edema ) - Lab 12/23/16 05:15 12/25/16 04:38 Most recent lab results Calcium 9.2 mg/dL (8.4-10.2) 12/25/16 04:38 Phosphorus 4.30 mg/dL (2.5-4.5) 12/25/16 04:38 Magnesium 1.70 mg/dL (1.7-2.3) 12/25/16 04:38
--- NOTE | 2016-12-25 13:32 | Event Note ---
Date: 12/25/16 This patient is known to our service from temporary dialysis catheter placement. I was contacted by the urology service to evaluate the patient's most recent CT, which demonstrated left-sided obstructing ureteral calculi. Overall, the patient's renal function has improved. Her creatinine is currently 2.8, whereas it was recently 4.1. Additionally, she has only very minimal hydronephrosis and perinephric stranding around the left kidney on CT. Her white blood cell count is normal, at 4. In light of her improving renal function, and severe comorbidities, percutaneous nephrostomy is not indicated at this time. We will continue to follow her. Should there be persistent questions regarding obstruction, a MAG 3 scan can be considered, although this would be logistically very difficult due to her overall status.
[2016-12-25] MEDS ORDERED: LEVEMIR SUB-Q ONE (15:00)
--- NOTE | 2016-12-25 15:14 | Progress Note ---
Assessment and Plan Assessment and plan: 56-year-old woman with a past medical history of qgd-jwdqmwe-livsmowlj diabetes , hypertension, chronic intermittent left middle toe infection presented to the hospital with right arm weakness and slurred speech. Patient also has history of frequent falls, chronic left knee pain and osteoarthritis and was planned for knee replacement. She was admitted to the hospital for stroke workup, she was found to have acute kidney injury on admission. Her kidney function continued to worsen, she was planned for CT-guided kidney biopsy on 12/15, but while she was at CT scan, she had an episode of cardiac arrest, she received CPR , unfortunately she had a very difficult airway multiple sclerosis for attempts were tried after which she had an emergency cricothyroidotomy. She most likely had prolonged period of anoxia leading to anoxic brain injury. Her mental status has not improved since then since this incidents she has been comatose. Sepsis secondary to UTI * Rocephin stopped * Fever 102 noted yesterday * started on cefepime and vancomycin * fever- repeat Blood cultures * Repeat ct chest and abdomen with po contrast. Discussed and ok with Nephrology * Klebsiella/candidada * Discussed with DR Paul * Consulted secondary to obstructing renal stones. Gram negative septicemia/sepsis * blood culture growing Klebsiella PNA, per ID switch to vancomycin and Cefapime * continue abx till 12/27 * ID input appreciated, abx have been changed to broaden coverage, Obstructing Nephrolithasis * left sided. * Urology consult for evalaution Acute kidney injury now ESRD and HD dependent * likely secondary to ATN, nephrology input appreciated, continue hemodialysis Toxic metabolic encephalopathy * Anoxic brain injury per MRI Type 2 diabetes * Continue sliding scale * increase basal insulin for better control Hypertension * BP acceptable, continue current management Anoxic Brain Injury/ Metabolic encephalopathy * She had an MRI of her brain on 12/12 did not show any acute changes * MRI brain shows ischemic injury in the subinsular regions, caudate nucleus, right posterior hippocampus * She most likely suffered this anoxic brain injury when she was in cardiac arrest. Acute respiratory failure, on MV greater than 96 hours * initially had emergent cricothyroidotomy on 12/15, and then sp tracheostomy on 12/18 * ON VENT DURING THE NIGHT TIME. Abdominal Distension * fup CT abdomen with PO contrast. Cardiogenic shock * Has been weaned off pressors Hypokalemia Replete judiciously, given that she has TAYA Hypomagnesemia Was replaced Hyperlipidemia Continue statin Hypothyroidism TSH within normal limits Continue Synthroid at current dose Obesity Hypoventilation/SHELIA continue vent DVT prophylaxis continue heparin Discussed with family and consultants Prognosis is poor. patient will likely SNF placement vs Hospice Placement, Her has been very resistant to hearing the poor prognosis of his . will need to organize a family meeting to discuss goals of care will recommend LTAC eval The high probability of a clinically significant, sudden or life threatening deterioration of the [pulmonary, cardiovascular, renal] system(s) required my full and direct attention, intervention and personal management. The aggregate critical care time was [35] minutes. This time is in addition to time spent performing reported procedures but includes the following: [X] Data Review and interpretation [X] Patient assessment and monitoring of vital signs [X] Documentation [X] Medication orders and management History Interval history: Patient seen and examined, remains in mild respiratory distress and not following commands. On ventilatory support overnight Hospitalist Physical - Physical exam Narrative exam: VITAL SIGNS: Reviewed. GENERAL: The patient appeared well nourished and normally developed. Vital signs as documented. HEAD: No signs of head trauma. EYES: Pupils are equal. Extraocular motions intact. EARS: Hearing grossly intact. MOUTH: Oropharynx is normal. NECK: No adenopathy, no JVD, tracheostomy site clean ON VENT CHEST: Chest with Crackles breath sounds bilaterally. CARDIAC: Regular rate and rhythm. S1 and S2, without murmurs, gallops, or rubs. VASCULAR: No Edema. Peripheral pulses normal and equal in all extremities. ABDOMEN: Soft, without detectable tenderness. Distended. No rebound or guarding, and no masses palpated. Bowel Sounds HYPOACTIVE. MUSCULOSKELETAL: Good range of motion of all major joints. Extremities without clubbing, cyanosis or edema. NEUROLOGIC EXAM: Posturing. Awake but disoriented not following commands. Unable to assess strength and sensory PSYCHIATRIC: unable to assess SKIN: No rash or lesions. - Constitutional Vitals: Temp Pulse Resp BP Pulse Ox 99.3 F 101 H 19 159/87 98 12/25/16 11:49 12/25/16 13:00 12/25/16 13:00 12/25/16 13:00 12/25/16 13:00 General appearance: Present: severe distress Results - Labs CBC & Chem 7: 12/23/16 05:15 12/26/16 03:30 Labs: Laboratory Last Values WBC 10.4 K/mm3 (4.5-11.0) 12/23/16 05:15 RBC 3.05 M/mm3 (3.65-5.03) L 12/23/16 05:15 Hgb 9.1 gm/dl (10.1-14.3) L 12/23/16 05:15 Hct 27.9 % (30.3-42.9) L 12/23/16 05:15 MCV 92 fl (79-97) 12/23/16 05:15 MCH 30 pg (28-32) 12/23/16 05:15 MCHC 33 % (30-34) 12/23/16 05:15 RDW 14.2 % (13.2-15.2) 12/23/16 05:15 Plt Count 164 K/mm3 (140-440) 12/23/16 05:15 Lymph % (Auto) 16.1 % (13.4-35.0) 12/23/16 05:15 [place] % (Auto) 4.9 % (0.0-7.3) 12/23/16 05:15 Eos % (Auto) 1.2 % (0.0-4.3) 12/23/16 05:15 Baso % (Auto) 0.3 % (0.0-1.8) 12/23/16 05:15 Lymph # 1.7 K/mm3 (1.2-5.4) 12/23/16 05:15 [place] # 0.5 K/mm3 (0.0-0.8) 12/23/16 05:15 Eos # 0.1 K/mm3 (0.0-0.4) 12/23/16 05:15 Baso # 0.0 K/mm3 (0.0-0.1) 12/23/16 05:15 Seg Neutrophils % 77.5 % (40.0-70.0) H 12/23/16 05:15 Seg Neutrophils # 8.1 K/mm3 (1.8-7.7) H 12/23/16 05:15 PT 17.6 Sec. (12.2-14.9) H 12/16/16 06:30 INR 1.45 (0.87-1.13) H 12/16/16 06:30 APTT 27.6 Sec. (24.2-36.6) 12/11/16 23:50 Thrombin Time 16.6 Sec. (15.1-19.6) 12/11/16 23:50 POC ABG pH 7.433 (7.35-7.45) 12/23/16 11:54 POC ABG pCO2 39.9 (35-45) 12/23/16 11:54 POC ABG pO2 187 (80-105) H 12/23/16 11:54 POC ABG HCO3 26.7 12/23/16 11:54 POC ABG Total CO2 28 12/23/16 11:54 POC ABG O2 Sat 100 12/23/16 11:54 POC ABG Base Excess 2 12/23/16 11:54 FiO2 30 % 12/23/16 11:54 Sodium 147 mmol/L (137-145) H 12/25/16 04:38 Potassium 2.8 mmol/L (3.6-5.0) L* 12/25/16 04:38 Chloride 109.9 mmol/L (98-107) H 12/25/16 04:38 Carbon Dioxide 20 mmol/L (22-30) L 12/25/16 04:38 Anion Gap 20 mmol/L 12/25/16 04:38 BUN 64 mg/dL (7-17) H 12/25/16 04:38 Creatinine 2.8 mg/dL (0.7-1.2) H 12/25/16 04:38 Estimated GFR 17 ml/min 12/25/16 04:38 BUN/Creatinine Ratio 22.85 % 12/25/16 04:38 Glucose 243 mg/dL (65-100) H 12/25/16 04:38 POC Glucose 253 (70-105) H 12/25/16 11:35 Lactic Acid 1.80 mmol/L (0.7-2.0) 12/15/16 Unknown Calcium 9.2 mg/dL (8.4-10.2) 12/25/16 04:38 Phosphorus 4.30 mg/dL (2.5-4.5) 12/25/16 04:38 Magnesium 1.70 mg/dL (1.7-2.3) 12/25/16 04:38 Total Bilirubin 0.20 mg/dL (0.1-1.2) 12/25/16 04:38 Direct Bilirubin < 0.2 mg/dL (0-0.2) 12/24/16 05:00 Indirect Bilirubin 0.0 mg/dL 12/16/16 15:30 AST 36 units/L (5-40) 12/25/16 04:38 ALT 25 units/L (7-56) 12/25/16 04:38 Alkaline Phosphatase 74 units/L (35-129) 12/25/16 04:38 Total Creatine Kinase 73 units/L (30-135) 12/15/16 04:35 Troponin T < 0.010 ng/mL (0.00-0.029) 12/11/16 23:50 C-Reactive Protein 12.10 mg/dL (0.00-1.30) H 12/22/16 15:07 Serum Total Protein 6.1 g/dL (6.1-8.1) 12/14/16 09:00 Total Protein 6.7 g/dL (6.3-8.2) 12/25/16 04:38 Albumin 2.7 g/dL (3.9-5) L 12/25/16 04:38 Albumin/Globulin Ratio 0.7 % 12/25/16 04:38 Uvvct-4-Qanzmopqv 0.7 g/dL (0.2-0.3) H 12/14/16 09:00 Cefyz-7-Jctdidpuu 1.0 g/dL (0.5-0.9) H 12/14/16 09:00 Beta Globulins 0.7 g/dL (0.2-0.5) H 12/14/16 09:00 Gamma Globulins 0.7 g/dL (0.8-1.7) L 12/14/16 09:00 Abnorm Protein Band 1 see below 12/14/16 09:00 PEP Interpretation see below H 12/14/16 09:00 Triglycerides 166 mg/dL (2-149) H 12/13/16 03:39 Cholesterol 66 mg/dL (50-199) 12/13/16 03:39 LDL Cholesterol Direct 24 mg/dL (50-130) L 12/13/16 03:39 HDL Cholesterol 9 mg/dL (40-59) L 12/13/16 03:39 Cholesterol/HDL Ratio 7.33 % 12/13/16 03:39 TSH 2.640 mlU/mL (0.270-4.200) 12/12/16 15:23 Urine Color Yellow (Yellow) 12/12/16 21:30 Urine Turbidity Turbid (Clear) 12/12/16 21:30 Urine pH 5.0 (5.0-7.0) 12/12/16 21:30 Ur Specific [place] 1.015 (1.003-1.030) 12/12/16 21:30 Urine Protein 100 mg/dl mg/dL (Negative) 12/12/16 21:30 Urine Glucose (UA) Neg mg/dL (Negative) 12/12/16 21:30 Urine Ketones Neg mg/dL (Negative) 12/12/16 21:30 Urine Blood Lg (Negative) 12/12/16 21:30 Urine Nitrite Neg (Negative) 12/12/16 21:30 Urine Bilirubin Neg (Negative) 12/12/16 21:30 Urine Urobilinogen < 2.0 mg/dL (<2.0) 12/12/16 21:30 Ur Leukocyte Esterase Lg (Negative) 12/12/16 21:30 Urine WBC (Auto) > 182.0 /HPF (0.0-6.0) H 12/12/16 21:30 Urine RBC (Auto) 62.0 /HPF (0.0-6.0) 12/12/16 21:30 U Epithel Cells (Auto) 7.0 /HPF (0-13.0) 12/12/16 21:30 Urine Bacteria (Auto) 4+ /HPF (Negative) 12/12/16 21:30 Urine WBC Clumps 3+ /HPF 12/12/16 21:30 Calcium Oxalate Crystal 3+ 12/12/16 21:30 Random Vancomycin 12.8 ug/mL (0-40.0) 12/24/16 05:00 Urine Opiates Screen Presumptive negative 12/12/16 21:30 Urine Methadone Screen Presumptive negative 12/12/16 21:30 Ur Barbiturates Screen Presumptive negative 12/12/16 21:30 Ur Phencyclidine Scrn Presumptive negative 12/12/16 21:30 Ur Amphetamines Screen Presumptive negative 12/12/16 21:30 U Benzodiazepines Scrn Presumptive negative 12/12/16 21:30 Urine Cocaine Screen Presumptive negative 12/12/16 21:30 U Marijuana (THC) Screen Presumptive negative 12/12/16 21:30 Drugs of Abuse Note Disclamer 12/12/16 21:30 RYLAN Screen Positive (Negative) H 12/14/16 09:00 RYLAN Titer 1:320 (Negative) H 12/14/16 09:00 RYLAN Pattern Homogeneous 12/14/16 09:00 Proteinase 3 (PR3) Ab <1.0 AI (<1.0) 12/14/16 09:00 Myeloperoxidase Ab <1.0 AI (<1.0) 12/14/16 09:00 Glomerular Base Mem IgG <1.0 AI (<1.0) 12/14/16 09:00 Complement C3 206 mg/dL (90-180) H 12/14/16 09:00 Complement C4 56 mg/dL (16-47) H 12/14/16 09:00 Hepatitis A IgM Ab Non-reactive (NonReactive) 12/18/16 18:30 Hep Bs Antigen Non-reactive (Negative) 12/18/16 18:30 Hep B Core IgM Ab Non-reactive (NonReactive) 12/18/16 18:30 Hepatitis C Antibody Non-reactive (NonReactive) 12/18/16 18:30 Renal Biopsy Scanned into med rec 12/15/16 13:43 - Imaging and Cardiology CT scan - abdomen: image reviewed (obstructing stone)
--- NOTE | 2016-12-25 23:22 | Consultation ---
HISTORY OF PRESENT ILLNESS: The patient is a 56-year-old woman who came in about 2 weeks ago with slurred speech, confusion. She has a history of hypertension, diabetes. They suspected she had a stroke. She had some mildly elevated white count as well and some mild hyponatremia and elevated creatinine. She has a history of diabetes as mentioned. I could not get a history from her. PAST MEDICAL HISTORY: As mentioned above. MEDICATIONS: She was on atenolol, Neurontin, Synthroid, lisinopril, glipizide, Glucophage. ALLERGIES: BACTRIM. SOCIAL HISTORY: Noncontributory. REVIEW OF SYSTEMS: Unobtainable. PHYSICAL EXAMINATION: GENERAL: She is in moderate respiratory distress. She has a tracheostomy. She is not communicative. ABDOMEN: Protuberant and obese. There is no localized tenderness. IMPRESSION: Left ureteropelvic junction stone, probable urosepsis. Her creatinine is elevated. White count is now down. She might benefit by percutaneous nephrostomy, but seeing that her overall condition is quite critical. We need to talk to Dr. Espinosa about any type of manipulation. JOB# [id number] SHAUNA/NICOLE
[2016-12-25] MEDS: ZOCOR PO SCH (23:24)
[2016-12-26] MEDS: NOVOLOG SUB-Q SCH ×4 (01:12→19:01)
[2016-12-26 04:04] LABS: Albumin 2.7 g/dL (3.9-5); Albumin/Globulin Ratio 0.6 %; BUN/Creatinine Ratio 23.46; Bilirubin,Total 0.2 mg/dL (0.1-1.2); Calcium 9.6 mg/dL (8.4-10.2); Total Protein 7.2 g/dL (6.3-8.2)
[2016-12-26 04:05] LABS: Potassium 2.6 mmol/L (3.6-5.0)
[2016-12-26] MEDS: KCL 20MEQ/100ML 20 MEQ/100 ML BAG IV SCH ×2 (05:08→06:25)
[2016-12-26] MEDS: APRESOLINE IV PRN (05:18)
[2016-12-26] MEDS: HEPARIN SUB-Q SCH ×3 (05:18→22:26)
[2016-12-26] MEDS ORDERED: KCL 20MEQ/100ML 20 MEQ/100 ML BAG IV SCH (08:00)
[2016-12-26] MEDS ORDERED: KCL 40 MEQ in NACL 0.45% 1000 ML 1,000 ML IV SCH (09:00)
--- NOTE | 2016-12-26 09:05 | Progress Note ---
Assessment and Plan Assessment: 1) Sepsis: still fever now trending down. Initial etiology most likely UTI/ bacteremia. However, noted persistent fever despite appropriate IV antibiotic coverage likely to obstructive left renal calculi -repeat blood cx negative -LE US negative for DVT -CRP=12 -Procalcitonin=0.7 2) Complicated UTI with left obstructive calculi x 2: -Secondary to Klebsiella. -Renal US normal. -Repeat urine cx + Lyndsay-likely a colonizer -CT showed bilateral renal calculi with 2 obstructive calculi to the left 3) Klebsiella bacteremia: from UTI. Repeat blood cx 12/20 negative 4) ?Lupus 5) Respiratory failure 6) Encephalopathy ? anoxic ? metabolic 7) Abdominal distention ? ileous ? reactive due to obstructive calculi 8) TAYA-worsening Plan: -IR evaluation reporting percutanous nephrostomy tube is not indicated at this time due to comorbilities and improvement of renal function -Pt spiked a fever at 103 yesterday which I believe is secondary to obstructive left stone. Please reconsider percutanous nephsrotomy tube placement if fever continues. -continue cefepime and fluconazole renally dosed for now -stop vancomycin - no evidence of MRSA -If fever / obstruction resolves will do PO levaquin and PO fluconazole total 14 days -If fever continues and obstruction is not resolved will consider continuing IV cefepime 1 g q day and po fluconazole for 14 days I will be covering the weekend Thank you Dr Espinosa for your consultation, will follow up with you. Leta Xavier MD Infectious Diseases Specialist [facility] ([facility]) M [phone] O [phone] Subjective Date of service: 12/26/16 Principal diagnosis: Coma l upj stone Interval history: Still high fever at 103 overnight, on the vent via trach, currently on T-piece, FIO2 28% with no noted acute distress. Current Antimicrobials: vanco 12/22 cefepime 12/22 fluconazole 12/24 Previous Antimicrobials: ceftriaxone 12/16 Microbiology: Blood cultures: 12/12 Klebsiella 9/2 neg 12/25 ngtd Urine cultures: 12/13 Klebsiella 9/3 Lyndsay Respiratory cultures: 12/15 Lyndsay 12/22 pending Wound cultures: Stool cultures: Other: Objective - Exam Narrative Exam: General appearance: more alert on t-piece in NAD Eyes: anicteric sclerae, moist conjunctivae; PERRLA HENT: Atraumatic; oropharynx limited Neck: Trach Lungs: suzan rhonchi CV: RRR, no murmurs Abdomen: Soft, distended, tense, increased BS Extremities: + edema, no extremity lymphadenopathy Skin: Normal temperature, turgor and texture; no rash, ulcers or subcutaneous nodules Psych: alert Neuro: alert, upper extremities contracted Lines: femoral HD cath. [place] in place - Constitutional Vitals: Vital Signs Temp Pulse Resp BP Pulse Ox 99.4 F 106 H 22 137/92 97 12/26/16 04:00 12/26/16 08:00 12/26/16 08:00 12/26/16 08:00 12/26/16 08:00 Temperature -Last 24 Hours Temperature 99.4 F Temperature 100.1 F Temperature 100.0 F Temperature 100.6 F Temperature 99.3 F - Labs CBC & Chem 7: 12/23/16 05:15 12/26/16 03:30 Labs: Abnormal lab results 12/23/16 12/25/16 12/25/16 Range/Units 06:00 10:08 11:35 Sodium (137-145) mmol/L Potassium (3.6-5.0) mmol/L Chloride (98-107) mmol/L Carbon Dioxide (22-30) mmol/L BUN (7-17) mg/dL Creatinine (0.7-1.2) mg/dL Glucose (65-100) mg/dL POC Glucose 252 H 253 H (70-105) AST (5-40) units/L Albumin (3.9-5) g/dL Miscellaneous Test Flexitest 1 H 12/25/16 12/26/16 12/26/16 Range/Units 18:16 00:00 03:30 Sodium 149 H (137-145) mmol/L Potassium 2.6 L* (3.6-5.0) mmol/L Chloride 113.0 H (98-107) mmol/L Carbon Dioxide 20 L (22-30) mmol/L BUN 61 H (7-17) mg/dL Creatinine 2.6 H (0.7-1.2) mg/dL Glucose 182 H (65-100) mg/dL POC Glucose 230 H 177 H (70-105) AST 46 H (5-40) units/L Albumin 2.7 L (3.9-5) g/dL Miscellaneous Test 12/26/16 Range/Units 05:42 Sodium (137-145) mmol/L Potassium (3.6-5.0) mmol/L Chloride (98-107) mmol/L Carbon Dioxide (22-30) mmol/L BUN (7-17) mg/dL Creatinine (0.7-1.2) mg/dL Glucose (65-100) mg/dL POC Glucose 183 H (70-105) AST (5-40) units/L Albumin (3.9-5) g/dL Miscellaneous Test
[2016-12-26] MEDS: KCL 10MEQ/100ML 10 MEQ/100 ML BAG IV SCH ×4 (09:30→13:18)
[2016-12-26] MEDS ORDERED: NACL 0.9% 100 ML IV PRN (10:05)
[2016-12-26] MEDS: DIFLUCAN 200 MG/100 ML BAG IV SCH (10:14)
[2016-12-26] MEDS: ASPIRIN PO SCH (10:15)
[2016-12-26] MEDS: PEPCID PO SCH (10:15)
[2016-12-26] MEDS: COREG PO SCH ×2 (10:15→22:45)
[2016-12-26] MEDS: LEVEMIR SUB-Q SCH (10:15)
[2016-12-26] MEDS: MAXIPIME/NS 1 GM/100 ML 1 GM/100 ML BAG IV SCH (10:17)
--- NOTE | 2016-12-26 13:31 | Progress Note ---
Assessment and Plan - Patient Problems (1) Acute kidney failure with tubular necrosis Current Visit: Yes Status: Acute Plan to address problem: stable renal function with BUN/Cr at 61/2.6mg/dl, pt remains non-oliguric. pt scheduled for CT urogram w/ contrast to assess UPJ obstruction and degree of hydronephrosis. Will arrange HD for partial IV contrast removal. Started on IV 1 /2 NS + Kcl. follow recommendations. D/w ICU team (2) Sepsis due to urinary tract infection Current Visit: Yes Status: Acute Plan to address problem: Continue antibiotics and follow (3) Type 2 diabetes mellitus Current Visit: Yes Status: Chronic Qualifiers: Diabetes mellitus complication status: D Diabetes mellitus complication detail: D Diabetic retinopathy severity: D Proliferative retinopathy type: P Diabetes mellitus macular edema: D Diabetes mellitus [employer] insulin use : D Laterality: L Chronic kidney disease stage: C Plan to address problem: Blood sugar control by primary attending (4) Hypertension Current Visit: Yes Status: Chronic Qualifiers: Hypertension type: H Plan to address problem: Blood pressure improved on low-dose beta ariana and hydralazine prn, with parameters to hold (5) Anoxic encephalopathy Current Visit: Yes Status: Acute Plan to address problem: Continue management by neurologist. [place] for improvement in neurologic status (6) Hypokalemia Current Visit: Yes Status: Acute Plan to address problem: K supplementation with IV KCl 20meq x 2 bags. started on maintenance 1/2NS + 40meq/L Kcl (7) Hypernatremia Current Visit: Yes Status: Acute Plan to address problem: due to free water deficit, cont 300ml q4h free water flushes via NGT along with 1/2 NS. (8) Left ureteral calculus Current Visit: Yes Status: Acute Plan to address problem: CT urogram w/ contrast scheduled. follow /IR recommendations Subjective Date of service: 12/26/16 Principal diagnosis: Coma l upj stone Interval history: pt without significant neurological change, in no acute distress. Objective - Vital Signs Vital signs: Vital Signs - 12hr 12/26/16 12/26/16 12/26/16 01:30 02:00 02:30 Temperature Pulse Rate 92 H 96 H 95 H Pulse Rate [ From Monitor] Respiratory 18 18 17 Rate Blood Pressure 165/92 163/83 163/83 O2 Sat by Pulse 99 99 98 Oximetry 12/26/16 12/26/16 12/26/16 03:00 03:30 04:00 Temperature 99.4 F Pulse Rate 98 H 100 H 98 H Pulse Rate [ From Monitor] Respiratory 15 14 19 Rate Blood Pressure 163/83 137/87 137/87 O2 Sat by Pulse 97 98 99 Oximetry 12/26/16 12/26/16 12/26/16 04:20 04:23 04:30 Temperature Pulse Rate 93 H 93 H 98 H Pulse Rate [ From Monitor] Respiratory 17 17 Rate Blood Pressure 116/72 116/72 O2 Sat by Pulse 98 99 Oximetry 12/26/16 12/26/16 12/26/16 05:00 05:18 05:30 Temperature Pulse Rate 93 H 90 101 H Pulse Rate [ From Monitor] Respiratory 14 15 Rate Blood Pressure 160/86 160/86 160/86 O2 Sat by Pulse 99 99 Oximetry 12/26/16 12/26/16 12/26/16 06:00 06:30 07:00 Temperature Pulse Rate 103 H 103 H 108 H Pulse Rate [ From Monitor] Respiratory 15 18 20 Rate Blood Pressure 160/86 133/91 140/88 O2 Sat by Pulse 98 98 97 Oximetry 12/26/16 12/26/16 12/26/16 07:30 08:00 08:30 Temperature 99.2 F Pulse Rate 108 H 106 H 108 H Pulse Rate [ 97 H From Monitor] Respiratory 20 24 20 Rate Blood Pressure 133/91 137/92 140/88 O2 Sat by Pulse 98 98 98 Oximetry 12/26/16 12/26/16 12/26/16 09:00 09:30 10:00 Temperature Pulse Rate 109 H 105 H 103 H Pulse Rate [ From Monitor] Respiratory 18 21 22 Rate Blood Pressure 140/88 122/87 148/82 O2 Sat by Pulse 99 98 98 Oximetry 12/26/16 12/26/16 12/26/16 10:15 10:30 11:00 Temperature Pulse Rate 105 H 106 H 101 H Pulse Rate [ From Monitor] Respiratory 23 23 Rate Blood Pressure 148/82 122/87 148/94 O2 Sat by Pulse 98 99 Oximetry 12/26/16 12/26/16 12/26/16 11:30 12:00 12:30 Temperature Pulse Rate 101 H 100 H 97 H Pulse Rate [ From Monitor] Respiratory 24 25 H 24 Rate Blood Pressure 148/94 152/98 152/98 O2 Sat by Pulse 98 99 98 Oximetry - General Appearance General appearance: well-developed, well-nourished, appears stated age, comatose EENT: ATNC, PERRL, mucous membranes dry Neck: no JVD Respiratory: Present: Decreased Breath Sounds Cardiology: regular, S1S2 Gastrointestinal: normoactive bowel sounds, obese Integumentary: no rash, other (no pitting edema ) - Lab 12/23/16 05:15 12/26/16 03:30 Most recent lab results Calcium 9.6 mg/dL (8.4-10.2) 12/26/16 03:30 Phosphorus 4.30 mg/dL (2.5-4.5) 12/25/16 04:38 Magnesium 1.70 mg/dL (1.7-2.3) 12/25/16 04:38
--- NOTE | 2016-12-26 14:38 | Progress Note ---
Assessment and Plan Imp: 1. UTI/bacteremia/sepsis 2. TAYA -> ATN 3. S/p CP arrest 4. Anoxic encephalopathy 5. S/p Trach 6. Morbid obesity 7. Acute respiratory failure, hypoxia 8. ? Ileus 9. Nephrolithiasis Rec: 1. ABX as per ID 2. T-piece trials daily; rest on PSV at night although may be able to do 24/7 Tpiece soon; return to [facility] prn only 3. Will need PEG at some point 4. Holding all sedation; neurology f/u 5. DVT PPx 6. For CT urogram 7. K repleted already 8. Guarded prognosis; agree w/ LTAC 9. Complex decision-making/patient No family present today. Subjective Date of service: 12/26/16 Principal diagnosis: Acute resp. failure Interval history: No events. Tolerating Tpiece. Was on PSV overnight. Opens eyes minimally, not following commands or answering questions. TFs on hold due to abd distension although no residuals and + BMs. Active Medications Acetaminophen (Tylenol) 650 mg PO Q4H PRN PRN Reason: Pain, Mild (1-3) Last Admin: 12/25/16 04:00 Dose: 650 mg Albumin Human (Alburx 25% (Albumin)) 12.5 gm IV DIPESH PRN PRN Reason: Hypotension Lipase/Protease/Amylase (Brunilda Lopes 10,500 Unit) 1 each FEEDTUBE PRN PRN PRN Reason: For Clogged Feeding Tube Artificial Tears (Isopto Tears 0.5%) 2 drops OU Q4H PRN PRN Reason: Dry Eye(s) Last Admin: 12/16/16 05:25 Dose: 2 drops Aspirin (Aspirin) 325 mg PO QDAY [facility] Last Admin: 12/26/16 10:15 Dose: 325 mg Bisacodyl (Dulcolax) 10 mg TN QDAY PRN PRN Reason: Constipation Carvedilol (Coreg) 3.125 mg PO BID [facility] Last Admin: 12/26/16 10:15 Dose: 3.125 mg Dextrose (D50w (25gm)) 50 ml IV PRN PRN PRN Reason: Hypoglycemia Last Admin: 12/15/16 10:25 Dose: 50 ml Famotidine (Pepcid) 20 mg PO DAILY [facility] Last Admin: 12/26/16 10:15 Dose: 20 mg Heparin Sodium (Porcine) (Heparin) 5,000 unit SUB-Q Q8HR [facility] Last Admin: 12/26/16 05:18 Dose: 5,000 unit Heparin Sodium (Porcine) (Heparin) 5,000 unit IV DIPESH PRN PRN Reason: dwell Last Admin: 12/22/16 17:54 Dose: 5,000 unit Hydralazine HCl (Apresoline) 5 mg IV Q6H PRN PRN Reason: Keep SBP between 160-185 mm Hg Last Admin: 12/26/16 05:18 Dose: 5 mg Cefepime HCl (Maxipime/Ns 1 Gm/100 Ml) 1 gm in 100 mls @ 200 mls/hr IV Q24HR LENARD PRN Reason: Protocol Last Admin: 12/26/16 10:17 Dose: 200 mls/hr Fluconazole (Diflucan) 200 mg in 100 mls @ 100 mls/hr IV Q24HR [facility] Last Admin: 12/26/16 10:14 Dose: 100 mls/hr Sodium Chloride (Nacl 0.9%) 100 mls @ 999 mls/hr IV DIPESH PRN PRN Reason: Hypotension Vancomycin HCl (Vancomycin/Ns 1 Gm/250 Ml) 1 gm in 250 mls @ 167.007 mls/hr IV ONCE ONE Stop: 12/26/16 17:29 Insulin Aspart (Novolog) 0 units SUB-Q Q6HR [facility] PRN Reason: Protocol Last Admin: 12/26/16 13:18 Dose: 3 units Insulin Detemir (Levemir) 17 units SUB-Q DAILY [facility] Last Admin: 12/26/16 10:15 Dose: 17 units Magnesium Hydroxide (Milk Of Magnesia) 30 ml PO Q4H PRN PRN Reason: Constipation Ondansetron HCl (Zofran) 4 mg IV Q8H PRN PRN Reason: N/V unrelieved by Reglan Simple Syrup (Simple Syrup) 15 ml FEEDTUBE PRN PRN PRN Reason: Hypoglycemia Simple Syrup (Simple Syrup) 30 ml FEEDTUBE PRN PRN PRN Reason: Hypoglycemia Simvastatin (Zocor) 20 mg PO QHS [facility] Last Admin: 12/25/16 23:24 Dose: 20 mg Sodium Bicarbonate (Sodium Bicarbonate) 325 mg FEEDTUBE PRN PRN PRN Reason: For Clogged Feeding Tube Sodium Chloride (Sodium Chloride Flush Syringe 10 Ml) 10 ml IV PRN PRN PRN Reason: LINE FLUSH Vancomycin HCl (Vancomycin Pharmacy To Dose) 1 each IV PKCONSULT LENARD Objective Vital Signs - 12hr 12/26/16 12/26/16 12/26/16 03:00 03:30 04:00 Temperature 99.4 F Pulse Rate 98 H 100 H 98 H Pulse Rate [ From Monitor] Respiratory 15 14 19 Rate Blood Pressure 163/83 137/87 137/87 O2 Sat by Pulse 97 98 99 Oximetry 12/26/16 12/26/16 12/26/16 04:20 04:23 04:30 Temperature Pulse Rate 93 H 93 H 98 H Pulse Rate [ From Monitor] Respiratory 17 17 Rate Blood Pressure 116/72 116/72 O2 Sat by Pulse 98 99 Oximetry 12/26/16 12/26/16 12/26/16 05:00 05:18 05:30 Temperature Pulse Rate 93 H 90 101 H Pulse Rate [ From Monitor] Respiratory 14 15 Rate Blood Pressure 160/86 160/86 160/86 O2 Sat by Pulse 99 99 Oximetry 12/26/16 12/26/16 12/26/16 06:00 06:30 07:00 Temperature Pulse Rate 103 H 103 H 108 H Pulse Rate [ From Monitor] Respiratory 15 18 20 Rate Blood Pressure 160/86 133/91 140/88 O2 Sat by Pulse 98 98 97 Oximetry 12/26/16 12/26/16 12/26/16 07:30 08:00 08:30 Temperature 99.2 F Pulse Rate 108 H 106 H 108 H Pulse Rate [ 97 H From Monitor] Respiratory 20 24 20 Rate Blood Pressure 133/91 137/92 140/88 O2 Sat by Pulse 98 98 98 Oximetry 12/26/16 12/26/16 12/26/16 09:00 09:30 10:00 Temperature Pulse Rate 109 H 105 H 103 H Pulse Rate [ From Monitor] Respiratory 18 21 22 Rate Blood Pressure 140/88 122/87 148/82 O2 Sat by Pulse 99 98 98 Oximetry 12/26/16 12/26/16 12/26/16 10:15 10:30 11:00 Temperature Pulse Rate 105 H 106 H 101 H Pulse Rate [ From Monitor] Respiratory 23 23 Rate Blood Pressure 148/82 122/87 148/94 O2 Sat by Pulse 98 99 Oximetry 12/26/16 12/26/1612/26/17 11:30 12:00 12:30 Temperature 101.1 F H Pulse Rate 101 H 100 H 97 H Pulse Rate [ From Monitor] Respiratory 24 25 H 24 Rate Blood Pressure 148/94 152/98 152/98 O2 Sat by Pulse 98 99 98 Oximetry Constitutional: other (eyes open, nothing purposeful) Eyes: non-icteric ENT: oropharynx moist, other (trach midline) Neck: supple, other (large in circumference) Effort: normal Ascultation: Bilateral: clear Cardiovascular: regular rate and rhythm (no mrg) Gastrointestinal: hypoactive bowel sounds, other (obese, distended) Integumentary: normal Extremities: no cyanosis, no edema, pink and warm Neurologic: other (flaccid extremities, not following commands; ? some posturing RUE; eyes are open but not tracking) Psychiatric: other (not able to assess) CBC and BMP: 12/23/16 05:15 12/26/16 03:30 ABG, PT/INR, D-dimer: ABG POC ABG pH 7.433 (7.35-7.45) 12/23/16 11:54 POC ABG pCO2 39.9 (35-45) 12/23/16 11:54 POC ABG pO2 187 (80-105) H 12/23/16 11:54 POC ABG HCO3 26.7 12/23/16 11:54 POC ABG Total CO2 28 12/23/16 11:54 POC ABG O2 Sat 100 12/23/16 11:54 PT/INR, D-dimer PT 17.6 Sec. (12.2-14.9) H 12/16/16 06:30 INR 1.45 (0.87-1.13) H 12/16/16 06:30 Abnormal lab findings: Abnormal Labs 12/12/16 12/12/16 12/12/16 08:06 12:27 15:23 WBC RBC Hgb Hct Plt Count Lymph % (Auto) [place] % (Auto) Lymph # Seg Neutrophils % Seg Neutrophils # PT INR POC ABG pH POC ABG pCO2 POC ABG pO2 Sodium Potassium Chloride Carbon Dioxide BUN Creatinine Glucose POC Glucose 299 H 281 H Lactic Acid 4.20 H* Calcium Phosphorus Magnesium AST Alkaline Phosphatase C-Reactive Protein Total Protein Albumin Ijucr-6-Laqdkmrmf Daypy-8-Joudxbpmw Beta Globulins Gamma Globulins PEP Interpretation Triglycerides LDL Cholesterol Direct HDL Cholesterol Urine WBC (Auto) RYLAN Screen RYLAN Titer Complement C3 Complement C4 Miscellaneous Test 12/12/16 12/12/16 12/12/16 16:53 19:51 20:43 WBC RBC Hgb Hct Plt Count Lymph % (Auto) [place] % (Auto) Lymph # Seg Neutrophils % Seg Neutrophils # PT INR POC ABG pH POC ABG pCO2 POC ABG pO2 Sodium Potassium Chloride Carbon Dioxide BUN Creatinine Glucose POC Glucose 272 H 238 H Lactic Acid 2.90 H* Calcium Phosphorus Magnesium AST Alkaline Phosphatase C-Reactive Protein Total Protein Albumin Nabdi-2-Oomutgjxj Trnjm-2-Yesbxmtrv Beta Globulins Gamma Globulins PEP Interpretation Triglycerides LDL Cholesterol Direct HDL Cholesterol Urine WBC (Auto) RYLAN Screen RYLAN Titer Complement C3 Complement C4 Miscellaneous Test 12/12/16 12/13/16 12/13/16 21:30 03:39 03:39 WBC RBC Hgb Hct Plt Count 118 L Lymph % (Auto) 7.4 L [place] % (Auto) 7.6 H Lymph # 0.7 L Seg Neutrophils % 84.7 H Seg Neutrophils # 8.4 H PT INR POC ABG pH POC ABG pCO2 POC ABG pO2 Sodium 133 L Potassium Chloride 96.5 L Carbon Dioxide 18 L BUN 49 H Creatinine 3.1 H D Glucose 173 H POC Glucose Lactic Acid Calcium 8.3 L D Phosphorus Magnesium 1.20 L AST Alkaline Phosphatase C-Reactive Protein Total Protein Albumin 2.6 L Fbecy-2-Ylyhkuwrw Axnka-9-Pwestwapp Beta Globulins Gamma Globulins PEP Interpretation Triglycerides 166 H LDL Cholesterol Direct 24 L HDL Cholesterol 9 L Urine WBC (Auto) > 182.0 H RYLAN Screen RYLAN Titer Complement C3 Complement C4 Miscellaneous Test 12/13/16 12/13/16 12/13/16 07:41 11:53 17:23 WBC RBC Hgb Hct Plt Count Lymph % (Auto) [place] % (Auto) Lymph # Seg Neutrophils % Seg Neutrophils # PT INR POC ABG pH POC ABG pCO2 POC ABG pO2 Sodium Potassium Chloride Carbon Dioxide BUN Creatinine Glucose POC Glucose 222 H 221 H 247 H Lactic Acid Calcium Phosphorus Magnesium AST Alkaline Phosphatase C-Reactive Protein Total Protein Albumin Xcbod-8-Mvkzummud Olrel-0-Ixszgfwmb Beta Globulins Gamma Globulins PEP Interpretation Triglycerides LDL Cholesterol Direct HDL Cholesterol Urine WBC (Auto) RYLAN Screen RYLAN Titer Complement C3 Complement C4 Miscellaneous Test 12/13/16 12/14/16 12/14/16 21:29 03:35 03:35 WBC RBC 3.42 L Hgb Hct Plt Count 86 L Lymph % (Auto) 6.1 L [place] % (Auto) Lymph # 0.3 L Seg Neutrophils % 87.3 H Seg Neutrophils # PT INR POC ABG pH POC ABG pCO2 POC ABG pO2 Sodium 133 L Potassium 5.1 H Chloride 96.2 L Carbon Dioxide 17 L BUN 63 H Creatinine 4.2 H Glucose 136 H POC Glucose 185 H Lactic Acid Calcium 8.1 L Phosphorus Magnesium 1.30 L AST Alkaline Phosphatase C-Reactive Protein Total Protein Albumin Kahpo-1-Efbhuzrbr Wxuax-0-Iqxqffclo Beta Globulins Gamma Globulins PEP Interpretation Triglycerides LDL Cholesterol Direct HDL Cholesterol Urine WBC (Auto) RYLAN Screen RYLAN Titer Complement C3 Complement C4 Miscellaneous Test 12/14/16 12/14/16 12/14/16 08:32 09:00 09:00 WBC RBC Hgb Hct Plt Count Lymph % (Auto) [place] % (Auto) Lymph # Seg Neutrophils % Seg Neutrophils # PT INR POC ABG pH POC ABG pCO2 POC ABG pO2 Sodium Potassium Chloride Carbon Dioxide BUN Creatinine Glucose POC Glucose 152 H Lactic Acid Calcium Phosphorus Magnesium AST Alkaline Phosphatase C-Reactive Protein Total Protein Albumin Owere-4-Achpvxlhc Gxvlv-7-Namgnibnp Beta Globulins Gamma Globulins PEP Interpretation Triglycerides LDL Cholesterol Direct HDL Cholesterol Urine WBC (Auto) RYLAN Screen Positive H RYLAN Titer 1:320 H Complement C3 206 H Complement C4 Miscellaneous Test 12/14/16 12/14/16 12/14/16 09:00 09:00 11:50 WBC RBC Hgb Hct Plt Count Lymph % (Auto) [place] % (Auto) Lymph # Seg Neutrophils % Seg Neutrophils # PT INR POC ABG pH POC ABG pCO2 POC ABG pO2 Sodium Potassium Chloride Carbon Dioxide BUN Creatinine Glucose POC Glucose 168 H Lactic Acid Calcium Phosphorus Magnesium AST Alkaline Phosphatase C-Reactive Protein Total Protein Albumin 2.6 L Bebea-0-Krlzqecpd 0.7 H Lksvp-4-Soitchcqd 1.0 H Beta Globulins 0.7 H Gamma Globulins 0.7 L PEP Interpretation see below H Triglycerides LDL Cholesterol Direct HDL Cholesterol Urine WBC (Auto) RYLAN Screen RYLAN Titer Complement C3 Complement C4 56 H Miscellaneous Test 12/14/16 12/15/16 12/15/16 17:35 04:35 04:35 WBC 4.1 L RBC 3.39 L Hgb Hct Plt Count 84 L Lymph % (Auto) 8.8 L [place] % (Auto) Lymph # 0.4 L Seg Neutrophils % 83.6 H Seg Neutrophils # PT INR POC ABG pH POC ABG pCO2 POC ABG pO2 Sodium Potassium 6.0 H Chloride Carbon Dioxide 15 L BUN 79 H Creatinine 5.0 H Glucose POC Glucose 154 H Lactic Acid Calcium 8.0 L Phosphorus 6.70 H D Magnesium AST Alkaline Phosphatase C-Reactive Protein Total Protein Albumin Bgmis-5-Wauwsdbnb Hqazz-6-Qnphvyspp Beta Globulins Gamma Globulins PEP Interpretation Triglycerides LDL Cholesterol Direct HDL Cholesterol Urine WBC (Auto) RYLAN Screen RYLAN Titer Complement C3 Complement C4 Miscellaneous Test 12/15/16 12/15/16 12/15/16 07:45 08:13 15:20 WBC RBC Hgb Hct Plt Count Lymph % (Auto) [place] % (Auto) Lymph # Seg Neutrophils % Seg Neutrophils # PT INR POC ABG pH 7.156 L 7.228 L POC ABG pCO2 48.7 H POC ABG pO2 232 H Sodium Potassium Chloride Carbon Dioxide BUN Creatinine Glucose POC Glucose 113 H Lactic Acid Calcium Phosphorus Magnesium AST Alkaline Phosphatase C-Reactive Protein Total Protein Albumin Qksqr-0-Ankgoplpr Tskyl-9-Vsyvqxtky Beta Globulins Gamma Globulins PEP Interpretation Triglycerides LDL Cholesterol Direct HDL Cholesterol Urine WBC (Auto) RYLAN Screen RYLAN Titer Complement C3 Complement C4 Miscellaneous Test 12/15/16 12/15/16 12/15/16 23:53 Unknown Unknown WBC RBC 3.19 L Hgb 9.6 L Hct 29.8 L Plt Count 108 L Lymph % (Auto) 6.5 L [place] % (Auto) Lymph # 0.4 L Seg Neutrophils % 87.1 H Seg Neutrophils # PT 16.2 H INR 1.31 H POC ABG pH POC ABG pCO2 POC ABG pO2 Sodium Potassium Chloride Carbon Dioxide BUN Creatinine Glucose POC Glucose 232 H Lactic Acid Calcium Phosphorus Magnesium AST Alkaline Phosphatase C-Reactive Protein Total Protein Albumin Mzeld-1-Gldkaitwz Lilox-3-Xyrucsgtx Beta Globulins Gamma Globulins PEP Interpretation Triglycerides LDL Cholesterol Direct HDL Cholesterol Urine WBC (Auto) RYLAN Screen RYLAN Titer Complement C3 Complement C4 Miscellaneous Test 12/15/16 12/16/16 12/16/16 Unknown 04:58 05:39 WBC RBC Hgb Hct Plt Count Lymph % (Auto) [place] % (Auto) Lymph # Seg Neutrophils % Seg Neutrophils # PT INR POC ABG pH POC ABG pCO2 POC ABG pO2 143 H Sodium Potassium Chloride Carbon Dioxide 16 L BUN 85 H Creatinine 4.9 H Glucose 205 H POC Glucose 201 H Lactic Acid Calcium 8.2 L Phosphorus Magnesium AST 77 H Alkaline Phosphatase 136 H C-Reactive Protein Total Protein Albumin 2.3 L Hqlqy-2-Sailwtblo Pldku-5-Hmfvblhig Beta Globulins Gamma Globulins PEP Interpretation Triglycerides LDL Cholesterol Direct HDL Cholesterol Urine WBC (Auto) RYLAN Screen RYLAN Titer Complement C3 Complement C4 Miscellaneous Test 12/16/16 12/16/16 12/16/16 06:30 06:30 06:30 WBC 4.0 L RBC 3.23 L Hgb 9.6 L Hct 29.8 L Plt Count 110 L Lymph % (Auto) 11.3 L [place] % (Auto) Lymph # 0.5 L Seg Neutrophils % 81.2 H Seg Neutrophils # PT 17.6 H INR 1.45 H POC ABG pH POC ABG pCO2 POC ABG pO2 Sodium Potassium Chloride Carbon Dioxide 20 L BUN 57 H Creatinine 3.6 H Glucose 176 H POC Glucose Lactic Acid Calcium 8.1 L Phosphorus 4.90 H D Magnesium 1.60 L AST 46 H Alkaline Phosphatase 137 H C-Reactive Protein Total Protein Albumin 2.3 L Obkvx-7-Fhduabclm Rybpm-6-Glhkatlwl Beta Globulins Gamma Globulins PEP Interpretation Triglycerides LDL Cholesterol Direct HDL Cholesterol Urine WBC (Auto) RYLAN Screen RYLAN Titer Complement C3 Complement C4 Miscellaneous Test 12/16/16 12/16/16 12/16/16 11:16 15:30 17:23 WBC RBC Hgb Hct Plt Count Lymph % (Auto) [place] % (Auto) Lymph # Seg Neutrophils % Seg Neutrophils # PT INR POC ABG pH POC ABG pCO2 POC ABG pO2 Sodium Potassium Chloride Carbon Dioxide BUN Creatinine Glucose POC Glucose 194 H 209 H Lactic Acid Calcium Phosphorus Magnesium AST 43 H Alkaline Phosphatase 156 H C-Reactive Protein Total Protein 5.6 L Albumin 2.4 L Jjvch-9-Awbgbasoc Iubcg-2-Ctepihtoc Beta Globulins Gamma Globulins PEP Interpretation Triglycerides LDL Cholesterol Direct HDL Cholesterol Urine WBC (Auto) RYLAN Screen RYLAN Titer Complement C3 Complement C4 Miscellaneous Test 12/16/16 12/17/16 12/17/16 23:35 03:38 05:18 WBC RBC Hgb Hct Plt Count Lymph % (Auto) [place] % (Auto) Lymph # Seg Neutrophils % Seg Neutrophils # PT INR POC ABG pH 7.485 H POC ABG pCO2 POC ABG pO2 Sodium Potassium Chloride Carbon Dioxide BUN Creatinine Glucose POC Glucose 179 H 201 H Lactic Acid Calcium Phosphorus Magnesium AST Alkaline Phosphatase C-Reactive Protein Total Protein Albumin Qewsv-7-Deborlena Gsogb-6-Uozxdqgmt Beta Globulins Gamma Globulins PEP Interpretation Triglycerides LDL Cholesterol Direct HDL Cholesterol Urine WBC (Auto) RYLAN Screen RYLAN Titer Complement C3 Complement C4 Miscellaneous Test 12/17/16 12/17/16 12/17/16 07:24 12:00 13:58 WBC RBC 3.02 L Hgb 9.2 L Hct 27.2 L Plt Count 100 L Lymph % (Auto) [place] % (Auto) 7.9 H Lymph # 0.8 L Seg Neutrophils % 75.0 H Seg Neutrophils # PT INR POC ABG pH POC ABG pCO2 POC ABG pO2 Sodium Potassium 3.3 L Chloride Carbon Dioxide BUN 50 H Creatinine 3.1 H Glucose 181 H POC Glucose 176 H Lactic Acid Calcium Phosphorus Magnesium AST Alkaline Phosphatase 155 H C-Reactive Protein Total Protein Albumin 2.2 L Frsde-3-Ayrohmzps Teomj-0-Jfejcowcs Beta Globulins Gamma Globulins PEP Interpretation Triglycerides LDL Cholesterol Direct HDL Cholesterol Urine WBC (Auto) RYLAN Screen RYLAN Titer Complement C3 Complement C4 Miscellaneous Test 12/17/16 12/18/16 12/18/16 17:11 00:05 05:40 WBC RBC Hgb Hct Plt Count Lymph % (Auto) [place] % (Auto) Lymph # Seg Neutrophils % Seg Neutrophils # PT INR POC ABG pH POC ABG pCO2 POC ABG pO2 Sodium Potassium Chloride Carbon Dioxide BUN Creatinine Glucose POC Glucose 152 H 155 H 170 H Lactic Acid Calcium Phosphorus Magnesium AST Alkaline Phosphatase C-Reactive Protein Total Protein Albumin Nceze-9-Hmbgprlng Iidyj-0-Dmechzhts Beta Globulins Gamma Globulins PEP Interpretation Triglycerides LDL Cholesterol Direct HDL Cholesterol Urine WBC (Auto) RYLAN Screen RYLAN Titer Complement C3 Complement C4 Miscellaneous Test 12/18/16 12/18/16 12/18/16 07:52 12:21 15:10 WBC RBC Hgb Hct Plt Count Lymph % (Auto) [place] % (Auto) Lymph # Seg Neutrophils % Seg Neutrophils # PT INR POC ABG pH POC ABG pCO2 POC ABG pO2 Sodium Potassium 2.9 L* Chloride Carbon Dioxide BUN 69 H Creatinine 4.5 H Glucose 150 H POC Glucose 165 H 130 H Lactic Acid Calcium Phosphorus Magnesium AST Alkaline Phosphatase C-Reactive Protein Total Protein Albumin Zigoc-3-Cugnthnjy Rvwqh-1-Myfdcjiqp Beta Globulins Gamma Globulins PEP Interpretation Triglycerides LDL Cholesterol Direct HDL Cholesterol Urine WBC (Auto) RYLAN Screen RYLAN Titer Complement C3 Complement C4 Miscellaneous Test 12/18/16 12/18/16 12/19/16 18:43 23:33 03:04 WBC RBC Hgb Hct Plt Count Lymph % (Auto) [place] % (Auto) Lymph # Seg Neutrophils % Seg Neutrophils # PT INR POC ABG pH 7.455 H POC ABG pCO2 POC ABG pO2 Sodium Potassium Chloride Carbon Dioxide BUN Creatinine Glucose POC Glucose 176 H 174 H Lactic Acid Calcium Phosphorus Magnesium AST Alkaline Phosphatase C-Reactive Protein Total Protein Albumin Egsvb-6-Mrwzymupz Bsrvs-3-Grudesrxa Beta Globulins Gamma Globulins PEP Interpretation Triglycerides LDL Cholesterol Direct HDL Cholesterol Urine WBC (Auto) RYLAN Screen RYLAN Titer Complement C3 Complement C4 Miscellaneous Test 12/19/16 12/19/16 12/19/16 05:47 10:40 10:40 WBC RBC 3.06 L Hgb 9.2 L Hct 28.0 L Plt Count 126 L Lymph % (Auto) [place] % (Auto) Lymph # Seg Neutrophils % Seg Neutrophils # PT INR POC ABG pH POC ABG pCO2 POC ABG pO2 Sodium Potassium 3.0 L Chloride Carbon Dioxide BUN 55 H Creatinine 3.4 H Glucose 161 H POC Glucose 160 H Lactic Acid Calcium Phosphorus 5.10 H Magnesium AST Alkaline Phosphatase C-Reactive Protein Total Protein Albumin Akgun-6-Cznajgjct Jenil-5-Rirdxoyaw Beta Globulins Gamma Globulins PEP Interpretation Triglycerides LDL Cholesterol Direct HDL Cholesterol Urine WBC (Auto) RYLAN Screen RYLAN Titer Complement C3 Complement C4 Miscellaneous Test 12/19/16 12/19/16 12/20/16 13:00 18:04 00:04 WBC RBC Hgb Hct Plt Count Lymph % (Auto) [place] % (Auto) Lymph # Seg Neutrophils % Seg Neutrophils # PT INR POC ABG pH POC ABG pCO2 POC ABG pO2 Sodium Potassium Chloride Carbon Dioxide BUN Creatinine Glucose POC Glucose 173 H 129 H 152 H Lactic Acid Calcium Phosphorus Magnesium AST Alkaline Phosphatase C-Reactive Protein Total Protein Albumin Zqkra-0-Zfrcwloil Sltqj-6-Qqemwwqnm Beta Globulins Gamma Globulins PEP Interpretation Triglycerides LDL Cholesterol Direct HDL Cholesterol Urine WBC (Auto) RYLAN Screen RYLAN Titer Complement C3 Complement C4 Miscellaneous Test 12/20/16 12/20/16 12/20/16 05:34 05:45 10:47 WBC RBC Hgb Hct Plt Count Lymph % (Auto) [place] % (Auto) Lymph # Seg Neutrophils % Seg Neutrophils # PT INR POC ABG pH POC ABG pCO2 POC ABG pO2 110 H Sodium Potassium 3.4 L Chloride Carbon Dioxide BUN 72 H Creatinine 4.0 H Glucose 130 H POC Glucose 175 H Lactic Acid Calcium Phosphorus Magnesium AST Alkaline Phosphatase C-Reactive Protein Total Protein Albumin Uybyh-6-Tamgxxhhv Upluv-2-Eskljbraf Beta Globulins Gamma Globulins PEP Interpretation Triglycerides LDL Cholesterol Direct HDL Cholesterol Urine WBC (Auto) RYLAN Screen RYLAN Titer Complement C3 Complement C4 Miscellaneous Test 12/20/16 12/20/16 12/20/16 11:56 18:14 23:43 WBC RBC Hgb Hct Plt Count Lymph % (Auto) [place] % (Auto) Lymph # Seg Neutrophils % Seg Neutrophils # PT INR POC ABG pH POC ABG pCO2 POC ABG pO2 Sodium Potassium Chloride Carbon Dioxide BUN Creatinine Glucose POC Glucose 130 H 142 H 193 H Lactic Acid Calcium Phosphorus Magnesium AST Alkaline Phosphatase C-Reactive Protein Total Protein Albumin Qardj-3-Jdctvwwzr Mkdvq-0-Idepdwlot Beta Globulins Gamma Globulins PEP Interpretation Triglycerides LDL Cholesterol Direct HDL Cholesterol Urine WBC (Auto) RYLAN Screen RYLAN Titer Complement C3 Complement C4 Miscellaneous Test 12/21/16 12/21/16 12/21/16 05:10 08:32 12:29 WBC RBC Hgb Hct Plt Count Lymph % (Auto) [place] % (Auto) Lymph # Seg Neutrophils % Seg Neutrophils # PT INR POC ABG pH POC ABG pCO2 POC ABG pO2 Sodium 146 H Potassium Chloride Carbon Dioxide BUN 85 H Creatinine 4.3 H Glucose 184 H POC Glucose 204 H 214 H Lactic Acid Calcium Phosphorus Magnesium AST Alkaline Phosphatase C-Reactive Protein Total Protein Albumin Mnvgu-8-Vsszqztuf Idjaa-9-Nhshjcwap Beta Globulins Gamma Globulins PEP Interpretation Triglycerides LDL Cholesterol Direct HDL Cholesterol Urine WBC (Auto) RYLAN Screen RYLAN Titer Complement C3 Complement C4 Miscellaneous Test 12/21/16 12/21/16 12/22/16 18:06 23:31 05:38 WBC RBC Hgb Hct Plt Count Lymph % (Auto) [place] % (Auto) Lymph # Seg Neutrophils % Seg Neutrophils # PT INR POC ABG pH POC ABG pCO2 POC ABG pO2 Sodium Potassium Chloride Carbon Dioxide BUN Creatinine Glucose POC Glucose 184 H 191 H 182 H Lactic Acid Calcium Phosphorus Magnesium AST Alkaline Phosphatase C-Reactive Protein Total Protein Albumin Kzrwj-8-Gvnqfnyqy Gaans-3-Dksbinjuh Beta Globulins Gamma Globulins PEP Interpretation Triglycerides LDL Cholesterol Direct HDL Cholesterol Urine WBC (Auto) RYLAN Screen RYLAN Titer Complement C3 Complement C4 Miscellaneous Test 12/22/16 12/22/16 12/22/16 06:30 12:23 15:07 WBC RBC Hgb Hct Plt Count Lymph % (Auto) [place] % (Auto) Lymph # Seg Neutrophils % Seg Neutrophils # PT INR POC ABG pH POC ABG pCO2 POC ABG pO2 Sodium 148 H Potassium 3.3 L Chloride Carbon Dioxide BUN 87 H Creatinine 4.4 H Glucose 186 H POC Glucose 205 H Lactic Acid Calcium Phosphorus Magnesium AST Alkaline Phosphatase C-Reactive Protein 12.10 H Total Protein Albumin Zvrzw-5-Kxinwyjmm Ioeka-0-Jocorhpna Beta Globulins Gamma Globulins PEP Interpretation Triglycerides LDL Cholesterol Direct HDL Cholesterol Urine WBC (Auto) RYLAN Screen RYLAN Titer Complement C3 Complement C4 Miscellaneous Test 12/22/16 12/22/16 12/23/16 16:25 22:49 05:15 WBC RBC Hgb Hct Plt Count Lymph % (Auto) [place] % (Auto) Lymph # Seg Neutrophils % Seg Neutrophils # PT INR POC ABG pH POC ABG pCO2 POC ABG pO2 Sodium Potassium 3.5 L Chloride Carbon Dioxide BUN 49 H Creatinine 2.6 H Glucose 189 H POC Glucose 187 H 195 H Lactic Acid Calcium Phosphorus Magnesium AST Alkaline Phosphatase C-Reactive Protein Total Protein Albumin Kgofz-1-Muptmkizn Gisaw-9-Vhbysvljw Beta Globulins Gamma Globulins PEP Interpretation Triglycerides LDL Cholesterol Direct HDL Cholesterol Urine WBC (Auto) RYLAN Screen RYLAN Titer Complement C3 Complement C4 Miscellaneous Test 12/23/16 12/23/16 12/23/16 05:15 06:00 06:00 WBC RBC 3.05 L Hgb 9.1 L Hct 27.9 L Plt Count Lymph % (Auto) [place] % (Auto) Lymph # Seg Neutrophils % 77.5 H Seg Neutrophils # 8.1 H PT INR POC ABG pH POC ABG pCO2 POC ABG pO2 Sodium Potassium Chloride Carbon Dioxide BUN Creatinine Glucose POC Glucose 209 H Lactic Acid Calcium Phosphorus Magnesium AST Alkaline Phosphatase C-Reactive Protein Total Protein Albumin Ozhtr-5-Uldjdpffw Htaph-8-Ycdbuywbk Beta Globulins Gamma Globulins PEP Interpretation Triglycerides LDL Cholesterol Direct HDL Cholesterol Urine WBC (Auto) RYLAN Screen RYLAN Titer Complement C3 Complement C4 Miscellaneous Test Flexitest 1 H 12/23/16 12/23/16 12/23/16 11:54 12:05 17:31 WBC RBC Hgb Hct Plt Count Lymph % (Auto) [place] % (Auto) Lymph # Seg Neutrophils % Seg Neutrophils # PT INR POC ABG pH POC ABG pCO2 POC ABG pO2 187 H Sodium Potassium Chloride Carbon Dioxide BUN Creatinine Glucose POC Glucose 231 H 233 H Lactic Acid Calcium Phosphorus Magnesium AST Alkaline Phosphatase C-Reactive Protein Total Protein Albumin Huvcr-1-Yamuyiips Edlug-4-Tdouygknc Beta Globulins Gamma Globulins PEP Interpretation Triglycerides LDL Cholesterol Direct HDL Cholesterol Urine WBC (Auto) RYLAN Screen RYLAN Titer Complement C3 Complement C4 Miscellaneous Test 12/23/16 12/24/16 12/24/16 23:41 05:00 05:00 WBC RBC Hgb Hct Plt Count Lymph % (Auto) Glascock % (Auto) Lymph # Seg Neutrophils % Seg Neutrophils # PT INR POC ABG pH POC ABG pCO2 POC ABG pO2 Sodium Potassium 2.7 L* D Chloride Carbon Dioxide BUN 63 H Creatinine 2.8 H Glucose 284 H POC Glucose 283 H Lactic Acid Calcium Phosphorus Magnesium AST Alkaline Phosphatase C-Reactive Protein Total Protein Albumin 2.7 L Equde-1-Sfbvcpjlu Qpqfl-8-Sazggraiu Beta Globulins Gamma Globulins PEP Interpretation Triglycerides LDL Cholesterol Direct HDL Cholesterol Urine WBC (Auto) RYLAN Screen RYLAN Titer Complement C3 Complement C4 Miscellaneous Test 12/24/16 12/24/16 12/24/16 05:08 11:53 17:40 WBC RBC Hgb Hct Plt Count Lymph % (Auto) [place] % (Auto) Lymph # Seg Neutrophils % Seg Neutrophils # PT INR POC ABG pH POC ABG pCO2 POC ABG pO2 Sodium Potassium Chloride Carbon Dioxide BUN Creatinine Glucose POC Glucose 312 H 236 H 236 H Lactic Acid Calcium Phosphorus Magnesium AST Alkaline Phosphatase C-Reactive Protein Total Protein Albumin Dprxu-7-Qdpiracss Dbevd-2-Fhuqvawhf Beta Globulins Gamma Globulins PEP Interpretation Triglycerides LDL Cholesterol Direct HDL Cholesterol Urine WBC (Auto) RYLAN Screen RYLAN Titer Complement C3 Complement C4 Miscellaneous Test 12/24/16 12/25/16 12/25/16 23:47 04:38 05:11 WBC RBC Hgb Hct Plt Count Lymph % (Auto) Glascock % (Auto) Lymph # Seg Neutrophils % Seg Neutrophils # PT INR POC ABG pH POC ABG pCO2 POC ABG pO2 Sodium 147 H Potassium 2.8 L* Chloride 109.9 H Carbon Dioxide 20 L BUN 64 H Creatinine 2.8 H Glucose 243 H POC Glucose 280 H 254 H Lactic Acid Calcium Phosphorus Magnesium AST Alkaline Phosphatase C-Reactive Protein Total Protein Albumin 2.7 L Hglgw-9-Tpkbkfwta Mjodm-2-Ppbshmkak Beta Globulins Gamma Globulins PEP Interpretation Triglycerides LDL Cholesterol Direct HDL Cholesterol Urine WBC (Auto) RYLAN Screen RYLAN Titer Complement C3 Complement C4 Miscellaneous Test 12/25/16 12/25/16 12/25/16 10:08 11:35 18:16 WBC RBC Hgb Hct Plt Count Lymph % (Auto) [place]ock % (Auto) Lymph # Seg Neutrophils % Seg Neutrophils # PT INR POC ABG pH POC ABG pCO2 POC ABG pO2 Sodium Potassium Chloride Carbon Dioxide BUN Creatinine Glucose POC Glucose 252 H 253 H 230 H Lactic Acid Calcium Phosphorus Magnesium AST Alkaline Phosphatase C-Reactive Protein Total Protein Albumin Dkaoq-2-Rekyargfd Arcbu-5-Ykkbtqinj Beta Globulins Gamma Globulins PEP Interpretation Triglycerides LDL Cholesterol Direct HDL Cholesterol Urine WBC (Auto) RYLAN Screen RYLAN Titer Complement C3 Complement C4 Miscellaneous Test 12/26/16 12/26/16 12/26/16 00:00 03:30 05:42 WBC RBC Hgb Hct Plt Count Lymph % (Auto) [place]ock % (Auto) Lymph # Seg Neutrophils % Seg Neutrophils # PT INR POC ABG pH POC ABG pCO2 POC ABG pO2 Sodium 149 H Potassium 2.6 L* Chloride 113.0 H Carbon Dioxide 20 L BUN 61 H Creatinine 2.6 H Glucose 182 H POC Glucose 177 H 183 H Lactic Acid Calcium Phosphorus Magnesium AST 46 H Alkaline Phosphatase C-Reactive Protein Total Protein Albumin 2.7 L Rruhy-7-Akdzzuskx Hrgzt-5-Exscxouhn Beta Globulins Gamma Globulins PEP Interpretation Triglycerides LDL Cholesterol Direct HDL Cholesterol Urine WBC (Auto) RYLAN Screen RYLAN Titer Complement C3 Complement C4 Miscellaneous Test Chest x-ray: report reviewed, image reviewed
[2016-12-26] MEDS ORDERED: VANCOMYCIN/NS 1 GM/250 ML 1 GM/250 ML BAG IV ONE (16:00)
[2016-12-26] MEDS ORDERED: NACL ONE (16:35)
--- NOTE | 2016-12-26 18:18 | Progress Note ---
Assessment and Plan Assessment and plan: 56-year-old woman with a past medical history of kgf-utaefdc-umfsbsplu diabetes , hypertension, chronic intermittent left middle toe infection presented to the hospital with right arm weakness and slurred speech. Patient also has history of frequent falls, chronic left knee pain and osteoarthritis and was planned for knee replacement. She was admitted to the hospital for stroke workup, she was found to have acute kidney injury on admission. Her kidney function continued to worsen, she was planned for CT-guided kidney biopsy on 12/15, but while she was at CT scan, she had an episode of cardiac arrest, she received CPR , unfortunately she had a very difficult airway multiple sclerosis for attempts were tried after which she had an emergency cricothyroidotomy. She most likely had prolonged period of anoxia leading to anoxic brain injury. Her mental status has not improved since then since this incidents she has been comatose. Sepsis secondary to UTI * Rocephin stopped * STILL WITH RECURRENT FEVER * started on cefepime and vancomycin * fever- repeat Blood cultures * OBSTRUCTING STONES NOTED ON CT * Klebsiella/candidada * Discussed with DR Paul * Consulted /VASCULAR INPUT NOTED * CT UROGRAM. DISCUSSED WITH NEPHROLOGY-OK TO PROCEED Gram negative septicemia/sepsis * blood culture growing Klebsiella PNA, per ID switch to vancomycin and Cefapime * continue abx till 12/27 * ID input appreciated, abx have been changed to broaden coverage, Obstructing Nephrolithasis * left sided. * Urology consult for evalaution Acute kidney injury now ESRD and HD dependent * likely secondary to ATN, nephrology input appreciated, continue hemodialysis Toxic metabolic encephalopathy * Anoxic brain injury per MRI Type 2 diabetes * Continue sliding scale * increase basal insulin for better control Hypertension * BP acceptable, continue current management Anoxic Brain Injury/ Metabolic encephalopathy * She had an MRI of her brain on 12/12 did not show any acute changes * MRI brain shows ischemic injury in the subinsular regions, caudate nucleus, right posterior hippocampus * She most likely suffered this anoxic brain injury when she was in cardiac arrest. Acute respiratory failure, on MV greater than 96 hours * initially had emergent cricothyroidotomy on 12/15, and then sp tracheostomy on 12/18 * ON VENT DURING THE NIGHT TIME. Abdominal Distension * fup CT abdomen with PO contrast. Cardiogenic shock * Has been weaned off pressors Hypokalemia-PERSISTENT RECHECK POST REPLACEMENT Replete judiciously, given that she has TAYA Hypomagnesemia Was replaced Hyperlipidemia Continue statin Hypothyroidism TSH within normal limits Continue Synthroid at current dose Obesity Hypoventilation/SHELIA continue vent DVT prophylaxis continue heparin Discussed with family AND UPDATED ON FINDINGS and consultants Prognosis is poor. patient will likely SNF placement vs Hospice Placement, Her has been very resistant to hearing the poor prognosis of his . will need to organize a family meeting to discuss goals of care will recommend LTAC eval The high probability of a clinically significant, sudden or life threatening deterioration of the [pulmonary, cardiovascular, renal] system(s) required my full and direct attention, intervention and personal management. The aggregate critical care time was [35] minutes. This time is in addition to time spent performing reported procedures but includes the following: [X] Data Review and interpretation [X] Patient assessment and monitoring of vital signs [X] Documentation [X] Medication orders and management History Interval history: Patient seen and examined, remains in mild respiratory distress and not following commands. rests on ventilatory support overnight Hospitalist Physical - Physical exam Narrative exam: VITAL SIGNS: Reviewed. GENERAL: The patient appeared well nourished and normally developed. Vital signs as documented. HEAD: No signs of head trauma. EYES: Pupils are equal. Extraocular motions intact. EARS: Hearing grossly intact. MOUTH: Oropharynx is normal. NECK: No adenopathy, no JVD, tracheostomy site clean ON VENT CHEST: Chest with Crackles breath sounds bilaterally. CARDIAC: Regular rate and rhythm. S1 and S2, without murmurs, gallops, or rubs. VASCULAR: No Edema. Peripheral pulses normal and equal in all extremities. ABDOMEN: Soft, without detectable tenderness. Distended. No rebound or guarding, and no masses palpated. Bowel Sounds HYPOACTIVE. MUSCULOSKELETAL: Good range of motion of all major joints. Extremities without clubbing, cyanosis or edema. NEUROLOGIC EXAM: More Awake but disoriented not following commands. Unable to assess strength and sensory PSYCHIATRIC: unable to assess SKIN: No rash or lesions. - Constitutional Vitals: Temp Pulse Resp BP Pulse Ox 101.1 F H 110 H 29 H 158/104 98 12/26/16 12:00 12/26/16 16:00 12/26/16 16:00 12/26/16 16:00 12/26/16 16:00 General appearance: Present: severe distress Results - Labs CBC & Chem 7: 12/23/16 05:15 12/26/16 03:30 Labs: Laboratory Last Values WBC 10.4 K/mm3 (4.5-11.0) 12/23/16 05:15 RBC 3.05 M/mm3 (3.65-5.03) L 12/23/16 05:15 Hgb 9.1 gm/dl (10.1-14.3) L 12/23/16 05:15 Hct 27.9 % (30.3-42.9) L 12/23/16 05:15 MCV 92 fl (79-97) 12/23/16 05:15 MCH 30 pg (28-32) 12/23/16 05:15 MCHC 33 % (30-34) 12/23/16 05:15 RDW 14.2 % (13.2-15.2) 12/23/16 05:15 Plt Count 164 K/mm3 (140-440) 12/23/16 05:15 Lymph % (Auto) 16.1 % (13.4-35.0) 12/23/16 05:15 Gallia % (Auto) 4.9 % (0.0-7.3) 12/23/16 05:15 Eos % (Auto) 1.2 % (0.0-4.3) 12/23/16 05:15 Baso % (Auto) 0.3 % (0.0-1.8) 12/23/16 05:15 Lymph # 1.7 K/mm3 (1.2-5.4) 12/23/16 05:15 Gallia # 0.5 K/mm3 (0.0-0.8) 12/23/16 05:15 Eos # 0.1 K/mm3 (0.0-0.4) 12/23/16 05:15 Baso # 0.0 K/mm3 (0.0-0.1) 12/23/16 05:15 Seg Neutrophils % 77.5 % (40.0-70.0) H 12/23/16 05:15 Seg Neutrophils # 8.1 K/mm3 (1.8-7.7) H 12/23/16 05:15 PT 17.6 Sec. (12.2-14.9) H 12/16/16 06:30 INR 1.45 (0.87-1.13) H 12/16/16 06:30 APTT 27.6 Sec. (24.2-36.6) 12/11/16 23:50 Thrombin Time 16.6 Sec. (15.1-19.6) 12/11/16 23:50 POC ABG pH 7.433 (7.35-7.45) 12/23/16 11:54 POC ABG pCO2 39.9 (35-45) 12/23/16 11:54 POC ABG pO2 187 (80-105) H 12/23/16 11:54 POC ABG HCO3 26.7 12/23/16 11:54 POC ABG Total CO2 28 12/23/16 11:54 POC ABG O2 Sat 100 12/23/16 11:54 POC ABG Base Excess 2 12/23/16 11:54 FiO2 30 % 12/23/16 11:54 Sodium 149 mmol/L (137-145) H 12/26/16 03:30 Potassium 2.6 mmol/L (3.6-5.0) L* 12/26/16 03:30 Chloride 113.0 mmol/L (98-107) H 12/26/16 03:30 Carbon Dioxide 20 mmol/L (22-30) L 12/26/16 03:30 Anion Gap 19 mmol/L 12/26/16 03:30 BUN 61 mg/dL (7-17) H 12/26/16 03:30 Creatinine 2.6 mg/dL (0.7-1.2) H 12/26/16 03:30 Estimated GFR 19 ml/min 12/26/16 03:30 BUN/Creatinine Ratio 23.46 % 12/26/16 03:30 Glucose 182 mg/dL (65-100) H 12/26/16 03:30 POC Glucose 183 (70-105) H 12/26/16 05:42 Lactic Acid 1.80 mmol/L (0.7-2.0) 12/15/16 Unknown Calcium 9.6 mg/dL (8.4-10.2) 12/26/16 03:30 Phosphorus 4.30 mg/dL (2.5-4.5) 12/25/16 04:38 Magnesium 1.70 mg/dL (1.7-2.3) 12/25/16 04:38 Total Bilirubin 0.20 mg/dL (0.1-1.2) 12/26/16 03:30 Direct Bilirubin < 0.2 mg/dL (0-0.2) 12/24/16 05:00 Indirect Bilirubin 0.0 mg/dL 12/16/16 15:30 AST 46 units/L (5-40) H 12/26/16 03:30 ALT 30 units/L (7-56) 12/26/16 03:30 Alkaline Phosphatase 69 units/L (35-129) 12/26/16 03:30 Total Creatine Kinase 73 units/L (30-135) 12/15/16 04:35 Troponin T < 0.010 ng/mL (0.00-0.029) 12/11/16 23:50 C-Reactive Protein 12.10 mg/dL (0.00-1.30) H 12/22/16 15:07 Serum Total Protein 6.1 g/dL (6.1-8.1) 12/14/16 09:00 Total Protein 7.2 g/dL (6.3-8.2) 12/26/16 03:30 Albumin 2.7 g/dL (3.9-5) L 12/26/16 03:30 Albumin/Globulin Ratio 0.6 % 12/26/16 03:30 Myfut-7-Tgjaayzem 0.7 g/dL (0.2-0.3) H 12/14/16 09:00 Nunmt-1-Lursvdsdk 1.0 g/dL (0.5-0.9) H 12/14/16 09:00 Beta Globulins 0.7 g/dL (0.2-0.5) H 12/14/16 09:00 Gamma Globulins 0.7 g/dL (0.8-1.7) L 12/14/16 09:00 Abnorm Protein Band 1 see below 12/14/16 09:00 PEP Interpretation see below H 12/14/16 09:00 Triglycerides 166 mg/dL (2-149) H 12/13/16 03:39 Cholesterol 66 mg/dL (50-199) 12/13/16 03:39 LDL Cholesterol Direct 24 mg/dL (50-130) L 12/13/16 03:39 HDL Cholesterol 9 mg/dL (40-59) L 12/13/16 03:39 Cholesterol/HDL Ratio 7.33 % 12/13/16 03:39 TSH 2.640 mlU/mL (0.270-4.200) 12/12/16 15:23 Urine Color Yellow (Yellow) 12/12/16 21:30 Urine Turbidity Turbid (Clear) 12/12/16 21:30 Urine pH 5.0 (5.0-7.0) 12/12/16 21:30 Ur Specific [place] 1.015 (1.003-1.030) 12/12/16 21:30 Urine Protein 100 mg/dl mg/dL (Negative) 12/12/16 21:30 Urine Glucose (UA) Neg mg/dL (Negative) 12/12/16 21:30 Urine Ketones Neg mg/dL (Negative) 12/12/16 21:30 Urine Blood Lg (Negative) 12/12/16 21:30 Urine Nitrite Neg (Negative) 12/12/16 21:30 Urine Bilirubin Neg (Negative) 12/12/16 21:30 Urine Urobilinogen < 2.0 mg/dL (<2.0) 12/12/16 21:30 Ur Leukocyte Esterase Lg (Negative) 12/12/16 21:30 Urine WBC (Auto) > 182.0 /HPF (0.0-6.0) H 12/12/16 21:30 Urine RBC (Auto) 62.0 /HPF (0.0-6.0) 12/12/16 21:30 U Epithel Cells (Auto) 7.0 /HPF (0-13.0) 12/12/16 21:30 Urine Bacteria (Auto) 4+ /HPF (Negative) 12/12/16 21:30 Urine WBC Clumps 3+ /HPF 12/12/16 21:30 Calcium Oxalate Crystal 3+ 12/12/16 21:30 Random Vancomycin 12.8 ug/mL (0-40.0) 12/24/16 05:00 Urine Opiates Screen Presumptive negative 12/12/16 21:30 Urine Methadone Screen Presumptive negative 12/12/16 21:30 Ur Barbiturates Screen Presumptive negative 12/12/16 21:30 Ur Phencyclidine Scrn Presumptive negative 12/12/16 21:30 Ur Amphetamines Screen Presumptive negative 12/12/16 21:30 U Benzodiazepines Scrn Presumptive negative 12/12/16 21:30 Urine Cocaine Screen Presumptive negative 12/12/16 21:30 U Marijuana (THC) Screen Presumptive negative 12/12/16 21:30 Drugs of Abuse Note Disclamer 12/12/16 21:30 RYLAN Screen Positive (Negative) H 12/14/16 09:00 RYLAN Titer 1:320 (Negative) H 12/14/16 09:00 RYLAN Pattern Homogeneous 12/14/16 09:00 Proteinase 3 (PR3) Ab <1.0 AI (<1.0) 12/14/16 09:00 Myeloperoxidase Ab <1.0 AI (<1.0) 12/14/16 09:00 Glomerular Base Mem IgG <1.0 AI (<1.0) 12/14/16 09:00 Complement C3 206 mg/dL (90-180) H 12/14/16 09:00 Complement C4 56 mg/dL (16-47) H 12/14/16 09:00 Hepatitis A IgM Ab Non-reactive (NonReactive) 12/18/16 18:30 Hep Bs Antigen Non-reactive (Negative) 12/18/16 18:30 Hep B Core IgM Ab Non-reactive (NonReactive) 12/18/16 18:30 Hepatitis C Antibody Non-reactive (NonReactive) 12/18/16 18:30 Renal Biopsy Scanned into med rec 12/15/16 13:43 Miscellaneous Test Flexitest 1 H 12/23/16 06:00
[2016-12-26 19:24] LABS: BUN/Creatinine Ratio 25.65; Calcium 9.5 mg/dL (8.4-10.2); Chloride 116.1 mmol/L (98-107); Potassium 3.1 mmol/L (3.6-5.0)
[2016-12-26] MEDS ORDERED: POTASSIUM CHLORIDE FEEDTUBE ONE (19:53)
--- NOTE | 2016-12-26 20:31 | Cat Scan Report ---
FINAL REPORT EXAM: CT ABDOMEN PELVIS WO/W CON HISTORY: Urogram for evaluation of Hydronephrosis TECHNIQUE: CT abdomen and pelvis with and without intravenous contrast. CT urogram technique PRIORS: Comparison is dated December 24, 2016 FINDINGS: No focal abnormalities identified within the liver parenchyma. Spleen is normal in size and attenuation No pancreatic abnormalities are identified. There is NG tube present within the stomach distal tip within the gastric antrum There is marked colonic distention unchanged from prior exam. The appendix is identified and is unremarkable fluid levels are present within the colon There is a Loredo within the urinary bladder which is nondistended. At the lower pole the right kidney there is subtle hypodensity on post-contrast images could be artifactual as there is considerable streak artifact present. Right kidney demonstrates no evidence for hydronephrosis or nephrolithiasis again identified is a calculus within the left renal pelvis measuring approximately 1.0 centimeters. There is insufficient contrast within the ureters on delayed images to fully evaluate the ureters and renal collecting system. There is no evidence for hydronephrosis. Additionally identified is a lower pole left renal calculus previously noted unchanged there is hypodense appearance of the posterior upper pole left renal parenchyma. Margins are slightly irregular. A definitive cortical rim sign is not identified however there is some enhancement along the rim at the superior aspect. No acute perirenal inflammatory appearing changes are observed. Findings are most suggestive of renal infarct however pyelonephritis is a consideration. No evidence for small bowel distention. No free-fluid or free air identified a right femoral central venous catheter is noted. There is a Loredo within the urinary bladder which is nondistended. Rectal tube identified. IMPRESSION: lack of enhancement and hypodensity in left renal parenchyma upper pole. Differential consideration is renal infarct versus pyelonephritis. Appearance is more favorable for renal infarct No evidence for hydronephrosis on the left. Nonobstructing calculi observed with a calculus within renal pelvis Questionable hypodensity ill-defined lower pole right kidney. Could be artifactual however early pyelonephritis is not entirely excluded. Continued colonic distention fluid levels within the colon. Rectal tube. Loredo NG tube again identified in satisfactory position
[2016-12-26] MEDS: HEPARIN IV PRN (20:42)
[2016-12-26] MEDS: ZOCOR PO SCH (22:25)
[2016-12-27] MEDS: NOVOLOG SUB-Q SCH ×4 (00:37→18:12)
[2016-12-27 04:59] LABS: Albumin 2.9 g/dL (3.9-5); Albumin/Globulin Ratio 0.6 %; BUN/Creatinine Ratio 22.63; Bilirubin,Total 0.3 mg/dL (0.1-1.2); Calcium 9.5 mg/dL (8.4-10.2); Chloride 112.1 mmol/L (98-107); Total Protein 7.7 g/dL (6.3-8.2)
[2016-12-27 05:04] LABS: Potassium 2.9 mmol/L (3.6-5.0)
[2016-12-27] MEDS: KCL 20MEQ/100ML 20 MEQ/100 ML BAG IV SCH ×2 (06:11→07:30)
[2016-12-27] MEDS: HEPARIN SUB-Q SCH ×3 (06:18→22:16)
[2016-12-27] MEDS: KCL 10MEQ/100ML 10 MEQ/100 ML BAG IV SCH ×4 (08:41→11:45)
[2016-12-27] MEDS: DIFLUCAN 200 MG/100 ML BAG IV SCH (09:25)
[2016-12-27] MEDS: COREG PO SCH ×2 (09:26→22:16)
[2016-12-27] MEDS: LEVEMIR SUB-Q SCH (09:26)
[2016-12-27] MEDS: PEPCID PO SCH (09:26)
[2016-12-27] MEDS: ASPIRIN PO SCH (09:26)
[2016-12-27] MEDS: TYLENOL PO PRN ×2 (09:27→18:09)
[2016-12-27] MEDS: MAXIPIME/NS 1 GM/100 ML 1 GM/100 ML BAG IV SCH (10:30)
--- NOTE | 2016-12-27 12:48 | Progress Note ---
Assessment and Plan Assessment: 1) Sepsis: still fever trending down. Initial etiology most likely UTI/ bacteremia. However, noted persistent fever despite appropriate IV antibiotic coverage likely to ? renal infarct ? central -repeat blood cx negative -LE US negative for DVT -CRP=12 -Procalcitonin=0.7 2) Complicated UTI with left obstructive calculi x 2: -Secondary to Klebsiella. -Renal US normal. -Repeat urine cx + Lyndsay-likely a colonizer -CT showed bilateral renal calculi with 2 obstructive calculi to the left -CT urogram showed renal infarct versus pyelonephritis on the left upper pole 3) Klebsiella bacteremia: from UTI. Repeat blood cx 12/20 negative 4) ?Lupus 5) Respiratory failure 6) Encephalopathy ? anoxic ? metabolic 7) Abdominal distention ? ileus 8) TAYA-better Plan: -continue fluconazole -stop cefepime -start ceftriaxone -upon discharge will do ceftriaxone 2 g IV q day and fluconazole 200 mg PO q day total 14 days from 12/20 to 01/02/17. will send outpatient parenteral antibiotics orders to case coordinator -monitor fever I will be covering the weekend Thank you Dr Espinosa for your consultation, will follow up with you. Leta Xavier MD Infectious Diseases Specialist [facility] [id number] [phone] [id number] [phone] Subjective Principal diagnosis: Acute resp. failure Objective - Constitutional Vitals: Vital Signs Temp Pulse Resp BP Pulse Ox 101.0 F H 99 H 22 150/88 100 12/27/16 08:00 12/27/16 12:00 12/27/16 12:00 12/27/16 12:00 12/27/16 12:00 Temperature -Last 24 Hours Temperature 101.0 F Temperature 100.9 F Temperature 100.9 F Temperature 99.5 F Temperature 100.2 F Temperature 100.2 F Temperature 101.5 F Temperature 101.5 F - Labs CBC & Chem 7: 12/23/16 05:15 12/27/16 04:00 Labs: Abnormal lab results 12/26/16 12/27/16 12/27/16 Range/Units 18:40 00:22 04:00 Sodium 150 H 149 H (137-145) mmol/L Potassium 3.1 L 2.9 L* (3.6-5.0) mmol/L Chloride 116.1 H 112.1 H (98-107) mmol/L Carbon Dioxide 17 L 20 L (22-30) mmol/L BUN 59 H 43 H (7-17) mg/dL Creatinine 2.3 H 1.9 H (0.7-1.2) mg/dL Glucose 180 H 160 H (65-100) mg/dL POC Glucose 182 H (70-105) AST 75 H (5-40) units/L Albumin 2.9 L (3.9-5) g/dL 12/27/16 12/27/16 Range/Units 05:13 12:42 Sodium (137-145) mmol/L Potassium (3.6-5.0) mmol/L Chloride (98-107) mmol/L Carbon Dioxide (22-30) mmol/L BUN (7-17) mg/dL Creatinine (0.7-1.2) mg/dL Glucose (65-100) mg/dL POC Glucose 168 H 163 H (70-105) AST (5-40) units/L Albumin (3.9-5) g/dL
--- NOTE | 2016-12-27 13:29 | Progress Note ---
Assessment and Plan Imp: 1. UTI/bacteremia/sepsis 2. TAYA -> ATN 3. S/p CP arrest 4. Anoxic encephalopathy 5. S/p Trach 6. Morbid obesity 7. Acute respiratory failure, hypoxia 8. ? Ileus 9. Nephrolithiasis Rec: 1. ABX as per ID 2. T-piece trials daily; rest on PSV at night although may be able to do 24/7 Tpiece soon; return to [facility] prn only 3. Will need PEG at some point 4. Holding all sedation; monitor neuro status 5. DVT PPx 6. K repleted already 7. Agree w/ LTAC 8. Try increasing TFs to goal 9. Complex decision-making/patient No family present today. Subjective Date of service: 12/27/16 Principal diagnosis: Acute resp. failure Interval history: No events. Tolerating Tpiece. Was on PSV overnight. Appears to be tracking today but not following commands. Tolerating trophic TFs. Active Medications Acetaminophen (Tylenol) 650 mg PO Q4H PRN PRN Reason: Pain, Mild (1-3) Last Admin: 12/27/16 09:27 Dose: 650 mg Albumin Human (Alburx 25% (Albumin)) 12.5 gm IV DIPESH PRN PRN Reason: Hypotension Lipase/Protease/Amylase (Pancreaze Dr 10,500 Unit) 1 each FEEDTUBE PRN PRN PRN Reason: For Clogged Feeding Tube Artificial Tears (Isopto Tears 0.5%) 2 drops OU Q4H PRN PRN Reason: Dry Eye(s) Last Admin: 12/16/16 05:25 Dose: 2 drops Aspirin (Aspirin) 325 mg PO QDAY [facility] Last Admin: 12/27/16 09:26 Dose: 325 mg Bisacodyl (Dulcolax) 10 mg [place] QDAY PRN PRN Reason: Constipation Carvedilol (Coreg) 3.125 mg PO BID [facility] Last Admin: 12/27/16 09:26 Dose: 3.125 mg Dextrose (D50w (25gm)) 50 ml IV PRN PRN PRN Reason: Hypoglycemia Last Admin: 12/15/16 10:25 Dose: 50 ml Famotidine (Pepcid) 20 mg PO DAILY [facility] Last Admin: 12/27/16 09:26 Dose: 20 mg Heparin Sodium (Porcine) (Heparin) 5,000 unit SUB-Q Q8HR [facility] Last Admin: 12/27/16 06:18 Dose: 5,000 unit Heparin Sodium (Porcine) (Heparin) 5,000 unit IV DIPESH PRN PRN Reason: dwell Last Admin: 12/26/16 20:42 Dose: 5,000 unit Hydralazine HCl (Apresoline) 5 mg IV Q6H PRN PRN Reason: Keep SBP between 160-185 mm Hg Last Admin: 12/26/16 05:18 Dose: 5 mg Fluconazole (Diflucan) 200 mg in 100 mls @ 100 mls/hr IV Q24HR [facility] Last Admin: 12/27/16 09:25 Dose: 100 mls/hr Sodium Chloride (Nacl 0.9%) 100 mls @ 999 mls/hr IV DIPESH PRN PRN Reason: Hypotension Ceftriaxone Sodium (Rocephin/Ns 2 Gm/100 Ml) 2 gm in 100 mls @ 200 mls/hr IV Q24HR [facility] PRN Reason: Protocol Insulin Aspart (Novolog) 0 units SUB-Q Q6HR [facility] PRN Reason: Protocol Last Admin: 12/27/16 06:17 Dose: 3 units Insulin Detemir (Levemir) 17 units SUB-Q DAILY [facility] Last Admin: 12/27/16 09:26 Dose: 17 units Magnesium Hydroxide (Milk Of Magnesia) 30 ml PO Q4H PRN PRN Reason: Constipation Ondansetron HCl (Zofran) 4 mg IV Q8H PRN PRN Reason: N/V unrelieved by Reglan Simple Syrup (Simple Syrup) 15 ml FEEDTUBE PRN PRN PRN Reason: Hypoglycemia Simple Syrup (Simple Syrup) 30 ml FEEDTUBE PRN PRN PRN Reason: Hypoglycemia Simvastatin (Zocor) 20 mg PO QHS [facility] Last Admin: 12/26/16 22:25 Dose: 20 mg Sodium Bicarbonate (Sodium Bicarbonate) 325 mg FEEDTUBE PRN PRN PRN Reason: For Clogged Feeding Tube Sodium Chloride (Sodium Chloride Flush Syringe 10 Ml) 10 ml IV PRN PRN PRN Reason: LINE FLUSH Objective Vital Signs - 12hr 12/27/16 12/27/16 12/27/16 01:31 02:01 02:31 Temperature Pulse Rate 105 H 106 H 106 H Pulse Rate [ From Monitor] Respiratory 19 20 22 Rate Blood Pressure 136/92 138/82 138/82 O2 Sat by Pulse 100 97 97 Oximetry O2 Sat by Pulse Oximetry [ Assessment] 12/27/16 12/27/16 12/27/16 03:01 03:30 03:55 Temperature Pulse Rate 107 H 108 H 108 H Pulse Rate [ From Monitor] Respiratory 17 17 15 Rate Blood Pressure 147/106 147/106 147/106 O2 Sat by Pulse 99 100 100 Oximetry O2 Sat by Pulse Oximetry [ Assessment] 12/27/16 12/27/16 12/27/16 04:00 04:31 05:00 Temperature 100.9 F H Pulse Rate 106 H 109 H 108 H Pulse Rate [ From Monitor] Respiratory 14 17 18 Rate Blood Pressure 129/89 129/89 134/88 O2 Sat by Pulse 99 99 99 Oximetry O2 Sat by Pulse Oximetry [ Assessment] 12/27/16 12/27/16 12/27/16 05:30 06:00 06:21 Temperature Pulse Rate 102 H 105 H Pulse Rate [ From Monitor] Respiratory 19 20 19 Rate Blood Pressure 134/88 134/88 O2 Sat by Pulse 98 98 99 Oximetry O2 Sat by Pulse Oximetry [ Assessment] 12/27/16 12/27/16 12/27/16 06:31 07:00 07:31 Temperature Pulse Rate 110 H 112 H 109 H Pulse Rate [ From Monitor] Respiratory 18 20 19 Rate Blood Pressure 136/86 140/84 140/84 O2 Sat by Pulse 99 99 99 Oximetry O2 Sat by Pulse Oximetry [ Assessment] 12/27/16 12/27/16 12/27/16 08:00 08:15 08:31 Temperature 101.0 F H Pulse Rate 108 H 110 H Pulse Rate [ 108 H From Monitor] Respiratory 23 22 Rate Blood Pressure 126/74 126/74 O2 Sat by Pulse 98 98 99 Oximetry O2 Sat by Pulse 98 Oximetry [ Assessment] 12/27/16 12/27/16 12/27/16 09:00 09:26 09:31 Temperature Pulse Rate 109 H 109 H 109 H Pulse Rate [ From Monitor] Respiratory 22 24 Rate Blood Pressure 147/78 147/78 147/78 O2 Sat by Pulse 99 99 Oximetry O2 Sat by Pulse Oximetry [ Assessment] 12/27/16 12/27/16 12/27/16 10:01 10:31 11:00 Temperature Pulse Rate 108 H 96 H 97 H Pulse Rate [ From Monitor] Respiratory 27 H 24 23 Rate Blood Pressure 135/75 135/75 148/88 O2 Sat by Pulse 100 99 99 Oximetry O2 Sat by Pulse Oximetry [ Assessment] 12/27/16 12/27/16 11:31 12:00 Temperature 98.3 F Pulse Rate 98 H 98 H Pulse Rate [ From Monitor] Respiratory 22 22 Rate Blood Pressure 148/88 150/88 O2 Sat by Pulse 99 100 Oximetry O2 Sat by Pulse Oximetry [ Assessment] Constitutional: other (eyes open, ? tracking) Eyes: non-icteric ENT: oropharynx moist, other (trach midline) Neck: supple, other (large in circumference) Effort: normal Ascultation: Bilateral: clear Cardiovascular: regular rate and rhythm (no mrg) Gastrointestinal: hypoactive bowel sounds, other (obese, distended) Integumentary: normal Extremities: no cyanosis, no edema, pink and warm Neurologic: other (flaccid extremities, not following commands; ? some posturing UEs; eyes are open and ? tracking today) Psychiatric: other (not able to assess) CBC and BMP: 12/23/16 05:15 12/27/16 04:00 ABG, PT/INR, D-dimer: ABG POC ABG pH 7.433 (7.35-7.45) 12/23/16 11:54 POC ABG pCO2 39.9 (35-45) 12/23/16 11:54 POC ABG pO2 187 (80-105) H 12/23/16 11:54 POC ABG HCO3 26.7 12/23/16 11:54 POC ABG Total CO2 28 12/23/16 11:54 POC ABG O2 Sat 100 12/23/16 11:54 PT/INR, D-dimer PT 17.6 Sec. (12.2-14.9) H 12/16/16 06:30 INR 1.45 (0.87-1.13) H 12/16/16 06:30 Abnormal lab findings: Abnormal Labs 12/12/16 12/12/16 12/12/16 08:06 12:27 15:23 WBC RBC Hgb Hct Plt Count Lymph % (Auto) Clinch % (Auto) Lymph # Seg Neutrophils % Seg Neutrophils # PT INR POC ABG pH POC ABG pCO2 POC ABG pO2 Sodium Potassium Chloride Carbon Dioxide BUN Creatinine Glucose POC Glucose 299 H 281 H Lactic Acid 4.20 H* Calcium Phosphorus Magnesium AST Alkaline Phosphatase C-Reactive Protein Total Protein Albumin Soral-1-Cagfacbmm Rjtgr-8-Xxnnziesi Beta Globulins Gamma Globulins PEP Interpretation Triglycerides LDL Cholesterol Direct HDL Cholesterol Urine WBC (Auto) RYLAN Screen RYLAN Titer Complement C3 Complement C4 Miscellaneous Test 12/12/16 12/12/16 12/12/16 16:53 19:51 20:43 WBC RBC Hgb Hct Plt Count Lymph % (Auto) Clinch % (Auto) Lymph # Seg Neutrophils % Seg Neutrophils # PT INR POC ABG pH POC ABG pCO2 POC ABG pO2 Sodium Potassium Chloride Carbon Dioxide BUN Creatinine Glucose POC Glucose 272 H 238 H Lactic Acid 2.90 H* Calcium Phosphorus Magnesium AST Alkaline Phosphatase C-Reactive Protein Total Protein Albumin Ojvje-2-Blvokyfih Txtwj-7-Zoujrpyoa Beta Globulins Gamma Globulins PEP Interpretation Triglycerides LDL Cholesterol Direct HDL Cholesterol Urine WBC (Auto) RYLAN Screen RYLAN Titer Complement C3 Complement C4 Miscellaneous Test 12/12/16 12/13/16 12/13/16 21:30 03:39 03:39 WBC RBC Hgb Hct Plt Count 118 L Lymph % (Auto) 7.4 L Clinch % (Auto) 7.6 H Lymph # 0.7 L Seg Neutrophils % 84.7 H Seg Neutrophils # 8.4 H PT INR POC ABG pH POC ABG pCO2 POC ABG pO2 Sodium 133 L Potassium Chloride 96.5 L Carbon Dioxide 18 L BUN 49 H Creatinine 3.1 H D Glucose 173 H POC Glucose Lactic Acid Calcium 8.3 L D Phosphorus Magnesium 1.20 L AST Alkaline Phosphatase C-Reactive Protein Total Protein Albumin 2.6 L Ueoqt-6-Hvprheffa Tynxj-1-Dtmnbklwv Beta Globulins Gamma Globulins PEP Interpretation Triglycerides 166 H LDL Cholesterol Direct 24 L HDL Cholesterol 9 L Urine WBC (Auto) > 182.0 H RYLAN Screen RYLAN Titer Complement C3 Complement C4 Miscellaneous Test 12/13/16 12/13/16 12/13/16 07:41 11:53 17:23 WBC RBC Hgb Hct Plt Count Lymph % (Auto) Clinch % (Auto) Lymph # Seg Neutrophils % Seg Neutrophils # PT INR POC ABG pH POC ABG pCO2 POC ABG pO2 Sodium Potassium Chloride Carbon Dioxide BUN Creatinine Glucose POC Glucose 222 H 221 H 247 H Lactic Acid Calcium Phosphorus Magnesium AST Alkaline Phosphatase C-Reactive Protein Total Protein Albumin Tyqcs-0-Ajqxvvanl Rspqk-0-Nuuscbkld Beta Globulins Gamma Globulins PEP Interpretation Triglycerides LDL Cholesterol Direct HDL Cholesterol Urine WBC (Auto) RYLAN Screen RYLAN Titer Complement C3 Complement C4 Miscellaneous Test 12/13/16 12/14/16 12/14/16 21:29 03:35 03:35 WBC RBC 3.42 L Hgb Hct Plt Count 86 L Lymph % (Auto) 6.1 L Clinch % (Auto) Lymph # 0.3 L Seg Neutrophils % 87.3 H Seg Neutrophils # PT INR POC ABG pH POC ABG pCO2 POC ABG pO2 Sodium 133 L Potassium 5.1 H Chloride 96.2 L Carbon Dioxide 17 L BUN 63 H Creatinine 4.2 H Glucose 136 H POC Glucose 185 H Lactic Acid Calcium 8.1 L Phosphorus Magnesium 1.30 L AST Alkaline Phosphatase C-Reactive Protein Total Protein Albumin Nispm-8-Sopxgmipf Kjfsy-0-Sgsvtzcln Beta Globulins Gamma Globulins PEP Interpretation Triglycerides LDL Cholesterol Direct HDL Cholesterol Urine WBC (Auto) RYLAN Screen RYLAN Titer Complement C3 Complement C4 Miscellaneous Test 12/14/16 12/14/16 12/14/16 08:32 09:00 09:00 WBC RBC Hgb Hct Plt Count Lymph % (Auto) Clinch % (Auto) Lymph # Seg Neutrophils % Seg Neutrophils # PT INR POC ABG pH POC ABG pCO2 POC ABG pO2 Sodium Potassium Chloride Carbon Dioxide BUN Creatinine Glucose POC Glucose 152 H Lactic Acid Calcium Phosphorus Magnesium AST Alkaline Phosphatase C-Reactive Protein Total Protein Albumin Tfpxy-5-Swpmddzwv Eeuva-9-Mxpzjqzhc Beta Globulins Gamma Globulins PEP Interpretation Triglycerides LDL Cholesterol Direct HDL Cholesterol Urine WBC (Auto) RYLAN Screen Positive H RYLAN Titer 1:320 H Complement C3 206 H Complement C4 Miscellaneous Test 12/14/16 12/14/16 12/14/16 09:00 09:00 11:50 WBC RBC Hgb Hct Plt Count Lymph % (Auto) Clinch % (Auto) Lymph # Seg Neutrophils % Seg Neutrophils # PT INR POC ABG pH POC ABG pCO2 POC ABG pO2 Sodium Potassium Chloride Carbon Dioxide BUN Creatinine Glucose POC Glucose 168 H Lactic Acid Calcium Phosphorus Magnesium AST Alkaline Phosphatase C-Reactive Protein Total Protein Albumin 2.6 L Rkshh-7-Lzpcdzpax 0.7 H Sciwz-6-Bmmvkikmq 1.0 H Beta Globulins 0.7 H Gamma Globulins 0.7 L PEP Interpretation see below H Triglycerides LDL Cholesterol Direct HDL Cholesterol Urine WBC (Auto) RYLAN Screen RYLAN Titer Complement C3 Complement C4 56 H Miscellaneous Test 12/14/16 12/15/16 12/15/16 17:35 04:35 04:35 WBC 4.1 L RBC 3.39 L Hgb Hct Plt Count 84 L Lymph % (Auto) 8.8 L Clinch % (Auto) Lymph # 0.4 L Seg Neutrophils % 83.6 H Seg Neutrophils # PT INR POC ABG pH POC ABG pCO2 POC ABG pO2 Sodium Potassium 6.0 H Chloride Carbon Dioxide 15 L BUN 79 H Creatinine 5.0 H Glucose POC Glucose 154 H Lactic Acid Calcium 8.0 L Phosphorus 6.70 H D Magnesium AST Alkaline Phosphatase C-Reactive Protein Total Protein Albumin Pwcbj-8-Ondbhzejf Mnwhi-5-Lpyrhnyye Beta Globulins Gamma Globulins PEP Interpretation Triglycerides LDL Cholesterol Direct HDL Cholesterol Urine WBC (Auto) RYLAN Screen RYLAN Titer Complement C3 Complement C4 Miscellaneous Test 12/15/16 12/15/16 12/15/16 07:45 08:13 15:20 WBC RBC Hgb Hct Plt Count Lymph % (Auto) Clinch % (Auto) Lymph # Seg Neutrophils % Seg Neutrophils # PT INR POC ABG pH 7.156 L 7.228 L POC ABG pCO2 48.7 H POC ABG pO2 232 H Sodium Potassium Chloride Carbon Dioxide BUN Creatinine Glucose POC Glucose 113 H Lactic Acid Calcium Phosphorus Magnesium AST Alkaline Phosphatase C-Reactive Protein Total Protein Albumin Nnhvt-1-Sjwfikfwc Apube-0-Zgoubxzvi Beta Globulins Gamma Globulins PEP Interpretation Triglycerides LDL Cholesterol Direct HDL Cholesterol Urine WBC (Auto) RYLAN Screen RYLAN Titer Complement C3 Complement C4 Miscellaneous Test 12/15/16 12/15/16 12/15/16 23:53 Unknown Unknown WBC RBC 3.19 L Hgb 9.6 L Hct 29.8 L Plt Count 108 L Lymph % (Auto) 6.5 L Clinch % (Auto) Lymph # 0.4 L Seg Neutrophils % 87.1 H Seg Neutrophils # PT 16.2 H INR 1.31 H POC ABG pH POC ABG pCO2 POC ABG pO2 Sodium Potassium Chloride Carbon Dioxide BUN Creatinine Glucose POC Glucose 232 H Lactic Acid Calcium Phosphorus Magnesium AST Alkaline Phosphatase C-Reactive Protein Total Protein Albumin Zqvfb-9-Fgwmjwntv Arwtf-1-Twyazmvyu Beta Globulins Gamma Globulins PEP Interpretation Triglycerides LDL Cholesterol Direct HDL Cholesterol Urine WBC (Auto) RYLAN Screen RYLAN Titer Complement C3 Complement C4 Miscellaneous Test 12/15/16 12/16/16 12/16/16 Unknown 04:58 05:39 WBC RBC Hgb Hct Plt Count Lymph % (Auto) Clinch % (Auto) Lymph # Seg Neutrophils % Seg Neutrophils # PT INR POC ABG pH POC ABG pCO2 POC ABG pO2 143 H Sodium Potassium Chloride Carbon Dioxide 16 L BUN 85 H Creatinine 4.9 H Glucose 205 H POC Glucose 201 H Lactic Acid Calcium 8.2 L Phosphorus Magnesium AST 77 H Alkaline Phosphatase 136 H C-Reactive Protein Total Protein Albumin 2.3 L Xvxvw-4-Bxbogsrqj Rthmq-9-Zvkihdfit Beta Globulins Gamma Globulins PEP Interpretation Triglycerides LDL Cholesterol Direct HDL Cholesterol Urine WBC (Auto) RYLAN Screen RYLAN Titer Complement C3 Complement C4 Miscellaneous Test 12/16/16 12/16/16 12/16/16 06:30 06:30 06:30 WBC 4.0 L RBC 3.23 L Hgb 9.6 L Hct 29.8 L Plt Count 110 L Lymph % (Auto) 11.3 L Clinch % (Auto) Lymph # 0.5 L Seg Neutrophils % 81.2 H Seg Neutrophils # PT 17.6 H INR 1.45 H POC ABG pH POC ABG pCO2 POC ABG pO2 Sodium Potassium Chloride Carbon Dioxide 20 L BUN 57 H Creatinine 3.6 H Glucose 176 H POC Glucose Lactic Acid Calcium 8.1 L Phosphorus 4.90 H D Magnesium 1.60 L AST 46 H Alkaline Phosphatase 137 H C-Reactive Protein Total Protein Albumin 2.3 L Vvloo-4-Iatqdvlwx Pjjru-2-Vsnsfzohd Beta Globulins Gamma Globulins PEP Interpretation Triglycerides LDL Cholesterol Direct HDL Cholesterol Urine WBC (Auto) RYLAN Screen RYLAN Titer Complement C3 Complement C4 Miscellaneous Test 12/16/16 12/16/16 12/16/16 11:16 15:30 17:23 WBC RBC Hgb Hct Plt Count Lymph % (Auto) Clinch % (Auto) Lymph # Seg Neutrophils % Seg Neutrophils # PT INR POC ABG pH POC ABG pCO2 POC ABG pO2 Sodium Potassium Chloride Carbon Dioxide BUN Creatinine Glucose POC Glucose 194 H 209 H Lactic Acid Calcium Phosphorus Magnesium AST 43 H Alkaline Phosphatase 156 H C-Reactive Protein Total Protein 5.6 L Albumin 2.4 L Zjzhf-1-Nfgazvyux Tdvsw-1-Jhqdchjmo Beta Globulins Gamma Globulins PEP Interpretation Triglycerides LDL Cholesterol Direct HDL Cholesterol Urine WBC (Auto) RYLAN Screen RYLAN Titer Complement C3 Complement C4 Miscellaneous Test 12/16/16 12/17/16 12/17/16 23:35 03:38 05:18 WBC RBC Hgb Hct Plt Count Lymph % (Auto) Clinch % (Auto) Lymph # Seg Neutrophils % Seg Neutrophils # PT INR POC ABG pH 7.485 H POC ABG pCO2 POC ABG pO2 Sodium Potassium Chloride Carbon Dioxide BUN Creatinine Glucose POC Glucose 179 H 201 H Lactic Acid Calcium Phosphorus Magnesium AST Alkaline Phosphatase C-Reactive Protein Total Protein Albumin Icgew-7-Mnoddoujx Juhli-1-Dzjrxwooi Beta Globulins Gamma Globulins PEP Interpretation Triglycerides LDL Cholesterol Direct HDL Cholesterol Urine WBC (Auto) RYLAN Screen RYLAN Titer Complement C3 Complement C4 Miscellaneous Test 12/17/16 12/17/16 12/17/16 07:24 12:00 13:58 WBC RBC 3.02 L Hgb 9.2 L Hct 27.2 L Plt Count 100 L Lymph % (Auto) Clinch % (Auto) 7.9 H Lymph # 0.8 L Seg Neutrophils % 75.0 H Seg Neutrophils # PT INR POC ABG pH POC ABG pCO2 POC ABG pO2 Sodium Potassium 3.3 L Chloride Carbon Dioxide BUN 50 H Creatinine 3.1 H Glucose 181 H POC Glucose 176 H Lactic Acid Calcium Phosphorus Magnesium AST Alkaline Phosphatase 155 H C-Reactive Protein Total Protein Albumin 2.2 L Quxoi-0-Crjgqjlzl Lowyo-6-Ztqmysoeq Beta Globulins Gamma Globulins PEP Interpretation Triglycerides LDL Cholesterol Direct HDL Cholesterol Urine WBC (Auto) RYLAN Screen RYLAN Titer Complement C3 Complement C4 Miscellaneous Test 12/17/16 12/18/16 12/18/16 17:11 00:05 05:40 WBC RBC Hgb Hct Plt Count Lymph % (Auto) Clinch % (Auto) Lymph # Seg Neutrophils % Seg Neutrophils # PT INR POC ABG pH POC ABG pCO2 POC ABG pO2 Sodium Potassium Chloride Carbon Dioxide BUN Creatinine Glucose POC Glucose 152 H 155 H 170 H Lactic Acid Calcium Phosphorus Magnesium AST Alkaline Phosphatase C-Reactive Protein Total Protein Albumin Htipq-0-Wcgdpggqh Zkgem-9-Avqfpvmsg Beta Globulins Gamma Globulins PEP Interpretation Triglycerides LDL Cholesterol Direct HDL Cholesterol Urine WBC (Auto) RYLAN Screen RYLAN Titer Complement C3 Complement C4 Miscellaneous Test 12/18/16 12/18/16 12/18/16 07:52 12:21 15:10 WBC RBC Hgb Hct Plt Count Lymph % (Auto) Clinch % (Auto) Lymph # Seg Neutrophils % Seg Neutrophils # PT INR POC ABG pH POC ABG pCO2 POC ABG pO2 Sodium Potassium 2.9 L* Chloride Carbon Dioxide BUN 69 H Creatinine 4.5 H Glucose 150 H POC Glucose 165 H 130 H Lactic Acid Calcium Phosphorus Magnesium AST Alkaline Phosphatase C-Reactive Protein Total Protein Albumin Syebd-6-Zuqzbgxfj Gziol-3-Bguhxsxyb Beta Globulins Gamma Globulins PEP Interpretation Triglycerides LDL Cholesterol Direct HDL Cholesterol Urine WBC (Auto) RYLAN Screen RYLAN Titer Complement C3 Complement C4 Miscellaneous Test 12/18/16 12/18/16 12/19/16 18:43 23:33 03:04 WBC RBC Hgb Hct Plt Count Lymph % (Auto) Clinch % (Auto) Lymph # Seg Neutrophils % Seg Neutrophils # PT INR POC ABG pH 7.455 H POC ABG pCO2 POC ABG pO2 Sodium Potassium Chloride Carbon Dioxide BUN Creatinine Glucose POC Glucose 176 H 174 H Lactic Acid Calcium Phosphorus Magnesium AST Alkaline Phosphatase C-Reactive Protein Total Protein Albumin Clvmm-9-Pczlhnxwe Umram-6-Zwtrcvdtt Beta Globulins Gamma Globulins PEP Interpretation Triglycerides LDL Cholesterol Direct HDL Cholesterol Urine WBC (Auto) RYLAN Screen RYLAN Titer Complement C3 Complement C4 Miscellaneous Test 12/19/16 12/19/16 12/19/16 05:47 10:40 10:40 WBC RBC 3.06 L Hgb 9.2 L Hct 28.0 L Plt Count 126 L Lymph % (Auto) Clinch % (Auto) Lymph # Seg Neutrophils % Seg Neutrophils # PT INR POC ABG pH POC ABG pCO2 POC ABG pO2 Sodium Potassium 3.0 L Chloride Carbon Dioxide BUN 55 H Creatinine 3.4 H Glucose 161 H POC Glucose 160 H Lactic Acid Calcium Phosphorus 5.10 H Magnesium AST Alkaline Phosphatase C-Reactive Protein Total Protein Albumin Wrqiz-3-Nukhcrhgm Fvyul-9-Rvruuvroq Beta Globulins Gamma Globulins PEP Interpretation Triglycerides LDL Cholesterol Direct HDL Cholesterol Urine WBC (Auto) RYLAN Screen RYLAN Titer Complement C3 Complement C4 Miscellaneous Test 12/19/16 12/19/16 12/20/16 13:00 18:04 00:04 WBC RBC Hgb Hct Plt Count Lymph % (Auto) Clinch % (Auto) Lymph # Seg Neutrophils % Seg Neutrophils # PT INR POC ABG pH POC ABG pCO2 POC ABG pO2 Sodium Potassium Chloride Carbon Dioxide BUN Creatinine Glucose POC Glucose 173 H 129 H 152 H Lactic Acid Calcium Phosphorus Magnesium AST Alkaline Phosphatase C-Reactive Protein Total Protein Albumin Tkbpx-9-Cglsnkepw Xxowm-6-Ezazaghto Beta Globulins Gamma Globulins PEP Interpretation Triglycerides LDL Cholesterol Direct HDL Cholesterol Urine WBC (Auto) RYLAN Screen RYLAN Titer Complement C3 Complement C4 Miscellaneous Test 12/20/16 12/20/16 12/20/16 05:34 05:45 10:47 WBC RBC Hgb Hct Plt Count Lymph % (Auto) Clinch % (Auto) Lymph # Seg Neutrophils % Seg Neutrophils # PT INR POC ABG pH POC ABG pCO2 POC ABG pO2 110 H Sodium Potassium 3.4 L Chloride Carbon Dioxide BUN 72 H Creatinine 4.0 H Glucose 130 H POC Glucose 175 H Lactic Acid Calcium Phosphorus Magnesium AST Alkaline Phosphatase C-Reactive Protein Total Protein Albumin Oohmc-9-Vkasxiwsz Hrgwt-4-Qdhicjgyg Beta Globulins Gamma Globulins PEP Interpretation Triglycerides LDL Cholesterol Direct HDL Cholesterol Urine WBC (Auto) RYLAN Screen RYLAN Titer Complement C3 Complement C4 Miscellaneous Test 12/20/16 12/20/16 12/20/16 11:56 18:14 23:43 WBC RBC Hgb Hct Plt Count Lymph % (Auto) Clinch % (Auto) Lymph # Seg Neutrophils % Seg Neutrophils # PT INR POC ABG pH POC ABG pCO2 POC ABG pO2 Sodium Potassium Chloride Carbon Dioxide BUN Creatinine Glucose POC Glucose 130 H 142 H 193 H Lactic Acid Calcium Phosphorus Magnesium AST Alkaline Phosphatase C-Reactive Protein Total Protein Albumin Dsnfi-9-Nuzucqwbc Ffmyf-9-Cknconume Beta Globulins Gamma Globulins PEP Interpretation Triglycerides LDL Cholesterol Direct HDL Cholesterol Urine WBC (Auto) RYLAN Screen RYLAN Titer Complement C3 Complement C4 Miscellaneous Test 12/21/16 12/21/16 12/21/16 05:10 08:32 12:29 WBC RBC Hgb Hct Plt Count Lymph % (Auto) Clinch % (Auto) Lymph # Seg Neutrophils % Seg Neutrophils # PT INR POC ABG pH POC ABG pCO2 POC ABG pO2 Sodium 146 H Potassium Chloride Carbon Dioxide BUN 85 H Creatinine 4.3 H Glucose 184 H POC Glucose 204 H 214 H Lactic Acid Calcium Phosphorus Magnesium AST Alkaline Phosphatase C-Reactive Protein Total Protein Albumin Cbpoo-5-Fduvicuqj Inhjn-6-Azyqhnwbw Beta Globulins Gamma Globulins PEP Interpretation Triglycerides LDL Cholesterol Direct HDL Cholesterol Urine WBC (Auto) RYLAN Screen RYLAN Titer Complement C3 Complement C4 Miscellaneous Test 12/21/16 12/21/16 12/22/16 18:06 23:31 05:38 WBC RBC Hgb Hct Plt Count Lymph % (Auto) Clinch % (Auto) Lymph # Seg Neutrophils % Seg Neutrophils # PT INR POC ABG pH POC ABG pCO2 POC ABG pO2 Sodium Potassium Chloride Carbon Dioxide BUN Creatinine Glucose POC Glucose 184 H 191 H 182 H Lactic Acid Calcium Phosphorus Magnesium AST Alkaline Phosphatase C-Reactive Protein Total Protein Albumin Lhcjb-0-Vxtsdnpxa Vkklm-6-Yomdbitgd Beta Globulins Gamma Globulins PEP Interpretation Triglycerides LDL Cholesterol Direct HDL Cholesterol Urine WBC (Auto) RYLAN Screen RYLAN Titer Complement C3 Complement C4 Miscellaneous Test 12/22/16 12/22/16 12/22/16 06:30 12:23 15:07 WBC RBC Hgb Hct Plt Count Lymph % (Auto) Clinch % (Auto) Lymph # Seg Neutrophils % Seg Neutrophils # PT INR POC ABG pH POC ABG pCO2 POC ABG pO2 Sodium 148 H Potassium 3.3 L Chloride Carbon Dioxide BUN 87 H Creatinine 4.4 H Glucose 186 H POC Glucose 205 H Lactic Acid Calcium Phosphorus Magnesium AST Alkaline Phosphatase C-Reactive Protein 12.10 H Total Protein Albumin Pblug-4-Pcqxzqqpq Ihufn-8-Vupitxggi Beta Globulins Gamma Globulins PEP Interpretation Triglycerides LDL Cholesterol Direct HDL Cholesterol Urine WBC (Auto) RYLAN Screen RYLAN Titer Complement C3 Complement C4 Miscellaneous Test 12/22/16 12/22/16 12/23/16 16:25 22:49 05:15 WBC RBC Hgb Hct Plt Count Lymph % (Auto) Clinch % (Auto) Lymph # Seg Neutrophils % Seg Neutrophils # PT INR POC ABG pH POC ABG pCO2 POC ABG pO2 Sodium Potassium 3.5 L Chloride Carbon Dioxide BUN 49 H Creatinine 2.6 H Glucose 189 H POC Glucose 187 H 195 H Lactic Acid Calcium Phosphorus Magnesium AST Alkaline Phosphatase C-Reactive Protein Total Protein Albumin Qvmnt-6-Kivhzucts Rshdb-8-Ctgpegkcb Beta Globulins Gamma Globulins PEP Interpretation Triglycerides LDL Cholesterol Direct HDL Cholesterol Urine WBC (Auto) RYLAN Screen RYLAN Titer Complement C3 Complement C4 Miscellaneous Test 12/23/16 12/23/16 12/23/16 05:15 06:00 06:00 WBC RBC 3.05 L Hgb 9.1 L Hct 27.9 L Plt Count Lymph % (Auto) Clinch % (Auto) Lymph # Seg Neutrophils % 77.5 H Seg Neutrophils # 8.1 H PT INR POC ABG pH POC ABG pCO2 POC ABG pO2 Sodium Potassium Chloride Carbon Dioxide BUN Creatinine Glucose POC Glucose 209 H Lactic Acid Calcium Phosphorus Magnesium AST Alkaline Phosphatase C-Reactive Protein Total Protein Albumin Gcwjl-2-Whhgalibg Dcuax-4-Txarvmsnt Beta Globulins Gamma Globulins PEP Interpretation Triglycerides LDL Cholesterol Direct HDL Cholesterol Urine WBC (Auto) RYLAN Screen RYLAN Titer Complement C3 Complement C4 Miscellaneous Test Flexitest 1 H 12/23/16 12/23/16 12/23/16 11:54 12:05 17:31 WBC RBC Hgb Hct Plt Count Lymph % (Auto) Clinch % (Auto) Lymph # Seg Neutrophils % Seg Neutrophils # PT INR POC ABG pH POC ABG pCO2 POC ABG pO2 187 H Sodium Potassium Chloride Carbon Dioxide BUN Creatinine Glucose POC Glucose 231 H 233 H Lactic Acid Calcium Phosphorus Magnesium AST Alkaline Phosphatase C-Reactive Protein Total Protein Albumin Ocebh-5-Ftgkrpsmv Jjslu-3-Irdbxivmm Beta Globulins Gamma Globulins PEP Interpretation Triglycerides LDL Cholesterol Direct HDL Cholesterol Urine WBC (Auto) RYLAN Screen RYLAN Titer Complement C3 Complement C4 Miscellaneous Test 12/23/16 12/24/16 12/24/16 23:41 05:00 05:00 WBC RBC Hgb Hct Plt Count Lymph % (Auto) [place] % (Auto) Lymph # Seg Neutrophils % Seg Neutrophils # PT INR POC ABG pH POC ABG pCO2 POC ABG pO2 Sodium Potassium 2.7 L* D Chloride Carbon Dioxide BUN 63 H Creatinine 2.8 H Glucose 284 H POC Glucose 283 H Lactic Acid Calcium Phosphorus Magnesium AST Alkaline Phosphatase C-Reactive Protein Total Protein Albumin 2.7 L Iglsq-5-Ufpxpgpvm Zwyhk-6-Pqzcjvyyj Beta Globulins Gamma Globulins PEP Interpretation Triglycerides LDL Cholesterol Direct HDL Cholesterol Urine WBC (Auto) RYLAN Screen RYLAN Titer Complement C3 Complement C4 Miscellaneous Test 12/24/16 12/24/16 12/24/16 05:08 11:53 17:40 WBC RBC Hgb Hct Plt Count Lymph % (Auto) [place] % (Auto) Lymph # Seg Neutrophils % Seg Neutrophils # PT INR POC ABG pH POC ABG pCO2 POC ABG pO2 Sodium Potassium Chloride Carbon Dioxide BUN Creatinine Glucose POC Glucose 312 H 236 H 236 H Lactic Acid Calcium Phosphorus Magnesium AST Alkaline Phosphatase C-Reactive Protein Total Protein Albumin Qoloi-9-Dlflcblau Qtbac-3-Prtzyjgpn Beta Globulins Gamma Globulins PEP Interpretation Triglycerides LDL Cholesterol Direct HDL Cholesterol Urine WBC (Auto) RYLAN Screen RYLAN Titer Complement C3 Complement C4 Miscellaneous Test 0912/25/16 12/25/16 23:47 04:38 05:11 WBC RBC Hgb Hct Plt Count Lymph % (Auto) [place] % (Auto) Lymph # Seg Neutrophils % Seg Neutrophils # PT INR POC ABG pH POC ABG pCO2 POC ABG pO2 Sodium 147 H Potassium 2.8 L* Chloride 109.9 H Carbon Dioxide 20 L BUN 64 H Creatinine 2.8 H Glucose 243 H POC Glucose 280 H 254 H Lactic Acid Calcium Phosphorus Magnesium AST Alkaline Phosphatase C-Reactive Protein Total Protein Albumin 2.7 L Qhovv-6-Circffzvs Osbxc-1-Qwltzmrwi Beta Globulins Gamma Globulins PEP Interpretation Triglycerides LDL Cholesterol Direct HDL Cholesterol Urine WBC (Auto) RYLAN Screen RYLAN Titer Complement C3 Complement C4 Miscellaneous Test 12/25/16 12/25/16 12/25/16 10:08 11:35 18:16 WBC RBC Hgb Hct Plt Count Lymph % (Auto) [place] % (Auto) Lymph # Seg Neutrophils % Seg Neutrophils # PT INR POC ABG pH POC ABG pCO2 POC ABG pO2 Sodium Potassium Chloride Carbon Dioxide BUN Creatinine Glucose POC Glucose 252 H 253 H 230 H Lactic Acid Calcium Phosphorus Magnesium AST Alkaline Phosphatase C-Reactive Protein Total Protein Albumin Zgsfq-0-Ebjyanfbq Wtpmg-1-Qfbgfbhqv Beta Globulins Gamma Globulins PEP Interpretation Triglycerides LDL Cholesterol Direct HDL Cholesterol Urine WBC (Auto) RYLAN Screen RYLAN Titer Complement C3 Complement C4 Miscellaneous Test 12/26/16 12/26/16 12/26/16 00:00 03:30 05:42 WBC RBC Hgb Hct Plt Count Lymph % (Auto) [place] % (Auto) Lymph # Seg Neutrophils % Seg Neutrophils # PT INR POC ABG pH POC ABG pCO2 POC ABG pO2 Sodium 149 H Potassium 2.6 L* Chloride 113.0 H Carbon Dioxide 20 L BUN 61 H Creatinine 2.6 H Glucose 182 H POC Glucose 177 H 183 H Lactic Acid Calcium Phosphorus Magnesium AST 46 H Alkaline Phosphatase C-Reactive Protein Total Protein Albumin 2.7 L Yhbut-9-Glounslgi Uvjxf-0-Aoxvnfcbm Beta Globulins Gamma Globulins PEP Interpretation Triglycerides LDL Cholesterol Direct HDL Cholesterol Urine WBC (Auto) RYLAN Screen RYLAN Titer Complement C3 Complement C4 Miscellaneous Test 12/26/16 12/27/16 12/27/16 18:40 00:22 04:00 WBC RBC Hgb Hct Plt Count Lymph % (Auto) [place] % (Auto) Lymph # Seg Neutrophils % Seg Neutrophils # PT INR POC ABG pH POC ABG pCO2 POC ABG pO2 Sodium 150 H 149 H Potassium 3.1 L 2.9 L* Chloride 116.1 H 112.1 H Carbon Dioxide 17 L 20 L BUN 59 H 43 H Creatinine 2.3 H 1.9 H Glucose 180 H 160 H POC Glucose 182 H Lactic Acid Calcium Phosphorus Magnesium AST 75 H Alkaline Phosphatase C-Reactive Protein Total Protein Albumin 2.9 L Zpqrc-8-Cbplpvoui Rezdp-5-Scrhxckne Beta Globulins Gamma Globulins PEP Interpretation Triglycerides LDL Cholesterol Direct HDL Cholesterol Urine WBC (Auto) RYLAN Screen RYLAN Titer Complement C3 Complement C4 Miscellaneous Test 12/27/16 12/27/16 05:13 12:42 WBC RBC Hgb Hct Plt Count Lymph % (Auto) Clinch % (Auto) Lymph # Seg Neutrophils % Seg Neutrophils # PT INR POC ABG pH POC ABG pCO2 POC ABG pO2 Sodium Potassium Chloride Carbon Dioxide BUN Creatinine Glucose POC Glucose 168 H 163 H Lactic Acid Calcium Phosphorus Magnesium AST Alkaline Phosphatase C-Reactive Protein Total Protein Albumin Gtsua-4-Rhwjrnrvr Mbytt-4-Unhykuwsc Beta Globulins Gamma Globulins PEP Interpretation Triglycerides LDL Cholesterol Direct HDL Cholesterol Urine WBC (Auto) RYLAN Screen RYLAN Titer Complement C3 Complement C4 Miscellaneous Test Chest x-ray: report reviewed, image reviewed
--- NOTE | 2016-12-27 13:36 | Progress Note ---
Assessment and Plan Assessment and plan: 56-year-old woman with a past medical history of klt-hbhpxot-xegycthlt diabetes , hypertension, chronic intermittent left middle toe infection presented to the hospital with right arm weakness and slurred speech. Patient also has history of frequent falls, chronic left knee pain and osteoarthritis and was planned for knee replacement. She was admitted to the hospital for stroke workup, she was found to have acute kidney injury on admission. Her kidney function continued to worsen, she was planned for CT-guided kidney biopsy on 12/15, but while she was at CT scan, she had an episode of cardiac arrest, she received CPR , unfortunately she had a very difficult airway multiple sclerosis for attempts were tried after which she had an emergency cricothyroidotomy. She most likely had prolonged period of anoxia leading to anoxic brain injury. Her mental status has not improved since then since this incidents she has been comatose. Sepsis secondary to UTI * Rocephin stopped * STILL WITH RECURRENT FEVER * started on cefepime and vancomycin * fever- repeat Blood cultures * OBSTRUCTING STONES NOTED ON CT * Klebsiella/candidada * Discussed with DR Paul * Consulted /VASCULAR INPUT NOTED * CT UROGRAM. DISCUSSED WITH NEPHROLOGY-OK TO PROCEED-revealed Renal infarct Renal Infarct * Consult hematology for AC initiation and anticoagulation work up Gram negative septicemia/sepsis * blood culture growing Klebsiella PNA, per ID switch to vancomycin and Cefapime * continue abx till 12/27 * ID input appreciated, abx have been changed to broaden coverage, Obstructing Nephrolithasis- Urogram reveals NO obstruction/Hydronephrosis * left sided. * Urology input noted Acute kidney injury now ESRD and HD dependent * likely secondary to ATN, nephrology input appreciated, continue hemodialysis Toxic metabolic encephalopathy * Anoxic brain injury per MRI Type 2 diabetes * Continue sliding scale * increase basal insulin for better control Hypertension * BP acceptable, continue current management Anoxic Brain Injury/ Metabolic encephalopathy * She had an MRI of her brain on 12/12 did not show any acute changes * MRI brain shows ischemic injury in the subinsular regions, caudate nucleus, right posterior hippocampus * She most likely suffered this anoxic brain injury when she was in cardiac arrest. Acute respiratory failure, on MV greater than 96 hours * initially had emergent cricothyroidotomy on 12/15, and then sp tracheostomy on 12/18 * ON VENT DURING THE NIGHT TIME. Abdominal Distension * fup CT abdomen with PO contrast. Cardiogenic shock * Has been weaned off pressors Hypokalemia-PERSISTENT RECHECK POST REPLACEMENT Replete judiciously, given that she has TAYA Hypomagnesemia Was replaced Hyperlipidemia Continue statin Hypothyroidism TSH within normal limits Continue Synthroid at current dose Obesity Hypoventilation/SHELIA continue vent DVT prophylaxis continue heparin Discussed with family AND UPDATED ON FINDINGS and consultants Prognosis is poor. patient will likely SNF placement vs Hospice Placement, Her has been very resistant to hearing the poor prognosis of his . will need to organize a family meeting to discuss goals of care Family agreeable with Discharge to LTAC Awaiting Bed The high probability of a clinically significant, sudden or life threatening deterioration of the [pulmonary, cardiovascular, renal] system(s) required my full and direct attention, intervention and personal management. The aggregate critical care time was [35] minutes. This time is in addition to time spent performing reported procedures but includes the following: [X] Data Review and interpretation [X] Patient assessment and monitoring of vital signs [X] Documentation [X] Medication orders and management History Interval history: Patient seen and examined, remains in mild respiratory distress and not following commands. Hospitalist Physical - Physical exam Narrative exam: VITAL SIGNS: Reviewed. GENERAL: The patient appeared well nourished and normally developed. Vital signs as documented. HEAD: No signs of head trauma. EYES: Pupils are equal. Extraocular motions intact. EARS: Hearing grossly intact. MOUTH: Oropharynx is normal. NECK: No adenopathy, no JVD, tracheostomy site clean ON VENT CHEST: Chest with Crackles breath sounds bilaterally. CARDIAC: Regular rate and rhythm. S1 and S2, without murmurs, gallops, or rubs. VASCULAR: No Edema. Peripheral pulses normal and equal in all extremities. ABDOMEN: Soft, without detectable tenderness. Distended. No rebound or guarding, and no masses palpated. Bowel Sounds HYPOACTIVE. MUSCULOSKELETAL: Good range of motion of all major joints. Extremities without clubbing, cyanosis or edema. NEUROLOGIC EXAM: More Awake but disoriented not following commands. Unable to assess strength and sensory PSYCHIATRIC: unable to assess SKIN: No rash or lesions. - Constitutional Vitals: Temp Pulse Resp BP Pulse Ox 98.3 F 97 H 20 144/83 99 12/27/16 12:00 12/27/16 13:00 12/27/16 13:00 12/27/16 13:00 12/27/16 13:00 General appearance: Present: severe distress Results - Labs CBC & Chem 7: 12/23/16 05:15 12/27/16 04:00 Labs: Laboratory Last Values WBC 10.4 K/mm3 (4.5-11.0) 12/23/16 05:15 RBC 3.05 M/mm3 (3.65-5.03) L 12/23/16 05:15 Hgb 9.1 gm/dl (10.1-14.3) L 12/23/16 05:15 Hct 27.9 % (30.3-42.9) L 12/23/16 05:15 MCV 92 fl (79-97) 12/23/16 05:15 MCH 30 pg (28-32) 12/23/16 05:15 MCHC 33 % (30-34) 12/23/16 05:15 RDW 14.2 % (13.2-15.2) 12/23/16 05:15 Plt Count 164 K/mm3 (140-440) 12/23/16 05:15 Lymph % (Auto) 16.1 % (13.4-35.0) 12/23/16 05:15 [place] % (Auto) 4.9 % (0.0-7.3) 12/23/16 05:15 Eos % (Auto) 1.2 % (0.0-4.3) 12/23/16 05:15 Baso % (Auto) 0.3 % (0.0-1.8) 12/23/16 05:15 Lymph # 1.7 K/mm3 (1.2-5.4) 12/23/16 05:15 [place] # 0.5 K/mm3 (0.0-0.8) 12/23/16 05:15 Eos # 0.1 K/mm3 (0.0-0.4) 12/23/16 05:15 Baso # 0.0 K/mm3 (0.0-0.1) 12/23/16 05:15 Seg Neutrophils % 77.5 % (40.0-70.0) H 12/23/16 05:15 Seg Neutrophils # 8.1 K/mm3 (1.8-7.7) H 12/23/16 05:15 PT 17.6 Sec. (12.2-14.9) H 12/16/16 06:30 INR 1.45 (0.87-1.13) H 12/16/16 06:30 APTT 27.6 Sec. (24.2-36.6) 12/11/16 23:50 Thrombin Time 16.6 Sec. (15.1-19.6) 12/11/16 23:50 POC ABG pH 7.433 (7.35-7.45) 12/23/16 11:54 POC ABG pCO2 39.9 (35-45) 12/23/16 11:54 POC ABG pO2 187 (80-105) H 12/23/16 11:54 POC ABG HCO3 26.7 12/23/16 11:54 POC ABG Total CO2 28 12/23/16 11:54 POC ABG O2 Sat 100 12/23/16 11:54 POC ABG Base Excess 2 12/23/16 11:54 FiO2 30 % 12/23/16 11:54 Sodium 149 mmol/L (137-145) H 12/27/16 04:00 Potassium 2.9 mmol/L (3.6-5.0) L* 12/27/16 04:00 Chloride 112.1 mmol/L (98-107) H 12/27/16 04:00 Carbon Dioxide 20 mmol/L (22-30) L 12/27/16 04:00 Anion Gap 20 mmol/L 12/27/16 04:00 BUN 43 mg/dL (7-17) H 12/27/16 04:00 Creatinine 1.9 mg/dL (0.7-1.2) H 12/27/16 04:00 Estimated GFR 27 ml/min 12/27/16 04:00 BUN/Creatinine Ratio 22.63 % 12/27/16 04:00 Glucose 160 mg/dL (65-100) H 12/27/16 04:00 POC Glucose 163 (70-105) H 12/27/16 12:42 Lactic Acid 1.80 mmol/L (0.7-2.0) 12/15/16 Unknown Calcium 9.5 mg/dL (8.4-10.2) 12/27/16 04:00 Phosphorus 4.30 mg/dL (2.5-4.5) 12/25/16 04:38 Magnesium 1.70 mg/dL (1.7-2.3) 12/25/16 04:38 Total Bilirubin 0.30 mg/dL (0.1-1.2) 12/27/16 04:00 Direct Bilirubin < 0.2 mg/dL (0-0.2) 12/24/16 05:00 Indirect Bilirubin 0.0 mg/dL 12/16/16 15:30 AST 75 units/L (5-40) H 12/27/16 04:00 ALT 47 units/L (7-56) 12/27/16 04:00 Alkaline Phosphatase 75 units/L (35-129) 12/27/16 04:00 Total Creatine Kinase 73 units/L (30-135) 12/15/16 04:35 Troponin T < 0.010 ng/mL (0.00-0.029) 12/11/16 23:50 C-Reactive Protein 12.10 mg/dL (0.00-1.30) H 12/22/16 15:07 Serum Total Protein 6.1 g/dL (6.1-8.1) 12/14/16 09:00 Total Protein 7.7 g/dL (6.3-8.2) 12/27/16 04:00 Albumin 2.9 g/dL (3.9-5) L 12/27/16 04:00 Albumin/Globulin Ratio 0.6 % 12/27/16 04:00 Mrqoq-7-Xmelmniqb 0.7 g/dL (0.2-0.3) H 12/14/16 09:00 Dgxwa-3-Qhisfisqd 1.0 g/dL (0.5-0.9) H 12/14/16 09:00 Beta Globulins 0.7 g/dL (0.2-0.5) H 12/14/16 09:00 Gamma Globulins 0.7 g/dL (0.8-1.7) L 12/14/16 09:00 Abnorm Protein Band 1 see below 12/14/16 09:00 PEP Interpretation see below H 12/14/16 09:00 Triglycerides 166 mg/dL (2-149) H 12/13/16 03:39 Cholesterol 66 mg/dL (50-199) 12/13/16 03:39 LDL Cholesterol Direct 24 mg/dL (50-130) L 12/13/16 03:39 HDL Cholesterol 9 mg/dL (40-59) L 12/13/16 03:39 Cholesterol/HDL Ratio 7.33 % 12/13/16 03:39 TSH 2.640 mlU/mL (0.270-4.200) 12/12/16 15:23 Urine Color Yellow (Yellow) 12/12/16 21:30 Urine Turbidity Turbid (Clear) 12/12/16 21:30 Urine pH 5.0 (5.0-7.0) 12/12/16 21:30 Ur Specific [place] 1.015 (1.003-1.030) 12/12/16 21:30 Urine Protein 100 mg/dl mg/dL (Negative) 12/12/16 21:30 Urine Glucose (UA) Neg mg/dL (Negative) 12/12/16 21:30 Urine Ketones Neg mg/dL (Negative) 12/12/16 21:30 Urine Blood Lg (Negative) 12/12/16 21:30 Urine Nitrite Neg (Negative) 12/12/16 21:30 Urine Bilirubin Neg (Negative) 12/12/16 21:30 Urine Urobilinogen < 2.0 mg/dL (<2.0) 12/12/16 21:30 Ur Leukocyte Esterase Lg (Negative) 12/12/16 21:30 Urine WBC (Auto) > 182.0 /HPF (0.0-6.0) H 12/12/16 21:30 Urine RBC (Auto) 62.0 /HPF (0.0-6.0) 12/12/16 21:30 U Epithel Cells (Auto) 7.0 /HPF (0-13.0) 12/12/16 21:30 Urine Bacteria (Auto) 4+ /HPF (Negative) 12/12/16 21:30 Urine WBC Clumps 3+ /HPF 12/12/16 21:30 Calcium Oxalate Crystal 3+ 12/12/16 21:30 Random Vancomycin 12.8 ug/mL (0-40.0) 12/24/16 05:00 Urine Opiates Screen Presumptive negative 12/12/16 21:30 Urine Methadone Screen Presumptive negative 12/12/16 21:30 Ur Barbiturates Screen Presumptive negative 12/12/16 21:30 Ur Phencyclidine Scrn Presumptive negative 12/12/16 21:30 Ur Amphetamines Screen Presumptive negative 12/12/16 21:30 U Benzodiazepines Scrn Presumptive negative 12/12/16 21:30 Urine Cocaine Screen Presumptive negative 12/12/16 21:30 U Marijuana (THC) Screen Presumptive negative 12/12/16 21:30 Drugs of Abuse Note Disclamer 12/12/16 21:30 RYLAN Screen Positive (Negative) H 12/14/16 09:00 RYLAN Titer 1:320 (Negative) H 12/14/16 09:00 RYLAN Pattern Homogeneous 12/14/16 09:00 Proteinase 3 (PR3) Ab <1.0 AI (<1.0) 12/14/16 09:00 Myeloperoxidase Ab <1.0 AI (<1.0) 12/14/16 09:00 Glomerular Base Mem IgG <1.0 AI (<1.0) 12/14/16 09:00 Complement C3 206 mg/dL (90-180) H 12/14/16 09:00 Complement C4 56 mg/dL (16-47) H 12/14/16 09:00 Hepatitis A IgM Ab Non-reactive (NonReactive) 12/18/16 18:30 Hep Bs Antigen Non-reactive (Negative) 12/18/16 18:30 Hep B Core IgM Ab Non-reactive (NonReactive) 12/18/16 18:30 Hepatitis C Antibody Non-reactive (NonReactive) 12/18/16 18:30 Renal Biopsy Scanned into [employer] [facility] 12/15/16 13:43 Miscellaneous Test Flexitest 1 H 12/23/16 06:00 - Imaging and Cardiology Abdominal x-ray: image reviewed (renal infarct)
[2016-12-27 14:21] LABS: BUN/Creatinine Ratio 26.11; Calcium 9.4 mg/dL (8.4-10.2); Chloride 115.9 mmol/L (98-107)
[2016-12-27 14:26] LABS: Potassium 3.6 mmol/L (3.6-5.0)
--- NOTE | 2016-12-27 16:52 | Progress Note ---
Assessment and Plan - Patient Problems (1) Acute kidney failure with tubular necrosis Current Visit: Yes Status: Acute Plan to address problem: BUN/cr at 47/1.8mg/dl s/p HD yesterday mainly for IV contrast removal. pt remains non-oliguric. CT urogram shows lack of enhancement and hypodensity at L renal parenchyma most c/w renal infarct. recommend hematology consult to rule out underlying hypercoagulability. however no evidence of acute hydro present. Cont IV 1/2 NS + Kcl. D/w Dr Espinosa (2) Renal infarction Current Visit: Yes Status: Acute Plan to address problem: recommend hematology consult to rule out underlying hypercoagulability and possible anticoagulation (3) Sepsis due to urinary tract infection Current Visit: Yes Status: Acute Plan to address problem: Continue antibiotics and follow (4) Type 2 diabetes mellitus Current Visit: Yes Status: Chronic Qualifiers: Diabetes mellitus complication status: D Diabetes mellitus complication detail: D Diabetic retinopathy severity: D Proliferative retinopathy type: P Diabetes mellitus macular edema: D Diabetes mellitus group home insulin use : D Laterality: L Chronic kidney disease stage: C Plan to address problem: Blood sugar control by primary attending (5) Hypertension Current Visit: Yes Status: Chronic Qualifiers: Hypertension type: H Plan to address problem: Blood pressure improved on low-dose beta ariana and hydralazine prn, with parameters to hold (6) Anoxic encephalopathy Current Visit: Yes Status: Acute Plan to address problem: Continue management by neurologist. [place] for improvement in neurologic status (7) Hypokalemia Current Visit: Yes Status: Acute Plan to address problem: K supplementation with IV KCl. cont maintenance 1/2NS + 40meq/L Kcl (8) Hypernatremia Current Visit: Yes Status: Acute Plan to address problem: cont 300ml q4h free water flushes via NGT along with IV 1/2 NS. (9) Left ureteral calculus Current Visit: Yes Status: Acute Plan to address problem: follow /IR recommendations Subjective Date of service: 12/27/16 Principal diagnosis: Acute resp. failure Interval history: pt not following commands, in no acute distress. Objective - Vital Signs Vital signs: Vital Signs - 12hr 12/27/16 12/27/16 12/27/16 05:00 05:30 06:00 Temperature Pulse Rate 108 H 102 H 105 H Pulse Rate [ From Monitor] Respiratory 18 19 20 Rate Blood Pressure 134/88 134/88 134/88 O2 Sat by Pulse 99 98 98 Oximetry O2 Sat by Pulse Oximetry [ Assessment] 12/27/16 12/27/16 12/27/16 06:21 06:31 07:00 Temperature Pulse Rate 110 H 112 H Pulse Rate [ From Monitor] Respiratory 19 18 20 Rate Blood Pressure 136/86 140/84 O2 Sat by Pulse 99 99 99 Oximetry O2 Sat by Pulse Oximetry [ Assessment] 12/27/16 12/27/16 12/27/16 07:31 08:00 08:15 Temperature 101.0 F H Pulse Rate 109 H 108 H Pulse Rate [ 108 H From Monitor] Respiratory 19 23 Rate Blood Pressure 140/84 126/74 O2 Sat by Pulse 99 98 98 Oximetry O2 Sat by Pulse 98 Oximetry [ Assessment] 12/27/16 12/27/16 12/27/16 08:31 09:00 09:26 Temperature Pulse Rate 110 H 109 H 109 H Pulse Rate [ From Monitor] Respiratory 22 22 Rate Blood Pressure 126/74 147/78 147/78 O2 Sat by Pulse 99 99 Oximetry O2 Sat by Pulse Oximetry [ Assessment] 12/27/16 12/27/16 12/27/16 09:31 10:01 10:31 Temperature Pulse Rate 109 H 108 H 96 H Pulse Rate [ From Monitor] Respiratory 24 27 H 24 Rate Blood Pressure 147/78 135/75 135/75 O2 Sat by Pulse 99 100 99 Oximetry O2 Sat by Pulse Oximetry [ Assessment] 12/27/16 12/27/16 12/27/16 11:00 11:31 12:00 Temperature 98.3 F Pulse Rate 97 H 98 H 98 H Pulse Rate [ From Monitor] Respiratory 23 22 22 Rate Blood Pressure 148/88 148/88 150/88 O2 Sat by Pulse 99 99 100 Oximetry O2 Sat by Pulse Oximetry [ Assessment] 12/27/16 12/27/16 12/27/16 12:31 13:00 13:31 Temperature Pulse Rate 98 H 97 H 100 H Pulse Rate [ From Monitor] Respiratory 20 20 22 Rate Blood Pressure 150/88 144/83 144/83 O2 Sat by Pulse 100 99 99 Oximetry O2 Sat by Pulse Oximetry [ Assessment] 12/27/16 12/27/16 12/27/16 14:00 14:31 15:00 Temperature Pulse Rate 98 H 100 H 98 H Pulse Rate [ From Monitor] Respiratory 22 23 21 Rate Blood Pressure 142/70 142/70 127/70 O2 Sat by Pulse 100 100 100 Oximetry O2 Sat by Pulse Oximetry [ Assessment] 12/27/16 12/27/16 12/27/16 15:31 15:34 15:56 Temperature 100.5 F H Pulse Rate 102 H Pulse Rate [ From Monitor] Respiratory 20 Rate Blood Pressure 127/70 O2 Sat by Pulse 99 Oximetry O2 Sat by Pulse 96 Oximetry [ Assessment] 12/27/16 16:00 Temperature Pulse Rate 98 H Pulse Rate [ From Monitor] Respiratory 21 Rate Blood Pressure 149/83 O2 Sat by Pulse 99 Oximetry O2 Sat by Pulse Oximetry [ Assessment] - General Appearance General appearance: well-developed, well-nourished, appears stated age, comatose EENT: ATNC, PERRL, mucous membranes moist Neck: no JVD Respiratory: Present: Clear to Ascultation Cardiology: regular, S1S2 Gastrointestinal: normoactive bowel sounds, obese Integumentary: no rash, other (no edema ) Neurologic: obtunded - Lab 12/23/16 05:15 12/27/16 13:50 Most recent lab results Calcium 9.4 mg/dL (8.4-10.2) 12/27/16 13:50 Phosphorus 4.30 mg/dL (2.5-4.5) 12/25/16 04:38 Magnesium 1.70 mg/dL (1.7-2.3) 12/25/16 04:38
[2016-12-27] MEDS ORDERED: D5W/0.45% NACL/KCL 40 MEQ 40 MEQ/1,000 ML BAG IV SCH (17:00)
[2016-12-27] MEDS: KCL 40 MEQ in NACL 0.45% 1000 ML 1,000 ML IV SCH (18:53)
[2016-12-27] MEDS: ZOCOR PO SCH (22:16)
--- NOTE | 2016-12-27 22:23 | Consultation ---
History of Present Illness - Reason for Consult Consult date: 12/27/16 Renal infarct. Requesting physician: FRANCISCO JAVIER ANGELO - History of Present Illness Thank you for this consult.patient seen/examined, record reviewed, kindly asked to see this patient, who had a contrast based procedure,dialyzed following that. Ct of abd/pelvic suggestive of renal infarct, hence this consult. No documented prior hx of hypercoagulable state.Will do some w/up for that.she does have 3rd left toe ischemic wound. Past History Past Medical History: diabetes, hypertension, other (frequent falls ) Social history: other (lives with ). denies: smoking, alcohol abuse, IV drug use Family history: no significant family history Medications and Allergies Allergies Allergy/AdvReac Type Severity Reaction Status Date / Time sulfamethoxazole Allergy Unknown Verified 12/11/16 23:49 [From Bactrim] trimethoprim [From Bactrim] Allergy Unknown Verified 12/11/16 23:49 Home Medications Medication Instructions Recorded Confirmed Last Taken Type Amitriptyline [Elavil] 100 mg PO QHS 12/12/16 12/12/16 12/11/16 History Atenolol [Tenormin] 50 mg PO DAILY 12/12/16 12/12/16 12/11/16 History Gabapentin [Neurontin] 800 mg PO Q8H 12/12/16 12/12/16 12/11/16 History HYDROcodone/APAP 5-325 [[place] 1 each PO Q6HR PRN 12/12/16 12/12/16 12/11/16 History 5/325] Levothyroxine [Synthroid] 100 mcg PO QAM 12/12/16 12/12/16 12/11/16 History Lisinopril [Zestril] 20 mg PO QDAY 12/12/16 12/12/16 12/11/16 History Simvastatin [Zocor TAB] 40 mg PO QHS 12/12/16 12/12/16 12/11/16 History glipiZIDE [Glucotrol] 10 mg PO BID 12/12/16 12/12/16 12/11/16 History metFORMIN [Glucophage] 1,000 mg PO BID 12/12/16 12/12/16 12/11/16 History metFORMIN [Glucophage] 500 mg PO QDAY 12/12/16 12/12/16 12/11/16 History Active Meds: Active Medications Acetaminophen (Tylenol) 650 mg PO Q4H PRN PRN Reason: Pain, Mild (1-3) Last Admin: 12/27/16 18:09 Dose: 650 mg Albumin Human ([place] 25% (Albumin)) 12.5 gm IV DIPESH PRN PRN Reason: Hypotension Lipase/Protease/Amylase (Pancreaze Dr 10,500 Unit) 1 each FEEDTUBE PRN PRN PRN Reason: For Clogged Feeding Tube Artificial Tears (Isopto Tears 0.5%) 2 drops OU Q4H PRN PRN Reason: Dry Eye(s) Last Admin: 12/16/16 05:25 Dose: 2 drops Aspirin (Aspirin) 325 mg PO QDAY [facility] Last Admin: 12/27/16 09:26 Dose: 325 mg Bisacodyl (Dulcolax) 10 mg MS QDAY PRN PRN Reason: Constipation Carvedilol (Coreg) 3.125 mg PO BID [facility] Last Admin: 12/27/16 22:16 Dose: 3.125 mg Dextrose (D50w (25gm)) 50 ml IV PRN PRN PRN Reason: Hypoglycemia Last Admin: 12/15/16 10:25 Dose: 50 ml Famotidine (Pepcid) 20 mg PO DAILY [facility] Last Admin: 12/27/16 09:26 Dose: 20 mg Heparin Sodium (Porcine) (Heparin) 5,000 unit SUB-Q Q8HR [facility] Last Admin: 12/27/16 22:16 Dose: 5,000 unit Heparin Sodium (Porcine) (Heparin) 5,000 unit IV DIPESH PRN PRN Reason: dwell Last Admin: 12/26/16 20:42 Dose: 5,000 unit Hydralazine HCl (Apresoline) 5 mg IV Q6H PRN PRN Reason: Keep SBP between 160-185 mm Hg Last Admin: 12/26/16 05:18 Dose: 5 mg Fluconazole (Diflucan) 200 mg in 100 mls @ 100 mls/hr IV Q24HR [facility] Last Admin: 12/27/16 09:25 Dose: 100 mls/hr Sodium Chloride (Nacl 0.9%) 100 mls @ 999 mls/hr IV DIPESH PRN PRN Reason: Hypotension Ceftriaxone Sodium (Rocephin/Ns 2 Gm/100 Ml) 2 gm in 100 mls @ 200 mls/hr IV Q24HR L[place]ARD PRN Reason: Protocol Potassium Chloride 40 meq/ (Sodium Chloride) 1,020 mls @ 75 mls/hr IV DIRECT [facility] Last Admin: 12/27/16 18:53 Dose: 75 mls/hr Insulin Aspart (Novolog) 0 units SUB-Q Q6HR [place] PRN Reason: Protocol Last Admin: 12/27/16 18:12 Dose: Not Given Insulin Detemir (Levemir) 17 units SUB-Q DAILY [facility] Last Admin: 12/27/16 09:26 Dose: 17 units Magnesium Hydroxide (Milk Of Magnesia) 30 ml PO Q4H PRN PRN Reason: Constipation Ondansetron HCl (Zofran) 4 mg IV Q8H PRN PRN Reason: N/V unrelieved by Reglan Simple Syrup (Simple Syrup) 15 ml FEEDTUBE PRN PRN PRN Reason: Hypoglycemia Simple Syrup (Simple Syrup) 30 ml FEEDTUBE PRN PRN PRN Reason: Hypoglycemia Simvastatin (Zocor) 20 mg PO QHS [facility] Last Admin: 12/27/16 22:16 Dose: 20 mg Sodium Bicarbonate (Sodium Bicarbonate) 325 mg FEEDTUBE PRN PRN PRN Reason: For Clogged Feeding Tube Sodium Chloride (Sodium Chloride Flush Syringe 10 Ml) 10 ml IV PRN PRN PRN Reason: LINE FLUSH Review of Systems Breasts: deferred Exam - Constitutional Vitals: Temp Pulse Resp BP Pulse Ox 100.0 F H 105 H 23 122/85 100 12/27/16 19:45 12/27/16 22:16 12/27/16 19:29 12/27/16 22:16 12/27/16 19:31 General appearance: Present: mild distress, well-nourished - EENT Eyes: Present: PERRL ENT: hearing intact, clear oral mucosa - Neck Neck: Present: supple, normal ROM - Respiratory Respiratory effort: normal Respiratory: bilateral: CTA - Cardiovascular Heart Sounds: Present: S1 & S2. Absent: rub, click - Extremities Extremities: pulses symmetrical, No edema Peripheral Pulses: within normal limits - Abdominal General gastrointestinal: Present: soft, non-tender, non-distended, normal bowel sounds Female genitourinary: Present: deferred - Rectal Rectal Exam: deferred - Integumentary Integumentary: Present: clear, warm, dry Results - Labs CBC & Chem 7: 12/23/16 05:15 12/27/16 13:50 Labs: Abnormal lab results 12/26/16 12/27/16 12/27/16 Range/Units 11:14 00:22 04:00 Sodium 149 H (137-145) mmol/L Potassium 2.9 L* (3.6-5.0) mmol/L Chloride 112.1 H (98-107) mmol/L Carbon Dioxide 20 L (22-30) mmol/L BUN 43 H (7-17) mg/dL Creatinine 1.9 H (0.7-1.2) mg/dL Glucose 160 H (65-100) mg/dL POC Glucose 195 H 182 H (70-105) AST 75 H (5-40) units/L Albumin 2.9 L (3.9-5) g/dL 12/27/16 12/27/16 12/27/16 Range/Units 05:13 12:42 13:50 Sodium 150 H (137-145) mmol/L Potassium (3.6-5.0) mmol/L Chloride 115.9 H (98-107) mmol/L Carbon Dioxide 19 L (22-30) mmol/L BUN 47 H (7-17) mg/dL Creatinine 1.8 H (0.7-1.2) mg/dL Glucose 158 H (65-100) mg/dL POC Glucose 168 H 163 H (70-105) AST (5-40) units/L Albumin (3.9-5) g/dL 12/27/16 Range/Units 18:15 Sodium (137-145) mmol/L Potassium (3.6-5.0) mmol/L Chloride (98-107) mmol/L Carbon Dioxide (22-30) mmol/L BUN (7-17) mg/dL Creatinine (0.7-1.2) mg/dL Glucose (65-100) mg/dL POC Glucose 137 H (70-105) AST (5-40) units/L Albumin (3.9-5) g/dL Assessment and Plan - Patient Problems (1) Chronic ulcer of toe of left foot Current Visit: Yes Status: Acute Qualifiers: Non-pressure ulcer stage: N Plan to address problem: this may go along the idea of easy infarct in other places, as a result of micro thrombi formation, and may be a reason to anticoagulate. Will do w/up and see. (2) Renal infarct Current Visit: Yes Status: Acute
[2016-12-28] MEDS: NOVOLOG SUB-Q SCH ×4 (01:06→17:24)
[2016-12-28 03:08] LABS: Albumin 2.8 g/dL (3.9-5); Albumin/Globulin Ratio 0.7 %; BUN/Creatinine Ratio 26.66; Bilirubin,Total 0.2 mg/dL (0.1-1.2); Calcium 9.4 mg/dL (8.4-10.2); Chloride 112.5 mmol/L (98-107); Potassium 3.1 mmol/L (3.6-5.0); Total Protein 6.8 g/dL (6.3-8.2)
[2016-12-28] MEDS: HEPARIN SUB-Q SCH ×3 (06:33→22:02)
[2016-12-28] MEDS: DIFLUCAN 200 MG/100 ML BAG IV SCH (09:58)
[2016-12-28] MEDS: ROCEPHIN/NS 2 GM/100 ML 2 GM/100 ML BAG IV SCH (09:58)
[2016-12-28] MEDS: ASPIRIN PO SCH (09:59)
[2016-12-28] MEDS: KCL 40 MEQ in NACL 0.45% 1000 ML 1,000 ML IV SCH ×2 (09:59→22:35)
[2016-12-28] MEDS: COREG PO SCH ×2 (09:59→22:01)
[2016-12-28] MEDS: LEVEMIR SUB-Q SCH (09:59)
[2016-12-28] MEDS: PEPCID PO SCH (09:59)
--- NOTE | 2016-12-28 12:00 | Progress Note ---
Assessment and Plan Assessment: 1) Sepsis: improving. Initial etiology most likely UTI/bacteremia. Etiology ? renal infarct ? pyelonephritis -repeat blood cx negative -LE US negative for DVT -CRP=12 -Procalcitonin=0.7 2) Complicated UTI with left calculi x 2 and left sided infarct versus pyelonephritis: -Secondary to Klebsiella. -Renal US normal. -Repeat urine cx + Lyndsay-likely a colonizer -CT showed bilateral renal calculi with 2 obstructive calculi to the left -CT urogram showed renal infarct versus pyelonephritis on the left upper pole 3) Klebsiella bacteremia: from UTI. Repeat blood cx 12/20 negative 4) ?Lupus 5) Respiratory failure 6) Encephalopathy ? anoxic ? metabolic 7) Abdominal distention ? ileus 8) TAYA-better Plan: -continue fluconazole and ceftriaxone -upon discharge will do ceftriaxone 2 g IV q day and fluconazole 200 mg PO q day total 14 days from 12/20 to 01/02/17. Outpatient parenteral antibiotics orders sent to assistant case manager -check left foot doppler arterial US -remove femoral central line when possible I will be covering the weekend Thank you Dr Espinosa for your consultation, will follow up with you. Leta Xavier MD Infectious Diseases Specialist [facility], [place], [facility] ([facility]) [phone] Subjective Date of service: 12/28/16 Principal diagnosis: Acute resp. failure Interval history: Fever resolved overnight, tmax 99.7, on the vent via trach, more alert and tracking, currently on T-piece, FIO2 28% with no noted acute distress. Current Antimicrobials: ceftriaxone 12/27 fluconazole 12/24 Previous Antimicrobials: ceftriaxone 12/16 vanco 12/22 cefepime 12/22 Microbiology: Blood cultures: 12/12 Klebsiella 9/2 neg 12/25 ngtd Urine cultures: 12/13 Klebsiella / Lyndsay Respiratory cultures: 12/15 Lyndsay 12/22 pending Wound cultures: Stool cultures: Other: Objective - Exam Narrative Exam: General appearance: more alert on t-piece in NAD Eyes: anicteric sclerae, moist conjunctivae; PERRLA HENT: Atraumatic; oropharynx limited Neck: Trach Lungs: suzan rhonchi CV: RRR, no murmurs Abdomen: Soft, distended, tense, increased BS Extremities: + edema, no extremity lymphadenopathy Skin: +cold left foot Psych: alert Neuro: alert, upper extremities contracted Lines: femoral HD cath. [place] in place - Constitutional Vitals: Vital Signs Temp Pulse Resp BP Pulse Ox 98.7 F 100 H 26 H 126/79 97 12/28/16 11:45 12/28/16 11:31 12/28/16 11:31 12/28/16 11:31 12/28/16 11:31 Temperature -Last 24 Hours Temperature 98.7 F Temperature 98.9 F Temperature 99.4 F Temperature 99.7 F Temperature 100.0 F Temperature 100.5 F Temperature 98.3 F - Labs CBC & Chem 7: 12/23/16 05:15 12/28/16 01:30 Labs: Abnormal lab results 12/26/16 12/27/16 12/27/16 Range/Units 11:14 12:42 13:50 Sodium 150 H (137-145) mmol/L Potassium (3.6-5.0) mmol/L Chloride 115.9 H (98-107) mmol/L Carbon Dioxide 19 L (22-30) mmol/L BUN 47 H (7-17) mg/dL Creatinine 1.8 H (0.7-1.2) mg/dL Glucose 158 H (65-100) mg/dL POC Glucose 195 H 163 H (70-105) AST (5-40) units/L Lactate Dehydrogenase (91-180) units/L Albumin (3.9-5) g/dL 12/27/16 12/27/16 12/28/16 Range/Units 18:15 23:47 01:30 Sodium (137-145) mmol/L Potassium (3.6-5.0) mmol/L Chloride (98-107) mmol/L Carbon Dioxide (22-30) mmol/L BUN (7-17) mg/dL Creatinine (0.7-1.2) mg/dL Glucose (65-100) mg/dL POC Glucose 137 H 221 H (70-105) AST (5-40) units/L Lactate Dehydrogenase 275 H (91-180) units/L Albumin (3.9-5) g/dL 12/28/16 12/28/16 12/28/16 Range/Units 01:30 05:36 11:39 Sodium (137-145) mmol/L Potassium 3.1 L (3.6-5.0) mmol/L Chloride 112.5 H (98-107) mmol/L Carbon Dioxide 17 L (22-30) mmol/L BUN 48 H (7-17) mg/dL Creatinine 1.8 H (0.7-1.2) mg/dL Glucose 185 H (65-100) mg/dL POC Glucose 182 H 295 H (70-105) AST 70 H (5-40) units/L Lactate Dehydrogenase (91-180) units/L Albumin 2.8 L (3.9-5) g/dL
--- NOTE | 2016-12-28 13:03 | Progress Note ---
Assessment and Plan - Patient Problems (1) Acute kidney failure with tubular necrosis Current Visit: Yes Status: Acute Plan to address problem: BUN/cr stable at 48/1.8mg/dl off HD since 12/26. pt with adequate urine output. no indications for further HD at present, can remove vascath. D/w ICU team. Cont IV 1/2 NS + Kcl. (2) Renal infarction Current Visit: Yes Status: Acute Plan to address problem: hematology consulted to rule out underlying hypercoagulability and possible anticoagulation (3) Sepsis due to urinary tract infection Current Visit: Yes Status: Acute Plan to address problem: Continue antibiotics and follow (4) Type 2 diabetes mellitus Current Visit: Yes Status: Chronic Qualifiers: Diabetes mellitus complication status: D Diabetes mellitus complication detail: D Diabetic retinopathy severity: D Proliferative retinopathy type: P Diabetes mellitus macular edema: D Diabetes mellitus group home insulin use : D Laterality: L Chronic kidney disease stage: C Plan to address problem: Blood sugar control by primary attending (5) Hypertension Current Visit: Yes Status: Chronic Qualifiers: Hypertension type: H Plan to address problem: Blood pressure improved on low-dose beta ariana and hydralazine prn, with parameters to hold (6) Anoxic encephalopathy Current Visit: Yes Status: Acute Plan to address problem: Continue management by neurologist. [place] for improvement in neurological status (7) Hypokalemia Current Visit: Yes Status: Acute Plan to address problem: K supplementation with IV KCl. cont maintenance 1/2NS + 40meq/L Kcl (8) Hypernatremia Current Visit: Yes Status: Acute Plan to address problem: cont 300ml q4h free water flushes via NGT along with IV 1/2 NS. na improving (9) Left ureteral calculus Current Visit: Yes Status: Acute Plan to address problem: follow /IR recommendations Subjective Date of service: 12/28/16 Principal diagnosis: Acute resp. failure Interval history: pt opening eyes spontaneously, but not following commands. Objective - Vital Signs Vital signs: Vital Signs - 12hr 12/28/16 12/28/16 12/28/16 01:00 01:11 01:21 Temperature Pulse Rate 98 H 100 H 98 H Pulse Rate [ 98 H From Monitor] Respiratory 19 19 20 Rate Blood Pressure 139/73 139/73 148/91 O2 Sat by Pulse 99 100 100 Oximetry O2 Sat by Pulse Oximetry [ Assessment] 12/28/16 12/28/16 12/28/16 01:31 01:41 01:51 Temperature Pulse Rate 95 H 94 H 99 H Pulse Rate [ From Monitor] Respiratory 18 18 19 Rate Blood Pressure 148/91 148/91 148/91 O2 Sat by Pulse 100 99 100 Oximetry O2 Sat by Pulse Oximetry [ Assessment] 12/28/16 12/28/16 12/28/16 02:00 02:11 02:21 Temperature Pulse Rate 97 H 99 H 101 H Pulse Rate [ From Monitor] Respiratory 19 22 18 Rate Blood Pressure 130/78 130/78 139/73 O2 Sat by Pulse 100 100 100 Oximetry O2 Sat by Pulse Oximetry [ Assessment] 12/28/16 12/28/16 12/28/16 02:31 02:41 02:51 Temperature Pulse Rate 101 H 101 H 101 H Pulse Rate [ From Monitor] Respiratory 20 19 20 Rate Blood Pressure 139/73 139/73 139/73 O2 Sat by Pulse 99 100 99 Oximetry O2 Sat by Pulse Oximetry [ Assessment] 12/28/16 12/28/16 12/28/16 03:00 03:11 03:21 Temperature Pulse Rate 99 H 96 H 99 H Pulse Rate [ From Monitor] Respiratory 19 19 18 Rate Blood Pressure 127/76 127/76 127/76 O2 Sat by Pulse 99 99 99 Oximetry O2 Sat by Pulse Oximetry [ Assessment] 12/28/16 12/28/16 12/28/16 03:31 03:41 03:51 Temperature Pulse Rate 98 H 92 H 101 H Pulse Rate [ From Monitor] Respiratory 17 19 22 Rate Blood Pressure 127/76 127/76 127/76 O2 Sat by Pulse 99 99 99 Oximetry O2 Sat by Pulse Oximetry [ Assessment] 12/28/16 12/28/16 12/28/16 04:00 04:45 05:00 Temperature 99.4 F Pulse Rate 101 H Pulse Rate [ 98 H From Monitor] Respiratory 20 20 Rate Blood Pressure O2 Sat by Pulse 100 100 Oximetry O2 Sat by Pulse Oximetry [ Assessment] 12/28/16 12/28/16 12/28/16 05:31 05:36 06:01 Temperature Pulse Rate 99 H 99 H 98 H Pulse Rate [ From Monitor] Respiratory 19 18 Rate Blood Pressure 130/81 140/80 O2 Sat by Pulse 100 100 Oximetry O2 Sat by Pulse Oximetry [ Assessment] 12/28/16 12/28/16 12/28/16 06:31 07:01 07:10 Temperature Pulse Rate 94 H 98 H Pulse Rate [ From Monitor] Respiratory 16 19 Rate Blood Pressure 140/80 119/80 O2 Sat by Pulse 100 100 98 Oximetry O2 Sat by Pulse Oximetry [ Assessment] 12/28/16 12/28/16 12/28/16 07:15 07:23 07:31 Temperature 98.9 F Pulse Rate 101 H Pulse Rate [ From Monitor] Respiratory 21 Rate Blood Pressure 119/80 O2 Sat by Pulse 99 Oximetry O2 Sat by Pulse 98 Oximetry [ Assessment] 12/28/16 12/28/16 12/28/16 08:00 08:31 09:01 Temperature Pulse Rate 103 H 105 H 104 H Pulse Rate [ 103 H From Monitor] Respiratory 26 H 24 21 Rate Blood Pressure 115/81 115/81 120/71 O2 Sat by Pulse 100 99 99 Oximetry O2 Sat by Pulse Oximetry [ Assessment] 12/28/16 12/28/16 12/28/16 09:31 09:59 10:00 Temperature Pulse Rate 107 H 105 H 104 H Pulse Rate [ From Monitor] Respiratory 22 24 Rate Blood Pressure 120/71 120/71 124/73 O2 Sat by Pulse 99 99 Oximetry O2 Sat by Pulse Oximetry [ Assessment] 12/28/16 12/28/16 12/28/16 10:31 11:00 11:31 Temperature Pulse Rate 98 H 100 H 100 H Pulse Rate [ From Monitor] Respiratory 16 21 26 H Rate Blood Pressure 124/73 126/79 126/79 O2 Sat by Pulse 100 98 97 Oximetry O2 Sat by Pulse Oximetry [ Assessment] 12/28/16 12/28/16 11:45 12:00 Temperature 98.7 F Pulse Rate 98 H Pulse Rate [ From Monitor] Respiratory 24 Rate Blood Pressure 135/81 O2 Sat by Pulse 97 Oximetry O2 Sat by Pulse Oximetry [ Assessment] - General Appearance General appearance: well-developed, well-nourished, appears stated age EENT: ATNC, PERRL, mucous membranes moist Neck: no JVD Respiratory: Present: Clear to Ascultation Cardiology: regular, S1S2 Gastrointestinal: normoactive bowel sounds Integumentary: no rash, other (no edema ) Neurologic: disoriented, aphasic Psychiatric: mood/affect appropriate, cooperative - Lab 12/23/16 05:15 12/28/16 01:30 Most recent lab results Calcium 9.4 mg/dL (8.4-10.2) 12/28/16 01:30 Phosphorus 4.30 mg/dL (2.5-4.5) 12/25/16 04:38 Magnesium 1.70 mg/dL (1.7-2.3) 12/25/16 04:38
--- NOTE | 2016-12-28 13:49 | Progress Note ---
Assessment and Plan Imp: 1. UTI/bacteremia/sepsis 2. TAYA -> ATN 3. S/p CP arrest 4. Anoxic encephalopathy 5. S/p Trach 6. Morbid obesity 7. Acute respiratory failure, hypoxia 8. ? Ileus 9. Nephrolithiasis Rec: 1. ABX as per ID 2. T-piece trials daily; rest on PSV at night although may be able to do 24/7 Tpiece soon; return to AC prn only 3. Will need PEG at some point 4. Holding all sedation; monitor neuro status 5. DVT PPx 6. K repletion prn; defer this to renal who is managing 7. Agree w/ LTAC 8. Try increasing TFs to goal 9. Complex decision-making/patient No family present today. Subjective Date of service: 12/28/16 Principal diagnosis: Acute resp. failure Interval history: No events. Tolerating Tpiece. Was on PSV overnight. Appears to be tracking today but not following commands. Tolerating TFs. Active Medications Acetaminophen (Tylenol) 650 mg PO Q4H PRN PRN Reason: Pain, Mild (1-3) Last Admin: 12/27/16 18:09 Dose: 650 mg Albumin Human (Alburx 25% (Albumin)) 12.5 gm IV DIPESH PRN PRN Reason: Hypotension Lipase/Protease/Amylase (Pancreaze Dr 10,500 Unit) 1 each FEEDTUBE PRN PRN PRN Reason: For Clogged Feeding Tube Artificial Tears (Isopto Tears 0.5%) 2 drops OU Q4H PRN PRN Reason: Dry Eye(s) Last Admin: 12/16/16 05:25 Dose: 2 drops Aspirin (Aspirin) 325 mg PO QDAY [facility] Last Admin: 12/28/16 09:59 Dose: 325 mg Bisacodyl (Dulcolax) 10 mg NC QDAY PRN PRN Reason: Constipation Carvedilol (Coreg) 3.125 mg PO BID [facility] Last Admin: 12/28/16 09:59 Dose: 3.125 mg Dextrose (D50w (25gm)) 50 ml IV PRN PRN PRN Reason: Hypoglycemia Last Admin: 12/15/16 10:25 Dose: 50 ml Famotidine (Pepcid) 20 mg PO DAILY [facility] Last Admin: 12/28/16 09:59 Dose: 20 mg Heparin Sodium (Porcine) (Heparin) 5,000 unit SUB-Q Q8HR [facility] Last Admin: 12/28/16 06:33 Dose: 5,000 unit Heparin Sodium (Porcine) (Heparin) 5,000 unit IV DIPESH PRN PRN Reason: dwell Last Admin: 12/26/16 20:42 Dose: 5,000 unit Hydralazine HCl (Apresoline) 5 mg IV Q6H PRN PRN Reason: Keep SBP between 160-185 mm Hg Last Admin: 12/26/16 05:18 Dose: 5 mg Fluconazole (Diflucan) 200 mg in 100 mls @ 100 mls/hr IV Q24HR [facility] Last Admin: 12/28/16 09:58 Dose: 100 mls/hr Sodium Chloride (Nacl 0.9%) 100 mls @ 999 mls/hr IV DIPESH PRN PRN Reason: Hypotension Ceftriaxone Sodium (Rocephin/Ns 2 Gm/100 Ml) 2 gm in 100 mls @ 200 mls/hr IV Q24HR [facility] PRN Reason: Protocol Last Admin: 12/28/16 09:58 Dose: 200 mls/hr Potassium Chloride 40 meq/ (Sodium Chloride) 1,020 mls @ 75 mls/hr IV DIRECT [facility] Last Admin: 12/28/16 09:59 Dose: 75 mls/hr Insulin Aspart (Novolog) 0 units SUB-Q Q6HR [facility] PRN Reason: Protocol Last Admin: 12/28/16 12:52 Dose: 6 units Insulin Detemir (Levemir) 17 units SUB-Q DAILY [facility] Last Admin: 12/28/16 09:59 Dose: 17 units Magnesium Hydroxide (Milk Of Magnesia) 30 ml PO Q4H PRN PRN Reason: Constipation Ondansetron HCl (Zofran) 4 mg IV Q8H PRN PRN Reason: N/V unrelieved by Reglan Simple Syrup (Simple Syrup) 15 ml FEEDTUBE PRN PRN PRN Reason: Hypoglycemia Simple Syrup (Simple Syrup) 30 ml FEEDTUBE PRN PRN PRN Reason: Hypoglycemia Simvastatin (Zocor) 20 mg PO QHS [facility] Last Admin: 12/27/16 22:16 Dose: 20 mg Sodium Bicarbonate (Sodium Bicarbonate) 325 mg FEEDTUBE PRN PRN PRN Reason: For Clogged Feeding Tube Sodium Chloride (Sodium Chloride Flush Syringe 10 Ml) 10 ml IV PRN PRN PRN Reason: LINE FLUSH Objective Vital Signs - 12hr 12/28/16 12/28/16 12/28/16 01:51 02:00 02:11 Temperature Pulse Rate 99 H 97 H 99 H Pulse Rate [ From Monitor] Respiratory 19 19 22 Rate Blood Pressure 148/91 130/78 130/78 O2 Sat by Pulse 100 100 100 Oximetry O2 Sat by Pulse Oximetry [ Assessment] 12/28/16 12/28/16 12/28/16 02:21 02:31 02:41 Temperature Pulse Rate 101 H 101 H 101 H Pulse Rate [ From Monitor] Respiratory 18 20 19 Rate Blood Pressure 139/73 139/73 139/73 O2 Sat by Pulse 100 99 100 Oximetry O2 Sat by Pulse Oximetry [ Assessment] 12/28/16 12/28/16 12/28/16 02:51 03:00 03:11 Temperature Pulse Rate 101 H 99 H 96 H Pulse Rate [ From Monitor] Respiratory 20 19 19 Rate Blood Pressure 139/73 127/76 127/76 O2 Sat by Pulse 99 99 99 Oximetry O2 Sat by Pulse Oximetry [ Assessment] 12/28/16 12/28/16 12/28/16 03:21 03:31 03:41 Temperature Pulse Rate 99 H 98 H 92 H Pulse Rate [ From Monitor] Respiratory 18 17 19 Rate Blood Pressure 127/76 127/76 127/76 O2 Sat by Pulse 99 99 99 Oximetry O2 Sat by Pulse Oximetry [ Assessment] 12/28/16 12/28/16 12/28/16 03:51 04:00 04:45 Temperature 99.4 F Pulse Rate 101 H 101 H Pulse Rate [ From Monitor] Respiratory 22 20 Rate Blood Pressure 127/76 O2 Sat by Pulse 99 100 Oximetry O2 Sat by Pulse Oximetry [ Assessment] 12/28/16 12/28/16 12/28/16 05:00 05:31 05:36 Temperature Pulse Rate 99 H 99 H Pulse Rate [ 98 H From Monitor] Respiratory 20 19 Rate Blood Pressure 130/81 O2 Sat by Pulse 100 100 Oximetry O2 Sat by Pulse Oximetry [ Assessment] 12/28/16 12/28/16 12/28/16 06:01 06:31 07:01 Temperature Pulse Rate 98 H 94 H 98 H Pulse Rate [ From Monitor] Respiratory 18 16 19 Rate Blood Pressure 140/80 140/80 119/80 O2 Sat by Pulse 100 100 100 Oximetry O2 Sat by Pulse Oximetry [ Assessment] 12/28/16 12/28/16 12/28/16 07:10 07:15 07:23 Temperature 98.9 F Pulse Rate Pulse Rate [ From Monitor] Respiratory Rate Blood Pressure O2 Sat by Pulse 98 Oximetry O2 Sat by Pulse 98 Oximetry [ Assessment] 12/28/16 12/28/16 12/28/16 07:31 08:00 08:31 Temperature Pulse Rate 101 H 103 H 105 H Pulse Rate [ 103 H From Monitor] Respiratory 21 26 H 24 Rate Blood Pressure 119/80 115/81 115/81 O2 Sat by Pulse 99 100 99 Oximetry O2 Sat by Pulse Oximetry [ Assessment] 12/28/16 12/28/16 12/28/16 09:01 09:31 09:59 Temperature Pulse Rate 104 H 107 H 105 H Pulse Rate [ From Monitor] Respiratory 21 22 Rate Blood Pressure 120/71 120/71 120/71 O2 Sat by Pulse 99 99 Oximetry O2 Sat by Pulse Oximetry [ Assessment] 12/28/16 12/28/16 12/28/16 10:00 10:31 11:00 Temperature Pulse Rate 104 H 98 H 100 H Pulse Rate [ From Monitor] Respiratory 24 16 21 Rate Blood Pressure 124/73 124/73 126/79 O2 Sat by Pulse 99 100 98 Oximetry O2 Sat by Pulse Oximetry [ Assessment] 12/28/16 12/28/16 12/28/16 11:31 11:45 12:00 Temperature 98.7 F Pulse Rate 100 H 98 H Pulse Rate [ From Monitor] Respiratory 26 H 24 Rate Blood Pressure 126/79 135/81 O2 Sat by Pulse 97 97 Oximetry O2 Sat by Pulse Oximetry [ Assessment] Constitutional: other (eyes open, ? tracking) Eyes: non-icteric ENT: oropharynx moist, other (trach midline) Neck: supple, other (large in circumference) Effort: normal Ascultation: Bilateral: clear Cardiovascular: regular rate and rhythm (no mrg) Gastrointestinal: hypoactive bowel sounds, other (obese, distended) Integumentary: normal Extremities: no cyanosis, no edema, pink and warm Neurologic: other (flaccid extremities, not following commands; ? some posturing UEs; eyes are open and ? tracking today) Psychiatric: other (not able to assess) CBC and BMP: 09/05/17 05:15 12/28/16 01:30 ABG, PT/INR, D-dimer: ABG POC ABG pH 7.433 (7.35-7.45) 12/23/16 11:54 POC ABG pCO2 39.9 (35-45) 12/23/16 11:54 POC ABG pO2 187 (80-105) H 12/23/16 11:54 POC ABG HCO3 26.7 12/23/16 11:54 POC ABG Total CO2 28 12/23/16 11:54 POC ABG O2 Sat 100 12/23/16 11:54 PT/INR, D-dimer PT 17.6 Sec. (12.2-14.9) H 12/16/16 06:30 INR 1.45 (0.87-1.13) H 12/16/16 06:30 Abnormal lab findings: Abnormal Labs 12/12/16 12/12/16 12/12/16 08:06 12:27 15:23 WBC RBC Hgb Hct Plt Count Lymph % (Auto) [place] % (Auto) Lymph # Seg Neutrophils % Seg Neutrophils # PT INR POC ABG pH POC ABG pCO2 POC ABG pO2 Sodium Potassium Chloride Carbon Dioxide BUN Creatinine Glucose POC Glucose 299 H 281 H Lactic Acid 4.20 H* Calcium Phosphorus Magnesium AST Alkaline Phosphatase Lactate Dehydrogenase C-Reactive Protein Total Protein Albumin Wohyx-1-Chmwbgcir Scamf-5-Odqsqatxx Beta Globulins Gamma Globulins PEP Interpretation Triglycerides LDL Cholesterol Direct HDL Cholesterol Urine WBC (Auto) RYLAN Screen RYLAN Titer Complement C3 Complement C4 Miscellaneous Test 12/12/16 12/12/16 12/12/16 16:53 19:51 20:43 WBC RBC Hgb Hct Plt Count Lymph % (Auto) [place] % (Auto) Lymph # Seg Neutrophils % Seg Neutrophils # PT INR POC ABG pH POC ABG pCO2 POC ABG pO2 Sodium Potassium Chloride Carbon Dioxide BUN Creatinine Glucose POC Glucose 272 H 238 H Lactic Acid 2.90 H* Calcium Phosphorus Magnesium AST Alkaline Phosphatase Lactate Dehydrogenase C-Reactive Protein Total Protein Albumin Ssbxo-0-Ttithaavn Jhrqf-5-Rxviyzxxl Beta Globulins Gamma Globulins PEP Interpretation Triglycerides LDL Cholesterol Direct HDL Cholesterol Urine WBC (Auto) RYLAN Screen RYLAN Titer Complement C3 Complement C4 Miscellaneous Test 12/12/16 12/13/16 12/13/16 21:30 03:39 03:39 WBC RBC Hgb Hct Plt Count 118 L Lymph % (Auto) 7.4 L [place] % (Auto) 7.6 H Lymph # 0.7 L Seg Neutrophils % 84.7 H Seg Neutrophils # 8.4 H PT INR POC ABG pH POC ABG pCO2 POC ABG pO2 Sodium 133 L Potassium Chloride 96.5 L Carbon Dioxide 18 L BUN 49 H Creatinine 3.1 H D Glucose 173 H POC Glucose Lactic Acid Calcium 8.3 L D Phosphorus Magnesium 1.20 L AST Alkaline Phosphatase Lactate Dehydrogenase C-Reactive Protein Total Protein Albumin 2.6 L Qictf-1-Afbkprkcv Huekp-1-Lnsiktiat Beta Globulins Gamma Globulins PEP Interpretation Triglycerides 166 H LDL Cholesterol Direct 24 L HDL Cholesterol 9 L Urine WBC (Auto) > 182.0 H RYLAN Screen RYLAN Titer Complement C3 Complement C4 Miscellaneous Test 12/13/16 12/13/16 12/13/16 07:41 11:53 17:23 WBC RBC Hgb Hct Plt Count Lymph % (Auto) [place] % (Auto) Lymph # Seg Neutrophils % Seg Neutrophils # PT INR POC ABG pH POC ABG pCO2 POC ABG pO2 Sodium Potassium Chloride Carbon Dioxide BUN Creatinine Glucose POC Glucose 222 H 221 H 247 H Lactic Acid Calcium Phosphorus Magnesium AST Alkaline Phosphatase Lactate Dehydrogenase C-Reactive Protein Total Protein Albumin Wqign-6-Eayrwlhvx Yaath-2-Crzparcwh Beta Globulins Gamma Globulins PEP Interpretation Triglycerides LDL Cholesterol Direct HDL Cholesterol Urine WBC (Auto) RYLAN Screen RYLAN Titer Complement C3 Complement C4 Miscellaneous Test 12/13/16 12/14/16 12/14/16 21:29 03:35 03:35 WBC RBC 3.42 L Hgb Hct Plt Count 86 L Lymph % (Auto) 6.1 L [place] % (Auto) Lymph # 0.3 L Seg Neutrophils % 87.3 H Seg Neutrophils # PT INR POC ABG pH POC ABG pCO2 POC ABG pO2 Sodium 133 L Potassium 5.1 H Chloride 96.2 L Carbon Dioxide 17 L BUN 63 H Creatinine 4.2 H Glucose 136 H POC Glucose 185 H Lactic Acid Calcium 8.1 L Phosphorus Magnesium 1.30 L AST Alkaline Phosphatase Lactate Dehydrogenase C-Reactive Protein Total Protein Albumin Nqgpa-8-Tugdvjtad Ipsmz-9-Zvsjpktls Beta Globulins Gamma Globulins PEP Interpretation Triglycerides LDL Cholesterol Direct HDL Cholesterol Urine WBC (Auto) RYLAN Screen RYLAN Titer Complement C3 Complement C4 Miscellaneous Test 12/14/16 12/14/16 12/14/16 08:32 09:00 09:00 WBC RBC Hgb Hct Plt Count Lymph % (Auto) [place] % (Auto) Lymph # Seg Neutrophils % Seg Neutrophils # PT INR POC ABG pH POC ABG pCO2 POC ABG pO2 Sodium Potassium Chloride Carbon Dioxide BUN Creatinine Glucose POC Glucose 152 H Lactic Acid Calcium Phosphorus Magnesium AST Alkaline Phosphatase Lactate Dehydrogenase C-Reactive Protein Total Protein Albumin Yzpoc-3-Lfqiessbg Llgqx-2-Zgwpioeol Beta Globulins Gamma Globulins PEP Interpretation Triglycerides LDL Cholesterol Direct HDL Cholesterol Urine WBC (Auto) RYLAN Screen Positive H RYLAN Titer 1:320 H Complement C3 206 H Complement C4 Miscellaneous Test 12/14/16 12/14/16 12/14/16 09:00 09:00 11:50 WBC RBC Hgb Hct Plt Count Lymph % (Auto) [place] % (Auto) Lymph # Seg Neutrophils % Seg Neutrophils # PT INR POC ABG pH POC ABG pCO2 POC ABG pO2 Sodium Potassium Chloride Carbon Dioxide BUN Creatinine Glucose POC Glucose 168 H Lactic Acid Calcium Phosphorus Magnesium AST Alkaline Phosphatase Lactate Dehydrogenase C-Reactive Protein Total Protein Albumin 2.6 L Qlisj-6-Jmrdsgfll 0.7 H Bzsdo-5-Dlsmqcara 1.0 H Beta Globulins 0.7 H Gamma Globulins 0.7 L PEP Interpretation see below H Triglycerides LDL Cholesterol Direct HDL Cholesterol Urine WBC (Auto) RYLAN Screen RYLAN Titer Complement C3 Complement C4 56 H Miscellaneous Test 12/14/16 12/15/16 12/15/16 17:35 04:35 04:35 WBC 4.1 L RBC 3.39 L Hgb Hct Plt Count 84 L Lymph % (Auto) 8.8 L [place] % (Auto) Lymph # 0.4 L Seg Neutrophils % 83.6 H Seg Neutrophils # PT INR POC ABG pH POC ABG pCO2 POC ABG pO2 Sodium Potassium 6.0 H Chloride Carbon Dioxide 15 L BUN 79 H Creatinine 5.0 H Glucose POC Glucose 154 H Lactic Acid Calcium 8.0 L Phosphorus 6.70 H D Magnesium AST Alkaline Phosphatase Lactate Dehydrogenase C-Reactive Protein Total Protein Albumin Vkceu-5-Azowractu Getpv-6-Eezlizklp Beta Globulins Gamma Globulins PEP Interpretation Triglycerides LDL Cholesterol Direct HDL Cholesterol Urine WBC (Auto) RYLAN Screen RYLAN Titer Complement C3 Complement C4 Miscellaneous Test 12/15/16 12/15/16 12/15/16 07:45 08:13 15:20 WBC RBC Hgb Hct Plt Count Lymph % (Auto) [place] % (Auto) Lymph # Seg Neutrophils % Seg Neutrophils # PT INR POC ABG pH 7.156 L 7.228 L POC ABG pCO2 48.7 H POC ABG pO2 232 H Sodium Potassium Chloride Carbon Dioxide BUN Creatinine Glucose POC Glucose 113 H Lactic Acid Calcium Phosphorus Magnesium AST Alkaline Phosphatase Lactate Dehydrogenase C-Reactive Protein Total Protein Albumin Aqyat-5-Risrrxyuv Cwxyh-8-Kvkvqkspe Beta Globulins Gamma Globulins PEP Interpretation Triglycerides LDL Cholesterol Direct HDL Cholesterol Urine WBC (Auto) RYLAN Screen RYLAN Titer Complement C3 Complement C4 Miscellaneous Test 12/15/16 12/15/16 12/15/16 23:53 Unknown Unknown WBC RBC 3.19 L Hgb 9.6 L Hct 29.8 L Plt Count 108 L Lymph % (Auto) 6.5 L [place] % (Auto) Lymph # 0.4 L Seg Neutrophils % 87.1 H Seg Neutrophils # PT 16.2 H INR 1.31 H POC ABG pH POC ABG pCO2 POC ABG pO2 Sodium Potassium Chloride Carbon Dioxide BUN Creatinine Glucose POC Glucose 232 H Lactic Acid Calcium Phosphorus Magnesium AST Alkaline Phosphatase Lactate Dehydrogenase C-Reactive Protein Total Protein Albumin Pkbfy-2-Zndfnwody Zqdwx-0-Roezirjcs Beta Globulins Gamma Globulins PEP Interpretation Triglycerides LDL Cholesterol Direct HDL Cholesterol Urine WBC (Auto) RYLAN Screen RYLAN Titer Complement C3 Complement C4 Miscellaneous Test 12/15/16 12/16/16 12/16/16 Unknown 04:58 05:39 WBC RBC Hgb Hct Plt Count Lymph % (Auto) [place] % (Auto) Lymph # Seg Neutrophils % Seg Neutrophils # PT INR POC ABG pH POC ABG pCO2 POC ABG pO2 143 H Sodium Potassium Chloride Carbon Dioxide 16 L BUN 85 H Creatinine 4.9 H Glucose 205 H POC Glucose 201 H Lactic Acid Calcium 8.2 L Phosphorus Magnesium AST 77 H Alkaline Phosphatase 136 H Lactate Dehydrogenase C-Reactive Protein Total Protein Albumin 2.3 L Hstnn-6-Iqxxsozqr Pbnno-8-Umjjussuu Beta Globulins Gamma Globulins PEP Interpretation Triglycerides LDL Cholesterol Direct HDL Cholesterol Urine WBC (Auto) RYLAN Screen RYLAN Titer Complement C3 Complement C4 Miscellaneous Test 12/16/16 12/16/16 12/16/16 06:30 06:30 06:30 WBC 4.0 L RBC 3.23 L Hgb 9.6 L Hct 29.8 L Plt Count 110 L Lymph % (Auto) 11.3 L [place] % (Auto) Lymph # 0.5 L Seg Neutrophils % 81.2 H Seg Neutrophils # PT 17.6 H INR 1.45 H POC ABG pH POC ABG pCO2 POC ABG pO2 Sodium Potassium Chloride Carbon Dioxide 20 L BUN 57 H Creatinine 3.6 H Glucose 176 H POC Glucose Lactic Acid Calcium 8.1 L Phosphorus 4.90 H D Magnesium 1.60 L AST 46 H Alkaline Phosphatase 137 H Lactate Dehydrogenase C-Reactive Protein Total Protein Albumin 2.3 L Suauy-9-Msuavvqtl Vghfb-3-Bnfcdszhb Beta Globulins Gamma Globulins PEP Interpretation Triglycerides LDL Cholesterol Direct HDL Cholesterol Urine WBC (Auto) RYLAN Screen RYLAN Titer Complement C3 Complement C4 Miscellaneous Test 12/16/16 12/16/16 12/16/16 11:16 15:30 17:23 WBC RBC Hgb Hct Plt Count Lymph % (Auto) [place] % (Auto) Lymph # Seg Neutrophils % Seg Neutrophils # PT INR POC ABG pH POC ABG pCO2 POC ABG pO2 Sodium Potassium Chloride Carbon Dioxide BUN Creatinine Glucose POC Glucose 194 H 209 H Lactic Acid Calcium Phosphorus Magnesium AST 43 H Alkaline Phosphatase 156 H Lactate Dehydrogenase C-Reactive Protein Total Protein 5.6 L Albumin 2.4 L Wfhbs-7-Lxwzaxgtz Nxaji-0-Ajfjgfwgb Beta Globulins Gamma Globulins PEP Interpretation Triglycerides LDL Cholesterol Direct HDL Cholesterol Urine WBC (Auto) RYLAN Screen RYLAN Titer Complement C3 Complement C4 Miscellaneous Test 12/16/16 12/17/16 12/17/16 23:35 03:38 05:18 WBC RBC Hgb Hct Plt Count Lymph % (Auto) [place] % (Auto) Lymph # Seg Neutrophils % Seg Neutrophils # PT INR POC ABG pH 7.485 H POC ABG pCO2 POC ABG pO2 Sodium Potassium Chloride Carbon Dioxide BUN Creatinine Glucose POC Glucose 179 H 201 H Lactic Acid Calcium Phosphorus Magnesium AST Alkaline Phosphatase Lactate Dehydrogenase C-Reactive Protein Total Protein Albumin Dyuhw-6-Rzgyiqyzm Foujn-8-Lezteccnd Beta Globulins Gamma Globulins PEP Interpretation Triglycerides LDL Cholesterol Direct HDL Cholesterol Urine WBC (Auto) RYLAN Screen RYLAN Titer Complement C3 Complement C4 Miscellaneous Test 12/17/16 12/17/16 12/17/16 07:24 12:00 13:58 WBC RBC 3.02 L Hgb 9.2 L Hct 27.2 L Plt Count 100 L Lymph % (Auto) [place] % (Auto) 7.9 H Lymph # 0.8 L Seg Neutrophils % 75.0 H Seg Neutrophils # PT INR POC ABG pH POC ABG pCO2 POC ABG pO2 Sodium Potassium 3.3 L Chloride Carbon Dioxide BUN 50 H Creatinine 3.1 H Glucose 181 H POC Glucose 176 H Lactic Acid Calcium Phosphorus Magnesium AST Alkaline Phosphatase 155 H Lactate Dehydrogenase C-Reactive Protein Total Protein Albumin 2.2 L Jyakn-5-Obmezhssd Jefir-3-Nbseftluu Beta Globulins Gamma Globulins PEP Interpretation Triglycerides LDL Cholesterol Direct HDL Cholesterol Urine WBC (Auto) RYLAN Screen RYLAN Titer Complement C3 Complement C4 Miscellaneous Test 12/17/16 12/18/16 12/18/16 17:11 00:05 05:40 WBC RBC Hgb Hct Plt Count Lymph % (Auto) [place] % (Auto) Lymph # Seg Neutrophils % Seg Neutrophils # PT INR POC ABG pH POC ABG pCO2 POC ABG pO2 Sodium Potassium Chloride Carbon Dioxide BUN Creatinine Glucose POC Glucose 152 H 155 H 170 H Lactic Acid Calcium Phosphorus Magnesium AST Alkaline Phosphatase Lactate Dehydrogenase C-Reactive Protein Total Protein Albumin Asiqw-4-Mrvqlsayf Nddql-1-Upjnaphvi Beta Globulins Gamma Globulins PEP Interpretation Triglycerides LDL Cholesterol Direct HDL Cholesterol Urine WBC (Auto) RYLAN Screen RYLAN Titer Complement C3 Complement C4 Miscellaneous Test 12/18/16 12/18/16 12/18/16 07:52 12:21 15:10 WBC RBC Hgb Hct Plt Count Lymph % (Auto) [place] % (Auto) Lymph # Seg Neutrophils % Seg Neutrophils # PT INR POC ABG pH POC ABG pCO2 POC ABG pO2 Sodium Potassium 2.9 L* Chloride Carbon Dioxide BUN 69 H Creatinine 4.5 H Glucose 150 H POC Glucose 165 H 130 H Lactic Acid Calcium Phosphorus Magnesium AST Alkaline Phosphatase Lactate Dehydrogenase C-Reactive Protein Total Protein Albumin Tfvxi-9-Nkjinylhv Rppgi-1-Brrnplyyw Beta Globulins Gamma Globulins PEP Interpretation Triglycerides LDL Cholesterol Direct HDL Cholesterol Urine WBC (Auto) RYLAN Screen RYLAN Titer Complement C3 Complement C4 Miscellaneous Test 12/18/16 12/18/16 12/19/16 18:43 23:33 03:04 WBC RBC Hgb Hct Plt Count Lymph % (Auto) [place] % (Auto) Lymph # Seg Neutrophils % Seg Neutrophils # PT INR POC ABG pH 7.455 H POC ABG pCO2 POC ABG pO2 Sodium Potassium Chloride Carbon Dioxide BUN Creatinine Glucose POC Glucose 176 H 174 H Lactic Acid Calcium Phosphorus Magnesium AST Alkaline Phosphatase Lactate Dehydrogenase C-Reactive Protein Total Protein Albumin Rmqzq-5-Wtxeyhdop Ucbwm-5-Uwkfsycev Beta Globulins Gamma Globulins PEP Interpretation Triglycerides LDL Cholesterol Direct HDL Cholesterol Urine WBC (Auto) RYLAN Screen RYLAN Titer Complement C3 Complement C4 Miscellaneous Test 12/19/16 12/19/16 12/19/16 05:47 10:40 10:40 WBC RBC 3.06 L Hgb 9.2 L Hct 28.0 L Plt Count 126 L Lymph % (Auto) [place] % (Auto) Lymph # Seg Neutrophils % Seg Neutrophils # PT INR POC ABG pH POC ABG pCO2 POC ABG pO2 Sodium Potassium 3.0 L Chloride Carbon Dioxide BUN 55 H Creatinine 3.4 H Glucose 161 H POC Glucose 160 H Lactic Acid Calcium Phosphorus 5.10 H Magnesium AST Alkaline Phosphatase Lactate Dehydrogenase C-Reactive Protein Total Protein Albumin Hciyy-5-Xgfglavfq Abizh-5-Jyqjxlmkv Beta Globulins Gamma Globulins PEP Interpretation Triglycerides LDL Cholesterol Direct HDL Cholesterol Urine WBC (Auto) RYLAN Screen RYLAN Titer Complement C3 Complement C4 Miscellaneous Test 12/19/16 12/19/16 12/20/16 13:00 18:04 00:04 WBC RBC Hgb Hct Plt Count Lymph % (Auto) [place] % (Auto) Lymph # Seg Neutrophils % Seg Neutrophils # PT INR POC ABG pH POC ABG pCO2 POC ABG pO2 Sodium Potassium Chloride Carbon Dioxide BUN Creatinine Glucose POC Glucose 173 H 129 H 152 H Lactic Acid Calcium Phosphorus Magnesium AST Alkaline Phosphatase Lactate Dehydrogenase C-Reactive Protein Total Protein Albumin Hiwjm-2-Lafwumhvd Cwvwp-6-Ntfewovem Beta Globulins Gamma Globulins PEP Interpretation Triglycerides LDL Cholesterol Direct HDL Cholesterol Urine WBC (Auto) RYLAN Screen RYLAN Titer Complement C3 Complement C4 Miscellaneous Test 12/20/16 12/20/16 12/20/16 05:34 05:45 10:47 WBC RBC Hgb Hct Plt Count Lymph % (Auto) [place] % (Auto) Lymph # Seg Neutrophils % Seg Neutrophils # PT INR POC ABG pH POC ABG pCO2 POC ABG pO2 110 H Sodium Potassium 3.4 L Chloride Carbon Dioxide BUN 72 H Creatinine 4.0 H Glucose 130 H POC Glucose 175 H Lactic Acid Calcium Phosphorus Magnesium AST Alkaline Phosphatase Lactate Dehydrogenase C-Reactive Protein Total Protein Albumin Xxzxj-1-Ivtewykuz Kghbe-3-Ekyqytoxp Beta Globulins Gamma Globulins PEP Interpretation Triglycerides LDL Cholesterol Direct HDL Cholesterol Urine WBC (Auto) RYLAN Screen RYLAN Titer Complement C3 Complement C4 Miscellaneous Test 12/20/16 12/20/16 12/20/16 11:56 18:14 23:43 WBC RBC Hgb Hct Plt Count Lymph % (Auto) [place] % (Auto) Lymph # Seg Neutrophils % Seg Neutrophils # PT INR POC ABG pH POC ABG pCO2 POC ABG pO2 Sodium Potassium Chloride Carbon Dioxide BUN Creatinine Glucose POC Glucose 130 H 142 H 193 H Lactic Acid Calcium Phosphorus Magnesium AST Alkaline Phosphatase Lactate Dehydrogenase C-Reactive Protein Total Protein Albumin Dfnoh-8-Vlplcvfsu Fkdbt-1-Izfufrzjo Beta Globulins Gamma Globulins PEP Interpretation Triglycerides LDL Cholesterol Direct HDL Cholesterol Urine WBC (Auto) RYLAN Screen RYLAN Titer Complement C3 Complement C4 Miscellaneous Test 12/21/16 12/21/16 12/21/16 05:10 08:32 12:29 WBC RBC Hgb Hct Plt Count Lymph % (Auto) [place] % (Auto) Lymph # Seg Neutrophils % Seg Neutrophils # PT INR POC ABG pH POC ABG pCO2 POC ABG pO2 Sodium 146 H Potassium Chloride Carbon Dioxide BUN 85 H Creatinine 4.3 H Glucose 184 H POC Glucose 204 H 214 H Lactic Acid Calcium Phosphorus Magnesium AST Alkaline Phosphatase Lactate Dehydrogenase C-Reactive Protein Total Protein Albumin Hywxh-2-Urarfrhhn Hlbjg-6-Dprbkdtlk Beta Globulins Gamma Globulins PEP Interpretation Triglycerides LDL Cholesterol Direct HDL Cholesterol Urine WBC (Auto) RYLAN Screen RYLAN Titer Complement C3 Complement C4 Miscellaneous Test 12/21/16 12/21/16 12/22/16 18:06 23:31 05:38 WBC RBC Hgb Hct Plt Count Lymph % (Auto) [place] % (Auto) Lymph # Seg Neutrophils % Seg Neutrophils # PT INR POC ABG pH POC ABG pCO2 POC ABG pO2 Sodium Potassium Chloride Carbon Dioxide BUN Creatinine Glucose POC Glucose 184 H 191 H 182 H Lactic Acid Calcium Phosphorus Magnesium AST Alkaline Phosphatase Lactate Dehydrogenase C-Reactive Protein Total Protein Albumin Mjbqb-5-Qrtmhmzyf Ziwwl-5-Frjttlowx Beta Globulins Gamma Globulins PEP Interpretation Triglycerides LDL Cholesterol Direct HDL Cholesterol Urine WBC (Auto) RYLAN Screen RYLAN Titer Complement C3 Complement C4 Miscellaneous Test 12/22/16 12/22/16 12/22/16 06:30 12:23 15:07 WBC RBC Hgb Hct Plt Count Lymph % (Auto) [place] % (Auto) Lymph # Seg Neutrophils % Seg Neutrophils # PT INR POC ABG pH POC ABG pCO2 POC ABG pO2 Sodium 148 H Potassium 3.3 L Chloride Carbon Dioxide BUN 87 H Creatinine 4.4 H Glucose 186 H POC Glucose 205 H Lactic Acid Calcium Phosphorus Magnesium AST Alkaline Phosphatase Lactate Dehydrogenase C-Reactive Protein 12.10 H Total Protein Albumin Onpss-7-Evmfdosua Xvgdc-7-Yftxzltqe Beta Globulins Gamma Globulins PEP Interpretation Triglycerides LDL Cholesterol Direct HDL Cholesterol Urine WBC (Auto) RYLAN Screen RYLAN Titer Complement C3 Complement C4 Miscellaneous Test 12/22/16 12/22/16 12/23/16 16:25 22:49 05:15 WBC RBC Hgb Hct Plt Count Lymph % (Auto) [place] % (Auto) Lymph # Seg Neutrophils % Seg Neutrophils # PT INR POC ABG pH POC ABG pCO2 POC ABG pO2 Sodium Potassium 3.5 L Chloride Carbon Dioxide BUN 49 H Creatinine 2.6 H Glucose 189 H POC Glucose 187 H 195 H Lactic Acid Calcium Phosphorus Magnesium AST Alkaline Phosphatase Lactate Dehydrogenase C-Reactive Protein Total Protein Albumin Tnkwl-4-Rfiwpvwrb Mkuzk-1-Yuvuxyloq Beta Globulins Gamma Globulins PEP Interpretation Triglycerides LDL Cholesterol Direct HDL Cholesterol Urine WBC (Auto) RYLAN Screen RYLAN Titer Complement C3 Complement C4 Miscellaneous Test 12/23/16 12/23/16 12/23/16 05:15 06:00 06:00 WBC RBC 3.05 L Hgb 9.1 L Hct 27.9 L Plt Count Lymph % (Auto) [place] % (Auto) Lymph # Seg Neutrophils % 77.5 H Seg Neutrophils # 8.1 H PT INR POC ABG pH POC ABG pCO2 POC ABG pO2 Sodium Potassium Chloride Carbon Dioxide BUN Creatinine Glucose POC Glucose 209 H Lactic Acid Calcium Phosphorus Magnesium AST Alkaline Phosphatase Lactate Dehydrogenase C-Reactive Protein Total Protein Albumin Mbjuk-2-Fobgwigyc Hdore-2-Qiqdndxwx Beta Globulins Gamma Globulins PEP Interpretation Triglycerides LDL Cholesterol Direct HDL Cholesterol Urine WBC (Auto) RYLAN Screen RYLAN Titer Complement C3 Complement C4 Miscellaneous Test Flexitest 1 H 12/23/16 12/23/16 12/23/16 11:54 12:05 17:31 WBC RBC Hgb Hct Plt Count Lymph % (Auto) [place] % (Auto) Lymph # Seg Neutrophils % Seg Neutrophils # PT INR POC ABG pH POC ABG pCO2 POC ABG pO2 187 H Sodium Potassium Chloride Carbon Dioxide BUN Creatinine Glucose POC Glucose 231 H 233 H Lactic Acid Calcium Phosphorus Magnesium AST Alkaline Phosphatase Lactate Dehydrogenase C-Reactive Protein Total Protein Albumin Lbbmi-3-Mblqfprbk Bjvcv-5-Pytcnjlut Beta Globulins Gamma Globulins PEP Interpretation Triglycerides LDL Cholesterol Direct HDL Cholesterol Urine WBC (Auto) RYLAN Screen RYLAN Titer Complement C3 Complement C4 Miscellaneous Test 12/23/16 12/24/16 12/24/16 23:41 05:00 05:00 WBC RBC Hgb Hct Plt Count Lymph % (Auto) [place] % (Auto) Lymph # Seg Neutrophils % Seg Neutrophils # PT INR POC ABG pH POC ABG pCO2 POC ABG pO2 Sodium Potassium 2.7 L* D Chloride Carbon Dioxide BUN 63 H Creatinine 2.8 H Glucose 284 H POC Glucose 283 H Lactic Acid Calcium Phosphorus Magnesium AST Alkaline Phosphatase Lactate Dehydrogenase C-Reactive Protein Total Protein Albumin 2.7 L Zobpl-5-Gnmazwsoe Ottpa-0-Wwxzruppj Beta Globulins Gamma Globulins PEP Interpretation Triglycerides LDL Cholesterol Direct HDL Cholesterol Urine WBC (Auto) RYLAN Screen RYLAN Titer Complement C3 Complement C4 Miscellaneous Test 12/24/16 12/24/16 12/24/16 05:08 11:53 17:40 WBC RBC Hgb Hct Plt Count Lymph % (Auto) [place] % (Auto) Lymph # Seg Neutrophils % Seg Neutrophils # PT INR POC ABG pH POC ABG pCO2 POC ABG pO2 Sodium Potassium Chloride Carbon Dioxide BUN Creatinine Glucose POC Glucose 312 H 236 H 236 H Lactic Acid Calcium Phosphorus Magnesium AST Alkaline Phosphatase Lactate Dehydrogenase C-Reactive Protein Total Protein Albumin Tdbql-3-Crcpsbxwz Hmnfl-2-Rzoxnboun Beta Globulins Gamma Globulins PEP Interpretation Triglycerides LDL Cholesterol Direct HDL Cholesterol Urine WBC (Auto) RYLAN Screen RYLAN Titer Complement C3 Complement C4 Miscellaneous Test 12/24/16 12/25/16 12/25/16 23:47 04:38 05:11 WBC RBC Hgb Hct Plt Count Lymph % (Auto) [place] % (Auto) Lymph # Seg Neutrophils % Seg Neutrophils # PT INR POC ABG pH POC ABG pCO2 POC ABG pO2 Sodium 147 H Potassium 2.8 L* Chloride 109.9 H Carbon Dioxide 20 L BUN 64 H Creatinine 2.8 H Glucose 243 H POC Glucose 280 H 254 H Lactic Acid Calcium Phosphorus Magnesium AST Alkaline Phosphatase Lactate Dehydrogenase C-Reactive Protein Total Protein Albumin 2.7 L Zbrjk-0-Mdmkccjvz Ppdfk-4-Fwfpthxjt Beta Globulins Gamma Globulins PEP Interpretation Triglycerides LDL Cholesterol Direct HDL Cholesterol Urine WBC (Auto) RYLAN Screen RYLAN Titer Complement C3 Complement C4 Miscellaneous Test 12/25/16 12/25/16 12/25/16 10:08 11:35 18:16 WBC RBC Hgb Hct Plt Count Lymph % (Auto) [place] % (Auto) Lymph # Seg Neutrophils % Seg Neutrophils # PT INR POC ABG pH POC ABG pCO2 POC ABG pO2 Sodium Potassium Chloride Carbon Dioxide BUN Creatinine Glucose POC Glucose 252 H 253 H 230 H Lactic Acid Calcium Phosphorus Magnesium AST Alkaline Phosphatase Lactate Dehydrogenase C-Reactive Protein Total Protein Albumin Xfxmg-2-Cppvfzukc Zurhw-0-Vsdhobjxt Beta Globulins Gamma Globulins PEP Interpretation Triglycerides LDL Cholesterol Direct HDL Cholesterol Urine WBC (Auto) RYLAN Screen RYLAN Titer Complement C3 Complement C4 Miscellaneous Test 12/26/16 12/26/16 12/26/16 00:00 03:30 05:42 WBC RBC Hgb Hct Plt Count Lymph % (Auto) [place] % (Auto) Lymph # Seg Neutrophils % Seg Neutrophils # PT INR POC ABG pH POC ABG pCO2 POC ABG pO2 Sodium 149 H Potassium 2.6 L* Chloride 113.0 H Carbon Dioxide 20 L BUN 61 H Creatinine 2.6 H Glucose 182 H POC Glucose 177 H 183 H Lactic Acid Calcium Phosphorus Magnesium AST 46 H Alkaline Phosphatase Lactate Dehydrogenase C-Reactive Protein Total Protein Albumin 2.7 L Ardco-8-Cpxpagnbh Drnsq-9-Tbzkucobf Beta Globulins Gamma Globulins PEP Interpretation Triglycerides LDL Cholesterol Direct HDL Cholesterol Urine WBC (Auto) RYLAN Screen RYLAN Titer Complement C3 Complement C4 Miscellaneous Test 12/26/16 12/26/16 12/27/16 11:14 18:40 00:22 WBC RBC Hgb Hct Plt Count Lymph % (Auto) [place] % (Auto) Lymph # Seg Neutrophils % Seg Neutrophils # PT INR POC ABG pH POC ABG pCO2 POC ABG pO2 Sodium 150 H Potassium 3.1 L Chloride 116.1 H Carbon Dioxide 17 L BUN 59 H Creatinine 2.3 H Glucose 180 H POC Glucose 195 H 182 H Lactic Acid Calcium Phosphorus Magnesium AST Alkaline Phosphatase Lactate Dehydrogenase C-Reactive Protein Total Protein Albumin Olcdm-1-Iqpivupsq Dplwt-8-Dunitpuqg Beta Globulins Gamma Globulins PEP Interpretation Triglycerides LDL Cholesterol Direct HDL Cholesterol Urine WBC (Auto) RYLAN Screen RYLAN Titer Complement C3 Complement C4 Miscellaneous Test 12/27/16 12/27/16 12/27/16 04:00 05:13 12:42 WBC RBC Hgb Hct Plt Count Lymph % (Auto) [place] % (Auto) Lymph # Seg Neutrophils % Seg Neutrophils # PT INR POC ABG pH POC ABG pCO2 POC ABG pO2 Sodium 149 H Potassium 2.9 L* Chloride 112.1 H Carbon Dioxide 20 L BUN 43 H Creatinine 1.9 H Glucose 160 H POC Glucose 168 H 163 H Lactic Acid Calcium Phosphorus Magnesium AST 75 H Alkaline Phosphatase Lactate Dehydrogenase C-Reactive Protein Total Protein Albumin 2.9 L Yhwqi-5-Akojyslcu Lriha-1-Doftfchli Beta Globulins Gamma Globulins PEP Interpretation Triglycerides LDL Cholesterol Direct HDL Cholesterol Urine WBC (Auto) RYLAN Screen RYLAN Titer Complement C3 Complement C4 Miscellaneous Test 12/27/16 12/27/16 12/27/16 13:50 18:15 23:47 WBC RBC Hgb Hct Plt Count Lymph % (Auto) [place] % (Auto) Lymph # Seg Neutrophils % Seg Neutrophils # PT INR POC ABG pH POC ABG pCO2 POC ABG pO2 Sodium 150 H Potassium Chloride 115.9 H Carbon Dioxide 19 L BUN 47 H Creatinine 1.8 H Glucose 158 H POC Glucose 137 H 221 H Lactic Acid Calcium Phosphorus Magnesium AST Alkaline Phosphatase Lactate Dehydrogenase C-Reactive Protein Total Protein Albumin Xrvat-4-Jsermtkod Wyqmd-1-Feiflzefe Beta Globulins Gamma Globulins PEP Interpretation Triglycerides LDL Cholesterol Direct HDL Cholesterol Urine WBC (Auto) RYLAN Screen RYLAN Titer Complement C3 Complement C4 Miscellaneous Test 12/28/16 12/28/16 12/28/16 01:30 01:30 05:36 WBC RBC Hgb Hct Plt Count Lymph % (Auto) [place] % (Auto) Lymph # Seg Neutrophils % Seg Neutrophils # PT INR POC ABG pH POC ABG pCO2 POC ABG pO2 Sodium Potassium 3.1 L Chloride 112.5 H Carbon Dioxide 17 L BUN 48 H Creatinine 1.8 H Glucose 185 H POC Glucose 182 H Lactic Acid Calcium Phosphorus Magnesium AST 70 H Alkaline Phosphatase Lactate Dehydrogenase 275 H C-Reactive Protein Total Protein Albumin 2.8 L Adanu-7-Nnqjujvvy Manaz-3-Jqcgcjrmz Beta Globulins Gamma Globulins PEP Interpretation Triglycerides LDL Cholesterol Direct HDL Cholesterol Urine WBC (Auto) RYLAN Screen RYLAN Titer Complement C3 Complement C4 Miscellaneous Test 12/28/16 11:39 WBC RBC Hgb Hct Plt Count Lymph % (Auto) [place] % (Auto) Lymph # Seg Neutrophils % Seg Neutrophils # PT INR POC ABG pH POC ABG pCO2 POC ABG pO2 Sodium Potassium Chloride Carbon Dioxide BUN Creatinine Glucose POC Glucose 295 H Lactic Acid Calcium Phosphorus Magnesium AST Alkaline Phosphatase Lactate Dehydrogenase C-Reactive Protein Total Protein Albumin Egazj-6-Ypzudwkip Fgkpc-1-Jdjhegqij Beta Globulins Gamma Globulins PEP Interpretation Triglycerides LDL Cholesterol Direct HDL Cholesterol Urine WBC (Auto) RYLAN Screen RYLAN Titer Complement C3 Complement C4 Miscellaneous Test Chest x-ray: report reviewed, image reviewed
--- NOTE | 2016-12-28 16:03 | Progress Note ---
Assessment and Plan Assessment and plan: 56-year-old woman with a past medical history of xbg-znhiyco-mgdhrqege diabetes , hypertension, chronic intermittent left middle toe infection presented to the hospital with right arm weakness and slurred speech. Patient also has history of frequent falls, chronic left knee pain and osteoarthritis and was planned for knee replacement. She was admitted to the hospital for stroke workup, she was found to have acute kidney injury on admission. Her kidney function continued to worsen, she was planned for CT-guided kidney biopsy on 12/15, but while she was at CT scan, she had an episode of cardiac arrest, she received CPR , unfortunately she had a very difficult airway multiple sclerosis for attempts were tried after which she had an emergency cricothyroidotomy. She most likely had prolonged period of anoxia leading to anoxic brain injury. Her mental status has not improved since then since this incidents she has been comatose. Sepsis secondary to UTI * Rocephin stopped * STILL WITH RECURRENT FEVER * started on cefepime and vancomycin * fever- repeat Blood cultures * OBSTRUCTING STONES NOTED ON CT * Klebsiella/candidada * Discussed with DR Paul * Consulted /VASCULAR INPUT NOTED * CT UROGRAM. DISCUSSED WITH NEPHROLOGY-OK TO PROCEED-revealed Renal infarct Renal Infarct * Consult hematology for AC initiation and anticoagulation work up * vascular studies requested Gram negative septicemia/sepsis * blood culture growing Klebsiella PNA, per ID switch to vancomycin and Cefapime * continue abx till 12/27 * ID input appreciated, abx have been changed to broaden coverage, Obstructing Nephrolithasis- Urogram reveals NO obstruction/Hydronephrosis * left sided. * Urology input noted Acute kidney injury now ESRD and HD dependent * likely secondary to ATN, nephrology input appreciated, continue hemodialysis * femoral vas cath/ will request changing to thoraci area. Toxic metabolic encephalopathy * Anoxic brain injury per MRI Type 2 diabetes * Continue sliding scale * increase basal insulin for better control Hypertension * BP acceptable, continue current management Anoxic Brain Injury/ Metabolic encephalopathy * She had an MRI of her brain on 12/12 did not show any acute changes * MRI brain shows ischemic injury in the subinsular regions, caudate nucleus, right posterior hippocampus * She most likely suffered this anoxic brain injury when she was in cardiac arrest. Acute respiratory failure, on MV greater than 96 hours * initially had emergent cricothyroidotomy on 12/15, and then sp tracheostomy on 12/18 * ON VENT DURING THE NIGHT TIME. Abdominal Distension * fup CT abdomen with PO contrast. Cardiogenic shock * Has been weaned off pressors Hypokalemia-PERSISTENT RECHECK POST REPLACEMENT Replete judiciously, given that she has TAYA Hypomagnesemia Was replaced Hyperlipidemia Continue statin Hypothyroidism TSH within normal limits Continue Synthroid at current dose Obesity Hypoventilation/SHELIA continue vent DVT prophylaxis continue heparin Discussed with family AND UPDATED ON FINDINGS and consultants Prognosis is poor. patient will likely SNF placement vs Hospice Placement, Her has been very resistant to hearing the poor prognosis of his . will need to organize a family meeting to discuss goals of care Family agreeable with Discharge to LTAC in am Awaiting Bed The high probability of a clinically significant, sudden or life threatening deterioration of the [pulmonary, cardiovascular, renal] system(s) required my full and direct attention, intervention and personal management. The aggregate critical care time was [35] minutes. This time is in addition to time spent performing reported procedures but includes the following: [X] Data Review and interpretation [X] Patient assessment and monitoring of vital signs [X] Documentation [X] Medication orders and management History Interval history: Patient seen and examined, remains in mild respiratory distress and not following commands. Hospitalist Physical - Physical exam Narrative exam: VITAL SIGNS: Reviewed. GENERAL: The patient appeared well nourished and normally developed. Vital signs as documented. HEAD: No signs of head trauma. EYES: Pupils are equal. Extraocular motions intact. EARS: Hearing grossly intact. MOUTH: Oropharynx is normal. NECK: No adenopathy, no JVD, tracheostomy site clean ON VENT CHEST: Chest with Crackles breath sounds bilaterally. CARDIAC: Regular rate and rhythm. S1 and S2, without murmurs, gallops, or rubs. VASCULAR: No Edema. Peripheral pulses normal and equal in all extremities. ABDOMEN: Soft, without detectable tenderness. Distended. No rebound or guarding, and no masses palpated. Bowel Sounds HYPOACTIVE. MUSCULOSKELETAL: Good range of motion of all major joints. Extremities without clubbing, cyanosis or edema. NEUROLOGIC EXAM: More Awake but disoriented not following commands. Unable to assess strength and sensory PSYCHIATRIC: unable to assess SKIN: No rash or lesions. - Constitutional Vitals: Temp Pulse Resp BP Pulse Ox 98.2 F 101 H 21 121/79 97 12/28/16 16:00 12/28/16 15:00 12/28/16 15:00 12/28/16 15:00 12/28/16 15:05 General appearance: Present: mild distress, well-nourished Results - Labs CBC & Chem 7: 12/23/16 05:15 12/28/16 01:30 Labs: Laboratory Last Values WBC 10.4 K/mm3 (4.5-11.0) 12/23/16 05:15 RBC 3.05 M/mm3 (3.65-5.03) L 12/23/16 05:15 Hgb 9.1 gm/dl (10.1-14.3) L 12/23/16 05:15 Hct 27.9 % (30.3-42.9) L 12/23/16 05:15 MCV 92 fl (79-97) 12/23/16 05:15 MCH 30 pg (28-32) 12/23/16 05:15 MCHC 33 % (30-34) 12/23/16 05:15 RDW 14.2 % (13.2-15.2) 12/23/16 05:15 Plt Count 164 K/mm3 (140-440) 12/23/16 05:15 Lymph % (Auto) 16.1 % (13.4-35.0) 12/23/16 05:15 [place] % (Auto) 4.9 % (0.0-7.3) 12/23/16 05:15 Eos % (Auto) 1.2 % (0.0-4.3) 12/23/16 05:15 Baso % (Auto) 0.3 % (0.0-1.8) 12/23/16 05:15 Lymph # 1.7 K/mm3 (1.2-5.4) 12/23/16 05:15 [place] # 0.5 K/mm3 (0.0-0.8) 12/23/16 05:15 Eos # 0.1 K/mm3 (0.0-0.4) 12/23/16 05:15 Baso # 0.0 K/mm3 (0.0-0.1) 12/23/16 05:15 Seg Neutrophils % 77.5 % (40.0-70.0) H 12/23/16 05:15 Seg Neutrophils # 8.1 K/mm3 (1.8-7.7) H 12/23/16 05:15 PT 17.6 Sec. (12.2-14.9) H 12/16/16 06:30 INR 1.45 (0.87-1.13) H 12/16/16 06:30 APTT 27.6 Sec. (24.2-36.6) 12/11/16 23:50 Thrombin Time 16.6 Sec. (15.1-19.6) 12/11/16 23:50 POC ABG pH 7.433 (7.35-7.45) 12/23/16 11:54 POC ABG pCO2 39.9 (35-45) 12/23/16 11:54 POC ABG pO2 187 (80-105) H 12/23/16 11:54 POC ABG HCO3 26.7 12/23/16 11:54 POC ABG Total CO2 28 12/23/16 11:54 POC ABG O2 Sat 100 12/23/16 11:54 POC ABG Base Excess 2 12/23/16 11:54 FiO2 30 % 12/23/16 11:54 Sodium 145 mmol/L (137-145) 12/28/16 01:30 Potassium 3.1 mmol/L (3.6-5.0) L 12/28/16 01:30 Chloride 112.5 mmol/L (98-107) H 12/28/16 01:30 Carbon Dioxide 17 mmol/L (22-30) L 12/28/16 01:30 Anion Gap 19 mmol/L 12/28/16 01:30 BUN 48 mg/dL (7-17) H 12/28/16 01:30 Creatinine 1.8 mg/dL (0.7-1.2) H 12/28/16 01:30 Estimated GFR 29 ml/min 12/28/16 01:30 BUN/Creatinine Ratio 26.66 % 12/28/16 01:30 Glucose 185 mg/dL (65-100) H 12/28/16 01:30 POC Glucose 295 (70-105) H 12/28/16 11:39 Lactic Acid 1.80 mmol/L (0.7-2.0) 12/15/16 Unknown Calcium 9.4 mg/dL (8.4-10.2) 12/28/16 01:30 Phosphorus 4.30 mg/dL (2.5-4.5) 12/25/16 04:38 Magnesium 1.70 mg/dL (1.7-2.3) 12/25/16 04:38 Total Bilirubin 0.20 mg/dL (0.1-1.2) 12/28/16 01:30 Direct Bilirubin < 0.2 mg/dL (0-0.2) 12/24/16 05:00 Indirect Bilirubin 0.0 mg/dL 12/16/16 15:30 AST 70 units/L (5-40) H 12/28/16 01:30 ALT 44 units/L (7-56) 12/28/16 01:30 Alkaline Phosphatase 68 units/L (35-129) 12/28/16 01:30 Lactate Dehydrogenase 275 units/L (91-180) H 12/28/16 01:30 Total Creatine Kinase 73 units/L (30-135) 12/15/16 04:35 Troponin T < 0.010 ng/mL (0.00-0.029) 12/11/16 23:50 C-Reactive Protein 12.10 mg/dL (0.00-1.30) H 12/22/16 15:07 Serum Total Protein 6.1 g/dL (6.1-8.1) 12/14/16 09:00 Total Protein 6.8 g/dL (6.3-8.2) 12/28/16 01:30 Albumin 2.8 g/dL (3.9-5) L 12/28/16 01:30 Albumin/Globulin Ratio 0.7 % 12/28/16 01:30 Krbyv-5-Aiwljqqsc 0.7 g/dL (0.2-0.3) H 12/14/16 09:00 Qatdp-0-Glidhczct 1.0 g/dL (0.5-0.9) H 12/14/16 09:00 Beta Globulins 0.7 g/dL (0.2-0.5) H 12/14/16 09:00 Gamma Globulins 0.7 g/dL (0.8-1.7) L 12/14/16 09:00 Abnorm Protein Band 1 see below 12/14/16 09:00 PEP Interpretation see below H 12/14/16 09:00 Triglycerides 166 mg/dL (2-149) H 12/13/16 03:39 Cholesterol 66 mg/dL (50-199) 12/13/16 03:39 LDL Cholesterol Direct 24 mg/dL (50-130) L 12/13/16 03:39 HDL Cholesterol 9 mg/dL (40-59) L 12/13/16 03:39 Cholesterol/HDL Ratio 7.33 % 12/13/16 03:39 TSH 2.640 mlU/mL (0.270-4.200) 12/12/16 15:23 Urine Color Yellow (Yellow) 12/12/16 21:30 Urine Turbidity Turbid (Clear) 12/12/16 21:30 Urine pH 5.0 (5.0-7.0) 12/12/16 21:30 Ur Specific [place] 1.015 (1.003-1.030) 12/12/16 21:30 Urine Protein 100 mg/dl mg/dL (Negative) 12/12/16 21:30 Urine Glucose (UA) Neg mg/dL (Negative) 12/12/16 21:30 Urine Ketones Neg mg/dL (Negative) 12/12/16 21:30 Urine Blood Lg (Negative) 12/12/16 21:30 Urine Nitrite Neg (Negative) 12/12/16 21:30 Urine Bilirubin Neg (Negative) 12/12/16 21:30 Urine Urobilinogen < 2.0 mg/dL (<2.0) 12/12/16 21:30 Ur Leukocyte Esterase Lg (Negative) 12/12/16 21:30 Urine WBC (Auto) > 182.0 /HPF (0.0-6.0) H 12/12/16 21:30 Urine RBC (Auto) 62.0 /HPF (0.0-6.0) 12/12/16 21:30 U Epithel Cells (Auto) 7.0 /HPF (0-13.0) 12/12/16 21:30 Urine Bacteria (Auto) 4+ /HPF (Negative) 12/12/16 21:30 Urine WBC Clumps 3+ /HPF 12/12/16 21:30 Calcium Oxalate Crystal 3+ 12/12/16 21:30 Random Vancomycin 12.8 ug/mL (0-40.0) 12/24/16 05:00 Urine Opiates Screen Presumptive negative 12/12/16 21:30 Urine Methadone Screen Presumptive negative 12/12/16 21:30 Ur Barbiturates Screen Presumptive negative 12/12/16 21:30 Ur Phencyclidine Scrn Presumptive negative 12/12/16 21:30 Ur Amphetamines Screen Presumptive negative 12/12/16 21:30 U Benzodiazepines Scrn Presumptive negative 12/12/16 21:30 Urine Cocaine Screen Presumptive negative 12/12/16 21:30 U Marijuana (THC) Screen Presumptive negative 12/12/16 21:30 Drugs of Abuse Note Disclamer 12/12/16 21:30 RYLAN Screen Positive (Negative) H 12/14/16 09:00 RYLAN Titer 1:320 (Negative) H 12/14/16 09:00 RYLAN Pattern Homogeneous 12/14/16 09:00 Proteinase 3 (PR3) Ab <1.0 AI (<1.0) 12/14/16 09:00 Myeloperoxidase Ab <1.0 AI (<1.0) 12/14/16 09:00 Glomerular Base Mem IgG <1.0 AI (<1.0) 12/14/16 09:00 Complement C3 206 mg/dL (90-180) H 12/14/16 09:00 Complement C4 56 mg/dL (16-47) H 12/14/16 09:00 Hepatitis A IgM Ab Non-reactive (NonReactive) 12/18/16 18:30 Hep Bs Antigen Non-reactive (Negative) 12/18/16 18:30 Hep B Core IgM Ab Non-reactive (NonReactive) 12/18/16 18:30 Hepatitis C Antibody Non-reactive (NonReactive) 12/18/16 18:30 Renal Biopsy Scanned into med rec 12/15/16 13:43 Miscellaneous Test Flexitest 1 H 12/23/16 06:00
--- NOTE | 2016-12-28 21:47 | Consultation ---
History of Present Illness - Reason for Consult Consult date: 12/28/16 - History of Present Illness Patient seen/examined, labs reviewed, all the labs ordered, still pending results. Patient remains comatose.Agree with re evaluating the renal infarct. Past History Past Medical History: diabetes, hypertension, other (frequent falls ) Social history: other (lives with ). denies: smoking, alcohol abuse, IV drug use Family history: no significant family history Medications and Allergies Allergies Allergy/AdvReac Type Severity Reaction Status Date / Time sulfamethoxazole Allergy Unknown Verified 12/11/16 23:49 [From Bactrim] trimethoprim [From Bactrim] Allergy Unknown Verified 12/11/16 23:49 Home Medications Medication Instructions Recorded Confirmed Last Taken Type Amitriptyline [Elavil] 100 mg PO QHS 12/12/16 12/12/16 12/11/16 History Atenolol [Tenormin] 50 mg PO DAILY 12/12/16 12/12/16 12/11/16 History Gabapentin [Neurontin] 800 mg PO Q8H 12/12/16 12/12/16 12/11/16 History HYDROcodone/APAP 5-325 [[place] 1 each PO Q6HR PRN 12/12/16 12/12/16 12/11/16 History 5/325] Levothyroxine [Synthroid] 100 mcg PO QAM 12/12/16 12/12/16 12/11/16 History Lisinopril [Zestril] 20 mg PO QDAY 12/12/16 12/12/16 12/11/16 History Simvastatin [Zocor TAB] 40 mg PO QHS 12/12/16 12/12/16 12/11/16 History glipiZIDE [Glucotrol] 10 mg PO BID 12/12/16 12/12/16 12/11/16 History metFORMIN [Glucophage] 1,000 mg PO BID 12/12/16 12/12/16 12/11/16 History metFORMIN [Glucophage] 500 mg PO QDAY 12/12/16 12/12/16 12/11/16 History Active Meds: Active Medications Acetaminophen (Tylenol) 650 mg PO Q4H PRN PRN Reason: Pain, Mild (1-3) Last Admin: 12/27/16 18:09 Dose: 650 mg Albumin Human (Alburx 25% (Albumin)) 12.5 gm IV DIPESH PRN PRN Reason: Hypotension Lipase/Protease/Amylase (Pancreaze Dr 10,500 Unit) 1 each FEEDTUBE PRN PRN PRN Reason: For Clogged Feeding Tube Artificial Tears (Isopto Tears 0.5%) 2 drops OU Q4H PRN PRN Reason: Dry Eye(s) Last Admin: 12/16/16 05:25 Dose: 2 drops Aspirin (Aspirin) 325 mg PO QDAY LENARD Last Admin: 12/28/16 09:59 Dose: 325 mg Bisacodyl (Dulcolax) 10 mg [place] QDAY PRN PRN Reason: Constipation Carvedilol (Coreg) 3.125 mg PO BID [facility] Last Admin: 12/28/16 09:59 Dose: 3.125 mg Dextrose (D50w (25gm)) 50 ml IV PRN PRN PRN Reason: Hypoglycemia Last Admin: 12/15/16 10:25 Dose: 50 ml Famotidine (Pepcid) 20 mg PO DAILY [facility] Last Admin: 12/28/16 09:59 Dose: 20 mg Heparin Sodium (Porcine) (Heparin) 5,000 unit SUB-Q Q8HR LENARD Last Admin: 12/28/16 14:20 Dose: 5,000 unit Heparin Sodium (Porcine) (Heparin) 5,000 unit IV DIPESH PRN PRN Reason: dwell Last Admin: 12/26/16 20:42 Dose: 5,000 unit Hydralazine HCl (Apresoline) 5 mg IV Q6H PRN PRN Reason: Keep SBP between 160-185 mm Hg Last Admin: 12/26/16 05:18 Dose: 5 mg Fluconazole (Diflucan) 200 mg in 100 mls @ 100 mls/hr IV Q24HR LENARD Last Admin: 12/28/16 09:58 Dose: 100 mls/hr Sodium Chloride (Nacl 0.9%) 100 mls @ 999 mls/hr IV DIPESH PRN PRN Reason: Hypotension Ceftriaxone Sodium (Rocephin/Ns 2 Gm/100 Ml) 2 gm in 100 mls @ 200 mls/hr IV Q24HR LENARD PRN Reason: Protocol Last Admin: 12/28/16 09:58 Dose: 200 mls/hr Potassium Chloride 40 meq/ (Sodium Chloride) 1,020 mls @ 75 mls/hr IV DIRECT LENARD Last Admin: 12/28/16 09:59 Dose: 75 mls/hr Insulin Aspart (Novolog) 0 units SUB-Q Q6HR [facility] PRN Reason: Protocol Last Admin: 12/28/16 17:24 Dose: 9 units Insulin Detemir (Levemir) 17 units SUB-Q DAILY [facility] Last Admin: 12/28/16 09:59 Dose: 17 units Magnesium Hydroxide (Milk Of Magnesia) 30 ml PO Q4H PRN PRN Reason: Constipation Ondansetron HCl (Zofran) 4 mg IV Q8H PRN PRN Reason: N/V unrelieved by Reglan Simple Syrup (Simple Syrup) 15 ml FEEDTUBE PRN PRN PRN Reason: Hypoglycemia Simple Syrup (Simple Syrup) 30 ml FEEDTUBE PRN PRN PRN Reason: Hypoglycemia Simvastatin (Zocor) 20 mg PO QHS [facility] Last Admin: 12/27/16 22:16 Dose: 20 mg Sodium Bicarbonate (Sodium Bicarbonate) 325 mg FEEDTUBE PRN PRN PRN Reason: For Clogged Feeding Tube Sodium Chloride (Sodium Chloride Flush Syringe 10 Ml) 10 ml IV PRN PRN PRN Reason: LINE FLUSH Review of Systems Neurological: other (comatose.) Exam - Constitutional Vitals: Temp Pulse Resp BP Pulse Ox 98.2 F 109 H 20 101/75 100 12/28/16 16:00 12/28/16 18:01 12/28/16 18:01 12/28/16 18:01 12/28/16 19:19 General appearance: Present: well-nourished, other (comatose.) - EENT Eyes: Present: PERRL ENT: hearing intact, clear oral mucosa - Neck Neck: Present: supple, normal ROM - Respiratory Respiratory effort: normal Respiratory: bilateral: CTA - Cardiovascular Heart Sounds: Present: S1 & S2. Absent: rub, click - Extremities Extremities: pulses symmetrical, No edema Peripheral Pulses: within normal limits - Abdominal General gastrointestinal: Present: soft, non-tender, non-distended, normal bowel sounds Female genitourinary: Present: deferred - Rectal Rectal Exam: deferred - Integumentary Integumentary: Present: clear, warm, dry Results - Labs CBC & Chem 7: 12/23/16 05:15 12/28/16 01:30 Labs: Abnormal lab results 12/27/16 12/28/16 12/28/16 Range/Units 23:47 01:30 01:30 Potassium 3.1 L (3.6-5.0) mmol/L Chloride 112.5 H (98-107) mmol/L Carbon Dioxide 17 L (22-30) mmol/L BUN 48 H (7-17) mg/dL Creatinine 1.8 H (0.7-1.2) mg/dL Glucose 185 H (65-100) mg/dL POC Glucose 221 H (70-105) AST 70 H (5-40) units/L Lactate Dehydrogenase 275 H (91-180) units/L Albumin 2.8 L (3.9-5) g/dL 12/28/16 12/28/16 12/28/16 Range/Units 05:36 11:39 17:20 Potassium (3.6-5.0) mmol/L Chloride (98-107) mmol/L Carbon Dioxide (22-30) mmol/L BUN (7-17) mg/dL Creatinine (0.7-1.2) mg/dL Glucose (65-100) mg/dL POC Glucose 182 H 295 H 303 H (70-105) AST (5-40) units/L Lactate Dehydrogenase (91-180) units/L Albumin (3.9-5) g/dL Assessment and Plan - Patient Problems (1) Chronic ulcer of toe of left foot Current Visit: Yes Status: Acute Qualifiers: Non-pressure ulcer stage: N Plan to address problem: this may go along the idea of easy infarct in other places, as a result of micro thrombi formation, and may be a reason to anticoagulate. Will do w/up and see. (2) Renal infarct Current Visit: Yes Status: Acute
[2016-12-28] MEDS: ZOCOR PO SCH (22:01)
[2016-12-29] MEDS: NOVOLOG SUB-Q SCH ×3 (00:51→12:39)
[2016-12-29 05:22] LABS: Albumin 2.7 g/dL (3.9-5); Albumin/Globulin Ratio 0.7 %; BUN/Creatinine Ratio 32.85; Bilirubin,Total 0.2 mg/dL (0.1-1.2); Calcium 9.4 mg/dL (8.4-10.2); Chloride 114.7 mmol/L (98-107); Potassium 3.3 mmol/L (3.6-5.0); Total Protein 6.6 g/dL (6.3-8.2)
[2016-12-29] MEDS: HEPARIN SUB-Q SCH (06:38)
--- NOTE | 2016-12-29 07:21 | Discharge Summary ---
Providers - Providers Date of Admission: 12/12/16 03:44 Attending physician: FRANCISCO JAVIER ANGELO MD 12/12/16 16:15 Speech Therapy Evaluation and Treat [CONS] Routine Reason For Exam: tia 12/13/16 11:39 Consult to Physician [CONS] Routine Consulting Provider: EJ CHEN Reason For Exam: ARF Place consult to:: Dr. Chen Notified:: Annalee RN Phone number called:: Was contact made?: Yes If yes, spoke with:: Nona service Time called:: 11:59 12/13/16 11:40 Consult to Dietitian/Nutrition [CONS] Routine Physician Instructions: Reason For Exam: Reason for Consult: Malnutrition 12/15/16 10:34 Consult to Interventional Radiology [CONS] Routine Consulting Provider: ALISSA AMBROSE Reason For Exam: vascath Place consult to:: VASCULAR Notified:: LALI Was contact made?: Yes If yes, spoke with:: LALI Time called:: 10:42 12/16/16 09:41 Consult to Physician [CONS] Routine Consulting Provider: JAMIE ROOT Reason For Exam: Concern for Anoxic Injury Place consult to:: Jamie Root Notified:: yes Was contact made?: Yes If yes, spoke with:: Dr. Root Time called:: 11:22 Comment:: added to list per protocol 12/16/16 13:56 Consult to Physician [CONS] Routine Consulting Provider: JAYNE SINCLAIR Reason For Exam: TRACHEOSTOMY Place consult to:: Dr Sinclair Notified:: Dr Sinclair Was contact made?: Yes If yes, spoke with:: Dr Shepherd spoke with Dr Sinclair in person Time called:: 13:58 Comment:: Dr Sinclair will discuss Surgery Speedy LEVI covering [facility] 12/16/2016 12/16/16 17:34 Consult to Dietitian/Nutrition [CONS] Routine Physician Instructions: Reason For Exam: Reason for Consult: Write/Manage Tube Feeding 12/16/16 17:55 Consult to PICC Line RN [CONS] Routine Reason For Exam: PICC Type Line:: PICC 12/18/16 07:35 Consult to Wound/ET Nurse [CONS] Routine Reason For Exam: sacrum and lt 3rd toe 12/20/16 13:58 Consult to Dietitian/Nutrition [CONS] Routine Physician Instructions: Reason For Exam: Tube Feeding Reason for Consult: Tube Feeding 12/22/16 11:16 Consult to Physician [CONS] Routine Consulting Provider: LETA BIRMINGHAM Reason For Exam: sepsis Place consult to:: Dr. Paul Notified:: yes Time called:: 11:55 Consult to Physician [CONS] Routine Consulting Provider: NONI OLIVEIRA Reason For Exam: cva Place consult to:: Dr. Chawla ("covering for the holidays") Notified:: yes Phone number called:: [phone] If yes, spoke with:: Talked to answering service/ Milagro Time called:: 11:59 12/23/16 16:07 Consult to Case Management [CONS] Routine Services Needed at Discharge: Other Notified:: yes Was contact made?: Yes If yes, spoke with:: left message Time called:: 08:11 Additional Physician Instructions: ltac eval 12/25/16 09:43 Consult to Physician [CONS] Routine Consulting Provider: TAMIKO QUESADA Reason For Exam: left obstructing renal calculi Place consult to:: Dr. Quesada's office Notified:: yes If yes, spoke with:: Tia Time called:: 11:10 12/27/16 12:52 Consult to Case Management [CONS] Stat Services Needed at Discharge: Other Notified:: oo call Additional Physician Instructions: [facility] Leta Paul MD M [phone] O [phone] OUTPATIENT PARENTERAL ANTIBIOTIC THERAPY ORDERS Diagnoses:complicated UTI and septicemia Antimicrobial administration: ceftriaxone 2 g IV q day and fluconazole 200 mg PO q day total 14 days from 12/20 to . Lines: Lab monitoring: CBC, CMP, CRP once a week preferly on Thursday morning Leta Paul Date: 12/27/16 12/27/16 13:32 Consult to Physician [CONS] Routine Consulting Provider: JAMIE ESTRADA Reason For Exam: renal infarct.?advise on coagul work up/AC startin Place consult to:: Dr. Estrada Notified:: Dr. Estrada Phone number called:: [phone] Was contact made?: Yes If yes, spoke with:: Dr. Onyegbula Time called:: 15:00 Primary care physician: [employer] Hospitalization Reason for admission: weakness Condition: Stable Hospital course: 56-year-old woman with a past medical history of eut-sufninm-ztdpbkeza diabetes , hypertension, chronic intermittent left middle toe infection presented to the hospital with right arm weakness and slurred speech. Patient also has history of frequent falls, chronic left knee pain and osteoarthritis and was planned for knee replacement. She was admitted to the hospital for stroke workup, she was found to have acute kidney injury on admission. Her kidney function continued to worsen, she was planned for CT-guided kidney biopsy on 12/15, but while she was at CT scan, she had an episode of cardiac arrest, she received CPR , unfortunately she had a very difficult airway with multiple attempts were tried after which she had an emergency cricothyroidotomy. She most likely had prolonged period of anoxia leading to anoxic brain injury. Her mental status has not improved since then since this incidents she has been comatose. Recommend removing Femoral vas cath as soon as possible. Family was updated of all the findings. she opens her eyes and tracks but not following any commands. Sepsis secondary to UTI * patient was treated with Rocephin and subsequently transitioned to cefepim and vancomycin foe klebsiella/chilo * intially obstructing stones were noted but subsequent urogram revealed no obstruction and renal function was improving with Dialysis Renal Infarct * Hematology recommended evaluation for coagulopathy Gram negative septicemia/sepsis-klebsilla pnumonia Nephrolithasis- Urogram reveals NO obstruction/Hydronephrosis ESRD and HD dependent * likely secondary to ATN, nephrology input appreciated, continue hemodialysis Toxic metabolic encephalopathy * Anoxic brain injury per MRI Type 2 diabetes * Continue sliding scale * increase basal insulin for better control Hypertension * BP acceptable, continue current management Anoxic Brain Injury/ Metabolic encephalopathy * She had an MRI of her brain on 12/12 did not show any acute changes * MRI brain shows ischemic injury in the subinsular regions, caudate nucleus, right posterior hippocampus * She most likely suffered this anoxic brain injury when she was in cardiac arrest. Acute respiratory failure, on MV greater than 96 hours * initially had emergent cricothyroidotomy on 12/15, and then sp tracheostomy on 12/18 * ON VENT DURING THE NIGHT TIME WITH PSV. Abdominal Distension * fup CT abdomen with PO contrast. Cardiogenic shock * Has been weaned off pressors Hypokalemia-PERSISTENT Hypomagnesemia Was replaced Hyperlipidemia Continue statin Hypothyroidism TSH within normal limits Continue Synthroid at current dose Obesity Hypoventilation/SHELIA continue vent Ischemic wound at the toe Disposition: DC/TX-70 ANOTHER TYPE HLTHCARE Time spent for discharge: 35 mins Core Measure Documentation - Palliative Care Palliative Care/ Comfort Measures: Not Applicable - Core Measures Any of the following diagnoses?: none - VTE Discharge Requirements Deep Vein Thrombosis/Pulmonary Embolism Present on Admission: No Exam - Physical Exam Narrative exam: VITAL SIGNS: Reviewed. GENERAL: The patient appeared well nourished and normally developed. Vital signs as documented. HEAD: No signs of head trauma. EYES: Pupils are equal. Extraocular motions intact. EARS: Hearing grossly intact. MOUTH: Oropharynx is normal. NECK: No adenopathy, no JVD, tracheostomy site clean ON VENT CHEST: Chest with Crackles breath sounds bilaterally. CARDIAC: Regular rate and rhythm. S1 and S2, without murmurs, gallops, or rubs. VASCULAR: No Edema. Peripheral pulses normal and equal in all extremities. ABDOMEN: Soft, without detectable tenderness. Distended. No rebound or guarding, and no masses palpated. Bowel Sounds HYPOACTIVE. MUSCULOSKELETAL: Good range of motion of all major joints. Extremities without clubbing, cyanosis or edema. NEUROLOGIC EXAM: More Awake but disoriented not following commands. Unable to assess strength and sensory PSYCHIATRIC: unable to assess SKIN: No rash or lesions. - Constitutional Vitals: Temp Pulse Resp BP Pulse Ox 98.6 F 105 H 20 140/80 100 12/29/16 00:00 12/29/16 06:56 12/29/16 06:01 12/29/16 06:01 12/29/16 06:01 Plan Activity: other (per [facility]) Special Instructions: other (CONTINUE CEFTRIAZON 2GM IV DAILY AND FLUCONAZOLE 200MG PO DAILY TILL 01/02/17) Follow up with: PRIMARY CARE, [Primary Care Provider] - 7 Days
--- NOTE | 2016-12-29 09:02 | Progress Note ---
Assessment and Plan 56 y/o female with acute respiratory failure secondary to cardiac arrest, acute renal failure now requiring HD and encephalopathy post arrest. 1. Continue PSV at night 2. Continue current tube feeds 3. Will need PEG at some point 4. TRach is likely indefinite as she likely has some sleep apnea 5. HOpeful transition to LTACH soon CCT 31 minutes. Subjective Date of service: 12/29/16 Principal diagnosis: Acute resp. failure Interval history: No acute events. Patient is contracted in bed but alert. Stuck tongue out on command. No family at bedside. Currently on PSV at 01/22. Objective Vital Signs - 12hr 12/28/16 12/28/16 12/28/16 21:01 21:40 22:00 Temperature Pulse Rate 100 H Pulse Rate [ From Monitor] Respiratory 21 Rate Blood Pressure 116/71 137/91 O2 Sat by Pulse 99 100 Oximetry O2 Sat by Pulse 100 Oximetry [ Assessment] 12/28/16 12/28/16 12/28/16 22:01 23:00 23:47 Temperature Pulse Rate 101 H 93 H 93 H Pulse Rate [ From Monitor] Respiratory 15 15 Rate Blood Pressure 137/91 139/82 139/82 O2 Sat by Pulse 100 100 Oximetry O2 Sat by Pulse Oximetry [ Assessment] 12/28/16 12/29/16 12/29/16 23:50 00:00 00:01 Temperature 98.6 F Pulse Rate 90 96 H Pulse Rate [ 96 H From Monitor] Respiratory 15 17 17 Rate Blood Pressure 139/82 147/63 O2 Sat by Pulse 100 100 100 Oximetry O2 Sat by Pulse Oximetry [ Assessment] 12/29/16 12/29/16 12/29/16 01:00 02:00 03:00 Temperature Pulse Rate 92 H 97 H 100 H Pulse Rate [ From Monitor] Respiratory 14 20 18 Rate Blood Pressure 124/74 136/67 144/73 O2 Sat by Pulse 100 100 100 Oximetry O2 Sat by Pulse Oximetry [ Assessment] 12/29/16 12/29/16 12/29/16 04:00 04:01 04:29 Temperature 98.4 F Pulse Rate 102 H 103 H Pulse Rate [ 102 H From Monitor] Respiratory 20 20 20 Rate Blood Pressure 135/91 135/91 O2 Sat by Pulse 97 100 100 Oximetry O2 Sat by Pulse Oximetry [ Assessment] 12/29/16 12/29/16 12/29/16 05:00 06:01 06:56 Temperature Pulse Rate 100 H 105 H 105 H Pulse Rate [ From Monitor] Respiratory 19 20 Rate Blood Pressure 130/76 140/80 O2 Sat by Pulse 100 100 Oximetry O2 Sat by Pulse Oximetry [ Assessment] 12/29/16 12/29/16 12/29/16 07:00 07:15 07:16 Temperature Pulse Rate 104 H Pulse Rate [ From Monitor] Respiratory 18 Rate Blood Pressure 135/78 O2 Sat by Pulse 100 96 Oximetry O2 Sat by Pulse 98 Oximetry [ Assessment] 12/29/16 12/29/16 07:39 08:00 Temperature 98.3 F Pulse Rate 103 H Pulse Rate [ From Monitor] Respiratory 21 Rate Blood Pressure 137/72 O2 Sat by Pulse 100 Oximetry O2 Sat by Pulse Oximetry [ Assessment] Constitutional: other (eyes open, does follow some commands) Eyes: non-icteric ENT: oropharynx moist, other (trach midline) Neck: supple, other (large in circumference) Effort: normal Ascultation: Bilateral: clear Cardiovascular: regular rate and rhythm (no mrg) Gastrointestinal: hypoactive bowel sounds, other (obese, distended) Integumentary: normal Extremities: no cyanosis, no edema, pink and warm Neurologic: other (flaccid extremities, not following commands; ? some posturing UEs; eyes are open and ? tracking today) Psychiatric: other (not able to assess) CBC and BMP: 12/23/16 05:15 12/29/16 04:40 ABG, PT/INR, D-dimer: ABG POC ABG pH 7.433 (7.35-7.45) 12/23/16 11:54 POC ABG pCO2 39.9 (35-45) 12/23/16 11:54 POC ABG pO2 187 (80-105) H 12/23/16 11:54 POC ABG HCO3 26.7 12/23/16 11:54 POC ABG Total CO2 28 12/23/16 11:54 POC ABG O2 Sat 100 12/23/16 11:54 PT/INR, D-dimer PT 17.6 Sec. (12.2-14.9) H 12/16/16 06:30 INR 1.45 (0.87-1.13) H 12/16/16 06:30 Abnormal lab findings: Abnormal Labs 12/12/16 12/12/16 12/12/16 08:06 12:27 15:23 WBC RBC Hgb Hct Plt Count Lymph % (Auto) [place] % (Auto) Lymph # Seg Neutrophils % Seg Neutrophils # PT INR POC ABG pH POC ABG pCO2 POC ABG pO2 Sodium Potassium Chloride Carbon Dioxide BUN Creatinine Glucose POC Glucose 299 H 281 H Lactic Acid 4.20 H* Calcium Phosphorus Magnesium AST ALT Alkaline Phosphatase Lactate Dehydrogenase C-Reactive Protein Total Protein Albumin Fohdi-3-Cxjfdmyhn Hcnre-1-Hexaehbrh Beta Globulins Gamma Globulins PEP Interpretation Triglycerides LDL Cholesterol Direct HDL Cholesterol Urine WBC (Auto) RYLAN Screen RYLAN Titer Complement C3 Complement C4 Miscellaneous Test 12/12/16 12/12/16 12/12/16 16:53 19:51 20:43 WBC RBC Hgb Hct Plt Count Lymph % (Auto) [place] % (Auto) Lymph # Seg Neutrophils % Seg Neutrophils # PT INR POC ABG pH POC ABG pCO2 POC ABG pO2 Sodium Potassium Chloride Carbon Dioxide BUN Creatinine Glucose POC Glucose 272 H 238 H Lactic Acid 2.90 H* Calcium Phosphorus Magnesium AST ALT Alkaline Phosphatase Lactate Dehydrogenase C-Reactive Protein Total Protein Albumin Zyvjc-1-Raucvejoj Ydizh-3-Mlpxdgwbn Beta Globulins Gamma Globulins PEP Interpretation Triglycerides LDL Cholesterol Direct HDL Cholesterol Urine WBC (Auto) RYLAN Screen RYLAN Titer Complement C3 Complement C4 Miscellaneous Test 12/12/16 12/13/16 12/13/16 21:30 03:39 03:39 WBC RBC Hgb Hct Plt Count 118 L Lymph % (Auto) 7.4 L [place] % (Auto) 7.6 H Lymph # 0.7 L Seg Neutrophils % 84.7 H Seg Neutrophils # 8.4 H PT INR POC ABG pH POC ABG pCO2 POC ABG pO2 Sodium 133 L Potassium Chloride 96.5 L Carbon Dioxide 18 L BUN 49 H Creatinine 3.1 H D Glucose 173 H POC Glucose Lactic Acid Calcium 8.3 L D Phosphorus Magnesium 1.20 L AST ALT Alkaline Phosphatase Lactate Dehydrogenase C-Reactive Protein Total Protein Albumin 2.6 L Tfqga-8-Yvxkswqnu Ivznp-4-Fjqmbipkv Beta Globulins Gamma Globulins PEP Interpretation Triglycerides 166 H LDL Cholesterol Direct 24 L HDL Cholesterol 9 L Urine WBC (Auto) > 182.0 H RYLAN Screen RYLAN Titer Complement C3 Complement C4 Miscellaneous Test 12/13/16 12/13/16 12/13/16 07:41 11:53 17:23 WBC RBC Hgb Hct Plt Count Lymph % (Auto) [place] % (Auto) Lymph # Seg Neutrophils % Seg Neutrophils # PT INR POC ABG pH POC ABG pCO2 POC ABG pO2 Sodium Potassium Chloride Carbon Dioxide BUN Creatinine Glucose POC Glucose 222 H 221 H 247 H Lactic Acid Calcium Phosphorus Magnesium AST ALT Alkaline Phosphatase Lactate Dehydrogenase C-Reactive Protein Total Protein Albumin Eaxgk-7-Xxregnwcy Itosg-6-Vobelnqeo Beta Globulins Gamma Globulins PEP Interpretation Triglycerides LDL Cholesterol Direct HDL Cholesterol Urine WBC (Auto) RYLAN Screen RYLAN Titer Complement C3 Complement C4 Miscellaneous Test 12/13/16 12/14/16 12/14/16 21:29 03:35 03:35 WBC RBC 3.42 L Hgb Hct Plt Count 86 L Lymph % (Auto) 6.1 L [place] % (Auto) Lymph # 0.3 L Seg Neutrophils % 87.3 H Seg Neutrophils # PT INR POC ABG pH POC ABG pCO2 POC ABG pO2 Sodium 133 L Potassium 5.1 H Chloride 96.2 L Carbon Dioxide 17 L BUN 63 H Creatinine 4.2 H Glucose 136 H POC Glucose 185 H Lactic Acid Calcium 8.1 L Phosphorus Magnesium 1.30 L AST ALT Alkaline Phosphatase Lactate Dehydrogenase C-Reactive Protein Total Protein Albumin Nifis-8-Kcmzyezng Udnux-4-Bakifexhw Beta Globulins Gamma Globulins PEP Interpretation Triglycerides LDL Cholesterol Direct HDL Cholesterol Urine WBC (Auto) RYLAN Screen RYLAN Titer Complement C3 Complement C4 Miscellaneous Test 12/14/16 12/14/16 12/14/16 08:32 09:00 09:00 WBC RBC Hgb Hct Plt Count Lymph % (Auto) [place] % (Auto) Lymph # Seg Neutrophils % Seg Neutrophils # PT INR POC ABG pH POC ABG pCO2 POC ABG pO2 Sodium Potassium Chloride Carbon Dioxide BUN Creatinine Glucose POC Glucose 152 H Lactic Acid Calcium Phosphorus Magnesium AST ALT Alkaline Phosphatase Lactate Dehydrogenase C-Reactive Protein Total Protein Albumin Ktgpq-0-Hdekblcts Nivmq-0-Pcovgwqck Beta Globulins Gamma Globulins PEP Interpretation Triglycerides LDL Cholesterol Direct HDL Cholesterol Urine WBC (Auto) RYLAN Screen Positive H RYLAN Titer 1:320 H Complement C3 206 H Complement C4 Miscellaneous Test 12/14/16 12/14/16 12/14/16 09:00 09:00 11:50 WBC RBC Hgb Hct Plt Count Lymph % (Auto) [place] % (Auto) Lymph # Seg Neutrophils % Seg Neutrophils # PT INR POC ABG pH POC ABG pCO2 POC ABG pO2 Sodium Potassium Chloride Carbon Dioxide BUN Creatinine Glucose POC Glucose 168 H Lactic Acid Calcium Phosphorus Magnesium AST ALT Alkaline Phosphatase Lactate Dehydrogenase C-Reactive Protein Total Protein Albumin 2.6 L Szbaw-8-Zrabpsjch 0.7 H Tcabs-4-Oirqfetxf 1.0 H Beta Globulins 0.7 H Gamma Globulins 0.7 L PEP Interpretation see below H Triglycerides LDL Cholesterol Direct HDL Cholesterol Urine WBC (Auto) RYLAN Screen RYLAN Titer Complement C3 Complement C4 56 H Miscellaneous Test 12/14/16 12/15/16 12/15/16 17:35 04:35 04:35 WBC 4.1 L RBC 3.39 L Hgb Hct Plt Count 84 L Lymph % (Auto) 8.8 L [place] % (Auto) Lymph # 0.4 L Seg Neutrophils % 83.6 H Seg Neutrophils # PT INR POC ABG pH POC ABG pCO2 POC ABG pO2 Sodium Potassium 6.0 H Chloride Carbon Dioxide 15 L BUN 79 H Creatinine 5.0 H Glucose POC Glucose 154 H Lactic Acid Calcium 8.0 L Phosphorus 6.70 H D Magnesium AST ALT Alkaline Phosphatase Lactate Dehydrogenase C-Reactive Protein Total Protein Albumin Dieha-5-Vmqkbogfa Buzok-7-Kxolrdpca Beta Globulins Gamma Globulins PEP Interpretation Triglycerides LDL Cholesterol Direct HDL Cholesterol Urine WBC (Auto) RYLAN Screen RYLAN Titer Complement C3 Complement C4 Miscellaneous Test 12/15/16 12/15/16 12/15/16 07:45 08:13 15:20 WBC RBC Hgb Hct Plt Count Lymph % (Auto) [place] % (Auto) Lymph # Seg Neutrophils % Seg Neutrophils # PT INR POC ABG pH 7.156 L 7.228 L POC ABG pCO2 48.7 H POC ABG pO2 232 H Sodium Potassium Chloride Carbon Dioxide BUN Creatinine Glucose POC Glucose 113 H Lactic Acid Calcium Phosphorus Magnesium AST ALT Alkaline Phosphatase Lactate Dehydrogenase C-Reactive Protein Total Protein Albumin Suvqc-5-Lcluiuise Hftfv-1-Uuvcsahih Beta Globulins Gamma Globulins PEP Interpretation Triglycerides LDL Cholesterol Direct HDL Cholesterol Urine WBC (Auto) RYLAN Screen RYLAN Titer Complement C3 Complement C4 Miscellaneous Test 12/15/16 12/15/16 12/15/16 23:53 Unknown Unknown WBC RBC 3.19 L Hgb 9.6 L Hct 29.8 L Plt Count 108 L Lymph % (Auto) 6.5 L [place] % (Auto) Lymph # 0.4 L Seg Neutrophils % 87.1 H Seg Neutrophils # PT 16.2 H INR 1.31 H POC ABG pH POC ABG pCO2 POC ABG pO2 Sodium Potassium Chloride Carbon Dioxide BUN Creatinine Glucose POC Glucose 232 H Lactic Acid Calcium Phosphorus Magnesium AST ALT Alkaline Phosphatase Lactate Dehydrogenase C-Reactive Protein Total Protein Albumin Xeela-7-Xtkuojswo Ydjip-5-Xwftyeglc Beta Globulins Gamma Globulins PEP Interpretation Triglycerides LDL Cholesterol Direct HDL Cholesterol Urine WBC (Auto) RYLAN Screen RYLAN Titer Complement C3 Complement C4 Miscellaneous Test 12/15/16 12/16/16 12/16/16 Unknown 04:58 05:39 WBC RBC Hgb Hct Plt Count Lymph % (Auto) [place] % (Auto) Lymph # Seg Neutrophils % Seg Neutrophils # PT INR POC ABG pH POC ABG pCO2 POC ABG pO2 143 H Sodium Potassium Chloride Carbon Dioxide 16 L BUN 85 H Creatinine 4.9 H Glucose 205 H POC Glucose 201 H Lactic Acid Calcium 8.2 L Phosphorus Magnesium AST 77 H ALT Alkaline Phosphatase 136 H Lactate Dehydrogenase C-Reactive Protein Total Protein Albumin 2.3 L Hysfs-9-Sljqucnyv Ditqc-9-Qxtjvpsnu Beta Globulins Gamma Globulins PEP Interpretation Triglycerides LDL Cholesterol Direct HDL Cholesterol Urine WBC (Auto) RYLAN Screen RYLAN Titer Complement C3 Complement C4 Miscellaneous Test 12/16/16 12/16/16 12/16/16 06:30 06:30 06:30 WBC 4.0 L RBC 3.23 L Hgb 9.6 L Hct 29.8 L Plt Count 110 L Lymph % (Auto) 11.3 L [place] % (Auto) Lymph # 0.5 L Seg Neutrophils % 81.2 H Seg Neutrophils # PT 17.6 H INR 1.45 H POC ABG pH POC ABG pCO2 POC ABG pO2 Sodium Potassium Chloride Carbon Dioxide 20 L BUN 57 H Creatinine 3.6 H Glucose 176 H POC Glucose Lactic Acid Calcium 8.1 L Phosphorus 4.90 H D Magnesium 1.60 L AST 46 H ALT Alkaline Phosphatase 137 H Lactate Dehydrogenase C-Reactive Protein Total Protein Albumin 2.3 L Ysiam-5-Noejuxqjj Papou-4-Xkxccixji Beta Globulins Gamma Globulins PEP Interpretation Triglycerides LDL Cholesterol Direct HDL Cholesterol Urine WBC (Auto) RYLAN Screen RYLAN Titer Complement C3 Complement C4 Miscellaneous Test 12/16/16 12/16/16 12/16/16 11:16 15:30 17:23 WBC RBC Hgb Hct Plt Count Lymph % (Auto) [place] % (Auto) Lymph # Seg Neutrophils % Seg Neutrophils # PT INR POC ABG pH POC ABG pCO2 POC ABG pO2 Sodium Potassium Chloride Carbon Dioxide BUN Creatinine Glucose POC Glucose 194 H 209 H Lactic Acid Calcium Phosphorus Magnesium AST 43 H ALT Alkaline Phosphatase 156 H Lactate Dehydrogenase C-Reactive Protein Total Protein 5.6 L Albumin 2.4 L Hvxrz-2-Smjqbuzrx Ghnxz-7-Brewkhhpj Beta Globulins Gamma Globulins PEP Interpretation Triglycerides LDL Cholesterol Direct HDL Cholesterol Urine WBC (Auto) RYLAN Screen RYLAN Titer Complement C3 Complement C4 Miscellaneous Test 12/16/16 12/17/16 12/17/16 23:35 03:38 05:18 WBC RBC Hgb Hct Plt Count Lymph % (Auto) [place] % (Auto) Lymph # Seg Neutrophils % Seg Neutrophils # PT INR POC ABG pH 7.485 H POC ABG pCO2 POC ABG pO2 Sodium Potassium Chloride Carbon Dioxide BUN Creatinine Glucose POC Glucose 179 H 201 H Lactic Acid Calcium Phosphorus Magnesium AST ALT Alkaline Phosphatase Lactate Dehydrogenase C-Reactive Protein Total Protein Albumin Ierqk-5-Ccsoxkmps Yjfje-8-Eosqvsrid Beta Globulins Gamma Globulins PEP Interpretation Triglycerides LDL Cholesterol Direct HDL Cholesterol Urine WBC (Auto) RYLAN Screen RYLAN Titer Complement C3 Complement C4 Miscellaneous Test 12/17/16 12/17/16 12/17/16 07:24 12:00 13:58 WBC RBC 3.02 L Hgb 9.2 L Hct 27.2 L Plt Count 100 L Lymph % (Auto) [place] % (Auto) 7.9 H Lymph # 0.8 L Seg Neutrophils % 75.0 H Seg Neutrophils # PT INR POC ABG pH POC ABG pCO2 POC ABG pO2 Sodium Potassium 3.3 L Chloride Carbon Dioxide BUN 50 H Creatinine 3.1 H Glucose 181 H POC Glucose 176 H Lactic Acid Calcium Phosphorus Magnesium AST ALT Alkaline Phosphatase 155 H Lactate Dehydrogenase C-Reactive Protein Total Protein Albumin 2.2 L Yqydz-8-Esyfhyboa Ylaai-9-Fzdumdzpr Beta Globulins Gamma Globulins PEP Interpretation Triglycerides LDL Cholesterol Direct HDL Cholesterol Urine WBC (Auto) RYLAN Screen RYLAN Titer Complement C3 Complement C4 Miscellaneous Test 12/17/16 12/18/16 12/18/16 17:11 00:05 05:40 WBC RBC Hgb Hct Plt Count Lymph % (Auto) [place] % (Auto) Lymph # Seg Neutrophils % Seg Neutrophils # PT INR POC ABG pH POC ABG pCO2 POC ABG pO2 Sodium Potassium Chloride Carbon Dioxide BUN Creatinine Glucose POC Glucose 152 H 155 H 170 H Lactic Acid Calcium Phosphorus Magnesium AST ALT Alkaline Phosphatase Lactate Dehydrogenase C-Reactive Protein Total Protein Albumin Qucpi-6-Uguzhrodi Nnqii-1-Jzapixpcv Beta Globulins Gamma Globulins PEP Interpretation Triglycerides LDL Cholesterol Direct HDL Cholesterol Urine WBC (Auto) RYLAN Screen RYLAN Titer Complement C3 Complement C4 Miscellaneous Test 12/18/16 12/18/16 12/18/16 07:52 12:21 15:10 WBC RBC Hgb Hct Plt Count Lymph % (Auto) [place] % (Auto) Lymph # Seg Neutrophils % Seg Neutrophils # PT INR POC ABG pH POC ABG pCO2 POC ABG pO2 Sodium Potassium 2.9 L* Chloride Carbon Dioxide BUN 69 H Creatinine 4.5 H Glucose 150 H POC Glucose 165 H 130 H Lactic Acid Calcium Phosphorus Magnesium AST ALT Alkaline Phosphatase Lactate Dehydrogenase C-Reactive Protein Total Protein Albumin Szrij-3-Ajfcapwlj Gurrk-1-Djhskvzan Beta Globulins Gamma Globulins PEP Interpretation Triglycerides LDL Cholesterol Direct HDL Cholesterol Urine WBC (Auto) RYLAN Screen RYLAN Titer Complement C3 Complement C4 Miscellaneous Test 12/18/16 12/18/16 12/19/16 18:43 23:33 03:04 WBC RBC Hgb Hct Plt Count Lymph % (Auto) [place] % (Auto) Lymph # Seg Neutrophils % Seg Neutrophils # PT INR POC ABG pH 7.455 H POC ABG pCO2 POC ABG pO2 Sodium Potassium Chloride Carbon Dioxide BUN Creatinine Glucose POC Glucose 176 H 174 H Lactic Acid Calcium Phosphorus Magnesium AST ALT Alkaline Phosphatase Lactate Dehydrogenase C-Reactive Protein Total Protein Albumin Lulsw-8-Epebwtkrn Hilxw-9-Copbnhooq Beta Globulins Gamma Globulins PEP Interpretation Triglycerides LDL Cholesterol Direct HDL Cholesterol Urine WBC (Auto) RYLAN Screen RYLAN Titer Complement C3 Complement C4 Miscellaneous Test 12/19/16 12/19/16 12/19/16 05:47 10:40 10:40 WBC RBC 3.06 L Hgb 9.2 L Hct 28.0 L Plt Count 126 L Lymph % (Auto) [place] % (Auto) Lymph # Seg Neutrophils % Seg Neutrophils # PT INR POC ABG pH POC ABG pCO2 POC ABG pO2 Sodium Potassium 3.0 L Chloride Carbon Dioxide BUN 55 H Creatinine 3.4 H Glucose 161 H POC Glucose 160 H Lactic Acid Calcium Phosphorus 5.10 H Magnesium AST ALT Alkaline Phosphatase Lactate Dehydrogenase C-Reactive Protein Total Protein Albumin Hbkkr-7-Ljhystnam Dwjht-2-Bekbdyfnx Beta Globulins Gamma Globulins PEP Interpretation Triglycerides LDL Cholesterol Direct HDL Cholesterol Urine WBC (Auto) RYLAN Screen RYLAN Titer Complement C3 Complement C4 Miscellaneous Test 12/19/16 12/19/16 12/20/16 13:00 18:04 00:04 WBC RBC Hgb Hct Plt Count Lymph % (Auto) [place] % (Auto) Lymph # Seg Neutrophils % Seg Neutrophils # PT INR POC ABG pH POC ABG pCO2 POC ABG pO2 Sodium Potassium Chloride Carbon Dioxide BUN Creatinine Glucose POC Glucose 173 H 129 H 152 H Lactic Acid Calcium Phosphorus Magnesium AST ALT Alkaline Phosphatase Lactate Dehydrogenase C-Reactive Protein Total Protein Albumin Xghec-8-Zptrugqcy Mtxss-9-Lctbtcqwt Beta Globulins Gamma Globulins PEP Interpretation Triglycerides LDL Cholesterol Direct HDL Cholesterol Urine WBC (Auto) RYLAN Screen RYLAN Titer Complement C3 Complement C4 Miscellaneous Test 12/20/16 12/20/16 12/20/16 05:34 05:45 10:47 WBC RBC Hgb Hct Plt Count Lymph % (Auto) [place] % (Auto) Lymph # Seg Neutrophils % Seg Neutrophils # PT INR POC ABG pH POC ABG pCO2 POC ABG pO2 110 H Sodium Potassium 3.4 L Chloride Carbon Dioxide BUN 72 H Creatinine 4.0 H Glucose 130 H POC Glucose 175 H Lactic Acid Calcium Phosphorus Magnesium AST ALT Alkaline Phosphatase Lactate Dehydrogenase C-Reactive Protein Total Protein Albumin Dculd-4-Iwhyfclwq Tqogo-2-Clbkrfmls Beta Globulins Gamma Globulins PEP Interpretation Triglycerides LDL Cholesterol Direct HDL Cholesterol Urine WBC (Auto) RYLAN Screen RYLAN Titer Complement C3 Complement C4 Miscellaneous Test 12/20/16 12/20/16 12/20/16 11:56 18:14 23:43 WBC RBC Hgb Hct Plt Count Lymph % (Auto) [place] % (Auto) Lymph # Seg Neutrophils % Seg Neutrophils # PT INR POC ABG pH POC ABG pCO2 POC ABG pO2 Sodium Potassium Chloride Carbon Dioxide BUN Creatinine Glucose POC Glucose 130 H 142 H 193 H Lactic Acid Calcium Phosphorus Magnesium AST ALT Alkaline Phosphatase Lactate Dehydrogenase C-Reactive Protein Total Protein Albumin Lxuzv-4-Fccymiucf Gwxui-7-Xrhnsnpfh Beta Globulins Gamma Globulins PEP Interpretation Triglycerides LDL Cholesterol Direct HDL Cholesterol Urine WBC (Auto) RYLAN Screen RYLAN Titer Complement C3 Complement C4 Miscellaneous Test 12/21/16 12/21/16 12/21/16 05:10 08:32 12:29 WBC RBC Hgb Hct Plt Count Lymph % (Auto) [place] % (Auto) Lymph # Seg Neutrophils % Seg Neutrophils # PT INR POC ABG pH POC ABG pCO2 POC ABG pO2 Sodium 146 H Potassium Chloride Carbon Dioxide BUN 85 H Creatinine 4.3 H Glucose 184 H POC Glucose 204 H 214 H Lactic Acid Calcium Phosphorus Magnesium AST ALT Alkaline Phosphatase Lactate Dehydrogenase C-Reactive Protein Total Protein Albumin Jemen-6-Vcexcrofd Ybxxg-6-Yhchmcukr Beta Globulins Gamma Globulins PEP Interpretation Triglycerides LDL Cholesterol Direct HDL Cholesterol Urine WBC (Auto) RYLAN Screen RYLAN Titer Complement C3 Complement C4 Miscellaneous Test 12/21/16 12/21/16 12/22/16 18:06 23:31 05:38 WBC RBC Hgb Hct Plt Count Lymph % (Auto) [place] % (Auto) Lymph # Seg Neutrophils % Seg Neutrophils # PT INR POC ABG pH POC ABG pCO2 POC ABG pO2 Sodium Potassium Chloride Carbon Dioxide BUN Creatinine Glucose POC Glucose 184 H 191 H 182 H Lactic Acid Calcium Phosphorus Magnesium AST ALT Alkaline Phosphatase Lactate Dehydrogenase C-Reactive Protein Total Protein Albumin Dxpla-4-Ryapghcyo Wjela-1-Ntlgrgtqv Beta Globulins Gamma Globulins PEP Interpretation Triglycerides LDL Cholesterol Direct HDL Cholesterol Urine WBC (Auto) RYLAN Screen RYLAN Titer Complement C3 Complement C4 Miscellaneous Test 12/22/16 12/22/16 12/22/16 06:30 12:23 15:07 WBC RBC Hgb Hct Plt Count Lymph % (Auto) [place] % (Auto) Lymph # Seg Neutrophils % Seg Neutrophils # PT INR POC ABG pH POC ABG pCO2 POC ABG pO2 Sodium 148 H Potassium 3.3 L Chloride Carbon Dioxide BUN 87 H Creatinine 4.4 H Glucose 186 H POC Glucose 205 H Lactic Acid Calcium Phosphorus Magnesium AST ALT Alkaline Phosphatase Lactate Dehydrogenase C-Reactive Protein 12.10 H Total Protein Albumin Rwble-5-Cdxicnspj Nvtjm-2-Gzygdsumk Beta Globulins Gamma Globulins PEP Interpretation Triglycerides LDL Cholesterol Direct HDL Cholesterol Urine WBC (Auto) RYLAN Screen RYLAN Titer Complement C3 Complement C4 Miscellaneous Test 12/22/16 12/22/16 12/23/16 16:25 22:49 05:15 WBC RBC Hgb Hct Plt Count Lymph % (Auto) [place] % (Auto) Lymph # Seg Neutrophils % Seg Neutrophils # PT INR POC ABG pH POC ABG pCO2 POC ABG pO2 Sodium Potassium 3.5 L Chloride Carbon Dioxide BUN 49 H Creatinine 2.6 H Glucose 189 H POC Glucose 187 H 195 H Lactic Acid Calcium Phosphorus Magnesium AST ALT Alkaline Phosphatase Lactate Dehydrogenase C-Reactive Protein Total Protein Albumin Ljgxa-5-Qpcapvakv Jxyan-0-Trfctkgis Beta Globulins Gamma Globulins PEP Interpretation Triglycerides LDL Cholesterol Direct HDL Cholesterol Urine WBC (Auto) RYLAN Screen RYLAN Titer Complement C3 Complement C4 Miscellaneous Test 12/23/16 12/23/16 12/23/16 05:15 06:00 06:00 WBC RBC 3.05 L Hgb 9.1 L Hct 27.9 L Plt Count Lymph % (Auto) [place] % (Auto) Lymph # Seg Neutrophils % 77.5 H Seg Neutrophils # 8.1 H PT INR POC ABG pH POC ABG pCO2 POC ABG pO2 Sodium Potassium Chloride Carbon Dioxide BUN Creatinine Glucose POC Glucose 209 H Lactic Acid Calcium Phosphorus Magnesium AST ALT Alkaline Phosphatase Lactate Dehydrogenase C-Reactive Protein Total Protein Albumin Hojem-5-Solvpqwmq Esyud-5-Woeazkvzp Beta Globulins Gamma Globulins PEP Interpretation Triglycerides LDL Cholesterol Direct HDL Cholesterol Urine WBC (Auto) RYLAN Screen RYLAN Titer Complement C3 Complement C4 Miscellaneous Test Flexitest 1 H 12/23/16 12/23/16 12/23/16 11:54 12:05 17:31 WBC RBC Hgb Hct Plt Count Lymph % (Auto) [place] % (Auto) Lymph # Seg Neutrophils % Seg Neutrophils # PT INR POC ABG pH POC ABG pCO2 POC ABG pO2 187 H Sodium Potassium Chloride Carbon Dioxide BUN Creatinine Glucose POC Glucose 231 H 233 H Lactic Acid Calcium Phosphorus Magnesium AST ALT Alkaline Phosphatase Lactate Dehydrogenase C-Reactive Protein Total Protein Albumin Afnjc-4-Vwxmyqbpp Akdgk-3-Ymatvtgdz Beta Globulins Gamma Globulins PEP Interpretation Triglycerides LDL Cholesterol Direct HDL Cholesterol Urine WBC (Auto) RYLAN Screen RYLAN Titer Complement C3 Complement C4 Miscellaneous Test 12/23/16 12/24/16 12/24/16 23:41 05:00 05:00 WBC RBC Hgb Hct Plt Count Lymph % (Auto) [place] % (Auto) Lymph # Seg Neutrophils % Seg Neutrophils # PT INR POC ABG pH POC ABG pCO2 POC ABG pO2 Sodium Potassium 2.7 L* D Chloride Carbon Dioxide BUN 63 H Creatinine 2.8 H Glucose 284 H POC Glucose 283 H Lactic Acid Calcium Phosphorus Magnesium AST ALT Alkaline Phosphatase Lactate Dehydrogenase C-Reactive Protein Total Protein Albumin 2.7 L Yglyh-8-Faypodvke Aomfs-8-Ostnjkfrp Beta Globulins Gamma Globulins PEP Interpretation Triglycerides LDL Cholesterol Direct HDL Cholesterol Urine WBC (Auto) RYLAN Screen RYLAN Titer Complement C3 Complement C4 Miscellaneous Test 12/24/16 12/24/16 12/24/16 05:08 11:53 17:40 WBC RBC Hgb Hct Plt Count Lymph % (Auto) [place] % (Auto) Lymph # Seg Neutrophils % Seg Neutrophils # PT INR POC ABG pH POC ABG pCO2 POC ABG pO2 Sodium Potassium Chloride Carbon Dioxide BUN Creatinine Glucose POC Glucose 312 H 236 H 236 H Lactic Acid Calcium Phosphorus Magnesium AST ALT Alkaline Phosphatase Lactate Dehydrogenase C-Reactive Protein Total Protein Albumin Lzndq-3-Yvzilrrjb Islwz-8-Fqtsvmpzw Beta Globulins Gamma Globulins PEP Interpretation Triglycerides LDL Cholesterol Direct HDL Cholesterol Urine WBC (Auto) RYLAN Screen RYLAN Titer Complement C3 Complement C4 Miscellaneous Test 12/24/16 12/25/16 12/25/16 23:47 04:38 05:11 WBC RBC Hgb Hct Plt Count Lymph % (Auto) [place] % (Auto) Lymph # Seg Neutrophils % Seg Neutrophils # PT INR POC ABG pH POC ABG pCO2 POC ABG pO2 Sodium 147 H Potassium 2.8 L* Chloride 109.9 H Carbon Dioxide 20 L BUN 64 H Creatinine 2.8 H Glucose 243 H POC Glucose 280 H 254 H Lactic Acid Calcium Phosphorus Magnesium AST ALT Alkaline Phosphatase Lactate Dehydrogenase C-Reactive Protein Total Protein Albumin 2.7 L Cssxz-1-Mdznaiady Aclhl-4-Hlvfwyvcv Beta Globulins Gamma Globulins PEP Interpretation Triglycerides LDL Cholesterol Direct HDL Cholesterol Urine WBC (Auto) RYLAN Screen RYLAN Titer Complement C3 Complement C4 Miscellaneous Test 12/25/16 12/25/16 12/25/16 10:08 11:35 18:16 WBC RBC Hgb Hct Plt Count Lymph % (Auto) [place] % (Auto) Lymph # Seg Neutrophils % Seg Neutrophils # PT INR POC ABG pH POC ABG pCO2 POC ABG pO2 Sodium Potassium Chloride Carbon Dioxide BUN Creatinine Glucose POC Glucose 252 H 253 H 230 H Lactic Acid Calcium Phosphorus Magnesium AST ALT Alkaline Phosphatase Lactate Dehydrogenase C-Reactive Protein Total Protein Albumin Xtqer-8-Xmqrcqstk Umfov-5-Ygprqacal Beta Globulins Gamma Globulins PEP Interpretation Triglycerides LDL Cholesterol Direct HDL Cholesterol Urine WBC (Auto) RYLAN Screen RYLAN Titer Complement C3 Complement C4 Miscellaneous Test 12/26/16 12/26/16 12/26/16 00:00 03:30 05:42 WBC RBC Hgb Hct Plt Count Lymph % (Auto) [place] % (Auto) Lymph # Seg Neutrophils % Seg Neutrophils # PT INR POC ABG pH POC ABG pCO2 POC ABG pO2 Sodium 149 H Potassium 2.6 L* Chloride 113.0 H Carbon Dioxide 20 L BUN 61 H Creatinine 2.6 H Glucose 182 H POC Glucose 177 H 183 H Lactic Acid Calcium Phosphorus Magnesium AST 46 H ALT Alkaline Phosphatase Lactate Dehydrogenase C-Reactive Protein Total Protein Albumin 2.7 L Vxtdl-0-Rzkdcqvdp Wteha-3-Xhsqcrnhr Beta Globulins Gamma Globulins PEP Interpretation Triglycerides LDL Cholesterol Direct HDL Cholesterol Urine WBC (Auto) RYLAN Screen RYLAN Titer Complement C3 Complement C4 Miscellaneous Test 12/26/16 12/26/16 12/27/16 11:14 18:40 00:22 WBC RBC Hgb Hct Plt Count Lymph % (Auto) [place] % (Auto) Lymph # Seg Neutrophils % Seg Neutrophils # PT INR POC ABG pH POC ABG pCO2 POC ABG pO2 Sodium 150 H Potassium 3.1 L Chloride 116.1 H Carbon Dioxide 17 L BUN 59 H Creatinine 2.3 H Glucose 180 H POC Glucose 195 H 182 H Lactic Acid Calcium Phosphorus Magnesium AST ALT Alkaline Phosphatase Lactate Dehydrogenase C-Reactive Protein Total Protein Albumin Auxrk-4-Zhntzjzae Ylioz-5-Pkpqgkbzr Beta Globulins Gamma Globulins PEP Interpretation Triglycerides LDL Cholesterol Direct HDL Cholesterol Urine WBC (Auto) RYLAN Screen RYLAN Titer Complement C3 Complement C4 Miscellaneous Test 12/27/16 12/27/16 12/27/16 04:00 05:13 12:42 WBC RBC Hgb Hct Plt Count Lymph % (Auto) [place] % (Auto) Lymph # Seg Neutrophils % Seg Neutrophils # PT INR POC ABG pH POC ABG pCO2 POC ABG pO2 Sodium 149 H Potassium 2.9 L* Chloride 112.1 H Carbon Dioxide 20 L BUN 43 H Creatinine 1.9 H Glucose 160 H POC Glucose 168 H 163 H Lactic Acid Calcium Phosphorus Magnesium AST 75 H ALT Alkaline Phosphatase Lactate Dehydrogenase C-Reactive Protein Total Protein Albumin 2.9 L Keirc-4-Hydpqrste Vxcsf-1-Oehcrewsf Beta Globulins Gamma Globulins PEP Interpretation Triglycerides LDL Cholesterol Direct HDL Cholesterol Urine WBC (Auto) RYLAN Screen RYLAN Titer Complement C3 Complement C4 Miscellaneous Test 12/27/16 12/27/16 12/27/16 13:50 18:15 23:47 WBC RBC Hgb Hct Plt Count Lymph % (Auto) [place] % (Auto) Lymph # Seg Neutrophils % Seg Neutrophils # PT INR POC ABG pH POC ABG pCO2 POC ABG pO2 Sodium 150 H Potassium Chloride 115.9 H Carbon Dioxide 19 L BUN 47 H Creatinine 1.8 H Glucose 158 H POC Glucose 137 H 221 H Lactic Acid Calcium Phosphorus Magnesium AST ALT Alkaline Phosphatase Lactate Dehydrogenase C-Reactive Protein Total Protein Albumin Nthlq-3-Wmqwmrccs Grjjs-4-Cydpcjhuk Beta Globulins Gamma Globulins PEP Interpretation Triglycerides LDL Cholesterol Direct HDL Cholesterol Urine WBC (Auto) RYLAN Screen RYLAN Titer Complement C3 Complement C4 Miscellaneous Test 12/28/16 12/28/16 12/28/16 01:30 01:30 05:36 WBC RBC Hgb Hct Plt Count Lymph % (Auto) [place] % (Auto) Lymph # Seg Neutrophils % Seg Neutrophils # PT INR POC ABG pH POC ABG pCO2 POC ABG pO2 Sodium Potassium 3.1 L Chloride 112.5 H Carbon Dioxide 17 L BUN 48 H Creatinine 1.8 H Glucose 185 H POC Glucose 182 H Lactic Acid Calcium Phosphorus Magnesium AST 70 H ALT Alkaline Phosphatase Lactate Dehydrogenase 275 H C-Reactive Protein Total Protein Albumin 2.8 L Emyyx-9-Avbrrnvmn Ewayh-7-Fmxmhooql Beta Globulins Gamma Globulins PEP Interpretation Triglycerides LDL Cholesterol Direct HDL Cholesterol Urine WBC (Auto) RYLAN Screen RYLAN Titer Complement C3 Complement C4 Miscellaneous Test 12/28/16 12/28/16 12/29/16 11:39 17:20 00:25 WBC RBC Hgb Hct Plt Count Lymph % (Auto) [place] % (Auto) Lymph # Seg Neutrophils % Seg Neutrophils # PT INR POC ABG pH POC ABG pCO2 POC ABG pO2 Sodium Potassium Chloride Carbon Dioxide BUN Creatinine Glucose POC Glucose 295 H 303 H 292 H Lactic Acid Calcium Phosphorus Magnesium AST ALT Alkaline Phosphatase Lactate Dehydrogenase C-Reactive Protein Total Protein Albumin Uzjio-5-Bttrxdoau Evass-0-Vwkfxwozl Beta Globulins Gamma Globulins PEP Interpretation Triglycerides LDL Cholesterol Direct HDL Cholesterol Urine WBC (Auto) RYLAN Screen RYLAN Titer Complement C3 Complement C4 Miscellaneous Test 12/29/16 12/29/16 04:40 06:29 WBC RBC Hgb Hct Plt Count Lymph % (Auto) [place] % (Auto) Lymph # Seg Neutrophils % Seg Neutrophils # PT INR POC ABG pH POC ABG pCO2 POC ABG pO2 Sodium Potassium 3.3 L Chloride 114.7 H Carbon Dioxide 16 L BUN 46 H Creatinine 1.4 H Glucose 304 H POC Glucose 338 H Lactic Acid Calcium Phosphorus Magnesium AST 108 H ALT 59 H Alkaline Phosphatase Lactate Dehydrogenase C-Reactive Protein Total Protein Albumin 2.7 L Jzcej-9-Zsperpqat Beunb-8-Gcbxsxtsr Beta Globulins Gamma Globulins PEP Interpretation Triglycerides LDL Cholesterol Direct HDL Cholesterol Urine WBC (Auto) RYLAN Screen RYLAN Titer Complement C3 Complement C4 Miscellaneous Test
[2016-12-29] MEDS ORDERED: SODIUM BICARBONATE PO SCH (10:00)
[2016-12-29] MEDS: ROCEPHIN/NS 2 GM/100 ML 2 GM/100 ML BAG IV SCH (10:57)
[2016-12-29] MEDS: COREG PO SCH (11:04)
[2016-12-29] MEDS: PEPCID PO SCH (11:04)
[2016-12-29] MEDS: ASPIRIN PO SCH (11:05)
[2016-12-29] MEDS: LEVEMIR SUB-Q SCH (11:05)
[2016-12-29] MEDS: DIFLUCAN 200 MG/100 ML BAG IV SCH (11:11)
--- NOTE | 2016-12-29 11:29 | Progress Note ---
Assessment and Plan Assessment: 1) Sepsis: resolved. Initial etiology most likely UTI/bacteremia. Etiology ? renal infarct ? pyelonephritis -repeat blood cx negative -LE US negative for DVT -CRP=12 -Procalcitonin=0.7 2) Complicated UTI with left calculi x 2 and left sided infarct versus pyelonephritis: -Secondary to Klebsiella. -Renal US normal. -Repeat urine cx + Lyndsay-likely a colonizer -CT showed bilateral renal calculi with 2 obstructive calculi to the left -CT urogram showed renal infarct versus pyelonephritis on the left upper pole 3) Klebsiella bacteremia: from UTI. Repeat blood cx 12/20 negative 4) ?Lupus 5) Respiratory failure 6) Encephalopathy ? anoxic ? metabolic 7) Abdominal distention ? ileus 8) TAYA-better Plan: -continue fluconazole and ceftriaxone -upon discharge will do ceftriaxone 2 g IV q day and fluconazole 200 mg PO q day total 14 days from 12/20 to 01/02/17. Outpatient parenteral antibiotics orders sent to upper caser -left foot doppler arterial US - pending -remove vásquez and rectal tube when possible -patient is going to [facility] I will sign off call me for questions Thank you Dr Espinosa for your consultation, will follow up with you. Leta Xavier MD Infectious Diseases Specialist [facility] ([facility] M [phone] O [phone] Subjective Date of service: 12/29/16 Principal diagnosis: Acute resp. failure Interval history: No fever, on the vent via trach, more alert and tracking, currently on T-piece, FIO2 28% with no noted acute distress. Current Antimicrobials: ceftriaxone 12/27 fluconazole 12/24 Previous Antimicrobials: ceftriaxone 12/16 vanco 12/22 cefepime 12/22 Microbiology: Blood cultures: 12/12 Klebsiella /2 neg 12/25 ngtd Urine cultures: 12/13 Klebsiella /3 Lyndsay Respiratory cultures: 12/15 Lyndsay 12/22 pending Wound cultures: Stool cultures: Other: Objective - Exam Narrative Exam: General appearance: more alert on t-piece in NAD Eyes: anicteric sclerae, moist conjunctivae; PERRLA HENT: Atraumatic; oropharynx limited Neck: Trach Lungs: suzan rhonchi CV: RRR, no murmurs Abdomen: Soft, distended, tense, increased BS Extremities: + edema, no extremity lymphadenopathy Skin: no rash Psych: alert Neuro: alert, upper extremities contracted Lines: femoral HD cath. Vásquez in place - Constitutional Vitals: Vital Signs Temp Pulse Resp BP Pulse Ox 98.3 F 105 H 23 136/79 100 12/29/16 07:39 12/29/16 11:04 12/29/16 08:00 12/29/16 11:04 12/29/16 08:00 Temperature -Last 24 Hours Temperature 98.3 F Temperature 98.4 F Temperature 98.6 F Temperature 97.8 F Temperature 98.2 F Temperature 98.7 F - Labs CBC & Chem 7: 12/23/16 05:15 12/29/16 04:40 Labs: Abnormal lab results 12/28/16 12/28/16 12/29/16 Range/Units 11:39 17:20 00:25 Potassium (3.6-5.0) mmol/L Chloride (98-107) mmol/L Carbon Dioxide (22-30) mmol/L BUN (7-17) mg/dL Creatinine (0.7-1.2) mg/dL Glucose (65-100) mg/dL POC Glucose 295 H 303 H 292 H (70-105) AST (5-40) units/L ALT (7-56) units/L Albumin (3.9-5) g/dL 12/29/16 12/29/16 Range/Units 04:40 06:29 Potassium 3.3 L (3.6-5.0) mmol/L Chloride 114.7 H (98-107) mmol/L Carbon Dioxide 16 L (22-30) mmol/L BUN 46 H (7-17) mg/dL Creatinine 1.4 H (0.7-1.2) mg/dL Glucose 304 H (65-100) mg/dL POC Glucose 338 H (70-105) AST 108 H (5-40) units/L ALT 59 H (7-56) units/L Albumin 2.7 L (3.9-5) g/dL
--- NOTE | 2016-12-29 12:30 | Progress Note ---
Assessment and Plan - Patient Problems (1) Acute kidney failure with tubular necrosis Current Visit: Yes Status: Acute Plan to address problem: renal function improving with Cr down to 1.4mg/dl off HD since 12/26. pt with adequate urine output. no indications for further HD at present. Cont IV 1/2 NS + Kcl. (2) Renal infarction Current Visit: Yes Status: Acute Plan to address problem: follow hematology recommendations to rule out underlying hypercoagulability and possible anticoagulation (3) Sepsis due to urinary tract infection Current Visit: Yes Status: Acute Plan to address problem: Continue antibiotics and follow (4) Type 2 diabetes mellitus Current Visit: Yes Status: Chronic Qualifiers: Diabetes mellitus complication status: D Diabetes mellitus complication detail: D Diabetic retinopathy severity: D Proliferative retinopathy type: P Diabetes mellitus macular edema: D Diabetes mellitus prison insulin use : D Laterality: L Chronic kidney disease stage: C Plan to address problem: Blood sugar control by primary attending (5) Hypertension Current Visit: Yes Status: Chronic Qualifiers: Hypertension type: H Plan to address problem: Blood pressure improved on low-dose beta ariana and hydralazine prn, with parameters to hold (6) Anoxic encephalopathy Current Visit: Yes Status: Acute Plan to address problem: Continue management by neurologist. [place] for improvement in neurological status (7) Hypokalemia Current Visit: Yes Status: Acute Plan to address problem: K supplementation with IV KCl. cont maintenance 1/2NS + 40meq/L Kcl (8) Hypernatremia Current Visit: Yes Status: Acute Plan to address problem: cont 300ml q4h free water flushes via NGT along with IV 1/2 NS. na normalized (9) Left ureteral calculus Current Visit: Yes Status: Acute Plan to address problem: follow /IR recommendations Subjective Date of service: 12/29/16 Principal diagnosis: Acute resp. failure Interval history: pt opening eyes spontaneously, but not following commands. Objective - Vital Signs Vital signs: Vital Signs - 12hr 12/29/16 12/29/16 12/29/16 01:00 02:00 03:00 Temperature Pulse Rate 92 H 97 H 100 H Pulse Rate [ From Monitor] Respiratory 14 20 18 Rate Blood Pressure 124/74 136/67 144/73 O2 Sat by Pulse 100 100 100 Oximetry O2 Sat by Pulse Oximetry [ Assessment] 12/29/16 12/29/16 12/29/16 04:00 04:01 04:29 Temperature 98.4 F Pulse Rate 102 H 103 H Pulse Rate [ 102 H From Monitor] Respiratory 20 20 20 Rate Blood Pressure 135/91 135/91 O2 Sat by Pulse 97 100 100 Oximetry O2 Sat by Pulse Oximetry [ Assessment] 12/29/16 12/29/16 12/29/16 05:00 06:01 06:56 Temperature Pulse Rate 100 H 105 H 105 H Pulse Rate [ From Monitor] Respiratory 19 20 Rate Blood Pressure 130/76 140/80 O2 Sat by Pulse 100 100 Oximetry O2 Sat by Pulse Oximetry [ Assessment] 12/29/16 12/29/16 12/29/16 07:00 07:15 07:16 Temperature Pulse Rate 104 H Pulse Rate [ From Monitor] Respiratory 18 Rate Blood Pressure 135/78 O2 Sat by Pulse 100 96 Oximetry O2 Sat by Pulse 98 Oximetry [ Assessment] 12/29/16 12/29/16 12/29/16 07:39 08:00 11:04 Temperature 98.3 F Pulse Rate 103 H 105 H Pulse Rate [ 106 H From Monitor] Respiratory 21 Rate Blood Pressure 137/72 136/79 O2 Sat by Pulse 100 Oximetry O2 Sat by Pulse Oximetry [ Assessment] 12/29/16 12:23 Temperature 98.6 F Pulse Rate Pulse Rate [ From Monitor] Respiratory Rate Blood Pressure O2 Sat by Pulse Oximetry O2 Sat by Pulse Oximetry [ Assessment] - General Appearance General appearance: well-nourished, appears stated age EENT: ATNC, PERRL, mucous membranes moist Neck: no JVD Respiratory: Present: Clear to Ascultation Cardiology: regular, S1S2 Gastrointestinal: normoactive bowel sounds, obese Integumentary: no rash, other (no pitting edema ) Neurologic: obtunded - Lab 12/23/16 05:15 12/29/16 04:40 Most recent lab results Calcium 9.4 mg/dL (8.4-10.2) 12/29/16 04:40 Phosphorus 4.30 mg/dL (2.5-4.5) 12/25/16 04:38 Magnesium 1.70 mg/dL (1.7-2.3) 12/25/16 04:38
[2016-12-29 13:17] VITALS: BP 149/86
--- NOTE | 2016-12-30 11:03 | Vascular Lab Report ---
LOWER EXTREMITY ARTERIAL DUPLEX: REASON FOR EXAM: Foot ulcer. COMMENTS ON THE RIGHT: Triphasic waveforms are seen proximally. Triphasic waveforms are seen distally. No significant velocity gradients are identified. No focal significant plaque is identified. Findings are consistent with normal perfusion. Findings are consistent with the ability to heal distal wounds. COMMENTS ON THE LEFT: Triphasic waveforms are seen proximally. Triphasic waveforms are seen distally. No significant velocity gradients are identified. No focal significant plaque is identified. Findings are consistent with normal perfusion. Findings are consistent with the ability to heal distal wounds. IMPRESSION: RIGHT: Essentially normal arterial flow. LEFT:Essentially normal arterial flow.
== END 2016-12-29 13:00 | DRG 3 ==
LOC: ED 23:37 → 4A 12-12 03:44 → CC1 12-15 13:58
PROVIDERS: ADMIT Internal Medicine; ATTEND Internal Medicine
PROC: B54BZZA Ultrasonography of Right Lower Extremity Veins, Guidance (ICD-10-PCS; 2016-12-13)
PROC: 5A1955Z Respiratory Ventilation, Greater than 96 Consecutive Hours (ICD-10-PCS; 2016-12-13)
PROC: 4A033R1 Measurement of Arterial Saturation, Peripheral, Percutaneous Approach (ICD-10-PCS; 2016-12-13)
PROC: 5A1D60Z (ICD-10-PCS; 2016-12-13)
PROC: 3E0234Z Introduction of Serum, Toxoid and Vaccine into Muscle, Percutaneous Approach (ICD-10-PCS; 2016-12-13)
PROC: 5A12012 Performance of Cardiac Output, Single, Manual (ICD-10-PCS; 2016-12-13)
PROC: 06HM33Z Insertion of Infusion Device into Right Femoral Vein, Percutaneous Approach (ICD-10-PCS; principal; 2016-12-15)
PROC: 05HN33Z Insertion of Infusion Device into Left Internal Jugular Vein, Percutaneous Approach (ICD-10-PCS; 2016-12-15)
PROC: B544ZZA Ultrasonography of Left Jugular Veins, Guidance (ICD-10-PCS; 2016-12-15)
PROC: 0BB10ZZ Excision of Trachea, Open Approach (ICD-10-PCS; 2016-12-15)
PROC: 06HM33Z Insertion of Infusion Device into Right Femoral Vein, Percutaneous Approach (ICD-10-PCS; 2016-12-15)
PROC: B54BZZA Ultrasonography of Right Lower Extremity Veins, Guidance (ICD-10-PCS; 2016-12-15)
PROC: 0B110F4 Bypass Trachea to Cutaneous with Tracheostomy Device, Open Approach (ICD-10-PCS; 2016-12-18)
DX: A41.50 Gram-negative sepsis, unspecified (principal); G92 Toxic encephalopathy; I46.9 Cardiac arrest, cause unspecified; N17.0 Acute kidney failure with tubular necrosis; N18.6 End stage renal disease; J96.01 Acute respiratory failure with hypoxia; G45.9 Transient cerebral ischemic attack, unspecified; N39.0 Urinary tract infection, site not specified; Z68.41 Body mass index [BMI] 40.0-44.9, adult; E66.2 Morbid (severe) obesity with alveolar hypoventilation; G93.1 Anoxic brain damage, not elsewhere classified; I12.0 Hypertensive chronic kidney disease with stage 5 chronic kidney disease or end stage renal disease; N28.0 Ischemia and infarction of kidney; N20.2 Calculus of kidney with calculus of ureter; E87.0 Hyperosmolality and hypernatremia; Z23 Encounter for immunization; E11.621 Type 2 diabetes mellitus with foot ulcer; Z88.8 Allergy status to other drugs, medicaments and biological substances; L97.529 Non-pressure chronic ulcer of other part of left foot with unspecified severity; Z82.49 Family history of ischemic heart disease and other diseases of the circulatory system; E86.0 Dehydration; E83.42 Hypomagnesemia; E78.5 Hyperlipidemia, unspecified; E03.9 Hypothyroidism, unspecified; E87.5 Hyperkalemia; Z91.81 History of falling; M19.90 Unspecified osteoarthritis, unspecified site; E87.6 Hypokalemia; E11.22 Type 2 diabetes mellitus with diabetic chronic kidney disease
CPT/HCPCS: 36415; 36600; 70450; 70544; 70551; 71010; 74000; 74176; 74178; 76770; 77012; 80048; 80053; 80061; 80074; 80202; 80307; 81001; 82140; 82550; 82803; 82962; 83516; 83520; 83615; 83735; 84100; 84132; 84165; 84443; 84484; 85025; 85027; 85210; 85220; 85301; 85610; 85613; 85670; 85730; 86021; 86038; 86140; 86160; 87040; 87070; 87076; 87086; 87186; 87205; 88313; 88346; 88348; 90686; 90732; 93005; 93010; 93306; 93880; 93925; 93970; 94003; 94660; 94760; 95819; 96374; C1769; G8978-GP; G8979-GP; G9168-GN; G9169-GN; J0171; J0360; J0610; J0692; J0696; J1450; J1644; J1650; J1815; J1818; J1956; J2250; J2543; J3010; J3370; J3475; J3480; J7030; J7040; Q9967